=== PATIENT | female | born 1950 | race Caucasian/White ===

== ENCOUNTER → 2020-04-05 | Outpatient (CLI) | payer MEDICARE, OTHER, SELFPAY ==
[2020-03-31 13:27] VITALS: BMI 36.8
--- NOTE | 2020-04-05 11:34 | STRESSREP ---
Stress Test Report Exercise myocardial perfusion stress test. 69-year-old lady with a history of hypertension, hyperlipidemia, diabetes mellitus. Stress protocol: Resting EKG demonstrates sinus bradycardia with a rate of 54 bpm. The resting blood pressure is 134/80 mmHg. The patient exercised according to regular [place] protocol for a total duration of 5 minutes and 35 seconds. The maximum heart rate attained was 113 bpm which was 73% of maximum predicted heart rate the maximum workload was 7 metabolic equivalents. At rest there were no ST or T wave changes noted to suggest ischemia at peak exercise upsloping ST changes were noted with no meet the criteria for ischemia. Patient complained of some dizziness and lightheadedness. No chest pain however was noted. The target heart rate was not achieved. The maximum blood pressure was 162/74 mmHg. Myocardial perfusion protocol. 13.9 mCi of technetium 99m sestamibi was injected at rest. The patient exercised according to regular [place] protocol for 5-1/2 minutes. At peak exercise 44.3 mCi of technetium 99m sestamibi was injected stress images were obtained stress and rest images were reconstructed and compared in the short axis vertical long horizontal long axis. Gated images were also obtained per Perfusion SPECT analysis: Review of the stress images demonstrate normal uptake of tracer noted in all areas of the myocardium the resting images similar demonstrate normal uptake of tracer noted in all areas of the myocardium. No areas of reversibility are noted to suggest ischemia no previous infarct is noted. Gated SPECT analysis: The gated ejection fraction is 80%. Conclusion: Normal exercise myocardial perfusion stress test at a moderate workload. Target heart rate not attained. No clinical angina noted.
== END | disposition home or self-care (01) ==
LOC: CVS 06:13
PROVIDERS: Referring Provider Internal Medicine Cardiovascular Disease; Visit Provider Internal Medicine Cardiovascular Disease
DX: R06.00 Dyspnea, unspecified (principal); R06.02 Shortness of breath
CPT/HCPCS: 78452; 93017; A9500; A4216

== ENCOUNTER 2020-04-20 13:26 | Inpatient (IN) | payer MEDICARE, OTHER, SELFPAY ==
[2020-03-31 13:27] VITALS: BMI 36.8
[2020-04-16 10:30] VITALS: BMI 36.8
[2020-04-19] VITALS (18 sets, daily range): BP systolic 119–153; BP diastolic 58–100; PULSE 51–68; RESP 12–19; TEMP 36.7–36.8; O2SAT 95–99; BMI 37.3
[2020-04-19 07:37] LABS: Absolute Lymphocyte Count 2.11 X10^3/uL (0.83-4.51); Absolute Neutrophil Count 3.3 X10^3/uL (2.0-7.7); Basophil# 0.05 X10^3/uL; Basophil% 0.8 % (0-1); Eosinophil# 0.15 X10^3/uL; Eosinophils% 2.4 % (0-5); Hematocrit 42.7 % (37-47); Hemoglobin 13.6 g/dL (12.0-15.0); Lymphocyte # 2.11 X10^3/ul (4.0); Lymphocyte % 34.4 % (19-41); Mean Corp Hgb Conc 31.9 g/dL (32-36); Mean Corpuscular Hgb 26.9 pg (27.0-32.0); Mean Corpuscular Volume 84.4 fL (81-99); Mean Platelet Vol. 9.9 fl (6.2-12.0); Monocyte# 0.55 X10^3/uL; NRBC Flagged by Analyzer 0 % (0-5); Neutrophil # 3.26 X10^3/uL (2.7-7.7); Neutrophil % 53.1 % (47-70); Platelet Count 224 K/mm3 (150-450); RBC Distribution Width CV 13.5 % (11.6-14.6); RBC Distribution Width SD 41.2 fl (35.1-43.9); Red Blood Count 5.06 M/mm3 (4.2-5.4); White Blood Count 6.1 K/mm3 (4.4-11.0)
[2020-04-19 08:00] LABS: Anion Gap 6 (5-15); BUN 15 mg/dL (7-18); BUN/Creat Ratio 17.4 RATIO (10-20); Calcium,Total 8.9 mg/dL (8.5-10.1); Chloride 105 mmol/L (98-107); Creatinine, Serum 0.86 mg/dL (0.55-1.02); EST Glomerular Filtration Rate 70 mL/min (>60); Est Glom Filt Rate - Afr Amer 84 mL/min (>60); Estimated Creatinine Clearance 50.21 ml/min; Glucose 137 mg/dL (74-106); Sodium Level 138 mmol/L (136-145)
--- NOTE | 2020-04-19 10:25 | CL.D_ITS ---
Patient Name: NEDA BROOKS Study Date: 04/19/2020 Performing: Jose Luis Landa MD Ht: 62.59 inches 159 cm : 1950 Wt: 205.03 lbs 93 kg Age: 69 Gender: female BSA: 1.95 PROCEDURE(S) PERFORMED [id number]/COR/LV [id number] W OR WO PTCA, SINGLE CORONARY ARTERY CLINICAL PROFILE AND INDICATIONS Indications: Suspected CAD Heart Failure: None Stress/Imaging Date: 04/05/2020Stress Test with SPECT MPI: Positive Low Risk CAD Presentations: Stable angina. CONCLUSIONS Significant disease involving the mid left anterior descending artery with small vessel tapering off and moderate disease noted in the right coronary artery. Mild disease noted in the circumflex artery . RECOMMENDATIONS Referred for immediate PCI DESCRIPTION OF PROCEDURE The patient arrived to the procedure lab. The risks and benefits of the procedure as well as a full d escription of our services here and current unavailability of surgical backup were fully explained to the patient and/or their significant other prior to the catheterization. The Timeout was completed, verifying the correct patient and procedure. The patient's procedural site was prepped and draped in the usual fashion. Local anesthetic was given subcutaneously to right radial region with Lidocaine 2% . Using a modified Seldinger technique, arterial access was obtained via the right radial artery, a 6 Fr sheath was inserted. Right Coronary Artery selective angiography was then performed in multiple v iews using a 5 Fr. 4.0 [place] catheter. Left Coronary Artery selective angiography was performed in mu ltiple views using a 5 Fr. JL3.5 catheter. Left Ventriculography was performed in BANDA projection usin g a 5 Fr. Pigtail catheter. LV to AO pullback pressures were then recorded.The arterial sheath was pulled and a TR Band was applied for hemostasis w/ 11ml air CORONARY ANGIOGRAPHY DOMINANCE: Right Dominant LEFT HEART ASSESSMENT Left Ventricular Ejection Fraction: by LV Gram 60 % Normal LV wall motion Normal Left Ventricular systolic function LEFT MAIN: Mild calcification, Non-obstructive LEFT ANTERIOR DESCENDING ARTERY: MID LAD: 85 % Stenosis CIRCUMFLEX ARTERY: Mild luminal irregularities RIGHT CORONARY ARTERY: Mild luminal irregularities less than 30% RT PDA: Proximal - 60 % Stenosis COMPLICATIONS No Complications PROCEDURE MEDICATIONS Versed 1 mg IV Fentanyl 50 mcg IV Versed 1 mg IV Oxygen: 2 L/min via nasal cannula Brilinta 180 mg PO @ 04/19/2020 10:23:37 Heparin diluted in 23cc Heparinized saline. Patient given 10cc IA of this solution. 04/19/2020 09:19: 54 Heparin 6000 unit(s) IV 04/19/2020 09:58:39 Nitro 150 mcg IC 04/19/2020 10:12:11 Verapamil 2.5mg, Ntg 100mcgs, 2000 units of Heparin diluted in 23cc Heparinized saline. Patient give n 10cc IA of this solution. 04/19/2020 09:19:54 SUMMARY OF HEMODYNAMIC DATA Time AIR REST ECG 07:51:34 AO 124/70 (91) SA 09:22:27 LV 115/6, 9 09:36:34 LV 137/3, 11 09:36:41 LV 129/5, 11 09:37:38 LVp 129/8, 20 09:37:47 AOp 135/59 (92) 09:37:52 Signed By Jose Luis Landa MD On 04/19/2020 10:24:20 Jose Luis Landa MD
--- NOTE | 2020-04-19 11:13 | EKG12_ITS ---
Test Reason : PRE CPI Blood Pressure : / mmHG Vent. Rate : 059 BPM Atrial Rate : 059 BPM P-R Int : 182 ms QRS Dur : 078 ms QT Int : 464 ms P-R-T Axes : 042 -14 037 degrees QTc Int : 459 ms Sinus bradycardia Otherwise normal ECG No previous ECGs available Confirmed by SEVERO SOTO, JOSE LUIS ([id number]), slot editor JUSTYN PHILLIPS ([id number]) on 04/20/2020 10:15:05 AM Referred By: Jose Luis Landa Confirmed By:JOSE LUIS LANDA MD
--- NOTE | 2020-04-19 12:15 | EKG12_ITS ---
Test Reason : AM EKG Blood Pressure : / mmHG Vent. Rate : 050 BPM Atrial Rate : 050 BPM P-R Int : 174 ms QRS Dur : 082 ms QT Int : 506 ms P-R-T Axes : 047 -25 050 degrees QTc Int : 461 ms Sinus bradycardia Nonspecific T wave abnormality Abnormal ECG When compared with ECG of 19-APR-2020 11:02, MANUAL COMPARISON REQUIRED, DATA IS UNCONFIRMED Confirmed by JENS SOTO, SONYA ([id number]), restaurant expeditor JUSTYN PHILLIPS ([id number]) on 04/23/2020 9:11:29 AM Referred By: Jose Luis Landa Confirmed By:RICK COLINDRES MD
[2020-04-19] MEDS: 0.9% Normal Saline 1,000 ML 100 ML IV (13:40)
--- NOTE | 2020-04-19 14:00 | NURSING ---
Patient admitted to ICU with Integrilin infusing. Per orders, Integrilin was turned off at 1400.
[2020-04-19 15:35] LABS: Hematocrit 42.9 % (37-47); Hemoglobin 13.3 g/dL (12.0-15.0)
[2020-04-19 16:06] LABS: ACT Activated Clotting Time 202 sec (74-137)
--- NOTE | 2020-04-19 16:14 | CL.I_ITS ---
Patient Name: NEDA BROOKS Study Date: 04/19/2020 Performing: Joycelyn Weston MD Ht: 63 inches 159 cm : 1950 Wt: 205.3 lbs 93 kg Age: 69 Gender: female BSA: 1.95 PROCEDURE(S) PERFORMED [id number] W OR WO PTCA, SINGLE CORONARY ARTERY CLINICAL PROFILE AND CO-MORBIDITIES Indications: Suspected CAD Heart Failure: None Stress/Imaging Date: 04/05/2020 Stress Test with SPECT MPI: Positive Low Risk CAD Presentations: Stable angina. CONCLUSIONS Successful PTCA/SHANI to mLAD RECOMMENDATIONS ASA Indefinitley Brilinta for at least 12 months DESCRIPTION OF PROCEDURE The patient arrived to the procedure lab. The risks and benefits of the procedure as well as a full d escription of our services here and current unavailability of surgical backup were fully explained to the patient and/or their significant other prior to the catheterization. The Timeout was completed, verifying the correct patient and procedure. The patient's procedural site was prepped and draped in the usual fashion. Local anesthetic was given subcutaneously to right radial region with Lidocaine 2% Using a modified Seldinger technique,arterial access was obtained via the right radial artery, a 6Fr sheath was inserted. Right Coronary Artery selective angiography was then performed in multiple view s using a 5 Fr. 4.0 [place] catheter. Left Coronary Artery selective angiography was performed in multi ple views using a 5 Fr. JL3.5 catheter. Left Ventriculography was performed in BANDA projection using a 5 Fr. Pigtail catheter. LV to AO pullback pressures were then recorded.The images were reviewed and options discussed. A decision was then made to proceed with an Intervention, IVUS or oth er adjunct procedure. XB 3.0 Guide catheter was inserted and engaged into the LCA. BMW Guide wire was advanced to the L AD. Emerge 2.00x8 Balloon catheter was inserted. PTCA balloon inflated at 6 atms for 12 secs. Angiogr am performed post balloon dilatation. Synergy 2.25x16 Drug Eluting stent was inserted. Angiogram perf ormed post stent deployment. The arterial sheath was pulled and a TR Band was applied for hemostasi s w/ 11ml air INTERVENTION INFORMATION LESION SITE: LAD (Mid) Lesion Complexity: High/C, chronic total occlusion: No, lesion at bifurcation: Yes, thrombus present: No, lesion length: 14 mm, culprit lesion: Yes, Previously treated lesion: No Pre Stenosis: 80 % Pre intervention DUY flow: 3 PROCEDURE: Drug Eluting Stent with pre dilatation. The vessel was small in diameter at the site of the lesion and distal to it. There was a step down im mediately after the stent. We looked at this in multiple views and decided not to deploy an additiona l stent as there was a risk of perforation or dissection with that approach. Post Stenosis: 0 % Post intervention DUY flow: 3 Lesion Devices: Rico .014 BMW [employer] Straight 190cm Sage Sci EMERGE MR 2.00x08 BALLOON Cardinal 6 Fr XB3.0 100cm Guide Catheter Sage Sci Synergy MR SHANI 2.25x16 COMPLICATIONS No Complications PROCEDURE MEDICATIONS Versed 1 mg IV Fentanyl 50 mcg IV Versed 1 mg IV Oxygen: 2 L/min via nasal cannula Brilinta 180 mg PO @ 04/19/2020 10:23:37 Heparin diluted in 23cc Heparinized saline. Patient given 10cc IA of this solution. 04/19/2020 09:19: 54 Heparin 6000 unit(s) IV 04/19/2020 09:58:39 Nitro 150 mcg IC 04/19/2020 10:12:11 Verapamil 2.5mg, Ntg 100mcgs, 2000 units of Heparin diluted in 23cc Heparinized saline. Patient give n 10cc IA of this solution. 04/19/2020 09:19:54 SUMMARY OF HEMODYNAMIC DATA Time AIR REST ECG 07:51:34 AO 124/70 (91) SA 09:22:27 LV 115/6, 9 09:36:34 LV 137/3, 11 09:36:41 LV 129/5, 11 09:37:38 LVp 129/8, 20 09:37:47 AOp 135/59 (92) 09:37:52 Signed By Joycelyn Weston MD On 04/19/2020 16:13:36 Joycelyn Weston MD
--- NOTE | 2020-04-19 16:34 | CL.I_ITS ---
Patient Name: NEDA BROOKS Study Date: 04/19/2020 Performing: Joycelyn Weston MD Ht: 63 inches 159 cm : 1950 Wt: 205.3 lbs 93 kg Age: 69 Gender: female BSA: 1.95 PROCEDURE(S) PERFORMED [id number] W OR WO PTCA, SINGLE CORONARY ARTERY CLINICAL PROFILE AND CO-MORBIDITIES Indications: Worsening Angina shortly after PCI this am Heart Failure: None Stress/Imaging Stress/Image Study Performed: No CAD Presentations: Unstable angina. CONCLUSIONS Successful PCI with Drug eluting stent and PTCA to the LAD RECOMMENDATIONS Dual antiplatelet therapy for 12 mths DESCRIPTION OF PROCEDURE The patient arrived to the procedure lab. The risks and benefits of the procedure as well as a full d escription of our services here and lack of surgical backup were fully explained to the patient and/o r their significant other prior to the catheterization. The Timeout was completed, verifying the stephanie ect patient and procedure. The patient's procedural site was prepped and draped in the usual fashion. Local anesthetic was given subcutaneously to right groin region with Lidocaine 2%. Using a modified Seldinger technique, arterial access was obtained via the right femoral artery, a 6Fr sheath was inse rted.. Left Coronary Artery selective angiography was performed in multiple views using a 5 Fr. JL4 catheter XB 3.0 Guide catheter was inserted and engaged into the LCA. Whisper Guide wire was advanced to t he LAD. Emerge 1.50x15 Balloon catheter was inserted. PTCA balloon inflated at 6 atms for 11 secs. PT CA balloon inflated at 8 atms for 21 secs. PTCA balloon inflated at 10 atms for 13 secs. Angiogram pe rformed post balloon dilatation. Synergy2.25x8 Drug Eluting stent was inserted. Angiogram performed p ost stent deployment. Synergy 2.25x12 Drug Eluting stent was inserted. Angiogram performed post stent deployment. [place] Emerge 2.25x12 Balloon catheter was inserted. Angiogram performed post balloon dilata tion. Contrast was injected through the sheath and the Right Iliac and Femoral artery were assessed f or possible closure device. The arterial sheath was pulled and a Perclose closure device was deploye d for hemostasis CORONARY ANGIOGRAPHY DOMINANCE: Right Dominant LEFT MAIN: Mild luminal irregularities LEFT ANTERIOR DESCENDING ARTERY: MID LAD: 99 % Stenosis. The stent is patent but there is 99% stenosis immediately distal to it. CIRCUMFLEX ARTERY: Mild luminal irregularities RIGHT CORONARY ARTERY: Mild luminal irregularities RT PDA: Proximal - 60 % Stenosis INTERVENTION INFORMATION LESION SITE: LAD (Mid) Lesion Complexity: High/C, chronic total occlusion: No, lesion at bifurcation: Yes, thrombus present: No, lesion length: 6 mm, culprit lesion: Yes, Previously treated lesion: Yes. The lesion is at the e dge of the SHANI deployed earlier today., In-stent restenosis: No Pre Stenosis: 99 % Pre intervention DUY flow: 2 PROCEDURE: Drug Eluting Stent with pre and post dilatation Post Stenosis: 0 % Post intervention DUY flow: 3 Lesion Devices: Cardinal 6 Fr XB3.0 100cm Guide Catheter Rico .014 HT [place] Straight 190cm Sage Sci EMERGE MR 1.50x15 BALLOON Sage Sci Synergy MR SHANI 2.25x08 Sage Sci Synergy MR SHANI 2.25x12 Sage Sci [place] EMERGE MR 2.25x12 BALLOON COMPLICATIONS No Complications PROCEDURE MEDICATIONS Oxygen: 2 L/min via nasal cannula Nitro 100 mcg IC 04/19/2020 11:23:47 SUMMARY OF HEMODYNAMIC DATA Time AIR REST ECG 11:11:06 AO 162/79 (109) SA 11:23:03 Signed By Joycelyn Weston MD On 04/19/2020 16:33:13 Joycelyn Weston MD
[2020-04-19] MEDS: LORazepam 0.5 MG Tablet PO (21:28)
[2020-04-19] MEDS: TICAGRELOR 90 MG TABLET PO (21:28)
[2020-04-19] MEDS: 0.9% Saline Lock 10 ML Syringe IV (21:36)
[2020-04-19 21:49] LABS: Hemoglobin 12.9 g/dL (12.0-15.0)
[2020-04-20] VITALS (25 sets, daily range): BP systolic 102–136; BP diastolic 50–79; PULSE 48–77; RESP 10–19; TEMP 36.1–36.8; O2SAT 94–100
[2020-04-20 04:06] LABS: Hematocrit 36.2 % (37-47); Hemoglobin 11.4 g/dL (12.0-15.0); Mean Corp Hgb Conc 31.5 g/dL (32-36); Mean Corpuscular Volume 85.6 fL (81-99); Mean Platelet Vol. 10.1 fl (6.2-12.0); Platelet Count 217 K/mm3 (150-450); RBC Distribution Width CV 13.6 % (11.6-14.6); RBC Distribution Width SD 42.2 fl (35.1-43.9); Red Blood Count 4.23 M/mm3 (4.2-5.4); White Blood Count 9.7 K/mm3 (4.4-11.0)
[2020-04-20 04:22] LABS: ALB/GLOB Ratio 0.9 RATIO (0.9-2.4); AST(SGOT) 71 U/L (15-37); Alanine Aminotransfer ALT/SGPT 27 U/L (13-56); Albumin, Serum 2.8 g/dL (3.2-5.0); Alkaline Phosphatase 49 U/L (45-117); Anion Gap 8 (5-15); BUN 15 mg/dL (7-18); BUN/Creat Ratio 20.9 RATIO (10-20); Calcium,Total 7.8 mg/dL (8.5-10.1); Chloride 109 mmol/L (98-107); Creatinine, Serum 0.72 mg/dL (0.55-1.02); EST Glomerular Filtration Rate 86 mL/min (>60); Est Glom Filt Rate - Afr Amer 104 mL/min (>60); Estimated Creatinine Clearance 43.18 ml/min; Glucose 110 mg/dL (74-106); Potassium 3.4 mmol/L (3.5-5.1); Protein, Total 5.8 g/dL (6.4-8.2); Sodium Level 141 mmol/L (136-145)
--- NOTE | 2020-04-20 08:12 | HP_ITS ---
HPI HPI History of Present Illness Details: 69-year-old lady with a history of hypertension, hyperlipidemia, borderline diabetes mellitus who presented to [facility] with chest discomfort which she described as an ache rated at 5 out of 10 nonradiating without diaphoresis and associated lightheadedness on standing. She was not engaged in any particular activity when this was occurring. She denied any shortness of breath when lying flat. She was evaluated in the emergency room her EKG was noted to be normal her troponin was normal. An echocardiogram demonstrated preserved left ventricular systolic function and she had a minimally elevated natruretic peptide of 139. The EF was 60% with no wall motion abnormalities present. She was told after she was discharged that she probably needed to have a cardiac catheterization. Her lipids during that stay demonstrated total cholesterol 107, HDL 46 and LDL 102. She has had no dizziness or diaphoresis no near syncope or syncope. Her blood work as well as her electrocardiogram were reviewed. It demonstrated sinus rhythm with rate of 59 bpm and no changes. Intake Vital Signs 03/31/20 Height 5 ft 2.5 in 03/31/20 Weight: 205 lb 03/31/20 BMI 36.8 03/31/20 BP 138/76 H 03/31/20 Pulse 48 L 03/31/20 Pulse Oximetry (%) 98 Intake Visit Reasons: [place] ER 5-, possible RHC Allergies codeine Adverse Reaction (Verified 03/31/20 13:06) Diarrhea metformin Adverse Reaction (Verified 03/31/20 13:06) gi upset naproxen Adverse Reaction (Verified 03/31/20 13:06) Diarrhea Medications aspirin 81 mg tablet,delayed release 81 mg PO DAILY 03/30/20 [History Confirmed 03/31/20] atenolol 100 mg tablet 100 mg PO DAILY 03/30/20 [History Confirmed 03/31/20] hydrochlorothiazide 12.5 mg tablet 12.5 mg PO DAILY 03/30/20 [History Confirmed 03/31/20] lorazepam 0.5 mg tablet 0.5 mg PO BID PRN 03/30/20 [History Confirmed 03/31/20] pantoprazole 20 mg tablet,delayed release 20 mg PO DAILY 03/30/20 [History Confirmed 03/31/20] potassium gluconate 550 mg (90 mg) tablet 550 mg PO DAILY 03/30/20 [History Confirmed 03/31/20] quinapril 20 mg tablet 20 mg PO DAILY 03/30/20 [History Confirmed 03/31/20] Ejection fraction %: 60 to 64 [facility] Medical History Hyperlipidemia (Chronic) Essential (primary) hypertension (Chronic) Anxiety (Chronic) Obesity (Chronic) Osteoarthritis (Chronic) Type 2 diabetes mellitus (Chronic) Surgical History History of open reduction and internal fixation (ORIF) procedure (Resolved) History of tubal ligation (Resolved) Family History Sister Myocardial infarction age 53 Cancer Sister Heart disease Myocardial infarction, Onset Age: 69 Mother Myocardial infarction, Onset Age: 63 Brother Cancer Other CAD (coronary artery disease) ROS Const Const: Negative for fatigue, weakness, headache(s), frequent falls, difficulty sleeping or excessive sweating Eyes Eyes: Negative for loss of peripheral vision, transient loss of vision, blurry vision, double vision or tunnel vision ENT ENT: Negative for headache(s), dizziness, Nosebleed/epistaxis or balance problems Cardio Chest Pain: Yes (Chest discomfort at rest for several years) Character: tightness Onset: at rest Location: mid sternal, left chest Duration: minutes Exacerbation: activity, rest Palpitations: No Edema: None Muscle aches with walking: None Resp Respiratory: Positive for SOB with activity; negative for SOB at rest, SOB orthopnea\SOB lying down, Cough or paroxysmal nocturnal dyspnea GI GI: Negative nausea, vomiting, heartburn or black,tarry stools : Negative for hematuria Musc Musc: Negative for muscle aches/ myalgia, muscle weakness, joint pain or balance problems Skin Skin: Negative non-healing lesions, rash or unusual bruising Neuro Neuro: Negative for dizziness, lightheadedness, near syncope, syncope, orthostatic symptoms, frequent falls, headache(s), weakness, blurry vision, double vision or lack of coordination Alek Hematologic/Lymphatic: Negative for easy bleeding or easy bruising Endo Endo: Negative for fatigue, excessive sweating or increased thirst/drinking Psych Psych: Negative for anxiety or depression Allergy Allergy/Immunology: Negative for hives, Negative for rash Cardiology Exam Const Appearance: cooperative, healthy appearing, no acute distress, well developed and well groomed Nutritional Appearance: average body habitus and well nourished Orientation: alert, awake and oriented x3 Head Head: normal to inspection, normocephalic and atraumatic Ears: hearing grossly normal bilaterally and external ears normal Nose: external nose normal, nares normal, nasal mucous membranes and turbinates normal, septum normal, no nasal discharge Face and Sinus: face symmetric Mouth: oral mucosae normal, tongue normal, oropharynx normal and moist mucous membranes Teeth and gingiva: dentition normal Throat: posterior oropharynx normal, tonsils normal and uvula midline Eyes General: appearance normal, both eyes and all related structures Eyelids: eyelids normal Conjunctivae: conjunctivae normal Pupils: PERRL, normal by confrontation and accommodation normal EOM: EOM intact bilaterally Neck Neck: normal visual inspection, trachea midline and no JVD JVD: +5 Carotids: normal carotid upstroke and bounding pulses Chest Chest inspection: normal inspection of the chest, symmetric chest movement and normal respiratory effort Auscultation: Bilateral: Clear to Auscultation Cardio Palpation: normal PMI Rate: regular rate Rhythm: regular rhythm Heart sounds: S1 normal, S2 normal and normal, physiologic split S2; negative rub, gallop or murmur GI GI: normal to inspection, soft, no hepatosplenomegaly and bowel sounds present Neuro General: alert, awake, oriented x3, gait normal, moves all extremities and no focal sensory deficit Skin Skin: no rashes or lesions noted Extremities Pulses: Normal: Right Femoral Pulse, Left Femoral Pulse, Right Dorsalis Pedis Pulse, Left Dorsalis Pedis Pulse, Right Posterior Tibial Pulse, Left Posterior Tibial Pulse, Right Radial Pulse, Left Radial Pulse Lower Extremity Edema: None: Bilateral Musculoskel Musculoskeletal: No joint tenderness Psych Psychological: normal affect Assessment & Plan 1. Chest pain R07.9 Plan She does have some shortness of breath etiology of which is not entirely clear at this particular time. It could be an anginal equivalent. Her natruretic peptide level was just mildly elevated. I would like us to proceed with a stress test prior to performing any left heart catheterization. I discussed the above with her she understands and agrees to proceed. Depending on the findings of the above further recommendations will then be made. 2. Dyspnea on exertion R06.00 Plan She does have some dyspnea on exertion. Her ejection fraction was noted to be preserved estimated at 60% with no wall motion abnormalities present. I would not recommend we make any other changes. I do not think that she necessarily needs a diuretic. Orders Orders: Nuclear Stress Test - Treadmil Today 3. Essential (primary) hypertension I10 Plan She will remain on the beta-carlos manuel as well as the INA inhibitor at this particular time together with her hydrochlorothiazide. Her blood pressure today appears to be under good control. Plan Detail Follow Up 1 Month (mmm) Coding Level of Care Code Off vis,new,level 4 Diagnoses Chest pain R07.9 Dyspnea on exertion R06.00 Essential (primary) hypertension I10 Coding Level of Care Code Off vis,new,level 4 Diagnoses Chest pain R07.9 Dyspnea on exertion R06.00 Essential (primary) hypertension I10
--- NOTE | 2020-04-20 08:25 | PN.CARD_ITS ---
Subjectve: Patient seen and evaluated. Appears to be doing better. No further GI bleeding. Objective: Vital Signs Temp Pulse Resp BP Pulse Ox 97 F L 52 L 12 128/51 H 97 04/20/20 04:00 04/20/20 07:37 04/20/20 06:00 04/20/20 06:00 04/20/20 06:00 Oxygen Delivery Method Room Air Weight: 204 lb 2.369 oz Body Mass Index (BMI) 37.3 Intake and Output for Last 24 Hours 04/18/20 04/19/20 04/20/20 23:59 23:59 23:59 Intake Total 813.33 / 1063.33 550 / 550 Output Total 1025 / 1025 0 / 0 Balance -211.67 / 38.33 550 / 550 General: Awake, Alert, Oriented x 3 HEENT: PERRL, EOMI, Sclera Non Icteric Neck: Supple, Good ROM, No Lymph Node Enlargement Lungs: Clear to auscultation Cardiovascular: Regular Rhythm, Normal S1, Normal S2, No Murmurs, No Rubs, No Gallops Vascular: No Carotid Bruits, Normal Femoral Pulses, Normal Radial Pulses, Normal Dorsalis Pedal Pulse, Normal Posterior Tibial Pulses Abdomen: Bowel Sounds Present, Soft, Non Tender, No HSM, No Organomegaly Extremities: No Cyanosis, No Clubbing, No edema Musculoskeletal: No Erythema Skin: No Rashes Lymphatic: No Lymph Node Enlargement Neurological: No Focal Motor or Sensory Deficit Psych/Mental Status: Appropriate 04/19/20 15:20: Hgb 13.3, Hct 42.9 04/19/20 21:35: Hgb 12.9, Hct 41.0 04/20/20 03:35: WBC 9.7, RBC 4.23, Hgb 11.4 L, Hct 36.2 L, MCV 85.6, MCH 27.0, MCHC 31.5 L, Plt Count 217, MPV 10.1 04/20/20 03:35: Sodium 141, Potassium 3.4 L, Chloride 109 H, Carbon Dioxide 24.0, Anion Gap 8, BUN 15, Creatinine 0.72, Est GFR (MDRD) Af Amer 104, Est GFR (MDRD) Non-Af 86, BUN/Creatinine Ratio 20.9 H, Glucose 110 H, Calcium 7.8 L, Total Bilirubin 0.90 Rhythm: EKG: ECHO: Stress Test: Cardiac Cath: PCI: CT Surgery: Holter monitor: EPS: PPM: CXR: Chest CT Scan: Medical Necessity - Tobacco Use Smoking Status: Former smoker Assessment/Plan 1. Status post angioplasty and stenting of the mid left anterior descending artery * The patient underwent angioplasty and stenting of the mid left anterior descending artery. She had to be taken back to the lab yesterday following acute thrombosis of the post stent area. She appears to have done well. EKG this morning does not demonstrate any significant abnormality. Denies any chest pain. Groin and radial site appears to be stable. * Will continue to follow on aspirin and ticagrelor. * Recommend obtain one troponin level. 2. Status post acute GI bleed following coronary intervention * The nature of the bleed appears to be lower GI. Would recommend a GI evaluation eventually. I have consulted the surgeon, Dr. Myrick and have spoken to him. The timing of the lower GI scope will be left up to him. * * Will repeat CBC later today
--- NOTE | 2020-04-20 08:52 | CRPHASE1 ---
Patient Communication PHII Cardiac Rehab Discussed with Patient:: Yes Guide to Cardiac Rehab Given to Patient:: Yes Cardiac Rehab Facility Choice List Given to Patient:: Yes Choice Program [facility] CR PHII:: Communication Given to CR Choice Program Other:: Communication Given to CR Air Sampler:: [facility] Phase II Cardiac Rehab:: Yes Sessions:: 36 sessions - 3 days/wk, 12 weeks Risk Factors/Lifestyle Smoking Status: Former smoker Second-Hand Smoke:: No Hx Hypertension: Yes Hx Metabolic Disorders: Yes Hx Dyslipidemia: Yes Hx Obesity: Yes Post-Menopausal: Yes ETOH: No Caffeine: No Substance Abuse: No Risk Factor for Sedentary Lifestyle: Moderate Risk Family History: Family History (Last Reviewed 03/31/20 @ 14:[address] Jose Luis Landa MD) Sister Myocardial infarction Cancer Sister Heart disease Myocardial infarction, Onset Age: 69 Mother Myocardial infarction, Onset Age: 63 Brother Cancer Other CAD (coronary artery disease) Family History: Cancer, Heart Disease Cardiac Rehabilitation Info Cardiac Rehabilitation Program Information: Cardiac Rehabilitation is important for patients like you who are recovering from a heart problem. Cardiac rehabilitation programs are recognized as integral to the continued care of the patient with coronary heart disease. The cardiac rehabilitation program is designed to optimize a patient's physical, psychological, and social functioning. Health toddler caregiver work in cardiac rehabilitation programs and assist you with getting the treatments you need to get stronger and healthier - like exercise, healthy eating habits, and medications. Cardiac rehabilitation has been show to help people with heart problems live longer and have better life enjoyment than people who do not go to cardiac rehabilitation. Please contact the Cardiac Rehabilitation Program at [facility] at in two weeks if you have not heard from them.
--- NOTE | 2020-04-20 08:54 | CRPH1.INSTRU ---
General Education CAD and cardiac anatomy and function:: Patient communicates acknowledgment Explanation of diagnoses and procedures:: Patient communicates acknowledgment Sign/Symptoms of OK:: Patient communicates acknowledgment Antiplatelet therapy: Patient communicates acknowledgment Proper use of NTG-SL: Patient communicates acknowledgment Emergency procedures and activation of EMS: Patient communicates acknowledgment Compliance of all prescribed medications: Patient communicates acknowledgment Smoking Patient Nicotine/Smoking Risk Factors Are:: Non-smoker Dyslipidemia Recommendations Include:: Lipid profile not available Dyslipidemia Response Code:: Patient communicates acknowledgment Overweight/Obesity Patient Overweight/Obesity Risk Factors Are:: BMI Normal [24-29 & > 65 years old], Overweight = 26-29, Obesity - > or = 30 Recommendations Include:: Weight loss of 5-10%, Reduced calorie diet, Exercise 5-7 times/week Overweight/Obesity:: Patient communicates acknowledgment Hypertension Recommendations Include:: BP <130/80 if diabetic, DASH dietary guidelines, Decrease/maintain normal body weight Hypertension:: Patient communicates acknowledgment Heart Disease Patient Heart Disease Risk Factors Are:: Family history of heart disease < 65 years old Heart Disease Response Code:: Patient communicates acknowledgment Diabetes Patient Diabetes Risk Factors Are:: Elevated blood sugars Recommendations Include:: Maintain fasting blood sugars 70-110 md/dL, Maintain HgbA1c of 6% or less, Monitor blood sugar as prescribed, Diabetic dietary guidelines, Decrease/maintain body weight Diabetes:: Patient communicates acknowledgment Sedentary Patient Sedentary Risk Factors Are:: Lack of regular exercise Recommendations Include:: Aerobic exercise 5-7 times/week for 20-30 minutes continuously, Benefits of regular exercise, Discussed home walking program, Monitored Outpatient Cardiac Rehab Sedentary Response Code:: Patient communicates acknowledgment Stress Patient Stress Risk Factors Are:: Patient denies stress as a risk factor
[2020-04-20] MEDS: TICAGRELOR 90 MG TABLET PO ×2 (08:58→21:18)
[2020-04-20] MEDS: Aspirin E.C. 81 MG Tablet PO (08:59)
[2020-04-20] MEDS: Lisinopril 20 MG Tablet PO (08:59)
[2020-04-20] MEDS: hydroCHLOROthiazide 12.5mg 12.5 MG PO (08:59)
[2020-04-20] MEDS: 0.9% Saline Lock 10 ML Syringe IV ×2 (09:01→22:27)
[2020-04-20] MEDS: Atenolol 50 MG Tablet PO (09:01)
--- NOTE | 2020-04-20 09:30 | PCM.CONS.GEN ---
Problem List (1) GI bleed Status: Acute Qualifiers: GI bleed type/associated pathology: anorectal hemorrhage Qualified Code(s): K62.5 - Hemorrhage of anus and rectum Reason for Consult Date of Consultation: 04/20/20 Reason for Consultation: Anorectal hemorrhage History of Present Illness: The patient is a 69 year old F who had 2 separate heart catheterizations performed yesterday. Patient was heparinized during these procedures. Yesterday after the procedure the patient had bright red blood per stool. She reports overnight this decreased severely and this morning early she did pass a small blood clot but she is not passing blood like she was yesterday. She had some abdominal cramping yesterday but that has resolved. No nausea or vomiting. She does report that she has had intermittent bright red bleeding with constipation episodes in the past. She likely has hemorrhoids. The patient reports that she had a colonoscopy 4 to 5 years ago which was normal. She has no family history of colon cancer. Past Medical History Past Medical History (Chronic Problems): Chronic Problems (Last Updated 04/19/20 @ 20:31 by Antoinette Winchester) Atherosclerosis of coronary artery without angina pectoris (Chronic) Essential (primary) hypertension (Chronic) Hyperlipidemia (Chronic) Medical History: Medical History (Last Updated 04/19/20 @ 20:31 by Antoinette Winchester) Atherosclerosis of coronary artery without angina pectoris (Chronic) I25.10 Essential (primary) hypertension (Chronic) I10 Hyperlipidemia (Chronic) E78.5 Anxiety F41.9 Obesity E66.9 Osteoarthritis M19.90 Type 2 diabetes mellitus E11.9 Allergies codeine Adverse Reaction (Verified 03/31/20 13:06) Diarrhea metformin Adverse Reaction (Verified 03/31/20 13:06) gi upset naproxen Adverse Reaction (Verified 03/31/20 13:06) Diarrhea Home Medications: Ambulatory Orders Medication Instructions Recorded aspirin 81 mg tablet,delayed 81 mg PO DAILY 03/30/20 release atenolol 100 mg tablet 100 mg PO DAILY 03/30/20 hydrochlorothiazide 12.5 mg tablet 12.5 mg PO DAILY 03/30/20 lorazepam 0.5 mg tablet 0.5 mg PO BID PRN 03/30/20 pantoprazole 20 mg tablet,delayed 20 mg PO DAILY 03/30/20 release potassium gluconate 550 mg (90 mg) 550 mg PO DAILY 03/30/20 tablet quinapril 20 mg tablet 20 mg PO DAILY 03/30/20 Surgical History: Surgical History (Last Updated 04/19/20 @ 20:31 by Antoinette Winchester) History of coronary artery stent placement (Resolved) Onset Date: 04/19/20 Z95.5 Pci-SHANI-Mid LAD w/ Synergy 2.25 x 12 mm and a 2.25 x 8 mm Synergy 04/19/2020 History of open reduction and internal fixation (ORIF) procedure Z98.890 left ankle History of tubal ligation Z98.51 Smoking Status: Former smoker Review of Systems Constitutional: Denies: Anorexia, Fever HEENT: Denies: Difficulty Swallowing Respiratory: Denies: Cough, Shortness of Breath Gastrointestinal: Reports: Hematochezia, - - Cramping Genitourinary: Denies: Dysuria Musculoskeletal: Denies: Joint Tenderness Skin: Denies: Jaundice Neurological: Denies: Balance problems Patient Problems: Active and Suspected Problems (Last Updated 04/19/20 @ 20:31 by Antoinette Winchester) GI bleed (Acute) - Physical Exam Vitals/I&O's: Vital Signs Temp Pulse Resp BP Pulse Ox 97.8 F 56 L 13 119/62 97 04/20/20 08:00 04/20/20 08:00 04/20/20 08:00 04/20/20 08:00 04/20/20 09:00 Oxygen Delivery Method Room Air Weight: 204 lb 2.369 oz Body Mass Index (BMI) 37.3 Intake and Output for Last 24 Hours 04/18/20 04/19/20 04/20/20 23:59 23:59 23:59 Intake Total 813.33 / 1063.33 660 / 660 Output Total 1025 / 1025 0 / 0 Balance -211.67 / 38.33 660 / 660 General: Alert, Oriented x3 Neck: No JVD Lungs: Normal air movement Cardiovascular: Regular rate, Regular Rhythm Abdomen: Soft, Non Tender, Non-Distended Musculoskeletal: No Muscle Wasting Neurological: Cranial nerves II-XII grossly intact Psych/Mental Status: Normal Affect Microbiology Past 72 Hours 04/19/20 15:15 Stool Stool Occult Blood (BENI) - Final Laboratory Results 04/19/20 11:25: Activated Clotting Time 202 H 07/13/20 15:20: Hgb 13.3, Hct 42.9 04/19/20 21:35: Hgb 12.9, Hct 41.0 04/20/20 03:35: WBC 9.7, RBC 4.23, Hgb 11.4 L, Hct 36.2 L, MCV 85.6, MCH 27.0, MCHC 31.5 L, RDW Std Deviation 42.2, RDW Coeff of Ibrahima 13.6, Plt Count 217, MPV 10.1 04/20/20 03:35: Sodium 141, Potassium 3.4 L, Chloride 109 H, Carbon Dioxide 24.0, Anion Gap 8, BUN 15, Creatinine 0.72, Estim Creat Clear Calc 43.18, Est GFR (MDRD) Af Amer 104, Est GFR (MDRD) Non-Af 86, BUN/Creatinine Ratio 20.9 H, Glucose 110 H, Calcium 7.8 L, Total Bilirubin 0.90, AST 71 H, ALT 27, Alkaline Phosphatase 49, Total Protein 5.8 L, Albumin 2.8 L, Globulin 3.0, Albumin/Globulin Ratio 0.9 Current Medications Aspirin (Ecotrin) 81 mg PO DAILY [facility] Last Admin: 04/20/20 08:59 Dose: 81 mg Documented by: Atenolol (Tenormin (Beta Christine)) 50 mg PO X1 ONE Stop: 04/20/20 10:01 Last Admin: 04/20/20 09:01 Dose: 50 mg Documented by: Atenolol (Tenormin (Beta Christine)) 100 mg PO DAILY [facility] Atropine Sulfate () 0.5 mg IV UD PRN PRN Reason: HR <50 bpm Heparin Sodium (Beef Lung) (Heparin 500 Unit/5 Ml (100/Ml)) 500 unit IV UD PRN PRN Reason: HEPARIN FLUSH Hydrochlorothiazide () 12.5 mg PO DAILY [facility] Last Admin: 04/20/20 08:59 Dose: 12.5 mg Documented by: Pantoprazole Sodium 40 mg/ (Sodium Chloride) 110 mls @ 330 mls/hr IV Q12 [facility] Last Infusion: 04/20/20 09:22 Dose: Infused Documented by: Labetalol HCl (Trandate) 5 mg IV X1 PRN PRN Reason: SBP > 160 when pulling sheath Stop: 04/21/20 12:05 Lisinopril (Zestril) 20 mg PO DAILY [facility] Last Admin: 04/20/20 08:59 Dose: 20 mg Documented by: Lorazepam (Ativan) 0.5 mg PO BID PRN PRN PRN Reason: ANXIETY Last Admin: 04/19/20 21:28 Dose: 0.5 mg Documented by: Potassium Chloride (K-Dur) 20 meq PO BIDCM [facility] Last Admin: 04/20/20 08:58 Dose: 20 meq Documented by: Sodium Chloride () 500 ml IV BOLUS PRN PRN Reason: VASO-VAGAL PROTOCOL Sodium Chloride () 10 - 40 ml IV UD PRN PRN Reason: SALINE FLUSH Last Admin: 04/20/20 09:01 Dose: 20 ml Documented by: Ticagrelor (Brilinta) 90 mg PO BID [facility] Last Admin: 04/20/20 08:58 Dose: 90 mg Documented by: Assessment/Plan All Active Problems (Last Updated 04/19/20 @ 20:31 by Antoinette Winchester) GI bleed (Acute) Dyspnea on exertion (Acute) Chest pain (Acute) History of coronary artery stent placement (Resolved 04/19/20) 69-year-old female with GI bleed 1. The patient had bright red bleeding per rectum yesterday. She does have a history of hemorrhoids with intermittent bleeding when she does have constipation. She had a colonoscopy 4 to 5 years ago which was normal. The bleeding has decreased and she only passed a small blood clot this morning with no further cramping. Her hemoglobin did drop by 2 g. I recommend continuing clear liquids today and observing her hemoglobin and seeing if she continues to bleed. If she does continue to bleed and her hemoglobin trends downward I would recommend bowel prep tomorrow and colonoscopy . If the bleeding ceases, I would recommend following up as an outpatient I will perform an outpatient colonoscopy on her Brilinta. Adonay Fofana MD Pager: [facility] [address] [place] [address], [address] [place] [address] Office:
--- NOTE | 2020-04-20 10:00 | EKG12_ITS ---
Test Reason : PCI Blood Pressure : / mmHG Vent. Rate : 063 BPM Atrial Rate : 063 BPM P-R Int : 178 ms QRS Dur : 080 ms QT Int : 466 ms P-R-T Axes : 064 -21 029 degrees QTc Int : 476 ms Sinus rhythm with occasional Premature ventricular complexes Otherwise normal ECG No previous ECGs available Confirmed by JENS SOTO, SONYA ([id number]), movie editor JUSTYN PHILLIPS ([id number]) on 04/23/2020 9:11:52 AM Referred By: Jose Luis Landa Confirmed By:RICK COLINDRES MD
[2020-04-20] MEDS: LORazepam 0.5 MG Tablet PO (14:59)
[2020-04-20 15:17] LABS: Hematocrit 40.7 % (37-47); Hemoglobin 12.7 g/dL (12.0-15.0)
[2020-04-21] VITALS (7 sets, daily range): BP systolic 110–138; BP diastolic 58–68; PULSE 52–61; RESP 16–17; TEMP 36.4–36.8; O2SAT 96–100
[2020-04-21] MEDS: LORazepam 0.5 MG Tablet PO (00:45)
[2020-04-21] MEDS: 0.9% Saline Lock 10 ML Syringe IV ×2 (04:57→11:05)
--- NOTE | 2020-04-21 08:01 | ECHOCS_ITS ---
Reason For Study: CAD/ASHD Procedure This was a 2D Doppler, Color Flow transthoracic echocardiogram. The study was technically difficult. Contrast injection was performed. Exam performed portable in patient room. Left Ventricle Normal LV size. The estimated ejection fraction is 45 %. Mild segmental systolic dysfunction (see wall motion). Stage 1 diastolic dysfunction. [place] : Hypokinetic. Mid-anteroseptal : Hypokinetic. Mid-Anterior : Hypokinetic. Inferior [place] : Hypokinetic. The rest of the wall segments are normal. Right Ventricle Normal RV size. Normal systolic function. Atria Normal left atrium. Normal right atrium. Mitral Valve Normal mitral valve. Mild (1+) eccentric mitral valve insufficiency. Tricuspid Valve Normal tricuspid valve. Mild (1+) tricuspid valve insufficiency. Pulmonary artery systolic pressure is 34 mmHg. Aortic Valve The aortic valve is not well visualized. Pulmonic Valve Normal pulmonic valve. Great Vessels Normal aortic root. The pulmonary artery is normal size. Normal inferior vena cava. Pericardium/Pleural No pericardial effusion. Medication Diluted definity 2ml given slow IV push to enhance endocardial definition. MMode/2D Measurements & Calculations LVIDd: 5.1 cm IVSd: 1.1 cm Ao root diam: 3.2 cm LVIDs: 3.0 cm LVPWd: 1.1 cm FS: 40.9 % LAV(MOD-bp): 51.6 ml LA A4 area: 18.4 cm2 RA A4 area: 15.6 cm2 LAV(MOD-bp) Indexed: 27.0 ml/m2 LAV(MOD-sp2): 53.6 ml LAV(MOD-sp4): 46.3 ml Time Measurements MV dec time: 0.31 sec Doppler Measurements & Calculations MV E max brandon: 64.7 cm/sec Lat Peak E' Brandon: 6.5 cm/sec Med Peak E' Brandon: 7.2 cm/sec MV A max brandon: 90.1 cm/sec E/E' lat: 10.0 E/E' med: 9.0 MV E/A: 0.72 MV V2 max: 105.9 cm/sec MV P1/2t max brandon: 69.3 cm/sec Ao V2 max: 104.0 cm/sec MV max P.5 mmHg MV P1/2t: 121.7 msec Ao max P.3 mmHg MV V2 mean: 52.3 cm/sec MV dec slope: 166.9 cm/sec2 MV mean P.3 mmHg MV V2 VTI: 31.8 cm MVA(P1/2t): 1.8 cm2 LV V1 max: 95.6 cm/sec PA V2 max: 110.7 cm/sec TR max brandon: 270.1 cm/sec LV V1 max P.7 mmHg TR max P.2 mmHg Interpretation Summary Normal LV size. The estimated ejection fraction is 45 %. Mild segmental systolic dysfunction (see wall motion). Stage 1 diastolic dysfunction. Contrast injection was performed. Ordering Physician: Jose Luis Landa Referring Physician: Jose Luis Landa Performed By: Zeke Perry RCS
[2020-04-21 08:17] LABS: Hematocrit 36.5 % (37-47); Hemoglobin 11.5 g/dL (12.0-15.0); Mean Corp Hgb Conc 31.5 g/dL (32-36); Mean Corpuscular Hgb 26.7 pg (27.0-32.0); Mean Corpuscular Volume 84.7 fL (81-99); Mean Platelet Vol. 10.6 fl (6.2-12.0); Platelet Count 204 K/mm3 (150-450); RBC Distribution Width CV 13.4 % (11.6-14.6); Red Blood Count 4.31 M/mm3 (4.2-5.4)
[2020-04-21 08:39] LABS: Anion Gap 7 (5-15); BUN 10 mg/dL (7-18); BUN/Creat Ratio 13.1 RATIO (10-20); Calcium,Total 8.4 mg/dL (8.5-10.1); Chloride 105 mmol/L (98-107); Creatinine, Serum 0.76 mg/dL (0.55-1.02); EST Glomerular Filtration Rate 80 mL/min (>60); Est Glom Filt Rate - Afr Amer 97 mL/min (>60); Estimated Creatinine Clearance 43.18 ml/min; Glucose 119 mg/dL (74-106); Potassium 3.8 mmol/L (3.5-5.1); Sodium Level 134 mmol/L (136-145)
[2020-04-21] MEDS: Lisinopril 20 MG Tablet PO (09:20)
[2020-04-21] MEDS: Atenolol 100 MG Tablet PO (09:20)
[2020-04-21] MEDS: TICAGRELOR 90 MG TABLET PO (09:20)
[2020-04-21] MEDS: Aspirin E.C. 81 MG Tablet PO (09:20)
--- NOTE | 2020-04-21 10:00 | EKG12_ITS ---
Test Reason : AM EKG Blood Pressure : / mmHG Vent. Rate : 059 BPM Atrial Rate : 059 BPM P-R Int : 174 ms QRS Dur : 080 ms QT Int : 550 ms P-R-T Axes : 004 -21 198 degrees QTc Int : 544 ms Sinus bradycardia Marked T wave abnormality, consider anterolateral ischemia Prolonged QT Abnormal ECG When compared with ECG of 20-APR-2020 03:32, MANUAL COMPARISON REQUIRED, DATA IS UNCONFIRMED Confirmed by JENS SOTO, SONYA ([id number]), clinical editor JUSTYN PHILLIPS ([id number]) on 04/23/2020 9:14:07 AM Referred By: Jose Luis Landa Confirmed By:RICK COLINDRES MD
--- NOTE | 2020-04-21 10:01 | PN.SURG_ITS ---
Patient Problems: Active and Suspected Problems (Last Updated 04/19/20 @ 20:31 by Antoinette Winchester) History of non-ST elevation myocardial infarction (NSTEMI) (Acute 04/20/20) GI bleed (Acute) Subjective: Patient reports she had a small spot of blood during her last bowel movement but otherwise she had no bloody bowel movements overnight. She is not having any nausea or vomiting. - Physical Exam Vitals/I&O's: Vital Signs Temp Pulse Resp BP Pulse Ox 97.5 F L 61 17 110/68 97 04/21/20 08:58 04/21/20 08:58 04/21/20 08:58 04/21/20 08:58 04/21/20 08:58 Oxygen Delivery Method Room Air Weight: 199 lb 1.239 oz Body Mass Index (BMI) 37.3 Intake and Output for Last 24 Hours 04/19/20 04/20/20 04/21/20 23:59 23:59 23:59 Intake Total 813.33 / 1063.33 1880 / 1880 100 / 100 Output Total 1025 / 1025 525 / 525 300 / 300 Balance -211.67 / 38.33 1355 / 1355 -200 / -200 General: Alert, Oriented x3 Lungs: Normal air movement Abdomen: Soft, Non Tender, Non-Distended Microbiology Past 72 Hours 04/19/20 15:15 Stool Stool Occult Blood (BENI) - Final Laboratory Results 04/20/20 15:00: Hgb 12.7, Hct 40.7 04/20/20 15:00: Troponin I 12.000 H* 04/21/20 08:04: WBC 8.0, RBC 4.31, Hgb 11.5 L, Hct 36.5 L, MCV 84.7, MCH 26.7 L, MCHC 31.5 L, RDW Std Deviation 42.0, RDW Coeff of Ibrahima 13.4, Plt Count 204, MPV 10.6 04/21/20 08:04: Sodium 134 L, Potassium 3.8, Chloride 105, Carbon Dioxide 22.0, Anion Gap 7, BUN 10, Creatinine 0.76, Estim Creat Clear Calc 43.18, Est GFR (MDRD) Af Amer 97, Est GFR (MDRD) Non-Af 80, BUN/Creatinine Ratio 13.1, Glucose 119 H, Calcium 8.4 L Current Medications Aspirin (Ecotrin) 81 mg PO DAILY [facility] Last Admin: 04/21/20 09:20 Dose: 81 mg Documented by: Atenolol (Tenormin (Beta Christine)) 100 mg PO DAILY [facility] Last Admin: 04/21/20 09:20 Dose: 100 mg Documented by: Atropine Sulfate () 0.5 mg IV UD PRN PRN Reason: HR <50 bpm Heparin Sodium (Beef Lung) (Heparin 500 Unit/5 Ml (100/Ml)) 500 unit IV UD PRN PRN Reason: HEPARIN FLUSH Hydrochlorothiazide () 12.5 mg PO DAILY [facility] Last Admin: 04/20/20 08:59 Dose: 12.5 mg Documented by: Pantoprazole Sodium 40 mg/ (Sodium Chloride) 110 mls @ 330 mls/hr IV Q12 [facility] Last Infusion: 04/20/20 22:30 Dose: Infused Documented by: Labetalol HCl (Trandate) 5 mg IV X1 PRN PRN Reason: SBP > 160 when pulling sheath Stop: 04/21/20 12:05 Lisinopril (Zestril) 20 mg PO DAILY [facility] Last Admin: 04/21/20 09:20 Dose: 20 mg Documented by: Lorazepam (Ativan) 0.5 mg PO BID PRN PRN PRN Reason: ANXIETY Last Admin: 04/21/20 00:45 Dose: 0.5 mg Documented by: Potassium Chloride (K-Dur) 20 meq PO BIDCM [facility] Last Admin: 04/21/20 09:20 Dose: 20 meq Documented by: Sodium Chloride () 500 ml IV BOLUS PRN PRN Reason: VASO-VAGAL PROTOCOL Sodium Chloride () 10 - 40 ml IV UD PRN PRN Reason: SALINE FLUSH Last Admin: 04/21/20 04:57 Dose: 10 ml Documented by: Ticagrelor (Brilinta) 90 mg PO BID [facility] Last Admin: 04/21/20 09:20 Dose: 90 mg Documented by: Medical Necessity - Tobacco Use Smoking Status: Former smoker Assessment/Plan All Active Problems (Last Updated 04/19/20 @ 20:31 by Antoinette Winchester) History of non-ST elevation myocardial infarction (NSTEMI) (Acute 04/20/20) GI bleed (Acute) Dyspnea on exertion (Acute) Chest pain (Acute) History of coronary artery stent placement (Resolved 04/19/20) 69-year-old female with GI bleed status post heart catheterization 1. Patient reports that her bleeding has decreased significantly and her hemoglobin is stable. I am okay with regular diet if it is okay with Dr. Landa. I will plan on an outpatient endoscopy on her Brilinta. She is to follow-up with me to get this scheduled and see me in the office. Adonay Fofana MD Pager: [facility] [address] [place] [address], [address] [place] [address] Office:
[2020-04-21] MEDS: hydroCHLOROthiazide 12.5mg 12.5 MG PO (11:05)
--- NOTE | 2020-04-21 11:57 | CASEMGMT ---
MATTHEW GRIFFITH assessment: Face to Face with patient for initial transition planning/care coordination assessment. MATTHEW GRIFFITH introduced self and role at [facility], pt voices understanding and consents to assessment at this time. Pt is sitting up in chair in no distress at this time. Pt is A/Ox4 at this time and answers all questions appropriately at this time. Care providers, pharmacy, and demographics verified/updated at this time. Presentation: Pt presented for OP cath Admitting dx: CP, HTN, FORTE, Abn stress PCP: Paige Specialists: Cordell, cardio; Caustic Operator(cannot remember name) Preferred Pharmacy: [facility] Insurance: MCR A/B, Prescription Benefit: Living Will/HPOA: Pt states has LW/HPOA and is aware that they are not on file at [facility] at this time. Pt states that her , Terell Deng, is HPOA. LNOK: Terell Deng, Living Arrangements: Pt states lives with on main level of 1.5 story home and states no concerns at home at this time. Pt states is independent with ADL's. Transportation: Pt states drives self and states no transportation concerns at this time. DME/HHC: Pt states has no current DME or need for any at this time. Pt states no hx of HHC or SNF in the past. Pt states no concerns with going home at time of discharge. Pt is retired. Pt states does not smoke or drink ETOH. Pt states no further concerns/needs at this time. CM to follow for any further discharge planning/needs. Advised pt to ask for CM if any further questions/concerns/needs arise, voices understanding. Pt Goal: Home Plan[place] MATTHEW GRIFFITH
--- NOTE | 2020-04-21 13:50 | PN.CARD_ITS ---
Subjectve: patient seen and evaluated Objective: Vital Signs Temp Pulse Resp BP Pulse Ox 97.5 F L 52 L 17 110/68 97 04/21/20 08:58 04/21/20 11:35 04/21/20 08:58 04/21/20 08:58 04/21/20 08:58 Oxygen Delivery Method Room Air Weight: 199 lb 1.239 oz Body Mass Index (BMI) 37.3 Intake and Output for Last 24 Hours 04/19/20 04/20/20 04/21/20 23:59 23:59 23:59 Intake Total 813.33 / 1063.33 1880 / 1880 700 / 700 Output Total 1025 / 1025 525 / 525 300 / 300 Balance -211.67 / 38.33 1355 / 1355 400 / 400 General: Awake, Alert, Oriented x 3 HEENT: PERRL, EOMI, Sclera Non Icteric Neck: Supple, Good ROM, No Lymph Node Enlargement Lungs: Clear to auscultation Cardiovascular: Regular Rhythm, Normal S1, Normal S2, No Murmurs, No Rubs, No Gallops 04/20/20 15:00: Hgb 12.7, Hct 40.7 04/20/20 15:00: Troponin I 12.000 H* 04/21/20 08:04: WBC 8.0, RBC 4.31, Hgb 11.5 L, Hct 36.5 L, MCV 84.7, MCH 26.7 L, MCHC 31.5 L, Plt Count 204, MPV 10.6 04/21/20 08:04: Sodium 134 L, Potassium 3.8, Chloride 105, Carbon Dioxide 22.0, Anion Gap 7, BUN 10, Creatinine 0.76, Est GFR (MDRD) Af Amer 97, Est GFR (MDRD) Non-Af 80, BUN/Creatinine Ratio 13.1, Glucose 119 H, Calcium 8.4 L Rhythm: EKG: ECHO: Stress Test: Cardiac Cath: PCI: CT Surgery: Holter monitor: EPS: PPM: CXR: Chest CT Scan: Medical Necessity - Tobacco Use Smoking Status: Former smoker Assessment/Plan 1. Status post angioplasty and stenting of the mid left anterior descending artery with post procedure NSTEMI * The patient underwent angioplasty and stenting of the mid left anterior descending artery. She had to be taken back to the lab following acute thrombosis of the post stent area. She appears to have done well. EKG this morning does demonstrate any significant abnormality. Denies any chest pain. Groin and radial site appears to be stable. * Will continue to follow on aspirin and ticagrelor. * Recommend obtain one troponin level which is elevated. * Echo demonstrates wall motion abnormality consistent with post procedure SC * Will continue beta carlos manuel, statin and aspirin 2. Status post acute GI bleed following coronary intervention * The nature of the bleed appears to be lower GI. Would recommend a GI evaluation eventually. I have consulted the surgeon, Dr. Myrick and have spoken to him. The timing of the lower GI scope will be left up to him. * * Will DC home today
--- NOTE | 2020-04-21 14:11 | CASEMGMT ---
This RN CM to room to provide Brilinta savings card to pt at this time and pt states that she already received one while in the ICU. Pt states no further questions/concerns/needs at this time. Pt states did have another episode of rectal bleeding and Layla CASTRO updated at this time, voices understanding. SStfausto CASTRO CM
--- NOTE | 2020-04-21 15:22 | PCM.DC ---
- Discharge Diagnoses Current Active Problems: Current Active and Chronic Problems (Last Updated 04/19/20 @ 20:31 by Antoinette Winchester) History of non-ST elevation myocardial infarction (NSTEMI) (Acute 04/20/20) GI bleed (Acute) Atherosclerosis of coronary artery without angina pectoris (Chronic) You will use the following diet at home:: Cardiac Your food should be the consistency of: Regular Your liquids should be the consistency of: Regular/Thin Discharge Activity: Return to Normal Activity Call your doctor if you observe: Dizziness, Chest pain Instructions: ED Heart Disease Risk Factors Allergies/Adverse Reactions: Allergies codeine Adverse Reaction (Verified 03/31/20 13:06) Diarrhea metformin Adverse Reaction (Verified 03/31/20 13:06) gi upset naproxen Adverse Reaction (Verified 03/31/20 13:06) Diarrhea Medications to take at Discharge aspirin 81 mg tablet,delayed release 81 mg PO DAILY 03/30/20 atenolol 100 mg tablet 100 mg PO DAILY 03/30/20 hydrochlorothiazide 12.5 mg tablet 12.5 mg PO DAILY 03/30/20 lorazepam 0.5 mg tablet 0.5 mg PO BID PRN 03/30/20 pantoprazole 20 mg tablet,delayed release 20 mg PO DAILY 03/30/20 potassium gluconate 550 mg (90 mg) tablet 550 mg PO DAILY 03/30/20 quinapril 20 mg tablet 20 mg PO DAILY 03/30/20 Ticagrelor [Brilinta] 90 mg PO BID #60 tab 04/21/20 atorvastatin 40 mg tablet 40 mg PO QHS #90 tab 04/21/20 The following prescriptions were given: Ticagrelor [Brilinta] 90 mg PO BID #60 tab Transmission Status: Received by [id number] Orders to be completed after discharge: Phase II, Outpatient Cardiac Rehab Location: None Selected Primary Care Physician: Efrain Gibson DO [Primary Care Provider] - Please follow up with your Primary Care Physician in: 1-2 weeks Test Results: Test results from this visit will be discussed in further detail at your follow-up appointment, if applicable. Please Follow Up With: Jose Luis Landa MD When: 2-4 weeks Proposed Discharge Date: 04/21/20
--- NOTE | 2020-04-21 18:26 | NURSING ---
Patient phones with concern of sharp pain on her inner right leg to her knee that started after she was walking around [place]. Reports that she has never had pain like this before. Denies bleeding from cath site. RN instructed patient to go to ED for evaluation.
== END 2020-04-21 16:00 | disposition home or self-care (01) | DRG 247 ==
LOC: CLSP 13:57 → ICU 13:57 → PCU 17:14
PROVIDERS: Specialist; Admitting Provider Internal Medicine Cardiovascular Disease; Referring Provider Internal Medicine Cardiovascular Disease; Visit Provider Internal Medicine Cardiovascular Disease
DX: I25.119 Atherosclerotic heart disease of native coronary artery with unspecified angina pectoris (principal); I24.0 Acute coronary thrombosis not resulting in myocardial infarction; K62.5 Hemorrhage of anus and rectum; I10 Essential (primary) hypertension; E78.5 Hyperlipidemia, unspecified; E11.9 Type 2 diabetes mellitus without complications; E66.9 Obesity, unspecified; M19.90 Unspecified osteoarthritis, unspecified site; Z87.891 Personal history of nicotine dependence; Z68.36 Body mass index [BMI] 36.0-36.9, adult
CPT/HCPCS: 36415; 80048; 80053; 82274; 84484; 85014; 85018; 85025; 85027; 85347; 92920; 93005; 93306; 93454; 93458; 99152; 99153; J7030; J7040; Q9957; Q9967; A4216; C1725; C1760; C1769; C1874; C1887; C1894; C8929; J1327

== ENCOUNTER 2020-04-23 06:42 | Observation (INO) | payer MEDICARE, OTHER, SELFPAY ==
[2020-04-19 12:53] VITALS: BMI 37.3
[2020-04-23] VITALS (15 sets, daily range): BP systolic 96–177; BP diastolic 45–85; PULSE 52–80; RESP 15–18; TEMP 36.1–37.1; O2SAT 94–100; BMI 36.5; BMI 35.9
[2020-04-23 06:56] LABS: Absolute Lymphocyte Count 1.83 X10^3/uL (0.83-4.51); Absolute Neutrophil Count 5.5 X10^3/uL (2.0-7.7); Basophil# 0.06 X10^3/uL; Basophil% 0.7 % (0-1); Eosinophil# 0.17 X10^3/uL; Eosinophils% 2.1 % (0-5); Hematocrit 40.1 % (37-47); Hemoglobin 12.7 g/dL (12.0-15.0); Lymphocyte # 1.83 X10^3/ul (4.0); Lymphocyte % 22.3 % (19-41); Mean Corp Hgb Conc 31.7 g/dL (32-36); Mean Corpuscular Hgb 26.5 pg (27.0-32.0); Mean Corpuscular Volume 83.7 fL (81-99); Mean Platelet Vol. 10.3 fl (6.2-12.0); Monocyte# 0.62 X10^3/uL; Monocyte% 7.6 % (0-10); NRBC Flagged by Analyzer 0 % (0-5); Neutrophil # 5.46 X10^3/uL (2.7-7.7); Neutrophil % 66.6 % (47-70); Platelet Count 259 K/mm3 (150-450); RBC Distribution Width CV 13.2 % (11.6-14.6); RBC Distribution Width SD 40.3 fl (35.1-43.9); Red Blood Count 4.79 M/mm3 (4.2-5.4); White Blood Count 8.2 K/mm3 (4.4-11.0)
--- NOTE | 2020-04-23 06:59 | EKG12_ITS ---
Test Reason : GI BLEED Blood Pressure : / mmHG Vent. Rate : 054 BPM Atrial Rate : 054 BPM P-R Int : 170 ms QRS Dur : 088 ms QT Int : 540 ms P-R-T Axes : 013 -27 040 degrees QTc Int : 512 ms Sinus bradycardia T wave abnormality, consider anterolateral ischemia Prolonged QT Abnormal ECG Confirmed by SEVERO SOTO, JOCELYN ([id number]), field map editor JUSTYN PHILLIPS ([id number]) on 04/27/2020 9:19:12 AM Referred By: JUAN CARLOS Confirmed By:JOCELYN ELKINS MD
[2020-04-23 07:09] LABS: Anion Gap 9 (5-15); BUN 15 mg/dL (7-18); BUN/Creat Ratio 17.3 RATIO (10-20); Calcium,Total 9.4 mg/dL (8.5-10.1); Chloride 102 mmol/L (98-107); Creatinine, Serum 0.87 mg/dL (0.55-1.02); EST Glomerular Filtration Rate 69 mL/min (>60); Est Glom Filt Rate - Afr Amer 84 mL/min (>60); Estimated Creatinine Clearance 49.63 ml/min; Glucose 117 mg/dL (74-106); Potassium 3.8 mmol/L (3.5-5.1); Sodium Level 136 mmol/L (136-145)
[2020-04-23 07:10] LABS: International Normalized Ratio 1.1; Partial Thromboplast Time 25.1 Seconds (24.1-36.2); Prothrombin Time (Protime)PT. 13.3 SECONDS (11.7-14.9)
--- NOTE | 2020-04-23 08:19 | ED.DCSUM_ITS ---
- ER Visit Summary Date of Service: 04/23/20 Chief Complaint: GI bleed History of Present Illness: The patient is a [address] Landa, Dr. Fofana, and Dr. Gibson. She reports the 4 days ago she had a heart catheterization and 3 stents were placed. This was followed by a small amount of GI bleeding. She states that this seemed to improve and she was discharged 2 days ago. She denies any bleeding yesterday. Reports that since 1 AM she has had 3 episodes of diarrhea with maroon-colored and bright red blood. She also reports there is been some clot. She reports that she has an aching, dull diffuse abdominal pain is 9-10 at worst and 6 out of 10 currently. Is worsened by food and relieved by an acids. She denies any nausea or vomiting. Patient reports that she has mild chest pain ever since the heart catheterization. It has been constant. She also complains of generalized weak ness. She reports her last colonoscopy was several years ago. Physical Examination: Vitals: Stable. Afebrile. General: Well-nourished and well-developed. Head: Normocephalic atraumatic. Neck: Supple, no lymphadenopathy. No JVD. Nontender. Cardiovascular: Regular rate and rhythm. No murmurs. Respiratory: No respiratory distress. Clear to auscultation bilaterally. Abdominal: Soft, nontender, nondistended, normal bowel sounds. No guarding, rebound, or peritoneal signs. Back: Nontender. Extremities: Nontender, no edema. Skin: Normal color, no rash. Neurologic: Alert and oriented ?3. Cranial nerves II through XII are intact. Normal strength and sensation. Psych: Normal affect. Test Results: EKG is sinus bradycardia at 54 with precordial T wave inversions. Her QTC is 512. On her last EKG it was 459. The precordial T wave inversions are new as well. Her troponin is 2.37. However, her troponin was 12 on April 20. Coags are normal. Chem-7 shows a glucose of 117. CBC is remarkable for a hemoglobin of 12.7. Of note her hemoglobin was 11.4?13.6 previously this month. Emergency Department Course and Treatment: Patient had negative orthostatic vital signs while here. She has not had any bowel movements while here. Treatment Plan: Patient was discussed with Dr. Landa. She needs to continue the Brilinta unless her GI bleeding is life-threatening. She was also discussed with Dr. Robbins. She will be discussed with the hospitalist and admitted for observation and repeat hemoglobins. Disposition: Admitted in stable condition. Impression: 1. Stable lower GI bleed. 2. 4-day status post cardiac catheterization with stent placement. 3. Coagulopathy on Brilinta. This note was generated with [employer] dictation software. It may contain incorrect words, spelling, and punctuation that were not noted in review of the chart prior to signing ED Disposition - Plan for ED Patient: Referrals: Efrain Gibson DO [Primary Care Provider] -
--- NOTE | 2020-04-23 08:27 | NURSING ---
PCU KITTOE GI BLEED, CP, SOB OBS
--- NOTE | 2020-04-23 09:04 | HP.PCM_ITS ---
Problem List (1) History of non-ST elevation myocardial infarction (NSTEMI) Status: Chronic (2) GI bleed Status: Acute Qualifiers: GI bleed type/associated pathology: anorectal hemorrhage Qualified Code(s): K62.5 - Hemorrhage of anus and rectum (3) Dyspnea on exertion Status: Chronic (4) Chest pain Status: Chronic (5) Atherosclerosis of coronary artery without angina pectoris Status: Chronic (6) Essential (primary) hypertension Status: Chronic (7) Hyperlipidemia Status: Chronic History of Present Illness Date of Admission: 04/23/20 Chief Complaint: Bleeding per rectum The patient is a 69 year old F with recent admission for acute non-STEMI for which he underwent underwent angioplasty and stenting of the mid left anterior d escending artery.. Patient had apparently developed some bleeding per rectum during her hospital stay. Was discharged home on 04/21/2020 presented 2 days following her discharge with diarrhea with some blood in her stool. Patient presented to the emergency department as a result. Hemoglobin at the time of admission was stable. Consult was placed to general surgery decision was made for patient to undergo emergency upper EGD. Past Medical History Past Medical History (Chronic Problems): Chronic Problems (Last Reviewed 04/23/20 @ 10:[address] Efrain Calhoun MD) History of non-ST elevation myocardial infarction (NSTEMI) (Chronic 04/20/20) Dyspnea on exertion (Chronic) Chest pain (Chronic) Atherosclerosis of coronary artery without angina pectoris (Chronic) Essential (primary) hypertension (Chronic) Hyperlipidemia (Chronic) Medical History: Medical History (Last Reviewed 04/23/20 @ 11:[address] Efrain Calhoun MD) Atherosclerosis of coronary artery without angina pectoris (Chronic) I25.10 Essential (primary) hypertension (Chronic) I10 Hyperlipidemia (Chronic) E78.5 Anxiety F41.9 Obesity E66.9 Osteoarthritis M19.90 Type 2 diabetes mellitus E11.9 Allergies codeine Adverse Reaction (Verified 04/23/20 06:48) Diarrhea metformin Adverse Reaction (Verified 04/23/20 06:48) gi upset naproxen Adverse Reaction (Verified 04/23/20 06:48) Diarrhea Home Medications: Ambulatory Orders Medication Instructions Recorded aspirin 81 mg tablet,delayed 81 mg PO DAILY 03/30/20 release atenolol 100 mg tablet 100 mg PO DAILY 03/30/20 hydrochlorothiazide 12.5 mg tablet 12.5 mg PO DAILY 03/30/20 potassium gluconate 550 mg (90 mg) 550 mg PO DAILY 03/30/20 tablet quinapril 20 mg tablet 20 mg PO DAILY 03/30/20 Ticagrelor [Brilinta] 90 mg PO BID #60 tab 04/21/20 atorvastatin 40 mg tablet 40 mg PO QHS #90 tab 04/21/20 Surgical History: Surgical History (Last Reviewed 04/23/20 @ 10:[address] Efrain Calhoun MD) History of coronary artery stent placement (Resolved) Onset Date: 04/19/20 Z95.5 Pci-SHANI-Mid LAD w/ Synergy 2.25 x 12 mm and a 2.25 x 8 mm Synergy 04/19/2020 History of open reduction and internal fixation (ORIF) procedure Z98.890 left ankle History of tubal ligation Z98.51 Smoking Status: Former smoker - *Family History Maternal Family History: Family History (Last Reviewed 04/23/20 @ 11:[address] Efrain Calhoun MD) Sister Myocardial infarction Cancer Sister Heart disease Myocardial infarction, Onset Age: 69 Mother Myocardial infarction, Onset Age: 63 Brother Cancer Other CAD (coronary artery disease) Review of Systems Constitutional: Denies: Anorexia, Chills, Fever, Night Sweats, Weight Change HEENT: Denies: Head Aches, Sinus Congestion, Sinus Drainage Cardiovascular: Denies: Chest Pain, Orthopnea, Palpitations, Paroxysmal Noc. Dyspnea Respiratory: Denies: Cough, Shortness of breath at rest, Shortness of breath upon exertion, Sputum production Gastrointestinal: Reports: Diarrhea, Hematochezia. Denies: Abdominal Pain, Hematemesis, Nausea, Melena, Vomiting Genitourinary: Denies: Dysuria, Frequency, Hematuria, Urgency Musculoskeletal: Denies: Joint Pain, Joint Tenderness Skin: Denies: Rash Neurological: Denies: Focal weakness, Numbness, Tingling Psychiatric: Denies: Homicidal Ideations, Suicidal Ideations Hematologic/ Lymphatic: Denies: Easy Bruising, Easy Bleeding VTE Information - Inpt Only VTE Present on Admission: No VTE Mechan Device Prophylaxis: None VTE Pharm Prophylaxis ordered?: Yes Reason prophylaxis not ordered:: Medical Contraindication Objective: GENERAL: cooperative HEENT: Atraumatic; EYES; Anicteric, Normal Conjunctiva NECK; supple, normal thyroid, RESPIRATORY: Diminished to auscultation CARDIOVASCULAR: Regular S1 S2, GI: soft, normoactive bowel sounds, : No Renal angle tenderness; EXTREMITIES: No edema, no clubbing, MUSCULOSKELETAL: no muscle waisting NEURO: Awake; no lateralizing signs. SKIN: No Rash PSYCH; Flat affect - Physical Exam Vitals/I&O's: Vital Signs Temp Pulse Resp BP Pulse Ox 98.1 F 57 L 15 142/68 H 96 04/23/20 08:37 04/23/20 08:37 04/23/20 08:37 04/23/20 08:37 04/23/20 08:37 Oxygen Delivery Method Room Air Weight: 90.6 kg Body Mass Index (BMI) 36.5 Laboratory Results 04/23/20 06:46: WBC 8.2, RBC 4.79, Hgb 12.7, Hct 40.1, MCV 83.7, MCH 26.5 L, MCHC 31.7 L, RDW Std Deviation 40.3, RDW Coeff of Ibrahima 13.2, Plt Count 259, MPV 10.3, Immature Gran % (Auto) 0.700, Neut % (Auto) 66.6, Lymph % (Auto) 22.3, [place] % (Auto) 7.6, Eos % (Auto) 2.1, Baso % (Auto) 0.7, Absolute Neuts (auto) 5.5, Absolute Lymphs (auto) 1.83, Nucleated RBC % 0 04/23/20 06:46: PT 13.3, INR 1.1, APTT 25.1 04/23/20 06:46: Sodium 136, Potassium 3.8, Chloride 102, Carbon Dioxide 25.0, Anion Gap 9, BUN 15, Creatinine 0.87, Estim Creat Clear Calc 49.63, Est GFR (MDRD) Af Amer 84, Est GFR (MDRD) Non-Af 69, BUN/Creatinine Ratio 17.3, Glucose 117 H, Calcium 9.4 04/23/20 06:46: Troponin I 2.370 H* Assessment/Plan All Active Problems (Last Reviewed 04/23/20 @ 10:[address] Efrain Calhoun MD) GI bleed (Acute) History of coronary artery stent placement (Resolved 04/19/20) Patient is a 69-year-old lady presenting with bleeding per rectum 1. Acute GI bleed ?Patient admitted to monitored bed. Patient was started on Protonix drip, H&H ordered every 4 consultation placed to general surgery Case discussed with Dr. Fofana. Plans for patient to undergo emergency EGD and if negative patient will undergo subsequent evaluation with colonoscopy possibly prior to her discharge 2. Coronary artery disease with recent PCI ?Patient underwent angioplasty and stenting of the mid left anterior descending artery. 3. Hypertension - Blood pressure controlled, home medications continued with dose adjustment as needed 4. Obesity with BMI of 36.5 ?Weight loss advised 5. DVT prophylaxis ?Systemic chemoprophylaxis contraindicated in view of patient active GI bleed OBSV E&M: [id number] Initial observation care L3
--- NOTE | 2020-04-23 09:06 | ED.RN ---
DR TREVIÑO CAME IN TO SEE THE PT AND ASKED SHE BE TAKEN TO AC TO BE SET UP FOR HER EGD TODAY. PCU NOTIFIED OF CHANGE
--- NOTE | 2020-04-23 09:44 | PCM.CONS.GEN ---
Problem List (1) GI bleed Status: Acute Qualifiers: GI bleed type/associated pathology: anorectal hemorrhage Qualified Code(s): K62.5 - Hemorrhage of anus and rectum Reason for Consult Date of Consultation: 04/23/20 History of Present Illness: The patient is a 69 year old F was recently seen in the hospital earlier this week after heart cath when she developed a GI bleed. She reports that she has been doing well since discharge until 1 AM this morning when she started having blood per rectum again. She reports that it was dark and she was having clots. She is also having abdominal pain that comes and goes. Past Medical History Past Medical History (Chronic Problems): Chronic Problems (Last Updated 04/19/20 @ 20:31 by Antoinette Winchester) Atherosclerosis of coronary artery without angina pectoris (Chronic) Essential (primary) hypertension (Chronic) Hyperlipidemia (Chronic) Medical History: Medical History (Last Updated 04/19/20 @ 20:31 by Antoinette Winchester) Atherosclerosis of coronary artery without angina pectoris (Chronic) I25.10 Essential (primary) hypertension (Chronic) I10 Hyperlipidemia (Chronic) E78.5 Anxiety F41.9 Obesity E66.9 Osteoarthritis M19.90 Type 2 diabetes mellitus E11.9 Allergies codeine Adverse Reaction (Verified 04/23/20 06:48) Diarrhea metformin Adverse Reaction (Verified 04/23/20 06:48) gi upset naproxen Adverse Reaction (Verified 04/23/20 06:48) Diarrhea Home Medications: Ambulatory Orders Medication Instructions Recorded aspirin 81 mg tablet,delayed 81 mg PO DAILY 03/30/20 release atenolol 100 mg tablet 100 mg PO DAILY 03/30/20 hydrochlorothiazide 12.5 mg tablet 12.5 mg PO DAILY 03/30/20 potassium gluconate 550 mg (90 mg) 550 mg PO DAILY 03/30/20 tablet quinapril 20 mg tablet 20 mg PO DAILY 03/30/20 Ticagrelor [Brilinta] 90 mg PO BID #60 tab 04/21/20 atorvastatin 40 mg tablet 40 mg PO QHS #90 tab 04/21/20 Surgical History: Surgical History (Last Updated 04/19/20 @ 20:31 by Antoinette Winchester) History of coronary artery stent placement (Resolved) Onset Date: 04/19/20 Z95.5 Pci-SHANI-Mid LAD w/ Synergy 2.25 x 12 mm and a 2.25 x 8 mm Synergy 04/19/2020 History of open reduction and internal fixation (ORIF) procedure Z98.890 left ankle History of tubal ligation Z98.51 Smoking Status: Former smoker Review of Systems Constitutional: Denies: Anorexia, Fever Cardiovascular: Denies: Chest Pain Respiratory: Denies: Cough Gastrointestinal: Reports: Abdominal Pain, Hematochezia. Denies: Nausea, Vomiting - Physical Exam Vitals/I&O's: Vital Signs Temp Pulse Resp BP Pulse Ox 98.1 F 62 16 142/68 H 97 04/23/20 09:26 04/23/20 09:26 04/23/20 09:26 04/23/20 09:26 04/23/20 09:26 Oxygen Delivery Method Room Air Weight: 199 lb 11.821 oz Body Mass Index (BMI) 36.5 General: Alert, Oriented x3 Neck: No JVD Lungs: Normal air movement Cardiovascular: Regular rate, Regular Rhythm Abdomen: Soft, Non Tender, Non-Distended Laboratory Results 04/23/20 06:46: WBC 8.2, RBC 4.79, Hgb 12.7, Hct 40.1, MCV 83.7, MCH 26.5 L, MCHC 31.7 L, RDW Std Deviation 40.3, RDW Coeff of Ibrahima 13.2, Plt Count 259, MPV 10.3, Immature Gran % (Auto) 0.700, Neut % (Auto) 66.6, Lymph % (Auto) 22.3, [place] % (Auto) 7.6, Eos % (Auto) 2.1, Baso % (Auto) 0.7, Absolute Neuts (auto) 5.5, Absolute Lymphs (auto) 1.83, Nucleated RBC % 0 04/23/20 06:46: PT 13.3, INR 1.1, APTT 25.1 04/23/20 06:46: Sodium 136, Potassium 3.8, Chloride 102, Carbon Dioxide 25.0, Anion Gap 9, BUN 15, Creatinine 0.87, Estim Creat Clear Calc 49.63, Est GFR (MDRD) Af Amer 84, Est GFR (MDRD) Non-Af 69, BUN/Creatinine Ratio 17.3, Glucose 117 H, Calcium 9.4 04/23/20 06:46: Troponin I 2.370 H* Assessment/Plan All Active Problems (Last Updated 04/19/20 @ 20:31 by Antoinette Winchester) History of non-ST elevation myocardial infarction (NSTEMI) (Acute 04/20/20) GI bleed (Acute) Dyspnea on exertion (Acute) Chest pain (Acute) History of coronary artery stent placement (Resolved 04/19/20) 69-year-old female with GI bleed 1. The patient is having GI bleeds following heart catheterization. She is on Brilinta which needs to be continued. She had several stents placed earlier this week. I discussed EGD with her today. I will plan for a light sedation and EGD to ensure that there is not an upper GI bleed before proceeding with bowel prep and colonoscopy. She is not having any chest pain at this time. We will obtain a 12-lead EKG before surgery. Adonay Fofana MD Pager: [facility] [address] [place] [address], [address] [place] [address] Office:
--- NOTE | 2020-04-23 11:11 | OP.EGD_ITS ---
Patient Name: Courtney Deng Procedure Date: 04/23/2020 10:46 AM Date of : 1950 Age: 69 Procedure: Upper GI endoscopy Indications: Hematochezia Providers: Adonay Fofana MD Medicines: Monitored Anesthesia Care Patient Profile: This is a 69 year old female. Refer to note in patient chart for documentation of history and physical. Complications: No immediate complications. Procedure: Pre-Anesthesia Assessment: - Prior to the procedure, a History and Physical was performed, and patient medications and allergies were reviewed. The patient's tolerance of previous anesthesia was also reviewed. The risks and benefits of the procedure and the sedation options and risks were discussed with the patient. All questions were answered, and informed consent was obtained. Anticoagulants: The patient has taken anticoagulant medication. It was decided not to withhold this medication prior to the procedure. After reviewing the risks and benefits, the patient was deemed in satisfactory condition to undergo the procedure. After obtaining informed consent, the endoscope was passed under direct vision. Throughout the procedure, the patient's blood pressure, pulse, and oxygen saturations were monitored continuously. The gastroscope was introduced through the mouth, and advanced to the fourth part of duodenum. The upper GI endoscopy was accomplished without difficulty. The patient tolerated the procedure well. Scope In: 10:58:57 AM Scope Out: 11:01:10 AM Total Procedure Duration Time 0 hours 2 minutes 13 seconds Findings: The esophagus was normal. The stomach was normal. The examined duodenum was normal. Impression: - Normal esophagus. - Normal stomach. - Normal examined duodenum. - No specimens collected. Recommendation: - Return patient to [facility] care. - Clear liquid diet. - Continue present medications. - Perform a colonoscopy tomorrow. Procedure Code(s): --- Professional --- 88314, Esophagogastroduodenoscopy, flexible, transoral; diagnostic, including collection of specimen(s) by brushing or washing, when performed (separate procedure) Diagnosis Code(s): --- Professional --- K92.1, Melena (includes Hematochezia) CPT copyright 2017 [employer]. All rights reserved. The codes documented in this report are preliminary and upon stock plan administrator review may be revised to meet current compliance requirements. Adonay Fofana MD 04/23/2020 11:10:50 AM This report has been signed electronically. Number of Addenda: 0 Note Initiated On: 04/23/2020 10:46 AM
--- NOTE | 2020-04-23 11:11 | OP.CCLET_ITS ---
04/23/2020 Efrain Gibson Do Re : Upper GI endoscopy procedure for Courtney Glass Dear Dr. Gibson This procedure was performed on Thursday, April 23, 2020. My impressions and recommendations are as follows: Impressions : - Normal esophagus. - Normal stomach. - Normal examined duodenum. - No specimens collected. Recommendations : - [facility] patient to [facility] care. - Clear liquid diet. - Continue present medications. - Perform a colonoscopy tomorrow. My findings are described in the full procedure note, which is enclosed. If I can be of further assistance, please feel free to contact me at Doctor phone number(s): , Work: . Sincerely, Adonay Fofana MD 04/23/2020 11:10:50 AM This report has been signed electronically.
[2020-04-23] MEDS: TICAGRELOR 90 MG TABLET PO ×2 (12:49→21:15)
[2020-04-23] MEDS: Atenolol 50 MG Tablet 100 MG PO (12:49)
[2020-04-23] MEDS: Aspirin E.C. 81 MG Tablet PO (12:49)
[2020-04-23] MEDS: hydroCHLOROthiazide 25 MG Tablet 12.5 MG PO (12:49)
[2020-04-23] MEDS: Lactated Ringers 1,000 ML 75 ML IV (12:54)
[2020-04-23 13:11] LABS: Hemoglobin 11.8 g/dL (12.0-15.0)
[2020-04-23] MEDS: Bisacodyl 5 MG Tablet 20 MG PO (14:14)
[2020-04-23 16:53] LABS: Hemoglobin 12.1 g/dL (12.0-15.0)
[2020-04-23] MEDS: Acetaminophen 325 MG Tablet 650 MG PO (17:04)
[2020-04-23] MEDS: Polyethylene Glycol 3350 BOWEL PREP PO (17:06)
[2020-04-23 17:31] LABS: Bedside Glucose 101 mg/dL (70-110)
[2020-04-23] MEDS: Atorvastatin Calcium 40 MG Tablet PO (21:14)
[2020-04-23 21:46] LABS: Bedside Glucose 143 mg/dL (70-110)
[2020-04-23 22:07] LABS: Hemoglobin 13.1 g/dL (12.0-15.0)
[2020-04-23] MEDS: Ondansetron 4 MG/2 ML Vial IV (23:13)
[2020-04-23] MEDS: LORazepam 0.5 MG Tablet PO (23:28)
[2020-04-23] MEDS: Morphine 2 MG/ML Syringe IV (23:30)
[2020-04-23] MEDS: 0.9% Saline Lock 10 ML Syringe IV (23:32)
[2020-04-24] VITALS (8 sets, daily range): BP systolic 98–142; BP diastolic 60–68; PULSE 49–68; RESP 12–16; TEMP 36.3–36.8; O2SAT 94–99; BMI 35.9
[2020-04-24 00:12] LABS: Hematocrit 39.4 % (37-47); Hemoglobin 12.7 g/dL (12.0-15.0)
[2020-04-24] MEDS: cycloBENZAPRine HCl 10 MG Tablet PO (00:26)
[2020-04-24] MEDS: Lactated Ringers 1,000 ML 75 ML IV (02:51)
[2020-04-24] MEDS: Acetaminophen 325 MG Tablet 650 MG PO ×2 (02:57→11:54)
--- NOTE | 2020-04-24 03:10 | NURSING ---
Handoff report given to You Omalley RN who will be taking over care of pt. at this time.
[2020-04-24 06:37] LABS: Absolute Lymphocyte Count 1.73 X10^3/uL (0.83-4.51); Absolute Neutrophil Count 6.2 X10^3/uL (2.0-7.7); Basophil# 0.03 X10^3/uL; Basophil% 0.3 % (0-1); Eosinophil# 0.09 X10^3/uL; Hematocrit 35.1 % (37-47); Hemoglobin 11.2 g/dL (12.0-15.0); Lymphocyte # 1.73 X10^3/ul (4.0); Lymphocyte % 19.4 % (19-41); Mean Corp Hgb Conc 31.9 g/dL (32-36); Mean Corpuscular Hgb 26.5 pg (27.0-32.0); Mean Corpuscular Volume 83.2 fL (81-99); Mean Platelet Vol. 10.6 fl (6.2-12.0); Monocyte# 0.78 X10^3/uL; Monocyte% 8.8 % (0-10); NRBC Flagged by Analyzer 0 % (0-5); Neutrophil # 6.23 X10^3/uL (2.7-7.7); Neutrophil % 70.1 % (47-70); Platelet Count 254 K/mm3 (150-450); RBC Distribution Width CV 13.3 % (11.6-14.6); RBC Distribution Width SD 39.6 fl (35.1-43.9); Red Blood Count 4.22 M/mm3 (4.2-5.4); White Blood Count 8.9 K/mm3 (4.4-11.0)
[2020-04-24 07:02] LABS: Anion Gap 8 (5-15); BUN 10 mg/dL (7-18); BUN/Creat Ratio 12.9 RATIO (10-20); Calcium,Total 8.5 mg/dL (8.5-10.1); Chloride 101 mmol/L (98-107); Creatinine, Serum 0.77 mg/dL (0.55-1.02); EST Glomerular Filtration Rate 79 mL/min (>60); Est Glom Filt Rate - Afr Amer 96 mL/min (>60); Estimated Creatinine Clearance 41.19 ml/min; Glucose 110 mg/dL (74-106); Magnesium 1.6 mg/dL (1.6-2.6); Phosphorus 4.3 mg/dL (2.5-4.9); Potassium 3.7 mmol/L (3.5-5.1); Sodium Level 135 mmol/L (136-145)
--- NOTE | 2020-04-24 07:21 | PCM.PN.SRG ---
Subjective: Patient did have some bleeding with her prep. Bright red, hemoglobin stable - Physical Exam Vitals/I&O's: Vital Signs Temp Pulse Resp BP Pulse Ox 97.9 F 54 L 12 120/66 96 04/24/20 03:17 04/24/20 03:17 04/24/20 03:04/24/20 03:04/24/20 03:17 Oxygen Flow Rate (L/min) 2 Oxygen Delivery Method Room Air Weight: 194 lb 14.218 oz Body Mass Index (BMI) 35.9 Intake and Output for Last 24 Hours 04/22/20 04/23/20 04/24/20 23:59 23:59 23:59 Intake Total 360 / 360 1000 / 1000 Balance 360 / 360 1000 / 1000 General: Alert, Oriented x3, Cooperative, No apparent distress HEENT: Atraumatic Lungs: Normal air movement Cardiovascular: Regular rate Abdomen: Soft, Non Tender, Non-Distended Laboratory Results 04/23/20 06:46: Troponin I 2.370 H* 04/23/20 13:02: Hgb 11.8 L, Hct 37.0 04/23/20 16:20: Hgb 12.1, Hct 38.0 04/23/20 17:19: POC Glucose 101 04/23/20 21:37: POC Glucose 143 H 04/23/20 22:00: Hgb 13.1, Hct 40.0 04/23/20 : COVID-19 ([facility]) Not Detected 04/24/20 00:05: Hgb 12.7, Hct 39.4 04/24/20 06:02: WBC 8.9, RBC 4.22, Hgb 11.2 L, Hct 35.1 L, MCV 83.2, MCH 26.5 L, MCHC 31.9 L, RDW Std Deviation 39.6, RDW Coeff of Ibrahima 13.3, Plt Count 254, MPV 10.6, Immature Gran % (Auto) 0.400, Neut % (Auto) 70.1 H, Lymph % (Auto) 19.4, Love % (Auto) 8.8, Eos % (Auto) 1.0, Baso % (Auto) 0.3, Absolute Neuts (auto) 6.2, Absolute Lymphs (auto) 1.73, Nucleated RBC % 0 04/24/20 06:02: Sodium 135 L, Potassium 3.7, Chloride 101, Carbon Dioxide 26.0, Anion Gap 8, BUN 10, Creatinine 0.77, Estim Creat Clear Calc 41.19, Est GFR (MDRD) Af Amer 96, Est GFR (MDRD) Non-Af 79, BUN/Creatinine Ratio 12.9, Glucose 110 H, Calcium 8.5, Phosphorus 4.3, Magnesium 1.6 Current Medications Acetaminophen (Tylenol) 650 mg PO Q6H PRN PRN PRN Reason: Pain Score 1-10/Temp > 100.7 F Last Admin: 04/24/20 02:57 Dose: 650 mg Documented by: Al Hydroxide/Mg Hydroxide (Mylanta Ii) 30 ml PO Q6H PRN PRN PRN Reason: Gastric Burning Albuterol Sulfate (Ventolin Aerosols) 2.5 mg INHALATION Q2H PRN PRN PRN Reason: SOB/Wheezing Aspirin (Ecotrin) 81 mg PO DAILY [facility] Atenolol (Tenormin (Beta Christine)) 100 mg PO DAILY [facility] Atorvastatin Calcium (Lipitor) 40 mg PO QHS [facility] Last Admin: 04/23/20 21:14 Dose: 40 mg Documented by: Dextrose (D50w Syringe) 0 gm IV X1 PRN; Protocol PRN Reason: Hypoglycemia Glucagon () 1 mg IM .X1 PRN PRN Reason: Hypoglycemia Hydrochlorothiazide () 12.5 mg PO DAILY [facility] Pantoprazole Sodium 40 mg/ (Sodium Chloride) 110 mls @ 330 mls/hr IV Q24 [facility] Lactated Ringer's () 1,000 mls @ 75 mls/hr IV .[id number] [facility] Last Admin: 04/24/20 02:51 Dose: 75 mls/hr Documented by: Lisinopril (Zestril) 20 mg PO DAILY [facility] Lorazepam (Ativan) 0.5 mg PO BID PRN PRN PRN Reason: ANXIETY Last Admin: 04/23/20 23:28 Dose: 0.5 mg Documented by: Melatonin (Melatonin) 3 mg PO QHS PRN PRN PRN Reason: INSOMNIA Morphine Sulfate () 2 mg IV Q3H PRN PRN PRN Reason: Pain Score 6-10/10 Last Admin: 04/23/20 23:30 Dose: 2 mg Documented by: Nitroglycerin (Nitrostat) 0.4 mg SUBLINGUAL Q5M PRN PRN Reason: CARDIAC/CHEST PAIN Nutritional Formula (Lactose Free) (Ensure Enlive) 120 ml PO 4X/DAY [facility] Last Admin: 04/23/20 21:10 Dose: Not Given Documented by: Ondansetron HCl (Zofran) 4 mg IV Q8H PRN PRN PRN Reason: NAUSEA/VOMITING Last Admin: 04/23/20 23:13 Dose: 4 mg Documented by: Oxycodone HCl (Oxyir) 5 mg PO Q4H PRN PRN PRN Reason: Pain Score 4-5/10 Promethazine HCl (Phenergan) 25 mg IM Q6H PRN PRN PRN Reason: Breakthrough Nausea/Vomiting Senna/Docusate Sodium (Senokot-S, Maira-Colace) 2 tablet PO BID PRN PRN PRN Reason: Constipation Sodium Chloride () 10 - 40 ml IV UD PRN PRN Reason: SALINE FLUSH Last Admin: 04/23/20 23:32 Dose: 10 ml Documented by: Ticagrelor (Brilinta) 90 mg PO BID [facility] Last Admin: 04/23/20 21:15 Dose: 90 mg Documented by: Medical Necessity - Tobacco Use Smoking Status: Former smoker Assessment/Plan All Active Problems (Last Reviewed 04/23/20 @ 10:[address] Efrain Calhoun MD) GI bleed (Acute) History of coronary artery stent placement (Resolved 04/19/20) 69-year-old female with GI bleed, EGD normal yesterday on Brilinta due to recent stent Patient is having some bright red blood per rectum does not seem like a lot, likely could be hemorrhoids as hemoglobin stable. I have discussed the above with the patient. I have offered the patient colonoscopy for evaluation this AM, did discuss with patient that if there is a larger polyp would not plan to remove at this time as she does need to stay on the Brilinta will try to move anything smaller with the snare. I have explained the risks/benefits of the procedure and described the procedure. I have discussed the risks with the patient, including but not limited to: infection, bleeding, perforation of the GI tract requiring emergency surgery, inability to complete the procedure, injury to any internal organs, complications of anesthesia, etc. - the patient understands and agrees to proceed. I have answered all the patient's questions to the patient's satisfaction and the patient has no further questions. Lily Robbins M.D. Pager: [phone] [facility] [address] [place] [address], [address] [place] [address] Office: [phone] Procedure Criteria COVID Risk Discussion: Procedure essential: Yes On 12/23/2019 the [facility] of Health ([facility]) Public Order signed by [facility] Director Carina Ohara M.D., regarding the Management of Non-Essential Surgeries and Procedures for the purpose of preserving Personal Protective Equipment (PPE) and critical hospital capacity and resources within [place] went into effect as of 12/24/2019 at 5:00PM. According to the [facility] Public Order: This action will remain in full force and effect until the State of Emergency declared by the Governor no longer exists or the Director of the [facility] rescinds or modifies this Order. This [facility] order stated all non-essential or elective surgeries and procedures that utilize PPE should be delayed unless there is undue risk to the current or future health of a patient. After reviewing the aforementioned [facility] Public Order and the patients clinical case, I have determined that the scheduled procedure meets the criteria to go forward. Reason for performing procedure: There is a risk of rapidly worsening to severe symptoms (time sensitive).
[2020-04-24 07:51] LABS: Bedside Glucose 98 mg/dL (70-110)
--- NOTE | 2020-04-24 07:54 | PCM.PN.HOSP ---
Reason for Visit: Acute lower GI bleed Subjective: Patient seen and scheduled to undergo colonoscopy Objective: GENERAL: cooperative HEENT: Atraumatic; EYES; Anicteric, Normal Conjunctiva NECK; supple, normal thyroid, RESPIRATORY: Diminished to auscultation CARDIOVASCULAR: Regular S1 S2, GI: soft, normoactive bowel sounds, : No Renal angle tenderness; EXTREMITIES: No edema, no clubbing, MUSCULOSKELETAL: no muscle waisting NEURO: Awake; no lateralizing signs. SKIN: No Rash PSYCH; Flat affect Vitals/I&O's: Vital Signs Temp Pulse Resp BP Pulse Ox 97.9 F 54 L 12 120/66 96 04/24/20 03:17 04/24/20 03:17 04/24/20 03:17 04/24/20 03:04/24/20 03:17 Oxygen Flow Rate (L/min) 2 Oxygen Delivery Method Room Air Weight: 88.4 kg Body Mass Index (BMI) 35.9 Intake and Output for Last 24 Hours 04/22/20 04/23/20 04/24/20 23:59 23:59 23:59 Intake Total 360 / 360 1000 / 1000 Balance 360 / 360 1000 / 1000 Laboratory Results 04/23/20 13:02: Hgb 11.8 L, Hct 37.0 04/23/20 16:20: Hgb 12.1, Hct 38.0 04/23/20 17:19: POC Glucose 101 04/23/20 21:37: POC Glucose 143 H 04/23/20 22:00: Hgb 13.1, Hct 40.0 04/23/20 : COVID-19 ([facility]) Not Detected 04/24/20 00:05: Hgb 12.7, Hct 39.4 04/24/20 06:02: WBC 8.9, RBC 4.22, Hgb 11.2 L, Hct 35.1 L, MCV 83.2, MCH 26.5 L, MCHC 31.9 L, RDW Std Deviation 39.6, RDW Coeff of Ibrahima 13.3, Plt Count 254, MPV 10.6, Immature Gran % (Auto) 0.400, Neut % (Auto) 70.1 H, Lymph % (Auto) 19.4, [place] % (Auto) 8.8, Eos % (Auto) 1.0, Baso % (Auto) 0.3, Absolute Neuts (auto) 6.2, Absolute Lymphs (auto) 1.73, Nucleated RBC % 0 04/24/20 06:02: Sodium 135 L, Potassium 3.7, Chloride 101, Carbon Dioxide 26.0, Anion Gap 8, BUN 10, Creatinine 0.77, Estim Creat Clear Calc 41.19, Est GFR (MDRD) Af Amer 96, Est GFR (MDRD) Non-Af 79, BUN/Creatinine Ratio 12.9, Glucose 110 H, Calcium 8.5, Phosphorus 4.3, Magnesium 1.6 04/24/20 07:48: POC Glucose 98 Current Medications Acetaminophen (Tylenol) 650 mg PO Q6H PRN PRN PRN Reason: Pain Score 1-10/Temp > 100.7 F Last Admin: 04/24/20 02:57 Dose: 650 mg Documented by: Al Hydroxide/Mg Hydroxide (Mylanta Ii) 30 ml PO Q6H PRN PRN PRN Reason: Gastric Burning Albuterol Sulfate (Ventolin Aerosols) 2.5 mg INHALATION Q2H PRN PRN PRN Reason: SOB/Wheezing Aspirin (Ecotrin) 81 mg PO DAILY [facility] Atenolol (Tenormin (Beta Christine)) 100 mg PO DAILY [facility] Atorvastatin Calcium (Lipitor) 40 mg PO QHS [facility] Last Admin: 04/23/20 21:14 Dose: 40 mg Documented by: Dextrose (D50w Syringe) 0 gm IV X1 PRN; Protocol PRN Reason: Hypoglycemia Glucagon () 1 mg IM .X1 PRN PRN Reason: Hypoglycemia Hydrochlorothiazide () 12.5 mg PO DAILY [facility] Pantoprazole Sodium 40 mg/ (Sodium Chloride) 110 mls @ 330 mls/hr IV Q24 [facility] Lactated Ringer's () 1,000 mls @ 75 mls/hr IV .[id number] [facility] Last Admin: 04/24/20 02:51 Dose: 75 mls/hr Documented by: Lisinopril (Zestril) 20 mg PO DAILY [facility] Lorazepam (Ativan) 0.5 mg PO BID PRN PRN PRN Reason: ANXIETY Last Admin: 04/23/20 23:28 Dose: 0.5 mg Documented by: Melatonin (Melatonin) 3 mg PO QHS PRN PRN PRN Reason: INSOMNIA Morphine Sulfate () 2 mg IV Q3H PRN PRN PRN Reason: Pain Score 6-10/10 Last Admin: 04/23/20 23:30 Dose: 2 mg Documented by: Nitroglycerin (Nitrostat) 0.4 mg SUBLINGUAL Q5M PRN PRN Reason: CARDIAC/CHEST PAIN Nutritional Formula (Lactose Free) (Ensure Enlive) 120 ml PO 4X/DAY [facility] Last Admin: 04/23/20 21:10 Dose: Not Given Documented by: Ondansetron HCl (Zofran) 4 mg IV Q8H PRN PRN PRN Reason: NAUSEA/VOMITING Last Admin: 04/23/20 23:13 Dose: 4 mg Documented by: Oxycodone HCl (Oxyir) 5 mg PO Q4H PRN PRN PRN Reason: Pain Score 4-5/10 Promethazine HCl (Phenergan) 25 mg IM Q6H PRN PRN PRN Reason: Breakthrough Nausea/Vomiting Senna/Docusate Sodium (Senokot-S, Maira-Colace) 2 tablet PO BID PRN PRN PRN Reason: Constipation Sodium Chloride () 10 - 40 ml IV UD PRN PRN Reason: SALINE FLUSH Last Admin: 04/23/20 23:32 Dose: 10 ml Documented by: Ticagrelor (Brilinta) 90 mg PO BID [facility] Last Admin: 04/23/20 21:15 Dose: 90 mg Documented by: Medical Necessity - Tobacco Use Smoking Status: Former smoker Assessment/Plan All Active Problems (Last Reviewed 04/23/20 @ 10:[address] Efrain Calhoun MD) GI bleed (Acute) History of coronary artery stent placement (Resolved 04/19/20) Patient is a 69-year-old lady presenting with bleeding per rectum 1. Acute GI bleed ?Patient admitted to monitored bed. Patient was started on Protonix drip, H&H ordered every 4 consultation placed to general surgery Case discussed with Dr. Fofana. Plans for patient to undergo emergency EGD and if negative patient will undergo subsequent evaluation with colonoscopy possibly prior to her discharge ?04/24/2020: Patient EGD performed the day prior did not demonstrate any evidence of bleeding patient scheduled to undergo colonoscopy. 2. Coronary artery disease with recent PCI ?Patient underwent angioplasty and stenting of the mid left anterior descending artery. 3. Hypertension - Blood pressure controlled, home medications continued with dose adjustment as needed 4. Obesity with BMI of 36.5 ?Weight loss advised 5. DVT prophylaxis ?Systemic chemoprophylaxis contraindicated in view of patient active GI bleed OBSV E&M: 57862 Subsequent observation care L3
--- NOTE | 2020-04-24 09:29 | OP.CCLET_ITS ---
04/24/2020 Efrain Gibson Do Re : Colonoscopy procedure for Courtney Deng Dear Dr. Gibson This procedure was performed on Friday, April 24, 2020. My impressions and recommendations are as follows: Impressions : - Hemorrhoids found on perianal exam--likely source of bleeding--avoid diarrhea/constipation- take stool softener if needed. - Non-bleeding internal hemorrhoids. - The entire examined colon is normal. - No specimens collected. Recommendations : - [facility] same day. - Cardiac diet. - Continue present medications. - Repeat colonoscopy in 10 years for screening purposes. My findings are described in the full procedure note, which is enclosed. If I can be of further assistance, please feel free to contact me at Doctor phone number(s): , Work: . Sincerely, MD Lily Dimas MD 04/24/2020 9:28:59 AM This report has been signed electronically.
--- NOTE | 2020-04-24 09:29 | OP.COLON_ITS ---
Patient Name: Courtney Deng Procedure Date: 04/24/2020 8:38 AM Date of : 1950 Age: 69 Procedure: Colonoscopy Indications: Hematochezia Providers: Lily Robbins MD Medicines: Monitored Anesthesia Care Patient Profile: This is a 69 year old female. Last Colonoscopy: 7 years ago. Complications: No immediate complications. Procedure: Pre-Anesthesia Assessment: - Prior to the procedure, a History and Physical was performed, and patient medications and allergies were reviewed. The patient's tolerance of previous anesthesia was also reviewed. The risks and benefits of the procedure and the sedation options and risks were discussed with the patient. All questions were answered, and informed consent was obtained. Prior Anticoagulants: The patient has taken brilinta- not stopped, last dose was 1 day prior to procedure. ASA Grade Assessment: Per anesthesia. After reviewing the risks and benefits, the patient was deemed in satisfactory condition to undergo the procedure. After I obtained informed consent, the scope was passed under direct vision. Throughout the procedure, the patient's blood pressure, pulse, and oxygen saturations were monitored continuously. The Colonoscope was introduced through the anus and advanced to the cecum, identified by the appendiceal orifice, ileocecal valve and palpation. The colonoscopy was performed without difficulty. The patient tolerated the procedure well. The quality of the bowel preparation was good. Scope In: 8:51:14 AM Scope Withdrawal Time 0 hours 7 minutes 39 seconds Scope Out: 9:06:00 AM Total Procedure Duration Time 0 hours 14 minutes 46 seconds Findings: Hemorrhoids were found on perianal exam. Non-bleeding internal hemorrhoids were found. The hemorrhoids were Grade I (internal hemorrhoids that do not prolapse). The entire examined colon appeared normal. A few small-mouthed diverticula were found in the sigmoid colon. Impression: - Hemorrhoids found on perianal exam--likely source of bleeding--avoid diarrhea/constipation- take stool softener if needed. - Non-bleeding internal hemorrhoids. - The entire examined colon is normal. - No specimens collected. Recommendation: - [facility] same day. - Cardiac diet. - Continue present medications. - Repeat colonoscopy in 10 years for screening purposes. Procedure Code(s): --- Professional --- 25716, Colonoscopy, flexible; diagnostic, including collection of specimen(s) by brushing or washing, when performed (separate procedure) Diagnosis Code(s): --- Professional --- K64.0, First degree hemorrhoids K92.1, Melena (includes Hematochezia) CPT copyright 2017 [employer]. All rights reserved. The codes documented in this report are preliminary and upon territory sales consultant review may be revised to meet current compliance requirements. MD Lily Dimas MD 04/24/2020 9:28:59 AM This report has been signed electronically. Number of Addenda: 0 Note Initiated On: 04/24/2020 8:38 AM
[2020-04-24] MEDS: Aspirin E.C. 81 MG Tablet PO (09:59)
[2020-04-24] MEDS: Lisinopril 20 MG Tablet PO (09:59)
[2020-04-24] MEDS: Atenolol 100 MG Tablet PO (10:00)
[2020-04-24] MEDS: hydroCHLOROthiazide 12.5mg 12.5 MG PO (10:00)
[2020-04-24] MEDS: TICAGRELOR 90 MG TABLET PO (10:00)
--- NOTE | 2020-04-24 10:14 | DCINST_ITS ---
You will use the following diet at home:: Cardiac Discharge Activity: Return to Normal Activity Allergies/Adverse Reactions: Allergies codeine Adverse Reaction (Verified 04/23/20 06:48) Diarrhea metformin Adverse Reaction (Verified 04/23/20 06:48) gi upset naproxen Adverse Reaction (Verified 04/23/20 06:48) Diarrhea Medications to take at Discharge aspirin 81 mg tablet,delayed release 81 mg PO DAILY 03/30/20 atenolol 100 mg tablet 100 mg PO DAILY 03/30/20 hydrochlorothiazide 12.5 mg tablet 12.5 mg PO DAILY 03/30/20 potassium gluconate 550 mg (90 mg) tablet 550 mg PO DAILY 03/30/20 quinapril 20 mg tablet 20 mg PO DAILY 03/30/20 Ticagrelor [Brilinta] 90 mg PO BID #60 tab 04/21/20 atorvastatin 40 mg tablet 40 mg PO QHS #90 tab 04/21/20 Lorazepam [Ativan] 0.5 mg PO BID PRN PRN 04/23/20 Pantoprazole Sodium 20 mg PO DAILY 04/23/20 Primary Care Physician: Efrain Gibson DO [Primary Care Provider] - Please follow up with your Primary Care Physician in: in 1-2 weeks Test Results: Test results from this visit will be discussed in further detail at your follow- up appointment, if applicable. Proposed Discharge Date: 04/24/20
--- NOTE | 2020-04-24 10:17 | DS.PCM_ITS ---
Discharge Date and Diagnosis Date of Admission: 04/23/20 Date of Discharge: 04/24/20 - Primary Discharge Diagnosis Acute Problems: Acute GI bleed secondary to hemorrhoidal bleed - Secondary Discharge Diagnosis Chronic Problems: Chronic Problems (Last Reviewed 04/23/20 @ 11:[address] Efrain Calhoun MD) History of non-ST elevation myocardial infarction (NSTEMI) (Chronic 04/20/20) Dyspnea on exertion (Chronic) Chest pain (Chronic) Atherosclerosis of coronary artery without angina pectoris (Chronic) Essential (primary) hypertension (Chronic) Hyperlipidemia (Chronic) Hospital Course and Treatment Summary of Care Provided: Patient is a 69-year-old lady presenting with bleeding per rectum 1. Acute GI bleed due to hemorrhoidal bleeding ?Patient admitted to monitored bed. Patient was started on Protonix drip, H&H ordered every 4 consultation placed to general surgery Case discussed with Dr. Fofana. Plans for patient to undergo emergency EGD and if negative patient will undergo subsequent evaluation with colonoscopy possibly prior to her discharge ?04/24/2020: Patient EGD performed on 04/23/2020 did not demonstrate any evidence of bleeding ; colonoscopy on 04/24/2020 did not demonstrate any pathology in the colon patient was found to have hemorrhoids thought to be the source of her bleeding. Patient was discharged home in stable condition. 2. Coronary artery disease with recent PCI ?Patient underwent angioplasty and stenting of the mid left anterior descending artery. -04/24/2020: Patient on recommended medications no changes were made to her home medications on discharge 3. Hypertension - Blood pressure controlled, home medications continued with dose adjustment as needed 4. Obesity with BMI of 36.5 ?Weight loss advised 5. DVT prophylaxis ?Systemic chemoprophylaxis contraindicated in view of patient active GI bleed - Physical Exam Vitals/I&O's: Vital Signs Temp Pulse Resp BP Pulse Ox 98.3 F 52 L 16 133/63 H 97 04/24/20 09:56 04/24/20 09:56 04/24/20 09:56 04/24/20 09:56 04/24/20 09:56 Oxygen Flow Rate (L/min) 2 Oxygen Delivery Method Room Air Weight: 88.4 kg Body Mass Index (BMI) 35.9 Intake and Output for Last 24 Hours 07/16/20 07/17/20 07/18/20 23:59 23:59 23:59 Intake Total 360 / 360 1000 / 1000 Balance 360 / 360 1000 / 1000 General: Alert HEENT: Atraumatic Neck: Supple Lungs: Diminished Abdomen: Non Tender Neurological: Neuro grossly intact Psych/Mental Status: Normal Affect Laboratory Results 04/23/20 13:02: Hgb 11.8 L, Hct 37.0 04/23/20 16:20: Hgb 12.1, Hct 38.0 04/23/20 17:19: POC Glucose 101 04/23/20 21:37: POC Glucose 143 H 04/23/20 22:00: Hgb 13.1, Hct 40.0 04/23/20 : COVID-19 ([facility]) Not Detected 04/24/20 00:05: Hgb 12.7, Hct 39.4 04/24/20 06:02: WBC 8.9, RBC 4.22, Hgb 11.2 L, Hct 35.1 L, MCV 83.2, MCH 26.5 L, MCHC 31.9 L, RDW Std Deviation 39.6, RDW Coeff of Ibrahima 13.3, Plt Count 254, MPV 10.6, Immature Gran % (Auto) 0.400, Neut % (Auto) 70.1 H, Lymph % (Auto) 19.4, Bennett % (Auto) 8.8, Eos % (Auto) 1.0, Baso % (Auto) 0.3, Absolute Neuts (auto) 6.2, Absolute Lymphs (auto) 1.73, Nucleated RBC % 0 04/24/20 06:02: Sodium 135 L, Potassium 3.7, Chloride 101, Carbon Dioxide 26.0, Anion Gap 8, BUN 10, Creatinine 0.77, Estim Creat Clear Calc 41.19, Est GFR (MDRD) Af Amer 96, Est GFR (MDRD) Non-Af 79, BUN/Creatinine Ratio 12.9, Glucose 110 H, Calcium 8.5, Phosphorus 4.3, Magnesium 1.6 04/24/20 07:48: POC Glucose 98 Current Medications Acetaminophen (Tylenol) 650 mg PO Q6H PRN PRN PRN Reason: Pain Score 1-10/Temp > 100.7 F Last Admin: 04/24/20 02:57 Dose: 650 mg Documented by: Al Hydroxide/Mg Hydroxide (Mylanta Ii) 30 ml PO Q6H PRN PRN PRN Reason: Gastric Burning Albuterol Sulfate (Ventolin Aerosols) 2.5 mg INHALATION Q2H PRN PRN PRN Reason: SOB/Wheezing Aspirin (Ecotrin) 81 mg PO DAILY [facility] Last Admin: 04/24/20 09:59 Dose: 81 mg Documented by: Atenolol (Tenormin (Beta Christine)) 100 mg PO DAILY [facility] Last Admin: 04/24/20 10:00 Dose: 100 mg Documented by: Atorvastatin Calcium (Lipitor) 40 mg PO QHS [facility] Last Admin: 04/23/20 21:14 Dose: 40 mg Documented by: Dextrose (D50w Syringe) 0 gm IV X1 PRN; Protocol PRN Reason: Hypoglycemia Glucagon () 1 mg IM .X1 PRN PRN Reason: Hypoglycemia Hydrochlorothiazide () 12.5 mg PO DAILY [facility] Last Admin: 04/24/20 10:00 Dose: 12.5 mg Documented by: Pantoprazole Sodium 40 mg/ (Sodium Chloride) 110 mls @ 330 mls/hr IV Q24 [facility] Lactated Ringer's () 1,000 mls @ 75 mls/hr IV .[id number] [facility] Last Admin: 04/24/20 02:51 Dose: 75 mls/hr Documented by: Lisinopril (Zestril) 20 mg PO DAILY [facility] Last Admin: 04/24/20 09:59 Dose: 20 mg Documented by: Lorazepam (Ativan) 0.5 mg PO BID PRN PRN PRN Reason: ANXIETY Last Admin: 04/23/20 23:28 Dose: 0.5 mg Documented by: Melatonin (Melatonin) 3 mg PO QHS PRN PRN PRN Reason: INSOMNIA Morphine Sulfate () 2 mg IV Q3H PRN PRN PRN Reason: Pain Score 6-10/10 Last Admin: 04/23/20 23:30 Dose: 2 mg Documented by: Nitroglycerin (Nitrostat) 0.4 mg SUBLINGUAL Q5M PRN PRN Reason: CARDIAC/CHEST PAIN Nutritional Formula (Lactose Free) (Ensure Enlive) 120 ml PO 4X/DAY [facility] Last Admin: 04/24/20 10:00 Dose: Not Given Documented by: Ondansetron HCl (Zofran) 4 mg IV Q8H PRN PRN PRN Reason: NAUSEA/VOMITING Last Admin: 04/23/20 23:13 Dose: 4 mg Documented by: Oxycodone HCl (Oxyir) 5 mg PO Q4H PRN PRN PRN Reason: Pain Score 4-5/10 Promethazine HCl (Phenergan) 25 mg IM Q6H PRN PRN PRN Reason: Breakthrough Nausea/Vomiting Senna/Docusate Sodium (Senokot-S, Maira-Colace) 2 tablet PO BID PRN PRN PRN Reason: Constipation Sodium Chloride () 10 - 40 ml IV UD PRN PRN Reason: SALINE FLUSH Last Admin: 04/23/20 23:32 Dose: 10 ml Documented by: Ticagrelor (Brilinta) 90 mg PO BID [facility] Last Admin: 04/24/20 10:00 Dose: 90 mg Documented by: Discharge Activity: Return to Normal Activity Home Medications: Medications to take at Discharge aspirin 81 mg tablet,delayed release 81 mg PO DAILY 03/30/20 atenolol 100 mg tablet 100 mg PO DAILY 03/30/20 hydrochlorothiazide 12.5 mg tablet 12.5 mg PO DAILY 03/30/20 potassium gluconate 550 mg (90 mg) tablet 550 mg PO DAILY 03/30/20 quinapril 20 mg tablet 20 mg PO DAILY 03/30/20 Ticagrelor [Brilinta] 90 mg PO BID #60 tab 04/21/20 atorvastatin 40 mg tablet 40 mg PO QHS #90 tab 04/21/20 Lorazepam [Ativan] 0.5 mg PO BID PRN PRN 04/23/20 Pantoprazole Sodium 20 mg PO DAILY 04/23/20 Primary Care Physician: Efrain Gibson DO [Primary Care Provider] - Please follow up with your Primary Care Physician in: in 1-2 weeks Disposition: Home Minutes spent on discharge:: 35 Patient Condition:: Stable Medical Necessity - Tobacco Use Smoking Status: Former smoker Meaningful Use Info Meaningful Use Diagnoses (Choose all that apply): None applicable OBSV E&M: 01729 Observation care discharge
--- NOTE | 2020-04-24 10:50 | CASEMGMT ---
MATTHEW GRIFFITH NOTE: RN CM to room to talk w/pt and review SHIELDS form. Pt sitting up in bed, eating breakfast, A/O. SHIELDS form reviewed w/pt and she denies having any questions. Form signed by pt, copy made and placed on chart, and original returned to pt. She was instructed to ask for CM if she does have any questions. Pt denies having any concerns with going home @ discharge. Danielle MARCELO RN CM
== END 2020-04-24 10:15 | disposition home or self-care (01) ==
LOC: ED 07:00 → PCU 08:41
PROVIDERS: Surgery; Admitting Provider Internal Medicine; Emergency Provider Emergency Medicine; Visit Provider Internal Medicine
PROC: 0DJ08ZZ Inspection of Upper Intestinal Tract, Via Natural or Artificial Opening Endoscopic (ICD-10-PCS; CPT 43235; principal; 2020-04-23 10:10)
PROC: 0DJD8ZZ Inspection of Lower Intestinal Tract, Via Natural or Artificial Opening Endoscopic (ICD-10-PCS; CPT 45378; principal; 2020-04-24 08:25)
DX: K64.0 First degree hemorrhoids (principal); I21.4 Non-ST elevation (NSTEMI) myocardial infarction; I25.10 Atherosclerotic heart disease of native coronary artery without angina pectoris; K92.1 Melena; I10 Essential (primary) hypertension; E78.5 Hyperlipidemia, unspecified; D68.9 Coagulation defect, unspecified; Z79.899 Other long term (current) drug therapy; Z79.82 Long term (current) use of aspirin; E66.9 Obesity, unspecified; F41.9 Anxiety disorder, unspecified; M19.90 Unspecified osteoarthritis, unspecified site; E11.9 Type 2 diabetes mellitus without complications; Z87.891 Personal history of nicotine dependence; Z68.36 Body mass index [BMI] 36.0-36.9, adult
CPT/HCPCS: 43235; 45378; 36415; 80048; 82962; 83735; 84100; 84484; 85014; 85018; 85025; 85610; 85730; 87635; 93005; 96361; 96374; 96375; 97802; 99218; 99285; G2023; J7120; A4216; G0378; J2405; U0003

== ENCOUNTER 2020-04-26 01:13 | Observation (INO) | payer MEDICARE, OTHER, SELFPAY ==
[2020-04-24 01:49] VITALS: BMI 35.9
[2020-04-26] VITALS (17 sets, daily range): BP systolic 86–129; BP diastolic 48–72; PULSE 48–73; RESP 16–20; TEMP 36.4–36.9; O2SAT 94–99; BMI 35.5; BMI 35.6
--- NOTE | 2020-04-26 01:13 | EKG12_ITS ---
Test Reason : CP Blood Pressure : / mmHG Vent. Rate : 052 BPM Atrial Rate : 052 BPM P-R Int : 166 ms QRS Dur : 080 ms QT Int : 540 ms P-R-T Axes : 006 -18 033 degrees QTc Int : 502 ms Sinus bradycardia T wave abnormality, consider anterolateral ischemia Prolonged QT Abnormal ECG Confirmed by BRENNEN SOTO, JOSE ([id number]), business editor JUSTYN PHILLIPS ([id number]) on 04/28/2020 8:52:55 AM Referred By: Andie Trejo Confirmed By:JOSE HUTTON MD
--- NOTE | 2020-04-26 01:48 | HP.PCM_ITS ---
Problem List (1) Chest pain Status: Acute Qualifiers: Ischemic chest pain type: unspecified angina pectoris type (2) Anxiety Status: Chronic (3) Diabetes mellitus, type II Status: Chronic Qualifiers: Diabetes mellitus termite control representative insulin use: without termite control representative use Diabetes mellitus complication status: with other specified complication Qualified Code(s): E11.69 - Type 2 diabetes mellitus with other specified complication (4) Obesity Status: Chronic Qualifiers: Obesity type: unspecified obesity type Obesity classification: unspecified obesity classification Serious obesity comorbidity presence: unspecified whether serious comorbidity present Qualified Code(s): E66.9 - Obesity, unspecified (5) History of coronary artery stent placement Status: Resolved Comment: Pci-SHANI-Mid LAD w/ Synergy 2.25 x 12 mm and a 2.25 x 8 mm Synergy 04/19/2020 (6) Essential (primary) hypertension Status: Chronic (7) Hyperlipidemia Status: Chronic Qualifiers: Hyperlipidemia type: unspecified Qualified Code(s): E78.5 - Hyperlipidemia, unspecified History of Present Illness Date of Admission: 04/26/20 Chief Complaint: Chest pain/burning The patient is a 69 y/o F w/ PMHx: HTN, HLD, Obesity, Diabetes mellitus type II, Former tobacco use, GERD with Hx GI bleed, Anxiety and Depression, recent 04/19/20 admission with NSTEMI with cardiac catheterization with successful PCI with SHANI of the PTCA to the LAD with GI bleed following coronary intervention suspected secondary to lower GI bleed with consultation with general surgery with both upper and lower scopes performed, discharged on 04/24/2020 with source of bleeding thought secondary to hemorrhoids with unremarkable EGD and colonoscopy otherwise with continued recommended ongoing intake of dual antiplatelet therapy who now re-presents as a direct transfer from [facility] ED on 04/26/20 with history of burning sensation from her upper chest midline also stretching across her chest bilaterally and into her epigastric region as well as into her abdomen occasionally, ongoing since a.m. day prior to ED presentation with self administration pepcid and tylenol but no improvement, worsening with nausea without emesis with no associated dyspnea or diaphoresis, rating her discomfort 4-5/10-->decreased following NG administration but she also notes that it is waxing and waning. She notes it started following her AM breakfast. Patient compares her abnormal burning sensation to the sensation you get after contrast injection. Patient last trop prior to recent [facility] discharge 2.370. Work-up at the outside ED included: VS: BP 129/59, HR 54, RR 18, T 98.6, 99% on RA CBC: WBC 8.1, Hgb 12.1, Plts 266 without shift BMP: Na 133, K 3.1, BUN/Cr 10/0.8, glucose 102 Trop: 0.43 Medications given: ASA 324 mg po x 1, NG paste 1 in placed, potassium 20 mEq given. CXR: No acute cardiopulmonary findings per report but no report in with transfer papers, disc sent to have read. EKG: SR with V1-V3 T wave abnormalities, unclear if chronic per ED given no comparison. Past Medical History Past Medical History (Chronic Problems): Chronic Problems (Last Reviewed 04/23/20 @ 11:[address] Efrain Calhoun MD) Anxiety (Chronic) Diabetes mellitus, type II (Chronic) Obesity (Chronic) History of non-ST elevation myocardial infarction (NSTEMI) (Chronic 04/20/20) Dyspnea on exertion (Chronic) Atherosclerosis of coronary artery without angina pectoris (Chronic) Essential (primary) hypertension (Chronic) Hyperlipidemia (Chronic) Medical History: Medical History (Last Reviewed 04/23/20 @ 11:[address] Efrain Calhoun MD) Atherosclerosis of coronary artery without angina pectoris (Chronic) I25.10 Essential (primary) hypertension (Chronic) I10 Hyperlipidemia (Chronic) E78.5 Anxiety F41.9 Obesity E66.9 Osteoarthritis M19.90 Type 2 diabetes mellitus E11.9 Allergies codeine Adverse Reaction (Verified 04/23/20 06:48) Diarrhea metformin Adverse Reaction (Verified 04/23/20 06:48) gi upset naproxen Adverse Reaction (Verified 04/23/20 06:48) Diarrhea Home Medications: Ambulatory Orders Medication Instructions Recorded aspirin 81 mg tablet,delayed 81 mg PO DAILY 03/30/20 release atenolol 100 mg tablet 100 mg PO DAILY 03/30/20 hydrochlorothiazide 12.5 mg tablet 12.5 mg PO DAILY 03/30/20 potassium gluconate 550 mg (90 mg) 550 mg PO DAILY 03/30/20 tablet quinapril 20 mg tablet 20 mg PO DAILY 03/30/20 Ticagrelor [Brilinta] 90 mg PO BID #60 tab 04/21/20 atorvastatin 40 mg tablet 40 mg PO QHS #90 tab 04/21/20 Pantoprazole Sodium 20 mg PO DAILY 04/23/20 Escitalopram Oxalate [Lexapro] 10 mg PO DAILY #30 tab 04/24/20 Surgical History: Surgical History (Last Reviewed 04/23/20 @ 10:[address] Efrain Calhoun MD) History of coronary artery stent placement (Resolved) Onset Date: 04/19/20 Z95.5 Pci-SHANI-Mid LAD w/ Synergy 2.25 x 12 mm and a 2.25 x 8 mm Synergy 04/19/2020 History of open reduction and internal fixation (ORIF) procedure Z98.890 left ankle History of tubal ligation Z98.51 Surgical History: - - BLTL, L ankle ORIF, PCI SHANI mid LAD. 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 Efrain Calhoun MD) Sister Myocardial infarction Cancer Sister Heart disease Myocardial infarction, Onset Age: 69 Mother Myocardial infarction, Onset Age: 63 Brother Cancer Other CAD (coronary artery disease) History Items: Heart Disease Paternal Family History: Family History (Last Reviewed 04/23/20 @ 11:[address] Efrain Calhoun MD) Sister Myocardial infarction Cancer Sister Heart disease Myocardial infarction, Onset Age: 69 Mother Myocardial infarction, Onset Age: 63 Brother Cancer Other CAD (coronary artery disease) History Items: Cancer Sibling Family History: Family History (Last Reviewed 04/23/20 @ 11:[address] Efrain Calhoun MD) Sister Myocardial infarction Cancer Sister Heart disease Myocardial infarction, Onset Age: 69 Mother Myocardial infarction, Onset Age: 63 Brother Cancer Other CAD (coronary artery disease) History Items: Cancer, Heart Disease Review of Systems Constitutional: Reports: Malaise, Weakness, Fatigue. Denies: Anorexia, Chills, Fever, Weight Change HEENT: Denies: Head Aches, Sinus Congestion, Sinus Drainage Cardiovascular: Reports: - - Chest burning sensation.. Denies: Chest Pain, Chest Pressure, Chest Tightness, Light Headedness, Orthopnea, Palpitations, Syncope Respiratory: Denies: Cough, Shortness of breath at rest, Sputum production Gastrointestinal: Reports: Abdominal Pain, Dyspepsia, Nausea. Denies: Vomiting Genitourinary: Denies: Dysuria Musculoskeletal: Reports: Joint Pain. Denies: Joint Tenderness Skin: Denies: Rash, Wounds Neurological: Denies: Numbness, Tingling, Focal weakness Psychiatric: Reports: Anxiety. Denies: Depression, Homicidal Ideations, Suicidal Ideations Hematologic/ Lymphatic: Reports: Easy Bruising, Easy Bleeding VTE Information - Inpt Only VTE Present on Admission: No VTE Mechan Device Prophylaxis: SCD's VTE Pharm Prophylaxis ordered?: No Reason prophylaxis not ordered:: Medical Contraindication Subjective: Patient seated upright in the PCU bed, no acute distress, no current chest burning sensation but she notes that is been waxing waning/intermittent. Objective: Physical Examination: General: awake, alert, oriented x 3 and cooperative, seated upright in the PCU bed, no current chest burning. Skin: normal color, turgor, no icterus, cyanosis. HEENT: AT/NC, EOMI, PERRLA, MMM, no carotid bruits or JVD noted. Lungs: CTA bilaterally, moderate effort, mild decrease BL bases, no rales, ronchi or wheezing. Heart: Regular rate and rhythm; no gallop, rub audible. Abdomen: soft, obese, mild discomfort with epigastric palpation otherwise nontender to palpation, ND, normal BS, no HSM. Extremities: no cyanosis, clubbing, or edema. Neurological: patient awake, alert, oriented x 3; cognitive function intact; pupils equally reactive to light and accomodation; cranial nerves II-XII grossly normal, moving all 4 extremities, no focal deficits, strength mildly global decrease secondary to acute complaints. Psychiatric: affect appears mildly fatigued otherwise normal, no acute evidence of depressive or anxiety feelings. - Physical Exam Vitals/I&O's: Body Mass Index (BMI) 35.9 Current Medications Acetaminophen (Tylenol) 650 mg PO Q6H PRN PRN PRN Reason: Pain Score 1-10/Temp > 100.7 F Al Hydroxide/Mg Hydroxide (Mylanta Ii) 30 ml PO Q6H PRN PRN PRN Reason: Gastric Burning Albuterol Sulfate (Ventolin Aerosols) 2.5 mg INHALATION Q2H PRN PRN PRN Reason: SOB/Wheezing Dextrose (D50w Syringe) 0 gm IV X1 PRN; Protocol PRN Reason: Hypoglycemia Glucagon () 1 mg IM .X1 PRN PRN Reason: Hypoglycemia Guaifenesin (Robitussin) 20 ml PO Q4H PRN PRN PRN Reason: COUGH Hydralazine HCl (Apresoline Iv) 10 mg IV Q4H PRN PRN PRN Reason: SBP > 160 Sodium Chloride () 1,000 mls @ 100 mls/hr IV .Q10H [facility] Insulin Human Lispro (Humalog Kwikpen (Bkc)) 0 unit SC ACHS [facility]; Protocol Magnesium Hydroxide (Milk Of Magnesia) 30 ml PO DAILY PRN PRN PRN Reason: Constipation Melatonin (Melatonin) 3 mg PO QHS PRN PRN PRN Reason: INSOMNIA Morphine Sulfate () 2 mg IV Q3H PRN PRN PRN Reason: Pain Score 6-10/10 Nitroglycerin (Nitrobid) 0.5 inch TRANSDERM. Q6 [facility] Ondansetron HCl (Zofran) 4 mg IV Q8H PRN PRN PRN Reason: NAUSEA/VOMITING Oxycodone HCl (Oxyir) 5 mg PO Q4H PRN PRN PRN Reason: Pain Score 4-5/10 Prochlorperazine Edisylate (Compazine Iv) 5 mg IV Q4H PRN PRN PRN Reason: Breakthrough Nausea/Vomiting Psyllium Hydrophilic Mucilloid (Metamucil) 1 packet PO DAILY PRN PRN PRN Reason: Constipation Senna/Docusate Sodium (Senokot-S, Maira-Colace) 2 tablet PO BID PRN PRN PRN Reason: Constipation Throat Lozenges (Cepacol Sore Throat Lozenge) 1 lozenge MUCOUS MEM Q2H PRN PRN PRN Reason: SORE THROAT Assessment/Plan All Active Problems (Last Reviewed 04/23/20 @ 10:[address] Efrain Calhoun MD) GI bleed (Acute) Chest pain (Acute) History of coronary artery stent placement (Resolved 04/19/20) The patient is a 69 y/o F w/ PMHx: HTN, HLD, Obesity, Diabetes mellitus type II, Former tobacco use, GERD with Hx GI bleed, Anxiety and Depression, recent 04/19/20 admission with NSTEMI w/ PCI and GI bleed noted to be hemorrhoidal who now re-presents as a direct transfer from [facility] ED on 04/26/20 with history of burning sensation from epigastric region downward into her chest, ongoing since 04/24/20 with self administration pepcid and tylenol but no improvement, worsening with nausea without emesis. 1. Atypical chest pain, burning: Outside ED with EKG with sinus rhythm in V1-V3 T wave abnormality, troponin improved from most recent to 0.43 from 2.370 with recent NSTEMI, will obtain hepatic profile as well as lipase as may be alternate etiology but given recent stenting although lower suspicion and atypical will maintain on PCU with continued cardiac monitoring, trend cardiac enzymes, repeat EKGs, continue nitroglycerin paste given symptomatic improvement at outside facility, request repeat cardiology involvement. If lipase elevated or abnormal LFTs would consider GB/Liver US, increased hydration with bowel regimen. OSH CXR disc being sent to radiology as no read sent from OSH ED. 2. CAD with Recent NSTEMI: Cardiac catheterization 04/19/2020 with significant disease involving the mid left anterior descending artery with small vessel tapering off a moderate disease noted in the right coronary artery with mild disease in the circumflex artery with referral for PCI following with successful PCI with SHANI of the PTCA to the LAD. We will continue aspirin, Brilinta, atorvastatin, atenolol, quinapril regimen. 3. Recent GI bleed, suspected hemorrhoidal: Recent GI bleed following PCI with dual antiplatelet therapy, upper and lower scope only remarkable for hemorrhoids with resumption of dual antiplatelet therapy following. 4. Diabetes mellitus type II: Added in history, no recent hemoglobin A1c, will obtain, in interim maintain on clear liquids given vague chest burning complaints, possibly reflux related, advance to ADA diet if appropriate, accu checks w/ ISS. 5. Hypertension: Continue home regimen including atenolol, quinapril, hydrochlorothiazide with hold parameters, PRN hydralazine. 6. Hyperlipidemia: Continue home statin regimen. 7. Obesity: Weight loss and lifestyle changes encouraged. 8. Anxiety and depression: We will continue patient home escitalopram regimen. 9. Former tobacco use: Encourage continued tobacco cessation. 10. DVT prophylaxis: SCDs, defer chemoprophylaxis given recent GI bleed history. OBSV E&M: 54701 Initial observation care L3
[2020-04-26] MEDS: 0.9% Normal Saline 1,000 ML 100 ML IV (02:31)
[2020-04-26 02:37] LABS: Absolute Lymphocyte Count 1.41 X10^3/uL (0.83-4.51); Absolute Neutrophil Count 6.2 X10^3/uL (2.0-7.7); Basophil# 0.05 X10^3/uL; Basophil% 0.6 % (0-1); Eosinophil# 0.08 X10^3/uL; Hematocrit 36.2 % (37-47); Hemoglobin 11.7 g/dL (12.0-15.0); Lymphocyte # 1.41 X10^3/ul (4.0); Lymphocyte % 16.8 % (19-41); Mean Corp Hgb Conc 32.3 g/dL (32-36); Mean Corpuscular Volume 83.4 fL (81-99); Mean Platelet Vol. 10.4 fl (6.2-12.0); Monocyte# 0.64 X10^3/uL; Monocyte% 7.6 % (0-10); NRBC Flagged by Analyzer 0 % (0-5); Neutrophil # 6.16 X10^3/uL (2.7-7.7); Neutrophil % 73.5 % (47-70); Platelet Count 264 K/mm3 (150-450); RBC Distribution Width CV 13.6 % (11.6-14.6); RBC Distribution Width SD 39.9 fl (35.1-43.9); Red Blood Count 4.34 M/mm3 (4.2-5.4); White Blood Count 8.4 K/mm3 (4.4-11.0)
[2020-04-26] MEDS: Pantoprazole Sodium 40 MG Tablet PO ×3 (02:37→21:59)
[2020-04-26 03:02] LABS: AST(SGOT) 20 U/L (15-37); Alanine Aminotransfer ALT/SGPT 26 U/L (13-56); Albumin, Serum 3.5 g/dL (3.2-5.0); Alkaline Phosphatase 60 U/L (45-117); Bilirubin, Direct 0.33 mg/dL (0.00-0.30); Globulin 3.5 g/dL (2.2-4.2); Hemoglobin A1c 6.3 % (3.8-5.6); Lipase 117 U/L (73-393); Magnesium 1.6 mg/dL (1.6-2.6)
[2020-04-26 03:30] LABS: ALB/GLOB Ratio 0.9 RATIO (0.9-2.4); AST(SGOT) 21 U/L (15-37); Alanine Aminotransfer ALT/SGPT 28 U/L (13-56); Albumin, Serum 3.4 g/dL (3.2-5.0); Alkaline Phosphatase 64 U/L (45-117); Anion Gap 10 (5-15); BUN 10 mg/dL (7-18); BUN/Creat Ratio 12.5 RATIO (10-20); Calcium,Total 8.7 mg/dL (8.5-10.1); Chloride 101 mmol/L (98-107); EST Glomerular Filtration Rate 76 mL/min (>60); Est Glom Filt Rate - Afr Amer 92 mL/min (>60); Estimated Creatinine Clearance 53.97 ml/min; Globulin 3.6 g/dL (2.2-4.2); Glucose 121 mg/dL (74-106); Potassium 3.3 mmol/L (3.5-5.1); Sodium Level 134 mmol/L (136-145)
[2020-04-26] MEDS: Nitroglycerin Oint 1 INCH PACKET 0.5 INCH TRANSDERM. (06:59)
[2020-04-26 07:20] LABS: Bedside Glucose 99 mg/dL (70-110)
--- NOTE | 2020-04-26 08:23 | CON.PCM_ITS ---
Reason for Consult Date of Consultation: 04/26/20 Reason for Consultation: Chest discomfort History of Present Illness: The patient is a 69 year old F with a history of hypertension, hyperlipidemia, borderline diabetes mellitus who had presented to [facility] with chest discomfort which she described as an ache rated at 5 out of 10 nonradiating without diaphoresis and associated lightheadedness on standing. She was not engaged in any particular activity when this was occurring. She denied any shortness of breath when lying flat. She was evaluated in the emergency room her EKG was noted to be normal her troponin was normal. An echocardiogram demonstrated preserved left ventricular systolic function and she had a minimally elevated natruretic peptide of 139. The EF was 60% with no wall motion abnormalities present. She was told after she was discharged that she probably needed to have a cardiac catheterization. She presented to see us in the office and was evaluated with a stress test which was suggestive of ischemia. She therefore underwent a cardiac catheterization on 04/19/2020 which demonstrated evidence of a small near subtotally occluded left anterior descending artery lesion in the midsegment. She underwent angioplasty and stenting of this vessel however later on during the day she developed further chest discomfort and was brought back to the lab and it was noted that the segment immediately after the stent had occluded and she had this reevaluated and restented. She had been started on Integrilin, ticagrelor, aspirin. Subsequently during the hospitalization she did develop a GI bleed with an insignificant drop in her hemoglobin. She did not require any transfusion. She however was seen by the surgeons who deferred her further work-up as it appeared that she had had an acute coronary event. She was therefore discharged and she presented back to the emergency room 2 days later with GI bleeding and needed to be admitted. She underwent an endoscopy which did not demonstrate any significant abnormalities as well as a colonoscopy which only demonstrated hemorrhoids. She was therefore discharged for outpatient follow-up still on her antiplatelet agents. She did present to an outside hospital over the weekend with epigastric burning which she says has right now settled in her left chest. It appears to be constant. There is no radiation to her arm. Her troponin after the initial catheterization and event on the was 12 and has subsequently come down to less than 0.5. She does have T wave inversions noted anteriorly and her echocardiogram post discharge initially had demonstrated evidence of an anterior apical hypokinetic zone suggestive of a non-ST elevation myocardial infarct. She has been compliant with her other medications. She has had no dizziness or diaphoresis no near syncope or syncope and has not had any arrhythmias. Due to her repeat hospitalization cardiology was reconsulted for further evaluation and management. Past Medical History Allergies/Adverse Reactions: Allergies codeine Adverse Reaction (Verified 04/23/20 06:48) Diarrhea metformin Adverse Reaction (Verified 04/23/20 06:48) gi upset naproxen Adverse Reaction (Verified 04/23/20 06:48) Diarrhea Home Medications: Ambulatory Orders Medication Instructions Recorded aspirin 81 mg tablet,delayed 81 mg PO DAILY 03/30/20 release atenolol 100 mg tablet 100 mg PO DAILY 03/30/20 hydrochlorothiazide 12.5 mg tablet 12.5 mg PO DAILY 03/30/20 potassium gluconate 550 mg (90 mg) 550 mg PO DAILY 03/30/20 tablet quinapril 20 mg tablet 20 mg PO DAILY 03/30/20 Ticagrelor [Brilinta] 90 mg PO BID #60 tab 04/21/20 atorvastatin 40 mg tablet 40 mg PO QHS #90 tab 04/21/20 Escitalopram Oxalate [Lexapro] 10 mg PO DAILY #30 tab 04/24/20 Omeprazole 20 mg PO DAILY 04/26/20 Past Medical History (Chronic Problems): Chronic Problems (Last Reviewed 04/23/20 @ 11:[address] Efrain Calhoun MD) Anxiety (Chronic) Diabetes mellitus, type II (Chronic) Obesity (Chronic) History of non-ST elevation myocardial infarction (NSTEMI) (Chronic 04/20/20) Dyspnea on exertion (Chronic) Atherosclerosis of coronary artery without angina pectoris (Chronic) Essential (primary) hypertension (Chronic) Hyperlipidemia (Chronic) Surgical History: - - BLTL, L ankle ORIF, PCI SHANI mid LAD. 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 Efrain Calhoun MD) Sister Myocardial infarction Cancer Sister Heart disease Myocardial infarction, Onset Age: 69 Mother Myocardial infarction, Onset Age: 63 Brother Cancer Other CAD (coronary artery disease) History Items: Heart Disease Paternal Family History: Family History (Last Reviewed 04/23/20 @ 11:[address] Efrain Calhoun MD) Sister Myocardial infarction Cancer Sister Heart disease Myocardial infarction, Onset Age: 69 Mother Myocardial infarction, Onset Age: 63 Brother Cancer Other CAD (coronary artery disease) History Items: Cancer Sibling Family History: Family History (Last Reviewed 04/23/20 @ 11:[address] Efrain Calhonu MD) Sister Myocardial infarction Cancer Sister Heart disease Myocardial infarction, Onset Age: 69 Mother Myocardial infarction, Onset Age: 63 Brother Cancer Other CAD (coronary artery disease) History Items: Cancer, Heart Disease Lives: Spouse/ Significant Other Smoking Status: Former smoker Tobacco Use: Non-smoker Alcohol: None Drugs: None Review of Systems - Review of Systems General: Denies: Fever, Night Sweats, Fatigue HEENT: Denies: Vision Change Cardiovascular: Reports: Chest Discomfort, Chest Discomfort with Exertion. Denies: Shortness of Breath, Orthopnea, PND, Peripheral Edema, Palpitations, Lightheadedness, Dizziness, Near Syncope, Syncope Respiratory: Denies: Cough, Sputum Production, Hemoptysis Gastrointestinal: Reports: Epigastric Discomfort, Hematochezia, Melena. Denies: Hematemesis Genitourinary: Denies: Dysuria, Hematuria Skin: Denies: Rash Psychiatric: Reports: Anxiety Endocrine: Denies: Unexplained Weight Loss Hematologic/ Lymphatic: Reports: Anemia Subjectve: Pleasant lady in no distress Objective: Vital Signs Temp Pulse Resp BP Pulse Ox 98.0 F 59 L 16 129/61 H 98 04/26/20 07:10 04/26/20 07:23 04/26/20 07:10 04/26/20 07:10 04/26/20 07:40 Oxygen Delivery Method Room Air Weight: 194 lb 7.163 oz Body Mass Index (BMI) 35.5 Intake and Output for Last 24 Hours 04/24/20 04/25/20 04/26/20 23:59 23:59 23:59 Intake Total 50 / 50 Output Total 0 / 0 Balance 50 / 50 General: Awake, Alert, Oriented x 3 HEENT: PERRL, EOMI, Sclera Non Icteric Neck: Supple, Good ROM, No Lymph Node Enlargement Lungs: Clear to auscultation Cardiovascular: Regular Rhythm, Normal S1, Normal S2, No Murmurs, No Rubs, No Gallops Vascular: No Carotid Bruits, Normal Femoral Pulses, Normal Radial Pulses, Normal Dorsalis Pedal Pulse, Normal Posterior Tibial Pulses Abdomen: Bowel Sounds Present, Soft, Non Tender, No HSM, No Organomegaly Extremities: No Cyanosis, No Clubbing, No edema Musculoskeletal: No Erythema Skin: No Rashes Lymphatic: No Lymph Node Enlargement Neurological: No Focal Motor or Sensory Deficit Psych/Mental Status: Appropriate 04/26/20 02:13: Magnesium 1.6, Total Bilirubin 1.20 H, Direct Bilirubin 0.33 H, Troponin I 0.367 H 04/26/20 02:13: WBC 8.4, RBC 4.34, Hgb 11.7 L, Hct 36.2 L, MCV 83.4, MCH 27.0, MCHC 32.3, Plt Count 264, MPV 10.4, Immature Gran % (Auto) 0.500, Neut % (Auto) 73.5 H, Lymph % (Auto) 16.8 L, Bath % (Auto) 7.6, Eos % (Auto) 1.0, Baso % (Auto) 0.6, Absolute Neuts (auto) 6.2, Nucleated RBC % 0 04/26/20 02:13: Sodium 134 L, Potassium 3.3 L, Chloride 101, Carbon Dioxide 23.0, Anion Gap 10, BUN 10, Creatinine 0.80, Est GFR (MDRD) Af Amer 92, Est GFR (MDRD) Non-Af 76, BUN/Creatinine Ratio 12.5, Glucose 121 H, Calcium 8.7, Total Bilirubin 1.20 H 04/26/20 02:13: Hemoglobin A1c 6.3 H 04/26/20 05:18: Troponin I 0.280 H Rhythm: EKG: Normal sinus rhythm with T wave inversions noted anteriorly ECHO: Low normal ejection fraction with anterior apical hypokinesis, estimated EF 45% Stress Test: Cardiac Cath: PCI: CT Surgery: Holter monitor: EPS: PPM: CXR: Chest CT Scan: Assessment/Plan 1. Chest discomfort-the above is suggestive of post infarct angina She has known coronary artery disease as evidenced above previously with recent angioplasty and stenting of the mid left anterior descending artery. * The above discomfort could be secondary to a subtotal reocclusion of the mid left anterior descending artery. At this time I will recommend that we continue to manage her with aggressive medical therapy. She is not particularly keen on going back to the [employer]. * I will discuss further with interventional cardiology as to the best approach at this time. * In the meantime we will continue the beta-carlos manuel, high intensity statin, ticagrelor, aspirin, and the addition of nitrates. * 2. Epigastric discomfort * I do not think that this is secondary to any significant GI pathology at this time as she has recently undergone an endoscopy. * Will however continue with double strength proton pump inhibitor * * 3. Hypertension * Blood pressure appears to be under good control at this particular time will continue current medical therapy. * * Thank you for allowing me to participate in the care of your patient. Please don't hesitate to call if any issues arise.
[2020-04-26] MEDS: oxyCODONE 5 MG Tablet PO (08:55)
[2020-04-26] MEDS: Escitalopram Oxalate 10 MG Tablet PO (10:20)
[2020-04-26] MEDS: Atenolol 100 MG Tablet PO (10:20)
[2020-04-26] MEDS: hydroCHLOROthiazide 12.5mg 12.5 MG PO (10:21)
[2020-04-26] MEDS: Isosorbide DN 20 MG Tablet PO ×2 (10:21→21:59)
[2020-04-26] MEDS: TICAGRELOR 90 MG TABLET PO ×2 (10:21→21:59)
[2020-04-26] MEDS: Lisinopril 20 MG Tablet PO (10:21)
[2020-04-26] MEDS: Aspirin E.C. 81 MG Tablet PO (10:21)
[2020-04-26 11:56] LABS: Bedside Glucose 114 mg/dL (70-110)
--- NOTE | 2020-04-26 13:13 | EKG12_ITS ---
Test Reason : ADMIT EKG Blood Pressure : / mmHG Vent. Rate : 055 BPM Atrial Rate : 055 BPM P-R Int : 176 ms QRS Dur : 090 ms QT Int : 534 ms P-R-T Axes : 023 -26 012 degrees QTc Int : 510 ms Sinus bradycardia T wave abnormality, consider anterior ischemia Prolonged QT Abnormal ECG Confirmed by BRENNEN SOTO, JOSE ([id number]), manuscript editor JUSTYN PHILLIPS ([id number]) on 04/28/2020 8:54:09 AM Referred By: Andie Trejo Confirmed By:JOSE HUTTON MD
--- NOTE | 2020-04-26 13:25 | PN_ITS ---
Reason for Visit: chest pain Subjective: Patient had epigastric burning and then developed chest pain thereafter. Chest pain is similar to when she has had myocardial infarction's but the epigastric burning is not. Overall better at this time. Vitals/I&O's: Vital Signs Temp Pulse Resp BP Pulse Ox 36.9 C 58 L 16 125/65 H 98 04/26/20 08:45 04/26/20 11:55 04/26/20 08:45 04/26/20 08:45 04/26/20 08:45 Oxygen Delivery Method Room Air Weight: 88.2 kg Body Mass Index (BMI) 35.5 Intake and Output for Last 24 Hours 04/24/20 04/25/20 04/26/20 23:59 23:59 23:59 Intake Total 750 / 750 Output Total 300 / 300 Balance 450 / 450 General: Alert, No apparent distress HEENT: Atraumatic, Normocephalic Oral: Moist Mucosa, No Gingival or Mucosal Lesions/ Ulcerations Neck: No Nodes, Thyroid Normal Size and Texture Lungs: Clear to auscultation, Normal air movement, No rhonchi, No wheeze Cardiovascular: Regular rate, Regular Rhythm, Normal S1, Normal S2 Abdomen: Bowel Sounds Present, Soft, Non Tender, Non-Distended, No Hepato- splenomegaly Extremities: No edema, No Calf Tenderness Skin: No rashes, No breakdown Psych/Mental Status: Normal Affect, Appropriate Laboratory Results 04/26/20 02:13: Magnesium 1.6, Total Bilirubin 1.20 H, Direct Bilirubin 0.33 H, AST 20, ALT 26, Alkaline Phosphatase 60, Troponin I 0.367 H, Total Protein 7.0, Albumin 3.5, Globulin 3.5, Lipase 117 04/26/20 02:13: WBC 8.4, RBC 4.34, Hgb 11.7 L, Hct 36.2 L, MCV 83.4, MCH 27.0, MCHC 32.3, RDW Std Deviation 39.9, RDW Coeff of Ibrahima 13.6, Plt Count 264, MPV 10.4, Immature Gran % (Auto) 0.500, Neut % (Auto) 73.5 H, Lymph % (Auto) 16.8 L, [place] % (Auto) 7.6, Eos % (Auto) 1.0, Baso % (Auto) 0.6, Absolute Neuts (auto) 6.2, Absolute Lymphs (auto) 1.41, Nucleated RBC % 0 04/26/20 02:13: Sodium 134 L, Potassium 3.3 L, Chloride 101, Carbon Dioxide 23.0, Anion Gap 10, BUN 10, Creatinine 0.80, Estim Creat Clear Calc 53.97, Est GFR (MDRD) Af Amer 92, Est GFR (MDRD) Non-Af 76, BUN/Creatinine Ratio 12.5, Glucose 121 H, Calcium 8.7, Total Bilirubin 1.20 H, AST 21, ALT 28, Alkaline Phosphatase 64, Total Protein 7.0, Albumin 3.4, Globulin 3.6, Albumin/Globulin Ratio 0.9 04/26/20 02:13: Hemoglobin A1c 6.3 H 04/26/20 05:18: Troponin I 0.280 H 04/26/20 07:08: POC Glucose 99 04/26/20 08:10: Troponin I 0.260 H 04/26/20 11:47: POC Glucose 114 H Current Medications Acetaminophen (Tylenol) 650 mg PO Q6H PRN PRN PRN Reason: Pain Score 1-10/Temp > 100.7 F Al Hydroxide/Mg Hydroxide (Mylanta Ii) 30 ml PO Q6H PRN PRN PRN Reason: Gastric Burning Albuterol Sulfate (Ventolin Aerosols) 2.5 mg INHALATION Q2H PRN PRN PRN Reason: SOB/Wheezing Aspirin (Ecotrin) 81 mg PO DAILY [facility] Last Admin: 04/26/20 10:21 Dose: 81 mg Documented by: Atenolol (Tenormin (Beta Christine)) 100 mg PO DAILY [facility] Last Admin: 04/26/20 10:20 Dose: 100 mg Documented by: Atorvastatin Calcium (Lipitor) 40 mg PO QHS [facility] Dextrose (D50w Syringe) 0 gm IV X1 PRN; Protocol PRN Reason: Hypoglycemia Escitalopram Oxalate (Lexapro) 10 mg PO DAILY [facility] Last Admin: 04/26/20 10:20 Dose: 10 mg Documented by: Glucagon () 1 mg IM .X1 PRN PRN Reason: Hypoglycemia Guaifenesin (Robitussin) 20 ml PO Q4H PRN PRN PRN Reason: COUGH Hydralazine HCl (Apresoline Iv) 10 mg IV Q4H PRN PRN PRN Reason: SBP > 160 Hydrochlorothiazide () 12.5 mg PO DAILY [facility] Last Admin: 04/26/20 10:21 Dose: 12.5 mg Documented by: Sodium Chloride () 250 mls @ 15 mls/hr IV .[id number] PRN PRN Reason: Saline Flush Sodium Chloride () 250 mls @ 15 mls/hr IV .[id number] PRN PRN Reason: Additional IVPB Infusion Sodium Chloride () 1,000 mls @ 60 mls/hr IV .[id number] [facility] Last Admin: 04/26/20 09:31 Dose: Not Given Documented by: Insulin Human Lispro (Humalog Kwikpen (Bkc)) 0 unit SC [facility]; Protocol Last Admin: 04/26/20 11:48 Dose: Not Given Documented by: Isosorbide Dinitrate (Isordil) 20 mg PO BID [facility] Last Admin: 04/26/20 10:21 Dose: 20 mg Documented by: Lisinopril (Zestril) 20 mg PO DAILY [facility] Last Admin: 04/26/20 10:21 Dose: 20 mg Documented by: Magnesium Hydroxide (Milk Of Magnesia) 30 ml PO DAILY PRN PRN PRN Reason: Constipation Melatonin (Melatonin) 3 mg PO QHS PRN PRN PRN Reason: INSOMNIA Morphine Sulfate () 2 mg IV Q3H PRN PRN PRN Reason: Pain Score 6-10/10 Ondansetron HCl (Zofran) 4 mg IV Q8H PRN PRN PRN Reason: NAUSEA/VOMITING Oxycodone HCl (Oxyir) 5 mg PO Q4H PRN PRN PRN Reason: Pain Score 4-5/10 Last Admin: 04/26/20 08:55 Dose: 5 mg Documented by: Pantoprazole Sodium (Protonix) 40 mg PO BID [facility] Last Admin: 04/26/20 10:21 Dose: 40 mg Documented by: Prochlorperazine Edisylate (Compazine Iv) 5 mg IV Q4H PRN PRN PRN Reason: Breakthrough Nausea/Vomiting Psyllium Hydrophilic Mucilloid (Metamucil) 1 packet PO DAILY PRN PRN PRN Reason: Constipation Senna/Docusate Sodium (Senokot-S, Maira-Colace) 2 tablet PO BID PRN PRN PRN Reason: Constipation Sodium Chloride () 10 - 40 ml IV UD PRN PRN Reason: SALINE FLUSH Throat Lozenges (Cepacol Sore Throat Lozenge) 1 lozenge MUCOUS MEM Q2H PRN PRN PRN Reason: SORE THROAT Ticagrelor (Brilinta) 90 mg PO BID [facility] Last Admin: 04/26/20 10:21 Dose: 90 mg Documented by: STROKE Vital Signs/Narrative: Vital Signs Pulse 04/26/20 11:55 58 L Medical Necessity - Tobacco Use Smoking Status: Former smoker Tobacco Use: Non-smoker Assessment/Plan All Active Problems (Last Reviewed 04/23/20 @ 10:[address] Efrain Calhoun MD) GI bleed (Acute) Chest pain (Acute) History of coronary artery stent placement (Resolved 04/19/20) 1. Chest pain: Seen by cardiology. Continue with medical management at this time. No imminent plans for any repeat coronary intervention at this time. Continue with ticagrelor, aspirin, high intensity statin beta-christine and nitrates. Troponins have been elevated but are trending down from the th was 2.3 at that time. 2. Epigastric burning. May be reflux. Already on PPI twice daily. Had an EGD performed on the that was normal. 3. VTE prophylaxis with SCDs. OBSV E&M: [id number] Subsequent observation care L2
[2020-04-26] MEDS: Morphine 2 MG/ML Syringe IV (13:28)
[2020-04-26] MEDS: 0.9% Saline Lock 10 ML Syringe IV (13:28)
[2020-04-26] MEDS: 0.9% Normal Saline 1,000 ML 60 ML IV (13:28)
[2020-04-26] MEDS: Ondansetron 4 MG/2 ML Vial IV (13:58)
--- NOTE | 2020-04-26 15:09 | NURSING ---
Report given to Viktoria in rd lab technician
--- NOTE | 2020-04-26 16:31 | CL.D_ITS ---
Patient Name: NEDA BROOKS Study Date: 04/26/2020 Performing: Joycelyn Weston MD Ht: 62 inches 157 cm : 1950 Wt: 198.7 lbs 90 kg Age: 69 Gender: female BSA: 1.9 PROCEDURE(S) PERFORMED FF24-[facility] CLINICAL PROFILE AND INDICATIONS Indications: Suspected CAD. CP in a patient with recent stents Heart Failure: None CONCLUSIONS CAD as described that is practically unchanged from final post PCI images on 04/19/20. Patent LAD sten ts RECOMMENDATIONS DESCRIPTION OF PROCEDURE The patient arrived to the procedure lab. The risks and benefits of the procedure as well as a full d escription of our services here and current unavailability of surgical backup were fully explained to the patient and/or their significant other prior to the catheterization. The Timeout was completed, verifying the correct patient and procedure. The patient's procedural site was prepped and draped in the usual fashion. Local anesthetic was given subcutaneously to right radial region with Lidocaine 2% . Using a modified Seldinger technique, arterial access was obtained via the right radial artery, a 6 Fr sheath was inserted. Left Coronary Artery selective angiography was performed in multiple views u sing a 5 Fr. JL3.5 catheter. Right Coronary Artery selective angiography was then performed in multip le views using a 4 Fr. JR4 catheter.The arterial sheath was pulled and a TR Band was applied for hemo stasis with 9cc of air placed in the band. CORONARY ANGIOGRAPHY DOMINANCE: Right Dominant LEFT MAIN: Mild luminal irregularities LEFT ANTERIOR DESCENDING ARTERY: Previously placed stents are patent, Mild luminal irregularities COMPLICATIONS No Complications PROCEDURE MEDICATIONS Versed 1 mg IV Oxygen: 2 L/min via nasal cannula Heparin given IA 04/26/2020 15:50:37 Potassium Chloride 40 mEq PO 04/26/2020 15:35:33 Verapamil 2.5mg, Ntg 100mcgs, 3000 units of Heparin given IA 04/26/2020 15:50:37 SUMMARY OF HEMODYNAMIC DATA Time AIR REST ECG 15:32:09 AO 81/51 (65) SA 15:53:47 Signed By Joycelyn Weston MD On 04/26/2020 16:30:27 Joycelyn Weston MD
[2020-04-26 16:41] LABS: Bedside Glucose 103 mg/dL (70-110)
[2020-04-26] MEDS: Atorvastatin Calcium 40 MG Tablet PO (21:59)
[2020-04-26 22:46] LABS: Bedside Glucose 84 mg/dL (70-110)
[2020-04-26] MEDS: Mag Hydrox/Al Hydrox/Simeth 30 ML UDC PO (23:58)
[2020-04-27] VITALS (7 sets, daily range): BP systolic 101–121; BP diastolic 55–59; PULSE 48–53; RESP 15–18; TEMP 36.5–36.7; O2SAT 95–97
[2020-04-27 06:35] LABS: Bedside Glucose 92 mg/dL (70-110)
[2020-04-27 06:46] LABS: Anion Gap 8 (5-15); BUN 9 mg/dL (7-18); BUN/Creat Ratio 11.3 RATIO (10-20); Calcium,Total 8.2 mg/dL (8.5-10.1); Chloride 103 mmol/L (98-107); EST Glomerular Filtration Rate 76 mL/min (>60); Est Glom Filt Rate - Afr Amer 92 mL/min (>60); Estimated Creatinine Clearance 53.97 ml/min; Glucose 89 mg/dL (74-106); Magnesium 1.9 mg/dL (1.6-2.6); Potassium 3.5 mmol/L (3.5-5.1); Sodium Level 135 mmol/L (136-145)
[2020-04-27] MEDS: TICAGRELOR 90 MG TABLET PO (09:47)
[2020-04-27] MEDS: Aspirin E.C. 81 MG Tablet PO (09:47)
[2020-04-27] MEDS: Isosorbide DN 20 MG Tablet PO (09:47)
[2020-04-27] MEDS: hydroCHLOROthiazide 12.5mg 12.5 MG PO (09:47)
[2020-04-27] MEDS: Escitalopram Oxalate 10 MG Tablet PO (09:48)
[2020-04-27] MEDS: Lisinopril 20 MG Tablet PO (09:48)
[2020-04-27] MEDS: Pantoprazole Sodium 40 MG Tablet PO (09:48)
[2020-04-27] MEDS: Atenolol 100 MG Tablet PO (09:48)
--- NOTE | 2020-04-27 11:09 | DCINST_ITS ---
You will use the following diet at home:: Cardiac - avoid spicy foods, caffeine, alcohol. Allergies/Adverse Reactions: Allergies codeine Adverse Reaction (Verified 04/23/20 06:48) Diarrhea metformin Adverse Reaction (Verified 04/23/20 06:48) gi upset naproxen Adverse Reaction (Verified 04/23/20 06:48) Diarrhea Medications to take at Discharge aspirin 81 mg tablet,delayed release 81 mg PO DAILY 03/30/20 atenolol 100 mg tablet 100 mg PO DAILY 03/30/20 hydrochlorothiazide 12.5 mg tablet 12.5 mg PO DAILY 03/30/20 potassium gluconate 550 mg (90 mg) tablet 550 mg PO DAILY 03/30/20 quinapril 20 mg tablet 20 mg PO DAILY 03/30/20 Ticagrelor [Brilinta] 90 mg PO BID #60 tab 04/21/20 atorvastatin 40 mg tablet 40 mg PO QHS #90 tab 04/21/20 Escitalopram Oxalate [Lexapro] 10 mg PO DAILY #30 tab 04/24/20 Omeprazole 20 mg PO DAILY 04/26/20 Magnesium Hydroxide [Milk Of Magnesia] 30 ml PO DAILY PRN PRN udc 04/27/20 Primary Care Physician: Efrain Gibson DO [Primary Care Provider] - Within 2 Weeks Test Results: Test results from this visit will be discussed in further detail at your follow- up appointment, if applicable. Please Follow Up With: Layla Thomas PA When: 04/30/2020, already scheduled. Proposed Discharge Date: 04/27/20
--- NOTE | 2020-04-27 11:12 | DS.PCM_ITS ---
Discharge Date and Diagnosis Date of Admission: 04/26/20 Date of Discharge: 04/27/20 - Primary Discharge Diagnosis Acute Problems: 1. Chest pain: * LHC showed patent stents and no new lesions. * Continue with ticagrelor, aspirin, high intensity statin beta-christine and nitrates. * Troponins have been elevated but are trending down from the 17th was 2.3 at that time. 2. Epigastric burning. May be reflux. Already on PPI twice daily. Had an EGD performed on the that was normal. - Secondary Discharge Diagnosis Chronic Problems: Chronic Problems (Last Updated 04/26/20 @ 18:09 by Antoinette Winchester) Anxiety (Chronic) Diabetes mellitus, type II (Chronic) Obesity (Chronic) History of non-ST elevation myocardial infarction (NSTEMI) (Chronic 04/20/20) Dyspnea on exertion (Chronic) Atherosclerosis of coronary artery without angina pectoris (Chronic) Essential (primary) hypertension (Chronic) Hyperlipidemia (Chronic) Hospital Course and Treatment Cordell: cardiology Operations: None Procedures: Cardiac catheterization Summary of Care Provided: The patient is a 69 year old F presents with epigastric burning as well as chest pain. Patient's not had epigastric burning associated with her cardiac symptoms but chest pain was similar. Patient's troponins were trending down overall from the 17. Patient underwent a left heart catheterization that showed patent stents and no acute lesions. Isosorbide was added to her regimen. Patient is feeling better. Epigastric burning is overall improved. Patient stated that was assisted with Mylanta. Patient will continue with PPI therapy. Patient previously did have an EGD and colonoscopy that were unremarkable. Patient be discharged home in stable condition. Patient was ambulated today and had no hypoxia nor chest pain. [] - Physical Exam Vitals/I&O's: Vital Signs Temp Pulse Resp BP Pulse Ox 36.5 C L 48 L 16 109/55 L 95 04/27/20 09:30 04/27/20 09:30 04/27/20 09:30 04/27/20 09:30 04/27/20 09:30 Oxygen Flow Rate (L/min) 2 Oxygen Delivery Method Room Air Weight: 88.2 kg Body Mass Index (BMI) 35.5 Intake and Output for Last 24 Hours 04/25/20 04/26/20 04/27/20 23:59 23:59 23:59 Intake Total 1757 / 1757 120 / 120 Output Total 300 / 300 Balance 1457 / 1457 120 / 120 General: Alert, No apparent distress HEENT: Atraumatic, Normocephalic Oral: Moist Mucosa, No Gingival or Mucosal Lesions/ Ulcerations Neck: No Nodes, Thyroid Normal Size and Texture Lungs: Clear to auscultation, Normal air movement, No rhonchi, No wheeze Cardiovascular: Regular rate, Regular Rhythm, Normal S1, Normal S2, No murmurs Abdomen: Bowel Sounds Present, Soft, Non Tender, Non-Distended Extremities: No edema, No Calf Tenderness Laboratory Results 04/26/20 11:47: POC Glucose 114 H 04/26/20 14:58: Troponin I 0.177 H 04/26/20 16:32: POC Glucose 103 04/26/20 21:57: POC Glucose 84 04/27/20 06:03: Sodium 135 L, Potassium 3.5, Chloride 103, Carbon Dioxide 24.0, Anion Gap 8, BUN 9, Creatinine 0.80, Estim Creat Clear Calc 53.97, Est GFR (MDRD) Af Amer 92, Est GFR (MDRD) Non-Af 76, BUN/Creatinine Ratio 11.3, Glucose 89, Calcium 8.2 L, Magnesium 1.9 04/27/20 06:29: POC Glucose 92 Current Medications Acetaminophen (Tylenol) 650 mg PO Q6H PRN PRN PRN Reason: Pain Score 1-10/Temp > 100.7 F Al Hydroxide/Mg Hydroxide (Mylanta Ii) 30 ml PO Q6H PRN PRN PRN Reason: Gastric Burning Last Admin: 04/26/20 23:58 Dose: 30 ml Documented by: Albuterol Sulfate (Ventolin Aerosols) 2.5 mg INHALATION Q2H PRN PRN PRN Reason: SOB/Wheezing Aspirin (Ecotrin) 81 mg PO DAILY [facility] Last Admin: 04/27/20 09:47 Dose: 81 mg Documented by: Atenolol (Tenormin (Beta Christine)) 100 mg PO DAILY [facility] Last Admin: 04/27/20 09:48 Dose: 100 mg Documented by: Atorvastatin Calcium (Lipitor) 40 mg PO QHS [facility] Last Admin: 04/26/20 21:59 Dose: 40 mg Documented by: Dextrose (D50w Syringe) 0 gm IV X1 PRN; Protocol PRN Reason: Hypoglycemia Escitalopram Oxalate (Lexapro) 10 mg PO DAILY [facility] Last Admin: 04/27/20 09:48 Dose: 10 mg Documented by: Glucagon () 1 mg IM .X1 PRN PRN Reason: Hypoglycemia Guaifenesin (Robitussin) 20 ml PO Q4H PRN PRN PRN Reason: COUGH Hydralazine HCl (Apresoline Iv) 10 mg IV Q4H PRN PRN PRN Reason: SBP > 160 Hydrochlorothiazide () 12.5 mg PO DAILY [facility] Last Admin: 04/27/20 09:47 Dose: 12.5 mg Documented by: Sodium Chloride () 250 mls @ 15 mls/hr IV .[id number] PRN PRN Reason: Saline Flush Sodium Chloride () 250 mls @ 15 mls/hr IV .[id number] PRN PRN Reason: Additional IVPB Infusion Sodium Chloride () 1,000 mls @ 15 mls/hr IV .Q48H [facility] Last Admin: 04/26/20 16:13 Dose: Not Given Documented by: Insulin Human Lispro (Humalog Kwikpen (Bkc)) 0 unit SC ACHS [facility]; Protocol Last Admin: 04/27/20 06:36 Dose: Not Given Documented by: Isosorbide Dinitrate (Isordil) 20 mg PO BID [facility] Last Admin: 04/27/20 09:47 Dose: 20 mg Documented by: Lisinopril (Zestril) 20 mg PO DAILY [facility] Last Admin: 04/27/20 09:48 Dose: 20 mg Documented by: Magnesium Hydroxide (Milk Of Magnesia) 30 ml PO DAILY PRN PRN PRN Reason: Constipation Melatonin (Melatonin) 3 mg PO QHS PRN PRN PRN Reason: INSOMNIA Morphine Sulfate () 2 mg IV Q3H PRN PRN PRN Reason: Pain Score 6-10/10 Last Admin: 04/26/20 13:28 Dose: 2 mg Documented by: Ondansetron HCl (Zofran) 4 mg IV Q8H PRN PRN PRN Reason: NAUSEA/VOMITING Last Admin: 04/26/20 13:58 Dose: 4 mg Documented by: Oxycodone HCl (Oxyir) 5 mg PO Q4H PRN PRN PRN Reason: Pain Score 4-5/10 Last Admin: 04/26/20 08:55 Dose: 5 mg Documented by: Pantoprazole Sodium (Protonix) 40 mg PO BID [facility] Last Admin: 04/27/20 09:48 Dose: 40 mg Documented by: [facility] Last Admin: 04/27/20 09:47 Dose: 20 meq Documented by: Prochlorperazine Edisylate (Compazine Iv) 5 mg IV Q4H PRN PRN PRN Reason: Breakthrough Nausea/Vomiting Psyllium Hydrophilic Mucilloid (Metamucil) 1 packet PO DAILY PRN PRN PRN Reason: Constipation Senna/Docusate Sodium (Senokot-S, Maira-Colace) 2 tablet PO BID PRN PRN PRN Reason: Constipation Sodium Chloride () 10 - 40 ml IV UD PRN PRN Reason: SALINE FLUSH Last Admin: 04/26/20 13:28 Dose: 10 ml Documented by: Throat Lozenges (Cepacol Sore Throat Lozenge) 1 lozenge MUCOUS MEM Q2H PRN PRN PRN Reason: SORE THROAT Ticagrelor (Brilinta) 90 mg PO BID [facility] Last Admin: 04/27/20 09:47 Dose: 90 mg Documented by: Discharge Diet: Low fat/ Low Cholesterol Home Medications: Medications to take at Discharge aspirin 81 mg tablet,delayed release 81 mg PO DAILY 03/30/20 atenolol 100 mg tablet 100 mg PO DAILY 03/30/20 hydrochlorothiazide 12.5 mg tablet 12.5 mg PO DAILY 03/30/20 potassium gluconate 550 mg (90 mg) tablet 550 mg PO DAILY 03/30/20 quinapril 20 mg tablet 20 mg PO DAILY 03/30/20 Ticagrelor [Brilinta] 90 mg PO BID #60 tab 04/21/20 atorvastatin 40 mg tablet 40 mg PO QHS #90 tab 04/21/20 Escitalopram Oxalate [Lexapro] 10 mg PO DAILY #30 tab 04/24/20 Omeprazole 20 mg PO DAILY 04/26/20 Isosorbide DN [Isordil] 20 mg PO BID #60 tab 04/27/20 Magnesium Hydroxide [Milk Of Magnesia] 30 ml PO DAILY PRN PRN udc 04/27/20 Following Prescrptions Were Given to Patient: Isosorbide DN [Isordil] 20 mg PO BID #60 tab Transmission Status: Pending to [id number] Primary Care Physician: Efrain Gibson DO [Primary Care Provider] - Within 2 Weeks Please Follow Up With: Layla Thomas PA When: 04/30/2020, already scheduled. Disposition: Home Minutes spent on discharge:: 25 Patient Condition:: Fair Medical Necessity - Tobacco Use Smoking Status: Former smoker Tobacco Use: Non-smoker Meaningful Use Info Meaningful Use Diagnoses (Choose all that apply): None applicable OBSV E&M: 82245 Observation care discharge
--- NOTE | 2020-04-27 11:12 | PHA.DC.MR ---
Addendum entered and electronically signed by Joanna Ford 04/27/20 11:24: PT WAS COUNSELED ON ISOSORBIDE DN 20MG PO BID. PATIENT VERBALIZED UNDERSTANDING. Original Note: Pharmacy Service has performed discharge medication reconciliation for this patient. The patient's discharge medication list was reviewed for discrepancies and discrepancies were resolved. Home Medications aspirin 81 mg tablet,delayed release 81 mg PO DAILY 03/30/20 atenolol 100 mg tablet 100 mg PO DAILY 03/30/20 hydrochlorothiazide 12.5 mg tablet 12.5 mg PO DAILY 03/30/20 potassium gluconate 550 mg (90 mg) tablet 550 mg PO DAILY 03/30/20 quinapril 20 mg tablet 20 mg PO DAILY 03/30/20 Ticagrelor [Brilinta] 90 mg PO BID #60 tab 04/21/20 atorvastatin 40 mg tablet 40 mg PO QHS #90 tab 04/21/20 Escitalopram Oxalate [Lexapro] 10 mg PO DAILY #30 tab 04/24/20 Omeprazole 20 mg PO DAILY 04/26/20 Isosorbide DN [Isordil] 20 mg PO BID #60 tab 04/27/20 Magnesium Hydroxide [Milk Of Magnesia] 30 ml PO DAILY PRN PRN udc 04/27/20
--- NOTE | 2020-04-27 12:02 | CASEMGMT ---
Intro role of CM to patient and [employer] form explained re: Observation status for treatment of chest pain. Pt states she has signed form during past admissions and understands. Explained hospitalization will be paid per? insurance policy for Outpatient billing?and condition will continue to be evaluated for Inpt necessity. Also let pt know that [facility] sends paper in the billing packet with their phone number if questions arise. Discussed Pharmacy section of [employer] form and self administered medication guideline.? Pt verbalizes understanding and does not have further questions. Form signed and placed in chart, copy to pt. LARRY RETAIL SHIFT MANAGER CM
[2020-04-27 12:10] LABS: Bedside Glucose 99 mg/dL (70-110)
== END 2020-04-27 11:09 | disposition home or self-care (01) ==
PROVIDERS: Internal Medicine Cardiovascular Disease; Admitting Provider Family Medicine; Referring Provider Family Medicine
DX: R07.89 Other chest pain (principal); F41.9 Anxiety disorder, unspecified; E11.9 Type 2 diabetes mellitus without complications; E66.9 Obesity, unspecified; Z68.35 Body mass index [BMI] 35.0-35.9, adult; E78.5 Hyperlipidemia, unspecified; I10 Essential (primary) hypertension; I25.2 Old myocardial infarction; K21.9 Gastro-esophageal reflux disease without esophagitis; F32.9 Major depressive disorder, single episode, unspecified; Z87.891 Personal history of nicotine dependence; Z79.899 Other long term (current) drug therapy; Z79.82 Long term (current) use of aspirin; I25.10 Atherosclerotic heart disease of native coronary artery without angina pectoris; M19.90 Unspecified osteoarthritis, unspecified site; Z79.02 Long term (current) use of antithrombotics/antiplatelets
CPT/HCPCS: 36415; 80048; 80053; 80076; 82962; 83036; 83690; 83735; 84484; 85025; 93005; 93454; 96361; 96374; 96375; 99152; 99153; 99218; 99251; J7030; Q9967; A4216; C1769; C1894; G0378; G0463; J2405

== ENCOUNTER → 2020-06-08 | Outpatient (CLI) | payer MEDICARE, OTHER, SELFPAY ==
[2020-05-14 08:43] VITALS: BMI 34.7
[2020-06-08 13:41] LABS: Anion Gap 6 (5-15); BUN 22 mg/dL (7-18); BUN/Creat Ratio 16.8 RATIO (10-20); Calcium,Total 8.9 mg/dL (8.5-10.1); Chloride 95 mmol/L (98-107); Creatinine, Serum 1.31 mg/dL (0.55-1.02); EST Glomerular Filtration Rate 43 mL/min (>60); Est Glom Filt Rate - Afr Amer 52 mL/min (>60); Glucose 107 mg/dL (74-106); Potassium 3.1 mmol/L (3.5-5.1); Sodium Level 131 mmol/L (136-145)
== END | disposition home or self-care (01) ==
LOC: LAB 12:58
PROVIDERS: Referring Provider Physician Assistant Medical; Visit Provider Physician Assistant Medical
DX: I25.10 Atherosclerotic heart disease of native coronary artery without angina pectoris (principal)
CPT/HCPCS: 36415; 80048

== ENCOUNTER → 2020-07-13 | Outpatient (CLI) | payer MEDICARE, OTHER, SELFPAY ==
[2020-05-14 08:43] VITALS: BMI 34.7
[2020-07-13 11:39] LABS: Anion Gap 4 (5-15); BUN 19 mg/dL (7-18); BUN/Creat Ratio 18.3 RATIO (10-20); Chloride 104 mmol/L (98-107); Creatinine, Serum 1.04 mg/dL (0.55-1.02); EST Glomerular Filtration Rate 56 mL/min (>60); Est Glom Filt Rate - Afr Amer 68 mL/min (>60); Glucose 114 mg/dL (74-106); Potassium 3.9 mmol/L (3.5-5.1); Sodium Level 136 mmol/L (136-145)
== END | disposition home or self-care (01) ==
LOC: LAB 10:54
PROVIDERS: Referring Provider Physician Assistant Medical; Visit Provider Physician Assistant Medical
DX: I10 Essential (primary) hypertension (principal); I25.10 Atherosclerotic heart disease of native coronary artery without angina pectoris; Z95.5 Presence of coronary angioplasty implant and graft
CPT/HCPCS: 36415; 80048

== ENCOUNTER 2020-09-06 11:48 | Emergency (ER) | payer MEDICARE, OTHER, SELFPAY ==
[2020-09-01 07:28] VITALS: BMI 33.6
[2020-09-06 11:51] VITALS: BP 153/81; PULSE 50; RESP 16; TEMP 36.3; O2SAT 98; BMI 32.8
[2020-09-06 11:56] VITALS: PULSE 58; RESP 19; O2SAT 988
--- NOTE | 2020-09-06 12:00 | EKG12_ITS ---
Test Reason : CP Blood Pressure : / mmHG Vent. Rate : 053 BPM Atrial Rate : 053 BPM P-R Int : 162 ms QRS Dur : 082 ms QT Int : 480 ms P-R-T Axes : 022 -17 047 degrees QTc Int : 450 ms Sinus bradycardia Otherwise normal ECG Confirmed by SEVERO SOTO, JOSE LUIS ([id number]), sound editor JUSTYN PHILLIPS ([id number]) on 09/08/2020 9:35:30 AM Referred By: Jose Luis Landa Confirmed By:JOSE LUIS LANDA MD
[2020-09-06 12:03] VITALS: O2SAT 99
--- NOTE | 2020-09-06 12:05 | RAD_ITS ---
STUDY: X-RAY CHEST REASON FOR EXAM: Female, 69 years old. CHEST PAIN TECHNIQUE: Single AP portable view of the chest. COMPARISON: None. FINDINGS: EKG electrodes are seen. The lungs are clear and expanded. There is no demonstrated pleural abnormality. Normal size heart. Normal mediastinum and edison. Normal visualized pulmonary arteries. Normal visualized aortic arch and descending thoracic aorta. There are diffuse degenerative changes of the visualized thoracic spine. There is degenerative osteoarthritis of the bilateral shoulders. There is no demonstrated abnormality of the visualized soft tissue structures of the upper abdomen. RAD/Chest 1 View (Portable) IMPRESSION: No acute abnormalities. Electronically Signed: Kevin Abraham, at 14:09 EST , Service support ,
--- NOTE | 2020-09-06 12:08 | ED.VIS.GEN ---
History of Present Illness Chief Complaint: Chest Pain Informant: Patient Narrative: 69-year-old female with history of CAD, KS, CHF, hypertension, hyperlipidemia presenting with chest pain which she states is intermittent and feels like aching. This has been ongoing for a couple of weeks although she does state she has some mild pain here and there prior to these episodes. She stated on Thanksgiving she had chest pain for about 3 hours and finally took some nitroglycerin which did help her pain. She is not had a fever, cough, shortness of breath. She states she has no history of DVT/PE. - Past Medical History (1) GI bleed Status: Chronic (2) Anxiety Status: Chronic (3) Diabetes mellitus, type II Status: Chronic (4) Essential (primary) hypertension Status: Chronic (5) History of non-ST elevation myocardial infarction (NSTEMI) Status: Chronic Past Medical History - Allergies and Home Meds Allergies/Adverse Reactions: Allergies atorvastatin Allergy (Severe, Verified 09/06/20 11:50) Other severe mylagia codeine Adverse Reaction (Verified 09/06/20 11:50) Diarrhea metformin Adverse Reaction (Verified 09/06/20 11:50) gi upset naproxen Adverse Reaction (Verified 09/06/20 11:50) Diarrhea Primary Care Physician: Efrain Gibson DO [Primary Care Provider] - Prior records reviewed: Yes Past Medical History: - - Reviewed in problem list Surgical History: - - BLTL, L ankle ORIF, PCI SHANI mid LAD. Lives: Spouse/ Significant Other Smoking Status: Former smoker Alcohol: None Drugs: None - Family History Maternal Family History: Family History (Last Reviewed 09/01/20 @ 07:32 by Fadumo Lizama) Sister Myocardial infarction Cancer Sister Heart disease Myocardial infarction, Onset Age: 69 Mother Myocardial infarction, Onset Age: 63 Brother Cancer Other CAD (coronary artery disease) Family History: Reports: Heart Disease Paternal Family History: Family History (Last Reviewed 09/01/20 @ 07:32 by Fadumo Lizama) Sister Myocardial infarction Cancer Sister Heart disease Myocardial infarction, Onset Age: 69 Mother Myocardial infarction, Onset Age: 63 Brother Cancer Other CAD (coronary artery disease) Family History: Reports: Cancer Sibling Family History: Family History (Last Reviewed 09/01/20 @ 07:32 by Fadumo Lizama) Sister Myocardial infarction Cancer Sister Heart disease Myocardial infarction, Onset Age: 69 Mother Myocardial infarction, Onset Age: 63 Brother Cancer Other CAD (coronary artery disease) Family History: Reports: Cancer, Heart Disease Review of Systems General: Denies: Chills, Fever, Sweats Eyes: Denies: Visual changes - bilaterally, Diplopia ENT: Denies: Rhinorrhea, Sore throat Cardiovascular: Reports: Chest pain. Denies: Heart racing Respiratory: Reports: Dyspnea on exertion. Denies: Cough, Sputum Gastrointestinal: Denies: Abdominal pain, Nausea, Vomiting Musculoskeletal: Denies: Myalgias, Arthralgias Skin: Denies: Rash, Abscess Neurological: Denies: Headache, Weakness, Parasthesia Physical Exam Vital Signs/Narrative: Vital Signs Temp Pulse Resp BP Pulse Ox 09/06/20 12:03 99 09/06/20 11:56 58 L 19 H 988 09/06/20 11:51 97.3 F L 50 L 16 153/81 H 98 Inital Vital Signs reviewed: Yes General: Well nourished, No Acute Distress Head: Normocephalic, Atraumatic Eyes: Perrl, EOMI. Negative for: Pale conjunctiva ENT: Moist mucous membranes, No rhinorrhea Cardiovascular: Regular rhythm, Bradycardia Respiratory: No distress, CTA bilaterally Extremities: Negative for: Tenderness Skin: Normal color, No rash. Negative for: Cyanosis Neurological: Alert, Oriented x3 Psychological: Normal affect, Normal Mood Diagnostic/Tx/Re-eval Clinical Impression(s) from Imaging Studies Chest X-Ray 09/06/20 12:05 IMPRESSION: No acute abnormalities. Electronically Signed: Kevin Abraham, at 14:09 EST , Service support , Laboratory Data 09/06/20 09/06/20 09/06/20 12:02 12:02 12:02 WBC 7.0 RBC 4.88 Hgb 13.0 Hct 42.4 MCV 86.9 MCH 26.6 L MCHC 30.7 L RDW Std Deviation 50.2 H RDW Coeff of Ibrahima 15.6 H Plt Count 331 MPV 9.8 Immature Gran % (Auto) 0.300 Neut % (Auto) 68.4 Lymph % (Auto) 21.1 Dickinson % (Auto) 7.7 Eos % (Auto) 1.6 Baso % (Auto) 0.9 Absolute Neuts (auto) 4.8 Absolute Lymphs (auto) 1.48 Nucleated RBC % 0 D-Dimer Quant (PE/DVT) 0.62 H* Sodium 138 Potassium 3.9 Chloride 105 Carbon Dioxide 28.0 Anion Gap 5 BUN 12 Creatinine 1.07 H Estim Creat Clear Calc 40.35 Est GFR (MDRD) Af Amer 66 Est GFR (MDRD) Non-Af 54 L BUN/Creatinine Ratio 11.2 Glucose 105 Calcium 9.9 Magnesium 2.2 Troponin I < 0.015 - Rhythm Strip Rhythm Strip: Sinus Rhythm Rate: 53 - EKG Initial EKG Interpretation: No Acute Injury Pattern, Sinus Bradycardia - Medical Decision Making 9-year-old female seen on arrival for chest pain which is ongoing since last Sunday. She was concerned about the duration of the pain on . She states that she has no other associated symptoms. On arrival she has sinus bradycardia. She states her heart rate is always this low. Her chest pain resolved without any treatment. Chest x-ray shows no acute process. Lab work thus far is fairly unremarkable. Troponin was negative. Age-adjusted D-dimer is negative. I attempted to obtain a 3-hour troponin and EKG and speak to her audio visual collections coordinator however she states that she cannot stay anymore because her is in the car waiting. I did skilled nursing facility counselor her on the risks of signing out AMA given her chest pain and recent NSTEMI she still is adamant about leaving. Patient is counseled she may return at any time for reevaluation. Impression: 1. Chest pain ED Disposition - Plan for ED Patient: Referrals: Efrain Gibson DO [Primary Care Provider] -
[2020-09-06 12:12] LABS: Absolute Lymphocyte Count 1.48 X10^3/uL (0.83-4.51); Absolute Neutrophil Count 4.8 X10^3/uL (2.0-7.7); Basophil# 0.06 X10^3/uL; Basophil% 0.9 % (0-1); Eosinophil# 0.11 X10^3/uL; Eosinophils% 1.6 % (0-5); Hematocrit 42.4 % (37-47); Lymphocyte # 1.48 X10^3/ul (4.0); Lymphocyte % 21.1 % (19-41); Mean Corp Hgb Conc 30.7 g/dL (32-36); Mean Corpuscular Hgb 26.6 pg (27.0-32.0); Mean Corpuscular Volume 86.9 fL (81-99); Mean Platelet Vol. 9.8 fl (6.2-12.0); Monocyte# 0.54 X10^3/uL; Monocyte% 7.7 % (0-10); NRBC Flagged by Analyzer 0 % (0-5); Neutrophil # 4.79 X10^3/uL (2.7-7.7); Neutrophil % 68.4 % (47-70); Platelet Count 331 K/mm3 (150-450); RBC Distribution Width CV 15.6 % (11.6-14.6); RBC Distribution Width SD 50.2 fl (35.1-43.9); Red Blood Count 4.88 M/mm3 (4.2-5.4)
[2020-09-06 12:33] LABS: Anion Gap 5 (5-15); BUN 12 mg/dL (7-18); BUN/Creat Ratio 11.2 RATIO (10-20); Calcium,Total 9.9 mg/dL (8.5-10.1); Chloride 105 mmol/L (98-107); Creatinine, Serum 1.07 mg/dL (0.55-1.02); EST Glomerular Filtration Rate 54 mL/min (>60); Est Glom Filt Rate - Afr Amer 66 mL/min (>60); Estimated Creatinine Clearance 40.35 ml/min; Glucose 105 mg/dL (74-106); Magnesium 2.2 mg/dL (1.6-2.6); Potassium 3.9 mmol/L (3.5-5.1); Sodium Level 138 mmol/L (136-145)
[2020-09-06 12:45] LABS: D-Dimer Quantitative (DVT/PE) 0.62 FEU/ug/m (0.27-0.49)
--- NOTE | 2020-09-06 15:05 | EKG12_ITS ---
Test Reason : REPEAT CP Blood Pressure : / mmHG Vent. Rate : 049 BPM Atrial Rate : 049 BPM P-R Int : 162 ms QRS Dur : 082 ms QT Int : 508 ms P-R-T Axes : 015 -17 037 degrees QTc Int : 458 ms Sinus bradycardia Otherwise normal ECG Confirmed by SEVERO SOTO, JOCELYN ([id number]), commercial production editor JUSTYN PHILLIPS ([id number]) on 09/08/2020 9:35:47 AM Referred By: ARELIS Confirmed By:JOCELYN ELKINS MD
--- NOTE | 2020-09-06 15:11 | ED.VISSUMM ---
- ER Visit Summary Date of Service: 09/06/20 Chief Complaint: [] History of Present Illness: The patient is a 69 F [] Physical Examination: [] Test Results: [] Emergency Department Course and Treatment: [] Treatment Plan: [] Disposition: [] Impression: [] This note was generated with [employer] dictation software. It may contain incorrect words, spelling, and punctuation that were not noted in review of the chart prior to signing ED Disposition - Plan for ED Patient: Disposition: Against Medical Advice Referrals: Efrain Gibson DO [Primary Care Provider] -
[2020-09-06 15:43] VITALS: BP 146/66; PULSE 50; RESP 18; O2SAT 99
== END 2020-09-06 15:47 | disposition left against medical advice (07) ==
PROVIDERS: Emergency Provider Student in an Organized Health Care Education/Training Program
DX: R07.9 Chest pain, unspecified (principal); I11.0 Hypertensive heart disease with heart failure; I50.9 Heart failure, unspecified; E11.9 Type 2 diabetes mellitus without complications; E78.5 Hyperlipidemia, unspecified; I25.10 Atherosclerotic heart disease of native coronary artery without angina pectoris; F41.9 Anxiety disorder, unspecified; Z79.899 Other long term (current) drug therapy; Z87.891 Personal history of nicotine dependence
CPT/HCPCS: 71045; 80048; 83735; 84484; 85025; 85379; 93005; 99284; A4216

== ENCOUNTER → 2020-09-07 14:52 | Outpatient (CLI) | payer MEDICARE, OTHER, SELFPAY ==
[2020-09-06 11:51] VITALS: BMI 32.8
--- NOTE | 2020-09-07 14:54 | CT_ITS ---
STUDY: CTA CHEST REASON FOR EXAM: Female, 69 years old. R/O PE, ELEV D-DIMER RADIATION DOSAGE (If Supplied By Facility): CTDIvol = ( 9.47 ) mGy, DLP = ( 452.96 ) mGycm TECHNIQUE: The examination was performed with the intravenous administration of IV 100mL Isovue-370. Post-processing of the angiographic images was performed, with multiplanar reformation and 3D reconstruction. Individualized dose optimization techniques were used for this CT. COMPARISON: Comparison is made with prior chest radiograph dated 09/06/2020. FINDINGS: Normal enhancement of the main pulmonary artery and right and left pulmonary arteries. Normal enhancement of the bilateral peripheral pulmonary arteries. There is no demonstrated pulmonary embolism. There is atherosclerotic calcification of the aortic arch with tortuosity. There is no demonstrated aortic dissection. There are calcifications of the coronary arteries. Normal mediastinum. Normal hilar regions. Normal visualized trachea and bronchi. The lungs are well expanded. Normal pulmonary parenchyma. Normal pleura. Normal chest wall structures. There are degenerative changes of thoracic spine. Increased kyphosis. Small sliding hernia. CT/CTA Chest W/WO Contrast IMPRESSION: Normal CTA chest examination, without a demonstrated pulmonary embolism or arterial dissection. Coronary artery calcification. Electronically Signed: Kevin Abraham, at 15:33 EST , Service support ,
== END ==
PROVIDERS: Referring Provider Internal Medicine Cardiovascular Disease; Visit Provider Internal Medicine Cardiovascular Disease
DX: R07.9 Chest pain, unspecified (principal)
CPT/HCPCS: 71275; Q9967; A4216

== ENCOUNTER → 2020-09-21 10:36 | Outpatient (CLI) | payer MEDICARE, OTHER, SELFPAY ==
[2020-09-01 07:28] VITALS: BMI 33.6
[2020-09-06 11:51] VITALS: BMI 32.8
--- NOTE | 2020-09-22 10:30 | PFT ---
INTRODUCTION: The patient is a 69-year-old female that presents for pulmonary function studies secondary to a diagnosis of dyspnea. Respiratory therapy reports good patient effort. Bronchodilators were used during testing. INTERPRETATION: Forced expiration spirometry demonstrates no evidence of a large airways obstructive ventilatory defect. There was no significant response to aerosolized bronchodilators. Spirograms are of good quality and plateau normally. The respiratory flow volume loop appears normal. Body plethysmography was performed and reveals lung volumes to be within normal limits. Diffusing capacity by single breath CO is also within normal limits. IMPRESSION: Grossly normal pulmonary function studies.
== END ==
PROVIDERS: Visit Provider Internal Medicine Critical Care Medicine
DX: R06.00 Dyspnea, unspecified (principal)
CPT/HCPCS: 94060; 94726; 94729

== ENCOUNTER → 2020-09-23 12:09 | Outpatient (CLI) | payer MEDICARE, OTHER, SELFPAY ==
[2020-09-01 07:28] VITALS: BMI 33.6
[2020-09-06 11:51] VITALS: BMI 32.8
[2020-09-23 12:55] VITALS: PULSE 53; PULSE 69; PULSE 72; PULSE 74; PULSE 75; PULSE 77; O2SAT 96; O2SAT 97; O2SAT 98
--- NOTE | 2020-09-24 14:34 | PCM.PSN.6M ---
PSN 6 Minute Walk Test - 6 Minute Walk Test 6 Minute Walk Test: 6 Minute Walk Test PSN:6-Minute Walk Test Start: 09/23/20 12:54 Freq: Status: Active Protocol: RESP.6MINW Document 09/23/20 12:55 ROBERTO (Rec: 09/23/20 12:59 MATILDEON [id number]) 6 Minute Walk Test Date Performed 09/23/20 Time Performed 12:30 Height 5 ft 2.5 in Weight: 184 lb Weight in Pounds 184.[address]: Merlin Aguilar Assistive device used: None Pre-test Oxygen Delivery Method Room Air Pulse Ox (%) 96 Pulse Rate (60-100 beats/min) 53 L Dyspnea Sobia Scale (0-10) 0 Exertion Sobia Scale (6-20) 6 1st minute Oxygen Delivery Method Room Air Pulse Ox (%) 98 Pulse Rate (60-100 beats/min) 69 2nd minute Oxygen Delivery Method Room Air Pulse Ox (%) 96 Pulse Rate (60-100 beats/min) 72 3rd minute Oxygen Delivery Method Room Air Pulse Ox (%) 98 Pulse Rate (60-100 beats/min) 74 4th minute Oxygen Delivery Method Room Air Pulse Ox (%) 97 Pulse Rate (60-100 beats/min) 74 5th minute Oxygen Delivery Method Room Air Pulse Ox (%) 97 Pulse Rate (60-100 beats/min) 75 6th minute Oxygen Delivery Method Room Air Pulse Ox (%) 97 Pulse Rate (60-100 beats/min) 77 Dyspnea Sobia Scale (0-10) 2 Exertion Sobia Scale (6-20) 11 Post-test Oxygen Delivery Method Room Air Pulse Ox (%) 97 Pulse Rate (60-100 beats/min) 53 L Full Laps Walked 20 Partial Lap, Number of Tiles Walked 55 Total Distance Walked (ft) 1235 - Interpretation Interpretation: The patient ambulated 1235 feet over the course of 6 minutes beginning on room air without assistive devices or breaks. Pretesting oxygen saturation was noted to be 96% on room air. With ambulation, the rik oxygen saturation was 97%. There was no significant exertional oxygen desaturation. - Recommendations Recommendations: There is no indication for the use of supplemental oxygen at this time.
== END ==
PROVIDERS: Referring Provider Internal Medicine Critical Care Medicine; Visit Provider Internal Medicine Critical Care Medicine
DX: R06.00 Dyspnea, unspecified (principal)
CPT/HCPCS: 94618

== ENCOUNTER 2021-03-13 08:54 | Observation (INO) | payer MEDICARE, OTHER, SELFPAY ==
[2021-03-13] VITALS (14 sets, daily range): BP systolic 137–190; BP diastolic 54–126; PULSE 56–67; RESP 12–18; TEMP 36.6; O2SAT 94–98; BMI 33.6; BMI 30.7; BMI 35.3
--- NOTE | 2021-03-13 09:03 | EKG12_ITS ---
Test Reason : CP Blood Pressure : / mmHG Vent. Rate : 064 BPM Atrial Rate : 064 BPM P-R Int : 158 ms QRS Dur : 082 ms QT Int : 460 ms P-R-T Axes : -24 -14 041 degrees QTc Int : 474 ms Normal sinus rhythm Normal ECG Confirmed by BRENNEN SOTO, JOSE ([id number]), market editor JUSTYN PHILLIPS ([id number]) on 03/15/2021 10:13:20 AM Referred By: KELLY Confirmed By:JOSE HUTTON MD
--- NOTE | 2021-03-13 09:03 | RAD_ITS ---
STUDY: X-RAY CHEST REASON FOR EXAM: Female, 70 years old. chest pain TECHNIQUE: Single AP portable view of the chest. COMPARISON: 09/06/2020 FINDINGS: The lungs are clear and expanded. There is no demonstrated pleural abnormality. Normal size heart. Normal mediastinum and edison. Normal visualized pulmonary arteries. Normal visualized aortic arch and descending thoracic aorta. Normal visualized thoracic spine. Normal visualized ribs, clavicles, and shoulders. There is no demonstrated abnormality of the visualized soft tissue structures of the upper abdomen. RAD/Chest 1 View (Portable) IMPRESSION: Normal x-ray examination of the chest. Electronically Signed: Juan M Hancock MD at 9:29 EDT Tel , Service support ,
[2021-03-13 09:16] LABS: Absolute Lymphocyte Count 1.16 X10^3/uL (0.83-4.51); Absolute Neutrophil Count 3.4 X10^3/uL (2.0-7.7); Basophil# 0.05 X10^3/uL; Basophil% 0.9 % (0-1); Eosinophil# 0.15 X10^3/uL; Eosinophils% 2.8 % (0-5); Hematocrit 45.2 % (37-47); Hemoglobin 14.4 g/dL (12.0-15.0); Lymphocyte # 1.16 X10^3/ul (0.83-4.51); Mean Corp Hgb Conc 31.9 g/dL (32-36); Mean Corpuscular Hgb 26.3 pg (27.0-32.0); Mean Corpuscular Volume 82.6 fL (81-99); Mean Platelet Vol. 9.6 fl (6.2-12.0); Monocyte# 0.54 X10^3/uL; Monocyte% 10.2 % (0-10); NRBC Flagged by Analyzer 0 % (0-5); Neutrophil # 3.36 X10^3/uL (2.7-7.7); Neutrophil % 63.7 % (47-70); Platelet Count 257 K/mm3 (150-450); RBC Distribution Width CV 13.7 % (11.6-14.6); Red Blood Count 5.47 M/mm3 (4.2-5.4); White Blood Count 5.3 K/mm3 (4.4-11.0)
[2021-03-13] MEDS: Nitroglycerin Oint 1 INCH PACKET 0.5 INCH TD ×3 (09:16→16:58)
[2021-03-13 09:21] LABS: Prothrombin Time (Protime)PT. 12.5 SECONDS (11.7-14.9)
[2021-03-13 09:27] LABS: Anion Gap 7 (5-15); BUN 17 mg/dL (7-18); BUN/Creat Ratio 16.8 RATIO (10-20); Calcium,Total 9.3 mg/dL (8.5-10.1); Chloride 101 mmol/L (98-107); Creatinine, Serum 1.01 mg/dL (0.55-1.02); EST Glomerular Filtration Rate 58 mL/min (>60); Est Glom Filt Rate - Afr Amer 70 mL/min (>60); Estimated Creatinine Clearance 49.91 ml/min; Glucose 134 mg/dL (74-106); Sodium Level 136 mmol/L (136-145)
--- NOTE | 2021-03-13 09:32 | EDS_ITS ---
HPI History of Present Illness Chief Complaint: Chest Pain Informant: patient Onset/Context/Timing Onset: Days (4) Activity at onset: gradual Timing: Intermittent Quality: Positive for Aching Location: Left Chest (Occasionally with some mild numbness in her left upper extremity) Current Severity: Gone Maximum Severity: Moderate Worsened By: Nothing; Not Worsened By Breathing Relieved By: NTG (x1 this a.m.) Associated Symptoms: Positive for Dyspnea; Negative for Nausea, Vomiting, Diaphoresis, Cough, Fever, Lightheadedness and Palpitations Narrative Narrative: Patient has a history of an MO, she had 3 stents placed last year and had similar discomfort that she is having now. This morning it returned and was persistent for 2 or 3 hours, which is longer than the episodes over the past 3 or 4 days. She took a nitroglycerin for this morning, and upon arrival to the ED, her discomfort is resolved and she feels malaised but otherwise okay. She has had some orthopnea in the last several days and that is new. She states she has a history of congestive heart failure with an ejection fraction of 45%. She has been compliant with her Brilinta and aspirin, takes no other anticoagulant medications. Her stents were about 11 months ago. No recent illness. Prior Similar Symptoms: Yes and With Prior [facility] Medical History (Updated 03/13/21 @ 09:[address] Scott Razo MD) Anxiety Atherosclerosis of coronary artery without angina pectoris Essential (primary) hypertension Hyperlipidemia Obesity Osteoarthritis Type 2 diabetes mellitus Home Medications aspirin 81 mg tablet,delayed release 81 mg PO DAILY 03/30/20 [History Last Taken 04/19/20] nitroglycerin 0.4 mg sublingual tablet 0.4 mg SUBLINGUAL Q5-15M PRN #25 tab 04/29/20 [Rx Last Taken Unknown] quinapril 5 mg tablet 5 mg PO DAILY #90 tab 08/23/20 [Rx Last Taken Unknown] atenolol 50 mg tablet 50 mg PO DAILY #90 tab 08/25/20 [Rx Last Taken Unknown] ranolazine 500 mg tablet,extended release,12 hr 500 mg PO BID #60 tab 08/30/20 [Rx Last Taken Unknown] escitalopram oxalate 10 mg PO PRN PRN 09/06/20 [History Last Taken Unknown] famotidine 10 mg PO DAILY 09/06/20 [History Last Taken Unknown] ferrous sulfate 325 mg PO TIDCM 09/06/20 [History Last Taken Unknown] potassium 99 mg PO DAILY 09/06/20 [History Last Taken Unknown] isosorbide mononitrate 60 mg tablet,extended release 24 hr 60 mg PO BID #60 tab 09/08/20 [Rx Last Taken Unknown] clopidogrel 75 mg tablet 75 mg PO DAILY #90 tab 11/25/20 [Rx Last Taken Unknown] ezetimibe 10 mg tablet 10 mg PO DAILY #30 tab 11/26/20 [Rx Last Taken Unknown] furosemide 20 mg tablet 20 mg PO DAILY #90 tab 02/01/21 [Rx Last Taken Unknown] Allergy/AdvReac Type Severity Reaction Status Date / Time atorvastatin Allergy Severe Other Verified 03/13/21 09:01 codeine AdvReac Diarrhea Verified 03/13/21 09:01 metformin AdvReac gi upset Verified 03/13/21 09:01 naproxen AdvReac Diarrhea Verified 03/13/21 09:01 Family History Sister Myocardial infarction age 53 Cancer Sister Heart disease Myocardial infarction, Onset Age: 69 Mother Myocardial infarction, Onset Age: 63 Brother Cancer Other CAD (coronary artery disease) Surgical History History of coronary artery stent placement (04/19/20) History of left heart catheterization (04/26/20) History of open reduction and internal fixation (ORIF) procedure History of tubal ligation Social History Smoking Status: Former smoker quit date: 10/08/77 pack-years: 6 Electronic Cigarette Use: not used ROS ROS ED Constitutional Constitutional ED: Denies chills or fever(s) Eyes Eyes: Denies change in vision or diplopia ENT ENT ED: Denies rhinorrhea or sore throat Cardiovascular Cardiovascular: Reports as per HPI and chest pain; Denies palpitations Respiratory/Chest Respiratory/Chest: Denies cough or dyspnea Gastrointestinal Gastrointestinal: Denies abdominal pain, diarrhea, nausea or vomiting Genitourinary Genitourinary ED: Denies dysuria or hematuria Musculoskeletal Musculoskeletal: Denies back pain or neck pain Integumentary Denies abscess or rash Neurologic Neurologic: Reports as per HPI and paresthesias LUE (Currently resolved); Denies headache(s) or weakness Psychiatric Psychiatric: Denies anxiety or suicidal thoughts EXAM Physical Exam Const Vital Signs: 03/13/21 08:58 03/13/21 09:01 03/13/21 09:04 Temperature 97.9 F Temperature Source Temporal Pulse Rate 67 Respiratory Rate 18 Respiratory Effort Normal Non-Labored Blood Pressure 190/126 H Blood Pressure Mean 147 Pulse Ox 96 Oxygen Delivery Method Room Air Room Air 03/13/21 09:16 Temperature Temperature Source Pulse Rate 64 Respiratory Rate Respiratory Effort Blood Pressure 175/54 H Blood Pressure Mean Pulse Ox Oxygen Delivery Method Positive well nourished and well developed General Appearance ED: well developed and NAD HEENT Reports moist mucous membranes normocephalic and atraumatic Eyes PERRL and EOMs intact bilaterally Neck full ROM and supple Resp normal respiratory effort and clear to auscultation bilaterally Cardio regular rate, regular rhythm and no murmurs Cardio Narrative: Equal bilateral 2+/4 radial pulses GI non-tender and non-distended Auscultation: normoactive bowel sounds Palpation: soft Back/Spine no CVA tenderness General Back: other FROM Extremity normal to inspection General Extremety ED: Negative for edema, pulses abnormal or tenderness General Extremity: Negative for edema or pulses abnormal Neuro oriented x3, CN's II-XII intact bilaterally and no sensory deficits noted Sensorium / Orientation: awake and alert Motor Exam: strength 5/5 throughout Skin no rashes or lesions noted and no wounds Heart Score History: Moderately Suspicious ECG: Normal Age: >/= 65 years Risk Factors: >/= 3 Risk Factors or History of CAD Troponin: </= Normal Limit Score: 5 MDM MDM MDM Narrative Medical decision making narrative: Patient's blood pressure was elevated at home this morning, continues to be high 190/126 even after the patient took nitroglycerin. Here nitroglycerin was placed on her chest remained pain-free, blood pressure has come down to the 170s. Given her risk and heart score, plan is for admission and further evaluation and treatment. Lab Data Attestation: I reviewed the patient's lab results. Labs: Laboratory Results - last 24 hr 03/13/21 03/13/21 03/13/21 09:00 09:00 09:00 WBC 5.3 RBC 5.47 H Hgb 14.4 Hct 45.2 MCV 82.6 MCH 26.3 L MCHC 31.9 L RDW Std Deviation 41.0 RDW Coeff of Ibrahima 13.7 Plt Count 257 MPV 9.6 Immature Gran % (Auto) 0.400 Neut % (Auto) 63.7 Lymph % (Auto) 22.0 [place] % (Auto) 10.2 H Eos % (Auto) 2.8 Baso % (Auto) 0.9 Absolute Neuts (auto) 3.4 Absolute Lymphs (auto) 1.16 Nucleated RBC % 0 PT 12.5 INR 1.0 Sodium 136 Potassium 4.0 Chloride 101 Carbon Dioxide 28.0 Anion Gap 7 BUN 17 Creatinine 1.01 Estim Creat Clear Calc 49.91 Est GFR (MDRD) Af Amer 70 Est GFR (MDRD) Non-Af 58 L BUN/Creatinine Ratio 16.8 Glucose 134 H Calcium 9.3 Troponin I < 0.015 Radiography Chest X-Ray - ED: 1 View, Read by ED Physician and No Acute Disease Diagnostic Testing: Radiology Impression Chest X-Ray 03/13/21 09:03 IMPRESSION: Normal x-ray examination of the chest. Electronically Signed: Juan M Hancock MD at 9:29 EDT Tel , Service support , EKG Initial EKG: Attestation: I personally reviewed and interpreted this EKG as follows: Interpretation: Sinus Rhythm and No Acute Injury Pattern Prior EKG tracings: available for review Prior: Unchanged Discharge Plan Dx/Rx/DC Orders Clinical Impression: Chest pain, CAD (coronary artery disease) Disposition Disposition: Acute Care Hospital [facility]
--- NOTE | 2021-03-13 09:55 | NURSING ---
DR BLACKWELL FOR DR YOU
--- NOTE | 2021-03-13 10:03 | HP.PCM.HOS_ITS ---
Documented by User: Fadumo Brown NP, CASE FINISHER-C 03/13/21 10:15 HPI - General General Date of Admission: 03/13/21 Chief Complaint: Chest pain. HPI Narrative NEDA BROOKS, is a 70 F who presents who presents to the emergency room due to chest pain. Patient states her symptoms began about 4 days ago and have been intermittent since that time. Over the past 4 days she has had brief episodes of left-sided chest discomfort which have self resolved. She denies worsening chest pain with exertion. States she mowed her yard yesterday without any chest discomfort. However, this morning upon awakening she had persistent chest discomfort which lasted longer than prior episodes. She took a nitro which improved her symptoms. She states her left-sided chest pain does feel similar to prior stents she had in April 2020. She denies shortness of breath, nausea, diaphoresis or other associated symptoms. She has a past medical history of CAD, type 2 diabetes mellitus, hypertension, hyperlipidemia, obesity, anxiety, depression. [facility] Medical History (Updated 03/13/21 @ 09:[address] Scott Razo MD) Anxiety Atherosclerosis of coronary artery without angina pectoris Essential (primary) hypertension Hyperlipidemia Obesity Osteoarthritis Type 2 diabetes mellitus Home Medications aspirin 81 mg tablet,delayed release 81 mg PO DAILY 03/30/20 [History Last Taken 04/19/20] nitroglycerin 0.4 mg sublingual tablet 0.4 mg SUBLINGUAL Q5-15M PRN #25 tab 04/29/20 [Rx Last Taken Unknown] quinapril 5 mg tablet 5 mg PO DAILY #90 tab 08/23/20 [Rx Last Taken Unknown] atenolol 50 mg tablet 50 mg PO DAILY #90 tab 08/25/20 [Rx Last Taken Unknown] ranolazine 500 mg tablet,extended release,12 hr 500 mg PO BID #60 tab 08/30/20 [Rx Last Taken Unknown] escitalopram oxalate 10 mg PO PRN PRN 09/06/20 [History Last Taken Unknown] famotidine 10 mg PO DAILY 09/06/20 [History Last Taken Unknown] ferrous sulfate 325 mg PO TIDCM 09/06/20 [History Last Taken Unknown] potassium 99 mg PO DAILY 09/06/20 [History Last Taken Unknown] isosorbide mononitrate 60 mg tablet,extended release 24 hr 60 mg PO BID #60 tab 09/08/20 [Rx Last Taken Unknown] clopidogrel 75 mg tablet 75 mg PO DAILY #90 tab 11/25/20 [Rx Last Taken Unknown] ezetimibe 10 mg tablet 10 mg PO DAILY #30 tab 11/26/20 [Rx Last Taken Unknown] furosemide 20 mg tablet 20 mg PO DAILY #90 tab 02/01/21 [Rx Last Taken Unknown] Allergy/AdvReac Type Severity Reaction Status Date / Time atorvastatin Allergy Severe Other Verified 03/13/21 09:01 codeine AdvReac Diarrhea Verified 03/13/21 09:01 metformin AdvReac gi upset Verified 03/13/21 09:01 naproxen AdvReac Diarrhea Verified 03/13/21 09:01 Family History Sister Myocardial infarction age 53 Cancer Sister Heart disease Myocardial infarction, Onset Age: 69 Mother Myocardial infarction, Onset Age: 63 Brother Cancer Other CAD (coronary artery disease) Surgical History History of coronary artery stent placement (04/19/20) History of left heart catheterization (04/26/20) History of open reduction and internal fixation (ORIF) procedure History of tubal ligation Social History Smoking Status: Former smoker quit date: 10/08/77 pack-years: 6 Electronic Cigarette Use: not used ROS Constitutional Constitutional: Denies change in weight, chills, fatigue, fever(s) or weakness Cardiovascular Cardiovascular: Reports chest pain; Denies edema, lightheadedness, palpitations or syncope Respiratory/Chest Respiratory/Chest: Denies cough, dyspnea, productive cough, shortness of breath at rest, shortness of breath with exertion or wheezing Gastrointestinal Gastrointestinal: Denies abdominal pain, constipation, diarrhea, nausea or vomiting Genitourinary Genitourinary: Denies burning urination, difficulty urinating, dysuria, hematuria, urinary frequency, urinary incontinence or urinary urgency Musculoskeletal Musculoskeletal: Denies back pain, joint pain or muscle weakness Integumentary Integumentary: Reports systems reviewed and no addt'l complaints, except as documented Neurologic Neurologic: Denies abnormal speech, confusion, dizziness, focal weakness, numbness, paresthesias, seizure-like activity or syncope Psychiatric Psychiatric: Denies anxiety or depression Hematologic/Lymphatic Hematologic/Lymphatic: Denies anemia, easy bleeding or easy bruising Allergic/Immunologic Allergic/Immunologic: Denies hives or asthma Vital Signs Vital Signs Vital Signs: 03/13/21 08:58 03/13/21 09:01 03/13/21 09:04 Temperature 97.9 F Temperature Source Temporal Pulse Rate 67 Respiratory Rate 18 Respiratory Effort Normal Non-Labored Blood Pressure 190/126 H Blood Pressure Mean 147 Pulse Ox 96 Oxygen Delivery Method Room Air Room Air 03/13/21 09:16 Temperature Temperature Source Pulse Rate 64 Respiratory Rate Respiratory Effort Blood Pressure 175/54 H Blood Pressure Mean Pulse Ox Oxygen Delivery Method Weight Weight: 190 lb Body Mass Index (BMI) 30.7 Physical Exam Const alert, oriented x3 and no apparent distress Orientation / Consciousness: awake, oriented to person, oriented to place and oriented to time HEENT normocephalic and moist oral mucous membranes Eyes PERRL, EOMs intact bilaterally and conjunctivae normal Neck no lymphadenopathy Resp normal respiratory effort and clear to auscultation bilaterally Cardio regular rate, regular rhythm and no murmurs Peripheral Pulses: pulses 2+ throughout GI normal to inspection, nondistended, normoactive bowel sounds, non-tender and non-distended Extremity normal to inspection Skin no rashes or lesions noted Lesions: no lesions Rashes: no rashes Trauma: no lacerations or abrasions Neuro CN's II-XII intact bilaterally, no focal motor deficits, no sensory deficits noted and deep tendon reflexes 2+ bilaterally Psych mental status grossly normal and affect normal Results Lab / Micro Data Result Diagrams: 03/13/21 09:00 03/13/21 09:00 Labs: Laboratory Results - last 24 hr 03/13/21 03/13/21 03/13/21 09:00 09:00 09:00 WBC 5.3 RBC 5.47 H Hgb 14.4 Hct 45.2 MCV 82.6 MCH 26.3 L MCHC 31.9 L RDW Std Deviation 41.0 RDW Coeff of Ibrahima 13.7 Plt Count 257 MPV 9.6 Immature Gran % (Auto) 0.400 Neut % (Auto) 63.7 Lymph % (Auto) 22.0 [place] % (Auto) 10.2 H Eos % (Auto) 2.8 Baso % (Auto) 0.9 Absolute Neuts (auto) 3.4 Absolute Lymphs (auto) 1.16 Nucleated RBC % 0 PT 12.5 INR 1.0 Sodium 136 Potassium 4.0 Chloride 101 Carbon Dioxide 28.0 Anion Gap 7 BUN 17 Creatinine 1.01 Estim Creat Clear Calc 49.91 Est GFR (MDRD) Af Amer 70 Est GFR (MDRD) Non-Af 58 L BUN/Creatinine Ratio 16.8 Glucose 134 H Calcium 9.3 Troponin I < 0.015 Radiology Impression Chest X-Ray 03/13/21 09:03 IMPRESSION: Normal x-ray examination of the chest. Electronically Signed: Juan M Hancock MD at 9:29 EDT Tel , Service support , Assessment & Plan Assessment/Plan (1) Chest pain: PLAN: 1. CAD with history of stents- follows with Dr. Landa. Previous stents times 09 April 2020. Initial troponin negative. EKG without ST-T changes. Trend enzymes. Repeat EKG in a.m. Plan for stress test in a.m. If stress test returns abnormal, plan for cardiology consultation. Continue aspirin, statin, isosorbide, atenolol, Ranexa. 2. Type 2 diabetes rashlzel-[id number] with sliding scale insulin. Repeat hemoglobin A1c pending. 3. Hypertension-stable, continue atenolol, Lasix, isosorbide, quinapril, Ranexa. 4. Hyperlipidemia-continue statin. 5. Obesity-encouraged diet and lifestyle modifications. 6. Anxiety/depression-on escitalopram. DVT prophylaxis- Lovenox sc This patient was seen by MARTINA Mcelroy under the supervision of Dr. Trejo. Documented by User: Dr. Andie Trejo MD 03/13/21 10:19 HPI - General General Date of Admission: 03/13/21 [facility] Medical History (Updated 03/13/21 @ 09:[address] Scott Razo MD) Anxiety Atherosclerosis of coronary artery without angina pectoris Essential (primary) hypertension Hyperlipidemia Obesity Osteoarthritis Type 2 diabetes mellitus Home Medications aspirin 81 mg tablet,delayed release 81 mg PO DAILY 03/30/20 [History Last Taken 04/19/20] nitroglycerin 0.4 mg sublingual tablet 0.4 mg SUBLINGUAL Q5-15M PRN #25 tab 04/29/20 [Rx Last Taken Unknown] quinapril 5 mg tablet 5 mg PO DAILY #90 tab 08/23/20 [Rx Last Taken Unknown] atenolol 50 mg tablet 50 mg PO DAILY #90 tab 08/25/20 [Rx Last Taken Unknown] ranolazine 500 mg tablet,extended release,12 hr 500 mg PO BID #60 tab 08/30/20 [Rx Last Taken Unknown] escitalopram oxalate 10 mg PO PRN PRN 09/06/20 [History Last Taken Unknown] famotidine 10 mg PO DAILY 09/06/20 [History Last Taken Unknown] ferrous sulfate 325 mg PO TIDCM 09/06/20 [History Last Taken Unknown] potassium 99 mg PO DAILY 09/06/20 [History Last Taken Unknown] isosorbide mononitrate 60 mg tablet,extended release 24 hr 60 mg PO BID #60 tab 09/08/20 [Rx Last Taken Unknown] clopidogrel 75 mg tablet 75 mg PO DAILY #90 tab 11/25/20 [Rx Last Taken Unknown] ezetimibe 10 mg tablet 10 mg PO DAILY #30 tab 11/26/20 [Rx Last Taken Unknown] furosemide 20 mg tablet 20 mg PO DAILY #90 tab 02/01/21 [Rx Last Taken Unknown] Allergy/AdvReac Type Severity Reaction Status Date / Time atorvastatin Allergy Severe Other Verified 03/13/21 09:01 codeine AdvReac Diarrhea Verified 03/13/21 09:01 metformin AdvReac gi upset Verified 03/13/21 09:01 naproxen AdvReac Diarrhea Verified 03/13/21 09:01 Family History Sister Myocardial infarction age 53 Cancer Sister Heart disease Myocardial infarction, Onset Age: 69 Mother Myocardial infarction, Onset Age: 63 Brother Cancer Other CAD (coronary artery disease) Surgical History History of coronary artery stent placement (04/19/20) History of left heart catheterization (04/26/20) History of open reduction and internal fixation (ORIF) procedure History of tubal ligation Social History Smoking Status: Former smoker quit date: 10/08/77 pack-years: 6 Electronic Cigarette Use: not used Results Lab / Micro Data Result Diagrams: 03/13/21 09:00 03/13/21 09:00
[2021-03-13 10:14] LABS: Magnesium 1.9 mg/dL (1.6-2.6)
--- NOTE | 2021-03-13 10:24 | EKG12_ITS ---
Test Reason : CP Blood Pressure : / mmHG Vent. Rate : 059 BPM Atrial Rate : 059 BPM P-R Int : 164 ms QRS Dur : 082 ms QT Int : 484 ms P-R-T Axes : 028 -19 044 degrees QTc Int : 479 ms Sinus bradycardia Otherwise normal ECG Confirmed by BRENNEN SOTO, JOSE ([id number]), editor managing newspaper JUSTYN PHILLIPS ([id number]) on 03/15/2021 10:44:01 AM Referred By: DR BLACKWELL Confirmed By:JOSE HUTTON MD
[2021-03-13 10:53] LABS: Hemoglobin A1c 6.2 % (3.8-5.6)
[2021-03-13] MEDS: Ferrous Sulfate 325 MG Tablet PO ×2 (11:58→16:58)
[2021-03-13] MEDS: Furosemide 20 MG Tablet PO (11:58)
[2021-03-13] MEDS: Enoxaparin 40 MG/0.4 ML Syringe SC (11:58)
[2021-03-13 12:30] LABS: Bedside Glucose 119 mg/dL (70-110)
[2021-03-13 17:25] LABS: Bedside Glucose 104 mg/dL (70-110)
[2021-03-13] MEDS: MELATONIN 10 MG TABLET PO (21:43)
[2021-03-13] MEDS: Ranolazine 500 MG Tablet PO (21:43)
[2021-03-13 21:55] LABS: Bedside Glucose 130 mg/dL (70-110)
[2021-03-14] VITALS (7 sets, daily range): BP systolic 141–161; BP diastolic 61–82; PULSE 58–66; RESP 15–16; TEMP 36.2–36.5; O2SAT 94–98
[2021-03-14] MEDS: Mag Hydrox/Al Hydrox/Simeth 30 ML UDC PO (03:06)
--- NOTE | 2021-03-14 05:55 | EKG12_ITS ---
Test Reason : CHEST PAIN Blood Pressure : / mmHG Vent. Rate : 058 BPM Atrial Rate : 058 BPM P-R Int : 168 ms QRS Dur : 082 ms QT Int : 484 ms P-R-T Axes : 010 -16 043 degrees QTc Int : 475 ms Sinus bradycardia Otherwise normal ECG Confirmed by BRENNEN SOTO, JOSE ([id number]), offline editor JUSTYN PHILLIPS ([id number]) on 03/16/2021 9:12:57 AM Referred By: RISHI Confirmed By:JOSE HUTTON MD
[2021-03-14] MEDS: Famotidine 20 MG Tablet 10 MG PO (05:59)
[2021-03-14] MEDS: Aspirin E.C. 81 MG Tablet PO (06:00)
[2021-03-14] MEDS: Ranolazine 500 MG Tablet PO (06:00)
[2021-03-14] MEDS: Lisinopril 5 MG Tablet PO (06:00)
[2021-03-14] MEDS: Clopidogrel Bisulfate 75 MG Tablet PO (06:00)
[2021-03-14 06:30] LABS: Absolute Lymphocyte Count 1.49 X10^3/uL (0.83-4.51); Absolute Neutrophil Count 3.5 X10^3/uL (2.0-7.7); Basophil# 0.05 X10^3/uL; Basophil% 0.9 % (0-1); Eosinophil# 0.11 X10^3/uL; Hematocrit 45.2 % (37-47); Hemoglobin 14.1 g/dL (12.0-15.0); Lymphocyte # 1.49 X10^3/ul (0.83-4.51); Lymphocyte % 26.4 % (19-41); Mean Corp Hgb Conc 31.2 g/dL (32-36); Mean Corpuscular Hgb 25.9 pg (27.0-32.0); Mean Corpuscular Volume 83.1 fL (81-99); Mean Platelet Vol. 9.6 fl (6.2-12.0); Monocyte# 0.51 X10^3/uL; NRBC Flagged by Analyzer 0 % (0-5); Neutrophil # 3.47 X10^3/uL (2.7-7.7); Neutrophil % 61.5 % (47-70); Platelet Count 247 K/mm3 (150-450); RBC Distribution Width CV 13.8 % (11.6-14.6); RBC Distribution Width SD 41.7 fl (35.1-43.9); Red Blood Count 5.44 M/mm3 (4.2-5.4); White Blood Count 5.6 K/mm3 (4.4-11.0)
[2021-03-14 06:46] LABS: Bedside Glucose 138 mg/dL (70-110)
[2021-03-14 06:56] LABS: ALB/GLOB Ratio 0.9 RATIO (0.9-2.4); AST(SGOT) 14 U/L (15-37); Alanine Aminotransfer ALT/SGPT 18 U/L (13-56); Albumin, Serum 3.3 g/dL (3.2-5.0); Alkaline Phosphatase 78 U/L (45-117); Anion Gap 6 (5-15); BUN 14 mg/dL (7-18); BUN/Creat Ratio 13.9 RATIO (10-20); Calcium,Total 9.3 mg/dL (8.5-10.1); Chloride 100 mmol/L (98-107); Cholesterol 187 mg/dL (200); Creatinine, Serum 1.01 mg/dL (0.55-1.02); EST Glomerular Filtration Rate 58 mL/min (>60); Est Glom Filt Rate - Afr Amer 70 mL/min (>60); Estimated Creatinine Clearance 42.16 ml/min; Globulin 3.7 g/dL (2.2-4.2); Glucose 143 mg/dL (74-106); High Density Lipoprotein 58 mg/dL; Potassium 3.9 mmol/L (3.5-5.1); Sodium Level 135 mmol/L (136-145); Triglycerides 179 mg/dL; Very Low Density Lipoprotein 36 mg/dL (5-40)
[2021-03-14] MEDS: Furosemide 20 MG Tablet PO (10:28)
[2021-03-14] MEDS: Atenolol 50 MG Tablet PO (10:28)
[2021-03-14] MEDS: Ferrous Sulfate 325 MG Tablet PO (10:28)
[2021-03-14] MEDS: Ezetimibe 10 MG Tablet PO (10:28)
--- NOTE | 2021-03-14 10:42 | NURSING ---
RNCM SHIELDS Note: Went to patient bedside, introduced self and role. Explained and reviewed SHIELDS form with patient in regards to current treatment this hospitalization. Informed outpatient billing is determined by her insurance policy and continual review is conducted to determine any changes in condition that may warrant inpatient stay. Denies any questions with SHIELDS form and patient signed SHIELDS form. Original placed in patient hard chart and patient provided a copy. EVELYN Moody
--- NOTE | 2021-03-14 10:44 | NURSING ---
RN CM Assessment Introduced role of RN CM to patient. Patient is alert, oriented and able to participate in RN CM Assessment. Care providers, pharmacy, and demographics verified. Admit Dx: Chest Pain Barriers/Issues: None PCP: Efrain Gibson Specialists: Cardio- Dr Landa, [facility] or [place] Preferred Pharmacy: [facility] Insurance: [facility] A/B, [facility] Rx Benefit: HAs discount with [facility] LNOK: Terell Deng LW/HPOA: None, thinks might have a LW completed but has to look. AD info provided and informed can return as an outpatient to complete with dept at a later time. Living Arrangements: Lives with in a 2SH, bedroom on ground level. ADL?s: Independent with ambulation and ADLs Transportation: Both patient and her drive. will transport upon DC. DME: None HHC: None SNF: None. Has been to in [place] in past after cardiac surgery. Goal: Home and does not think will have any needs. Denies any issues, questions, concerns or needs with going home and DC planning at this time. Aware RNCM remains available should any emerging needs arise. DC PLAN: Home and no anticipated needs identified. EVELYN Moody
[2021-03-14 12:26] LABS: Bedside Glucose 131 mg/dL (70-110)
--- NOTE | 2021-03-14 12:40 | STRESSREP ---
Stress Test Report Date: 03-14-2021 Procedure: Pharmacologic stress nuclear imaging study Indications: Chest pain Consent: Per the patient Procedure: The patient underwent pharmacologic (Regadenoson 0.4mg ) evaluation with a peak heart rate of 114 beats per minute (75%predicted maximal heart rate) and a peak blood pressure of 162/94 mmHg. The baseline ECG demonstrated sinus rhythm. The peak pharmacologic ECG demonstrated no obvious ECG changes. There were no cardiac dysrhythmias pretest, during pharmacologic infusion, or recovery. There was no complaint of chest discomfort during pharmacologic infusion or recovery. The examination was discontinued secondary to completion of protocol. Impression: 1. Pharmacologic (Regadenoson) evaluation 2. Peak pharmacologic ECG with no obvious ECG changes. 3. There were no cardiac dysrhythmias pretest, during pharmacologic infusion, or recovery. 4. Nuclear images pending Myocardial perfusion imaging study: Technique: The patient was injected with 12.0 millicuries of technetium 99m Cardiolite and subsequently rest SPECT Cardiolite nuclear imaging was obtained in the horizontal long, vertical long, and short axis views. The patient underwent pharmacologic (Regadenoson) evaluation with a peak heart rate of 114 beats per minute (75% percent predicted maximal heart rate) and a peak blood pressure of 162/94 mmHg. The patient was injected with 33.6 millicuries of technetium 99m Cardiolite and subsequently stress SPECT Cardiolite nuclear imaging was obtained in the horizontal long, vertical long, and short axis views. A gated Cardiolite study at peak stress was obtained. Interpretation: Rest and stress SPECT Cardiolite nuclear imaging status post realignment, normalization, and attenuation correction demonstrate at rest the appearance of subtle diminished tracer uptake in the distal anterior segments which does post-rest appears to improve/normalize. The gated Cardiolite study demonstrates myocardial thickening and inward wall motion. There is end systolic thickening and brightening. The reported LVEF is 61%. Impression: 1. Rest and stress myocardial nuclear imaging demonstrate myocardial perfusion changes at rest which appear to improve/normalize following stress appearing compatible with shifting soft tissue attenuation/artifact with no myocardial perfusion changes considered diagnostic for associated stress-induced myocardial ischemia. 2. The gated Cardiolite study reports an LVEF of 61%. This note was generated with [employer] software. It may contain incorrect words, spelling, and punctuation that were not noted in checking the note before signing.
--- NOTE | 2021-03-14 13:09 | PCM.DC ---
Discharge Instructions Diet Discharge Diet: Low fat / Low cholesterol Activity Discharge Activity: Return to Normal Activity Dressing / Incision Call your doctor if you observe: Shortness of breath, Dizziness and Chest pain Follow Up Care Test Results: Test results from this visit will be discussed in further detail at your follow-up appointment, if applicable. Discharge Plan Admission Admit Date/Time: 03/13/21 09:58 Primary Reason for Your Visit: Chest pain Attending Provider: Britt Vasquez Primary Care Provider: Efrain Gibson Discharge Orders/Prescriptions Prescriptions: New pantoprazole [Protonix] 40 mg tablet,delayed release (DR/EC) 40 mg PO DAILY Qty: 30 RF: 0 Continued aspirin [Adult Aspirin Regimen] 81 mg tablet,delayed release (DR/EC) 81 mg PO DAILY RF: 0 nitroglycerin 0.4 mg tablet, sublingual 0.4 mg SUBLINGUAL Q5-15M PRN (Reason: chest pain) Qty: 25 RF: 3 atenolol 50 mg tablet 50 mg PO DAILY Qty: 90 RF: 3 potassium 99 MG tablet 99 mg PO DAILY RF: 0 ferrous sulfate 325 MG tablet 325 mg PO TIDCM RF: 0 escitalopram oxalate 10 MG tablet 10 mg PO PRN PRN (Reason: Anxiety) RF: 0 quinapril 5 mg tablet 5 mg PO DAILY Qty: 90 RF: 3 ranolazine [Ranexa] 500 mg tablet extended release 12 hr 500 mg PO BID Qty: 60 RF: 11 isosorbide mononitrate 60 mg tablet extended release 24 hr 60 mg PO BID Qty: 60 RF: 11 clopidogrel [Plavix] 75 mg tablet 75 mg PO DAILY Qty: 90 RF: 3 ezetimibe [Zetia] 10 mg tablet 10 mg PO DAILY Qty: 30 RF: 3 furosemide 20 mg tablet 20 mg PO DAILY Qty: 90 RF: 3 Discontinued omeprazole magnesium [Prilosec OTC] 20 mg Tablet,Delayed Release (Dr/Ec) 20 mg PO DAILY RF: 0 Referrals / Follow Up: Jose Luis Landa MD [STAFF PHYSICIAN] - See Referral Note (As scheduled, 03/22/21) Efrain Gibson DO [Primary Care Provider] - In 1 Week Disposition Disposition (needs filled in before D/C Order can be placed): Home, self care
--- NOTE | 2021-03-14 13:15 | PCM.DC.SUM ---
Documented by User: Fadumo Brown NP, SURGICAL PROCESSOR-C 03/14/21 13:21 Providers Date of Admission: 03/13/21 Date of Discharge: 03/14/21 Primary Care Physician: Dr. Efrain Gibson DO Reason For Visit: CHEST PAIN Diagnosis Discharge Diagnosis (1) Chest pain: Status: Acute Code(s): R07.9 - Chest pain, unspecified Medications at Discharge Home Medications aspirin 81 mg tablet,delayed release 81 mg PO DAILY 03/30/20 nitroglycerin 0.4 mg sublingual tablet 0.4 mg SUBLINGUAL Q5-15M PRN #25 tab 04/29/20 quinapril 5 mg tablet 5 mg PO DAILY #90 tab 08/23/20 atenolol 50 mg tablet 50 mg PO DAILY #90 tab 08/25/20 ranolazine 500 mg tablet,extended release,12 hr 500 mg PO BID #60 tab 08/30/20 escitalopram oxalate 10 mg PO PRN PRN 09/06/20 ferrous sulfate 325 mg PO TIDCM 09/06/20 potassium 99 mg PO DAILY 09/06/20 isosorbide mononitrate 60 mg tablet,extended release 24 hr 60 mg PO BID #60 tab 09/08/20 clopidogrel 75 mg tablet 75 mg PO DAILY #90 tab 11/25/20 ezetimibe 10 mg tablet 10 mg PO DAILY #30 tab 11/26/20 furosemide 20 mg tablet 20 mg PO DAILY #90 tab 02/01/21 pantoprazole [Protonix] 40 mg PO DAILY #30 tab 03/14/21 Hospital Course Operations None Procedures Stress test Summary of Care Provided Minutes Spent on Discharge: 35 Hospital Course: Patient is a 70-year-old female admitted 03/13/2021 due to chest pain. 1. Chest pain, CAD with history of stents- ACS ruled out. Follows with Dr. Landa. Previous stent April 2020. Troponin negative. EKG without ST-T changes. Patient underwent stress test which showed no evidence of stress-induced ischemia, LVEF 61%. Continue aspirin, statin, isosorbide, atenolol, Ranexa. Follow-up with cardiology as scheduled. Increased home PPI as symptoms may be related to GERD. Patient reports significant anxiety as well, recommend outpatient follow-up with PCP. 2. Type 2 diabetes mellitus-Hemoglobin A1c 6.2%. Not on regimen 3. Hypertension-stable, continue atenolol, Lasix, isosorbide, quinapril, Ranexa. 4. Hyperlipidemia-continue statin. 5. Obesity-encouraged diet and lifestyle modifications. 6. Anxiety/depression-on escitalopram. Physical Exam Const alert, oriented x3 and no apparent distress Orientation / Consciousness: awake, oriented to person, oriented to place and oriented to time HEENT normocephalic and moist oral mucous membranes Eyes PERRL, EOMs intact bilaterally and conjunctivae normal Neck no lymphadenopathy Resp normal respiratory effort and clear to auscultation bilaterally Cardio regular rate, regular rhythm and no murmurs Peripheral Pulses: pulses 2+ throughout GI normal to inspection, nondistended, normoactive bowel sounds, non-tender and non-distended Extremity normal to inspection Skin no rashes or lesions noted Lesions: no lesions Rashes: no rashes Trauma: no lacerations or abrasions Neuro CN's II-XII intact bilaterally, no focal motor deficits, no sensory deficits noted and deep tendon reflexes 2+ bilaterally Psych mental status grossly normal and affect normal Patient seen and examined prior to discharge. Physical assessment as noted above. Patient is stable for discharge with follow up recommendations as noted above. This patient was seen by MARTINA Mcelroy under the supervision of Dr. Vasquez. ABG / Lab / Microbiology Data Result Diagrams: 03/14/21 06:05 03/14/21 06:05 Laboratory: Laboratory Results - last 24 hr 03/13/21 03/13/21 03/13/21 11:46 16:53 21:48 WBC RBC Hgb Hct MCV MCH MCHC RDW Std Deviation RDW Coeff of [place] Plt Count MPV Immature Gran % (Auto) Neut % (Auto) Lymph % (Auto) [place] % (Auto) Eos % (Auto) Baso % (Auto) Absolute Neuts (auto) Absolute Lymphs (auto) Nucleated RBC % Sodium Potassium Chloride Carbon Dioxide Anion Gap BUN Creatinine Estim Creat Clear Calc Est GFR (MDRD) Af Amer Est GFR (MDRD) Non-Af BUN/Creatinine Ratio Glucose Calcium Total Bilirubin AST ALT Alkaline Phosphatase Troponin I < 0.015 Total Protein Albumin Globulin Albumin/Globulin Ratio Triglycerides Cholesterol LDL Cholesterol VLDL Cholesterol HDL Cholesterol POC Glucose 104 130 H 03/14/21 03/14/21 03/14/21 06:05 06:05 06:05 WBC 5.6 RBC 5.44 H Hgb 14.1 Hct 45.2 MCV 83.1 MCH 25.9 L MCHC 31.2 L RDW Std Deviation 41.7 RDW Coeff of [place] 13.8 Plt Count 247 MPV 9.6 Immature Gran % (Auto) 0.200 Neut % (Auto) 61.5 Lymph % (Auto) 26.4 [place] % (Auto) 9.0 Eos % (Auto) 2.0 Baso % (Auto) 0.9 Absolute Neuts (auto) 3.5 Absolute Lymphs (auto) 1.49 Nucleated RBC % 0 Sodium 135 L Potassium 3.9 Chloride 100 Carbon Dioxide 29.0 Anion Gap 6 BUN 14 Creatinine 1.01 Estim Creat Clear Calc 42.16 Est GFR (MDRD) Af Amer 70 Est GFR (MDRD) Non-Af 58 L BUN/Creatinine Ratio 13.9 Glucose 143 H Calcium 9.3 Total Bilirubin 0.90 AST 14 L ALT 18 Alkaline Phosphatase 78 Troponin I Total Protein 7.0 Albumin 3.3 Globulin 3.7 Albumin/Globulin Ratio 0.9 Triglycerides 179 Cholesterol 187 LDL Cholesterol 93 VLDL Cholesterol 36 HDL Cholesterol 58 POC Glucose 138 H 03/14/21 12:08 WBC RBC Hgb Hct MCV MCH MCHC RDW Std Deviation RDW Coeff of [place] Plt Count MPV Immature Gran % (Auto) Neut % (Auto) Lymph % (Auto) [place] % (Auto) Eos % (Auto) Baso % (Auto) Absolute Neuts (auto) Absolute Lymphs (auto) Nucleated RBC % Sodium Potassium Chloride Carbon Dioxide Anion Gap BUN Creatinine Estim Creat Clear Calc Est GFR (MDRD) Af Amer Est GFR (MDRD) Non-Af BUN/Creatinine Ratio Glucose Calcium Total Bilirubin AST ALT Alkaline Phosphatase Troponin I Total Protein Albumin Globulin Albumin/Globulin Ratio Triglycerides Cholesterol LDL Cholesterol VLDL Cholesterol HDL Cholesterol POC Glucose 131 H D/C Instructions Discharge Diet: Low fat / Low cholesterol Call your doctor if you observe: Shortness of breath, Dizziness and Chest pain Meaningful Use Info Meaningful Use Diagnoses (Choose all that apply): None applicable Discharge Plan Admission Admit Date/Time: 03/13/21 09:58 Primary Reason for Your Visit: Chest pain Attending Provider: Britt Vasquez Primary Care Provider: Efrain Gibson Discharge Orders/Prescriptions Prescriptions: New pantoprazole [Protonix] 40 mg tablet,delayed release (DR/EC) 40 mg PO DAILY Qty: 30 RF: 0 Continued aspirin [Adult Aspirin Regimen] 81 mg tablet,delayed release (DR/EC) 81 mg PO DAILY RF: 0 nitroglycerin 0.4 mg tablet, sublingual 0.4 mg SUBLINGUAL Q5-15M PRN (Reason: chest pain) Qty: 25 RF: 3 atenolol 50 mg tablet 50 mg PO DAILY Qty: 90 RF: 3 potassium 99 MG tablet 99 mg PO DAILY RF: 0 ferrous sulfate 325 MG tablet 325 mg PO TIDCM RF: 0 escitalopram oxalate 10 MG tablet 10 mg PO PRN PRN (Reason: Anxiety) RF: 0 quinapril 5 mg tablet 5 mg PO DAILY Qty: 90 RF: 3 ranolazine [Ranexa] 500 mg tablet extended release 12 hr 500 mg PO BID Qty: 60 RF: 11 isosorbide mononitrate 60 mg tablet extended release 24 hr 60 mg PO BID Qty: 60 RF: 11 clopidogrel [Plavix] 75 mg tablet 75 mg PO DAILY Qty: 90 RF: 3 ezetimibe [Zetia] 10 mg tablet 10 mg PO DAILY Qty: 30 RF: 3 furosemide 20 mg tablet 20 mg PO DAILY Qty: 90 RF: 3 Discontinued omeprazole magnesium [Prilosec OTC] 20 mg Tablet,Delayed Release (Dr/Ec) 20 mg PO DAILY RF: 0 Referrals / Follow Up: Jose Luis Landa MD [STAFF PHYSICIAN] - See Referral Note (As scheduled, 03/22/21) Efrain Gibson DO [Primary Care Provider] - In 1 Week Disposition Disposition (needs filled in before D/C Order can be placed): Home, self care Documented by User: Dr. Britt Vasquez MD 03/14/21 14:11 Providers Date of Admission: 03/13/21 Reason For Visit: CHEST PAIN Medications at Discharge Home Medications aspirin 81 mg tablet,delayed release 81 mg PO DAILY 03/30/20 nitroglycerin 0.4 mg sublingual tablet 0.4 mg SUBLINGUAL Q5-15M PRN #25 tab 04/29/20 quinapril 5 mg tablet 5 mg PO DAILY #90 tab 08/23/20 atenolol 50 mg tablet 50 mg PO DAILY #90 tab 08/25/20 ranolazine 500 mg tablet,extended release,12 hr 500 mg PO BID #60 tab 08/30/20 escitalopram oxalate 10 mg PO PRN PRN 09/06/20 ferrous sulfate 325 mg PO TIDCM 09/06/20 potassium 99 mg PO DAILY 09/06/20 isosorbide mononitrate 60 mg tablet,extended release 24 hr 60 mg PO BID #60 tab 09/08/20 clopidogrel 75 mg tablet 75 mg PO DAILY #90 tab 11/25/20 ezetimibe 10 mg tablet 10 mg PO DAILY #30 tab 11/26/20 furosemide 20 mg tablet 20 mg PO DAILY #90 tab 02/01/21 pantoprazole [Protonix] 40 mg PO DAILY #30 tab 03/14/21 Hospital Course Operations None Procedures EKG and Nuclear stress test Summary of Care Provided Minutes Spent on Discharge: 25 Hospital Course: This is a 70 years old female patient presented to the emergency room because of chest pain. She had history of CAD status post stents. Her EKG revealed no acute ischemic changes. Troponin was negative x3. Her chest x-ray showed no acute findings. She underwent nuclear stress test that showed no evidence of stress-induced myocardial ischemia with ejection fraction of 61%. Patient continued to have mild chest discomfort. She does have a history of GERD which could be causing her symptoms. Patient has been using omeprazole [id number]. She was started on Protonix. ACS ruled out. Patient discharged home in a stable medical condition, continue with her previous medications without any changes, started on Protonix 40 mg p.o. daily, recommended follow-up with PCP in 1 week. Physical Exam Const alert, oriented x3, no apparent distress and no limitations General Appearance: cooperative, comfortable and well kempt HEENT normocephalic, head/scalp atraumatic and moist oral mucous membranes Head and Scalp: normocephalic and atraumatic Eyes PERRL, EOMs intact bilaterally, conjunctivae normal and no scleral icterus General Eye: normal appearance of both eyes Periorbital: periorbital findings normal Neck no lymphadenopathy, supple, no meningeal signs, no JVD and no carotid bruits General: trachea midline Thyroid: thyroid normal Resp normal respiratory effort, normal air movement and clear to auscultation bilaterally Auscultation: Negative for crackles, rales, rhonchi or wheezes Cardio regular rate, regular rhythm, S1 normal heart sound, S2 normal heart sound, no murmurs and no JVD Peripheral Pulses: pulses 2+ throughout GI normal to inspection, nondistended, normoactive bowel sounds, soft to palpation, non-tender and non-distended; Negative for hepatosplenomegaly Auscultation: normoactive bowel sounds Extremity normal to inspection, full ROM and no clubbing, cyanosis or edema Skin no rashes or lesions noted, no wounds and no petechiae Neuro oriented x3, CN's II-XII intact bilaterally and moves all extremities Sensorium / Orientation: alert Speech: speech normal Motor Exam: strength 5/5 throughout Psych mental status grossly normal, affect normal and denies hallucinations ABG / Lab / Microbiology Data Result Diagrams: 03/14/21 06:05 03/14/21 06:05 Discharge Plan Admission Admit Date/Time: 03/13/21 09:58 Primary Reason for Your Visit: Chest pain Attending Provider: Britt Vasquez Primary Care Provider: Efrain Gibson Discharge Orders/Prescriptions Prescriptions: New pantoprazole [Protonix] 40 mg tablet,delayed release (DR/EC) 40 mg PO DAILY Qty: 30 RF: 0 Continued aspirin [Adult Aspirin Regimen] 81 mg tablet,delayed release (DR/EC) 81 mg PO DAILY RF: 0 nitroglycerin 0.4 mg tablet, sublingual 0.4 mg SUBLINGUAL Q5-15M PRN (Reason: chest pain) Qty: 25 RF: 3 atenolol 50 mg tablet 50 mg PO DAILY Qty: 90 RF: 3 potassium 99 MG tablet 99 mg PO DAILY RF: 0 ferrous sulfate 325 MG tablet 325 mg PO TIDCM RF: 0 escitalopram oxalate 10 MG tablet 10 mg PO PRN PRN (Reason: Anxiety) RF: 0 quinapril 5 mg tablet 5 mg PO DAILY Qty: 90 RF: 3 ranolazine [Ranexa] 500 mg tablet extended release 12 hr 500 mg PO BID Qty: 60 RF: 11 isosorbide mononitrate 60 mg tablet extended release 24 hr 60 mg PO BID Qty: 60 RF: 11 clopidogrel [Plavix] 75 mg tablet 75 mg PO DAILY Qty: 90 RF: 3 ezetimibe [Zetia] 10 mg tablet 10 mg PO DAILY Qty: 30 RF: 3 furosemide 20 mg tablet 20 mg PO DAILY Qty: 90 RF: 3 Discontinued omeprazole magnesium [Prilosec OTC] 20 mg Tablet,Delayed Release (Dr/Ec) 20 mg PO DAILY RF: 0 Referrals / Follow Up: Jose Luis Landa MD [STAFF PHYSICIAN] - See Referral Note (As scheduled, 03/22/21) Efrain Gibson DO [Primary Care Provider] - In 1 Week Disposition Disposition (needs filled in before D/C Order can be placed): Home, self care Charges/Coding Visit Charges OBSV E&M: 35611 Observation care discharge
--- NOTE | 2021-03-14 14:17 | PHA.DC.MC ---
Pharmacy Service has performed discharge medication reconciliation and counseling for this patient. 1. PANTOPRAZOLE 40MG PO DAILY The patient's discharge medication list was reviewed for discrepancies and discrepancies were resolved. Home Medications aspirin 81 mg tablet,delayed release 81 mg PO DAILY 03/30/20 nitroglycerin 0.4 mg sublingual tablet 0.4 mg SUBLINGUAL Q5-15M PRN #25 tab 04/29/20 quinapril 5 mg tablet 5 mg PO DAILY #90 tab 08/23/20 atenolol 50 mg tablet 50 mg PO DAILY #90 tab 08/25/20 ranolazine 500 mg tablet,extended release,12 hr 500 mg PO BID #60 tab 08/30/20 escitalopram oxalate 10 mg PO PRN PRN 09/06/20 ferrous sulfate 325 mg PO TIDCM 09/06/20 potassium 99 mg PO DAILY 09/06/20 isosorbide mononitrate 60 mg tablet,extended release 24 hr 60 mg PO BID #60 tab 09/08/20 clopidogrel 75 mg tablet 75 mg PO DAILY #90 tab 11/25/20 ezetimibe 10 mg tablet 10 mg PO DAILY #30 tab 11/26/20 furosemide 20 mg tablet 20 mg PO DAILY #90 tab 02/01/21 pantoprazole [Protonix] 40 mg PO DAILY #30 tab 03/14/21 The patient was counseled on the following discharge medications and changes in medications for homegoing were reviewed. The Reason for Use, instructions for use, and potential side effects were reviewed for all new medications. The patient's questions regarding all of their medications were answered. The patient was able to verbally demonstrate an understanding of their discharge medications.
== END 2021-03-14 13:11 | disposition home or self-care (01) ==
LOC: ED 10:01 → PCU 10:05
PROVIDERS: Admitting Provider Family Medicine; Emergency Provider Emergency Medicine; Visit Provider Hospitalist
DX: R07.89 Other chest pain (principal); R20.0 Anesthesia of skin; I25.2 Old myocardial infarction; I50.9 Heart failure, unspecified; I11.0 Hypertensive heart disease with heart failure; F41.9 Anxiety disorder, unspecified; E78.5 Hyperlipidemia, unspecified; M19.90 Unspecified osteoarthritis, unspecified site; E66.9 Obesity, unspecified; I25.10 Atherosclerotic heart disease of native coronary artery without angina pectoris; F32.9 Major depressive disorder, single episode, unspecified; E11.9 Type 2 diabetes mellitus without complications; Z79.899 Other long term (current) drug therapy; Z79.82 Long term (current) use of aspirin; Z87.891 Personal history of nicotine dependence; Z79.02 Long term (current) use of antithrombotics/antiplatelets; K21.9 Gastro-esophageal reflux disease without esophagitis
CPT/HCPCS: 36415; 71045; 78452; 80048; 80053; 80061; 82962; 83036; 83735; 84484; 85025; 85610; 93005; 93017; 96372; 99218; 99251; 99285; A9500; A4216; G0378; G0463; J2785

== ENCOUNTER 2021-03-28 08:33 | Day surgery (SDC) | payer MEDICARE, OTHER, SELFPAY ==
[2021-03-22 08:03] VITALS: BMI 36.3
[2021-03-25 07:42] VITALS: BMI 36.3
--- NOTE | 2021-03-31 12:31 | CL.D_ITS ---
Patient Name: NEDA BROOKS Study Date: 03/28/2021 Performing: Jose Luis Landa MD Ht: 61.81 inches 157 cm : 1950 Wt: 198.42 lbs 90 kg Age: 70 Gender: female BSA: 1.9 PROCEDURE(S) PERFORMED [id number]/LV CLINICAL PROFILE AND INDICATIONS Indications: Suspected CAD Heart Failure: None Stress/Imaging Date: 03/18/21ress Test with SPECT MPI: Positive Low Risk CAD Presentations: Stable angina. CONCLUSIONS Patient has previously placed stents in the proximal and mid LAD which are patent and moderate diseas e noted in the right coronary artery which do not appear to be changed compared to the previous antony terization. RECOMMENDATIONS Medical therapy DESCRIPTION OF PROCEDURE The patient arrived to the procedure lab. The risks and benefits of the procedure as well as a full d escription of our services here and current unavailability of surgical backup were fully explained to the patient and/or their significant other prior to the catheterization. The Timeout was completed, verifying the correct patient and procedure. The patient's procedural site was prepped and draped in the usual fashion. Local anesthetic was given subcutaneously to right radial region with Lidocaine 2% . Using a modified Seldinger technique, arterial access was obtained via the right radial artery, a 6 Fr sheath was inserted. Right Coronary Artery selective angiography was then performed in multiple v iews using a 5 Fr. 4.0 [place] catheter. Left Coronary Artery selective angiography was performed in mu ltiple views using a 5 Fr. 4.0 [place] catheter. Left Ventriculography was performed in BANDA projection using a 5 Fr. [place] catheter. LV to AO pullback pressures were then recorded.The arterial sheath was pulled and a TR Band was applied for hemostasis CORONARY ANGIOGRAPHY DOMINANCE: Right Dominant LEFT HEART ASSESSMENT Left Ventricular Ejection Fraction: by LV Gram 70 % Normal LV wall motion Normal Left Ventricular systolic function LEFT MAIN: Angiographically normal LEFT ANTERIOR DESCENDING ARTERY: PROX LAD: Previously placed stent is patent MID LAD: Previously placed stent is patent CIRCUMFLEX ARTERY: No significant disease noted RIGHT CORONARY ARTERY: PROX RCA: Mild luminal irregularities less than 30% MID RCA: Moderate luminal irregularities up to 50% RT PDA: Proximal - 65 % Stenosis COMPLICATIONS No Complications PROCEDURE MEDICATIONS Versed 1 mg IV Fentanyl 50 mcg IV Versed 1 mg IV Oxygen: 2 L/min via nasal cannula Heparin given IA 03/28/2021 11:42:34 Verapamil 2.5mg, Ntg 100mcgs, 3000 units of Heparin given IA 03/28/2021 11:42:34 SUMMARY OF HEMODYNAMIC DATA Time AIR REST ECG 08:52:12 AO 129/66 (90) SA 11:45:34 LV 143/9, 15 11:53:29 LV 135/8, 11 11:53:35 LV 136/12, 19 11:54:22 LVp 135/10, 19 11:54:26 AOp 134/62 (88) 11:54:31 Signed By Jose Luis Landa MD On 03/28/2021 11:59:31 AM Jose Luis Landa MD
== END 2021-03-28 14:10 | disposition home or self-care (01) ==
LOC: CLSP 08:34
PROVIDERS: Referring Provider Internal Medicine Cardiovascular Disease; Visit Provider Internal Medicine Cardiovascular Disease
DX: I25.10 Atherosclerotic heart disease of native coronary artery without angina pectoris (principal); I10 Essential (primary) hypertension; E11.9 Type 2 diabetes mellitus without complications; E78.5 Hyperlipidemia, unspecified; F41.9 Anxiety disorder, unspecified; E66.9 Obesity, unspecified; M19.90 Unspecified osteoarthritis, unspecified site; I25.2 Old myocardial infarction; Z79.82 Long term (current) use of aspirin; Z79.899 Other long term (current) drug therapy; Z87.891 Personal history of nicotine dependence; Z68.36 Body mass index [BMI] 36.0-36.9, adult; Z95.5 Presence of coronary angioplasty implant and graft
CPT/HCPCS: 93458; 99152; 99153; J7040; Q9967; C1769; C1894

== ENCOUNTER → 2021-09-21 10:19 | Outpatient (CLI) | payer MEDICARE, OTHER, SELFPAY ==
[2021-09-21 11:03] LABS: Absolute Lymphocyte Count 1.77 X10^3/uL (0.83-4.51); Absolute Neutrophil Count 3.4 X10^3/uL (2.0-7.7); Basophil# 0.04 X10^3/uL; Basophil% 0.7 % (0-1); Eosinophil# 0.17 X10^3/uL; Eosinophils% 2.8 % (0-5); Hematocrit 42.4 % (37-47); Hemoglobin 12.9 g/dL (12.0-15.0); Lymphocyte # 1.77 X10^3/ul (0.83-4.51); Lymphocyte % 29.4 % (19-41); Mean Corp Hgb Conc 30.4 g/dL (32-36); Mean Corpuscular Hgb 25.7 pg (27.0-32.0); Mean Corpuscular Volume 84.5 fL (81-99); Mean Platelet Vol. 10.1 fl (6.2-12.0); Monocyte# 0.59 X10^3/uL; Monocyte% 9.8 % (0-10); NRBC Flagged by Analyzer 0 % (0-5); Neutrophil # 3.44 X10^3/uL (2.7-7.7); Platelet Count 272 K/mm3 (150-450); RBC Distribution Width CV 13.4 % (11.6-14.6); RBC Distribution Width SD 41.6 fl (35.1-43.9); Red Blood Count 5.02 M/mm3 (4.2-5.4)
[2021-09-21 11:39] LABS: Anion Gap 2 (5-15); BUN 20 mg/dL (7-18); BUN/Creat Ratio 21.2 RATIO (10-20); Calcium,Total 8.9 mg/dL (8.5-10.1); Chloride 106 mmol/L (98-107); Creatinine, Serum 0.94 mg/dL (0.55-1.02); EST Glomerular Filtration Rate 63 mL/min (>60); Est Glom Filt Rate - Afr Amer 76 mL/min (>60); Glucose 131 mg/dL (74-106); Iron 40 ug/dL (50-170); Iron Binding Capacity,Total 383 ug/dL (250-450); PERCENT IRON SATURATION 10.4 % (15.0-55.0); Potassium 4.1 mmol/L (3.5-5.1); Sodium Level 139 mmol/L (136-145); Thyroid Stim Hormone (TSH) 2.12 uIU/mL (0.358-3.74)
== END ==
PROVIDERS: Visit Provider Physician Assistant Medical
DX: E78.5 Hyperlipidemia, unspecified (principal); R53.83 Other fatigue; I25.10 Atherosclerotic heart disease of native coronary artery without angina pectoris; I10 Essential (primary) hypertension
CPT/HCPCS: 36415; 80048; 83540; 83550; 84443; 85025

== ENCOUNTER 2022-03-13 11:20 | Emergency (ER) | payer MEDICARE, OTHER, SELFPAY ==
[2022-03-13] VITALS (7 sets, daily range): BP systolic 134–171; BP diastolic 70–77; PULSE 62–66; RESP 16–29; TEMP 36.9–37.3; O2SAT 94–97; BMI 40.6
--- NOTE | 2022-03-13 12:12 | EKG12_ITS ---
Test Reason : CP Blood Pressure : / mmHG Vent. Rate : 071 BPM Atrial Rate : 071 BPM P-R Int : 178 ms QRS Dur : 078 ms QT Int : 400 ms P-R-T Axes : -05 -08 033 degrees QTc Int : 434 ms Normal sinus rhythm Normal ECG Confirmed by BRENNEN SOTO, JOSE ([id number]), marketing editor JUSTYN PHILLIPS ([id number]) on 03/14/2022 1:36:55 PM Referred By: KELLY Confirmed By:JOSE HUTTON MD
--- NOTE | 2022-03-13 12:14 | ED.VIS.DYS ---
HPI History of Present Illness Chief Complaint: Shortness of Breath Informant: patient Onset/Context/Timing Onset: Today (early this AM) Context: - (noticed as she was walking to toilet to urinate in middle of the night) Timing: Continuous Quality: Positive for Dyspnea on exertion Current Severity: Moderate Maximum Severity: Moderate Worsened by: Exertion and Coughing Relieved by: Rest Associated Symptoms cough Chest Pain: Positive for Intermittent (chronic, unchanged; not present at this time) and Aching (left chest when occurs) Narrative Narrative: Patient woke up this morning with a new nonproductive cough and dyspnea with exertion. She never lies down because of stomach issues and reflux. She has edema in her legs it is no worse than usual. She has been compliant with her medications and has had no changes recently. No contact with anyone with COVID that she knows of. She has been vaccinated against COVID prior. She denies any fevers or chills this morning. She has not coughed up anything. States she has chronic left-sided intermittent chest aching without radiation. It is no different than usual, she does not have it at this time. She states she has congestive heart failure, her EF was told to her 40%, and that she wants to make sure she is not in acute congestive heart failure and states well what could be causing my cough? [facility] Medical History (Updated 03/13/22 @ 15:[address] Scott Razo MD) Anxiety Atherosclerosis of coronary artery without angina pectoris CHF (congestive heart failure) Essential (primary) hypertension Former smoker GI bleed History of non-ST elevation myocardial infarction (NSTEMI) (04/20/20) Hyperlipidemia Obesity Osteoarthritis Type 2 diabetes mellitus Home Medications aspirin 81 mg tablet,delayed release 81 mg PO DAILY 03/30/20 [History Last Taken 03/28/21] nitroglycerin 0.4 mg sublingual tablet 0.4 mg SUBLINGUAL Q5-15M PRN #25 tab 04/29/20 [Rx Last Taken 03/13/21 07:30] atenolol 50 mg tablet 50 mg PO DAILY #90 tab 08/25/20 [Rx Last Taken 03/28/21] ranolazine 500 mg tablet,extended release,12 hr 500 mg PO BID #60 tab 08/30/20 [Rx Last Taken 03/28/21] escitalopram oxalate 10 mg PO PRN PRN 09/06/20 [History Last Taken Unknown] potassium 99 mg PO DAILY 09/06/20 [History Last Taken 03/13/21 07:00] ezetimibe 10 mg tablet 10 mg PO DAILY #30 tab 11/26/20 [Rx Last Taken 03/13/21 07:00] furosemide 20 mg tablet 20 mg PO DAILY #90 tab 02/01/21 [Rx Last Taken 03/12/21 10:00] isosorbide mononitrate 60 mg tablet,extended release 24 hr 60 mg PO BID #60 tab 08/08/21 [Rx Last Taken Unknown] quinapril 5 mg tablet See Rx Instructions .ROUTE .COMPLEX #90 tab 08/22/21 [Rx Last Taken Unknown] cholecalciferol (vitamin D3) 50 mcg (2,000 unit) capsule 50 mcg PO DAILY 09/21/21 [History Last Taken Unknown] omeprazole 20 mg capsule,delayed release 20 mg PO DAILY 09/21/21 [History Last Taken Unknown] clopidogrel 75 mg tablet 75 mg PO DAILY #90 tab 10/24/21 [Rx Last Taken Unknown] levofloxacin 750 mg PO DAILY #6 tab 03/13/22 [Rx Last Taken Unknown] Allergy/AdvReac Type Severity Reaction Status Date / Time atorvastatin Allergy Severe Other Verified 03/13/22 11:22 codeine AdvReac Diarrhea Verified 03/13/22 11:22 metformin AdvReac gi upset Verified 03/13/22 11:22 naproxen AdvReac Diarrhea Verified 03/13/22 11:22 nitrofurantoin AdvReac Nausea Verified 03/13/22 11:22 [From Macrobid] Family History Sister Myocardial infarction age 53 Cancer Sister Heart disease Myocardial infarction, Onset Age: 69 Mother Myocardial infarction, Onset Age: 63 Brother Cancer Other CAD (coronary artery disease) Surgical History History of coronary artery stent placement (04/19/20) History of left heart catheterization (03/31/21) History of open reduction and internal fixation (ORIF) procedure History of tubal ligation Social History adopted: No household members: spouse housing: house number of children: 3 current occupational status: retired current occupational exposures/hazards: No pets and animals: No leisure activities: fishing history of recent travel: No sexually active: No Smoking Status: Former smoker quit date: 10/08/77 pack-years: 6 Electronic Cigarette Use: not used alcohol intake: never seatbelt use: always do you feel safe at home: Yes ROS ROS ED Constitutional Constitutional ED: Denies chills or fever(s) Eyes Eyes: Denies change in vision or diplopia ENT ENT ED: Denies rhinorrhea or sore throat Cardiovascular Cardiovascular: Reports as per HPI and chest pain; Denies palpitations Respiratory/Chest Respiratory/Chest: Reports cough, dyspnea on exertion and other Details: doesn't lie down so unk if orthopneic Gastrointestinal Gastrointestinal: Denies abdominal pain, diarrhea, nausea or vomiting Genitourinary Genitourinary ED: Reports dysuria; Denies hematuria Musculoskeletal Musculoskeletal: Denies back pain or neck pain Integumentary Denies abscess or rash Neurologic Neurologic: Denies headache(s), paresthesias or weakness Psychiatric Psychiatric: Denies anxiety or suicidal thoughts EXAM Physical Exam Const Vital Signs: 03/13/22 11:22 03/13/22 11:39 03/13/22 12:23 Temperature 98.6 F 98.5 F Temperature Source Temporal Temporal Pulse Rate 66 63 65 Respiratory Rate 22 H 17 23 H Respiratory Effort Short of Breath Respiratory Depth Shallow Respiratory Pattern Normal Tachypnea Blood Pressure 171/75 H 162/70 H Blood Pressure Mean 107 100 Pulse Ox 94 96 Oxygen Delivery Method Room Air Room Air 03/13/22 12:34 03/13/22 13:47 Temperature 98.4 F 99.2 F H Temperature Source Temporal Temporal Pulse Rate 66 65 Respiratory Rate 20 H 29 H Respiratory Effort Respiratory Depth Respiratory Pattern Blood Pressure 160/73 H 148/77 H Blood Pressure Mean 102 100 Pulse Ox 95 95 Oxygen Delivery Method Room Air Room Air Positive well nourished, well developed and obese General Appearance ED: well developed and NAD Nutritional Appearance: obese HEENT Reports moist mucous membranes normocephalic and atraumatic Eyes PERRL and EOMs intact bilaterally Neck full ROM, no lymphadenopathy, supple and no JVD Resp normal respiratory effort and clear to auscultation bilaterally Resp Narrative: occ dry cough Effort and Inspection: able to speak in complete sentences Cardio regular rate, regular rhythm, no murmurs and peripheral pulses 2+ throughout GI non-tender and non-distended Auscultation: normoactive bowel sounds Palpation: soft Back/Spine no CVA tenderness General Back: other FROM Extremity normal to inspection General Extremety ED: Yes edema; Negative for pulses abnormal or tenderness General Extremity: edema bilateral lower extremity Details: mild (Symmetric); Negative for pulses abnormal Neuro oriented x3, CN's II-XII intact bilaterally and no sensory deficits noted Sensorium / Orientation: awake and alert Motor Exam: strength 5/5 throughout Skin no rashes or lesions noted and no wounds MDM MDM MDM Narrative Medical decision making narrative: Patient's work-up is consistent with pneumonia with negative COVID and influenza swabs, right middle lobe infiltrate mild and early on my interpretation of the 1 view chest x-ray, radiology in agreement. Her BNP is only 102, she does not have bibasilar rhonchi, nor other clinical findings of CHF arguing against this as a cause for her cough. I think treating her with antibiotics and having her follow-up closely as an outpatient is reasonable since she is breathing well and not hypoxemic. We ambulated her here and she did not drop her oxygen saturations. She does feel little better after breathing treatment. She is comfortable with that plan. Additionally, the patient asked if we would run a urinalysis because she had some dysuria. It does appear to be infected. The Levaquin I suspect will cover that as well, I did send a culture in case it does not, and let her know that. Lab Data Attestation: I reviewed the patient's lab results. Labs: Laboratory Results - last 24 hr 03/13/22 03/13/22 03/13/22 12:30 12:30 12:30 WBC 15.8 H RBC 4.96 Hgb 13.5 Hct 42.3 MCV 85.3 MCH 27.2 MCHC 31.9 L RDW Std Deviation 44.8 H RDW Coeff of Ibrahima 14.5 Plt Count 245 MPV 10.2 Immature Gran % (Auto) 0.400 Neut % (Auto) 88.9 H Lymph % (Auto) 5.4 L Caroline % (Auto) 4.6 Eos % (Auto) 0.4 Baso % (Auto) 0.3 Absolute Neuts (auto) 14.1 H Absolute Lymphs (auto) 0.85 Nucleated RBC % 0 Sodium 137 Potassium 4.0 Chloride 106 Carbon Dioxide 27.0 Anion Gap 4 L BUN 10 Creatinine 1.00 Estim Creat Clear Calc 40.07 Est GFR (MDRD) Af Amer 71 Est GFR (MDRD) Non-Af 58 L BUN/Creatinine Ratio 10.0 Glucose 175 H Calcium 9.3 Troponin I High Sens 6 B-Natriuretic Peptide 102.6 H Urine Color Urine Clarity Urine pH Ur Specific Spelter Urine Protein Urine Glucose (UA) Urine Ketones Urine Occult Blood Urine Nitrite Urine Bilirubin Urine Urobilinogen Ur Leukocyte Esterase Urine RBC Urine WBC Ur Squamous Epith Cells Urine Bacteria Urine Mucus 03/13/22 14:20 WBC RBC Hgb Hct MCV MCH MCHC RDW Std Deviation RDW Coeff of Ibrahima Plt Count MPV Immature Gran % (Auto) Neut % (Auto) Lymph % (Auto) Caroline % (Auto) Eos % (Auto) Baso % (Auto) Absolute Neuts (auto) Absolute Lymphs (auto) Nucleated RBC % Sodium Potassium Chloride Carbon Dioxide Anion Gap BUN Creatinine Estim Creat Clear Calc Est GFR (MDRD) Af Amer Est GFR (MDRD) Non-Af BUN/Creatinine Ratio Glucose Calcium Troponin I High Sens B-Natriuretic Peptide Urine Color Yellow Urine Clarity Cloudy Urine pH 7.0 Ur Specific Spelter 1.010 Urine Protein 15 H Urine Glucose (UA) Normal Urine Ketones Negative Urine Occult Blood 150 H Urine Nitrite Negative Urine Bilirubin Negative Urine Urobilinogen Normal Ur Leukocyte Esterase 500 H Urine RBC 0 SEEN Urine WBC >100 SEEN Ur Squamous Epith Cells 0 SEEN Urine Bacteria 1+ Urine Mucus 0 SEEN Radiography Diagnostic Testing: Clinical Impression(s) from Imaging Studies Chest X-Ray 03/13/22 12:25 IMPRESSION: Findings in keeping with right middle lobe infiltrate with increased markings at the left lung base. Electronically Signed: Kevin Abraham MD at 12:55 EDT , Discharge Plan Triage Chief Complaint: Shortness of Breath Other Complaint: Cough Numb/Ting Upper Extremity Injury ED Provider: Scott Razo Dx/Rx/DC Orders Clinical Impression: Pneumonia, Acute cystitis without hematuria Instructions: ED Pneumonia (Adult) Prescriptions: New levofloxacin 750 mg tablet 750 mg PO DAILY Qty: 6 RF: 0 No Action aspirin [Adult Aspirin Regimen] 81 mg tablet,delayed release (DR/EC) 81 mg PO DAILY RF: 0 nitroglycerin 0.4 mg tablet, sublingual 0.4 mg SUBLINGUAL Q5-15M PRN (Reason: chest pain) Qty: 25 RF: 3 atenolol 50 mg tablet 50 mg PO DAILY Qty: 90 RF: 3 omeprazole 20 mg capsule,delayed release(DR/EC) 20 mg PO DAILY RF: 0 cholecalciferol (vitamin D3) 50 mcg (2,000 unit) capsule 50 mcg PO DAILY RF: 0 potassium 99 MG tablet 99 mg PO DAILY RF: 0 escitalopram oxalate 10 MG tablet 10 mg PO PRN PRN (Reason: Anxiety) RF: 0 ranolazine [Ranexa] 500 mg tablet extended release 12 hr 500 mg PO BID Qty: 60 RF: 11 ezetimibe [Zetia] 10 mg tablet 10 mg PO DAILY Qty: 30 RF: 3 furosemide 20 mg tablet 20 mg PO DAILY Qty: 90 RF: 3 isosorbide mononitrate 60 mg tablet extended release 24 hr 60 mg PO BID Qty: 60 RF: 11 quinapril 5 mg tablet See Rx Instructions .ROUTE .COMPLEX Qty: 90 RF: 3 clopidogrel [Plavix] 75 mg tablet 75 mg PO DAILY Qty: 90 RF: 3 Primary Care Provider: Efrain Gibson Referrals: Efrain Gibson DO [Primary Care Provider] - 3-5 Days Activity Restrictions/Additional Instructions: Closely watch your oxygen levels periodically. If you stay below 90% for more than a minute or so, and/or you are feeling like your breathing is getting worse, return to the emergency department for further evaluation. Disposition Disposition: Home, Self Care
[2022-03-13] MEDS: Albuterol 2.5 MG/3 ML VIAL.NEB. INHALATION (12:22)
--- NOTE | 2022-03-13 12:25 | RAD_ITS ---
STUDY: X-RAY CHEST REASON FOR EXAM: Female, 71 years old. Cough sob TECHNIQUE: Single AP portable view of the chest. COMPARISON: Comparison is made with prior study 03/13/2021. FINDINGS: EKG electrodes are seen. Infiltrate in the right pericardiac region suggestive of right middle lobe infiltrate. Increased markings at the left lung base. There is no demonstrated pleural abnormality. Normal size heart. Normal mediastinum and edison. Normal visualized pulmonary arteries. Normal visualized aortic arch and descending thoracic aorta. There are diffuse degenerative changes of the visualized thoracic spine. Normal visualized ribs, clavicles, and shoulders. There is no demonstrated abnormality of the visualized soft tissue structures of the upper abdomen. RAD/Chest 1 View (Portable) IMPRESSION: Findings in keeping with right middle lobe infiltrate with increased markings at the left lung base. Electronically Signed: Kevin Abraham MD at 12:55 EDT ,
[2022-03-13 12:48] LABS: Absolute Lymphocyte Count 0.85 X10^3/uL (0.83-4.51); Absolute Neutrophil Count 14.1 X10^3/uL (2.0-7.7); Basophil# 0.04 X10^3/uL; Basophil% 0.3 % (0-1); Eosinophil# 0.07 X10^3/uL; Eosinophils% 0.4 % (0-5); Hematocrit 42.3 % (37-47); Hemoglobin 13.5 g/dL (12.0-15.0); Lymphocyte # 0.85 X10^3/ul (0.83-4.51); Lymphocyte % 5.4 % (19-41); Mean Corp Hgb Conc 31.9 g/dL (32-36); Mean Corpuscular Hgb 27.2 pg (27.0-32.0); Mean Corpuscular Volume 85.3 fL (81-99); Mean Platelet Vol. 10.2 fl (6.2-12.0); Monocyte# 0.73 X10^3/uL; Monocyte% 4.6 % (0-10); NRBC Flagged by Analyzer 0 % (0-5); Neutrophil # 14.06 X10^3/uL (2.7-7.7); Neutrophil % 88.9 % (47-70); Platelet Count 245 K/mm3 (150-450); RBC Distribution Width CV 14.5 % (11.6-14.6); RBC Distribution Width SD 44.8 fl (35.1-43.9); Red Blood Count 4.96 M/mm3 (4.2-5.4); White Blood Count 15.8 K/mm3 (4.4-11.0)
[2022-03-13 13:05] LABS: Anion Gap 4 (5-15); BUN 10 mg/dL (7-18); Calcium,Total 9.3 mg/dL (8.5-10.1); Chloride 106 mmol/L (98-107); EST Glomerular Filtration Rate 58 mL/min (>60); Est Glom Filt Rate - Afr Amer 71 mL/min (>60); Estimated Creatinine Clearance 40.07 ml/min; Glucose 175 mg/dL (74-106); Sodium Level 137 mmol/L (136-145); Troponin-I HS 6 pg/mL (3.0-54.0)
[2022-03-13 13:19] LABS: BNP,B-Type NATRIURETIC PEPTIDE 102.6 pg/mL (0-100)
[2022-03-13 14:27] LABS: Mucous, Urine 0 SEEN /hpf (<or=2+); Red Blood Cells-Urine 0 SEEN /hpf (0-5); Squamous Epithelial Cells - UA 0 SEEN /hpf (5-10)
[2022-03-13 14:35] LABS: Color, Urine Yellow (Yellow); Glucose, Dipstick Normal (Normal); Ketone-Dipstick Negative (Negative); Leukocyte Esterase-Dipstick 500 /ul (Negative); Nitrite-Dipstick Negative (Negative); Occult Blood-Urine 150 /ul (Negative); Protein-Dipstick 15 mg/dl (Negative); Urine Bilirubin Dipstick Negative (Negative); Urine Clarity Cloudy (Clear); Urine Urobilinogen Normal (Normal)
[2022-03-13 14:44] LABS: White Blood Cells >100 SEEN /hpf (0-5)
[2022-03-13 14:45] LABS: Bacteria 1+ /hpf (None Seen)
[2022-03-13] MEDS: levoFLOXacin 750 MG Tablet PO (15:10)
== END 2022-03-13 15:16 | disposition home or self-care (01) ==
PROVIDERS: Emergency Provider Emergency Medicine; Visit Provider Emergency Medicine
DX: J18.9 Pneumonia, unspecified organism (principal); I11.0 Hypertensive heart disease with heart failure; I50.9 Heart failure, unspecified; Z68.41 Body mass index [BMI] 40.0-44.9, adult; E11.9 Type 2 diabetes mellitus without complications; N30.00 Acute cystitis without hematuria; F41.9 Anxiety disorder, unspecified; I25.10 Atherosclerotic heart disease of native coronary artery without angina pectoris; Z87.19 Personal history of other diseases of the digestive system; I25.2 Old myocardial infarction; E78.5 Hyperlipidemia, unspecified; E66.9 Obesity, unspecified; M19.90 Unspecified osteoarthritis, unspecified site; Z87.891 Personal history of nicotine dependence; Z79.82 Long term (current) use of aspirin; Z79.899 Other long term (current) drug therapy; Z79.02 Long term (current) use of antithrombotics/antiplatelets; Z95.5 Presence of coronary angioplasty implant and graft
CPT/HCPCS: 71045; 80048; 81001; 83880; 84484; 85025; 87086; 87088; 87428; 93005; 94640; 99285; A4216

== ENCOUNTER 2022-12-09 15:33 | Emergency (ER) | payer MEDICARE, OTHER, SELFPAY ==
[2022-12-09 15:35] VITALS: BP 165/84; PULSE 65; RESP 18; TEMP 36.2; O2SAT 97; BMI 36.9
--- NOTE | 2022-12-09 15:48 | EKG12_ITS ---
Test Reason : SOB Blood Pressure : / mmHG Vent. Rate : 056 BPM Atrial Rate : 056 BPM P-R Int : 174 ms QRS Dur : 076 ms QT Int : 474 ms P-R-T Axes : 034 -09 057 degrees QTc Int : 457 ms Sinus bradycardia Otherwise normal ECG Confirmed by BRENNEN SOTO, JOSE ([id number]), acquisition editor JUSTYN PHILLIPS ([id number]) on 12/11/2022 2:33:47 PM Referred By: Confirmed By:JOSE HUTTON MD
--- NOTE | 2022-12-09 15:49 | EDS_ITS ---
HPI HPI - URI History of Present Illness Chief Complaint: Shortness of Breath Detail of Chief Complaint: Cough of white phlegm. Informant: patient Onset/Context/Timing Onset: Weeks Context: Gradual Onset Timing: Continuous Current Severity: Mild Maximum Severity: Mild Associated Symptoms Associated Symptoms: Positive for Productive Cough Narrative Narrative: 72-year-old female history of CAD, MT, CHF, coronary stents and diabetes. States she got URI symptoms since November 27 was treated with Tussin DM without any significant relief. Her primary care physician 1 to put her on antibiotic which she sent with her reflux she could not take it so never started the antibiotic. She says she she has not had any fever or chills. She at times has white productive phlegm. She had a home COVID test that was negative. She states she does get short of breath primarily supine. She denies any hemoptysis. No chest pain except with coughing. No leg swelling. Prior similar symptoms: Yes Recent Illness/Hospitalization: No ROS ROS ED ROS Narrative Cough. Shortness of breath. Review of Systems ROS Unobtainable: Denies due to encephalopathy Constitutional Constitutional ED: Denies chills or fever(s) Eyes Eyes: Denies blurry vision ENT ENT ED: Denies ear pain Cardiovascular Cardiovascular: Denies chest pain or palpitations Respiratory/Chest Respiratory/Chest: Reports cough and dyspnea Gastrointestinal Gastrointestinal: Reports diarrhea; Denies abdominal pain, constipation, melena, nausea or vomiting Musculoskeletal Musculoskeletal: Denies arthralgias Integumentary Denies abscess Neurologic Neurologic: Denies headache(s) Psychiatric Psychiatric: Denies anxiety or depression Endocrine Endocrinology: Denies cold intolerance Hematologic/Lymphatic Hematologic/Lymphatic: Denies easy bleeding or easy bruising Allergic/Immunologic Allergic/Immunologic ED: Denies mouth swelling or tongue swelling [facility] Medical History (Updated 12/09/22 @ 17:[address] Jacques Morales MD) Anxiety Atherosclerosis of coronary artery without angina pectoris Hernandez's esophagus CHF (congestive heart failure) Essential (primary) hypertension Former smoker GERD (gastroesophageal reflux disease) GI bleed History of non-ST elevation myocardial infarction (NSTEMI) (04/20/20) Hyperlipidemia Obesity Osteoarthritis Type 2 diabetes mellitus Home Medications aspirin 81 mg tablet,delayed release (Adult Aspirin Regimen) 81 mg PO DAILY [facility] 03/30/20 [History Last Taken 03/28/21] atenolol 50 mg tablet 50 mg PO DAILY blood pressure #90 tabs 08/25/20 [Rx Last Taken 03/28/21] ranolazine 500 mg tablet,extended release,12 hr (Ranexa) 500 mg PO BID #60 tabs 08/30/20 [Rx Last Taken 03/28/21] potassium 99 mg tablet 99 mg PO DAILY 09/06/20 [History Last Taken 03/13/21 07:00] ezetimibe 10 mg tablet (Zetia) 10 mg PO DAILY #30 tabs 11/26/20 [Rx Last Taken 03/13/21 07:00] furosemide 20 mg tablet 20 mg PO DAILY #90 tabs 02/01/21 [Rx Last Taken 03/12/21 10:00] isosorbide mononitrate 60 mg tablet,extended release 24 hr 60 mg PO BID #60 tabs 08/08/21 [Rx Last Taken Unknown] cholecalciferol (vitamin D3) 50 mcg (2,000 unit) capsule 50 mcg PO DAILY 09/21/21 [History Last Taken Unknown] clopidogrel 75 mg tablet (Plavix) 75 mg PO DAILY #90 tabs 10/24/21 [Rx Last Taken Unknown] pantoprazole 40 mg tablet,delayed release 40 mg PO DAILY 06/29/22 [History Last Taken Unknown] azithromycin 250 mg tablet (Zithromax Z-Glenn) 250 mg PO DAILY 4 days #4 tabs 12/09/22 [Rx Last Taken Unknown] calcium carbonate 600 mg calcium (1,500 mg) tablet (Calcium) 600 mg PO DAILY 12/09/22 [History Last Taken Unknown] dapagliflozin 10 mg tablet (Farxiga) 10 mg PO DAILY 12/09/22 [History Last Taken Unknown] enalapril maleate 10 mg tablet 10 mg PO DAILY 12/09/22 [History Last Taken Unknown] magnesium 250 mg tablet 250 mg PO DAILY 12/09/22 [History Last Taken Unknown] melatonin 5 mg tablet 5 mg PO QHS 12/09/22 [History Last Taken Unknown] Allergy/AdvReac Type Severity Reaction Status Date / Time atorvastatin Allergy Severe Other Verified 12/09/22 15:36 codeine AdvReac Diarrhea Verified 12/09/22 15:36 metformin AdvReac gi upset Verified 12/09/22 15:36 naproxen AdvReac Diarrhea Verified 12/09/22 15:36 nitrofurantoin AdvReac Nausea Verified 12/09/22 15:36 [From Macrobid] Family History Sister Myocardial infarction age 53 Cancer Sister Heart disease Myocardial infarction, Onset Age: 69 Mother Myocardial infarction, Onset Age: 63 Brother Cancer Other CAD (coronary artery disease) Surgical History History of coronary artery stent placement (04/19/20) History of left heart catheterization (03/31/21) History of open reduction and internal fixation (ORIF) procedure History of tubal ligation Social History adopted: No household members: spouse housing: house number of children: 3 current occupational status: retired current occupational exposures/hazards: No pets and animals: No leisure activities: fishing history of recent travel: No sexually active: No Smoking Status: Former smoker quit date: 10/08/77 pack-years: 6 Electronic Cigarette Use: not used alcohol intake: never seatbelt use: always do you feel safe at home: Yes EXAM Physical Exam Narrative Exam Narrative: 72-year-old female no acute distress. Vital signs stable afebrile. Pulse ox 97% on room air no signs hypoxia. H EENT exam unremarkable. Moist with membranes. Neck nontender no JVD. Lungs clear to auscultation bilaterally. Heart regular rate and rhythm rate about 65 no murmur. Abdomen soft nontender. Moving all 4 extremities. Calves are nontender without edema or cords. Neurologically she is awake and alert with no focal motor deficits. Very benign exam. Const Vital Signs: 12/09/22 15:35 12/09/22 16:01 12/09/22 16:29 Temperature 97.2 F L Temperature Source Temporal Pulse Rate 65 Respiratory Rate 18 Respiratory Effort Normal Non-Labored Short of Breath Respiratory Depth Normal Respiratory Pattern Normal Blood Pressure 165/84 H Blood Pressure Mean 111 Pulse Ox 97 97 Oxygen Delivery Method Room Air Room Air Room Air 12/09/22 16:13 12/09/22 16:31 Temperature 97.2 F L 97.2 F L Temperature Source Temporal Temporal Pulse Rate 63 55 L Respiratory Rate 17 16 Respiratory Effort Respiratory Depth Respiratory Pattern Blood Pressure 145/67 H 136/62 H Blood Pressure Mean 89 85 Pulse Ox 95 94 Oxygen Delivery Method Room Air Room Air Positive well nourished, well developed and obese; Negative for cachectic or contractures General Appearance ED: well developed and NAD; Negative for cachectic, contractures, cyanotic, diaphoretic or pallor Nutritional Appearance: obese; Negative for cachectic HEENT Reports moist mucous membranes; Denies dry mucous membranes normocephalic; Negative for atraumatic Mouth ED: No dry mucous membranes Mouth: No dry mucous membranes Teeth and Gingiva: Negative for caries Throat: posterior oropharynx normal Eyes PERRL and EOMs intact bilaterally General Eye ED: Negative for pale conjunctiva or scleral icterus Neck no lymphadenopathy, supple, no meningeal signs and no JVD General: Negative for anterior neck swelling or lymphadenopathy Resp normal respiratory effort and clear to auscultation bilaterally Effort and Inspection: Negative for retractions Auscultation: Negative for rales, rhonchi or wheezes Cardio S1 normal heart sound, S2 normal heart sound and no murmurs Rate: regular rate Rhythm: regular rhythm GI non-tender, non-distended and no masses Inspection: Negative for abdominal distention Auscultation: normoactive bowel sounds Palpation: soft; Negative for tender or guarding Back/Spine no CVA tenderness and normal ROM General Back: Negative for CVA tenderness Cervical Spine: Negative for cervical spine tenderness Thoracic Spine / Upper Back: Negative for thoracic spinal tenderness Lumbar Spine / Lower Back: Negative for lumbar spinal tenderness Sacrum: Negative for tenderness Extremity normal to inspection and full ROM General Extremety ED: Negative for cyanosis or tenderness General Extremity: Negative for cyanosis Neuro oriented x3 and CN's II-XII intact bilaterally Sensorium / Orientation: alert, oriented to person, oriented to place and oriented to time; Negative for orientation impaired, lethargic or stuporous Motor Exam: strength 5/5 throughout Psych mental status grossly normal Appearance: Negative for other Attitude: No agitated Mood & Affect: Negative for depressed Skin General Skin Exam: Negative for jaundice or pallor Lesions: no lesions Rashes: no rashes Trauma: Negative for abrasion MDM MDM MDM Narrative Medical decision making narrative: 72-year-old with shortness of breath and a cough. Benign exam. Differential includes URI, pneumonia, pleural effusion, CHF or dysrhythmia. On exam there is no obvious dysrhythmia. I do not hear pneumonia. She has equal symmetrical lung sounds. I think this is more of a URI etiology. Chest x-ray is consistent with a right lower lobe pneumonia. Patient be started on Zithromax. First dose given in ER 5 mg p.o. and 250/day for the next 4 days. I did go over the chest x-ray results with the patient. I will check her COVID PCR but that will take several hours to come back. Lab Data Attestation: I reviewed the patient's lab results. Lab results narrative: CBC shows normal white count 7.8. H&H 12.9 and 42. Platelets 269. Chemistries unremarkable. Gap at 9. Normal BUN and creatinine. Glucose 155. Chest x-ray looks like a right lower lobe pneumonia that both the radiologist and I agree with. Labs: Laboratory Results - last 24 hr 12/09/22 12/09/22 16:01 16:01 WBC 7.8 RBC 5.23 Hgb 12.9 Hct 42.1 MCV 80.5 L MCH 24.7 L MCHC 30.6 L RDW Std Deviation 42.3 RDW Coeff of Ibrahima 14.6 Plt Count 269 MPV 10.0 Immature Gran % (Auto) 0.400 Neut % (Auto) 71.9 H Lymph % (Auto) 17.3 L [place] % (Auto) 8.6 Eos % (Auto) 1.4 Baso % (Auto) 0.4 Absolute Neuts (auto) 5.6 Absolute Lymphs (auto) 1.35 Nucleated RBC % 0 Sodium 140 Potassium 3.6 Chloride 107 Carbon Dioxide 24.0 Anion Gap 9 BUN 11 Creatinine 0.97 Estim Creat Clear Calc 42.68 Est GFR (MDRD) Af Amer 73 Est GFR (MDRD) Non-Af 60 BUN/Creatinine Ratio 11.3 Glucose 155 H Calcium 8.6 Radiography Chest X-Ray - ED: 1 View, Read by ED Physician, Heart, Mediastinum, Bony Structures, Chronic Changes and Right Infiltrate Diagnostic Testing: Clinical Impression(s) from Imaging Studies Chest X-Ray 12/09/22 16:10 IMPRESSION: Mild right lower lobe airspace disease which may represent developing pneumonia. Electronically Signed: Ramon Mora MD at 16:31 EST , Chest x-ray, 2 views, AP and lateral on the AP view there is some opacity in the right lower lung which could be consistent with an infiltrate. Differential Diagnosis Differential Diagnosis: Pneumonia versus URI versus virus versus cardiac event or pulmonary edema or pleural effusion. Why less likely: Clinically sounds like bacterial respiratory infection versus a viral URI. Discharge Plan Triage Chief Complaint: Shortness of Breath ED Provider: Jacques Morales Dx/Rx/DC Orders Clinical Impression: Pneumonia, History of CAD (coronary artery disease), History of diabetes mellitus Instructions: ED Pneumonia (Adult) Prescriptions: New azithromycin [Zithromax Z-Glenn] 250 mg tablet 250 mg PO DAILY 4 Days Qty: 4 0RF Rx Instructions: start on day 2 of therapy No Action aspirin [Adult Aspirin Regimen] 81 mg tablet,delayed release (DR/EC) 81 mg PO DAILY atenolol 50 mg tablet 50 mg PO DAILY Qty: 90 3RF cholecalciferol (vitamin D3) 50 mcg (2,000 unit) capsule 50 mcg PO DAILY pantoprazole 40 mg tablet,delayed release (DR/EC) 40 mg PO DAILY Label Comments: TAKE 1 TABLET BY MOUTH TWICE DAILY potassium 99 MG tablet 99 mg PO DAILY enalapril maleate 10 mg tablet 10 mg PO DAILY Label Comments: TAKE 1 TABLET BY MOUTH ONCE DAILY calcium carbonate [Calcium 600] 600 mg calcium (1,500 mg) Tablet 600 mg PO DAILY magnesium 250 mg Tablet 250 mg PO DAILY melatonin 5 mg Tablet 5 mg PO QHS Farxiga 10 mg Tablet 10 mg PO DAILY ranolazine [Ranexa] 500 mg tablet extended release 12 hr 500 mg PO BID Qty: 60 11RF ezetimibe [Zetia] 10 mg tablet 10 mg PO DAILY Qty: 30 3RF furosemide 20 mg tablet 20 mg PO DAILY Qty: 90 3RF isosorbide mononitrate 60 mg tablet extended release 24 hr 60 mg PO BID Qty: 60 11RF clopidogrel [Plavix] 75 mg tablet 75 mg PO DAILY Qty: 90 3RF Primary Care Provider: Efrain Gibson Referrals: Efrain Gibson DO [Primary Care Provider] - 3-5 Days if not improving Activity Restrictions/Additional Instructions: Zithromax which is the antibiotic 1 pill once a day after lunch for the next 4 days starting on Sunday. Plenty of fluids and rest. Tylenol for any fever. Follow-up with your doctor if not improving. Return if worse. Disposition Disposition: Home, Self Care
[2022-12-09 16:01] VITALS: O2SAT 97
[2022-12-09 16:10] LABS: Absolute Lymphocyte Count 1.35 X10^3/uL (0.83-4.51); Absolute Neutrophil Count 5.6 X10^3/uL (2.0-7.7); Basophil# 0.03 X10^3/uL; Basophil% 0.4 % (0-1); Eosinophil# 0.11 X10^3/uL; Eosinophils% 1.4 % (0-5); Hematocrit 42.1 % (37-47); Hemoglobin 12.9 g/dL (12.0-15.0); Lymphocyte # 1.35 X10^3/ul (0.83-4.51); Lymphocyte % 17.3 % (19-41); Mean Corp Hgb Conc 30.6 g/dL (32-36); Mean Corpuscular Hgb 24.7 pg (27.0-32.0); Mean Corpuscular Volume 80.5 fL (81-99); Monocyte# 0.67 X10^3/uL; Monocyte% 8.6 % (0-10); NRBC Flagged by Analyzer 0 % (0-5); Neutrophil # 5.63 X10^3/uL (2.7-7.7); Neutrophil % 71.9 % (47-70); Platelet Count 269 K/mm3 (150-450); RBC Distribution Width CV 14.6 % (11.6-14.6); RBC Distribution Width SD 42.3 fl (35.1-43.9); Red Blood Count 5.23 M/mm3 (4.2-5.4); White Blood Count 7.8 K/mm3 (4.4-11.0)
--- NOTE | 2022-12-09 16:10 | RAD_ITS ---
EXAM: XR CHEST, 2 VIEWS CLINICAL INDICATION: cough TECHNIQUE: Frontal and lateral views of the chest. This report was created using [employer] report generation technology. COMPARISON: 03/13/2022 FINDINGS: LUNGS AND PLEURAL SPACES: There is mild right lower lobe airspace disease. No pneumothorax. No effusion. HEART: Unremarkable. Cardiac silhouette not enlarged. MEDIASTINUM: Central airways and mediastinal contour are unremarkable. BONES/JOINTS: Unremarkable. SOFT TISSUES: Unremarkable. RAD/Chest PA and Lateral IMPRESSION: Mild right lower lobe airspace disease which may represent developing pneumonia. Electronically Signed: Ramon Mora MD at 16:31 EST ,
[2022-12-09 16:13] VITALS: BP 145/67; PULSE 63; RESP 17; TEMP 36.2; O2SAT 95
[2022-12-09 16:25] LABS: Anion Gap 9 (5-15); BUN 11 mg/dL (7-18); BUN/Creat Ratio 11.3 RATIO (10-20); Calcium,Total 8.6 mg/dL (8.5-10.1); Chloride 107 mmol/L (98-107); Creatinine, Serum 0.97 mg/dL (0.55-1.02); EST Glomerular Filtration Rate 60 mL/min (>60); Est Glom Filt Rate - Afr Amer 73 mL/min (>60); Estimated Creatinine Clearance 42.68 ml/min; Glucose 155 mg/dL (74-106); Potassium 3.6 mmol/L (3.5-5.1); Sodium Level 140 mmol/L (136-145)
[2022-12-09 16:31] VITALS: BP 136/62; PULSE 55; RESP 16; TEMP 36.2; O2SAT 94
[2022-12-09 17:01] VITALS: BP 140/44; PULSE 55; RESP 20; O2SAT 94
[2022-12-09] MEDS: Azithromycin 250 MG Tablet 500 MG PO (17:12)
== END 2022-12-09 17:16 | disposition home or self-care (01) ==
PROVIDERS: Emergency Provider Emergency Medicine; Visit Provider Emergency Medicine
DX: J18.9 Pneumonia, unspecified organism (principal); I50.9 Heart failure, unspecified; E11.9 Type 2 diabetes mellitus without complications; Z95.5 Presence of coronary angioplasty implant and graft; Z87.891 Personal history of nicotine dependence; E78.5 Hyperlipidemia, unspecified; I25.10 Atherosclerotic heart disease of native coronary artery without angina pectoris; E66.9 Obesity, unspecified; R19.7 Diarrhea, unspecified; Z20.822 Contact with and (suspected) exposure to COVID-19
CPT/HCPCS: 71046; 80048; 85025; 87635; 93005; 99284; A4216; U0003; U0005

== ENCOUNTER 2022-12-23 19:48 | Emergency (ER) | payer MEDICARE, OTHER, SELFPAY ==
[2022-12-23 19:50] VITALS: BP 169/78; PULSE 62; RESP 18; TEMP 36.6; O2SAT 97; BMI 39.3
--- NOTE | 2022-12-23 20:02 | EKG12_ITS ---
Test Reason : Blood Pressure : / mmHG Vent. Rate : 059 BPM Atrial Rate : 000 BPM P-R Int : 000 ms QRS Dur : 072 ms QT Int : 448 ms P-R-T Axes : 000 004 067 degrees QTc Int : 443 ms Sinus rhythm Nonspecific ST abnormality Abnormal ECG Confirmed by JENS SOTO, SONYA ([id number]), supervising film or videotape editor JUSTYN PHILLIPS ([id number]) on 12/25/2022 9:48:37 AM Referred By: Confirmed By:RICK COLINDRES MD
--- NOTE | 2022-12-23 20:05 | EX.ED.DYSGE1 ---
HPI <AYE Myrick - Last Filed: 12/23/22 20:43> History of Present Illness Chief Complaint: Shortness of Breath Narrative Narrative: 72-year-old female with PMH of HTN, CAD with 3 stents, CHF, DM2 presents with chest pressure and cough. She states she had COVID on November 28, 2022 and her dry cough never resolved and she has exertional dyspnea. She was seen here on 12/09 and had pneumonia and was treated with a Z-Glenn. Her dry cough is never improved. Today around 11 AM she was touring a new medical facility and it was a lot of walking and she felt very short of breath with chest pressure. The pressure has improved since she has been resting but has not completely gone away. No radiation to her jaw or arms. No pain in her back or abdomen. No nausea vomiting or diaphoresis. She was a former smoker but quit decades ago. She takes aspirin and Plavix. PFS <AYE Myrick - Last Filed: 12/23/22 20:43> [facility] Medical History (Updated 12/23/22 @ 20:38 by AYE Myrick) Anxiety Atherosclerosis of coronary artery without angina pectoris Hernandez's esophagus CHF (congestive heart failure) Essential (primary) hypertension Former smoker GERD (gastroesophageal reflux disease) GI bleed History of non-ST elevation myocardial infarction (NSTEMI) (04/20/20) Hyperlipidemia Obesity Osteoarthritis Type 2 diabetes mellitus Home Medications aspirin 81 mg tablet,delayed release (Adult Aspirin Regimen) 81 mg PO DAILY heart health 03/30/20 [History Last Taken 03/28/21] atenolol 50 mg tablet 50 mg PO DAILY blood pressure #90 tabs 08/25/20 [Rx Last Taken 03/28/21] ranolazine 500 mg tablet,extended release,12 hr (Ranexa) 500 mg PO BID #60 tabs 08/30/20 [Rx Last Taken 03/28/21] potassium 99 mg tablet 99 mg PO DAILY 09/06/20 [History Last Taken 03/13/21 07:00] ezetimibe 10 mg tablet (Zetia) 10 mg PO DAILY #30 tabs 11/26/20 [Rx Last Taken 03/13/21 07:00] furosemide 20 mg tablet 20 mg PO DAILY #90 tabs 04/27/21 [Rx Last Taken 03/12/21 10:00] isosorbide mononitrate 60 mg tablet,extended release 24 hr 60 mg PO BID #60 tabs 08/08/21 [Rx Last Taken Unknown] cholecalciferol (vitamin D3) 50 mcg (2,000 unit) capsule 50 mcg PO DAILY 09/21/21 [History Last Taken Unknown] pantoprazole 40 mg tablet,delayed release 40 mg PO DAILY 06/29/22 [History Last Taken Unknown] azithromycin 250 mg tablet (Zithromax Z-Glenn) 250 mg PO DAILY 4 days #4 tabs 12/09/22 [Rx Last Taken Unknown] calcium carbonate 600 mg calcium (1,500 mg) tablet (Calcium) 600 mg PO DAILY 12/09/22 [History Last Taken Unknown] dapagliflozin 10 mg tablet (Farxiga) 10 mg PO DAILY 12/09/22 [History Last Taken Unknown] enalapril maleate 10 mg tablet 10 mg PO DAILY 12/09/22 [History Last Taken Unknown] magnesium 250 mg tablet 250 mg PO DAILY 12/09/22 [History Last Taken Unknown] melatonin 5 mg tablet 5 mg PO QHS 12/09/22 [History Last Taken Unknown] clopidogrel 75 mg tablet (Plavix) 75 mg PO DAILY #90 tabs 12/21/22 [Rx Last Taken Unknown] Allergy/AdvReac Type Severity Reaction Status Date / Time atorvastatin Allergy Severe Other Verified 12/23/22 19:50 codeine AdvReac Diarrhea Verified 12/23/22 19:50 metformin AdvReac gi upset Verified 12/23/22 19:50 naproxen AdvReac Diarrhea Verified 12/23/22 19:50 nitrofurantoin AdvReac Nausea Verified 12/23/22 19:50 [From Macrobid] Family History Sister Myocardial infarction age 53 Cancer Sister Heart disease Myocardial infarction, Onset Age: 69 Mother Myocardial infarction, Onset Age: 63 Brother Cancer Other CAD (coronary artery disease) Surgical History History of coronary artery stent placement (04/19/20) History of left heart catheterization (03/31/21) History of open reduction and internal fixation (ORIF) procedure History of tubal ligation Social History adopted: No household members: spouse housing: house number of children: 3 current occupational status: retired current occupational exposures/hazards: No pets and animals: No leisure activities: fishing history of recent travel: No sexually active: No Smoking Status: Former smoker quit date: 10/08/77 pack-years: 6 Electronic Cigarette Use: not used alcohol intake: never seatbelt use: always do you feel safe at home: Yes ROS <AYE Myrick - Last Filed: 12/23/22 20:43> ROS ED ROS Narrative Constitutional: Negative for fever, chills, malaise. CVS: Positive for chest pain. Negative for palpitations, syncope. Respiratory: Positive for shortness of breath, cough. Negative for orthopnea. GI: Negative for abdominal pain, nausea, vomiting. EXAM <AYE Myrick - Last Filed: 12/23/22 20:43> Physical Exam Narrative Exam Narrative: CONST: Patient sitting in no acute distress. EYES: Normal inspection. NECK: Normal inspection. RESP: No respiratory distress, CTAB. CVS: Regular rate and rhythm, no murmur, no gallop. ABD: Soft and nontender, no guarding or rebound, nondistended. SKIN: Color normal, no rash, warm, dry, intact. EXTREMITIES: Normal appearance, 1+ pitting edema both ankles (chronic). NEURO: Oriented x4. PSYCH: Normal affect. Const Vital Signs: 12/23/22 19:50 12/23/22 20:09 12/23/22 20:20 Temperature 98 F Temperature Source Temporal Pulse Rate 62 Respiratory Rate 18 Respiratory Effort Short of Breath Respiratory Depth Normal Respiratory Pattern Normal Blood Pressure 169/78 H Blood Pressure Mean 108 Pulse Ox 97 Oxygen Delivery Method Room Air Room Air Room Air 12/23/22 20:43 Temperature Temperature Source Pulse Rate 63 Respiratory Rate 19 H Respiratory Effort Respiratory Depth Respiratory Pattern Blood Pressure 149/63 H Blood Pressure Mean Pulse Ox 97 Oxygen Delivery Method <Moshe Jackson MD - Last Filed: 12/23/22 20:54> Physical Exam Const Vital Signs: 12/23/22 19:50 12/23/22 20:09 12/23/22 20:20 Temperature 98 F Temperature Source Temporal Pulse Rate 62 Respiratory Rate 18 Respiratory Effort Short of Breath Respiratory Depth Normal Respiratory Pattern Normal Blood Pressure 169/78 H Blood Pressure Mean 108 Pulse Ox 97 Oxygen Delivery Method Room Air Room Air Room Air 12/23/22 20:43 Temperature Temperature Source Pulse Rate 63 Respiratory Rate 19 H Respiratory Effort Respiratory Depth Respiratory Pattern Blood Pressure 149/63 H Blood Pressure Mean Pulse Ox 97 Oxygen Delivery Method MDM <AYE Myrick - Last Filed: 12/23/22 20:43> [facility] Narrative Medical decision making narrative: History gathered from: Patient and Patient has had a residual dry cough and exertional dyspnea since having COVID in November 2022. She was also treated with a Z-Glenn for pneumonia in early December. Today after extended walking she had chest pressure and dyspnea that is resolving with rest but not completely gone. She appears well and nontoxic. BP 169/78 with otherwise normal vital signs. Her exam is unremarkable. With her cardiac history labs and enzymes will be obtained to rule out ACS. EKG appears to be sinus rhythm at 59 bpm with no acute ST changes. CBC and BMP are unremarkable. High-sensitivity troponin is 10. With her pain starting about 9 hours ago 1 troponin rules out ACS. Radiologist read her CXR as bibasilar infiltrates however on ED attending interpretation review the right basilar infiltrate actually looks improved. I think her symptoms are lingering from COVID/pneumonia and we discussed her cough can last for over a month. She has Tussin DM she will start using again at home and will follow-up with her primary care doctor. If symptoms worsen return to the ER. Differential: Pneumonia, post pneumonia cough, ACS History & Record Review Discussion w/independent historian: Patient and Family Lab Data Attestation: I reviewed the patient's lab results. Labs: Laboratory Results - last 24 hr 12/23/22 12/23/22 20:06 20:06 WBC 6.2 RBC 4.76 Hgb 12.0 Hct 38.8 MCV 81.5 MCH 25.2 L MCHC 30.9 L RDW Std Deviation 43.3 RDW Coeff of Ibrahima 14.6 Plt Count 307 MPV 9.5 Immature Gran % (Auto) 0.200 Neut % (Auto) 62.4 Lymph % (Auto) 23.0 [place] % (Auto) 10.1 H Eos % (Auto) 3.7 Baso % (Auto) 0.6 Absolute Neuts (auto) 3.9 Absolute Lymphs (auto) 1.43 Nucleated RBC % 0 Sodium 143 Potassium 3.5 Chloride 109 H Carbon Dioxide 25.0 Anion Gap 9 BUN 17 Creatinine 1.07 H Estim Creat Clear Calc 36.92 Est GFR (MDRD) Af Amer 65 Est GFR (MDRD) Non-Af 54 L BUN/Creatinine Ratio 15.9 Glucose 171 H Calcium 8.6 Troponin I High Sens 10 Radiography Diagnostic Testing: Clinical Impression(s) from Imaging Studies Chest X-Ray 12/23/22 20:11 IMPRESSION: There is bilateral basilar infiltrate / atelectasis. This is unchanged. Electronically Signed: Hiram Garrido MD at 20:22 EDT , ED attending interpretation of chest x-ray shows normal heart size, improvement/resolution of the right basilar infiltrate from previous. EKG Initial EKG: Attestation: I personally reviewed and interpreted this EKG as follows: Interpretation: Sinus Rhythm Comments: Sinus rhythm at 59 bpm, no ectopy or acute ischemic changes Machine read as junctional rhythm but there are P waves noted <Moshe Jackson MD - Last Filed: 12/23/22 20:54> [facility] MDM Narrative Medical decision making narrative: History gathered from: Patient and Patient has had a residual dry cough and exertional dyspnea since having COVID in November 2022. She was also treated with a Z-Glenn for pneumonia in early December. Today after extended walking she had chest pressure and dyspnea that is resolving with rest but not completely gone. She appears well and nontoxic. BP 169/78 with otherwise normal vital signs. Her exam is unremarkable. With her cardiac history labs and enzymes will be obtained to rule out ACS. EKG appears to be sinus rhythm at 59 bpm with no acute ST changes. This was interpreted by ED physician. CBC and BMP are unremarkable. High-sensitivity troponin is 10. With her pain starting about 9 hours ago 1 troponin rules out ACS. Radiologist read her CXR as bibasilar infiltrates however on ED attending interpretation review the right basilar infiltrate actually looks improved. I think her symptoms are lingering from COVID/pneumonia and we discussed her cough can last for over a month. She has Tussin DM she will start using again at home and will follow-up with her primary care doctor. If symptoms worsen return to the ER. Differential: Pneumonia, post pneumonia cough, ACS I have personally performed a face to face assessment of the patient and have reviewed the REYNA Note. I performed a substantive portion of the visit including all aspects of the following. My peguero findings include: History is continued cough, shortness of breath, with history of pneumonia diagnosed on 12/09/2022, approximately 2 weeks ago. Exam is afebrile. Vital signs noted. Regular rate and rhythm. Lungs clear to auscultation bilaterally. Abdomen soft and nontender. Medical Decision Making I reviewed the patient's were prior ED visit. She had a right lower lobe pneumonia which was treated with azithromycin. Comprehensive work-up was pursued today. EKG interpreted by myself shows normal sinus rhythm at 59 bpm without ectopy or acute ST changes, no STEMI. I interpreted her chest x-ray as improvement of her right lower lobe pneumonia. Radiologist read it as bibasilar atelectasis versus infiltrate. I do not feel further antibiotics are indicated. She has a negative troponin which is greater than 6 hours. Her EKG does not show ischemic changes. She will continue her [id number] medications for her cough and follow-up with her primary care provider. Pulse ox normal on room air. Disposition is discharged home in stable condition. Other additions or changes: [None] History & Record Review Additional record(s) reviewed:: Prior ED visit Lab Data Labs: Laboratory Results - last 24 hr 12/23/22 12/23/22 20:06 20:06 WBC 6.2 RBC 4.76 Hgb 12.0 Hct 38.8 MCV 81.5 MCH 25.2 L MCHC 30.9 L RDW Std Deviation 43.3 RDW Coeff of Ibrahima 14.6 Plt Count 307 MPV 9.5 Immature Gran % (Auto) 0.200 Neut % (Auto) 62.4 Lymph % (Auto) 23.0 [place] % (Auto) 10.1 H Eos % (Auto) 3.7 Baso % (Auto) 0.6 Absolute Neuts (auto) 3.9 Absolute Lymphs (auto) 1.43 Nucleated RBC % 0 Sodium 143 Potassium 3.5 Chloride 109 H Carbon Dioxide 25.0 Anion Gap 9 BUN 17 Creatinine 1.07 H Estim Creat Clear Calc 36.92 Est GFR (MDRD) Af Amer 65 Est GFR (MDRD) Non-Af 54 L BUN/Creatinine Ratio 15.9 Glucose 171 H Calcium 8.6 Troponin I High Sens 10 Radiography Diagnostic Testing: Clinical Impression(s) from Imaging Studies Chest X-Ray 12/23/22 20:11 IMPRESSION: There is bilateral basilar infiltrate / atelectasis. This is unchanged. Electronically Signed: Hiram Garrido MD at 20:22 EDT , Discharge Plan Triage Chief Complaint: Shortness of Breath Other Complaint: Cough ED Midlevel Provider: Paulette Fontana ED Provider: Moshe Jackson Dx/Rx/DC Orders Clinical Impression: Cough, persistent, Chest pain Instructions: ED Chest Pain, Noncardiac, ED Cough Chronic Uncertain Cause Adult Prescriptions: No Action aspirin [Adult Aspirin Regimen] 81 mg tablet,delayed release (DR/EC) 81 mg PO DAILY atenolol 50 mg tablet 50 mg PO DAILY Qty: 90 3RF cholecalciferol (vitamin D3) 50 mcg (2,000 unit) capsule 50 mcg PO DAILY pantoprazole 40 mg tablet,delayed release (DR/EC) 40 mg PO DAILY Label Comments: TAKE 1 TABLET BY MOUTH TWICE DAILY potassium 99 MG tablet 99 mg PO DAILY enalapril maleate 10 mg tablet 10 mg PO DAILY Label Comments: TAKE 1 TABLET BY MOUTH ONCE DAILY calcium carbonate [Calcium 600] 600 mg calcium (1,500 mg) Tablet 600 mg PO DAILY magnesium 250 mg Tablet 250 mg PO DAILY melatonin 5 mg Tablet 5 mg PO QHS Farxiga 10 mg Tablet 10 mg PO DAILY azithromycin [Zithromax Z-Glenn] 250 mg tablet 250 mg PO DAILY 4 Days Qty: 4 0RF Rx Instructions: start on day 2 of therapy ranolazine [Ranexa] 500 mg tablet extended release 12 hr 500 mg PO BID Qty: 60 11RF ezetimibe [Zetia] 10 mg tablet 10 mg PO DAILY Qty: 30 3RF furosemide 20 mg tablet 20 mg PO DAILY Qty: 90 3RF isosorbide mononitrate 60 mg tablet extended release 24 hr 60 mg PO BID Qty: 60 11RF clopidogrel [Plavix] 75 mg tablet 75 mg PO DAILY Qty: 90 3RF Primary Care Provider: Efrain Gibson Referrals: Efrain Gibson, [Primary Care Provider] - Activity Restrictions/Additional Instructions: The cough from pneumonia can last over a month. Your chest x-ray looks improved from previous. I would take the Tussin cough medication you have at home and follow-up with your primary care doctor. If symptoms worsen come back to the emergency room. Disposition Disposition: Home, Self Care Discharge Date/Time: 12/23/22 20:48
--- NOTE | 2022-12-23 20:11 | RAD_ITS ---
EXAM: XR CHEST, 1 VIEW CLINICAL INDICATION: chest pain TECHNIQUE: Frontal view of the chest. This report was created using [employer] report generation technology. COMPARISON: 12.09.22 FINDINGS: LUNGS AND PLEURAL SPACES: There is bilateral basilar infiltrate / atelectasis. This is unchanged. No pneumothorax. No effusion. HEART: Unremarkable. Cardiac silhouette not enlarged. MEDIASTINUM: Central airways and mediastinal contour are unremarkable. BONES/JOINTS: Healed right rib fractures. SOFT TISSUES: Unremarkable. RAD/Chest 1 View (Portable) IMPRESSION: There is bilateral basilar infiltrate / atelectasis. This is unchanged. Electronically Signed: Hiram Garrido MD at 20:22 EDT ,
[2022-12-23] MEDS: Aspirin 81 MG TAB.CHEW 324 MG PO (20:16)
[2022-12-23 20:20] VITALS: O2SAT 98
[2022-12-23 20:28] LABS: Absolute Lymphocyte Count 1.43 X10^3/uL (0.83-4.51); Absolute Neutrophil Count 3.9 X10^3/uL (2.0-7.7); Basophil# 0.04 X10^3/uL; Basophil% 0.6 % (0-1); Eosinophil# 0.23 X10^3/uL; Eosinophils% 3.7 % (0-5); Hematocrit 38.8 % (37-47); Lymphocyte # 1.43 X10^3/ul (0.83-4.51); Mean Corp Hgb Conc 30.9 g/dL (32-36); Mean Corpuscular Hgb 25.2 pg (27.0-32.0); Mean Corpuscular Volume 81.5 fL (81-99); Mean Platelet Vol. 9.5 fl (6.2-12.0); Monocyte# 0.63 X10^3/uL; Monocyte% 10.1 % (0-10); NRBC Flagged by Analyzer 0 % (0-5); Neutrophil # 3.87 X10^3/uL (2.7-7.7); Neutrophil % 62.4 % (47-70); Platelet Count 307 K/mm3 (150-450); RBC Distribution Width CV 14.6 % (11.6-14.6); RBC Distribution Width SD 43.3 fl (35.1-43.9); Red Blood Count 4.76 M/mm3 (4.2-5.4); White Blood Count 6.2 K/mm3 (4.4-11.0)
[2022-12-23 20:31] LABS: Anion Gap 9 (5-15); BUN 17 mg/dL (7-18); BUN/Creat Ratio 15.9 RATIO (10-20); Calcium,Total 8.6 mg/dL (8.5-10.1); Chloride 109 mmol/L (98-107); Creatinine, Serum 1.07 mg/dL (0.55-1.02); EST Glomerular Filtration Rate 54 mL/min (>60); Est Glom Filt Rate - Afr Amer 65 mL/min (>60); Estimated Creatinine Clearance 36.92 ml/min; Glucose 171 mg/dL (74-106); Potassium 3.5 mmol/L (3.5-5.1); Sodium Level 143 mmol/L (136-145); Troponin-I HS (w/2H Reflex) 10 pg/mL (3.0-54.0)
[2022-12-23 20:43] VITALS: BP 149/63; PULSE 63; RESP 19; O2SAT 97
[2022-12-23 22:10] LABS: Reflex Troponin-HS? (from REC) Y
== END 2022-12-23 20:48 | disposition home or self-care (01) ==
PROVIDERS: Physician Assistant; Emergency Provider Emergency Medicine; Visit Provider Emergency Medicine
DX: R05.3 Chronic cough (principal); I11.0 Hypertensive heart disease with heart failure; I50.9 Heart failure, unspecified; E11.9 Type 2 diabetes mellitus without complications; E78.5 Hyperlipidemia, unspecified; Z87.891 Personal history of nicotine dependence; I25.10 Atherosclerotic heart disease of native coronary artery without angina pectoris; R07.9 Chest pain, unspecified
CPT/HCPCS: 71045; 80048; 84484; 85025; 93005; 99285; A4216

== ENCOUNTER 2023-08-13 12:33 | Emergency (ER) | payer MEDICARE, OTHER, SELFPAY ==
[2023-08-13 12:33] VITALS: BP 162/85
[2023-08-13 12:34] VITALS: PULSE 60; RESP 14; TEMP 36.4; O2SAT 97; BMI 39.2
--- NOTE | 2023-08-13 13:27 | EKG12_ITS ---
Test Reason : CP Blood Pressure : / mmHG Vent. Rate : 053 BPM Atrial Rate : 053 BPM P-R Int : 174 ms QRS Dur : 078 ms QT Int : 456 ms P-R-T Axes : 022 -13 046 degrees QTc Int : 427 ms Sinus bradycardia Minimal voltage criteria for LVH, may be normal variant ( R in aVL ) Borderline ECG Confirmed by JENS SOTO, SONYA ([id number]), development editor JUSTYN PHILLIPS ([id number]) on 08/20/2023 10:09:11 AM Referred By: ARELIS/SHAVON Confirmed By:RICK COILNDRES MD
[2023-08-13 13:37] VITALS: BP 149/68; PULSE 54; RESP 16; O2SAT 95
[2023-08-13 13:38] LABS: Absolute Lymphocyte Count 2.08 X10^3/uL (0.83-4.51); Absolute Neutrophil Count 5.1 X10^3/uL (2.0-7.7); Basophil# 0.05 X10^3/uL; Basophil% 0.6 % (0-1); Eosinophil# 0.15 X10^3/uL; Eosinophils% 1.8 % (0-5); Hematocrit 43.1 % (37-47); Hemoglobin 12.5 g/dL (12.0-15.0); Lymphocyte # 2.08 X10^3/ul (0.83-4.51); Lymphocyte % 25.3 % (19-41); Mean Corpuscular Hgb 22.9 pg (27.0-32.0); Mean Corpuscular Volume 78.9 fL (81-99); Mean Platelet Vol. 9.7 fl (6.2-12.0); Monocyte# 0.77 X10^3/uL; Monocyte% 9.4 % (0-10); NRBC Flagged by Analyzer 0 % (0-5); Neutrophil # 5.13 X10^3/uL (2.7-7.7); Neutrophil % 62.5 % (47-70); POSITIVE MORPHOLOGY YES; Platelet Count 317 K/mm3 (150-450); RBC Distribution Width SD 61.1 fl (35.1-43.9); Red Blood Count 5.46 M/mm3 (4.2-5.4); White Blood Count 8.2 K/mm3 (4.4-11.0)
[2023-08-13 13:41] LABS: Differential Indicated SCAN CRITERIA MET
--- NOTE | 2023-08-13 13:43 | RAD_ITS ---
STUDY: X-RAY CHEST REASON FOR EXAM: Female, 72 years old. Chest pain TECHNIQUE: Single AP portable view of the chest. COMPARISON: None. FINDINGS: EKG electrodes are seen. The lungs are clear and expanded. There is no demonstrated pleural abnormality. Normal size heart. Normal mediastinum and edison. Normal visualized pulmonary arteries. There is atherosclerotic calcification of the aortic arch with tortuosity. There are diffuse degenerative changes of the visualized thoracic spine. Normal visualized ribs, clavicles, and shoulders. There is no demonstrated abnormality of the visualized soft tissue structures of the upper abdomen. RAD/Chest 1 View (Portable) IMPRESSION: No acute abnormality is seen. Electronically Signed: Kevin Abraham MD at 13:59 EST ,
[2023-08-13 13:56] LABS: Anion Gap 5 (5-15); BUN 17 mg/dL (7-18); BUN/Creat Ratio 15.9 RATIO (10-20); Calcium,Total 9.4 mg/dL (8.5-10.1); Chloride 105 mmol/L (98-107); Creatinine, Serum 1.07 mg/dL (0.55-1.02); EST Glomerular Filtration Rate 54 mL/min (>60); Est Glom Filt Rate - Afr Amer 65 mL/min (>60); Estimated Creatinine Clearance 36.92 ml/min; Glucose 83 mg/dL (74-106); Sodium Level 139 mmol/L (136-145); Troponin-I HS (w/2H Reflex) 10 pg/mL (3.0-54.0)
[2023-08-13 14:17] LABS: Anisocytosis 1+
--- NOTE | 2023-08-13 14:18 | ED.VIS.CHEST ---
HPI <AYE Huerta - Last Filed: 08/13/23 16:03> History of Present Illness Chief Complaint: Chest Pain Narrative Narrative: Patient presenting today with aching and intermittent left-sided chest pain that she has had since about 1 AM this morning. She reports that it woke her up in her sleep, she reports that her pain has now resolved. She reports that she has been getting intermittent chest pain on and off over the past few days, nothing seems to make her symptoms better or worse, they are not worsened with exertion. She reports that given the duration of her symptoms today, she wanted to be evaluated. She is a past medical history of hypertension, CAD with stent placement, diabetes mellitus, CHF, Hernandez's esophagus, and hyperlipidemia. She reports chronic shortness of breath on exertion that has not been worse. She denies any history of blood clots, recent surgery/procedure/travel/immobilization. [facility] <AYE Huerta - Last Filed: 08/13/23 16:03> [facility] Medical History Anxiety Atherosclerosis of coronary artery without angina pectoris Hernandez's esophagus CHF (congestive heart failure) Essential (primary) hypertension Former smoker GERD (gastroesophageal reflux disease) GI bleed History of non-ST elevation myocardial infarction (NSTEMI) (04/20/20) Hyperlipidemia Obesity Osteoarthritis Type 2 diabetes mellitus Home Medications aspirin 81 mg tablet,delayed release (Adult Aspirin Regimen) 81 mg PO DAILY heart health 03/30/20 [History Last Taken 03/28/21] atenolol 50 mg tablet 50 mg PO DAILY blood pressure #90 tabs 08/25/20 [Rx Last Taken 03/28/21] ranolazine 500 mg tablet,extended release,12 hr (Ranexa) 500 mg PO BID #60 tabs 08/30/20 [Rx Last Taken 03/28/21] potassium 99 mg tablet 99 mg PO DAILY 09/06/20 [History Last Taken 03/13/21 07:00] ezetimibe 10 mg tablet (Zetia) 10 mg PO DAILY #30 tabs 11/26/20 [Rx Last Taken 03/13/21 07:00] furosemide 20 mg tablet 20 mg PO DAILY #90 tabs 02/01/21 [Rx Last Taken 06/05/21 10:00] isosorbide mononitrate 60 mg tablet,extended release 24 hr 60 mg PO BID #60 tabs 08/08/21 [Rx Last Taken Unknown] cholecalciferol (vitamin D3) 50 mcg (2,000 unit) capsule 50 mcg PO DAILY 09/21/21 [History Last Taken Unknown] pantoprazole 40 mg tablet,delayed release 40 mg PO DAILY 06/29/22 [History Last Taken Unknown] azithromycin 250 mg tablet (Zithromax Z-Glenn) 250 mg PO DAILY 4 days #4 tabs 12/09/22 [Rx Last Taken Unknown] calcium carbonate 600 mg calcium (1,500 mg) tablet (Calcium) 600 mg PO DAILY 12/09/22 [History Last Taken Unknown] dapagliflozin propanediol 10 mg tablet (Farxiga) 10 mg PO DAILY 12/09/22 [History Last Taken Unknown] enalapril maleate 10 mg tablet 10 mg PO DAILY 12/09/22 [History Last Taken Unknown] magnesium 250 mg tablet 250 mg PO DAILY 12/09/22 [History Last Taken Unknown] melatonin 5 mg tablet 5 mg PO QHS 12/09/22 [History Last Taken Unknown] clopidogrel 75 mg tablet (Plavix) 75 mg PO DAILY #90 tabs 12/21/22 [Rx Last Taken Unknown] Allergy/AdvReac Type Severity Reaction Status Date / Time atorvastatin Allergy Severe Other Verified 08/13/23 12:35 codeine AdvReac Diarrhea Verified 08/13/23 12:35 metformin AdvReac gi upset Verified 08/13/23 12:35 naproxen AdvReac Diarrhea Verified 08/13/23 12:35 nitrofurantoin AdvReac Nausea Verified 08/13/23 12:35 [From Macrobid] Family History Sister Myocardial infarction age 53 Cancer Sister Heart disease Myocardial infarction, Onset Age: 69 Mother Myocardial infarction, Onset Age: 63 Brother Cancer Other CAD (coronary artery disease) Surgical History History of coronary artery stent placement (04/19/20) History of left heart catheterization (03/31/21) History of open reduction and internal fixation (ORIF) procedure History of tubal ligation Social History adopted: No household members: spouse housing: house number of children: 3 current occupational status: retired current occupational exposures/hazards: No pets and animals: No leisure activities: fishing history of recent travel: No sexually active: No Smoking Status: Former smoker quit date: 10/08/77 pack-years: 6 Electronic Cigarette Use: not used alcohol intake: never seatbelt use: always do you feel safe at home: Yes ROS <AYE Huerta - Last Filed: 08/13/23 16:03> ROS ED Constitutional Constitutional ED: Denies chills or fever(s) Cardiovascular Cardiovascular: Reports chest pain; Denies palpitations or racing heartbeat Respiratory/Chest Respiratory/Chest: Reports dyspnea on exertion; Denies cough or dyspnea Gastrointestinal Gastrointestinal: Denies abdominal pain, nausea or vomiting Genitourinary Genitourinary ED: Denies dysuria, hematuria or urinary urgency Musculoskeletal Musculoskeletal: Denies arthralgias or myalgias Integumentary Denies rash Neurologic Neurologic: Denies weakness EXAM <AYE Huerta - Last Filed: 08/13/23 16:03> Physical Exam Const Vital Signs: 08/13/23 12:34 08/13/23 12:33 08/13/23 13:37 Temperature 97.6 F L Temperature Source Temporal Pulse Rate 60 Respiratory Rate 14 Respiratory Pattern Blood Pressure 162/85 H Blood Pressure Mean 110 Pulse Ox 97 Oxygen Delivery Method Room Air Room Air 08/13/23 13:37 08/13/23 13:37 08/13/23 14:40 Temperature Temperature Source Pulse Rate 54 L 68 Respiratory Rate 16 16 Respiratory Pattern Normal Blood Pressure 149/68 H 149/72 H Blood Pressure Mean 95 97 Pulse Ox 95 98 Oxygen Delivery Method Room Air Positive well nourished, well developed and no apparent distress General Appearance ED: well developed HEENT Reports normocephalic and head/scalp atraumatic Mouth ED: Yes moist mucous membranes normal Eyes PERRL and EOMs intact bilaterally Neck full ROM and supple Chest Wall inspection of chest normal Resp normal respiratory effort and clear to auscultation bilaterally Cardio regular rate and regular rhythm GI soft to palpation, non-tender, non-distended and no masses Back/Spine normal ROM and normal to inspection Extremity normal to inspection and full ROM Neuro oriented x3, CN's II-XII intact bilaterally, moves all extremities, no focal motor deficits and no sensory deficits noted Sensorium / Orientation: awake and alert Psych mental status grossly normal and thought process normal Skin no rashes or lesions noted and no wounds <Dr. Richard Lara, DO - Last Filed: 08/13/23 14:54> Physical Exam Const Vital Signs: 08/13/23 12:34 08/13/23 12:33 08/13/23 13:37 Temperature 97.6 F L Temperature Source Temporal Pulse Rate 60 Respiratory Rate 14 Respiratory Pattern Blood Pressure 162/85 H Blood Pressure Mean 110 Pulse Ox 97 Oxygen Delivery Method Room Air Room Air 08/13/23 13:37 08/13/23 13:37 08/13/23 14:40 Temperature Temperature Source Pulse Rate 54 L 68 Respiratory Rate 16 16 Respiratory Pattern Normal Blood Pressure 149/68 H 149/72 H Blood Pressure Mean 95 97 Pulse Ox 95 98 Oxygen Delivery Method Room Air <AYE Huerta - Last Filed: 08/13/23 16:03> Heart Score Score: 4 <Dr. Richard Lara, DO - Last Filed: 08/13/23 14:54> Heart Score History: Slightly/Non-Suspicious ECG: Normal Age: >/= 65 years Risk Factors: >/= 3 Risk Factors or History of CAD Troponin: </= Normal Limit Score: 4 MDM <AYE Huerta - Last Filed: 08/13/23 16:03> [facility] Narrative Medical decision making narrative: Patient presenting due to left-sided intermittent aching chest pain that she has had since 1 AM. She has had intermittent symptoms over the past week. She reports that her symptoms have resolved since being here in the ED. Given her cardiac history, labs will be obtained to rule out ACS, leukocytosis, anemia, electrolyte abnormality, and BERNADINE. Troponin is WNL, labs overall are unremarkable. She is not feeling short of breath, she has a Wells score of 0. Chest x-ray negative for any acute cardiopulmonary abnormality. She last had a cardiac stress test in March 2021, I do recommend that she has this obtained as an outpatient. 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 She will be discharged home in stable condition and is comfortable with plan. She has been given strict return instructions. Lab Data Attestation: I reviewed the patient's lab results. Lab results narrative: Creatinine 1.07, GFR 54 Labs: Laboratory Results - last 24 hr 08/13/23 13:30 WBC 8.2 RBC 5.46 H Hgb 12.5 Hct 43.1 MCV 78.9 L MCH 22.9 L MCHC 29.0 L RDW Std Deviation 61.1 H RDW Coeff of Ibrahima 22.0 H Plt Count 317 MPV 9.7 Immature Gran % (Auto) 0.400 Neut % (Auto) 62.5 Lymph % (Auto) 25.3 [place] % (Auto) 9.4 Eos % (Auto) 1.8 Baso % (Auto) 0.6 Absolute Neuts (auto) 5.1 Absolute Lymphs (auto) 2.08 Nucleated RBC % 0 Anisocytosis 1+ Sodium 139 Potassium 4.0 Chloride 105 Carbon Dioxide 29.0 Anion Gap 5 BUN 17 Creatinine 1.07 H Estim Creat Clear Calc 36.92 Est GFR (MDRD) Af Amer 65 Est GFR (MDRD) Non-Af 54 L BUN/Creatinine Ratio 15.9 Glucose 83 Calcium 9.4 Troponin I High Sens 10 Radiography X-Ray: Read by ED Physician and Read by Radiologist Diagnostic Testing: Clinical Impression(s) from Imaging Studies Chest X-Ray 08/13/23 13:43 IMPRESSION: No acute abnormality is seen. Electronically Signed: Kevin Abraham MD at 13:59 EST Reading Location ID and State: [address] [place] [address] , Service support , EKG Initial EKG: Comments: Sinus bradycardia cardia, 53 bpm, no ST elevation, reviewed and interpreted by attending ED physician. <Dr. Richard Lara, DO - Last Filed: 08/13/23 14:54> [facility] Lab Data Labs: Laboratory Results - last 24 hr 08/13/23 13:30 WBC 8.2 RBC 5.46 H Hgb 12.5 Hct 43.1 MCV 78.9 L MCH 22.9 L MCHC 29.0 L RDW Std Deviation 61.1 H RDW Coeff of [place]brah[place] 22.0 H Plt Count 317 MPV 9.7 Immature Gran % (Auto) 0.400 Neut % (Auto) 62.5 Lymph % (Auto) 25.3 [place] % (Auto) 9.4 Eos % (Auto) 1.8 Baso % (Auto) 0.6 Absolute Neuts (auto) 5.1 Absolute Lymphs (auto) 2.08 Nucleated RBC % 0 Anisocytosis 1+ Sodium 139 Potassium 4.0 Chloride 105 Carbon Dioxide 29.0 Anion Gap 5 BUN 17 Creatinine 1.07 H Estim Creat Clear Calc 36.92 Est GFR (MDRD) Af Amer 65 Est GFR (MDRD) Non-Af 54 L BUN/Creatinine Ratio 15.9 Glucose 83 Calcium 9.4 Troponin I High Sens 10 Radiography Chest X-Ray - ED: 1 View, Read by ED Physician, Read by Radiologist and No Acute Disease Diagnostic Testing: Clinical Impression(s) from Imaging Studies Chest X-Ray 08/13/23 13:43 IMPRESSION: No acute abnormality is seen. Electronically Signed: Kevin Abraham MD at 13:59 EST , Treatment and Re-Evaluation :: I have personally performed a face to face assessment of the patient and have reviewed the REYNA Note. I performed a substantive portion of the visit including all aspects of the following. My peguero findings include: History: Patient presents with chest pain that has been constant since 1 AM today (approximately 13 hours prior to arrival). Patient states her pain is over the left upper chest. Patient states it has been constant but waxing and waning throughout the day today. Patient describes it as aching. Patient states nothing makes it better nothing makes it worse. Patient admits to some shortness of breath with it. Patient also has a history of Hernandez's esophagus and has had acid reflux with it. Patient denies any nausea or vomiting. Patient denies any diaphoresis. Exam: Vital signs are stable. Patient is afebrile. Patient is in no acute distress. Oral mucosa is pink and moist. Neck is supple. Trachea is midline. There is no JVD. Heart was regular rate and rhythm. Lungs are clear and equal bilaterally. There is no tenderness over the anterior chest wall. There is no edema or ecchymosis noted. Abdomen is soft. Bowel sounds are normal. There is no tenderness. Cranial nerves II through XII are intact. There are no focal motor or sensory deficits noted. Medical Decision Making: Differential diagnosis includes coronary artery disease, cardiac ischemia, cardiac dysrhythmia, pneumonia, pneumothorax, gastroesophageal reflux disease, and anxiety. Patient has a Wells score of 0. I do not think this is from a pulmonary embolism. EKG will be obtained to assess for cardiac dysrhythmia and cardiac ischemia. Chest x-ray will be obtained to assess for pneumonia and pneumothorax. CBC will be obtained to assess for leukocytosis and anemia. Basic metabolic profile will be obtained to assess for electrolyte abnormality and renal function. High-sensitivity troponin will be obtained to assess for cardiac ischemia. Portable 1 view chest x-ray was obtained. On my independent interpretation, lung posey are clear. There is normal cardiac silhouette. Bony thorax is normal. There is no acute process noted. Radiologist also interpreted the x-ray and agrees. EKG was obtained. On my independent interpretation, shows sinus bradycardia with a rate of 53. [place] interval was normal at 174 ms. QRS interval was normal at 78 ms. QTc interval was normal at 427 ms. [place] was borderline at -13. There are no acute ST or T wave changes noted. CBC was reviewed and was essentially within normal limits. Basic metabolic profile was reviewed. Creatinine was slightly elevated at 1.07. The remainder is within normal limits. High-sensitivity troponin was reviewed and was normal at 10. Patient was advised of her findings. Patient is feeling better. Patient was instructed to follow-up with her primary care physician in 5 to 7 days for further evaluation. Patient understands and is agreeable to this plan. All questions were answered. Discharge Plan Triage Chief Complaint: Chest Pain ED Midlevel Provider: Jessica Dowling ED Provider: Richard Lara Dx/Rx/DC Orders Clinical Impression: Chest pain Instructions: ED Chest Pain, Uncertain Cause Prescriptions: No Action aspirin [Adult Aspirin Regimen] 81 mg tablet,delayed release (DR/EC) 81 mg PO DAILY atenolol 50 mg tablet 50 mg PO DAILY Qty: 90 3RF cholecalciferol (vitamin D3) 50 mcg (2,000 unit) capsule 50 mcg PO DAILY pantoprazole 40 mg tablet,delayed release (DR/EC) 40 mg PO DAILY Patient Comments: TAKE 1 TABLET BY MOUTH TWICE DAILY potassium 99 MG tablet 99 mg PO DAILY enalapril maleate 10 mg tablet 10 mg PO DAILY Patient Comments: TAKE 1 TABLET BY MOUTH ONCE DAILY calcium carbonate [Calcium 600] 600 mg calcium (1,500 mg) Tablet 600 mg PO DAILY magnesium 250 mg Tablet 250 mg PO DAILY melatonin 5 mg Tablet 5 mg PO QHS Farxiga 10 mg Tablet 10 mg PO DAILY azithromycin [Zithromax Z-Glenn] 250 mg tablet 250 mg PO DAILY 4 Days Qty: 4 0RF Rx Instructions: start on day 2 of therapy ranolazine [Ranexa] 500 mg tablet extended release 12 hr 500 mg PO BID Qty: 60 11RF ezetimibe [Zetia] 10 mg tablet 10 mg PO DAILY Qty: 30 3RF furosemide 20 mg tablet 20 mg PO DAILY Qty: 90 3RF isosorbide mononitrate 60 mg tablet extended release 24 hr 60 mg PO BID Qty: 60 11RF clopidogrel [Plavix] 75 mg tablet 75 mg PO DAILY Qty: 90 3RF Primary Care Provider: Efrain Gibson Referrals: Efrain Gibson DO [Primary Care Provider] - 3-5 Days Activity Restrictions/Additional Instructions: Follow-up with your PCP and return for any worsening of your symptoms. Disposition Disposition: Home, Self Care Discharge Date/Time: 08/13/23 14:42
[2023-08-13 14:40] VITALS: BP 149/72; PULSE 68; RESP 16; O2SAT 98
[2023-08-13 15:32] LABS: Reflex Troponin-HS? (from REC) Y
== END 2023-08-13 14:42 | disposition home or self-care (01) ==
PROVIDERS: Emergency Provider Emergency Medicine; Visit Provider Emergency Medicine
DX: R07.9 Chest pain, unspecified (principal); I11.0 Hypertensive heart disease with heart failure; I50.9 Heart failure, unspecified; E11.9 Type 2 diabetes mellitus without complications; Z95.5 Presence of coronary angioplasty implant and graft; Z87.891 Personal history of nicotine dependence; E78.5 Hyperlipidemia, unspecified; I25.10 Atherosclerotic heart disease of native coronary artery without angina pectoris; K22.70 Barrett's esophagus without dysplasia
CPT/HCPCS: 71045; 80048; 84484; 85025; 93005; 99284; A4216

== ENCOUNTER → 2023-09-11 | Outpatient (CLI) | payer MEDICARE, OTHER, SELFPAY ==
--- NOTE | 2023-09-11 11:43 | STRESSREP ---
Stress Test Report Pharmacologic myocardial perfusion stress test. 72-year-old lady with a history of chest pain Resting EKG demonstrates sinus bradycardia with a rate of 57 bpm. Resting blood pressure is 142/80 mmHg. 0.4 mg of regadenoson was infused per usual protocol followed by rapid intravenous saline flush injection. Continuous EKG monitoring was performed. The maximum heart rate was 83 bpm which was 55% of max impacted heart rate the maximum workload was 1 metabolic equivalent. At rest there were no ST or T wave changes noted to suggest ischemia and at peak infusion nonspecific ST changes were noted which did not meet the criteria for ischemia. No clinical angina is noted. The final blood pressure was 144/72 mmHg. Myocardial perfusion protocol. 11.9 mCi of technetium 99m sestamibi was injected at rest. 0.4 mg of regadenoson was infused per usual protocol. At peak infusion 34.2 mCi of technetium 99m sestamibi was injected stress images were obtained stress and rest images were reconstructed and compared in the short axis vertical long and horizontal long axis. Gated images were also obtained. Perfusion SPECT analysis: Review of the stress images demonstrate normal uptake of tracer noted in all areas of the myocardium. The resting images similar demonstrated normal uptake of tracer noted in all areas of the myocardium. No areas of reversibility are noted to suggest ischemia and no previous infarct is noted. Gated SPECT analysis: The gated ejection fraction is 75%. Conclusion: Normal pharmacologic myocardial perfusion stress test. Preserved ejection fraction.
== END | disposition home or self-care (01) ==
LOC: CVS 06:32
PROVIDERS: Referring Provider Physician Assistant Medical; Visit Provider Physician Assistant Medical
DX: R07.9 Chest pain, unspecified (principal); I25.10 Atherosclerotic heart disease of native coronary artery without angina pectoris; I10 Essential (primary) hypertension; Z95.5 Presence of coronary angioplasty implant and graft; E78.5 Hyperlipidemia, unspecified
CPT/HCPCS: 78452; 93017; A9500; A4216; J2785

== ENCOUNTER → 2024-09-24 | Outpatient (CLI) | payer MEDICARE, OTHER, SELFPAY ==
[2024-09-24 16:39] LABS: Absolute Lymphocyte Count 2.54 X10^3/uL (0.83-4.51); Absolute Neutrophil Count 4.9 X10^3/uL (2.0-7.7); Basophil# 0.05 X10^3/uL; Basophil% 0.6 % (0-1); Eosinophil# 0.65 X10^3/uL; Eosinophils% 7.3 % (0-5); Hematocrit 43.7 % (37-47); Hemoglobin 13.3 g/dL (12.0-15.0); Lymphocyte # 2.54 X10^3/ul (0.83-4.51); Lymphocyte % 28.3 % (19-41); Mean Corp Hgb Conc 30.4 g/dL (32-36); Mean Corpuscular Hgb 24.5 pg (27.0-32.0); Mean Corpuscular Volume 80.5 fL (81-99); Mean Platelet Vol. 9.8 fl (6.2-12.0); Monocyte# 0.81 X10^3/uL; NRBC Flagged by Analyzer 0 % (0-5); Neutrophil # 4.87 X10^3/uL (2.7-7.7); Neutrophil % 54.4 % (47-70); Platelet Count 351 K/mm3 (150-450); RBC Distribution Width CV 14.8 % (11.6-14.6); RBC Distribution Width SD 42.7 fl (35.1-43.9); Red Blood Count 5.43 M/mm3 (4.2-5.4)
[2024-09-24 17:05] LABS: Anion Gap 4 (5-15); BUN 16 mg/dL (7-18); Calcium,Total 9.3 mg/dL (8.5-10.1); Chloride 105 mmol/L (98-107); Creatinine, Serum 1.23 mg/dL (0.55-1.02); EST Glomerular Filtration Rate 46 mL/min (>60); Est Glom Filt Rate - Afr Amer 55 mL/min (>60); Glucose 115 mg/dL (74-106); Potassium 3.9 mmol/L (3.5-5.1); Sodium Level 138 mmol/L (136-145)
== END | disposition home or self-care (01) ==
LOC: LAB 16:11
PROVIDERS: Referring Provider Physician Assistant Medical; Visit Provider Physician Assistant Medical
DX: R06.09 Other forms of dyspnea (principal); R53.83 Other fatigue; Z95.5 Presence of coronary angioplasty implant and graft
CPT/HCPCS: 36415; 80048; 83880; 85025

== ENCOUNTER → 2025-03-24 | Outpatient (CLI) | payer MEDICARE, OTHER, SELFPAY ==
--- OUTSIDE RECORDS SUMMARY | 2025-03-24 06:11 | XMS RPT_ITS | CCD ---
Author Organization [facility] Care Team Providers Care [place] Commissioner Name Role Phone CALLI ROSA~ Unavailable Unavailable RALPH GIBSON Unavailable Unavailable RALPH GIBSON Unavailable Unavailable VAISHALI LAU MD Admitting Unavailable VAISHALI LAU MD Attending Unavailable VAISHALI LAU MD Primary Care Unavailable RALPH GIBSON Consulting Unavailable RALPH GIBSON Referring Unavailable PROVIDER, UNKNOWN Consulting Unavailable Ralph Gibson DO Primary Care Provider Ralph Gibson DO Primary Care Provider [phone] Ralph Gibson DO Primary Care Provider [phone] Chalo HAYES Jacque Unavailable Ralph Gibson DO Primary Care Provider Chalo HAYES Cindy Jacque Unavailable Chalo HAYES Cindy Jacque Unavailable [phone] Ralph Gibson DO Primary Care Provider Ralph Gibson DO Primary Care Provider RALPH GIBSON Primary Care Unavailable RODRIGUEZ WEST Attending Unavailable RODRIGUEZ WEST Referring Unavailable Ralph Gibson DO Primary Care Provider RALPH GIBSON Primary Care Unavailable RALPH GIBSON Primary Care Unavailable Derrick Manriquez Attending Unavailable Ralph Gibson DO Primary Care Provider Gurpreet SHEPARD, Esteban Ng Primary Care Provide r VÁZQUEZESTEBAN Attending Unavailab sha VÁZQUEZ, ESTEBAN NG Primary Care Unavailab sha VÁZQUEZ, ESTEBAN NG Referring Unavailab sha VÁZQUEZ, ESTEBAN NG Primary Care Unavailab BIB Winston Attending Unavailable GURPREETESTEBAN Referring Unavailab sha VÁZQUEZ, ESTEBAN NG Primary Care UnavailMALINDA Cohen Attending Unavailable BIB RESTREPO Referring Unavailable VÁZQUEZ ESTEBANNELSON NG Primary Care Unavailab sah Gibson DO, Dr. Zuniga Primary Care Provider Paige CLARK, Dr. Zuniga Referring Provider Layla Headley Attending Provider Layla Headley Referring Unavail able Layla Headley Attending Unavail able Ralph Gibson Primary Care Unavailable Layla Headley Referring Unavail able Ralph Gibson Primary Care Unavailable Layla Headley Attending Unavail able Layla Headley Attending Unavail able Ralph Gibson Primary Care Unavailable Ralph Gibson Referring Unavailable Layla Headley Attending Unavail able Ralph Gibson Primary Care Unavailable Ralph Gibson Referring Unavailable Layla Headley Attending Unavail able Ralph Gibson Referring Unavailable Ralph Gibson Primary Care Unavailable Layla Headley Attending Unavail able Layla Headley Referring Unavail able Ralph Gibson Primary Care Unavailable Ralph Gibson DO Primary Care Provider RALPH GIBSON Primary Care Unavailable ANTONIO VILLALBA Attending Unavailable ANTONIO VILLALBA Referring Unavailable RALPH GIBSON Primary Care Unavailable ESTEBAN VÁZQUEZ Attending Unavailable ESTEBAN VÁZQUEZ Referring Unavailable ALBA MARCANO Attending Unavailable RALPH GIBSON Primary Care Unavailable RALPH GIBSON Primary Care Unavailable STEPHEN KILLIAN Admitting Unavailable STEPHEN KILLIAN Attending Unavailable RUPERTO ALVARADO Consulting Unavailable RALPH GIBSON Primary Care Unavailable RALPH GIBSON Primary Care Unavailable TOYA SHARIF Attending Unavailable RALPH GIBSON Referring Unavailable RALPH GIBSON Primary Care Unavailable RALPH GIBSON Attending Unavailable RALPH GIBSON Referring Unavailable ANTONIO VILLALBA Attending Unavailable ANTONIO VILLALBA Referring Unavailable RALPH GIBSON Primary Care Unavailable Allergies Allergy Classification Reported Allergen(s) Allergy Type Date of Onset Reaction(s) Facility HMG-CoA Reductase Inhibitors (statins) (1 source) atorvastatin Drug Allergy 05-27-20 Nausea Only [facility] metFORMIN (1 source) metFORMIN Drug Allergy 05-27-20 Nausea Only [facility] NSAIDs (1 source) Naproxen Drug Allergy 08-13-20 15 Nausea And Vomiting [facility] Opioid Agonists (1 source) Codeine Drug Allergy 04-01-20 15 Nausea And Vomiting [facility] (3 sources) Codeine; Translations: [CODEINE] Drug Allergy 04-01-20 [facility] Repository (3 sources) Naproxen; Translations: [NAPROXEN] Drug Allergy 08-13-20 [facility] Repository (18 sources) atorvastatin; Translations: [ATORVASTATIN] Drug Allergy 05-27-20 Nausea Only [facility] (20 sources) Codeine Drug Allergy 04-01-20 15 Nausea And Vomiting, Unknown, GI Upset [facility] (20 sources) metFORMIN; Translations: [METFORMIN] Drug Allergy 05-27-20 Nausea Only, Unknown [facility] (20 sources) Naproxen Drug Allergy 08-13-20 15 Nausea And Vomiting, GI Upset, Vomiting [facility] (20 sources) atorvastatin Drug Allergy 05-27-20 Unknown [facility] Comment on above: severe mylagia (20 sources) Nitrofurantoin; Translations: [NITROFURANTOIN] Drug Allergy 01-11-20 Unknown, Nausea Only [facility] (20 sources) Benadryl Allergy Decongestant; Translations: [BENADRYL ALLERGY DECONGESTANT] Drug Allergy 06-19-20 GI Upset [facility] (20 sources) Doxycycline; Translations: [DOXYCYCLINE] Drug Allergy 12-30-19 23 Other (See Comments), GI Upset [facility] (11 sources) Benadryl Allergy Propensity to adverse reactions to drug 06-19-20 Nausea Only [facility] (2 sources) Codeine Drug Allergy 02-27-20 [facility] Repository (2 sources) Naproxen Drug Allergy 02-27-20 [facility] Repository (11 sources) Blackberry; Translations: [BLACKBERRY] Drug Allergy 01-12-20 22 Hives [facility] Work Phone: (11 sources) Cephalexin; Translations: [CEPHALEXIN HCL] Drug Allergy 06-18-20 24 Intolerance [facility] (1 source) atorvastatin Drug Allergy 02-24-20 [facility] Repository (1 source) metFORMIN Drug Allergy 02-24-20 [facility] (1 source) Nitrofurantoin Drug Allergy 02-24-20 [facility] Repository Medications Current Medications Medication Drug Class(es) Dates Sig (Normalized) Sig (Original) acetaminophen 500 mg oral tablet (17 sources) take 500 mg by mouth once daily Acetaminophen (TYLENOL 8 HOUR PO) Take 500 mg by mouth daily. Active acetaminophen 325 mg / HYDROcodone bitartrate 5 mg oral tablet (3 sources) Opioid Agonist Start: 08-14-2024 End: 08-14-2024 take 1 tablet by mouth every twenty-four hours 1 tablet, Oral, NOW, 1 dose, On [place] 08/14/24 at 2000, Maximum dose of acetaminophen is 4000 mg from all sources in 24 hours. Start: 08-14-2024 End: 08-17-2024 take 1 tablet by mouth every six hours as needed hydrocodone-acetaminophen (NORCO) 5-325 MG Indications: Degeneration, intervertebral disc, cervical , Strain of neck muscle, initial encounter , Acute pain of left shoulder Take 1 tablet by mouth every 6 hours as needed for up to 3 days. 12 tablet 08/14/2024 08/17/2024 Active Start: 04-16-2022 End: 04-16-2022 hydrocodone-acetaminophen (N ORCO) 5-325 MG 1 tablet acetaminophen 325 mg / oxyCODONE hydrochloride 5 mg oral tablet (4 sources) Opioid Agonist Start: 09-23-2023 take 1 tablet by mouth every six hours as needed for pain oxycodone-acetaminophen (PERCOCET) 5-325 MG per tablet Indications: RUQ pain Take 1 tablet by mouth every 6 hours as needed for Pain. 12 tablet 0 09/23/2023 Active [id number] actuat albuterol 0.09 mg/actuat metered dose inhaler (2 sources) beta2-Adrene rgic Agonist Start: 09-30-2023 End: 09-30-2023 Albuterol Inhaler (PROVENTIL) 1 home pack 1 packet Start: 09-29-2023 End: 09-29-2023 Albuterol nebulizer soln 2.5 mg aspirin 81 mg delayed release oral tablet (20 sources) Platelet Aggregation Inhibitor, Nonsteroidal Anti-inflammatory Drug Start: 08-02-2023 End: 08-02-2023 Aspirin 325 MG tablet 325 mg Start: 03-30-2020 take 1 tablet by mau th once daily Aspirin (Adult Aspirin Regimen) 81 mg tablet,delayed release (DR/EC) Active 81 mg PO DAILY March 30, 2020 12:00am atenolol 100 mg oral tablet (20 sources) beta-Adrenergic Carlos Manuel Start: 08-04-2024 take 1 tablet by mouth once daily atenolol (TENORMIN) 100 MG tablet Indications: Primary hypertension Take 1 tablet by mouth daily. 14 tablet 08/04/2024 Active Start: 08-22-2021 take 0.5 tablet by m outh once daily atenolol (TENORMIN) 100 MG tablet Indications: Primary hypertension Take 1/2 (one-half) tablet by mouth once daily 90 tablet 1 08/29/2024 Active Start: 08-25-2020 End: 02-23-2025 take 1 tablet by mouth once daily as needed Atenolol 50 mg tablet Discontinued 50 mg PO DAILY as needed for blood pressure February 23, 2025 1:12pm February 23, 2025 1:35pm Start: 08-25-2020 End: 08-25-2020 Atenolol 100 mg tablet Disco ntinued 50 mg PO DAILY August 25, 2020 10:54am August 25, 2020 10:55am Start: 08-25-2020 End: 08-25-2020 take 50 mg by mouth once daily Atenolol Discontinued 5 0 MG PO DAILY August 25, 2020 9:54am August 25, 2020 9:55am Start: 03-30-2020 End: 08-25-2020 take 1 tablet by mouth once daily Atenolol 100 mg tablet Discontinued 100 mg PO DAILY March 30, 2020 12:00am August 25, 2020 10:54am Start: 04-23-2017 take 0.5 tablet by m outh once daily atenolol (TENORMIN) 100 MG tablet Take 0.5 tablets by mouth daily. 30 tablet 11 04/23/2017 Active Comment on above: TAKE 1/2 (ONE-HALF) TABLET BY MOUTH ONCE DAILY benzonatate 100 mg oral capsule (3 sources) Non-narcotic Antitussive Start: take 1 capsule by mouth three times daily benzonatate (TESSALON) 100 MG capsule Take 1 capsule by mouth 3 times daily. 30 capsule 1 09/30/2023 Active Start: 09-30-2023 take 1 capsule by mo ut three times daily benzonatate (TESSALON) 100 MG capsule Take 1 capsule by mouth 3 times daily. 30 capsule 1 09/30/2023 Active Start: 09-30-2023 End: 09-30-2023 benzonatate (TESSALON) capsu le 100 mg biotin 10 mg oral tablet (4 sources) Biotin 09635 MCG TABS Take by mouth. Active Calcium Carb-Cholecalciferol (CALCIUM 500 + D PO) (12 sources) Calcium Carb-Cho lecalciferol (CALCIUM 500 + D PO) Take by mouth daily. Active Calcium Carb-Cho lecalciferol (CALCIUM 500 + D PO) Take by mouth daily. 0 Active [id number] ORAL (13 sources) CALCIUM-MAGNESIU M-ZINC ORAL Take by mouth. Active clopidogrel 75 mg oral tablet (20 sources) P2Y12 Platelet Inhibitor Start : 11-17 take 1 tablet by mouth once daily clopidogrel (PLAVIX) 75 MG tablet Take 1 tablet by mouth daily. 90 tablet 3 11/17/2024 Active Start: 11-25-2020 End: 12-21-2022 take 1 tablet by mouth once daily Clopidogrel (Plavix) 75 mg tablet Discontinued 75 mg PO DAILY 90 October 24, 2021 11:38am December 21, 2022 4:10pm Continuous Glucose Language Asst (DEXCOM G7 [employer]) GRANT (3 sources) Start: 07-11-2024 Continuous Glucose Language Asst (DEXCOM G7 [employer]END[employer]) GRANT 1 Application by Does not apply route 3 times daily. 1 each 07/11/2024 Active Continuous Glucose Sensor (DEXCOM G7 SENSOR) MISC (3 sources) Start: 07-11-2024 Continuous Glucose Sensor (DEXCOM G7 SENSOR) MISC 1 Application by Does not apply route 3 times daily as needed. 4 each 3 07/11/2024 Active Continuous Glucose Sensor MISC (3 sources) Start: 07-14-2024 Continuous Glucose Sensor MISC Indications: New onset type 2 diabetes mellitus (HCC) 1 Application by Does not apply route every 10 days. 9 applicator 3 07/14/2024 Active cyclobenzaprine hydrochloride 10 mg oral tablet (15 sources) Muscle Relaxant Start: 04-16-2022 End: 08-14-2024 take 1 tablet by mouth three times daily as needed for muscle spasms cyclobenzaprine (FLEXERIL) 10 MG tablet Take 1 tablet by mouth 3 times daily as needed for Muscle spasms. 15 tablet 08/14/2024 Active DEXCOM G7 SENSOR grant (10 sources) Start: 08-30-2024 DEXCOM G7 SENSOR grant APPLY 1 SENSOR AND CHANGE EVERY 10 DAYS 08/30/2024 Active diazePAM 5 mg oral tablet (2 sources) Benzodiazepine Start: 01-27-2022 diazePAM (VALIUM) 5 MG tablet Indications: Claustrophobia 1 tab 1 hour before procedure. May repeat in 30 minutes if needed 2 tablet 0 01/27/2022 Active DIPHENHYDRAMINE-ACET AMINOPHEN PO (3 sources) DIPHENHYDRAMINE- INA TAMINOPHEN PO Take by mouth. Active doxycycline hyclate 100 mg oral capsule (1 source) Tetracycline-class Drug Start: 12-06-2022 take 1 capsule by mouth twice daily doxycycline (VIBRAMYCIN) 100 MG capsule Take 1 capsule by mouth two times a day. 14 capsule 0 12/06/2022 Active 0.5 ml dulaglutide 1.5 mg/ml auto-injector (20 sources) GLP-1 Receptor Agonist Start: 03-16-2025 Dulaglutide (TRULICITY) 0.75 MG/0.5ML SC Pen Indications: New onset type 2 diabetes mellitus (HCC) Inject 0.75 mg into the skin every 7 days. 6 mL 1 03/16/2025 Active Start: 09-29-2024 Dulaglutide (T RULICITY) 0.75 MG/0.5ML SC Pen Indications: New onset type 2 diabetes mellitus (HCC) Inject 0.75 mg into the skin every 7 days. 6 mL 1 12/09/2024 Active Start: 09-24-2024 Dulaglutide (T rulicity) 0.75 mg/0.5 mL pen injector Active 0.75 mg SC EVERY WEEK September 24, 2024 1:00am Start: 07-17-2024 Dulaglutide (T RULICITY) 0.75 MG/0.5ML SC Pen Indications: New onset type 2 diabetes mellitus (HCC) Inject 0.75 mg into the skin every 7 days. 6 mL 3 07/17/2024 Active Start: 07-11-2024 End: 10-22-2024 inject 0.75 mg by subcutaneous injection every week DULAGLUTIDE SUBCUTANEOUS Inject 0.75 mg subcutaneously one time a week. 07/11/2024 10/22/2024 Discontinued Start: 07-11-2024 Dulaglutide (T RULICITY) 0.75 MG/0.5ML SC Pen Inject 0.75 mg into the skin every 7 days. 2 mL 3 07/11/2024 Active Start: 07-11-2024 inject 0.75 mg by cade bcutaneous injection every week DULAGLUTIDE SUBCUTANEOUS Inject 0.75 mg subcutaneously one time a week. 07/11/2024 Active enalapril maleate 10 mg oral tablet (20 sources) Angiotensin Converting Enzyme Inhibitor Start: 09-01-2022 take 1 tablet by mouth once daily enalapril (VASOTEC) 10 MG tablet Take 1 tablet by mouth daily. 90 tablet 02/18/2025 Active ezetimibe 10 mg oral tablet (20 sources) Dietary Cholesterol Absorption Inhibitor Start: 03-16-2025 take 1 tablet by mouth once daily ezetimibe (ZETIA) 10 MG tablet Indications: GERD (gastroesophageal reflux disease) Take 1 tablet by mouth daily. 90 tablet 2 03/16/2025 Active Start: 06-02-2024 take 1 tablet by mau th once daily ezetimibe (ZETIA) 10 MG tablet Indications: GERD (gastroesophageal reflux disease) Take 1 tablet by mouth daily. 90 tablet 2 06/02/2024 Active Start: 07-30-2023 End: 08-29-2023 take 1 tablet by mouth once daily ezetimibe (ZETIA) 10 MG tablet Indications: GERD (gastroesophageal reflux disease) Take 1 tablet by mouth daily. 90 tablet 2 08/29/2023 Active Start: 06-08-2020 End: 11-26-2020 take 1 tablet by mouth once daily ezetimibe (ZETIA) 10 MG tablet Indications: GERD (gastroesophageal reflux disease) Take 1 tablet by mouth once daily 90 tablet 0 04/24/2023 Active furosemide 20 mg oral tablet (20 sources) Loop Diuretic Start: 12-09-2024 take 1 tablet by mouth once daily furosemide (LASIX) 20 MG tablet Indications: Essential hypertension Take 1 tablet by mouth once daily 90 tablet 3 12/09/2024 Active Start: 08-23-2020 End: 02-01-2021 take 1 tablet by mouth once daily furosemide (LASIX) 20 MG tablet Indications: Essential hypertension Take 1 tablet by mouth once daily 90 tablet 3 12/09/2024 Active Start: 07-05-2020 End: 08-23-2020 Furosemide 40 mg tablet Disc ontinued 20 mg PO DAILY July 05, 2020 12:00am August 23, 2020 10:06am On Hold: low BP Start: 07-05-2020 End: 08-23-2020 take 20 mg by mouth once daily Furosemide Discontinued 20 MG PO DAILY July 04, 2020 11:00pm August 23, 2020 9:06am On Hold: low BP Start: 06-04-2020 End: 06-08-2020 take 1 tablet by mouth once daily Furosemide (Lasix) 40 mg tablet Discontinued 40 mg PO DAILY June 04, 2020 12:00am June 08, 2020 5:31pm Comment on above: Take 1 tablet by mau th once daily. gabapentin 300 mg oral capsule (6 sources) Anti-epileptic Agent Start: 07-02-20 gabapentin (NEURONTIN) 300 MG capsule Indications: Lumbar degenerative disc disease 1 qhs for 1 week then may increase to bid in neeed 90 capsule 1 07/02/2023 Active glipiZIDE 5 mg oral tablet (20 sources) Sulfonylurea Start: 08-14-20 take 1 tablet by mouth once daily before breakfast glipiZIDE (GLUCOTROL) 5 MG tablet Indications: New onset type 2 diabetes mellitus (HCC) Take 1 tablet by mouth every morning (before breakfast). 90 tablet 3 08/26/2024 Active Start: 02-21-2023 take 1 tablet by mau th once daily before breakfast glipiZIDE (GLUCOTROL) 5 MG tablet Take 1 tablet by mouth every morning (before breakfast). 60 tablet 2 02/21/2023 Active 0.5 ml HYDROmorphone hydrochloride 1 mg/ml prefilled syringe (1 source) Opioid Agonist Start: 09-23-2023 take 0.5 mg intravenously every two hours as needed HYDROmorphone (DILAUDID) injection 0.5 mg ibuprofen 400 mg oral tablet (6 sources) Nonsteroidal Anti-inflammatory Drug take 1 tablet by mouth once daily as needed for pain ibuprofen (ADVIL,MOTRIN) 400 MG tablet Take 400 mg by mouth daily as needed for Pain. 0 Active 24 hr isosorbide mononitrate 60 mg extended release oral tablet (20 sources) Nitrate Vasodilator Start: 11-06-2024 take 2 tablets by mouth once daily in the morning isosorbide mononitrate (IMDUR) 60 MG 24 hr tablet Indications: Primary hypertension Take 2 tablets by mouth every morning. 180 tablet 3 11/06/2024 Active Start: 03-05-2024 take 2 tablets by mo uth once daily in the morning isosorbide mononitrate (IMDUR) 60 MG 24 hr tablet Indications: Primary hypertension Take 2 tablets by mouth every morning. 90 tablet 3 03/05/2024 Active Start: 11-01-2023 take 1 tablet by mau once daily in the morning isosorbide mononitrate (IMDUR) 60 MG 24 hr tablet Indications: Hypertension Take 1 tablet by mouth every morning. 90 tablet 3 11/01/2023 Active Start: 09-08-2020 End: 08-08-2021 take 1 tablet by mouth twice daily, then take 1 tablet by mouth every twenty-four hours Isosorbide Mononitrate 60 mg tablet extended release 24 hr Discontinued 60 mg PO TWICE A DAY 60 August 08, 2021 11:41am August 08, 2021 3:46pm Comment on above: Take 60 mg by mouth twice daily. Lacto No.60-Yzivae-Vog-Larc h 25B cell-25B cell-50 mg capsule (1 source) Start: 02-24-20 Lacto No.97-Hnricx-Cnz-Lar ch 25B cell-25B cell-50 mg capsule Active NMA PO February 23, 2025 12:00am nitrofurantoin, macrocrystals 25 mg / nitrofurantoin, monohydrate 75 mg oral capsule (1 source) Nitrofuran Antibacterial Start: 01-04-20 take 1 capsule by mouth twice daily Nitrofurantoin, macrocrystal-monohyd rate, (MACROBID) 100 MG capsule Indications: Acute UTI Take 1 capsule by mouth two times a day. 14 capsule 0 01/03/2022 Active nitroglycerin 0.4 mg sublingual tablet (19 sources) Nitrate Vasodilator Start: 09-07-20 nitroGLYCERIN (NITROSTAT) 0.4 MG SL tablet DISSOLVE 1 TABLET EVERY 5-15 MINUTES NEEDED FOR CHEST PAIN; DO NOT EXCEED 3 DOSES PER EPISODE 09/07/2023 Active Start: 09-07-2023 Nitroglycerin (Nitrostat) 0.4 mg tablet, sublingual Active 0.4 mg SL every 5 to 15 minutes as needed for chest pain September 07, 2023 1:00am do not exceed 3 doses per episode Start: 04-29-2020 Nitroglycerin Active 0.4 MG SL every 5 to 15 minutes April 29, 2020 3:47pm do not exceed 3 doses per episode ondansetron 4 mg disintegrating oral tablet (6 sources) Serotonin-3 Receptor Antagonist Start: 01-21-2025 End: 01-21-2025 4 mg, IV Push, NOW, 1 dose, On Sun01/21/25 at 1730, Caution: This medication looks and/or sounds like another medication. Start: 09-23-2023 take 1 tablet by mau th every eight hours as needed Ondansetron (ZOFRAN-ODT) 4 MG disintegrating tablet Take 1 tablet by mouth every 8 hours as needed for Nausea and/or Vomiting. Dissolve on tongue then swallow. 20 tablet 0 09/23/2023 Active Start: 09-23-2023 take 4 mg intravenou sly every six hours as needed ondansetron hcl (ZOFRAN) injection 4 mg pantoprazole 40 mg delayed release oral tablet (20 sources) Proton Pump Inhibitor Start: 12-01-2024 take 1 tablet by mouth twice daily Pantoprazole 40 mg tablet,delayed release (DR/EC) Active 40 mg PO TWICE A DAY February 23, 2025 1:12pm Start: 08-12-2024 take 1 tablet by mau th twice daily pantoprazole (PROTONIX) 40 MG tablet Indications: GERD (gastroesophageal reflux disease) Take 1 tablet by mouth two times per day. 90 tablet 2 08/12/2024 Active Start: 09-13-2023 take 1 tablet by mau th twice daily pantoprazole (PROTONIX) 40 MG tablet Indications: GERD (gastroesophageal reflux disease) Take 1 tablet by mouth two times per day. 90 tablet 2 09/13/2023 Active Start: 05-14-2023 take 1 tablet by mau th twice daily pantoprazole (PROTONIX) 40 MG tablet Take 1 tablet by mouth two times per day. 90 tablet 2 05/14/2023 Active Start: 12-21-2022 take 1 tablet by mau th twice daily pantoprazole (PROTONIX) 40 MG tablet Take 1 tablet by mouth twice daily 90 tablet 0 12/21/2022 Active Start: 06-29-2022 End: 02-23-2025 take 1 tablet by mouth once daily Pantoprazole 40 mg tablet,delayed release (DR/EC) Discontinued 40 mg PO DAILY June 29, 2022 12:00am February 23, 2025 1:13pm Start: 05-23-2022 take 1 tablet by mau th twice daily pantoprazole (PROTONIX) 40 MG tablet Take 1 tablet by mouth two times a day. 90 tablet 3 05/23/2022 Active Start: 03-14-2021 End: 05-23-2022 take 1 tablet by mouth once daily Pantoprazole (Protonix) 40 mg tablet,delayed release (DR/EC) Discontinued 40 mg PO DAILY March 14, 2021 12:00am September 21, 2021 10:39am Comment on above: Take 40 mg by mouth once daily. potassium,chelated 95 mg oral tablet (17 sources) Potassium 95 MG TABS Take 99 mLs by mouth Daily. Active POTASSIUM-99 ORAL (13 sources) POTASSIUM-99 ORA L Take by mouth. Active predniSONE 20 mg oral tablet (1 source) Start: 01-11-2022 take 1 tablet by mouth once daily predniSONE (DELTASONE) 20 MG tablet Take 20 mg by mouth daily. 0 01/11/2022 Active quinapril 20 mg oral tablet (20 sources) Angiotensin Converting Enzyme Inhibitor Start: 05-10-2022 take 1 tablet by mouth once daily quinapril (ACCUPRIL) 20 MG tablet Take 1 tablet by mouth daily. 90 tablet 3 05/10/2022 Active Start: 08-22-2021 take 1 tablet by mau th once daily quinapril (ACCUPRIL) 20 MG tablet Take 1 tablet by mouth daily. 90 tablet 3 08/22/2021 Active Start: 08-23-2020 End: 06-29-2022 take 1 tablet by mouth once daily Quinapril 5 mg tablet Discontinued 0 .ROUTE .COMPLEX 90 August 22, 2021 12:42pm June 29, 2022 1:50pm Take 1 tablet by mouth once daily Start: 04-30-2020 End: 08-23-2020 take 10 mg by mouth once daily Quinapril 20 mg tablet Discontinued 10 mg PO DAILY April 30, 2020 1:54pm August 23, 2020 10:05am Start: 04-30-2020 End: 08-23-2020 take 10 mg by mouth once daily Quinapril Discontinued 10 MG PO DAILY April 30, 2020 12:54pm August 23, 2020 9:05am Start: 05-23-2016 End: 04-30-2020 take 1 tablet by mouth once daily Quinapril 20 mg tablet Discontinued 20 mg PO DAILY March 30, 2020 12:00am April 30, 2020 1:56pm 12 hr ranolazine 500 mg extended release oral tablet (20 sources) Anti-anginal Start: 12-09-2024 take 1 tablet by mouth twice daily ranolazine (RANEXA) 500 MG 12 hr tablet Take 1 tablet by mouth two times a day. 180 tablet 3 12/09/2024 Active Start: 04-29-2020 End: 09-07-2023 take 1 tablet by mouth twice daily Ranolazine (Ranexa) 500 mg tablet extended release 12 hr Active 500 mg PO TWICE A DAY 60 September 07, 2023 12:54pm Comment on above: Take 1 tablet by mau th twice daily. sucralfate 1000 mg oral tablet (2 sources) Aluminum Complex Start: 05-23-2022 take 1 tablet by mouth four times daily before mealtime sucralfate (CARAFATE) 1 g tablet Take 1 tablet by mouth 4 times daily (before meals and nightly). 120 tablet 0 05/23/2022 Active Start: 01-11-2022 take 1 tablet by mau th four times daily as needed for gastroesophageal reflux disease sucralfate (CARAFATE) 1 g tablet TAKE 1 TABLET BY MOUTH 4 TIMES DAILY NEEDED FOR HEARTBURN/REFLUX 0 01/11/2022 Active ubidecarenone 200 mg oral ca psule (3 sources) Coenzyme Q10 (CO Q10) 200 MG CAPS Take 200 mg by mouth twice daily [id number]. 0 Active Completed/Discontinued Medications Medication Drug Class(es) Dates Sig (Normalized) Sig (Original) atorvastatin 40 mg oral tablet (13 sources) HMG-CoA Reductase Inhibitor Start: 04-21-2020 End: 05-14-2020 take 1 tablet by mouth at bedtime Atorvastatin 40 mg tablet Discontinued 40 mg PO AT BEDTIME April 21, 2020 2:38pm May 14, 2020 8:47am Start: 06-26-2016 take 1 tablet by mau th once daily atorvastatin (LIPITOR) 20 MG tablet Take 1 tablet by mouth daily. 30 tablet 11 06/26/2016 Active azithromycin 250 mg oral tablet (4 sources) Macrolide Antimicrobial Start: 12-09-2022 End: 09-07-2023 take 2 tablets by mouth once daily Azithromycin (Zithromax Z-Glenn) 250 mg tablet Discontinued 250 mg PO DAILY 4 December 09, 2022 1:00am September 07, 2023 12:32pm start on day 2 of therapy calcium carbonate 1500 mg oral tablet (4 sources) Start: 12-09-2022 End: 06-24-2024 take 1 tablet by mouth once daily Calcium Carbonate (Calcium 600) 600 mg calcium (1,500 mg) Tablet Discontinued 600 mg PO DAILY December 09, 2022 1:00am June 24, 2024 2:48pm Calcium Carbonate / vitamin D3 (7 sources) End: 07-22-2024 take 1 tablet by mouth once daily calcium carbonate/vitamin D3 (CALCIUM 600 + D ORAL) Take 1 tablet by mouth once daily. 07/22/2024 Discontinued take 1 tablet by mouth once ezio y calcium carbonate/vitamin D3 (CALCIUM 600 + D ORAL) Take 1 tablet by mouth once daily. Active take 1 tablet by mouth once ezio y calcium carbonate/vitamin D3 (CALCIUM 600 + D ORAL) Take 1 tablet by mouth once daily. 0 Active Comment on above: Take 1 tablet by mau th once daily. calcium chloride 0.0014 meq/ml / potassium chloride 0.004 meq/ml / sodium chloride 0.103 meq/ml / sodium lactate 0.028 meq/ml injectable solution (1 source) Start: 5 End: 5 Intravenous, at 50 mL/hr, ONCE, 1 dose, On Sun01/21/25 at 2015, Pre-op (OPS) cefdinir 300 mg oral capsule (3 sources) Cephalosporin Antibacterial Start: 4 End: take 1 capsule by mouth twice daily Cefdinir 300 mg capsule Discontinued 300 mg PO TWICE A DAY June 24, 2024 12:00am September 24, 2024 4:28pm Start: 12-29-2022 take 1 capsule by mo uth twice daily cefdinir (OMNICEF) 300 MG capsule Take 1 capsule by mouth two times a day. 14 capsule 0 12/29/2022 Active Start: 01-06-2022 take 1 capsule by mo uth twice daily cefdinir (OMNICEF) 300 MG capsule Take 1 capsule by mouth two times a day. 14 capsule 0 01/06/2022 Active cholecalciferol 0.05 mg oral capsule (20 sources) Vitamin D Start: 09-21-2021 End: 10-22-2024 take 1 capsule by mouth once daily Cholecalciferol, Vitamin D3, 50 mcg (2,000 unit) cap Take 1 capsule by mouth once daily. 09/21/2021 10/22/2024 Discontinued Start: 09-21-2021 End: 06-24-2024 take 1 capsule by mouth once daily Cholecalciferol (Vitamin D3) 50 mcg (2,000 unit) capsule Discontinued 50 ug PO DAILY September 21, 2021 1:00am June 24, 2024 2:49pm Comment on above: Take 1 capsule by mo uth once daily. dapagliflozin 10 mg oral tablet (15 sources) Sodium-Glucose Cotransporter 2 Inhibitor Start: End: take 1 tablet by mouth once daily Dapagliflozin Propanediol (Farxiga) 10 mg Tablet Discontinued 10 mg PO DAILY December 09, 2022 1:00am September 24, 2024 4:28pm dexamethasone phosphate 10 mg/ml injectable solution (1 source) Corticosteroid Start: End: Dexamethasone (DECADRON) injection 5 mg escitalopram 10 mg oral tablet (10 sources) Serotonin Reuptake Inhibitor Start: End: take 1 tablet by mouth once as needed for anxiety Escitalopram Oxalate 10 MG tablet Discontinued 10 mg PO NEEDED as needed for Anxiety September 06, 2020 1:02pm June 29, 2022 1:53pm PRN- PER PT 2 ml famotidine 10 mg/ml injection (1 source) Histamine-2 Receptor Antagonist Start: End: Famotidine (PF) (PEPCID) injection 20 mg ferrous gluconate 324 mg oral tablet (20 sources) Start: 022 End: take 1 tablet by mouth three times daily at mealtime ferrous gluconate (FERGON) 324 (38 Fe) MG tablet Indications: GERD (gastroesophageal reflux disease) Take 1 tablet by mouth 3 times daily (with meals). 90 tablet 5 06/19/2022 01/21/2025 Discontinued Start: 09-26-2021 take 1 tablet by mau th three times daily at mealtime ferrous gluconate (FERGON) 324 (38 Fe) MG tablet Take 1 tablet by mouth 3 times daily (with meals). 90 tablet 5 09/26/2021 Active Start: 02-07-2021 take 1 tablet by mau th three times daily at mealtime ferrous gluconate (FERGON) 324 (38 Fe) MG tablet Take 1 tablet by mouth 3 times daily (with meals). 0 02/07/2021 Active Comment on above: Take 324 mg by mouth three times daily. ferrous sulfate 324 mg delayed release oral tablet (6 sources) Start: 09-07-2023 End: 06-24-2024 take 1 tablet by mouth twice daily Ferrous Sulfate 324 mg (65 mg iron) tablet,delayed release (DR/EC) Discontinued 324 mg PO TWICE A DAY September 07, 2023 1:00am June 24, 2024 2:48pm Start: 09-06-2020 End: 09-21-2021 take 1 tablet by mouth three times daily at mealtime Ferrous Sulfate 325 MG tablet Discontinued 325 mg PO 3 TIMES DAILY WITH MEALS September 06, 2020 1:00am September 21, 2021 10:39am fluconazole 150 mg oral tablet (2 sources) Azole Antifungal Start: 07-11-2024 End: 01-21-2025 fluconazole (DIFLUCAN) 150 MG tablet Take 1 tablet by mouth every 72 hours. 2 tablet 07/11/2024 01/21/2025 Discontinued glucagon (rdna) 1 mg injection (1 source) Antihypoglycemic Agent Start: 01-21-2025 End: 01-21-2025 1 mg, IV Push, NOW, 1 dose, On Sun01/21/25 at 1730 hydroCHLOROthiazide 12.5 mg oral tablet (10 sources) Thiazide Diuretic Start: 03-30-2020 End: 07-05-2020 take 1 tablet by mouth once daily Hydrochlorothiazide 12.5 mg tablet Discontinued 12.5 mg PO DAILY March 30, 2020 12:00am July 05, 2020 4:04pm Start: 04-02-2017 take 1 capsule by mo [facility] once daily hydrochlorothiazide (MICROZIDE) 12.5 MG capsule TAKE ONE CAPSULE BY MOUTH ONCE DAILY 30 capsule 04/02/2017 Active isosorbide dinitrate 40 mg oral tablet (20 sources) Nitrate Vasodilator Start: 09-07-2020 End: 09-08-2020 take 1 tablet by mouth three times daily Isosorbide Dinitrate 40 mg tablet Discontinued 40 mg PO THREE TIMES A DAY 270 September 07, 2020 1:00am September 08, 2020 5:24pm allow nitrate-free interval of 12-14 hrs per 24-hr period Start: 04-30-2020 End: 09-07-2020 Isosorbide Dinitrate 20 mg t ablet Discontinued 40 mg PO THREE TIMES A DAY 180 April 30, 2020 1:55pm September 07, 2020 2:43pm Start: 04-30-2020 End: 09-07-2020 take 40 mg by mouth three times daily Isosorbide Dinitrate Discontinued 40 MG PO THREE TIMES A DAY 180 April 30, 2020 12:55pm September 07, 2020 1:43pm Start: 04-29-2020 End: 04-30-2020 Isosorbide Dinitrate 20 mg t ablet Discontinued 40 mg PO TWICE A DAY 120 April 29, 2020 3:45pm April 30, 2020 1:56pm Start: 04-29-2020 End: 04-30-2020 take 40 mg by mouth twice daily Isosorbide Dinitrate Discontinued 40 MG PO TWICE A DAY 120 April 29, 2020 2:45pm April 30, 2020 12:56pm Start: 04-27-2020 End: 04-29-2020 take 1 tablet by mouth twice daily Isosorbide Dinitrate 20 MG tablet Discontinued 20 mg PO TWICE A DAY 60 April 27, 2020 12:00am April 29, 2020 3:47pm 1 ml ketorolac tromethamine 30 mg/ml cartridge (1 source) Nonsteroidal Anti-inflammatory Drug, Cyclooxygenase Inhibitor Start: 08-14-2024 End: 08-14-2024 15 mg, Intramuscular, NOW, 1 dose, On [place] 08/14/24 at 1845 levoFLOXacin 750 mg oral tablet (5 sources) Quinolone Antimicrobial Start: 03-13-2022 End: 06-29-2022 take 1 tablet by mouth once daily Levofloxacin 750 mg tablet Discontinued 750 mg PO DAILY 4 March 13, 2022 12:00am June 29, 2022 1:51pm start 03/14 LOCM iodixanol (VISIPAQUE 320 MG/ML) 320 MG/ML injection 75 mL (1 source) Start: 09-23-2023 End: 09-23-2023 LOCM iodixanol (VISIPAQUE 320 MG/ML) 320 MG/ML injection 75 mL LORazepam 0.5 mg oral tablet (8 sources) Benzodiazepine Start: 04-23-2020 End: 04-24-2020 take 1 tablet by mouth twice daily as needed for anxiety Lorazepam 0.5 MG tablet Discontinued 0.5 mg PO TWICE DAILY NEEDED as needed for Anxiety April 23, 2020 12:00am April 24, 2020 12:27pm take 1 tablet by mau th every eight hours as needed for anxiety LORazepam (ATIVAN) 0.5 MG tablet Take 0. 5 mg by mouth every 8 hours as needed for Anxiety. 0 Active Magnesium (20 sources) Start: 12-09-2022 End: 09-07-2023 take 1 tablet by mouth once daily Magnesium 250 mg Tablet Discontinued 250 mg PO DAILY December 09, 2022 1:00am September 07, 2023 12:33pm Start: 12-09-2022 take 250 mg by mouth once ezio y Magnesium Active 250 MG PO DAILY December 09, 2022 1:00am Start: 12-09-2022 take 250 mg by mouth once ezio y Magnesium Active 250 MG PO DAILY December 09, 2022 12:00am Magnesium 500 MG TABS Take by mouth daily. Active take 1 tablet by mau th once daily Magnesium 250 mg tab Take 250 mg by mouth once daily. Active take 1 tablet by mau th once daily Magnesium 250 mg tab Take 250 mg by mouth once daily. 0 Active Magnesium 500 MG TABS Take by mouth daily. 0 Active Comment on above: Take 250 mg by mouth once daily. magnesium hydroxide 80 mg/ml oral suspension (5 sources) Start: 0 End: 0 take 1 mL by mouth once daily as needed for constipation Magnesium Hydroxide 30 ML suspension Discontinued 30 mL PO DAILY NEEDED as needed for Constipation April 27, 2020 12:00am May 14, 2020 8:48am Start: 04-27-2020 End: 05-14-2020 take 1 mL by mouth once daily as needed Magnesium Hydroxide Discontinued 30 ML PO DAILY NEEDED April 26, 2020 11:00pm May 14, 2020 7:48am melatonin 5 mg oral tablet (20 sources) Start: 12-09-2022 End: 06-24-2024 take 1 tablet by mouth at bedtime Melatonin 5 mg Tablet Discontinued 5 mg PO AT BEDTIME December 09, 2022 1:00am June 24, 2024 2:48pm [facility] as needed Melatonin 10 MG TABS Take 10 mg by mouth nightly as needed. Active melatonin 10 mg cap Take 10 mg by mouth. Active methylPREDNISolone 4 mg oral tablet (3 sources) Corticosteroid Start: 08-14-2024 End: 01-21-2025 methylPREDNISolone (MEDROL DOSEPAK) 4 MG tablet follow package directions 21 tablet 08/14/2024 01/21/2025 Discontinued Start: 04-16-2022 methylPREDNISo lone (MEDROL DOSEPAK) 4 MG tablet follow package directions 21 tablet 0 04/16/2022 Active omeprazole 20 mg delayed release oral tablet (16 sources) Proton Pump Inhibitor Start: 03-13-2021 End: 03-14-2021 take 1 tablet by mouth once daily Omeprazole Magnesium (Prilosec Otc) 20 mg Tablet,Delayed Release (Dr/Ec) Discontinued 20 mg PO DAILY March 13, 2021 12:00am March 14, 2021 1:14pm Start: 04-26-2020 End: 07-22-2024 take 1 capsule by mouth once daily Omeprazole 20 mg capsule,delayed release(DR/EC) Discontinued 20 mg PO DAILY September 21, 2021 1:00am June 29, 2022 1:51pm potassium gluconate 2.5 meq oral tablet (10 sources) Start: 09-06-2020 End: 02-23-2025 take 1 tablet by mouth once daily Potassium 99 MG tablet Discontinued 99 mg PO DAILY September 06, 2020 1:00am February 23, 2025 1:13pm Start: 03-30-2020 End: 09-01-2020 Potassium Gluconate 550 mg ( 90 mg) tablet Discontinued 550 mg PO DAILY March 30, 2020 12:00am September 01, 2020 8:30am 99 mg daily rosuvastatin calcium 5 mg oral tablet (5 sources) HMG-CoA Reductase Inhibitor Start: 05-14-2020 End: 06-08-2020 take 1 tablet by mouth every other day Rosuvastatin (Crestor) 5 mg tablet Discontinued 5 mg PO .every other day May 14, 2020 12:00am June 08, 2020 5:31pm sertraline 100 mg oral tablet (5 sources) Serotonin Reuptake Inhibitor Start: 03-30-2020 End: 03-31-2020 take 1 tablet by mouth once daily Sertraline (Zoloft) 100 mg tablet Discontinued 100 mg PO DAILY March 30, 2020 12:00am March 31, 2020 1:20pm 1000 ml sodium chloride 9 mg/ml injection (3 sources) Start: 03-17-2025 End: 03-17-2025 1,000 mL, Intravenous, Administer over 31 Minutes, On Sun03/17/25 at 2345, ONCE, 1 dose Start: 12-16-2024 End: 12-16-2024 take 30 mL intravenously every hour 30 mL/hr, INTRAVENOUS, CONTINUOUS, Starting on Sun12/16/24 at 0730, Until Sun12/16/24 at 0842, Preprocedure Start: 05-23-2022 0.9% NaCl infu jael ticagrelor 90 mg oral tablet (10 sources) Start: 04-21-2020 End: 11-25-2020 take 1 tablet by mouth twice daily Ticagrelor 90 mg tablet Discontinued 90 mg PO TWICE A DAY 60 August 20, 2020 3:43pm November 25, 2020 5:34pm Problems Active Problems Problem Classification Problem Date Documented Da te Episodic/Chronic Abdominal hernia (18 sources) Hiatal hernia; Translations: [Diaphragmatic hernia without obstruction or gangrene] Onset: 2 06-29-2022 Episodic Abdominal pain (5 sources) Epigastric pain; Translations: [Epigastric pain] Episodic Anxiety disorders (5 sources) Anxiety; Translations: [Anxiety disorder, unspecified] 03-21-2021 Chronic Cardiac dysrhythmias (2 sources) Palpitations; Translations: [Palpitations] Onset: 5 03-17-2025 Episodic Congestive heart failure; nonhypertensive (17 sources) Congestive heart failure; Translations: [Heart failure, unspecified] Onset: 4 07-23-2024 Chronic Coronary atherosclerosis and other heart disease (20 sources) Coronary atherosclerosis; Translations: [Atherosclerotic heart disease of 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 angina pectoris] Onset: 0 Chronic Coronary atherosclerosis and other heart disease (2 sources) Presence of coronary angioplasty implant and graft; Translations: [Presence of coronary angioplasty implant and graft] Onset: 5 Episodic Diabetes mellitus without complication (20 sources) Type 2 diabetes mellitus; Translations: [Type 2 diabetes mellitus without complications] Onset: 0 03-21-2021 Chronic Diabetes mellitus without complication (3 sources) Impaired glucose tolerance; Translations: [Impaired glucose tolerance (oral)] Episodic Disorders of lipid metabolism (20 sources) Hyperlipidemia; Translations: [Hyperlipidemia, unspecified] Onset: 7 04-26-2020 Chronic Diverticulosis and diverticulitis (10 sources) Diverticulitis; Translations: [Diverticulitis of intestine, part unspecified, without perforation or abscess without bleeding] Onset: 5 10-22-2024 Chronic Esophageal disorders (20 sources) Gastroesophageal reflux disease; Translations: [Gastro-esophageal reflux disease without esophagitis] Onset: 2 04-11-2022 Chronic Essential hypertension (20 sources) Hypertensive disorder; Translations: [Essential (primary) hypertension] Onset: 7 03-23-2021 Chronic Gastrointestinal hemorrhage (5 sources) Gastrointestinal hemorrhage; Translations: [Gastrointestinal hemorrhage, unspecified] 03-21-2021 Episodic Nausea and vomiting (1 source) Nausea; Translations: [Nausea] 09-23-2023 Episodic Nonspecific chest pain (16 sources) Chest pain; Translations: [Chest pain, unspecified] 03-21-2021 Episodic Nutritional deficiencies (1 source) Vitamin D deficiency; Translations: [Vitamin D deficiency, unspecified] Chronic Osteoarthritis (1 source) Degenerative joint disease involving multiple joints; Translations: [Polyosteoarthritis, unspecified] 07-02-2023 Chronic Other circulatory disease (4 sources) H/O: heart disorder; Translations: [Personal history of other diseases of the circulatory system] 12-09-2022 Episodic Other gastrointestinal disorders (4 sources) Gastrointestinal tract problem; Translations: [Other specified symptoms and signs involving the digestive system and abdomen] 06-29-2022 Episodic Other gastrointestinal disorders (2 sources) Esophageal dysphagia; Translations: [Other dysphagia] 06-18-2024 Episodic Other gastrointestinal disorders (8 sources) Dysphagia; Translations: [Dysphagia, unspecified] Onset: 5 10-22-2024 Episodic Other gastrointestinal disorders (1 source) Dysphagia, unspecified; Translations: [Dysphagia, unspecified type] Onset: 5 Episodic Other gastrointestinal disorders (1 source) Other dysphagia; Translations: [Esophageal dysphagia] Onset: 5 Episodic Other injuries and conditions due to external causes (1 source) Food lodged in esophagus; Translations: [Food in esophagus causing other injury, initial encounter] 01-21-2025 Episodic Other injuries and conditions due to external causes (1 source) Food in esophagus causing other injury, initial encounter; Translations: [Food in esophagus causing other injury, initial encounter] Onset: 5 Episodic Other lower respiratory disease (6 sources) Dyspnea on exertion; Translations: [Dyspnea, unspecified] 03-21-2021 Episodic Other lower respiratory disease (3 sources) Persistent cough; Translations: [Persistent cough] 12-23-2022 Episodic Other lower respiratory disease (2 sources) Dyspnea, unspecified; Translations: [Dyspnea, unspecified] Onset: 5 Episodic Other nutritional; endocrine; and metabolic disorders (18 sources) Obesity; Translations: [Obesity, unspecified] Onset: 2 06-29-2022 Chronic Other nutritional; endocrine; and metabolic disorders (2 sources) Severe obesity; Translations: [Class 2 severe obesity due to excess calories with serious comorbidity and body mass index (BMI) of 37.0 to 37.9 in adult (HCC)] 07-23-2024 Chronic Other nutritional; endocrine; and metabolic disorders (2 sources) Morbid (severe) obesity due to excess calories; Translations: [Class 2 severe obesity due to excess calories with serious comorbidity and body mass index (BMI) of 37.0 to 37.9 in adult ([facility])] Onset: 4 Chronic Other nutritional; endocrine; and metabolic disorders (2 sources) Body mass index (BMI) 37.0-37.9, adult; Translations: [Class 2 severe obesity due to excess calories with serious comorbidity and body mass index (BMI) of 37.0 to 37.9 in adult ([facility])] Onset: 4 Chronic Other nutritional; endocrine; and metabolic disorders (4 sources) H/O: diabetes mellitus; Translations: [Personal history of other endocrine, nutritional and metabolic disease] 12-09-2022 Episodic Other screening for suspected conditions (not mental disorders or infectious disease) (7 sources) Patient encounter status; Translations: [Encounter for screening mammogram for malignant neoplasm of breast] Onset: 5 Episodic Other upper respiratory infections (1 source) Viral upper respiratory tract infection; Translations: [Acute upper respiratory infection, unspecified] 09-30-2023 Episodic Pneumonia (except that caused by tuberculosis or sexually transmitted disease) (9 sources) Pneumonia; Translations: [Pneumonia, unspecified organism] 12-09-2022 Episodic Screening and history of mental health and substance abuse codes (1 source) Encounter for screening examination for other mental health and behavioral disorders; Translations: [Encounter for screening examination for other mental health and behavioral disorders] Onset: 5 Episodic Spondylosis; intervertebral disc disorders; other back problems (2 sources) Degeneration of cervical intervertebral disc; Translations: [Other cervical disc degeneration, unspecified cervical region] Onset: 4 08-14-2024 Chronic Spondylosis; intervertebral disc disorders; other back problems (11 sources) Cervical radiculopathy; Translations: [Radiculopathy, cervical region] Onset: 5 Episodic Unclassified (1 source) Follow-up / [id number]() Onset: 7 Unclassified (1 source) Class 2 severe obesity due to excess calories with serious comorbidity and body mass index (BMI) of 37.0 to 37.9 in adult ([facility]); Translations: [Class 2 severe obesity due to excess calories with serious comorbidity and body mass index (BMI) of 37.0 to 37.9 in adult (HCC)] Onset: 4 Unclassified (1 source) Food entering into or through a natural orifice, initial encounter; Translations: [Food entering into or through a natural orifice, initial encounter] Onset: 5 Unclassified (1 source) Obesity, class 2; Translations: [Obesity, class 2] Onset: 5 Viral infection (1 source) COVID-19; Translations: [Pneumonia due to other virus not elsewhere classified] Episodic Past or Other Problems Problem Classification Problem Date Documented Da te Episodic/Chronic Genitourinary symptoms and ill-defined conditions (3 sources) Abnormal urine odor; Translations: [Unspecified abnormal findings in urine] Onset: 06-16-2024 10-22-2024 Episodic Malaise and fatigue (6 sources) Fatigue; Translations: [Other fatigue] Onset: 09-24-2024 09-21-2021 Episodic Other lower respiratory disease (1 source) Other forms of dyspnea; Translations: [Other forms of dyspnea] Onset: 10-30-2024 Episodic Other non-epithelial cancer of skin (17 sources) Basal cell carcinoma of skin; Translations: [Basal cell carcinoma of skin, unspecified] Onset: 07-23-2024 07-23-2024 Episodic Other non-traumatic joint disorders (2 sources) Pain in left shoulder; Translations: [Pain in joint, shoulder region] Onset: 08-14-2024 08-14-2024 Episodic Other nutritional; endocrine; and metabolic disorders (1 source) Personal history of other endocrine, nutritional and metabolic disease; Translations: [Personal history of other endocrine, nutritional and metabolic disease] Onset: 06-16-2024 Episodic Sprains and strains (2 sources) Strain of neck muscle; Translations: [Strain of muscle, fascia and tendon at neck level, initial encounter] Onset: 08-14-2024 08-14-2024 Episodic Unclassified (1 source) Onset: 05-23-2022 05-23-2022 Urinary tract infections (6 sources) Acute cystitis; Translations: [Acute cystitis without hematuria] Onset: 06-16-2024 03-21-2022 Episodic Results Test Name Value Interpretation Reference Range Facility BASIC METABOLIC PANELon 03-08 Anion gap [Moles/Vol] 12 mmol/L Normal 8-12 [facility] [employer] Comment on above: Performed By: #### L [id number], [id number] #### [facility] [id number] [place] [address] Calcium [Mass/Vol] 9.1 mg/dL Normal 8.4-10.4 [facility] Comment on above: Performed By: #### L [id number], [id number] #### [facility] [id number] [place] [address] Chloride [Moles/Vol] 101 mmol/L Normal 96-109 [facility] Comment on above: Performed By: #### L [id number], [id number] #### [facility] [id number] [place] [address] CO2 [Moles/Vol] 26 mmol/L Normal 22-30 [facility] [employer] Comment on above: Performed By: #### L [id number], [id number], [id number] #### [facility] [id number] [place] [address] Creatinine [Mass/Vol] 1.21 mg/dL High 0.52-1.04 [facility] Comment on above: Performed By: #### L [id number], [id number], [id number] #### [facility] [id number] [place] [address] GLOMERULAR FILTRATION RATE ML/MIN/1.73 SQ M.PREDICTED 47.7 mL/min/1.73m*2 Low >=60.0 [facility] [employer] Comment on above: Result Comment: eGFR calculation based on the Chronic Kidney Disease Epidemiology Collaboration (CKD-EPI) equation refit without adjustment for race. Categories in Chronic Kidney Disease (CKD) Category: GFR(mL/min/1.73m^2) Interpretation: G1* 90 or greater Normal or high G2* 60-89 Mild decrease G3a 45-59 Mild to moderate decrease G3b 30-44 Moderate to severe decrease G4 15-29 Severe decrease G5 14 or less Kidney failure *G1&G2: In the absence of evidence of kidney damage, neither GFR category G1 nor G2 fulfill the criteria for CKD Kidney Int Suppl.2013;3:1-150 Performed By: #### L [id number], [id number], [id number] #### [facility] [id number] [place] [address] Glucose [Mass/Vol] 178 mg/dL High 65-100 [facility] Comment on above: Performed By: #### L [id number], [id number] #### [facility] [id number] [place] [address] Potassium [Moles/Vol] 3.5 mmol/L Low 3.6-5.1 [facility] Comment on above: Performed By: #### L [id number], [id number] #### [facility] [id number] [place] [address] Sodium [Moles/Vol] 139 mmol/L Normal 135-147 [facility] Comment on above: Performed By: #### L [id number], [id number] #### [facility] [id number] [place] [address] Urea nitrogen [Mass/Vol] 18 mg/dL Normal 8-26 [facility] Comment on above: Performed By: #### L [id number], [id number] #### [facility] [address] [place] [address] Basic metabolic panel aka em 803-17-2025 Anion gap [Moles/Vol] 12 mmol/L 8 - 12 mmol/L [facility] Calcium [Mass/Vol] 9.1 mg/dL 8.4 - 10. 4 mg/dL [facility] Calcium hydrogen phosphate dihydrate crystals LM Ql (Urine sed) 18 mg/dL 8 - 26 mg/dL [facility] Chloride [Moles/Vol] 101 mmol/L 96 - 10 9 mmol/L [facility] CO2 (BldMV) [Moles/Vol] 26 mmol/L 22 - 30 mmol/L [facility] Creatinine [Mass/Vol] 1.21 mg/dL High 0.52 - 1.04 mg/dL [facility] GFR/1.73 sq M.predicted among non-blacks MDRD (S/P/Bld) [Vol rate/Area] 47.7 mL/min/{1.73_m2} Low - [facility] Comment on above: eGFR calculation bas ed on the Chronic Kidney Disease Epidemiology Collaboration (CKD-EPI) equation refit without adjustment for race. Categories in Chronic Kidney Disease (CKD) Category: GFR(mL/min/1.73m^2) Interpretation: G1* 90 or greater Normal or high G2* 60-89 Mild decrease G3a 45-59 Mild to moderate decrease G3b 30-44 Moderate to severe decrease G4 15-29 Severe decrease G5 14 or less Kidney failure *G1&G2: In the absence of evidence of kidney damage, neither GFR category G1 nor G2 fulfill the criteria for CKD Kidney Int Suppl.2013;3:1-150 Glucose [Mass/Vol] 178 mg/dL High 65 - 100 mg/dL [facility] Interpretation and review of laboratory results Abnormal [facility] Potassium [Moles/Vol] 3.5 mmol/L Low 3.6 - 5.1 mmol/L [facility] Sodium [Moles/Vol] 139 mmol/L 135 - 147 mmol/L [facility] CBC AND DIFFERENTIALon 03-17 ABSOLUTE BASOPHIL 0.1 x10*3/uL Normal 0.0-0.1 [facility] Comment on above: Performed By: #### 4 [id number] ####[facility] [id number] [facility] [place] [address] ABSOLUTE EOSINOPHIL 0.2 x10*3/uL Normal 0.1-0.3 [facility] Comment on above: Performed By: #### 4 [id number] ####[facility] [id number] [place] [address] ABSOLUTE IMMATURE GRANULOCYTES 0.0 x10*3/uL Normal 0.0-0.1 [facility] Comment on above: Performed By: #### 4 [id number] ####[facility] [id number] [facility] [place] [address] ABSOLUTE LYMPH 2.0 x10*3/uL Normal 1.2-3.3 [facility] Comment on above: Performed By: #### 4 [id number] ####[facility] [id number] [facility] [place] [address] ABSOLUTE MONO 0.8 x10*3/uL High 0.2-0.6 [facility] Comment on above: Performed By: #### 4 [id number] ####[facility] [id number] [place] [address] ABSOLUTE NEUTROPHIL 4.6 x10*3/uL Normal 2.4-6.6 [facility] Comment on above: Performed By: #### 4 [id number] ####[facility] [id number] [place] [address] Basophils/100 WBC (Bld) 0.9 % Normal [facility] Comment on above: Performed By: #### 4 [id number] ####[facility] [id number] [place] [address] Eosinophils/100 WBC (Bld) 2.0 % Normal [facility] Comment on above: Performed By: #### 4 [id number] ####[facility] [id number] [place] [address] Erythrocyte distribution width (RBC) [Ratio] 17.2 % High 11.5-14.5 [facility] Comment on above: Performed By: #### 4 [id number] ####[facility] [id number] [place] [address] Hematocrit (Bld) [Volume fraction] 37.9 % Normal 33.6-46.8 [facility] Comment on above: Performed By: #### 4 [id number] ####[facility] [id number] [place] [address] Hemoglobin (Bld) [Mass/Vol] 11.3 g/dL Low 11.7-15.8 [facility] Comment on above: Performed By: #### 4 [id number] ####[facility] [id number] [place] [address] Immature granulocytes/100 WBC (Bld) 0.1 % Normal [facility] Comment on above: Performed By: #### 4 [id number] ####[facility] [id number] [place] [address] Lymphocytes/100 WBC (Bld) 25.6 % Normal [facility] Comment on above: Performed By: #### 4 [id number] ####[facility] [id number] [place] [address] MCH (RBC) [Entitic mass] 22.6 pg Low 27.5-32.3 [facility] Comment on above: Performed By: #### 4 [id number] ####[facility] [id number] [place] [address] MCHC (RBC) [Mass/Vol] 29.8 g/dL Low 30.7-35.5 [facility] Comment on above: Performed By: #### 4 [id number] ####[facility] [id number] [place] [address] MCV (RBC) [Entitic vol] 75.8 fL Low 80.2-99 [facility] Comment on above: Performed By: #### 4 [id number] ####[facility] [id number] [place] [address] Monocytes/100 WBC (Bld) 10.5 % Normal [facility] Comment on above: Performed By: #### 4 [id number] ####[facility] [id number] [place] [address] Neutrophils/100 WBC (Bld) 60.9 % Normal [facility] Comment on above: Performed By: #### 4 [id number] ####[facility] [id number] [place] [address] PLATELET COUNT 325 x10*3/uL Normal 150-400 [facility] Comment on above: Performed By: #### 4 [id number] ####[facility] [id number] [place] [address] RED BLOOD CELL COUNT 5.00 x10*6/uL Normal 3.60-5.20 [facility] Comment on above: Performed By: #### 4 [id number] ####[facility] [id number] [place] [address] WHITE BLOOD CELLS 7.6 x10*3/uL Normal 4.3-10.3 [facility] Comment on above: Performed By: #### 4 [id number] ####[facility] [id number] [place] [address] CBC with DifferentialOrdered By: Background Lab on 03-17-2025 Absolute Immature Granulocytes 0 [facility] Age [Time] 75.8 fL Low 80.2 - 99 fL [facility] Age [Time] 22.6 pg Low 27.5 - 32.3 pg [facility] Age [Time] 29.8 g/dL Low 30.7 - 35.5 g/dL [facility] B. burgdorferi IgM IB Ql (CSF) 25.6 % [facility] Basophils (Bld) [#/Vol] 0.1 10*3/uL [facility] Basophils/100 WBC (Body fld) 0.9 % [facility] Eosinophils (Bld) [#/Vol] 2 10*3/uL [facility] Eosinophils (Bld) [#/Vol] 0.8 10*3/uL High [facility] Eosinophils (Bld) [#/Vol] 0.2 10*3/uL [facility] Eosinophils/100 WBC (Bld) 2 % [facility] Erythrocyte distribution width (RBC) [Ratio] 17.2 % High 11.5 - 14.5 % [facility] Hematocrit (Bld) [Volume fraction] 37.9 % 33.6 - 46.8 % [facility] Hexanoylglycine (U) [Moles/Vol] 11.3 g/dL Low 11.7 - 15.8 g/dL [facility] Immature granulocytes/100 WBC (Bld) 0.1 % [facility] Interpretation and review of laboratory results Abnormal [facility] Monocytes/100 WBC (Bld) 10.5 % [facility] Neurotensin (P) [Mass/Vol] 60.9 % [facility] Neutrophils (Bld) [#/Vol] 4.6 10*3/uL [facility] Platelets (Bld) [#/Vol] 325 10*3/uL [facility] RBC (Bld) [#/Vol] 5 10*6/uL [facility] WBC (Bld) [#/Vol] 7.6 10*3/uL [facility] MAGNESIUMon 03-17-2025 Magnesium [Mass/Vol] 1.7 mg/dL Normal 1.6-2.3 [facility] Comment on above: Performed By: #### L [id number], [id number], [id number] #### [facility] LAB [id number] [place] [address] Magnesiumon 03-17-2025 Magnesium [Mass/Vol] 1.7 mg/dL 1.6 - 2 .3 mg/dL [facility] Magnesium [Mass/Vol]on 03-17 Interpretation and review of laboratory results Normal [facility] No Panel Informationon 03-17 [facility] TROPONIN I SERIESon 03-17-20 Troponin I.cardiac [Mass/Vol] ng/mL Normal <=0.033 [facility] Comment on above: Result Comment: Nega tive: No detectable troponin-I. Performed By: #### L [id number], [id number], [id number] #### [facility] LAB [id number] [place] [address] Troponin I - Series (X 3)on 03-17-2025 Interpretation and review of laboratory results Normal [facility] Troponin I.cardiac [Mass/Vol] ng/mL NINF - 0.033 ng/mL [facility] Comment on above: Negative: No detectable troponin-I. [facility] Cardiology Visit Reporton Cardiology Visit Report [facility] [address] [place] [address] OFFICE VISIT Date of Service: 02/23/25 MR#: [id number] Acct: [id number] Name: COURTNEY DENG Rep #: [id number] : 1950 Provider: AYE Hansen Age/Sex: 74/F Location: [facility] Status: Signed HPI HPI History of Present Illness Details: Courtney Deng is a 74-year-old female who presents here today for a cardiovascular follow up. She has a history of coronary artery disease with stenting to her LAD in April 2020. She also has a history of hypertension and hyperlipidemia and diabetes. A few days following her stenting she was admitted to the hospital for acute GI bleed. Upper EGD was normal. She then presented back to the hospital a few days later with chest discomfort, heart catheterization did not demonstrate any new lesions and she was started on reflux. She also says that she has a history of Fatima's esophagitis and needs to have an ablation and we will refer her to the GI specialist. She did continue to have chest discomfort following this and she was started on Ranexa and increased her isosorbide. Pt did undergo a heart cath in March of 2021 for continued chest pain. Medical management was recommended. Pt notes that over that last week she has been having increased SOB with exertion. It does go way when she rests. She has not needed to use any NTG. She does have chest achiness, she would not describe it as pain. She is not sure if she is having any palpitations. She thinks she feels them but her Spo2 monitor does not indicate this. She did have an EGD done, this was okay. 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 Required: No Is patient in pain?: No Allergies atorvastatin Allergy (Severe, Verified 02/23/25 13:11) Other codeine Adverse Reaction (Verified 02/23/25 13:11) Diarrhea metformin Adverse Reaction (Verified 02/23/25 13:11) gi upset naproxen Adverse Reaction (Verified 02/23/25 13:11) Diarrhea nitrofurantoin (From Macrobid) Adverse Reaction (Verified 02/23/25 13:11) Nausea Medications ???Medication ???Instructions ???Recorded ???Confirmed ???Type aspirin 81 mg tablet,delayed 81 mg PO DAILY heart health 02/23/25 History release (Adult Aspirin Regimen) ezetimibe 10 mg tablet (Zetia) 10 mg PO DAILY #30 tabs 11/26/20 0 02/23/25 Rx furosemide 20 mg tablet 20 mg PO DAILY #90 tabs 02/01/21 0 02/23/25 Rx isosorbide mononitrate 60 mg 60 mg PO BID #60 tabs 08/08/21 Rx tablet,extended release 24 hr enalapril maleate 10 mg tablet 10 mg PO DAILY 12/09/22 02/23/25 H istory clopidogrel 75 mg tablet (Plavix) 75 mg PO DAILY #90 tabs 12/21/22 02/23/25 Rx glipizide 5 mg tablet 5 mg PO DAILY 09/07/23 02/23/25 Hi story nitroglycerin 0.4 mg sublingual 0.4 mg sublingual Q5-15M PRN chest 09/07/23 02/23/25 Rx tablet (Nitrostat) pain #25 tabs ranolazine 500 mg tablet,extended 500 mg PO BID #60 tabs 09/07/23 0 02/23/25 Rx release,12 hr (Ranexa) dulaglutide 0.75 mg/0.5 mL 0.75 mg subcut QWEEK 09/24/2402/05 History subcutaneous pen injector (Trulicity) Lactobacillus 25 billion cap PO 02/23/25 02/23/25 History cell-Bifido 25 billion vuob-KSS-nompy capsule atenolol 50 mg tablet 50 mg PO DAILY blood pressure 02/0502/23/25 History pantoprazole 40 mg tablet,delayed 40 mg PO BID 02/23/25 02/23/25 Hi story release Ejection fraction %: 45 Have you fallen in the past year?: No PFSH Medical History GERD (gastroesophageal reflux disease) Fatima's esophagus CHF (congestive heart failure) Former smoker Obesity History of non-ST elevation myocardial infarction (NSTEMI) (04/20/20) GI bleed Atherosclerosis of coronary artery without angina pectoris Osteoarthritis Anxiety Type 2 diabetes mellitus Hyperlipidemia Essential (primary) hypertension Surgical History History of esophageal dilatation History of left heart catheterization (03/31/21) History of coronary artery stent placement (04/19/20) History of open reduction and internal fixation (ORIF) procedure History of tubal ligation Family History Sister Myocardial infarction age 53 Cancer Sister Heart disease Myocardial infarction, Onset Age: 69 Mother Myocardial infarction, Onset Age: 63 Brother Ca (more content not included)... Normal [facility] ANES POSTPROC EVALon 025 ANES POSTPROC EVAL HNO ID: [id number] Author: SHELIA ORTIZ DO Service: ? Author Type: Anesthesiologist Type: Anesthesia Postprocedure Evaluation Filed: 12/16/2024 09:06 Note Text: POST ANESTHESIA EVALUATION NOTE : 1950 Procedure Summary Date: 12/16/24 [place] [facility] [place] Start: 824 Anesthesia Stop: 837 Procedure: EGD - THERAPEUTIC, EUS, OR TUBE INTERVENTIONS Diagnosis: Fatima's esophagus without dysplasia Dysphagia, unspecified type (Established Fatima's esophagus) Scheduled Providers: Alexis Draper MD; Shelia Ortiz DO; Malinda Nicholas APRN.ADDICTION NURSE Responsible Provider: Shelia Ortiz DO Anesthesia Type: MAC ASA Status: 3 Anesthesia Type: MAC Last Vitals Vitals Value Taken Time BP 131/64 12/16/24 0900 Temp 36.7 ?C (98 ?F) 12/16/24 0840 Pulse 74 12/16/24 0840 Resp 18 12/16/24 0840 SpO2 98 % 12/16/24 0906 Vitals shown include unfiled device data. Post Anesthesia Patient Status Patient Evaluation: PACU. PACU/ICU Patient Condition: stable. Anticipated Disposition: phase 2 then home. Neurological Status: aware and responsive. Pulmonary Status: breathing comfortably on room air Airway Control: returned to baseline unsupported. Cardiovascular Status: stable. Pain Management: clinically adequate Postoperative Hydration: acceptable. Intraoperative Events: no significant anesthesia events Post Operative Nausea/Vomiting Status: no significant post operative nausea or vomiting Recommendation: continue current plan of care. Anesthesia Observations No Documentation SIGNATURE: Shelia Ortiz DO PATIENT NAME: Courtney Deng DATE: December 16, 2024 TIME: 9:06 AM CSN: [id number] Normal [facility] ANES PRE-OPon 12-16-2024 ANES PRE-OP HNO ID: [id number] Author: SHELIA ORTIZ DO Service: ? Author Type: Anesthesiologist Type: Anesthesia Preprocedure Evaluation Filed: 12/16/2024 07:59 Note Text: ANESTHESIOLOGY DAY OF SURGERY NOTE : 1950 Procedure Information Date/Time: 12/16/24 0815 Scheduled providers: Alexis Draper MD; Shelia Ortiz DO; Malinda Nicholas APRN.ADDICTION NURSE Procedure: EGD - THERAPEUTIC, EUS, OR TUBE INTERVENTIONS [place] [facility] [place] body mass index is 36.87 kg/m? as calculated from the following: Height as of this encounter: 154.9 cm (5' 1). Weight as of this encounter: 88.5 kg (195 lb 1.7 oz). Most recent hematocrit and potassium results: No results found for this basename: HCT,HEMATOCRIT,K,POTAS SIUM Relevant Problems CARDIO (+) Angina pectoris, unspecified (HCC) (+) Atherosclerotic heart disease of 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 angina pectoris (+) CHF (congestive heart failure) ([facility]) (+) Essential (primary) hypertension ENDO (+) Type 2 diabetes mellitus without complication ([facility]) GI (+) GERD (gastroesophageal reflux disease) (+) Hiatal hernia NEURO-PSYCH (+) History of [place] (myocardial infarction) I - PHYSICAL EVALUATION AIRWAY Patient intubated: No. Tracheostomy tube not present Mallampati: III. TM distance: >3 FB. Neck ROM: full ROM without neurological symptoms. Mouth opening: adequate. Short neck: no. Thick neck: no Ernst present: no II - ANESTHESIA PLAN ASA Score: 3 Anesthetic Plan: MAC The patient is not a current smoker. NPO Status: adequate Beta Carlos Manuel Monitoring Plan Monitoring plan: standard ASA. Post Procedure Analgesic Plan Informed Consent Anesthetic risks, benefits, alternatives, personnel and consent discussed: yes. Patient / Responsible Green Party agrees to proceed: yes Patient / Surrogate agrees to blood products: blood products not planned Significant changes in the patient condition since the History and Physical, not otherwise documented in primary service progress note: no. Potential Anesthesia issues that may suggest increased risk of complications or contraindication to planned procedure: none. Vitals Value Taken Time BP 174/81 12/16/24 0728 Pulse 61 12/16/24 0728 Resp 16 12/16/24 0728 Temp 36.5 ?C (97.7 ?F) 12/16/24 0728 SpO2 97 % 12/16/24 0728 Outpatient Medications as of 12/16/2024 Medication Sig aspirin, enteric coated (ASPIRIN, ENTERIC COATED) 81 mg EC tablet Take 1 tablet by mouth once daily. enalapril (VASOTEC) 10 mg tablet Take 1 tablet by mouth once daily. ezetimibe (ZETIA) 10 mg tablet Take 1 tablet by mouth once daily. glipiZIDE (GLUCOTROL) 5 mg tablet Take 5 mg by mouth. POTASSIUM-99 ORAL Take by mouth. PKSBHGW-LDUHGGSWM-XGMH ORAL Take by mouth. atenolol (TENORMIN) 100 mg tablet TAKE 1/2 (ONE-HALF) TABLET BY MOUTH ONCE DAILY pantoprazole DR (PROTONIX) 40 mg tablet Take 40 mg by mouth once daily. ranolazine ER (RANEXA) 500 mg 12 hr tablet Take 1 tablet by mouth twice daily. isosorbide mononitrate ER (IMDUR) 60 mg 24 hr tablet Take 60 mg by mouth twice daily. Magnesium 250 mg tab Take 250 mg by mouth once daily. cyclobenzaprine (FLEXERIL) 10 mg tablet Take 10 mg by mouth three times a day as needed. TRULICITY 0.75 mg/0.5 mL pen injector INJECT 0.75 MG INTO THE SKIN EVERY 7 DAYS DEXCOM G7 SENSOR grant APPLY 1 SENSOR AND CHANGE EVERY 10 DAYS melatonin 10 mg cap Take 10 mg by mouth. clopidogrel (PLAVIX) 75 mg tablet Take 1 tablet by mouth once daily. nitroglycerin sublingual (NITROQUICK) 0.4 mg SL tablet DISSOLVE 1 TABLET EVERY 5-15 MINUTES NEEDED FOR CHEST PAIN; DO NOT EXCEED 3 DOSES PER EPISODE Ferrous Gluconate (FERGON) 324 mg (38 mg iron) tablet Take 324 mg by mouth three times daily. (Patient not taking: Reported on 11/18/2024) furosemide (LASIX) 20 mg tablet Take 1 tablet by mouth once daily. Facility-Administered Medications as of 12/16/2024 Medication Dose Route Frequency NaCl 0.9% iv infusion 30 mL/hr INTRAVENOUS CONTINUOUS I have interviewed and examined the patient. I have reviewed the medical record and/or the pre-anesthesia evaluation, pertinent labs, and test results. This contains updated information obtained within 48 hours of Surgery/Procedure. SIGNATURE: Shelia Ortiz DO PATIENT NAME: Courtney Deng DATE: December 16, 2024 TIME: 7:58 AM CSN: [id number] Normal [facility] EGD Study observation Cecille roper 12-16-2024 [facility] Gastrointestinal Endoscopy Patient Name: Courtney Deng Procedure Date: 12/16/2024 8:21 AM Date of : 1950 Admit Type: Outpatient Age: 74 Room: [place] [address] Gender: Female Note Status: Finalized Attending MD: Alexis Draper MD, [id number] Procedure: Upper GI endoscopy Indications: Fatima's esophagus Providers: Alexis Draper MD Referring Physician: Bib (pac) Martin (Referring MD) Medicines: See the Anesthesia note for documentation of the administered medications Complications: No immediate complications. Requesting Provider: Procedure: Pre-Anesthesia Assessment: - Prior to the procedure, a History and Physical was performed, and patient medications and allergies were reviewed. The patient's tolerance of previous anesthesia was also reviewed. The risks and benefits of the procedure and the sedation options and risks were discussed with the patient. All questions were answered, and informed consent was obtained. Prior Anticoagulants: The patient has taken no anticoagulant or antiplatelet agents. ASA Grade Assessment: II - A patient with mild systemic disease. After reviewing the risks and benefits, the patient was deemed in satisfactory condition to undergo the procedure. After obtaining informed consent, the endoscope was passed under direct vision. Throughout the procedure, the patient's blood pressure, pulse, and oxygen saturations were monitored continuously. The Endoscope was introduced through the mouth, and advanced to the fourth part of duodenum. I was present and participated during the entire procedure, including non-peguero portions, and during the administration and monitoring of Moderate Sedation. The upper GI endoscopy was accomplished with ease. The patient tolerated the procedure well. Moderate Sedation: Exam was performed under monitored anesthesia care (MAC) Findings: There were esophageal mucosal changes classified as Fatima's stage C1-M2 per [place] criteria, classified as Fatima's stage C2-M2 per [place] criteria present in the distal esophagus. The maximum longitudinal extent of these mucosal changes was 2 cm in length. Mucosa was biopsied with a cold forceps for histology in a targeted manner at intervals of 2 cm in the lower third of the esophagus. A total of 2 specimen bottles were sent to pathology. Impression: - Esophageal mucosal changes classified as Fatima's stage C1-M2 per [place] criteria, classified as Fatima's stage C2-M2 per [place] criteria. Biopsied. Recommendation: - Advance diet as tolerated today. - Continue present medications. - Patient has a contact number available for emergencies. The signs and symptoms of potential delayed complications were discussed with the patient. Return to normal activities tomorrow. Written discharge instructions were provided to the patient. Procedure Code(s): --- Professional --- 03235, Esophagogastroduodenos copy, flexible, transoral; with biopsy, single or multiple --- Technical --- 96312, Esophagogastroduodenos copy, flexible, transoral; with biopsy, single or multiple Diagnosis Code(s): --- Professional --- K22.70, Fatima's esophagus without dysplasia --- Technical --- K22.70, Fatima's esophagus without dysplasia CPT copyright 2020 [employer]. All rights reserved. The codes documented in this report are preliminary and upon civil cadd technician review may be revised to meet current compliance requirements. Attending Participation: I personally performed the entire procedure. Scope In: Scope Out: 8:34:44 AM MD Alexis Mehta MD 12/16/2024 8:42:16 AM This report has been signed electronically by Alexis Draper MD Number (more content not included)... PROVATION [facility] Radiology Study observation (narrative) [facility] GLUCOSE, BLOOD (POC)on 12-16 Glucose [Mass/Vol] 123 mg/dL Abnormal 74 - 99 mg/dL [facility] Comment on above: The Accu-Chek Inform II glucose meter has not been approved for testing on patients receiving intensive medical intervention or therapy and results from this point of care glucose test should not be used for patient management decisions in these cases. Inaccurate results may also occur from other interfering factors, such as N-acetylcysteine (blood concentrations of greater than 5mg/dL), galactose, extremes of hematocrit (<10 or >65), or high doses of ascorbic acid (vitamin C) greater than 3mg/dL. Consider alternate testing mechanisms (e.g. core lab, blood gas instrument) in the above situations. Interpretation and review of laboratory results Abnormal [facility] Pathology biopsy report Kenneth (Tiss)on 12-16-2024 AP DISCLAIMER Normal [facility] Comment on above: Order Comment: Speci men Type: TISSUE SPECIMEN Ordering Facility: [facility] Address: [address] [place] [address] Result Comment: [facility] [place] Test (LDT) Disclaimer: Performance characteristics of immunohistochemical, immunofluorescent, and chromogenic in-situ hybridization tests have been determined by the performing laboratory within [facility]'s [place] Pathology and Laboratory Medicine Department ([facility], [facility], [facility], [facility], [facility], [facility], or [facility]) in a manner consistent with CLIA requirements. One or more of these tests may not have been cleared or approved by the FDA. [facility] is regulated under CLIA as qualified to perform high-complexity testing. These tests are used for clinical purposes. These should not be regarded as investigational or for research. Positive and negative controls stain appropriately. Performed By: #### 6 6121-5 #### [facility] CLIA [id number] [address] [place] [address] LABORATORY CLIA [id number] [address] [place] [address] STATES [facility] CASE REPORT Normal [facility] Comment on above: Order Comment: Speci men Type: TISSUE SPECIMEN Ordering Facility: [facility] Address: [address] [place] [address] Result Comment: Surg [facility] Pathology Report Case: [id number] Authorizing Provider: Alexis Draper MD Collected: 12/16/2024 08:31 AM Ordering Location: [facility] Digestive Received: 12/16/2024 09:11 AM [facility] Pathologist: Ralph Aguilar DO Specimens: A) - Esophagus, Biopsy, @36cm B) - Esophagus, Biopsy, @34cm Performed By: #### 6 6121-5 #### [facility] CLIA [id number] [address] [place] [address] LABORATORY CLIA [id number] [address] [place] [address] [facility] spital Comment on above: Order Comment: Speci men Type: TISSUE SPECIMEN Ordering Facility: [facility] Address: [address] [place] [address] Result Comment: Proc edure: EGD - THERAPEUTIC, EUS, OR TUBE INTERVENTIONS Diagnosis: K22.70 - Fatima's esophagus without dysplasia [ICD-10-CM] R13.10 - Dysphagia, unspecified type [ICD-10-CM] Performed By: #### 6 6121-5 #### [facility] CLIA [id number] [address] [place] [address] [facility] CLIA [id number] [address] [place] [address] FINAL DIAGNOSIS Normal [facility] Comment on above: Order Comment: Speci men Type: TISSUE SPECIMEN Ordering Facility: [facility] Address: [address] [place] [address] Result Comment: A. E neerajagus, at 36 cm, biopsy: Benign esophageal squamous mucosa and benign gastric mucosa with mild chronic gastritis. 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 No dysplasia identified. B. Esophagus, at 34 cm, biopsy: Benign esophageal squamous mucosa with reflux esophagitis like change and benign gastric mucosa with mild chronic gastritis . 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 No dysplasia identified. at 1219 EDT Performed By: #### 6 6121-5 #### [facility] CLIA [id number] [address] [place] [address] LABORATORY CLIA [id number] [address] [place] [address] OF [facility] FINAL PERFORMING LAB Normal [facility] Comment on above: Order Comment: Speci men Type: TISSUE SPECIMEN Ordering Facility: [facility] Address: [address] [place] [address] Result Comment: Diag nostic interpretation performed at: [facility], [address] [place] [address] CLIA# [id number] Skate Maker: Ralph Aguilar DO Performed By: #### 6 6121-5 #### [facility] CLIA [id number] [address] [place] [address] LABORATORY CLIA [id number] [address] [place] [address] GROSS DESCRIPTION [facility] Comment on above: Order Comment: Speci men Type: TISSUE SPECIMEN Ordering Facility: [facility] Address: [address] [place], [place] [address] Result Comment: Jeevan. Justen vences, Biopsy Received in formalin, labeled as esophagus biopsy at 36 cm are 3 pieces of macias, soft tissue aggregating to 1.5 x 0.2 x 0.2 cm. Totally submitted in one cassette. B. Esophagus, Biopsy Received in formalin, labeled as esophagus biopsy at 34 cm are two pieces of macias, soft tissue aggregating to 0.8 x 0.2 x 0.2 cm. Totally submitted in one cassette. CG December 16, 2024 12:32 PM [place] [address] Performed By: #### 6 6121-5 #### [facility] CLIA [id number] [address] [place], [place] [address] [facility] CLIA [id number] [address] [place] [address] MICROSCOPIC DESCRIPTION Normal [facility] Comment on above: Order Comment: Speci men Type: TISSUE SPECIMEN Ordering Facility: [facility] Address: [address] [place] [address] Result Comment: A-B Slide(s) reviewed. Performed By: #### 6 6121-5 #### [facility] CLIA [id number] [address] [place] [address] LABORATORY CLIA [id number] [address] [place] [address] OF [facility] Upper GI endoscopyon 03-11-2 025 Upper GI endoscopy [facility] Gastrointestinal Endoscopy Patient Name: Courtney Deng Procedure Date: 12/16/2024 8:21 AM Date of : 1950 Admit Type: Outpatient Age: 74 Room: [place] [address] Gender: Female Note Status: Finalized Attending MD: Alexis Draper MD, [id number] Procedure: Upper GI endoscopy Indications: Fatima's esophagus Providers: Alexis Draper MD Referring Physician: Bib Restrepo (pac) (Referring ) Medicines: See the Anesthesia note for documentation of the administered medications Complications: No immediate complications. Requesting Provider: Procedure: Pre-Anesthesia Assessment: - Prior to the procedure, a History and Physical was performed, and patient medications and allergies were reviewed. The patient's tolerance of previous anesthesia was also reviewed. The risks and benefits of the procedure and the sedation options and risks were discussed with the patient. All questions were answered, and informed consent was obtained. Prior Anticoagulants: The patient has taken no anticoagulant or antiplatelet agents. ASA Grade Assessment: II - A patient with mild systemic disease. After reviewing the risks and benefits, the patient was deemed in satisfactory condition to undergo the procedure. After obtaining informed consent, the endoscope was passed under direct vision. Throughout the procedure, the patient's blood pressure, pulse, and oxygen saturations were monitored continuously. The Endoscope was introduced through the mouth, and advanced to the fourth part of duodenum. I was present and participated during the entire procedure, including non-peguero portions, and during the administration and monitoring of Moderate Sedation. The upper GI endoscopy was accomplished with ease. The patient tolerated the procedure well. Moderate Sedation: Exam was performed under monitored anesthesia care (MAC) Findings: There were esophageal mucosal changes classified as Fatima's stage C1-M2 per [place] criteria, classified as Fatima's stage C2-M2 per [place] criteria present in the distal esophagus. The maximum longitudinal extent of these mucosal changes was 2 cm in length. Mucosa was biopsied with a cold forceps for histology in a targeted manner at intervals of 2 cm in the lower third of the esophagus. A total of 2 specimen bottles were sent to pathology. Impression: - Esophageal mucosal changes classified as Fatima's stage C1-M2 per [place] criteria, classified as Fatima's stage C2-M2 per [place] criteria. Biopsied. Recommendation: - Advance diet as tolerated today. - Continue present medications. - Patient has a contact number available for emergencies. The signs and symptoms of potential delayed complications were discussed with the patient. Return to normal activities tomorrow. Written discharge instructions were provided to the patient. 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 All rights reserved. The codes documented in this report are preliminary and upon civil cadd technician review may be revised to meet current compliance requirements. Attending Participation: I personally performed the entire procedure. Scope In: Scope Out: 8:34:44 AM MD Alexis Mehta MD 12/16/2024 8:42:16 AM This report has been signed electronically by Alexis Draper MD Number of Addenda: 0 Note Initiated On: 12/16/2024 8:21 AM Estimated Blood Loss: Estimated blood loss: none. [facility] CNOVon 11-18-2024 CN Office Visit (GENUPD ) COURTNEY DENG ([id number]) 1950 F Date Time Provider Department 11/18/24 11:00 AM BIB RESTREPO During your visit today, we recorded the following information about you: Weight Height 88.9 kg 1.549 m Bib Restrepo PA-C 11/18/2024 11:53 AM Signed New Patient Consult REASON FOR VISIT Courtneyjeevan Deng is a 73 year old female who is scheduled for a consult for New Patient (Discuss EGD - states it has been over two years since her last upper scope. History of barretts esophagus ) History of Present Illness: 73-year-old patient ambulatory to clinic today to discuss an EGD also dysphagia. 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 Congestive heart failure (HCC) Hypertension Type 2 diabetes mellitus without complication (HCC) 02/12/2020 PAST SURGICAL HISTORY Procedure Laterality Date EGD W/O BRSH SPEC VARICIES INJ PRQ CARDIAC STENT W/ANGIO 1 VSL FAMILY HISTORY Problem Relation Age of Onset Malig Hyperthermia No Family History Social History Tobacco Use Smoking status: Former Types: Cigarettes Smokeless tobacco: Never Substance Use Topics Alcohol use: Never Drug use: Never MEDICATIONS Current Outpatient Medications Medication Sig Dispense Refill cyclobenzaprine (FLEXERIL) 10 mg tablet Take 10 mg by mouth three times a day as needed. TRULICITY 0.75 mg/0.5 mL pen injector INJECT 0.75 MG INTO THE SKIN EVERY 7 DAYS DEXCOM G7 SENSOR grant APPLY 1 SENSOR AND CHANGE EVERY 10 DAYS melatonin 10 mg cap Take 10 mg by mouth. aspirin, enteric coated (ASPIRIN, ENTERIC COATED) 81 mg EC tablet Take 1 tablet by mouth once daily. clopidogrel (PLAVIX) 75 mg tablet Take 1 tablet by mouth once daily. enalapril (VASOTEC) 10 mg tablet Take 1 tablet by mouth once daily. ezetimibe (ZETIA) 10 mg tablet Take 1 tablet by mouth once daily. glipiZIDE (GLUCOTROL) 5 mg tablet Take 5 mg by mouth. nitroglycerin sublingual (NITROQUICK) 0.4 mg SL tablet DISSOLVE 1 TABLET EVERY 5-15 MINUTES NEEDED FOR CHEST PAIN; DO NOT EXCEED 3 DOSES PER EPISODE POTASSIUM-99 ORAL Take by mouth. [id number] ORAL Take by mouth. atenolol (TENORMIN) 100 mg tablet TAKE 1/2 (ONE-HALF) TABLET BY MOUTH ONCE DAILY pantoprazole DR (PROTONIX) 40 mg tablet Take 40 mg by mouth once daily. ranolazine ER (RANEXA) 500 mg 12 hr tablet Take 1 tablet by mouth twice daily. furosemide (LASIX) 20 mg tablet Take 1 tablet by mouth once daily. isosorbide mononitrate ER (IMDUR) 60 mg 24 hr tablet Take 60 mg by mouth twice daily. Magnesium 250 mg tab Take 250 mg by mouth once daily. Ferrous Gluconate (FERGON) 324 mg (38 mg iron) tablet Take 324 mg by mouth three times daily. (Patient not taking: Reported on 11/18/2024) No current facility-administered medications for this visit. CURRENT ALLERGIES ALLERGIES Allergen Reactions Atorvastatin Unknown Blackberry Hives Cephalexin Hcl Intolerance Codeine Unknown, GI Upset Doxycycline GI Upset Stomach felt like it was on fire Metformin Unknown Naproxen GI Upset, Vomiting Nitrofurantoin Unknown Increased BP Benadryl Allergy De* GI Upset High does made her sick to her stomach Review of Systems Constitutional: Negative for chills, fever and weight loss. HENT: Negative for sore throat and tinnitus. Respiratory: Negative for cough, shortness of breath and wheezing. Cardiovascular: Positive for chest pain. Negative for palpitations and leg swelling. Gastrointestinal: Positive for diarrhea. Negative for blood in stool, constipation, nausea and vomiting. Genitourinary: Negative for flank pain, frequency and urgency. Musculoskeletal: Negative for falls and joint pain. Skin: Negative for itching and rash. Neurological: Negative for dizziness, seizures and headaches. Endo/Heme/Allergies: Bruises/bleeds easily. Psychiatric/Behavioral : Positive for depression. The patient is not nervous/anxious. PHYSICAL EXAMINATION Ht 5' 1 (1.55m) Wt 196 lb (88.9kg) BMI 37.05 kg/(m2). General Appearance: Well appearing, alert, in no acute distress, well-hydrated, well nourished. Skin: Skin color, texture, turgor normal, Head: Normocephalic, Oropharynx: Lips, mucosa, and tongue normal, Neck: Supple, Lungs: Unlabored on room air Heart: RR Extremities: No deformities, edema, Neuro: Gait normal. Abdomen: Abdomen soft, non-tender. Bowel sounds normal. No masses, (more content not included)... Normal [facility] HISTORY PHYSICALon HISTORY PHYSICAL HNO ID: [id number] Author: BIB RESTREPO PA-C Service: ? Author Type: Physician Nursing Scheduler Type: H&P Filed: 11/18/2024 11:53 Note Text: New Patient Consult REASON FOR VISIT Courtney Deng is a 73 year old female who is scheduled for a consult for New Patient (Discuss EGD - states it has been over two years since her last upper scope. History of barretts esophagus ) History of Present Illness: 73-year-old patient ambulatory to clinic today to discuss an EGD also dysphagia. 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 Congestive heart failure (HCC) Hypertension Type 2 diabetes mellitus without complication (HCC) 02/12/2020 PAST SURGICAL HISTORY Procedure Laterality Date EGD W/O BRSH SPEC VARICIES INJ PRQ CARDIAC STENT W/ANGIO 1 VSL FAMILY HISTORY Problem Relation Age of Onset Malig Hyperthermia No Family History Social History Tobacco Use Smoking status: Former Types: Cigarettes Smokeless tobacco: Never Substance Use Topics Alcohol use: Never Drug use: Never MEDICATIONS Current Outpatient Medications Medication Sig Dispense Refill cyclobenzaprine (FLEXERIL) 10 mg tablet Take 10 mg by mouth three times a day as needed. TRULICITY 0.75 mg/0.5 mL pen injector INJECT 0.75 MG INTO THE SKIN EVERY 7 DAYS DEXCOM G7 SENSOR grant APPLY 1 SENSOR AND CHANGE EVERY 10 DAYS melatonin 10 mg cap Take 10 mg by mouth. aspirin, enteric coated (ASPIRIN, ENTERIC COATED) 81 mg EC tablet Take 1 tablet by mouth once daily. clopidogrel (PLAVIX) 75 mg tablet Take 1 tablet by mouth once daily. enalapril (VASOTEC) 10 mg tablet Take 1 tablet by mouth once daily. ezetimibe (ZETIA) 10 mg tablet Take 1 tablet by mouth once daily. glipiZIDE (GLUCOTROL) 5 mg tablet Take 5 mg by mouth. nitroglycerin sublingual (NITROQUICK) 0.4 mg SL tablet DISSOLVE 1 TABLET EVERY 5-15 MINUTES NEEDED FOR CHEST PAIN; DO NOT EXCEED 3 DOSES PER EPISODE POTASSIUM-99 ORAL Take by mouth. [id number]-[id number] ORAL Take by mouth. atenolol (TENORMIN) 100 mg tablet TAKE 1/2 (ONE-HALF) TABLET BY MOUTH ONCE DAILY pantoprazole DR (PROTONIX) 40 mg tablet Take 40 mg by mouth once daily. ranolazine ER (RANEXA) 500 mg 12 hr tablet Take 1 tablet by mouth twice daily. furosemide (LASIX) 20 mg tablet Take 1 tablet by mouth once daily. isosorbide mononitrate ER (IMDUR) 60 mg 24 hr tablet Take 60 mg by mouth twice daily. Magnesium 250 mg tab Take 250 mg by mouth once daily. Ferrous Gluconate (FERGON) 324 mg (38 mg iron) tablet Take 324 mg by mouth three times daily. (Patient not taking: Reported on 11/18/2024) No current facility-administered medications for this visit. CURRENT ALLERGIES ALLERGIES Allergen Reactions Atorvastatin Unknown Blackberry Hives Cephalexin Hcl Intolerance Codeine Unknown, GI Upset Doxycycline GI Upset Stomach felt like it was on fire Metformin Unknown Naproxen GI Upset, Vomiting Nitrofurantoin Unknown Increased BP Benadryl Allergy De* GI Upset High does made her sick to her stomach Review of Systems Constitutional: Negative for chills, fever and weight loss. HENT: Negative for sore throat and tinnitus. Respiratory: Negative for cough, shortness of breath and wheezing. Cardiovascular: Positive for chest pain. Negative for palpitations and leg swelling. Gastrointestinal: Positive for diarrhea. Negative for blood in stool, constipation, nausea and vomiting. Genitourinary: Negative for flank pain, frequency and urgency. Musculoskeletal: Negative for falls and joint pain. Skin: Negative for itching and rash. Neurological: Negative for dizziness, seizures and headaches. Endo/Heme/Allergies: Bruises/bleeds easily. Psychiatric/Behavioral : Positive for depression. The patient is not nervous/anxious. PHYSICAL EXAMINATION Ht 5' 1 (1.55m) Wt 196 lb (88.9kg) BMI 37.05 kg/(m2). General Appearance: Well appearing, alert, in no acute distress, well-hydrated, well nourished. Skin: Skin color, texture, turgor normal, Head: Normocephalic, Oropharynx: Lips, mucosa, and tongue normal, Neck: Supple, Lungs: Unlabored on room air Heart: RR Extremities: No deformities, edema, Neuro: Gait normal. Abdomen: Abdomen soft, non-tender. Bowel sounds normal. 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 Normal [facility] SCREENING W TOMOon 11-10 [facility] SCREENING W PADMINI * * *Final Report* * * DATE OF EXAM: Nov 10 2024 11:52AM UDW 0582 - MARY SCREENING W PADMINI / PROCEDURE REASON: Encounter for screening mammogram for breast cancer * * * * Physician Interpretation * * * * [facility] [address] [place] [address] #[id number] - [facility] SCREENING W PADMINI HISTORY: 73 year-old patient seen for screening. No current complaints. Patient states no personal history of breast cancer. Patient states no personal history of ovarian cancer. COMPARISON STUDIES: The present examination has been compared to prior imaging studies dated 08/06/2018 and 09/18/2019. MAMMOGRAM TECHNIQUE: The study was acquired using full field digital technology and interpreted from soft copy. Digital Breast Tomosynthesis (DBT) images were obtained and used to assist in the interpretation of this examination. MAMMOGRAM FINDINGS: There are scattered areas of fibroglandular density. There are calcifications in both breasts. No suspicious masses, calcifications or other abnormalities are seen in either breast. IMPRESSION: There is no mammographic evidence of malignancy. Routine screening mammogram is recommended. Annual mammogram will be due in 1 year. BI-RADS Category 2: Benign RISK: Based on the Tyrer-Cuzick (TC) risk assessment model, this patient has a 2.4% lifetime risk of developing breast cancer, meaning they are at average risk for developing breast cancer. However, this is only an estimate based on available history provided on the patient's questionnaire. We encourage all patients to talk with their providers about these results, further recommendations for managing breast health, and appropriate supplemental screening options if the patient has dense breast tissue. Interpreting Radiologist: Laz Allen M.D. Electronically signed on: 11/18/2024 Reverse Engineer: EMILIA Transcribe Date/Time: Nov 10 2024 11:29A Dictated by : LAZ ALLEN MD This examination was interpreted and the report reviewed and electronically signed by: LAZ ALLEN MD on Nov 18 2024 6:35PM EST [id number] [facility] Yelitza 10-24-2024 K[facility]ALA Telephone ([facility] COURTNEY DENG ([id number]) 1950 F Date Time Provider Department 10/24/24 ESTEBAN VÁZQUEZ During your visit today, we recorded the following information about you: Aranza Bustillo 10/24/2024 10:58 AM Signed Courtney Deng has been referred to .[facility] in [place] for Nutrition therapy. P [phone] F [phone] The referral has been faxed and there office will call the patient to schedule. The patient was informed. Allergies As of Date: 10/24/2024 Noted Allergy Reaction ATORVASTATIN 05/27/2020 16 - Unknown BLACKBERRY 01/11/2022 4 - Hives CEPHALEXIN HCL 06/18/2024 5 - Intolerance CODEINE 04/01/2015 16 - Unknown 8 - GI Upset DOXYCYCLINE 12/29/2022 8 - GI Upset Comments: Stomach felt like it was on fire METFORMIN 05/27/2020 16 - Unknown NAPROXEN 08/13/2015 8 - GI Upset 11 - Vomiting NITROFURANTOIN 01/10/2022 16 - Unknown Comments: Increased BP BENADRYL ALLERGY DECONGESTANT 06/19/2022 8 - GI Upset Comments: High does made her sick to her stomach Date Reviewed: 10/22/2024 Reviewed by: Esteban Vázquez PA-C - Fully Assessed Prescriptions as of 10/24/2024 - cyclobenzaprine (FLEXERIL) 10 mg tablet Take 10 mg by mouth three times a day as needed. - TRULICITY 0.75 mg/0.5 mL pen injector INJECT 0.75 MG INTO THE SKIN EVERY 7 DAYS - DEXCOM G7 SENSOR grant APPLY 1 SENSOR AND CHANGE EVERY 10 DAYS - melatonin 10 mg cap Take 10 mg by mouth. - aspirin, enteric coated (ASPIRIN, ENTERIC COATED) 81 mg EC tablet Take 1 tablet by mouth once daily. - clopidogrel (PLAVIX) 75 mg tablet Take 1 tablet by mouth once daily. - enalapril (VASOTEC) 10 mg tablet Take 1 tablet by mouth once daily. - ezetimibe (ZETIA) 10 mg tablet Take 1 tablet by mouth once daily. - glipiZIDE (GLUCOTROL) 5 mg tablet Take 5 mg by mouth. - nitroglycerin sublingual (NITROQUICK) 0.4 mg SL tablet DISSOLVE 1 TABLET EVERY 5-15 MINUTES NEEDED FOR CHEST PAIN; DO NOT EXCEED 3 DOSES PER EPISODE - POTASSIUM-99 ORAL Take by mouth. - [id number] ORAL Take by mouth. - atenolol (TENORMIN) 100 mg tablet TAKE 1/2 (ONE-HALF) TABLET BY MOUTH ONCE DAILY - Ferrous Gluconate (FERGON) 324 mg (38 mg iron) tablet Take 324 mg by mouth three times daily. - pantoprazole DR (PROTONIX) 40 mg tablet Take 40 mg by mouth once daily. - ranolazine ER (RANEXA) 500 mg 12 hr tablet Take 1 tablet by mouth twice daily. - furosemide (LASIX) 20 mg tablet Take 1 tablet by mouth once daily. - isosorbide mononitrate ER (IMDUR) 60 mg 24 hr tablet Take 60 mg by mouth twice daily. - Magnesium 250 mg tab Take 250 mg by mouth once daily. 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 [K22.70] 06/29/2022 Hiatal hernia [K44.9] 06/29/2022 Essential (primary) hypertension [I10] 05/11/2017 GERD (gastroesophageal reflux disease) [K21.9] 01/11/2022 Hyperlipemia, mixed [E78.2] 05/11/2017 Obesity, unspecified [E66.9] 06/29/2022 Type 2 diabetes mellitus without complication (*02/12/2020 Angina pectoris, unspecified (HCC) [I20.9] 07/23/2024 BCC (basal cell carcinoma of skin) [C44.91] 07/23/2024 CHF (congestive heart failure) (HCC) [I50.9] 07/23/2024 History of WI (myocardial infarction) [I25.2] 03/18/2020 Diverticulitis [K57.92] 10/22/2024 History of heart artery stent [Z95.5] 10/22/2024 Upper back pain [M54.9] 10/22/2024 Encounter Status:Closed by ARANZA BUSTILLO on 10/24/24 [facility] ALBUMIN/CREATININE RATIO, UR INEon 10-22-2024 Albumin DL <= 20 mg/L (U) [Mass/Vol] 13.0 mg/L [facility] Albumin/Creatinine (U) [Mass ratio] 52 mg/g High NINF - 30 mg/g [facility] Comment on above: Adult Male and Femal e Nephrotic Criteria: <30 mg/g is considered normal to mildly increased 30-300 mg/g is considered moderately increased >300 mg/g is considered severely increased KDIGO. (2013). KDIGO 2012 Clinical Practice Guideline for the Evaluation and Management of Chronic Kidney Disease. Official Journal of the International Society of Nephrology, 3(1), 1-150. Creatinine (U) [Mass/Vol] 24.9 mg/dL 20.0 - 300.0 mg/dL [facility] Interpretation and review of laboratory results Abnormal [facility] Albumin DL <= 20 mg/L (U) [Mass/Vol] 13.0 mg/L Normal [facility] Comment on above: Order Comment: Speci men Type: URINE SPECIMEN Ordering Facility: [facility] Address: [address] [place] [address] Performed By: #### U ACR #### [facility] CLIA [id number] [address] [place] [address] [place] [facility] Albumin/Creatinine (U) [Mass ratio] 52 mg/g High <30 [facility] Comment on above: Order Comment: Speci men Type: URINE SPECIMEN Ordering Facility: [facility] Address: [address] [place] [address] Result Comment: Adul t Male and Female Nephrotic Criteria: <30 mg/g is considered normal to mildly increased 30-300 mg/g is considered moderately increased >300 mg/g is considered severely increased KDIGO. (2013). KDIGO 2012 Clinical Practice Guideline for the Evaluation and Management of Chronic Kidney Disease. Official Journal of the International Society of Nephrology, 3(1), 1-150. Performed By: #### U ACR #### [facility] CLIA [id number] [address] [place], [place] [address] [place] Creatinine (U) [Mass/Vol] 24.9 mg/dL Normal 20.0-300.0 [facility] Comment on above: Order Comment: Speci men Type: URINE SPECIMEN Ordering Facility: [facility] Address: [address], [place] [address] Performed By: #### U ACR #### [facility] CLIA [id number] [address] [place] [address] [place] [facility] CNOVon 10-22-2024 CNOV Office Visit ([facility] ) SOWMYACOURTNEY Mckeon ([id number]) 1950 F Date Time Provider Department 10/22/24 1:00 PM ESTEBAN VÁZQUEZ [facility] During your visit today, we recorded the following information about you: Temperature Pulse Respiration Blood pressure 98 degrees 63/minute 18/minute 126/70 Weight Height 89.4 kg 1.549 m Esteban Vázquez PA-C 10/22/2024 3:49 PM Signed Subjective Courtney Mckeon Sowmya is a 73 year old female here today for a new patient exam. Concern(s) today include: Lost her in February, this has been a hard transition. Does have a great support network with her sister in law, children, and neighbors. Notes intermittent episodes of foul odor to urine. Last occurred a few days ago. Would like urine checked today. Type 2 DM: Managed by previous PCP. Last A1c 6.7% on 07/11/24. Trulicity was added to her regimen ~05/2024. Also on Glipizide daily. Could not tolerate Metformin. Uses Dexcom. Reports readings fluctuate from the 200s to the 50s. Hyperglycemia symptoms include sweating, hypoglycemia symptoms include shakiness. Up to date on eye exam. No neuropathy. HTN: Well controlled and stable on atenolol and enalapril. HLD: Due for labs. On Zetia. Listed intolerance to atorvastatin. CHF/Hx WI and stents: Follows with cardiology. They manage her medications such as Ranexa, nitroglycerin, Imdur, and lasix. Barrettrolf: Was getting annual scopes, has been about 2 years since last EGD. Diagnosed 3-4 years ago. Over last 3-4 weeks patient has noted intermittent dysphagia when eating bread or meat. Other specialists: - Cardiology, Layla Thomas and Dr. Jose Luis Landa, annually. Currently seeing them for recently developed chest pain, has a stress test scheduled for tomorrow. Next appt is Oct 30, 2024. - Dermatology in [place] as needed due to patient's history of basal cell (nose) - Dr. Velasquez is her eye doctor. Up to date on eye exam. Her medications were reviewed today and her list is now up to date. She is compliant on taking her medications: Yes She is tolerating her medication(s) without side effects: Yes She is following an appropriate diet for her medical problems: No, its hard being alone. States it is difficult finding foods that she can eat that don't bother her stomach or affect her sugars. She is getting some exercise in? Yes, cleaning her house, shovel driveway. Social History Tobacco Use Smoking status: Former Types: Cigarettes Smokeless tobacco: Never Substance Use Topics Alcohol use: Never Drug use: Never REVIEW OF SYSTEMS: Review of Systems Constitutional: Negative for chills, diaphoresis, fatigue and fever. HENT: Positive for trouble swallowing. Negative for congestion, ear pain, rhinorrhea, sore throat and voice change. Eyes: Negative. Respiratory: Negative for cough, chest tightness, shortness of breath and wheezing. Cardiovascular: Positive for chest pain. Negative for palpitations and leg swelling. Gastrointestinal: Negative for abdominal pain, blood in stool, constipation, diarrhea, nausea and vomiting. Genitourinary: Negative. Positive for urine odor Musculoskeletal: Negative for arthralgias, back pain, myalgias and neck pain. Skin: Negative for rash. Neurological: Negative for dizziness, seizures, syncope, weakness, light-headedness, numbness and headaches. Psychiatric/Behavioral : Negative for behavioral problems, hallucinations, self-injury, sleep disturbance and suicidal ideas. The patient is not hyperactive. Grief Objective PHYSICAL EXAMINATION: BP 126/70 (BP Site: Right Arm, BP Position: Sitting, BP Cuff Size: Regular Adult) Pulse 63 Temp 36.7 ?C (98 ?F) (Temporal) Resp 18 Ht 154.9 cm (5' 1) Wt 89.4 kg (197 lb) SpO2 98% BMI 37.22 kg/m? BMI 37.22 kg/(m2) Physical Exam Vitals reviewed. Constitutional: General: She is not in acute distress. Appearance: Normal appearance. She is obese. She is not ill-appearing or diaphoretic. HENT: Head: Normocephalic and atraumatic. Nose: Nose normal. Mouth/Throat: Mouth: Mucous membranes are moist. Eyes: Extraocular Movements: Extraocular movements intact. Conjunctiva/sclera: Conjunctivae normal. Cardiovascular: Rate and Rhythm: Normal rate. Pulmonary: Effort: Pulmonary effort is normal. Abdominal: General: Abdomen is flat. Musculoskeletal: General: Normal range of motion. Cervical back: Normal range of motion. Skin: General: Skin is warm and dry. Findings: No rash. Neurological: General: No focal deficit present. Mental Status: She is alert and oriented to person, place, and time. Gait: Gait normal. Psychiatric: Mood and Affect: Mood normal. Behavior: Behavior normal. UA results: GLUCOSE UA (POCT) Negative mg/dL Negative BILIRUBIN UA (POCT) Negative Negative KETONE UA (POCT) Negative mg/dL Negative SPECIFIC GRAVITY (more content not included)... Normal [facility] 10-22-2024 [facility] COURTNEY DENG ([id number]) 1950 F Date Time Provider Department 10/22/24 ESTEBAN VÁZQUEZ [facility] During your visit today, we recorded the following information about you: Jailene Leigh 10/22/2024 2:34 PM Signed Courtney Deng [id number] Courtney Deng has been referred to [facility] for a mammogram. Pre [place] [phone] I set this up for November 10 at 9:15 am. This patient has been informed via patient was at the office while the appointment was made. Allergies As of Date: 10/22/2024 Noted Allergy Reaction ATORVASTATIN 05/27/2020 16 - Unknown BLACKBERRY 01/11/2022 4 - Hives CEPHALEXIN HCL 06/18/2024 5 - Intolerance CODEINE 04/01/2015 16 - Unknown 8 - GI Upset DOXYCYCLINE 12/29/2022 8 - GI Upset Comments: Stomach felt like it was on fire METFORMIN 05/27/2020 16 - Unknown NAPROXEN 08/13/2015 8 - GI Upset 11 - Vomiting NITROFURANTOIN 01/10/2022 16 - Unknown Comments: Increased BP BENADRYL ALLERGY DECONGESTANT 06/19/2022 8 - GI Upset Comments: High does made her sick to her stomach Date Reviewed: 10/22/2024 Reviewed by: Esteban Vázquez PA-C - Fully Assessed Reason for Visit: mammogram [Other] Prescriptions as of 10/22/2024 - cyclobenzaprine (FLEXERIL) 10 mg tablet Take 10 mg by mouth three times a day as needed. - TRULICITY 0.75 mg/0.5 mL pen injector INJECT 0.75 MG INTO THE SKIN EVERY 7 DAYS - DEXCOM G7 SENSOR grant APPLY 1 SENSOR AND CHANGE EVERY 10 DAYS - melatonin 10 mg cap Take 10 mg by mouth. - aspirin, enteric coated (ASPIRIN, ENTERIC COATED) 81 mg EC tablet Take 1 tablet by mouth once daily. - clopidogrel (PLAVIX) 75 mg tablet Take 1 tablet by mouth once daily. - enalapril (VASOTEC) 10 mg tablet Take 1 tablet by mouth once daily. - ezetimibe (ZETIA) 10 mg tablet Take 1 tablet by mouth once daily. - glipiZIDE (GLUCOTROL) 5 mg tablet Take 5 mg by mouth. - nitroglycerin sublingual (NITROQUICK) 0.4 mg SL tablet DISSOLVE 1 TABLET EVERY 5-15 MINUTES NEEDED FOR CHEST PAIN; DO NOT EXCEED 3 DOSES PER EPISODE - POTASSIUM-99 ORAL Take by mouth. - [id number] ORAL Take by mouth. - atenolol (TENORMIN) 100 mg tablet TAKE 1/2 (ONE-HALF) TABLET BY MOUTH ONCE DAILY - Ferrous Gluconate (FERGON) 324 mg (38 mg iron) tablet Take 324 mg by mouth three times daily. - pantoprazole (PROTONIX) 40 mg tablet Take 40 mg by mouth once daily. - ranolazine ER (RANEXA) 500 mg 12 hr tablet Take 1 tablet by mouth twice daily. - furosemide (LASIX) 20 mg tablet Take 1 tablet by mouth once daily. - isosorbide mononitrate ER (IMDUR) 60 mg 24 hr tablet Take 60 mg by mouth twice daily. - Magnesium 250 mg tab Take 250 mg by mouth once daily. 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] 06/29/2022 Hiatal hernia [K44.9] 06/29/2022 Essential (primary) hypertension [I10] 05/11/2017 GERD (gastroesophageal reflux disease) [K21.9] 01/11/2022 Hyperlipemia, mixed [E78.2] 05/11/2017 Obesity, unspecified [E66.9] 06/29/2022 Type 2 diabetes mellitus without complication (*02/12/2020 Angina pectoris, unspecified (HCC) [I20.9] 07/23/2024 BCC (basal cell carcinoma of skin) [C44.91] 07/23/2024 CHF (congestive heart failure) (HCC) [I50.9] 07/23/2024 History of WI (myocardial infarction) [I25.2] 03/18/2020 Diverticulitis [K57.92] 10/22/2024 Encounter Status:Closed by J[facility]ENE LEIGH [facility] COURTNEY DEN[facility] ([id number]) 1950 F Date Time Provider Department 10/22/24 ESTEBAN VÁZQUEZ ALL[facility] During your visit today, we recorded the following information about you: Esteban Vázquez PA-C 10/22/2024 3:53 PM Signed Please let the patient know her urine looked OK! No evidence of infection. No glucose. Her A1c was 6.2! This is great. With this result, let's think about increasing the Trulicity dose and decreasing the Glipizide. Glipizide is likely contributing to her episodes of low blood sugar. Something to think about before her next appointment with me! Let me know if she has any questions. Esteban Merritt) DREA Vázquez Tonya, MA 10/22/2024 3:56 PM Signed Patient advised Jewell Joel MA Allergies As of Date: 10/22/2024 Noted Allergy Reaction ATORVASTATIN 05/27/2020 16 - Unknown BLACKBERRY 01/11/2022 4 - Hives CEPHALEXIN HCL 06/18/2024 5 - Intolerance CODEINE 04/01/2015 16 - Unknown 8 - GI Upset DOXYCYCLINE 12/29/2022 8 - GI Upset Comments: Stomach felt like it was on fire METFORMIN 05/27/2020 16 - Unknown NAPROXEN 08/13/2015 8 - GI Upset 11 - Vomiting NITROFURANTOIN 01/10/2022 16 - Unknown Comments: Increased BP BENADRYL ALLERGY DECONGESTANT 06/19/2022 8 - GI Upset Comments: High does made her sick to her stomach Date Reviewed: 10/22/2024 Reviewed by: Esteban Vázquez PA-C - Fully Assessed Reason for Visit: Results [95] Prescriptions as of 10/22/2024 - cyclobenzaprine (FLEXERIL) 10 mg tablet Take 10 mg by mouth three times a day as needed. - TRULICITY 0.75 mg/0.5 mL pen injector INJECT 0.75 MG INTO THE SKIN EVERY 7 DAYS - DEXCOM G7 SENSOR grant APPLY 1 SENSOR AND CHANGE EVERY 10 DAYS - melatonin 10 mg cap Take 10 mg by mouth. - aspirin, enteric coated (ASPIRIN, ENTERIC COATED) 81 mg EC tablet Take 1 tablet by mouth once daily. - clopidogrel (PLAVIX) 75 mg tablet Take 1 tablet by mouth once daily. - enalapril (VASOTEC) 10 mg tablet Take 1 tablet by mouth once daily. - ezetimibe (ZETIA) 10 mg tablet Take 1 tablet by mouth once daily. - glipiZIDE (GLUCOTROL) 5 mg tablet Take 5 mg by mouth. - nitroglycerin sublingual (NITROQUICK) 0.4 mg SL tablet DISSOLVE 1 TABLET EVERY 5-15 MINUTES NEEDED FOR CHEST PAIN; DO NOT EXCEED 3 DOSES PER EPISODE - POTASSIUM-99 ORAL Take by mouth. - [id number] ORAL Take by mouth. - atenolol (TENORMIN) 100 mg tablet TAKE 1/2 (ONE-HALF) TABLET BY MOUTH ONCE DAILY - Ferrous Gluconate (FERGON) 324 mg (38 mg iron) tablet Take 324 mg by mouth three times daily. - pantoprazole DR (PROTONIX) 40 mg tablet Take 40 mg by mouth once daily. - ranolazine ER (RANEXA) 500 mg 12 hr tablet Take 1 tablet by mouth twice daily. - furosemide (LASIX) 20 mg tablet Take 1 tablet by mouth once daily. - isosorbide mononitrate ER (IMDUR) 60 mg 24 hr tablet Take 60 mg by mouth twice daily. - Magnesium 250 mg tab Take 250 mg by mouth once daily. 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] 06/29/2022 Hiatal hernia [K44.9] 06/29/2022 Essential (primary) hypertension [I10] 05/11/2017 GERD (gastroesophageal reflux disease) [K21.9] 01/11/2022 Hyperlipemia, mixed [E78.2] 05/11/2017 Obesity, unspecified [E66.9] 06/29/2022 Type 2 diabetes mellitus without complication (*02/12/2020 Angina pectoris, unspecified (HCC) [I20.9] 07/23/2024 BCC (basal cell carcinoma of skin) [C44.91] 07/23/2024 CHF (congestive heart failure) (HCC) [I50.9] 07/23/2024 History of WI (myocardial infarction) [I25.2] 03/18/2020 Diverticulitis [K57.92] 10/22/2024 History of heart artery stent [Z95.5] 10/22/2024 Upper back pain [M54.9] 10/22/2024 Encounter Status:Closed by JEWELL JOEL on 10/22/24 [facility] Telephone ([facility]) COURTNEY DENG ([id number]) 1950 F Date Time Provider Department 10/22/24 ESTEBAN VÁZQUEZ [facility] During your visit today, we recorded the following information about you: Jailene Leigh 10/22/2024 2:37 PM Signed Courtney Deng [id number] Courtney Deng has been referred to General Surgery Dr Parker. 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 They were in the office while scheduling Allergies As of Date: 10/22/2024 Noted Allergy Reaction ATORVASTATIN 05/27/2020 16 - Unknown BLACKBERRY 01/11/2022 4 - Hives CEPHALEXIN HCL 06/18/2024 5 - Intolerance CODEINE 04/01/2015 16 - Unknown 8 - GI Upset DOXYCYCLINE 12/29/2022 8 - GI Upset Comments: Stomach felt like it was on fire METFORMIN 05/27/2020 16 - Unknown NAPROXEN 08/13/2015 8 - GI Upset 11 - Vomiting NITROFURANTOIN 01/10/2022 16 - Unknown Comments: Increased BP BENADRYL ALLERGY DECONGESTANT 06/19/2022 8 - GI Upset Comments: High does made her sick to her stomach Date Reviewed: 10/22/2024 Reviewed by: Esteban Vázquez PA-C - Fully Assessed Reason for Visit: general surgery [Other] Prescriptions as of 10/22/2024 - cyclobenzaprine (FLEXERIL) 10 mg tablet Take 10 mg by mouth three times a day as needed. - TRULICITY 0.75 mg/0.5 mL pen injector INJECT 0.75 MG INTO THE SKIN EVERY 7 DAYS - DEXCOM G7 SENSOR grant APPLY 1 SENSOR AND CHANGE EVERY 10 DAYS - melatonin 10 mg cap Take 10 mg by mouth. - aspirin, enteric coated (ASPIRIN, ENTERIC COATED) 81 mg EC tablet Take 1 tablet by mouth once daily. - clopidogrel (PLAVIX) 75 mg tablet Take 1 tablet by mouth once daily. - enalapril (VASOTEC) 10 mg tablet Take 1 tablet by mouth once daily. - ezetimibe (ZETIA) 10 mg tablet Take 1 tablet by mouth once daily. - glipiZIDE (GLUCOTROL) 5 mg tablet Take 5 mg by mouth. - nitroglycerin sublingual (NITROQUICK) 0.4 mg SL tablet DISSOLVE 1 TABLET EVERY 5-15 MINUTES NEEDED FOR CHEST PAIN; DO NOT EXCEED 3 DOSES PER EPISODE - POTASSIUM-99 ORAL Take by mouth. - [id number]-[id number]-RERE ORAL Take by mouth. - atenolol (TENORMIN) 100 mg tablet TAKE 1/2 (ONE-HALF) TABLET BY MOUTH ONCE DAILY - Ferrous Gluconate (FERGON) 324 mg (38 mg iron) tablet Take 324 mg by mouth three times daily. - pantoprazole DR (PROTONIX) 40 mg tablet Take 40 mg by mouth once daily. - ranolazine ER (RANEXA) 500 mg 12 hr tablet Take 1 tablet by mouth twice daily. - furosemide (LASIX) 20 mg tablet Take 1 tablet by mouth once daily. - isosorbide mononitrate ER (IMDUR) 60 mg 24 hr tablet Take 60 mg by mouth twice daily. - Magnesium 250 mg tab Take 250 mg by mouth once daily. 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] 06/29/2022 Hiatal hernia [K44.9] 06/29/2022 Essential (primary) hypertension [I10] 05/11/2017 GERD (gastroesophageal reflux disease) [K21.9] 01/11/2022 Hyperlipemia, mixed [E78.2] 05/11/2017 Obesity, unspecified [E66.9] 06/29/2022 Type 2 diabetes mellitus without complication (*02/12/2020 Angina pectoris, unspecified (HCC) [I20.9] 07/23/2024 BCC (basal cell carcinoma of skin) [C44.91] 07/23/2024 CHF (congestive heart failure) (HCC) [I50.9] 07/23/2024 History of WI (myocardial infarction) [I25.2] 03/18/2020 Diverticulitis [K57.92] 10/22/2024 Encounter Status:Closed by JAILENE LEIGH on 10/22/24 [facility] HEMOGLOBIN A1C (POC)on 10-22 HbA1c (Bld) [Mass fraction] 6.2 % Abnormal 4.3 - 5.6 % [facility] Comment on above: Location:[place] [address], [place], [place], [facility] Point of care (POC) Hemoglobin A1c (HGBA1C) testing is intended to assess glucose control and provide a management tool for patients known to have diabetes and their healthcare providers. Target HGBA1C levels may depend on specific clinical circumstances. POC HGBA1C is not intended for use as a diagnostic or screening test; laboratory-based testing should be used for diagnostic purposes. The following information is supplemental and may not be applicable to specific diabetes management situations: The POC device senior industrial engineer provides a normal range of 4.2% to 6.5% for the HGBA1C POC test. However, the [place] [employer] guidelines indicate that patients with HGBA1C in the range of 5.7% to 6.4% are at increased risk for development of diabetes and that intervention by lifestyle modification may be beneficial. A HGBA1C level greater than or equal to 6.5% is considered diagnostic of diabetes, pending confirmatory testing. Use of HGBA1C testing to evaluate glucose control may not be appropriate for patients with hemoglobin variants or other conditions (e.g. anemia) that alter red blood cell lifespan. Interpretation and review of laboratory results Abnormal [facility] UA DIP, URINE (POC)on 2024 BILIRUBIN UA (POCT) Negative Negative [facility] CLARITY UA (POCT) Slightly Cloudy Cl [facility] COLOR UA (POCT) Light yellow [facility] GLUCOSE UA (POCT) Negative Negative mg/dL [facility] Hemoglobin Ql (U) Trace-lysed Abnormal Negative [facility] Interpretation and review of laboratory results Abnormal [facility] KETONE UA (POCT) Negative Negative mg/dL [facility] LEUKOCYTES UA (POCT) Small Abnormal Negative [facility] NITRITE UA (POCT) Negative Negative [facility] PH UA (POCT) 5.5 4.5 - 8.0 [facility] Protein Ql (U) Negative Negative mg/dL [facility] SPECIFIC GRAVITY UA (POCT) 1.010 1.005 - 1.030 [facility] UROBILINOGEN UA (POCT) 0.2 Lacie l E.U./dL [facility] Location:[facility], [address], [place], [place], [address] [place] [address] POINT OF CARE [facility] BNP,B-Type NATRIURETIC PEPTI Deandra 09-24-2024 Natriuretic peptide B (Bld) [Mass/Vol] 21.0 pg/mL Normal 0-100 [facility] Comment on above: Performed By: #### L [id number], L500.2500, L100.0100 #### [facility] [address] [place], [address] Basic Metabolic Profile (BMP )on 09-24-2024 BUN/CRE 13.0 RATIO Normal 10-20 [facility] Comment on above: Performed By: #### L 503.6620, L500.2500, L100.0100 #### [facility] [address] [place], [address] CA,Total 9.3 mg/dL Normal 8.5-10.1 [facility] Comment on above: Performed By: #### L 503.6620, L500.2500, L100.0100 #### [facility] [address] [place], [address] Chloride [Moles/Vol] 105 mmol/L Normal 98-107 [facility] Comment on above: Performed By: #### L 503.6620, L500.2500, L100.0100 #### [facility] [address] [place], [address] CO2 [Moles/Vol] 29.0 mmol/L Normal 21.0-32.0 [facility] Comment on above: Performed By: #### L 503.6620, L500.2500, L100.0100 #### [facility] [address] [place], [address] Creatinine [Mass/Vol] 1.23 mg/dL High 0.55-1.02 [facility] Comment on above: Result Comment: The validity of the calculated GFR GFRAA in patients over 70 years has not been determined. Clinical correlation is essential. Performed By: #### L 503.6620, L500.2500, L100.0100 #### [facility] [address] [place], [address] EST GFR - AA 55 mL/min Low >60 [facility] Comment on above: Result Comment: Afri can Armenian GFR Calc Performed By: #### L [id number], L500.2500, L100.0100 #### [facility] [address] [place], [address] GAP 4 Low 5-15 [facility] Comment on above: Performed By: #### L 503.6620, L500.2500, L100.0100 #### [facility] [facility] [address] [place], [address] GFR/1.73 sq M.predicted among non-blacks MDRD (S/P/Bld) [Vol rate/Area] 46 mL/min/{1.73_m2} Low >60 [facility] Comment on above: Result Comment: Non- GFR Calc Performed By: #### L 503.6620, L500.2500, L100.0100 #### [facility] [address] [place], [address] Glucose [Mass/Vol] 115 mg/dL High 74-106 [facility] Comment on above: Result Comment: Fast ing Glucose result from 100 to 125 mg/dL suggests IMPAIRED HOMEOSTASIS per A.D.A. criteria. Performed By: #### L 503.6620, L500.2500, L100.0100 #### [facility] [address] [place], [address] Potassium [Moles/Vol] 3.9 mmol/L Normal 3.5-5.1 [facility] Comment on above: Performed By: #### L 503.6620, L500.2500, L100.0100 #### [facility] [address] [place], [address] Sodium [Moles/Vol] 138 mmol/L Normal 136-145 [facility] Comment on above: Performed By: #### L 503.6620, L500.2500, L100.0100 #### [facility] [address] [place], [address] Urea nitrogen [Mass/Vol] 16 mg/dL Normal 7-18 [facility] Comment on above: Performed By: #### L 503.6620, L500.2500, L100.0100 #### [facility] [address] [place], [address] CBC W/Diff, Automatedon 12- Absolute Lymph 2.54 X10 3/uL Normal 0.83-4.51 [facility] Comment on above: Performed By: #### L 503.6620, L500.2500, L100.0100 #### [facility] [address] [place], [address] Absolute Neut 4.9 X10 3/uL Normal 2.0-7.7 [facility] Comment on above: Performed By: #### L 503.6620, L500.2500, L100.0100 #### [facility] [address] [place], [address] Basophils/100 WBC (Bld) 0.6 % Normal 0-1 [facility] Comment on above: Performed By: #### L 503.6620, L500.2500, L100.0100 #### [facility] [address] [place], [address] Eosinophils/100 WBC (Bld) 7.3 % High 0-5 [facility] Comment on above: Performed By: #### L 503.6620, L500.2500, L100.0100 #### [facility] [address] [place], [address] Erythrocyte distribution width (RBC) [Ratio] 14.8 % High 11.6-14.6 [facility] Comment on above: Performed By: #### L 503.6620, L500.2500, L100.0100 #### [facility] [address] [place] [place], [address] Hematocrit (Bld) [Volume fraction] 43.7 % Normal 37-47 [facility] Comment on above: Performed By: #### L 503.6620, L500.2500, L100.0100 #### [facility] [address] [place], [address] Hemoglobin (Bld) [Mass/Vol] 13.3 g/dL Normal 12.0-15.0 [facility] Comment on above: Performed By: #### L 503.6620, L500.2500, L100.0100 #### [facility] [address] [place], [address] IG% 0.400 Normal 0.0-0.9 [facility] Comment on above: Result Comment: IG% - Immature Granulocytes (promyelocytes, myelocytes and metamyelocytes) > 1% indicates that a LEFT SHIFT is Present. Performed By: #### L 503.6620, L500.2500, L100.0100 #### [facility] [address] [place], [address] Lymphocytes/100 WBC (Bld) 28.3 % Normal 19-41 [facility] Comment on above: Performed By: #### L 503.6620, L500.2500, L100.0100 #### [facility] [address] [place], [address] MCH (RBC) [Entitic mass] 24.5 pg Low 27.0-32.0 [facility] Comment on above: Performed By: #### L 503.6620, L500.2500, L100.0100 #### [facility] [address] [place], [address] MCHC (RBC) [Mass/Vol] 30.4 g/dL Low 32-36 [facility] Comment on above: Performed By: #### L 503.6620, L500.2500, L100.0100 #### [facility] [address] [place], [address] MCV (RBC) [Entitic vol] 80.5 fL Low 81-99 [facility] Comment on above: Performed By: #### L 503.6620, L500.2500, L100.0100 #### [facility] [address] [place], [address] Monocytes/100 WBC (Bld) 9.0 % Normal 0-10 [facility] Comment on above: Performed By: #### L 503.6620, L500.2500, L100.0100 #### [facility] [address] [place], [address] Neutrophils/100 WBC (Bld) 54.4 % Normal 47-70 [facility] Comment on above: Performed By: #### L 503.6620, L500.2500, L100.0100 #### [facility] [address] [place], [address] Nucleated RBC (Bld) [#/Vol] 0 10*3/uL Normal 0-5 [facility] Comment on above: Performed By: #### L 503.6620, L500.2500, L100.0100 #### [facility] [address] [place], [address] Platelet mean volume (Bld) [Entitic vol] 9.8 fL Normal 6.2-12.0 [facility] Comment on above: Performed By: #### L 503.6620, L500.2500, L100.0100 #### [facility] [address] [place], [address] Platelets (Bld) [#/Vol] 351 10*3/uL Normal 150-450 [facility] Comment on above: Performed By: #### L 503.6620, L500.2500, L100.0100 #### [facility] [address] [place], [address] RBC (Bld) [#/Vol] 5.43 10*6/uL High 4.2-5.4 [facility] Comment on above: Performed By: #### L 503.6620, L500.2500, L100.0100 #### [facility] [address] [place], [address] RDW SD 42.7 fl Normal 35.1-43.9 [facility] Comment on above: Performed By: #### L 503.6620, L500.2500, L100.0100 #### [facility] [address] [place], [address] WBC (Bld) [#/Vol] 9.0 10*3/uL Normal 4.4-11.0 [facility] Comment on above: Performed By: #### L 503.6620, L500.2500, L100.0100 #### [facility] [address] [place], [address] Cardiology Visit Reporton Cardiology Visit Report [facility] [address] [place] [address] OFFICE VISIT Date of Service: 09/24/24 MR#: [id number] Acct: [id number] Name: COURTNEY DENG Rep #: [id number] : 1950 Provider: AYE Hansen Age/Sex: 73/F Location: [facility] [place] Status: Signed HPI HPI History of Present Illness Details: Courtney Deng is a 73-year-old female who presents here today for a cardiovascular follow up. She has a history of coronary artery disease with stenting to her LAD in April 2020. She also has a history of hypertension and hyperlipidemia and diabetes. A few days following her stenting she was admitted to the hospital for acute GI bleed. Upper EGD was normal. She then presented back to the hospital a few days later with chest discomfort, heart catheterization did not demonstrate any new lesions and she was started on reflux. She also says that she has a history of Fatima's esophagitis and needs to have an ablation and we will refer her to the GI specialist. She did continue to have chest discomfort following this and she was started on Ranexa and increased her isosorbide. Pt did undergo a heart cath in March of 2021 for continued chest pain. Medical management was recommended. She does sometimes have CP. It is on/off. She notes that it is mainly with activity. It will last under 5 minutes. She then notes at times she feels her heart fluttering. She also notes that she is more SOB with exertion. This is newer. She is still having GI issues and has not been able to see her GI specialist. She has not needed to use any NTG. 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: No Accompanied by: Self Is patient in pain?: Yes (left upper back) Pain scale (1-10): 6 Allergies atorvastatin Allergy (Severe, Verified 09/24/24 15:27) Other codeine Adverse Reaction (Verified 09/24/24 15:27) Diarrhea metformin Adverse Reaction (Verified 09/24/24 15:27) gi upset naproxen Adverse Reaction (Verified 09/24/24 15:27) Diarrhea nitrofurantoin (From Macrobid) Adverse Reaction (Verified 09/24/24 15:27) Nausea Medications ???Medication ???Instructions ???Recorded ???Confirmed ???Type aspirin 81 mg tablet,delayed 81 mg PO DAILY heart health 03/30/20 09/24/24 History release (Adult Aspirin Regimen) atenolol 50 mg tablet 50 mg PO DAILY blood pressure #90 08/25/20 09/24/24 Rx tabs potassium 99 mg tablet 99 mg PO DAILY 09/06/20 09/24/24 History ezetimibe 10 mg tablet (Zetia) 10 mg PO DAILY #30 tabs 11/26/20 09/24/24 Rx furosemide 20 mg tablet 20 mg PO DAILY #90 tabs 02/01/21 09/24/24 Rx isosorbide mononitrate 60 mg 60 mg PO BID #60 tabs 08/08/21 09/24/24 Rx tablet,extended release 24 hr pantoprazole 40 mg tablet,delayed 40 mg PO DAILY 06/29/22 09/24/24 History release enalapril maleate 10 mg tablet 10 mg PO DAILY 12/09/22 09/24/24 History clopidogrel 75 mg tablet (Plavix) 75 mg PO DAILY #90 tabs 12/21/22 09/24/24 Rx glipizide 5 mg tablet 5 mg PO DAILY 09/07/23 09/24/24 History nitroglycerin 0.4 mg sublingual 0.4 mg sublingual Q5-15M PRN chest 09/07/23 09/24/24 Rx tablet (Nitrostat) pain #25 tabs ranolazine 500 mg tablet,extended 500 mg PO BID #60 tabs 09/07/23 09/24/24 Rx release,12 hr (Ranexa) dulaglutide 0.75 mg/0.5 mL 0.75 mg subcut QWEEK 09/24/24 09/24/24 History subcutaneous pen injector (Trulicity) Ejection fraction %: 45 Have you fallen in the past year?: No Nurse's Note: New SOB with walking long distances. Has not been exercising per norm d/t cold weather and joint pain. Discuss handicap placard order. [facility] Medical History GERD (gastroesophageal reflux disease) Fatima's esophagus CHF (congestive heart failure) Former smoker Obesity History of non-ST elevation myocardial infarction (NSTEMI) (04/20/20) GI bleed Atherosclerosis of coronary artery without angina pectoris Osteoarthritis Anxiety Type 2 diabetes mellitus Hyperlipidemia Essential (primary) hypertension Surgical History History of left heart catheterization (03/31/21) History of coronary artery stent placement (04/19/20) History of open reduction and internal fixation (ORIF) procedure History of tubal ligation Family History Sister Myocardial infarction age 53 Cancer Sister Dece (more content not included)... Normal [facility] CT CERVICAL SPINE WITHOUT IV CONTRASTon 08-14-2024 CT CERVICAL SPINE WITHOUT IV CONTRAST EXAM: CT CERVICAL SPINE WITHOUT IV CONTRAST HISTORY: Cervical radiculopathy, no red flags COMPARISON: None. TECHNIQUE: Multi-detector CT imaging of the cervical spine is performed. Coronal and sagittal reconstructions were obtained. Dose reduction techniques were achieved by using automated exposure control and/or adjustment of mA and/or kV according to patient size and/or use of iterative reconstruction technique. FINDINGS: There is normal alignment of the cervical spine. The prevertebral soft tissues, atlanto-dental interspace and craniocervical junction are normal. Degenerative changes with mildly reduced intervertebral disc height, endplate osteophytes and facet arthropathy. There are no acute fractures or subluxations of the cervical spine. Prevertebral soft tissues are within normal limits. C4-C5: Mild to moderate left and mild right facet arthropathy. Mild bilateral foraminal narrowing. No significant spinal canal stenosis. The visualized lung apices are unremarkable. CT myelogram or MRI of the cervical spine may be performed, if there is further concern. IMPRESSION: 1. No acute cervical fracture or malalignment. 2. Mild degenerative changes in the cervical spine. No critical spinal canal foraminal stenosis. Pt states pain has been going on for 3 weeks. PT feels like its pulling off her shoulder. Pt using icy hot, Voltaren jell, ice and heat rotation, and Biofreeze. Pt was out doing yard work 3 weeks ago. Normal [employer] [facility] CT Cervical spine WO contras ton 08-14-2024 1. No acute cervical fracture or malalignment. 2. Mild degenerative changes in the cervical spine. No critical spinal canal foraminal stenosis. [facility] EXAM: CT CERVICAL SPINE WITHOUT IV CONTRAST HISTORY: Cervical radiculopathy, no red flags COMPARISON: None. TECHNIQUE: Multi-detector CT imaging of the cervical spine is performed. Coronal and sagittal reconstructions were obtained. Dose reduction techniques were achieved by using automated exposure control and/or adjustment of mA and/or kV according to patient size and/or use of iterative reconstruction technique. FINDINGS: There is normal alignment of the cervical spine. The prevertebral soft tissues, atlanto-dental interspace and craniocervical junction are normal. Degenerative changes with mildly reduced intervertebral disc height, endplate osteophytes and facet arthropathy. There are no acute fractures or subluxations of the cervical spine. Prevertebral soft tissues are within normal limits. C4-C5: Mild to moderate left and mild right facet arthropathy. Mild bilateral foraminal narrowing. No significant spinal canal stenosis. The visualized lung apices are unremarkable. CT myelogram or MRI of the cervical spine may be performed, if there is further concern. [facility] Andreea Dawson M D - 08/14/2024 EXAM: CT CERVICAL SPINE WITHOUT IV CONTRAST HISTORY: Cervical radiculopathy, no red flags COMPARISON: None. TECHNIQUE: Multi-detector CT imaging of the cervical spine is performed. Coronal and sagittal reconstructions were obtained. Dose reduction techniques were achieved by using automated exposure control and/or adjustment of mA and/or kV according to patient size and/or use of iterative reconstruction technique. FINDINGS: There is normal alignment of the cervical spine. The prevertebral soft tissues, atlanto-dental interspace and craniocervical junction are normal. Degenerative changes with mildly reduced intervertebral disc height, endplate osteophytes and facet arthropathy. There are no acute fractures or subluxations of the cervical spine. Prevertebral soft tissues are within normal limits. C4-C5: Mild to moderate left and mild right facet arthropathy. Mild bilateral foraminal narrowing. No significant spinal canal stenosis. The visualized lung apices are unremarkable. CT myelogram or MRI of the cervical spine may be performed, if there is further concern. IMPRESSION: 1. No acute cervical fracture or malalignment. 2. Mild degenerative changes in the cervical spine. No critical spinal canal foraminal stenosis. [employer] [facility] Radiology Study observation (narrative) [facility] Cervical spine WO contras tOrdered By: Andreea Dawson on 08-14-2024 [facility] Work Phone: XR SHOULDER LEFT MIN 2 VIEWS (ROUTINE)on 08-14-2024 XR SHOULDER LEFT MIN 2 VIEWS (ROUTINE) EXAM: XR SHOULDER LEFT MIN 2 VIEWS (ROUTINE) HISTORY: pain COMPARISON: 04/16/2022 TECHNIQUE: 4 views. FINDINGS: There are osteophytic changes. There is no fracture or dislocation. There are no lytic or blastic bony lesions. There is osseous demineralization There is soft tissue calcification along the superolateral aspect of the humeral head consistent with calcific tendinitis of the rotator cuff. IMPRESSION: Degenerative joint disease with osseous demineralization and rotator cuff calcific tendinitis. No acute osseous injury. Pt states pain has been going on for 3 weeks. PT feels like its pulling off her shoulder. Pt using icy hot, Voltaren jell, ice and heat rotation, and Biofreeze. Pt was out doing yard work 3 weeks ago. Normal [facility] XR Shoulder - left Viewson 1 10-14-2023 Degenerative joint disease with osseous demineralization and rotator cuff calcific tendinitis. No acute osseous injury. [facility] EXAM: XR SHOULDER LE FT MIN 2 VIEWS (ROUTINE) HISTORY: pain COMPARISON: 04/16/2022 TECHNIQUE: 4 views. FINDINGS: There are osteophytic changes. There is no fracture or dislocation. There are no lytic or blastic bony lesions. There is osseous demineralization There is soft tissue calcification along the superolateral aspect of the humeral head consistent with calcific tendinitis of the rotator cuff. [facility] Santo Chopra M D - 08/14/2024 EXAM: XR SHOULDER LEFT MIN 2 VIEWS (ROUTINE) HISTORY: pain COMPARISON: 04/16/2022 TECHNIQUE: 4 views. FINDINGS: There are osteophytic changes. There is no fracture or dislocation. There are no lytic or blastic bony lesions. There is osseous demineralization There is soft tissue calcification along the superolateral aspect of the humeral head consistent with calcific tendinitis of the rotator cuff. IMPRESSION: Degenerative joint disease with osseous demineralization and rotator cuff calcific tendinitis. No acute osseous injury. [facility] Radiology Study observation (narrative) [facility] XR Shoulder - left ViewsOrde red By: Santo Chopra on 08-14-2024 [facility] Work Phone: Yelitza 07-25-2024 ABIGAILN Telephone (PANEWO) COURTNEY DENG ([id number]) 1950 F Date Time Provider Department 07/25/24 LATISHA CALABRESE During your visit today, we recorded the following information about you: Fadumo Avina LPN 07/25/2024 2:37 PM Signed Called and left message for patient to call back. Received letter back from Cardiology. Patient is to hold Plavix for 5 days prior to procedure, resume after and continue the Aspirin. Copy of letter sent to [email or web address] through Onbase scanning. Fadumo Avina LPN Allergies As of Date: 07/25/2024 Noted Allergy Reaction ATORVASTATIN 05/27/2020 16 - Unknown CODEINE 04/01/2015 16 - Unknown 8 - GI Upset METFORMIN 05/27/2020 16 - Unknown NAPROXEN 08/13/2015 8 - GI Upset 11 - Vomiting NITROFURANTOIN 01/10/2022 16 - Unknown Comments: Increased BP BENADRYL ALLERGY DECONGESTANT 06/19/2022 8 - GI Upset Comments: High does made her sick to her stomach Date Reviewed: 07/23/2024 Reviewed by: Latisha Calabrese, IN FLIGHT TECHNICIAN.BANK CREDIT CARD COLLECTION CLERK - Fully Assessed Prescriptions as of 07/30/2024 - aspirin, enteric coated (ASPIRIN, ENTERIC COATED) 81 mg EC tablet Take 1 tablet by mouth once daily. - clopidogrel (PLAVIX) 75 mg tablet Take 1 tablet by mouth once daily. - DULAGLUTIDE SUBCUTANEOUS Inject 0.75 mg subcutaneously one time a week. - enalapril (VASOTEC) 10 mg tablet Take 1 tablet by mouth once daily. - ezetimibe (ZETIA) 10 mg tablet Take 1 tablet by mouth once daily. - glipiZIDE (GLUCOTROL) 5 mg tablet Take 5 mg by mouth. - nitroglycerin sublingual (NITROQUICK) 0.4 mg SL tablet DISSOLVE 1 TABLET EVERY 5-15 MINUTES NEEDED FOR CHEST PAIN; DO NOT EXCEED 3 DOSES PER EPISODE - POTASSIUM-99 ORAL Take by mouth. - [id number] ORAL Take by mouth. - atenolol (TENORMIN) 100 mg tablet TAKE 1/2 (ONE-HALF) TABLET BY MOUTH ONCE DAILY - Cholecalciferol, Vitamin D3, 50 mcg (2,000 unit) cap Take 1 capsule by mouth once daily. - Ferrous Gluconate (FERGON) 324 mg (38 mg iron) tablet Take 324 mg by mouth three times daily. - pantoprazole DR (PROTONIX) 40 mg tablet Take 40 mg by mouth once daily. - ranolazine ER (RANEXA) 500 mg 12 hr tablet Take 1 tablet by mouth twice daily. - furosemide (LASIX) 20 mg tablet Take 1 tablet by mouth once daily. - isosorbide mononitrate ER (IMDUR) 60 mg 24 hr tablet Take 60 mg by mouth twice daily. - Magnesium 250 mg tab Take 250 mg by mouth once daily. Problem List As Of Date 07/25/2024 Noted Resolved Atherosclerotic heart disease of ewiiaapaayp coronar*09/21/2021 Fatima's esophagus without dysplasia [K22.70] 06/29/2022 Hiatal hernia [K44.9] 06/29/2022 Essential (primary) hypertension [I10] 05/11/2017 GERD (gastroesophageal reflux disease) [K21.9] 01/11/2022 Hyperlipemia, mixed [E78.2] 05/11/2017 Obesity, unspecified [E66.9] 06/29/2022 Type 2 diabetes mellitus without complication (*02/12/2020 Angina pectoris, unspecified (HCC) [I20.9] 07/23/2024 BCC (basal cell carcinoma of skin) [C44.91] 07/23/2024 CHF (congestive heart failure) (HCC) [I50.9] 07/23/2024 Encounter Status:Closed by FADUMO AVINA on 07/30/24 [facility] Yelitza 07-23-2024 KAMALA Telephone (PANEWO) SOWMYACOURTNEY Linda ([id number]) 1950 F Date Time Provider Department 07/23/24 LATISHA CALABRESE During your visit today, we recorded the following information about you: Latihsa Calabrese APRN.CNP 07/23/2024 10:00 AM Signed Please request last cardiac OV and testing from [facility] [place]. DOS 07/29/2024 Fadumo Avina LPN 07/23/2024 10:31 AM Signed Printed last office visit, echo and stress test from appening. Fax request sent to [facility] for the EKG rhythm strip. Fadumo Avina LPN Allergies As of Date: 07/23/2024 Noted Allergy Reaction ATORVASTATIN 05/27/2020 16 - Unknown CODEINE 04/01/2015 16 - Unknown 8 - GI Upset METFORMIN 05/27/2020 16 - Unknown NAPROXEN 08/13/2015 8 - GI Upset 11 - Vomiting NITROFURANTOIN 01/10/2022 16 - Unknown Comments: Increased BP BENADRYL ALLERGY DECONGESTANT 06/19/2022 8 - GI Upset Comments: High does made her sick to her stomach Date Reviewed: 07/23/2024 Reviewed by: Latisha Calabrese APRN.CNP - Fully Assessed Reason for Visit: Request Outside Medical Records [[id number]] Prescriptions as of 07/23/2024 - aspirin, enteric coated (ASPIRIN, ENTERIC COATED) 81 mg EC tablet Take 1 tablet by mouth once daily. - clopidogrel (PLAVIX) 75 mg tablet Take 1 tablet by mouth once daily. - DULAGLUTIDE SUBCUTANEOUS Inject 0.75 mg subcutaneously one time a week. - enalapril (VASOTEC) 10 mg tablet Take 1 tablet by mouth once daily. - ezetimibe (ZETIA) 10 mg tablet Take 1 tablet by mouth once daily. - glipiZIDE (GLUCOTROL) 5 mg tablet Take 5 mg by mouth. - nitroglycerin sublingual (NITROQUICK) 0.4 mg SL tablet DISSOLVE 1 TABLET EVERY 5-15 MINUTES NEEDED FOR CHEST PAIN; DO NOT EXCEED 3 DOSES PER EPISODE - POTASSIUM-99 ORAL Take by mouth. - [id number] ORAL Take by mouth. - atenolol (TENORMIN) 100 mg tablet TAKE 1/2 (ONE-HALF) TABLET BY MOUTH ONCE DAILY - Cholecalciferol, Vitamin D3, 50 mcg (2,000 unit) cap Take 1 capsule by mouth once daily. - Ferrous Gluconate (FERGON) 324 mg (38 mg iron) tablet Take 324 mg by mouth three times daily. - pantoprazole DR (PROTONIX) 40 mg tablet Take 40 mg by mouth once daily. - ranolazine ER (RANEXA) 500 mg 12 hr tablet Take 1 tablet by mouth twice daily. - furosemide (LASIX) 20 mg tablet Take 1 tablet by mouth once daily. - isosorbide mononitrate ER (IMDUR) 60 mg 24 hr tablet Take 60 mg by mouth twice daily. - Magnesium 250 mg tab Take 250 mg by mouth once daily. Problem List As Of Date 07/23/2024 Noted Resolved Atherosclerotic heart disease of ewiiaapaayp coronar*09/21/2021 Fatima's esophagus without dysplasia [K22.70] 06/29/2022 Hiatal hernia [K44.9] 06/29/2022 Essential (primary) hypertension [I10] 05/11/2017 GERD (gastroesophageal reflux disease) [K21.9] 01/11/2022 Hyperlipemia, mixed [E78.2] 05/11/2017 Obesity, unspecified [E66.9] 06/29/2022 Type 2 diabetes mellitus without complication (*02/12/2020 Angina pectoris, unspecified (HCC) [I20.9] 07/23/2024 BCC (basal cell carcinoma of skin) [C44.91] 07/23/2024 CHF (congestive heart failure) (HCC) [I50.9] 07/23/2024 Encounter Status:Closed by REMSENBEEFADUMO on 07/23/24 Normal [facility] HISTORY PHYSICALon HISTORY PHYSICAL HNO ID: [id number] Author: LATISHA CALABRESE APRN.ABIGAIL Service: ? Author Type: Nurse Practitioner Type: H&P Filed: 07/23/2024 10:13 Note Text: [facility] HISTORY AND PHYSICAL EXAMINATION SERVICE DATE: 07/22/2024 SERVICE TIME: 10:11 AM PRIMARY CARE PHYSICIAN: Ralph Gibson DO Assessment Patient has the following medical conditions which may affect demario-operative course: Essential (primary) hypertension Assessment: controlled on rx Last 14 BP Last 14 Encounter BP Readings: Date: BP: 07/21/2022 124/60 07/21/2022 147/65 07/04/2022 168/85 Hyperlipemia, mixed Assessment: c/w statin 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 Denies CP, palpitations, sob, new or worsening cardiac symptoms. 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 Reviewed to hold injectable 7 FULL days prior to upcoming procedure, pt verbalized understanding. Last A1c 6.7 07/11/2024 in C/E Obesity, unspecified Assessment: Body mass index is 37.79 kg/m?. Angina pectoris, unspecified (HCC) Assessment: following cardiology, controlled on rx, last OV requested BCC (basal cell carcinoma of skin) Assessment: s/p excision CHF (congestive heart failure) (HCC) Assessment: controlled on rx, following cardiology, last OV requested Aly Activity Status Index: METS: Climb a flight of stairs or walk up a hill (5.50 METs) DASI Score: 5.5 Patient denies any chest pain or undue shortness of breath with the above physical activity. Clinical Frailty Scale: 3. Well, with treated comorbid disease STOP-Bang Score: Snores loudly Has or is being treated for high blood pressure BMI greater than 35 kg/m2 Patient over 50 years old Has a large neck Denies feeling tired, fatigued, or sleepy during the daytime Has not been observed to stop breathing or choking/gasping during sleep Non-male patient STOP-Bang Score: 5 [id number] Score: Age: 65-74 Sex: female CHF history: Yes Hypertension history: Yes Stroke/TIA/thromboembo lism history: No Vascular disease history: Yes Diabetes history: Yes [id number] Score: 6 ANESTHESIA FINDINGS: Intubation History: No history of difficult intubation Significant Anesthesia Considerations: none Airway History: No history of difficult airway I - PHYSICAL EVALUATION AIRWAY Patient intubated: No. Tracheostomy tube not present Mallampati: I. TM distance: >3 FB. Neck ROM: full ROM without neurological symptoms. Mouth opening: adequate. Short neck: no. Thick neck: yes Ernst present: no Lip Bite Test: I Microretrognathia/Micr onagthia/Recessed Chin: No DENTAL Dental findings: teeth intact. II - ANESTHESIA PLAN Anesthetic Plan: other Beta Carlos Manuel Monitoring Plan Post Procedure Analgesic Plan Prepared for Surgery: optimally prepared for surgery, pending [see comment]. Records requested from [facility] [place] CONSULTS: Patient does not require consults for optimization at this time Planned Anesthetic: other anesthesia choice The Following Tests/Procedures Have Been Initiated: Orders Placed This Encounter aspirin, enteric coated (ASPIRIN, ENTERIC COATED) 81 mg EC tablet Sig: Take 1 tablet by mouth once daily. clopidogrel (PLAVIX) 75 mg tablet Sig: Take 1 tablet by mouth once daily. DULAGLUTIDE SUBCUTANEOUS Sig: Inject 0.75 mg subcutaneously one time a week. enalapril (VASOTEC) 10 mg tablet Sig: Take 1 tablet by mouth once daily. ezetimibe (ZETIA) 10 mg tablet Sig: Take 1 tablet by mouth once daily. glipiZIDE (GLUCOTROL) 5 mg tablet Sig: Take 5 mg by mouth. nitroglycerin sublingual (NITROQUICK) 0.4 mg SL tablet Sig: DISSOLVE 1 TABLET EVERY 5-15 MINUTES NEEDED FOR CHEST PAIN; DO NOT EXCEED 3 DOSES PER EPISODE DISCONTD: omeprazole (PRILOSEC) 20 mg capsule Sig: Take 20 mg by mouth. POTASSIUM-99 ORAL Sig: Take by mouth. [id number] ORAL Sig: Take by mouth. This is a virtual visit using MyChart video visit. It required patient-provider interaction for the medical decision making as documented below. REASON FOR VISIT: Courtney Deng is a 73 year old female who is scheduled for * No surgery found * at the request of @REFPROV2@ for consultation. My final recommendation will be communicated back to the requesting physician by way of shared medical record or letter. Subjective The patient has the following: COVID-19 Immunization Status Overdue - Covid-19 Vaccine () Overdue since 06/08/2024 12/30/2020 Imm Admin: COVID-19 origina (more content not included)... Normal [facility] NURSING PROGon 07-22-2024 NURSING PROG HNO ID: [id number] Author: KEVIN ALVA RN Service: ? Author Type: Registered Nurse Type: Nursing Progress Note Filed: 07/22/2024 15:45 Note Text: GI Pre-Procedure Spoke with patient: Yes Confirmed date scheduled and patient report time: Yes Procedure Planned:Esophagogastro duodenoscopy(EGD) with or without biopies based on clinical findings, removal of polyps or lesions Is the patient on blood thinners?no Procedure Instructions given to patient: Yes, and they verbalized their understanding of instructions given Patient instructed to take prescribed preparation prior to procedure:Yes, and they verbalized their understanding of instructions given Patient instructed to have family/friend present for procedure transport home:Patient/patient underwriting account representative was told that if they do not have a responsible adult accompany them to their procedure; and remain in the endoscopy area until they are discharged; that their procedure cannot be done with sedation or anesthesia and may be cancelled. and They verbalized their understanding and agree to have a responsible adult accompany the patient to their procedure and remain in the endoscopy area. Any barriers to Patient learning: Patient/Patient Copy Reader responded appropriately on phone. Type of instruction given: Verbal by telephone contact. Kevin Alva RN Normal [facility] CBC AND DIFFERENTIALon 07-11 ABSOLUTE BASOPHIL 0.1 x10*3/uL Normal 0.0-0.1 [facility] Comment on above: Performed By: #### 4 [id number] #### [facility] [address] ABSOLUTE EOSINOPHIL 0.2 x10*3/uL Normal 0.1-0.3 [facility] Comment on above: Performed By: #### 4 [id number] #### [address] ABSOLUTE IMMATURE GRANULOCYTES 0.0 x10*3/uL Normal 0.0-0.1 [facility] Comment on above: Performed By: #### 4 [id number] #### [address] ABSOLUTE LYMPH 1.8 x10*3/uL Normal 1.2-3.3 [facility] Comment on above: Performed By: #### 4 [id number] #### [address] ABSOLUTE MONO 0.8 x10*3/uL High 0.2-0.6 [facility] Comment on above: Performed By: #### 4 [id number] #### [address] ABSOLUTE NEUTROPHIL 4.1 x10*3/uL Normal 2.4-6.6 [facility] Comment on above: Performed By: #### 4 [id number] #### [address] Basophils/100 WBC (Bld) 1.4 % Normal [facility] Comment on above: Performed By: #### 4 [id number] #### [address] Eosinophils/100 WBC (Bld) 2.3 % Normal [facility] Comment on above: Performed By: #### 4 [id number] #### [address] Erythrocyte distribution width (RBC) [Ratio] 14.1 % Normal 11.5-14.5 [facility] Comment on above: Performed By: #### 4 [id number] #### [address] Hematocrit (Bld) [Volume fraction] 45.7 % Normal 33.6-46.8 [facility] Comment on above: Performed By: #### 4 [id number] #### [address] Hemoglobin (Bld) [Mass/Vol] 13.9 g/dL Normal 11.7-15.8 [facility] Comment on above: Performed By: #### 4 [id number] #### [address] Immature granulocytes/100 WBC (Bld) 0.3 % Normal [facility] Comment on above: Performed By: #### 4 [id number] #### [address] Lymphocytes/100 WBC (Bld) 26.1 % Normal [facility] Comment on above: Performed By: #### 4 [id number] #### [address] MCH (RBC) [Entitic mass] 25.0 pg Low 27.5-32.3 [facility] Comment on above: Performed By: #### 4 [id number] #### [address] MCHC (RBC) [Mass/Vol] 30.4 g/dL Low 30.7-35.5 [facility] Comment on above: Performed By: #### 4 [id number] #### [address] MCV (RBC) [Entitic vol] 82.0 fL Normal 80.2-99 [facility] Comment on above: Performed By: #### 4 [id number] #### [address] Monocytes/100 WBC (Bld) 10.8 % Normal [facility] Comment on above: Performed By: #### 4 [id number] #### [address] Neutrophils/100 WBC (Bld) 59.1 % Normal [facility] Comment on above: Performed By: #### 4 [id number] #### [address] NUCLEATED RED BLOOD CELLS AUTO 0.0 % Normal 0.0-1.0 [facility] Comment on above: Performed By: #### 4 [id number] #### [address] PLATELET COUNT 301 x10*3/uL Normal 150-400 [facility] Comment on above: Performed By: #### 4 [id number] #### [address] RED BLOOD CELL COUNT 5.57 x10*6/uL High 3.60-5.20 [facility] Comment on above: Performed By: #### 4 [id number] #### [address] WHITE BLOOD CELLS 7.0 x10*3/uL Normal 4.3-10.3 [facility] Comment on above: Performed By: #### 4 [id number] #### [address] COMPREHENSIVE METABOLIC PANE Florencio 07-11-2024 Albumin [Mass/Vol] 4.3 g/dL Normal 3.5-5.0 [facility] Comment on above: Performed By: #### 4 [id number], [id number] #### [address] ALK PHOS 65 U/L Normal 24-126 [facility] Comment on above: Performed By: #### 4 [id number], [id number] #### [address] ALT [Catalytic activity/Vol] 17 U/L Normal 4-35 [facility] Comment on above: Performed By: #### 4 [id number], [id number] #### [address] AST [Catalytic activity/Vol] 25 U/L Normal 3-47 [facility] Comment on above: Performed By: #### 4 [id number], [id number] #### [address] Bilirubin [Mass/Vol] 0.8 mg/dL Normal 0.2-1.6 [facility] Comment on above: Performed By: #### 4 [id number], [id number] #### [address] Calcium [Mass/Vol] 9.6 mg/dL Normal 8.4-10.4 [facility] Comment on above: Performed By: #### 4 [id number], [id number] #### [address] Chloride [Moles/Vol] 103 mmol/L Normal 96-109 [facility] Comment on above: Performed By: #### 4 [id number], [id number] #### [facility] [address] [place], [place] [address] CO2 [Moles/Vol] 29 mmol/L Normal 22-30 [facility] Comment on above: Performed By: #### 4 [id number], [id number] #### [place] [address] [place] [address] [facility] Creatinine [Mass/Vol] 1.02 mg/dL Normal 0.52-1.04 [facility] Comment on above: Performed By: #### 4 [id number], [id number] #### [place] [address] GLOMERULAR FILTRATION RATE ML/MIN/1.73 SQ M.PREDICTED 58.9 mL/min/1.73m*2 Low >=60.0 [facility] Comment on above: Result Comment: eGFR calculation based on the Chronic Kidney Disease Epidemiology Collaboration (CKD-EPI) equation refit without adjustment for race. Categories in Chronic Kidney Disease (CKD) Category: GFR(mL/min/1.73m^2) Interpretation: G1* 90 or greater Normal or high G2* 60-89 Mild decrease G3a 45-59 Mild to moderate decrease G3b 30-44 Moderate to severe decrease G4 15-29 Severe decrease G5 14 or less Kidney failure *G1&G2: In the absence of evidence of kidney damage, neither GFR category G1 nor G2 fulfill the criteria for CKD Kidney Int Suppl.2013;3:1-150 Performed By: #### 4 [id number], [id number] #### [place] [address] [place], [place] [address] Glucose [Mass/Vol] 89 mg/dL Normal 65-100 [facility] Comment on above: Performed By: #### Jacqueline [id number], [id number] #### [place] [address] [place] [address] [facility] Potassium [Moles/Vol] 4.3 mmol/L Normal 3.6-5.1 [facility] [employer] Comment on above: Performed By: #### Jacqueline [id number], [id number] #### [place] [address] [place] [address] [facility] Protein [Mass/Vol] 7.1 g/dL Normal 6.3-8.2 [facility] Comment on above: Performed By: #### 4 [id number], [id number] #### [address] Sodium [Moles/Vol] 136 mmol/L Normal 135-147 [facility] Comment on above: Performed By: #### 4 [id number], [id number] #### [address] Urea nitrogen [Mass/Vol] 14 mg/dL Normal 8-26 [facility] Comment on above: Performed By: #### 4 [id number], [id number] #### [address] HEMOGLOBIN A1Con 07-11-2024 HbA1c (Bld) [Mass fraction] 6.7 % High 4.8-5.6 [facility] Comment on above: Order Comment: Perfo rmed at: 01 - [facility] [place] [id number] [employer] Laborer: Jonathan Armendariz PhD, Phone: [phone] Result Comment: Pred iabetes: 5.7 - 6.4 Diabetes: >6.4 Glycemic control for adults with diabetes: <7.0 Performed By: #### 4 [id number] #### [facility] [address] [place] [address] TSHon 07-11-2024 TSH 1.400 uIU/mL Normal 0.465-4.680 [facility] Comment on above: Performed By: #### 4 [id number], [id number] #### [facility] [address] [place] [address] 12 Lead EKG performed by [facility] [place] on 06-24-2024 12 Lead EKG performed by [address] [id number] 12 Lead EKG performed by [facility] [place] 06/24/24 1419 MR#: [id number] Acct: [id number] Name: COURTNEY DENG Linda Rep #: [id number] : 1950 73 From: Layla Chew Attending Dr: AYE Tolentino Status: DEP AMB Ordering Dr: Layla Thomas Date: 06/08 04/30 Location: [facility] [place] [place] Sex: F C Admitted: BMS/12 Lead EKG performed by [facility] [place] ECG Report Interpretation ----Sinus Bradycardia WITHIN NORMAL LIMITSElectronically signed on 07/01/2024 at 14:36 by Jose Luis Landa Software Version [id number] 07/01/24 1441 Date Layla GRIFFITHS CC: Dr. Ralph Gibson, Date Dictated: 06/24/24 1419 Date Transcribed: 06/24/241418 Reverse Engineer: MARIZA Signed Normal [facility] Cardiology Visit Reporton Cardiology Visit Report [facility] [address] [place] [address] OFFICE VISIT Date of Service: 06/24/24 MR#: [id number] Acct: [id number] Name: COURTNEY DENG Rep #: [id number] : 1950 Provider: AYE Hansen Age/Sex: 73/F Location: [facility] [place] [place] Status: Signed [facility] History of Present Illness Details: Courtney Deng is a 73-year-old female who presents here today for a cardiovascular follow up. She has a history of coronary artery disease with stenting to her LAD in April 2020. She also has a history of hypertension and hyperlipidemia and diabetes. A few days following her stenting she was admitted to the hospital for acute GI bleed. Upper EGD was normal. She then presented back to the hospital a few days later with chest discomfort, heart catheterization did not demonstrate any new lesions and she was started on reflux. She also says that she has a history of Fatima's esophagitis and needs to have an ablation and we will refer her to the GI specialist. She did continue to have chest discomfort following this and she was started on Ranexa and increased her isosorbide. Pt did undergo a heart cath in March of 2021 for continued chest pain. Medical management was recommended. Pt has been having epigastric pain. She is wondering if this is related to her barett's. She does sometimes has pain in her left breast. This is quick. She does not have any worsening SOB. She does not have any palpitations. She has an EGD scheduled 07/29. She has not needed to use any NTG. 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 Required: No Accompanied by: Self Is patient in pain?: No Allergies atorvastatin Allergy (Severe, Verified 06/24/24 14:43) Other codeine Adverse Reaction (Verified 06/24/24 14:43) Diarrhea metformin Adverse Reaction (Verified 06/24/24 14:43) gi upset naproxen Adverse Reaction (Verified 06/24/24 14:43) Diarrhea nitrofurantoin (From Macrobid) Adverse Reaction (Verified 06/24/24 14:43) Nausea Medications ???Medication ???Instructions ???Recorded ???Confirmed ???Type aspirin 81 mg tablet,delayed 81 mg PO DAILY heart health 03/30/20 06/24/24 History release (Adult Aspirin Regimen) atenolol 50 mg tablet 50 mg PO DAILY blood pressure #90 08/25/20 06/24/24 Rx tabs potassium 99 mg tablet 99 mg PO DAILY 09/06/20 06/24/24 History ezetimibe 10 mg tablet (Zetia) 10 mg PO DAILY #30 tabs 11/26/20 06/24/24 Rx furosemide 20 mg tablet 20 mg PO DAILY #90 tabs 02/01/21 06/24/24 Rx isosorbide mononitrate 60 mg 60 mg PO BID #60 tabs 08/08/21 06/24/24 Rx tablet,extended release 24 hr pantoprazole 40 mg tablet,delayed 40 mg PO DAILY 06/29/22 06/24/24 History release dapagliflozin propanediol 10 mg 10 mg PO DAILY 12/09/22 06/24/24 History tablet (Farxiga) enalapril maleate 10 mg tablet 10 mg PO DAILY 12/09/22 06/24/24 History clopidogrel 75 mg tablet (Plavix) 75 mg PO DAILY #90 tabs 12/21/22 06/24/24 Rx glipizide 5 mg tablet 5 mg PO DAILY 09/07/23 06/24/24 History nitroglycerin 0.4 mg sublingual 0.4 mg sublingual Q5-15M PRN chest 09/07/23 06/24/24 Rx tablet (Nitrostat) pain #25 tabs ranolazine 500 mg tablet,extended 500 mg PO BID #60 tabs 09/07/23 06/24/24 Rx release,12 hr (Ranexa) cefdinir 300 mg capsule 300 mg PO BID 06/24/24 06/24/24 History Have you fallen in the past year?: No PFSH Medical History Anxiety Atherosclerosis of coronary artery without angina pectoris Fatima's esophagus CHF (congestive heart failure) Essential (primary) hypertension Former smoker GERD (gastroesophageal reflux disease) GI bleed History of non-ST elevation myocardial infarction (NSTEMI) (04/20/20) Hyperlipidemia Obesity Osteoarthritis Type 2 diabetes mellitus Surgical History History of coronary artery stent placement (04/19/20) History of left heart catheterization (03/31/21) History of open reduction and internal fixation (ORIF) procedure History of tubal ligation Family History Sister Myocardial infarction age 53 Cancer Sister Heart disease Myocardial infarction, Onset Age: 69 Mother Myocardial infarction, Onset Age: 63 Brother Cancer Other CAD (coronary artery disease) Social History ... Normal [facility] URINE CULTUREon 06-16-2024 Bacteria identified Cx Nom (U) URINE CULTURE, ROUTINE [id number] PNEUMONIAE PNEUMONIAE >100,000/mL Klebsiella pneumoniae pneumoniae Organism ID: 1 Antibiotic Interpretation BENI Status Ampicillin Susc Islt R 16 F Ampicillin+Sulbac Susc Islt S 4 F ceFAZolin Susc Islt S <=4 F Cefepime Susc Islt S <=1 F cefTRIAXone Susc Islt S <=1 F B-Lactamase Extended Susc Islt - Negative F Gentamicin Susc Islt S <=1 F levoFLOXacin Susc Islt S <=0.12 F Nitrofurantoin Susc Islt S <=16 F Pip+Tazo Susc Islt S <=4 F Tobramycin Susc Islt S <=1 F TMP SMX Susc Islt S <=20 F Susceptible [facility] Comment on above: Performed By: #### 4 [id number] #### [facility] [address] [place] [address] DBT Breast - bilateral scree valerie 11-07-2023 Benign bilateral mammogram. BIRADS: 2 - Benign, no evidence of malignancy. Normal interval followup is recommended in 12 months. OVERALL ASSESSMENT- BENIGN A letter of notification will be sent to the patient regarding the results. Category B: The breasts have scattered areas of fibroglandular density. ACR BI-RADS 2: Benign Routine Screening in 1 Year [facility] MAMMO BILAT SCREENIN G DIGITAL W/PADMINI CLINICAL HISTORY: Encounter for screening mammogram for malignant neoplasm of breast. COMPARISON: 04/04/2022. TECHNIQUE: 2-D and 3-D views. FINDINGS: Breasts are of scattered fibroglandular composition. There are secretory calcifications bilaterally. No suspicious masses, microcalcifications or enlarged lymph nodes. Well-circumscribed nodule in the upper outer left breast is entirely stable and may be an intramammary lymph node. No enlarged lymph nodes in the axillary regions. Central retraction of the right nipple is unchanged. Chang Coles MD - 11/07/2023 MAMMO BILAT SCREENING DIGITAL W/PADMINI CLINICAL HISTORY: Encounter for screening mammogram for malignant neoplasm of breast. COMPARISON: 04/04/2022. TECHNIQUE: 2-D and 3-D views. FINDINGS: Breasts are of scattered fibroglandular composition. There are secretory calcifications bilaterally. No suspicious masses, microcalcifications or enlarged lymph nodes. Well-circumscribed nodule in the upper outer left breast is entirely stable and may be an intramammary lymph node. No enlarged lymph nodes in the axillary regions. Central retraction of the right nipple is unchanged. IMPRESSION: Benign bilateral mammogram. BIRADS: 2 - Benign, no evidence of malignancy. Normal interval followup is recommended in 12 months. OVERALL ASSESSMENT- BENIGN A letter of notification will be sent to the patient regarding the results. Category B: The breasts have scattered areas of fibroglandular density. ACR BI-RADS 2: Benign Routine Screening in 1 Year [facility] Radiology Study observation (narrative) [facility] DBT Breast - bilateral scree ningOrdered By: Chang Gale on 11-07-2023 [facility] Work Phone: POCT glucoseOrdered By: Back ground Lab on 09-30-2023 Yeast Wet prep Ql (Vag fld) [facility] SARS-COV-2, Flu A, FLU B, RS V (PCR) PanelOrdered By: Background Lab on 09-29-2023 FLUAV RNA MAGGIE+probe Ql (Nph) Negative Negative [facility] FLUBV RNA MAGGIE+probe Ql (Nph) Negative Negative [facility] Interpretation and review of laboratory results Normal [facility] RSV Ag Ql (Unsp spec) Negative Negative [facility] SARS-CoV-2 (COVID-19) RNA MAGGIE+probe Ql (Resp) Negative Negative [facility] Comment on above: Negative results do not preclude SARS-CoV-2 infection and should not be used as the sole basis for treatment or other patient management decisions. Negative results must be combined with clinical observations, patient history, and epidemiological information. The Xpert Xpress CoV-2/Flu/RSV plus test is only for use under the Food and Drug Administration's Emergency Use Authorization. Results are for the simultaneous detection and differentiation of SARS-CoV-2, influenza A virus, influenza B virus and RSV RNA which are generally detectable in upper respiratory specimens during the acute phase of infection. [facility] XR Chest PA and Lateralon No acute findings. [facility] EXAM: XR CHEST PA AN D LATERAL HISTORY: Cough x 10 days COMPARISON: 08/02/2023 TECHNIQUE: 2 views of the chest FINDINGS: Heart size normal. No focal consolidation, pleural effusion, pulmonary congestion or pneumothorax. Horacio Cullen MD - 09/29/2023 EXAM: XR CHEST PA AND LATERAL HISTORY: Cough x 10 days COMPARISON: 08/02/2023 TECHNIQUE: 2 views of the chest FINDINGS: Heart size normal. No focal consolidation, pleural effusion, pulmonary congestion or pneumothorax. IMPRESSION: No acute findings. [facility] Radiology Study observation (narrative) [facility] XR Chest PA and LateralOrder ed By: Horacio Fernandez on 09-29-2023 [facility] [facility] Work Phone: US Gallbladderon 09-27-2023 1. Small septated complex cyst right lobe of liver. 2. Simple cyst in the right kidney. [facility] GALLBLADDER, 09/27/2023 11:06 AM EST INDICATION: Epigastric pain: Right upper quadrant pain: Other chronic pain: COMPARISON: CT abdomen and pelvis 09/23/2023. PROCEDURE: Ultrasound of the right upper quadrant of the abdomen was performed. FINDINGS: Gallbladder: No stones, sludge or wall thickening. There is no pericholecystic fluid. Sonographic Marin Sign: Negative Common Bile Duct: Normal caliber. Intrahepatic Bile Ducts: No dilatation. Liver: Normal echotexture. In the right lobe there is a septated cystic structure measuring 1.4 x 2.3 x 1.6 cm. Pancreas: Tail is obscured. Otherwise unremarkable. Right Kidney: 10.9 cm. 7 mm cortex. 1.7 x 1.7 x 1.2 cm cyst in the upper pole. This is simple. Additional Findings: None Terence Choi MD - 09/27/2023 US GALLBLADDER, 09/27/2023 11:06 AM EST INDICATION: Epigastric pain: Right upper quadrant pain: Other chronic pain: COMPARISON: CT abdomen and pelvis 09/23/2023. PROCEDURE: Ultrasound of the right upper quadrant of the abdomen was performed. FINDINGS: Gallbladder: No stones, sludge or wall thickening. There is no pericholecystic fluid. Sonographic Marin Sign: Negative Common Bile Duct: Normal caliber. Intrahepatic Bile Ducts: No dilatation. Liver: Normal echotexture. In the right lobe there is a septated cystic structure measuring 1.4 x 2.3 x 1.6 cm. Pancreas: Tail is obscured. Otherwise unremarkable. Right Kidney: 10.9 cm. 7 mm cortex. 1.7 x 1.7 x 1.2 cm cyst in the upper pole. This is simple. Additional Findings: None IMPRESSION: 1. Small septated complex cyst right lobe of liver. 2. Simple cyst in the right kidney. [facility] Radiology Study observation (narrative) [facility] US GallbladderOrdered By: Armida Orellana on 09-27-2023 [employer] Work Phone: CBC with DifferentialOrdered By: Background Lab on 09-23-2023 Absolute Immature Granulocytes 0.0 [facility] Age [Time] 80.5 fL 80.2 - 99 fL [facility] Age [Time] 24.4 pg Low 27.5 - 32.3 pg [facility] Age [Time] 30.3 g/dL Low 30.7 - 35.5 g/dL [facility] B. burgdorferi IgM IB Ql (CSF) 26.3 % [facility] Basophils (Bld) [#/Vol] 0.0 10*3/uL [facility] Basophils/100 WBC (Body fld) 0.6 % [facility] Eosinophils (Bld) [#/Vol] 1.8 10*3/uL [facility] Eosinophils (Bld) [#/Vol] 0.6 10*3/uL [facility] Eosinophils (Bld) [#/Vol] 0.2 10*3/uL [facility] Eosinophils/100 WBC (Bld) 3.0 % [facility] Erythrocyte distribution width (RBC) [Ratio] 18.3 % High 11.5 - 14.5 % [facility] Hematocrit (Bld) [Volume fraction] 42.2 % 33.6 - 46.8 % [facility] Hexanoylglycine (U) [Moles/Vol] 12.8 g/dL 11.7 - 15.8 g/dL [facility] Immature granulocytes/100 WBC (Bld) 0.3 % [facility] Interpretation and review of laboratory results Abnormal [facility] Monocytes/100 WBC (Bld) 8.3 % [facility] Neurotensin (P) [Mass/Vol] 61.5 % [facility] Neutrophils (Bld) [#/Vol] 4.3 10*3/uL [facility] Platelets (Bld) [#/Vol] 263 10*3/uL [facility] RBC (Bld) [#/Vol] 5.24 10*6/uL [facility] Attachments.me [facility] WBC (Bld) [#/Vol] 7.0 10*3/uL [facility] CT Abdomen and Pelvis W cont rasmaria Salma 09-23-2023 1. Minimal hazy fat stranding within the mid abdominal mesentery may be seen with acute or chronic panniculitis most commonly. This is not identified on 02/13/2022. 2. Otherwise, no other evidence of acute abdominal or pelvic process. 3. Normal appendix. NOTE: Other chronic/incidental findings are discussed above. [facility] EXAM: CT ABDOMEN PELVIS WITH IV CONTRAST, 09/23/2023 8:04 AM EST INDICATION: Abdominal pain, acute, nonlocalized COMPARISON: 02/13/2022 CT TECHNIQUE: Dose reduction techniques were achieved by using automated exposure control and/or adjustment of mA and/or kV according to patient size and/or use of iterative reconstruction technique. Multiple contiguous enhanced CT images of the abdomen and pelvis were obtained after intravenous contrast administration. Coronal and sagittal reformats were also reviewed. FINDINGS: Clear lung bases. Small cyst within the liver is unchanged. Spleen, adrenals, and pancreas are normal. Gallbladder unremarkable. Small cortical cyst right kidney noted, otherwise kidneys and ureters are normal. Urinary bladder normal. Moderate to severe atherosclerotic calcification abdominal aorta. Moderate left colonic diverticulosis. No acute diverticulitis. Average stool burden. Normal appendix. Very small sliding-type hiatal hernia is unchanged. Minimal hazy fat stranding within the mid abdominal mesentery is noted with a few adjacent tiny/nonenlarged mesenteric lymph nodes. The fat stranding is new. There are no enlarged lymph nodes. No free fluid or free air. Abdominal wall intact. No biliary dilation. No other significant finding. No acute or concerning bony abnormality. [facility] Chacorta Ji MD - 09/23/2023 EXAM: CT ABDOMEN PELVIS WITH IV CONTRAST, 09/23/2023 8:04 AM EST INDICATION: Abdominal pain, acute, nonlocalized COMPARISON: 02/13/2022 CT TECHNIQUE: Dose reduction techniques were achieved by using automated exposure control and/or adjustment of mA and/or kV according to patient size and/or use of iterative reconstruction technique. Multiple contiguous enhanced CT images of the abdomen and pelvis were obtained after intravenous contrast administration. Coronal and sagittal reformats were also reviewed. FINDINGS: Clear lung bases. Small cyst within the liver is unchanged. Spleen, adrenals, and pancreas are normal. Gallbladder unremarkable. Small cortical cyst right kidney noted, otherwise kidneys and ureters are normal. Urinary bladder normal. Moderate to severe atherosclerotic calcification abdominal aorta. Moderate left colonic diverticulosis. No acute diverticulitis. Average stool burden. Normal appendix. Very small sliding-type hiatal hernia is unchanged. Minimal hazy fat stranding within the mid abdominal mesentery is noted with a few adjacent tiny/nonenlarged mesenteric lymph nodes. The fat stranding is new. There are no enlarged lymph nodes. No free fluid or free air. Abdominal wall intact. No biliary dilation. No other significant finding. No acute or concerning bony abnormality. IMPRESSION: 1. Minimal hazy fat stranding within the mid abdominal mesentery may be seen with acute or chronic panniculitis most commonly. This is not identified on 02/13/2022. 2. Otherwise, no other evidence of acute abdominal or pelvic process. 3. Normal appendix. NOTE: Other chronic/incidental findings are discussed above. [facility] Radiology Study observation (narrative) [facility] CT Abdomen and Pelvis W cont rast IVOrdered By: Chacorta Ji on 09-23-2023 [facility] Work Phone: Comprehensive metabolic 2000 panelon 09-23-2023 Albumin (Syn fld) [Mass/Vol] 3.8 g/dL 3.5 - 5.0 g/dL [facility] Aldosterone (U) [Mass/Vol] 67 U/L 24 - 126 U/L [facility] ALT [Catalytic activity/Vol] 17 U/L 4 - 35 U/L [facility] Anion gap [Moles/Vol] 8 mmol/L 8 - 12 mmol/L [facility] AST [Catalytic activity/Vol] 20 U/L 3 - 47 U/L [facility] Bilirubin [Mass/Vol] 0.8 mg/dL 0.2 - 1 .6 mg/dL [facility] Calcium [Mass/Vol] 9.1 mg/dL 8.4 - 10. 4 mg/dL [facility] Calcium hydrogen phosphate dihydrate crystals LM Ql (Urine sed) 14 mg/dL 8 - 26 mg/dL [facility] Chloride [Moles/Vol] 107 mmol/L 96 - 10 9 mmol/L [facility] CO2 (BldMV) [Moles/Vol] 22 mmol/L 22 - 30 mmol/L [facility] Creatinine [Mass/Vol] 1.10 mg/dL High 0.52 - 1.04 mg/dL [facility] GFR/1.73 sq M.predicted among non-blacks MDRD (S/P/Bld) [Vol rate/Area] 54.2 mL/min/{1.73_m2} Low - PINF [facility] Comment on above: eGFR calculation bas ed on the Chronic Kidney Disease Epidemiology Collaboration (CKD-EPI) equation refit without adjustment for race. Categories in Chronic Kidney Disease (CKD) Category: GFR(mL/min/1.73m^2) Interpretation: G1* 90 or greater Normal or high G2* 60-89 Mild decrease G3a 45-59 Mild to moderate decrease G3b 30-44 Moderate to severe decrease G4 15-29 Severe decrease G5 14 or less Kidney failure *G1&G2: In the absence of evidence of kidney damage, neither GFR category G1 nor G2 fulfill the criteria for CKD Kidney Int Suppl.2013;3:1-150 Glucose [Mass/Vol] 137 mg/dL High 65 - 100 mg/dL [facility] Interpretation and review of laboratory results Abnormal [facility] Potassium [Moles/Vol] 3.8 mmol/L 3.6 - 5.1 mmol/L [facility] Protein [Mass/Vol] 6.7 g/dL 6.3 - 8.2 g/dL [facility] Sodium [Moles/Vol] 137 mmol/L 135 - 147 mmol/L [facility] Lactate - ED and Inpatient: A result >2 mmol/L will create an auto-follow up lactate order to be drawn in 2 hours.on 09-23-2023 Interpretation and review of laboratory results Normal [facility] Lactate [Moles/Vol] 1.3 mmol/L 0.7 - 2. 0 mmol/L [facility] Lipaseon 09-23-2023 Interpretation and review of laboratory results Normal [facility] Lipase [Catalytic activity/Vol] 73 U/L 23 - 300 U/L [facility] No Panel Informationon 09-23 [facility] CURINon 09-21-2023 CURIN Patient: WYATT DENG [id number] Location: [facility] Aount: [id number] : 1950 Age: 72 Sex F Lab NumbEr [id number] Requested by: RODRIGUEZ WEST Admitdate: 09/21/23 Source: UR Collected: 09/21/23 16:15 Site: Received : 09/21/23 18:52 Culture, Urine FINAL 09/23/23 11:47 09/22/23 AEROBIC CULTURE RESULTS: #1: HEAVY GNB COLONY COUNT: >100,000 CFU/ml Organism 01 Escherichia coli _ Organism E. coli ANTIBIOTICS BENI Interp _ Amikacin <16 S Amoxicillin/K Clavulanate <8/4 S Amp/Sulbactam <8/4 S Ampicillin <8 S Cefazolin <2 S Cefepime <2 S Cefotaxime <2 S Cefotetan <16 S Ceftazidime <1 S Ceftriaxone <1 S Ciprofloxacin <1 S Ertapenem <0.5 S Gentamicin <4 S Levofloxacin <2 S Nitrofurantoin <32 S Piperacillin/Alex <16 S Tetracycline <4 S Tobramycin <4 S Trimeth/Sulfa <2/38 S _ S=Sensitive I=Intermediate R=Resistant _ Normal [facility] Comment on above: Performed By: #### M IC2 #### [facility] [address] [place] [address] Absolute lymphocyte countOrd ered By: ED PROVIDER on 08-13-2023 Lymphocytes Auto (Unsp spec) [#/Vol] 2.08 10*3/uL 0.83-4.51 [facility] Basophil percentageOrdered B y: ED PROVIDER on 08-13-2023 Basophils/100 WBC (Bld) 0.6 % 0-1 [facility] Chloride [Moles/Vol] 105 mmol/L 98-107 [facility] Eosinophils/100 WBC (Bld) 1.8 % 0-5 [facility] Glucose [Mass/Vol] 83 mg/dL 74-106 [facility] Neutrophils (Bld) [#/Vol] 5.1 10*3/uL 2.0-7.7 [facility] Neutrophils/100 WBC (Bld) 62.5 % 47-70 [facility] Potassium [Moles/Vol] 4.0 mmol/L 3.5-5.1 [facility] Sodium [Moles/Vol] 139 mmol/L 136-145 [facility] WBC (Bld) [#/Vol] 8.2 10*3/uL 4.4-11.0 [facility] Blood erythrocytes count (nu mber/volume)Ordered By: ED PROVIDER on 08-13-2023 RBC (Bld) [#/Vol] 5.46 10*6/uL 4.2-5.4 [facility] Blood hemoglobin measurement (mass/volume)Ordered By: ED PROVIDER on 08-13-2023 Hemoglobin (Bld) [Mass/Vol] 12.5 g/dL 12.0-15.0 [facility] Blood lymphocytes/100 leukoc ytesOrdered By: ED PROVIDER on 08-13-2023 Lymphocytes/100 WBC (Bld) 25.3 % 19-41 [facility] Blood monocytes/100 leukocyt esOrdered By: ED PROVIDER on 08-13-2023 Monocytes/100 WBC (Bld) 9.4 % 0-10 [facility] Blood platelet mean volumeOr dered By: ED PROVIDER on 08-13-2023 Platelet mean volume (Bld) [Entitic vol] 9.7 fL 6.2-12.0 [facility] Determination of erythrocyte mean corpuscular volume (MCV)Ordered By: ED PROVIDER on 08-13-2023 MCV (RBC) [Entitic vol] 78.9 fL 81-99 [facility] Hematocrit Auto (Bld) [Volum e fraction]Ordered By: ED PROVIDER on 08-13-2023 Hematocrit (Bld) [Volume fraction] 43.1 % 37-47 [facility] Laboratory - Chemistry and C hemistry - challengeOrdered By: ED PROVIDER on 08-13-2023 CO2 [Moles/Vol] 29.0 mmol/L 21.0-32.0 [facility] Urea nitrogen/Creatinine [Mass ratio] 15.9 mg/mg 10-20 [facility] Laboratory - Hematology and Cell countsOrdered By: Richard Lara on 08-13-2023 Anisocytosis Ql (Bld) 1+ [facility] Laboratory - Hematology and Cell countsOrdered By: ED PROVIDER on 08-13-2023 Erythrocyte distribution width (RBC) [Entitic vol] 61.1 fL 35.1-43.9 [facility] Erythrocyte distribution width (RBC) [Ratio] 22.0 % 11.6-14.6 [facility] Immature granulocytes/100 WBC (Bld) 0.400 % 0.0-0.9 [facility] Comment on above: IG% - Immature Granu locytes (promyelocytes, myelocytes and metamyelocytes) > 1% indicates that a LEFT SHIFT is Present. MCH (RBC) [Entitic mass] 22.9 pg 27.0-32.0 [facility] Nucleated RBC/100 WBC (Bld) [Ratio] 0 % 0-5 [facility] MCHC Auto (RBC) [Mass/Vol]Or dered By: ED PROVIDER on 08-13-2023 MCHC (RBC) [Mass/Vol] 29.0 g/dL 32-36 [facility] No Panel InformationOrdered By: ED PROVIDER on 08-13-2023 Estimated Creatinine Clearance Calc 36.92 ml/min [facility] Estimated GFR (MDRD) Amer 65 mL/min >60 [facility] Comment on above: GFR Calc Estimated GFR (MDRD) Non-Af Amer 54 mL/min >60 [facility] Comment on above: Non- GFR Calc Troponin I High Sensitivity 10 pg/mL 3.0-54.0 [facility] Comment on above: Please Note: New Lazara t Units and Gender Specific Reference Ranges. For more information see Policy Stat Procedure [place] High Sensitivity Troponin (TNIH) and attachments. Platelets bldOrdered By: ED PROVIDER on 08-13-2023 Platelets (Bld) [#/Vol] 317 10*3/uL 150-450 [facility] Serum or plasma calcium rudolph urement (mass/volume)Ordered By: ED PROVIDER on 08-13-2023 Calcium [Mass/Vol] 9.4 mg/dL 8.5-10.1 [facility] Serum or plasma creatinine m easurement (mass/volume)Ordered By: ED PROVIDER on 08-13-2023 Creatinine [Mass/Vol] 1.07 mg/dL 0.55-1.02 [facility] Comment on above: The validity of the calculated GFR & GFRAA in patients over 70 years has not been determined. Clinical correlation is essential. Serum or plasma urea nitroge n measurement (mass/volume)Ordered By: ED PROVIDER on 08-13-2023 Urea nitrogen [Mass/Vol] 17 mg/dL 7-18 [facility] Thin prep Papanicolaou smear with manual screeningOrdered By: ED PROVIDER on 08-13-2023 Thin prep Papanicolaou smear with manual screening 5 5-15 [facility] BNPon 08-02-2023 Interpretation and review of laboratory results Normal [facility] Nucleated RBC/100 WBC (Bld) [Ratio] 145 pg/mL NINF - 299 pg/mL [facility] Comment on above: Negative: Heart Fail ure Unlikely [facility] CBC with DifferentialOrdered By: Anamika Van on 08-02-2023 Absolute Immature Granulocytes 0.0 [facility] Age [Time] 77.1 fL Low 80.2 - 99 fL [facility] Age [Time] 23.1 pg Low 27.5 - 32.3 pg [facility] Age [Time] 30.0 g/dL Low 30.7 - 35.5 g/dL [facility] B. burgdorferi IgM IB Ql (CSF) 31.6 % [facility] Basophils (Bld) [#/Vol] 0.1 10*3/uL [facility] Basophils/100 WBC (Body fld) 0.8 % [facility] Eosinophils (Bld) [#/Vol] 2.6 10*3/uL [facility] Eosinophils (Bld) [#/Vol] 0.7 10*3/uL High [facility] Eosinophils (Bld) [#/Vol] 0.3 10*3/uL [facility] Eosinophils/100 WBC (Bld) 3.0 % [facility] Erythrocyte distribution width (RBC) [Ratio] 21.8 % High 11.5 - 14.5 % [facility] Hematocrit (Bld) [Volume fraction] 41.7 % 33.6 - 46.8 % [facility] Hexanoylglycine (U) [Moles/Vol] 12.5 g/dL 11.7 - 15.8 g/dL [facility] Immature granulocytes/100 WBC (Bld) 0.2 % [facility] Interpretation and review of laboratory results Abnormal [facility] Monocytes/100 WBC (Bld) 8.4 % [facility] Neurotensin (P) [Mass/Vol] 56.0 % [facility] Neutrophils (Bld) [#/Vol] 4.7 10*3/uL [facility] Platelets (Bld) [#/Vol] 316 10*3/uL [facility] RBC (Bld) [#/Vol] 5.41 10*6/uL [facility] WBC (Bld) [#/Vol] 8.4 10*3/uL [facility] Comprehensive metabolic 2000 panelOrdered By: Background Lab on 08-02-2023 Albumin (Syn fld) [Mass/Vol] 4.1 g/dL 3.5 - 5.0 g/dL [facility] Aldosterone (U) [Mass/Vol] 73 U/L 24 - 126 U/L [facility] ALT [Catalytic activity/Vol] 18 U/L 4 - 35 U/L [facility] Anion gap [Moles/Vol] 9 mmol/L 8 - 12 mmol/L [facility] AST [Catalytic activity/Vol] 23 U/L 3 - 47 U/L [facility] Bilirubin [Mass/Vol] 0.6 mg/dL 0.2 - 1 .6 mg/dL [facility] Calcium [Mass/Vol] 9.4 mg/dL 8.4 - 10. 4 mg/dL [facility] Calcium hydrogen phosphate dihydrate crystals LM Ql (Urine sed) 14 mg/dL 8 - 26 mg/dL [facility] Chloride [Moles/Vol] 101 mmol/L 96 - 10 9 mmol/L [facility] CO2 (BldMV) [Moles/Vol] 26 mmol/L 22 - 30 mmol/L [facility] Creatinine [Mass/Vol] 0.99 mg/dL 0.52 - 1.04 mg/dL [facility] GFR/1.73 sq M.predicted among non-blacks MDRD (S/P/Bld) [Vol rate/Area] 61.5 mL/min/{1.73_m2} - PINF [facility] Comment on above: eGFR calculation bas ed on the Chronic Kidney Disease Epidemiology Collaboration (CKD-EPI) equation refit without adjustment for race. Categories in Chronic Kidney Disease (CKD) Category: GFR(mL/min/1.73m^2) Interpretation: G1* 90 or greater Normal or high G2* 60-89 Mild decrease G3a 45-59 Mild to moderate decrease G3b 30-44 Moderate to severe decrease G4 15-29 Severe decrease G5 14 or less Kidney failure *G1&G2: In the absence of evidence of kidney damage, neither GFR category G1 nor G2 fulfill the criteria for CKD Kidney Int Suppl.2013;3:1-150 Glucose [Mass/Vol] 131 mg/dL High 65 - 100 mg/dL [facility] Interpretation and review of laboratory results Abnormal [facility] Potassium [Moles/Vol] 3.8 mmol/L 3.6 - 5.1 mmol/L [facility] Protein [Mass/Vol] 7.1 g/dL 6.3 - 8.2 g/dL [facility] Sodium [Moles/Vol] 136 mmol/L 135 - 147 mmol/L [facility] EKG (ED/FC)on 08-02-2023 [facility] Test Date: 2023-08-02 Pat Name: COURTNEY SOWMYA Department: Room: Gender: Female [employer]: Tank : 1950 Requested By: DERRICK ESQUIVEL Order Number: [id number] Reading MD: Derrick Esquivel Measurements Intervals [place] Rate: 60 P: 41 IN: 190 QRS: -4 QRSD: 85 T: 66 QT: 429 QTc: 430 Interpretive Statements SINUS RHYTHM No acute ischemic changes when comnpared to her 06/06/2016 EKG Electronically Signed On 08-02-2023 2:34:38 EDT by Derrick KENNY [facility] Lipaseon 08-02-2023 Interpretation and review of laboratory results Normal [facility] Lipase [Catalytic activity/Vol] 131 U/L 23 - 300 U/L [facility] No Panel InformationOrdered By: Anamika Van on 08-02-2023 [employer] [facility] No Panel InformationOrdered By: Background Lab on 08-02-2023 [facility] Peripheral Smear Reviewon Anisocytosis Ql (Bld) 1+ Gen [facility] Troponin I (One time)on 07-09 Interpretation and review of laboratory results Normal [facility] Troponin I.cardiac [Mass/Vol] ng/mL [facility] Comment on above: Negative: No detectable troponin-I. [facility] Troponin I - Series (X 3)on 08-02-2023 Interpretation and review of laboratory results Normal [facility] Troponin I.cardiac [Mass/Vol] ng/mL [facility] ng/mL [facility] Comment on above: Negative: No detectable troponin-I. [facility] XR Chest Single viewon 08-02 1. No acute cardiopulmonary abnormality. [facility] EXAM: XR CHEST 1 VIE W HISTORY: chest pain COMPARISON: Chest radiographs dated 01/12/2023. TECHNIQUE: One view of the chest was obtained. FINDINGS: The cardiac silhouette is stable in size. Aortic atherosclerotic disease is seen. The lungs are clear. There is no significant pneumothorax or pleural effusion. No acute osseous abnormality is seen. Collins Grimes MD - 08/02/2023 EXAM: XR CHEST 1 VIEW HISTORY: chest pain COMPARISON: Chest radiographs dated 01/12/2023. TECHNIQUE: One view of the chest was obtained. FINDINGS: The cardiac silhouette is stable in size. Aortic atherosclerotic disease is seen. The lungs are clear. There is no significant pneumothorax or pleural effusion. No acute osseous abnormality is seen. IMPRESSION: 1. No acute cardiopulmonary abnormality. [facility] Radiology Study observation (narrative) [facility] XR Chest Single viewOrdered By: Collins Quiñones on 08-02-2023 [facility] Work Phone: XR Hand - right 3 Viewson Degenerative changes without acute abnormality in the right hand. [facility] EXAM: XR HAND RIGHT MIN 3 VIEW (ROUTINE) HISTORY: Polyosteoarthritis, unspecified: COMPARISON: None. FINDINGS: 3 views right hand were obtained. There is background demineralization. No acute fracture or dislocation. Degenerative change noted primarily at the first IP joint, PIP joint of the long finger, and DIP joints of the index and long fingers. No bony erosion. Soft tissue unremarkable. [facility] Johnnie Duarte MD - 07/02/2023 EXAM: XR HAND RIGHT MIN 3 VIEW (ROUTINE) HISTORY: Polyosteoarthritis, unspecified: COMPARISON: None. FINDINGS: 3 views right hand were obtained. There is background demineralization. No acute fracture or dislocation. Degenerative change noted primarily at the first IP joint, PIP joint of the long finger, and DIP joints of the index and long fingers. No bony erosion. Soft tissue unremarkable. IMPRESSION: Degenerative changes without acute abnormality in the right hand. [facility] Radiology Study observation (narrative) [facility] XR Hand - right 3 ViewsOrder ed By: Johnnie Duarte on 07-02-2023 [facility] Work Phone: Absolute lymphocyte countOrd ered By: Paulette Fontana on 12-23-2022 Lymphocytes Auto (Unsp spec) [#/Vol] 1.43 10*3/uL 0.83-4.51 [facility] Basophil percentageOrdered B y: Paulette Fontana on 12-23-2022 Basophils/100 WBC (Bld) 0.6 % 0-1 [facility] Chloride [Moles/Vol] 109 mmol/L 98-107 [facility] Eosinophils/100 WBC (Bld) 3.7 % 0-5 [facility] Glucose [Mass/Vol] 171 mg/dL 74-106 [facility] Comment on above: Fasting Glucose resu lt greater than or equal to 126 mg/dL suggests DIABETES MELLITUS per A.D.A. criteria. Neutrophils (Bld) [#/Vol] 3.9 10*3/uL 2.0-7.7 [facility] Neutrophils/100 WBC (Bld) 62.4 % 47-70 [facility] Potassium [Moles/Vol] 3.5 mmol/L 3.5-5.1 [facility] Sodium [Moles/Vol] 143 mmol/L 136-145 [facility] WBC (Bld) [#/Vol] 6.2 10*3/uL 4.4-11.0 [facility] Blood erythrocytes count (nu mber/volume)Ordered By: Paulette Fontana on 12-23-2022 RBC (Bld) [#/Vol] 4.76 10*6/uL 4.2-5.4 [facility] Blood hemoglobin measurement (mass/volume)Ordered By: Paulette Fontana on 12-23-2022 Hemoglobin (Bld) [Mass/Vol] 12.0 g/dL 12.0-15.0 [facility] Blood lymphocytes/100 leukoc ytesOrdered By: Paulette Fontana on 12-23-2022 Lymphocytes/100 WBC (Bld) 23.0 % 19-41 [facility] Blood monocytes/100 leukocyt esOrdered By: Paulette Fontana on 12-23-2022 Monocytes/100 WBC (Bld) 10.1 % 0-10 [facility] Blood platelet mean volumeOr dered By: Paulette Fontana on 12-23-2022 Platelet mean volume (Bld) [Entitic vol] 9.5 fL 6.2-12.0 [facility] Determination of erythrocyte mean corpuscular volume (MCV)Ordered By: Paulette Fontana on 12-23-2022 MCV (RBC) [Entitic vol] 81.5 fL 81-99 [facility] Hematocrit Auto (Bld) [Volum e fraction]Ordered By: Paulette Fontana on 12-23-2022 Hematocrit (Bld) [Volume fraction] 38.8 % 37-47 [facility] Laboratory - Chemistry and C hemistry - challengeOrdered By: Paulette Fontana on 12-23-2022 CO2 [Moles/Vol] 25.0 mmol/L 21.0-32.0 [facility] Urea nitrogen/Creatinine [Mass ratio] 15.9 mg/mg 10-20 [facility] Laboratory - Hematology and Cell countsOrdered By: Paulette Fontana on 12-23-2022 Erythrocyte distribution width (RBC) [Entitic vol] 43.3 fL 35.1-43.9 [facility] Erythrocyte distribution width (RBC) [Ratio] 14.6 % 11.6-14.6 [facility] Immature granulocytes/100 WBC (Bld) 0.200 % 0.0-0.9 [facility] Comment on above: IG% - Immature Granu locytes (promyelocytes, myelocytes and metamyelocytes) > 1% indicates that a LEFT SHIFT is Present. MCH (RBC) [Entitic mass] 25.2 pg 27.0-32.0 [facility] Nucleated RBC/100 WBC (Bld) [Ratio] 0 % 0-5 [facility] MCHC Auto (RBC) [Mass/Vol]Or dered By: Paulette Fontana on 12-23-2022 MCHC (RBC) [Mass/Vol] 30.9 g/dL 32-36 [facility] No Panel InformationOrdered By: Paulette Fontana on 12-23-2022 Estimated Creatinine Clearance Calc 36.92 ml/min [facility] Estimated GFR (MDRD) Amer 65 mL/min >60 [facility] Comment on above: GFR Calc Estimated GFR (MDRD) Non-Af Amer 54 mL/min >60 [facility] Comment on above: Non- GFR Calc Troponin I High Sensitivity 10 pg/mL 3.0-54.0 [facility] Comment on above: Please Note: New [place] t Units and Gender Specific Reference Ranges. For more information see Policy Stat Procedure [place] High Sensitivity Troponin (TNIH) and attachments. Platelets bldOrdered By: Jocelyne Fontana on 12-23-2022 Platelets (Bld) [#/Vol] 307 10*3/uL 150-450 [facility] Serum or plasma calcium rudolph urement (mass/volume)Ordered By: Paulette Fontana on 12-23-2022 Calcium [Mass/Vol] 8.6 mg/dL 8.5-10.1 [facility] Serum or plasma creatinine m easurement (mass/volume)Ordered By: Paulette Fontana on 12-23-2022 Creatinine [Mass/Vol] 1.07 mg/dL 0.55-1.02 [facility] Comment on above: The validity of the calculated GFR & GFRAA in patients over 70 years has not been determined. Clinical correlation is essential. Serum or plasma urea nitroge n measurement (mass/volume)Ordered By: Paulette Fontana on 12-23-2022 Urea nitrogen [Mass/Vol] 17 mg/dL 7-18 [facility] Thin prep Papanicolaou smear with manual screeningOrdered By: Paulette Fontana on 12-23-2022 Thin prep Papanicolaou smear with manual screening 9 5-15 [facility] Absolute lymphocyte countOrd ered By: Dr. Morales on 12-09-2022 Lymphocytes Auto (Unsp spec) [#/Vol] 1.35 10*3/uL 0.83-4.51 [facility] Basophil percentageOrdered B y: Dr. Morales on 12-09-2022 Basophils/100 WBC (Bld) 0.4 % 0-1 [facility] Chloride [Moles/Vol] 107 mmol/L 98-107 [facility] Eosinophils/100 WBC (Bld) 1.4 % 0-5 [facility] Glucose [Mass/Vol] 155 mg/dL 74-106 [facility] Comment on above: Fasting Glucose resu lt greater than or equal to 126 mg/dL suggests DIABETES MELLITUS per A.D.A. criteria. Neutrophils (Bld) [#/Vol] 5.6 10*3/uL 2.0-7.7 [facility] Neutrophils/100 WBC (Bld) 71.9 % 47-70 [facility] Potassium [Moles/Vol] 3.6 mmol/L 3.5-5.1 [facility] Sodium [Moles/Vol] 140 mmol/L 136-145 [facility] WBC (Bld) [#/Vol] 7.8 10*3/uL 4.4-11.0 [facility] Blood erythrocytes count (nu mber/volume)Ordered By: Dr. Morales on 12-09-2022 RBC (Bld) [#/Vol] 5.23 10*6/uL 4.2-5.4 [facility] Blood hemoglobin measurement (mass/volume)Ordered By: Dr. Morales on 12-09-2022 Hemoglobin (Bld) [Mass/Vol] 12.9 g/dL 12.0-15.0 [facility] Blood lymphocytes/100 leukoc ytesOrdered By: Dr. Morales on 12-09-2022 Lymphocytes/100 WBC (Bld) 17.3 % 19-41 [facility] Blood monocytes/100 leukocyt esOrdered By: Dr. Morales on 12-09-2022 Monocytes/100 WBC (Bld) 8.6 % 0-10 [facility] Blood platelet mean volumeOr dered By: Dr. Morales on 12-09-2022 Platelet mean volume (Bld) [Entitic vol] 10.0 fL 6.2-12.0 [facility] COVID-19 virus antigen assay Ordered By: Dr. Morales on 12-09-2022 SARS-CoV-2 (COVID-19) Ag IA.rapid Ql (Resp) Detected Not Detect [facility] Comment on above: Normal Reference Ran ge: Not DetectedMethod:(RT-PCR) real-time reverse transcriptase PCRLuminex TOM Instrument*The Food and Drug Administration (FDA) has issued an Emergency Use Authorization (EAU) for the TOM SARS-CoV-2 Assay for the rapid detection of the virus that causes COVID-19. This test has been validated, but the FDAs independent review of this validation is pending.*Negative results do not preclude infection and should not be used as the sole basis for treatment or patient management. Optimum specimen types and timing for peak viral levels during infections caused by SARS-CoV-2 have not been determined. Collection of multiple specimens from the same patient may be necessary to detect the virus. The possibility of a false negative result should be considered if the patient has clinical presentation or has had recent exposure. Determination of erythrocyte mean corpuscular volume (MCV)Ordered By: Dr. Morales on 12-09-2022 MCV (RBC) [Entitic vol] 80.5 fL 81-99 [facility] Hematocrit Auto (Bld) [Volum e fraction]Ordered By: Dr. Morales on 12-09-2022 Hematocrit (Bld) [Volume fraction] 42.1 % 37-47 [facility] Laboratory - Chemistry and C hemistry - challengeOrdered By: Dr. Morales on 12-09-2022 CO2 [Moles/Vol] 24.0 mmol/L 21.0-32.0 [facility] Urea nitrogen/Creatinine [Mass ratio] 11.3 mg/mg 10-20 [facility] Laboratory - Hematology and Cell countsOrdered By: Dr. Morales on 12-09-2022 Erythrocyte distribution width (RBC) [Entitic vol] 42.3 fL 35.1-43.9 [facility] Erythrocyte distribution width (RBC) [Ratio] 14.6 % 11.6-14.6 [facility] Immature granulocytes/100 WBC (Bld) 0.400 % 0.0-0.9 [facility] Comment on above: IG% - Immature Granu locytes (promyelocytes, myelocytes and metamyelocytes) > 1% indicates that a LEFT SHIFT is Present. MCH (RBC) [Entitic mass] 24.7 pg 27.0-32.0 [facility] Nucleated RBC/100 WBC (Bld) [Ratio] 0 % 0-5 [facility] MCHC Auto (RBC) [Mass/Vol]Or dered By: Dr. Morales on 12-09-2022 MCHC (RBC) [Mass/Vol] 30.6 g/dL 32-36 [facility] No Panel InformationOrdered By: Dr. Morales on 12-09-2022 Estimated Creatinine Clearance Calc 42.68 ml/min [facility] Estimated GFR (MDRD) Amer 73 mL/min >60 [facility] Comment on above: GFR Calc Estimated GFR (MDRD) Non-Af Amer 60 mL/min >60 [facility] Comment on above: Non- GFR Calc Platelets bldOrdered By: Dr. Morales on 12-09-2022 Platelets (Bld) [#/Vol] 269 10*3/uL 150-450 [facility] Serum or plasma calcium rudolph urement (mass/volume)Ordered By: Dr. Morales on 12-09-2022 Calcium [Mass/Vol] 8.6 mg/dL 8.5-10.1 [facility] Serum or plasma creatinine m easurement (mass/volume)Ordered By: Dr. Morales on 12-09-2022 Creatinine [Mass/Vol] 0.97 mg/dL 0.55-1.02 [facility] Comment on above: The validity of the calculated GFR & GFRAA in patients over 70 years has not been determined. Clinical correlation is essential. Serum or plasma urea nitroge n measurement (mass/volume)Ordered By: Dr. Morales on 12-09-2022 Urea nitrogen [Mass/Vol] 11 mg/dL 7-18 [facility] Thin prep Papanicolaou smear with manual screeningOrdered By: Dr. Morales on 12-09-2022 Thin prep Papanicolaou smear with manual screening 9 5-15 [facility] EGD - THERAPEUTIC, EUS, OR T UBE INTERVENTIONSon 07-21-2022 [facility] Cervical spine WO contras ton 04-16-2022 1. No fracture or acute malalignment. 2. Mild degenerative changes of the cervical spine greatest involving the facet joints with asymmetric left facet arthropathy without substantial canal or foraminal stenosis. [facility] EXAMINATION: CT CERVICAL SPINE WITHOUT IV CONTRAST HISTORY: Neck pain, acute, no red flags COMPARISON: None. TECHNIQUE: CT Cervical spine without IV contrast. Coronal and sagittal reformations were performed. Dose reduction techniques were achieved by using automated exposure control and/or adjustment of mA and/or kV according to patient size and/or use of iterative reconstruction technique. FINDINGS: Alignment: No substantial subluxation. Vertebrae: Vertebral body heights are maintained. No fracture. Craniocervical junction: No focal abnormality. Degenerative changes: Multilevel mild degenerative changes of cervical spine are present with minimal anterior osteophytic spurring, multilevel mild to moderate facet arthropathy asymmetrically greater on the left, moderate to advanced at multiple levels. There is no substantial canal or foraminal stenosis. Additional Comments: Visualized portion of lung apices are clear. Atherosclerotic calcification of the left greater than right carotid bulb. [facility] Mabel Penny MD - 04/16/2022 EXAMINATION: CT CERVICAL SPINE WITHOUT IV CONTRAST HISTORY: Neck pain, acute, no red flags COMPARISON: None. TECHNIQUE: CT Cervical spine without IV contrast. Coronal and sagittal reformations were performed. Dose reduction techniques were achieved by using automated exposure control and/or adjustment of mA and/or kV according to patient size and/or use of iterative reconstruction technique. FINDINGS: Alignment: No substantial subluxation. Vertebrae: Vertebral body heights are maintained. No fracture. Craniocervical junction: No focal abnormality. Degenerative changes: Multilevel mild degenerative changes of cervical spine are present with minimal anterior osteophytic spurring, multilevel mild to moderate facet arthropathy asymmetrically greater on the left, moderate to advanced at multiple levels. There is no substantial canal or foraminal stenosis. Additional Comments: Visualized portion of lung apices are clear. Atherosclerotic calcification of the left greater than right carotid bulb. IMPRESSION: 1. No fracture or acute malalignment. 2. Mild degenerative changes of the cervical spine greatest involving the facet joints with asymmetric left facet arthropathy without substantial canal or foraminal stenosis. [facility] Rad[facility] Study observation (narrative) [facility] Cervical spine WO contras tOrdered By: Mabel Penny on 04-16-2022 [facility] Work Phone: XR Shoulder - left Viewson 0 04-16-2022 1. No acute osseous abnormality. 2. Mild glenohumeral and acromioclavicular osteoarthrosis. [facility] EXAM: XR SHOULDER LE FT MIN 2 VIEWS (ROUTINE) DATE: 04/16/2022 3:18 PM EDT INDICATION: pain COMPARISON: Chest radiographs 04/04/2022 TECHNIQUE: 4 views left shoulder FINDINGS: Osteopenia. No acute fracture. Normal osseous alignment. Osteophyte formation at the acromioclavicular and glenohumeral joints. Unchanged old left posterior lateral seventh rib fracture. Soft tissues are unremarkable. [facility] Fadumo Francisco MD - 04/16/2022 EXAM: XR SHOULDER LEFT MIN 2 VIEWS (ROUTINE) DATE: 04/16/2022 3:18 PM EDT INDICATION: pain COMPARISON: Chest radiographs 04/04/2022 TECHNIQUE: 4 views left shoulder FINDINGS: Osteopenia. No acute fracture. Normal osseous alignment. Osteophyte formation at the acromioclavicular and glenohumeral joints. Unchanged old left posterior lateral seventh rib fracture. Soft tissues are unremarkable. IMPRESSION: 1. No acute osseous abnormality. 2. Mild glenohumeral and acromioclavicular osteoarthrosis. [facility] Rad[facility] Study observation (narrative) [facility] XR Shoulder - left ViewsOrde red By: Fadumo Francisco on 04-16-2022 [facility] Work Phone: DBT Breast - bilateral scree brandogon 04-04-2022 Stable exam. No mammographic evidence of malignancy. BI-RADS 2 - Benign, no evidence of malignancy. Normal interval followup is recommended in 12 months. OVERALL ASSESSMENT- BENIGN A letter of notification will be sent to the patient regarding the results. [employer] and [employer] recommend annual mammograms for women 40 years and older. Category B: The breasts have scattered areas of fibroglandular density. ACR BI-RADS 2: Benign Routine Screening in 1 Year [facility] EXAM: MAMMO BILAT SCREENING DIGITAL W/PADMINI HISTORY: Encounter for screening mammogram for malignant neoplasm of breast: Asymptomatic screening. No family history of breast cancer. No prior breast surgeries. TECHNIQUE: Digital 2-D and 3-D craniocaudal and mediolateral oblique views of the right and left breast were obtained. CAD was reviewed. COMPARISON: Mammograms dating back to 08/06/2018. BREAST TISSUE: There are scattered areas of fibroglandular density. FINDINGS: There are benign secretory-type calcifications noted bilaterally. Bilateral skin lesion markers are seen. Stable nodular density in the lateral left breast suggesting an intramammary lymph node or fibrocystic change. Neither breast demonstrates suspicious grouped calcifications, developing mass, or architectural distortion. Fernando Peralta MD - 04/04/2022 EXAM: MAMMO BILAT SCREENING DIGITAL W/PADMINI HISTORY: Encounter for screening mammogram for malignant neoplasm of breast: Asymptomatic screening. No family history of breast cancer. No prior breast surgeries. TECHNIQUE: Digital 2-D and 3-D craniocaudal and mediolateral oblique views of the right and left breast were obtained. CAD was reviewed. COMPARISON: Mammograms dating back to 08/06/2018. BREAST TISSUE: There are scattered areas of fibroglandular density. FINDINGS: There are benign secretory-type calcifications noted bilaterally. Bilateral skin lesion markers are seen. Stable nodular density in the lateral left breast suggesting an intramammary lymph node or fibrocystic change. Neither breast demonstrates suspicious grouped calcifications, developing mass, or architectural distortion. IMPRESSION: Stable exam. No mammographic evidence of malignancy. BI-RADS 2 - Benign, no evidence of malignancy. Normal interval followup is recommended in 12 months. OVERALL ASSESSMENT- BENIGN A letter of notification will be sent to the patient regarding the results. [employer] and [employer] recommend annual mammograms for women 40 years and older. Category B: The breasts have scattered areas of fibroglandular density. ACR BI-RADS 2: Benign Routine Screening in 1 Year [facility] Radiology Study observation (narrative) [facility] DBT Breast - bilateral scree ningOrdered By: Fernando Nelson on 04-04-2022 [facility] Work Phone: Absolute lymphocyte counton 03-13-2022 Lymphocytes Auto (Unsp spec) [#/Vol] 0.85 10*3/uL 0.83-4.51 [facility] Work Phone: Basophil percentageon 2021 Basophil percentage >100 SEEN /hpf W [facility] Work Phone: Basophils/100 WBC (Bld) 0.3 % 0-1 [facility] Work Phone: Chloride [Moles/Vol] 106 mmol/L 98-107 [facility] Work Phone: Eosinophils/100 WBC (Bld) 0.4 % 0-5 [facility] Work Phone: Glucose [Mass/Vol] 175 mg/dL 74-106 [facility] Work Phone: Comment on above: Fasting Glucose resu lt greater than or equal to 126 mg/dL suggests DIABETES MELLITUS per A.D.A. criteria. Neutrophils (Bld) [#/Vol] 14.1 10*3/uL 2.0-7.7 [facility] Work Phone: Neutrophils/100 WBC (Bld) 88.9 % 47-70 [facility] Work Phone: Potassium [Moles/Vol] 4.0 mmol/L 3.5-5.1 [facility] Work Phone: Sodium [Moles/Vol] 137 mmol/L 136-145 [facility]: WBC (Bld) [#/Vol] 15.8 10*3/uL 4.4-11.0 [facility] Work Phone: Bilirubin Test strip Ql (U)o n 03-13-2022 Bilirubin Ql (U) Negative Negative [facility] Work Phone: Blood erythrocytes count (nu mber/volume)on 03-13-2022 RBC (Bld) [#/Vol] 4.96 10*6/uL 4.2-5.4 [facility] Work Phone: Blood hemoglobin measurement (mass/volume)on 03-13-2022 Hemoglobin (Bld) [Mass/Vol] 13.5 g/dL 12.0-15.0 [facility] Work Phone: Blood lymphocytes/100 leukoc yteson 03-13-2022 Lymphocytes/100 WBC (Bld) 5.4 % 19-41 [facility] Work Phone: Blood monocytes/100 leukocyt eson 03-13-2022 Monocytes/100 WBC (Bld) 4.6 % 0-10 [facility] Work Phone: Blood platelet mean volumeon 03-13-2022 Platelet mean volume (Bld) [Entitic vol] 10.2 fL 6.2-12.0 [facility] Work Phone: Determination of erythrocyte mean corpuscular volume (MCV)on 03-13-2022 MCV (RBC) [Entitic vol] 85.3 fL 81-99 [facility] Work Phone: Hematocrit Auto (Bld) [Volum e fraction]on 03-13-2022 Hematocrit (Bld) [Volume fraction] 42.3 % 37-47 [facility] Work Phone: Ketones Test strip Ql (U)on 03-13-2022 Ketones Ql (U) Negative Negative [facility] Work Phone: Laboratory - Chemistry and C hemistry - challengeon 03-13-2022 CO2 [Moles/Vol] 27.0 mmol/L 21.0-32.0 [facility] Work Phone: Natriuretic peptide B (Bld) [Mass/Vol] 102.6 pg/mL 0-100 [facility] Work Phone: Urea nitrogen/Creatinine [Mass ratio] 10.0 mg/mg 10-20 [facility] Work Phone: Laboratory - Hematology and Cell countson 03-13-2022 Erythrocyte distribution width (RBC) [Entitic vol] 44.8 fL 35.1-43.9 [facility] Work Phone: Erythrocyte distribution width (RBC) [Ratio] 14.5 % 11.6-14.6 [facility] Work Phone: Immature granulocytes/100 WBC (Bld) 0.400 % 0.0-0.9 [facility] Work Phone: Comment on above: IG% - Immature Granu locytes (promyelocytes, myelocytes and metamyelocytes) > 1% indicates that a LEFT SHIFT is Present. MCH (RBC) [Entitic mass] 27.2 pg 27.0-32.0 [facility] Work Phone: Nucleated RBC/100 WBC (Bld) [Ratio] 0 % 0-5 [facility] Work Phone: MCHC Auto (RBC) [Mass/Vol]on 03-13-2022 MCHC (RBC) [Mass/Vol] 31.9 g/dL 32-36 [facility] Work Phone: Mucus LM Ql (Urine sed)on Mucus Ql (Urine sed) 0 SEEN /hpf [facility] Work Phone: Nitrite Test strip Ql (U)on 03-13-2022 Nitrite Ql (U) Negative Negative [facility] Work Phone: No Panel Informationon 03-13 Estimated Creatinine Clearance Calc 40.07 ml/min [facility] Work Phone: Estimated GFR (MDRD) Amer 71 mL/min >60 [facility] Work Phone: Comment on above: GFR Calc Estimated GFR (MDRD) Non-Af Amer 58 mL/min >60 [facility] Work Phone: Comment on above: Non- GFR Calc SARS-CoV-2 & FLU Antigen (Rapid) [facility] Work Phone: Troponin I High Sensitivity 6 pg/mL 3.0-54.0 [facility] Work Phone: Comment on above: Please Note: New [place] t Units and Gender Specific Reference Ranges. For more information see Policy Stat Procedure [place] High Sensitivity Troponin (TNIH) and attachments. Platelets bldon 03-13-2022 Platelets (Bld) [#/Vol] 245 10*3/uL 150-450 [facility] Work Phone: Protein Test strip Ql (U)on 03-13-2022 Protein Ql (U) 15 mg/dl Negative [facility] Work Phone: Serum or plasma calcium rudolph urement (mass/volume)on 03-13-2022 Calcium [Mass/Vol] 9.3 mg/dL 8.5-10.1 [facility] Work Phone: Serum or plasma creatinine m easurement (mass/volume)on 03-13-2022 Creatinine [Mass/Vol] 1.00 mg/dL 0.55-1.02 [facility] Work Phone: Comment on above: The validity of the calculated GFR & GFRAA in patients over 70 years has not been determined. Clinical correlation is essential. Serum or plasma urea nitroge n measurement (mass/volume)on 03-13-2022 Urea nitrogen [Mass/Vol] 10 mg/dL 7-18 [facility] Work Phone: Squamous epithelial cells de tection in urine sediment by light microscopyon 03-13-2022 Epithelial cells.squamous LM Ql (Urine sed) 0 SEEN /hpf [facility] Work Phone: Thin prep Papanicolaou smear with manual screeningon 03-13-2022 Thin prep Papanicolaou smear with manual screening 4 5-15 [facility] Work Phone: Urine blood detectionon 06-0 RBC Ql (U) 150 /ul Negative [facility] Work Phone: RBC Ql (U) 0 SEEN /hpf [facility] Work Phone: Urine clarityon 03-13-2022 Clarity (U) Cloudy Clear [facility] Work Phone: Urine color determinationon 03-13-2022 Color (U) Yellow Yellow [facility] Work Phone: Urine glucose detectionon Glucose Ql (U) Normal mg/dl Normal [facility] Work Phone: Urine leukocyte esterase det ection by dipstickon 03-13-2022 Leukocyte esterase Test strip Ql (U) 500 /ul Negative [facility] Work Phone: Urine pHon 03-13-2022 pH (U) 7.0 [pH] [facility] Work Phone: Urine sediment bacteria coun t by microscopy (number/high power field)on 03-13-2022 Bacteria LM.HPF (Urine sed) [#/Area] 1 /[HPF] None Seen [facility] Work Phone: Urine specific gravity measu rementon 03-13-2022 Specific gravity (U) [Rel density] 1.010 [facility] Work Phone: Urobilinogen Auto test strip Ql (U)on 03-13-2022 Urobilinogen Ql (U) Normal mg/dl Normal [facility] Work Phone: CBC with Differentialon 04-0 Absolute Immature Granulocytes 0.0 0 10 3/uL [facility] Absolute Lymph 1.3 [facility] Absolute [place] 0.4 [facility] Basophils (Bld) [#/Vol] 0.1 10*3/uL [facility] Basophils/100 WBC (Bld) 0.6 % [facility] Eosinophils (Bld) [#/Vol] 0.1 10*3/uL [facility] Eosinophils/100 WBC (Bld) 0.9 % [facility] Erythrocyte distribution width (RBC) [Ratio] 14.6 % High 11.5 - 14.5 % [facility] Hematocrit (Bld) [Volume fraction] 44.3 % 33.6 - 46.8 % [facility] Hemoglobin (Bld) [Mass/Vol] 13.4 g/dL 11.7 - 15.8 g/dL [facility] Immature granulocytes/100 WBC (Bld) 0.3 % [facility] Interpretation and review of laboratory results Abnormal [facility] Lymphocytes/100 WBC (Bld) 14.0 % [facility] MCH (RBC) [Entitic mass] 26.0 pg Low 27.5 - 32.3 pg [facility] MCHC (RBC) [Mass/Vol] 30.2 g/dL Low 30.7 - 35.5 g/dl [facility] MCV (RBC) [Entitic vol] 85.9 fL 80.2 - 99.0 fL [facility] Monocytes/100 WBC (Bld) 4.4 % [facility] Neutrophils (Bld) [#/Vol] 7.4 10*3/uL High [facility] Neutrophils/100 WBC (Bld) 79.8 % [facility] Platelets (Bld) [#/Vol] 309.0 10*3/uL [facility] RBC (Bld) [#/Vol] 5.16 10*6/uL [facility] WBC LM Ql (Sput) 9.3 [facility] Comprehensive metabolic pane l aka Metaboon 01-13-2022 Albumin [Mass/Vol] 4.0 g/dL 3.5 - 5.0 g/dL [facility] Alk Phos 71 U/L 24 - 126 U/L [facility] ALT [Catalytic activity/Vol] 17 U/L 4 - 35 U/L [facility] AST [Catalytic activity/Vol] 23 U/L 3 - 47 U/L [facility] Bilirubin [Mass/Vol] 0.9 mg/dL 0.2 - 1 .6 mg/dL [facility] Calcium [Mass/Vol] 9.0 mg/dL 8.4 - 10. 4 mg/dL [facility] Chloride [Moles/Vol] 100 mmol/L 96 - 10 9 mmol/L [facility] CO2 [Moles/Vol] 26 mmol/L 22 - 30 mmol/L [facility] Creatinine [Mass/Vol] 0.90 mg/dL 0.52 - 1.04 mg/dL [facility] Glucose [Mass/Vol] 162 mg/dL High 65 - 100 mg/dL [facility] Interpretation and review of laboratory results Abnormal [facility] Potassium [Moles/Vol] 4.3 mmol/L 3.6 - 5.1 mmol/L [facility] Protein [Mass/Vol] 6.5 g/dL 6.3 - 8.2 g/dL [facility] Sodium [Moles/Vol] 134 mmol/L Low 135 - 147 mmol/L [facility] Urea nitrogen [Mass/Vol] 14 mg/dL 8 - 20 mg/dL [facility] GLOMERULAR FILTRATION RATEon 01-13-2022 GFR >60 [facility] Comment on above: To estimate the GFR for Americans, multiply the result provided by 1.21. Population mean GFR = 116 ml/min/1.73 sq.m. for ages 18-29 yrs. The MDRD is validated in individuals 18-70 years of age. It is less accurate in patients with extremes of muscle mass, restriction of dietary protein, ingestion of creatine, extra-renal metabolism of creatinine, or treatment with medications that affect renal tubular creatinine secretion. GFR Categories in Chronic Kidney Disease (CKD) Category: GFR(mL/min/1.73m^2) Interpretation: G1* 90 or greater Normal or high G2* 60-89 Mild decrease G3a 45-59 Mild to moderate decrease G3b 30-44 Moderate to severe decrease G4 15-29 Severe decrease G5 14 or less Kidney failure *G1&G2: In the absence of evidence of kidney damage, neither GFR category G1 nor G2 fulfill the criteria for CKD Kidney Int Suppl.2013;3:1-150 HbA1c (Bld) [Mass fraction]o n 01-13-2022 Interpretation and review of laboratory results Abnormal [facility] Hemoglobin A1con 01-13-2022 HbA1c (Bld) [Mass fraction] 6.5 % High 0.0 - 6.0 % [facility] Comment on above: Reference Interval f or %A1c %A1c (NGSP) Interpretation <6.0% Non-Diabetic Range >6.5% Action Suggested . No Panel Informationon 01-13 [facility] nRBC 0 [facility] TSHon 01-13-2022 TSH Qn 1.100 m[IU]/L [facility] ED Physician Documentationon 01-11-2022 ED Physician Documentation [address] [place] [address] Physician Documentation Signed:[id number] Name: COURTNEY DENG MRUN: [id number] : 1950 Loc: ED Age / Sex: 71/ F Adm Status: DEP ER Adm Date:01/11/22 Room/Bed: Disposition Decision - General Final diagnosis: Allergic dermatitis, Abdominal pain Disposition: HOME, SELF-CARE Condition: Good Instructions: Abdominal Pain, ED Contact Dermatitis, Allergy Overview Additional Instructions: Please monitor your symptoms closely at home. Return to ER if symptoms worsens. You have refused the diagnostic workup during this visit. Based on your history, I believe your symptoms are possibly related to Peptic Ulcer Disease, and Irritable bowel syndrome. Please continue on your Omeprazole. Additionally, I am going to prescribe you Carafate, which you need to take 4 times a day for your stomach pains. You need to followup with Gasteroenterologist or Surgeon for Endoscopy- preferably upper and lower. I have refer you to on-call surgeon, Dr. Camilo, please call and schedule an appointment. Rash on legs: It appears as allergic / contact dermatitis. As discussed, you need to watch for possible allergens, and avoid them. Short course of prednisone is prescribed. Please monitor your blood sugars closely. Followup with primary care physician within 2-3 days of discharge. Return to the ER if symptoms worsens. Referrals: [facility] [Provider Group] - In 2-3 Days (OR followup with your primary care physician if you have one . ) Wilbert Camilo MD, MD [Staff Physician] - In 1 Week New prescriptions/home medications: New Sucralfate [Carafate] 1 gm PO QID PRN #40 tab PRN Reason: Heartburn/Reflux predniSONE [Prednisone] 20 mg PO DAILY #5 tab No Action Omeprazole 20 mg PO DAILY Melatonin 10 mg PO HS Furosemide 20 mg PO DAILY Ezetimibe 10 mg PO DAILY Isosorbide Mononitrate [Isosorbide Mononitrate ER] 60 mg PO BID Ferrous Gluconate [Fergon] 324 mg PO BID Ranolazine [Ranolazine ER] 500 mg PO BID Potassium Gluconate [Potassium] 1 tab PO DAILY Cholecalciferol (Vitamin D3) [Vitamin D3] 50 mcg PO DAILY Quinapril HCl 5 mg PO DAILY Clopidogrel Bisulfate [Clopidogrel] 75 mg PO DAILY Clotrimazole/Betametha sone Dip [Clotrimazole-Betameth asone Crm] 1 applic TOPICAL BID Aspirin [Low Dose Aspirin EC] 1 tab PO DAILY HPI: Abdominal Complaint-Adult - Time Seen by Provider Time Seen by Provider: 01/11/22 07:46 - General Information Information source:: Patient - History of Present Illness Chief complaint: Abdominal Complaint - Adult Initial narrative: Patient is a 71 year old female with a complex PMH- Coronary Artery Disease, Myocardial Infarction, Hypertension, High Cholesterol, coronary stents, GERD, Osteoarthritis, Diabetes, Anxiety- present to the ER with a concern about abdominal pain. Abdominal Pain- Abd Pain is chronic. Patient reports that pt worsens almost everytime she eats. She takes medication for heart burn. She reports history of Irritable Bowel Syndrome. She does not report endoscopies performed. Patient reports she has trouble for almost 2 years. Reports my is here in the hospital for PET scan. I wanted to stop in the ER to see if there is anything else can be done. Patient also reports she has rash on bilateral legs. She does not know if she applied anything on the legs that caused the rash. The rash sometimes itches, but does not really bother her. This has been there for past 5-6 days. Denies any fevers, chills. MD Complaint: Abdominal Pain - Allergies Allergies/Adverse reactions: Allergies Allergy/AdvReac Type Severity Reaction Status Date / Time blackberry Allergy Hives Verified 01/11/22 07:46 diphenhydramine Allergy Nausea/Vomi Verified 01/11/22 07:46 [From Benadryl] ting metoprolol Allergy Unknown Verified 01/11/22 07:46 nitrofurantoin Allergy Hypotension Verified 01/11/22 07:46 [From Macrobid] Past Medical History - Available ancillary/Nurse notes reviewed History reviewed and agreed with:: Yes Past EENT history: Cataracts Past EENT surgeries/treatments: Cataract Extraction, Other Additional surgical history details: Carcinoma removed from the nose. Cataracts removed bilateral eyes. Past neurological history: Negative Past neurological surgeries/treatments: Negative Past cardiovascular history: Coronary Artery Disease, Myocardial Infarction, Hypertension, High Cholesterol Past cardiovascular surgeries/treatments:: Stents, Cardiac Cath, Echocardiogram, Stress Test Past respiratory history: Negative Past respiratory surgeries/treatments:: Negative Past gastrointestinal history: GERD Past gastrointestinal surgeries/treatments: EGD, Colonoscopy Additional surgical history details: 2019 no acute findings. Past genitourinary history: Urinary Tr (more content not included)... Normal [facility] TSHon 07-01-2021 TSH Qn 2.120 m[IU]/L [facility] Vitamin D 25 hydroxyon 07-01 25-hydroxyvitamin D [Mass/Vol] 19.1 ng/mL [facility] Comment on above: Reference Range: Deficiency: <20 ng/mL Insufficiency: 21-29 ng/mL Optimal Level: >=30 ng/mL Possible Toxicity: >80 ng/mL - 80 ng/mL is the lowest reported level associated with toxicity in patients without primary hyperthyroidism who have normal renal function. [facility] CBC with Differentialon 06-09 Absolute Immature Granulocytes 0.0 0 10 3/uL [facility] Absolute Lymph 1.9 [facility] Absolute [place] 0.7 High [facility] Basophils (Bld) [#/Vol] 0.0 10*3/uL [facility] Basophils/100 WBC (Bld) 0.6 % [facility] Eosinophils (Bld) [#/Vol] 0.1 10*3/uL [facility] Eosinophils/100 WBC (Bld) 2.0 % [facility] Erythrocyte distribution width (RBC) [Ratio] 13.5 % 11.5 - 14.5 % [facility] Hematocrit (Bld) [Volume fraction] 44.0 % 33.6 - 46.8 % [facility] Hemoglobin (Bld) [Mass/Vol] 13.6 g/dL 11.7 - 15.8 g/dL [facility] Immature granulocytes/100 WBC (Bld) 0.3 % [facility] Interpretation and review of laboratory results Abnormal [facility] Lymphocytes/100 WBC (Bld) 28.6 % [facility] MCH (RBC) [Entitic mass] 26.8 pg Low 27.5 - 32.3 pg [facility] MCHC (RBC) [Mass/Vol] 30.9 g/dL 30.7 - 35.5 g/dl [facility] MCV (RBC) [Entitic vol] 86.6 fL 80.2 - 99.0 fL [facility] Monocytes/100 WBC (Bld) 10.3 % [facility] Neutrophils (Bld) [#/Vol] 3.8 10*3/uL [facility] Neutrophils/100 WBC (Bld) 58.2 % [facility] Platelets (Bld) [#/Vol] 289.0 10*3/uL [facility] RBC (Bld) [#/Vol] 5.08 10*6/uL [facility] WBC LM Ql (Sput) 6.5 [facility] Comprehensive metabolic pane l aka Metaboon 06-30-2021 Albumin [Mass/Vol] 4.1 g/dL 3.5 - 5.0 g/dL [facility] Alk Phos 78 U/L 24 - 126 U/L [facility] ALT [Catalytic activity/Vol] 13 U/L 4 - 35 U/L [facility] AST [Catalytic activity/Vol] 22 U/L 3 - 47 U/L [facility] Bilirubin [Mass/Vol] 0.8 mg/dL 0.2 - 1 .6 mg/dL [facility] Calcium [Mass/Vol] 9.2 mg/dL 8.4 - 10. 4 mg/dL [facility] Chloride [Moles/Vol] 104 mmol/L 96 - 10 9 mmol/L [facility] CO2 [Moles/Vol] 25 mmol/L 22 - 30 mmol/L [facility] Creatinine [Mass/Vol] 0.88 mg/dL 0.52 - 1.04 mg/dL [facility] Glucose [Mass/Vol] 100 mg/dL 65 - 100 mg/dL [facility] Potassium [Moles/Vol] 4.4 mmol/L 3.6 - 5.1 mmol/L [facility] Protein [Mass/Vol] 6.8 g/dL 6.3 - 8.2 g/dL [facility] Sodium [Moles/Vol] 136 mmol/L 135 - 147 mmol/L [facility] Urea nitrogen [Mass/Vol] 15 mg/dL 8 - 20 mg/dL [facility] GLOMERULAR FILTRATION RATEon 06-30-2021 GFR >60 [facility] Comment on above: To estimate the GFR for Americans, multiply the result provided by 1.21. Population mean GFR = 116 ml/min/1.73 sq.m. for ages 18-29 yrs. The MDRD is validated in individuals 18-70 years of age. It is less accurate in patients with extremes of muscle mass, restriction of dietary protein, ingestion of creatine, extra-renal metabolism of creatinine, or treatment with medications that affect renal tubular creatinine secretion. GFR Categories in Chronic Kidney Disease (CKD) Category: GFR(mL/min/1.73m^2) Interpretation: G1* 90 or greater Normal or high G2* 60-89 Mild decrease G3a 45-59 Mild to moderate decrease G3b 30-44 Moderate to severe decrease G4 15-29 Severe decrease G5 14 or less Kidney failure *G1&G2: In the absence of evidence of kidney damage, neither GFR category G1 nor G2 fulfill the criteria for CKD Kidney Int Suppl.2013;3:1-150 Lipid panelon 06-30-2021 Cholesterol [Mass/Vol] 182 mg/dL 0 - 2 00 mg/dL [facility] Comment on above: CHOLESTEROL REFERENC E RANGE Desirable <200 mg/dL Borderline 200-239 mg/dL High >240 mg/dL . Cholesterol in HDL [Mass/Vol] 56.5 mg/dL 40.0 - 59.9 mg/dL [facility] Comment on above: Interpretive data fo r HDL Cholesterol states: HDL <40 mg/dL is low and constitutes a coronary disease risk factor. HDL >60 mg/dL is a negative risk factor for coronary heart disease. . Cholesterol in LDL [Mass/Vol] 81 mg/dL 0 - 100 mg/dL [facility] Comment on above: LDL REFERENCE RANGE Optimal <100 mg/dl Near Optimal 100-129 mg/dL Borderline High 130-159 mg/dL High 160-189 mg/dL Very High >=190 mg/dL . Cholesterol in VLDL [Mass/Vol] 45 mg/dL High <42 [facility] Interpretation and review of laboratory results Abnormal [facility] Triglyceride [Mass/Vol] 223 mg/dL High 0 - 150 mg/dL [facility] Comment on above: TRIGLYCERIDE REFEREN CE RANGE Normal <150 mg/dL Borderline High 150-199 mg/dL High 200-499 mg/dL Very High >=500 mg/dL . No Panel Informationon 06-30 [facility] nRBC 0 [facility] US RT Upper QuadrantOrdered By: Ralph Gibson on 04-19-2021 Unremarkable right upper quadrant ultrasound. [facility] EXAMINATION: RIGHT UPPER QUADRANT ULTRASOUND 04/19/2021 9:04 am COMPARISON: None. HISTORY: Epigastric abdominal pain FINDINGS: LIVER: The liver demonstrates normal echogenicity without evidence of intrahepatic biliary ductal dilatation. BILIARY SYSTEM: Gallbladder is unremarkable without evidence of pericholecystic fluid, wall thickening or stones. Negative sonographic Marin's sign. Common bile duct is 7.4 mm. RIGHT KIDNEY: The right kidney is grossly unremarkable without evidence of hydronephrosis. PANCREAS: Visualized portions of the pancreas are unremarkable. OTHER: No evidence of right upper quadrant ascites. [facility] Ruben, Rad Results In - 04/19/2021 10:10 AM EDT EXAMINATION: RIGHT UPPER QUADRANT ULTRASOUND 04/19/2021 9:04 am COMPARISON: None. HISTORY: Epigastric abdominal pain FINDINGS: LIVER: The liver demonstrates normal echogenicity without evidence of intrahepatic biliary ductal dilatation. BILIARY SYSTEM: Gallbladder is unremarkable without evidence of pericholecystic fluid, wall thickening or stones. Negative sonographic Marin's sign. Common bile duct is 7.4 mm. RIGHT KIDNEY: The right kidney is grossly unremarkable without evidence of hydronephrosis. PANCREAS: Visualized portions of the pancreas are unremarkable. OTHER: No evidence of right upper quadrant ascites. IMPRESSION: Unremarkable right upper quadrant ultrasound. [facility] EMERGENCY REPORTon 0 EMERGENCY REPORT [facility] EMERGENCY ROOM REPORT NAME ACCOUNT SEX AGE ADMIT DISCHARGE PT MED. RECORD# NUMBER DATE DATE TYPE COURTNEY DENG [id number] F [id number] 04/25/20 04/26/20 3 [id number] ROOM: ER DATE OF : 1950 DICTATING PHYSICIAN: Vaishali Lau CHIEF COMPLAINT: Abdominal pain. HISTORY OF PRESENT ILLNESS: 69-year-old female presents to the ER with complaint of abdominal pain radiating to the chest. The patient reports that she was recently discharged from [facility] after stent placement as well as upper and lower scoping for rectal bleed while she was hospitalized and was found to have hemorrhoids.. She reports that the abdominal pain started yesterday, which she rated a 2/10. The patient tried taking Tylenol, but it did not relieve the pain. She reports the pain is intermittent and describes it as burning in her upper abdomen radiating into her chest. The patient notes nausea but denies any vomiting. She denies any radiating pain to the neck, jaw, back or down her left arm. The patient reports that she has been compliant taking her home medications of Brilinta, atenolol and atorvastatin as well as blood pressure medication. However, she has not taken her atorvastatin this evening. She denies any fevers and reports some lightheadedness. She denies dizziness, falls, palpitations or chest pain except for the burning sensation in her chest which is radiating from her upper abdomen. She denies any pain or burning with urination and denies any blood in the urine or stool. She denies sick contacts or recent travel. PAST MEDICAL HISTORY: Coronary artery disease status post stents x3, hypertension, hyperlipidemia, and hemorrhoids. PAST SURGICAL HISTORY: None noted. REVIEW OF SYSTEMS: All negative except for what was mentioned positive in the HPI. PHYSICAL EXAMINATION: Vitals: Blood pressure is 129/59, heart rate 54, respiratory rate 18, temperature 98.6, and oxygen saturation 99% on room air. General: The patient is sitting on the ER bed in no acute distress. Skin: Warm and dry. HEENT: Normocephalic, atraumatic. PERRLA. Cardiovascular: Normal S1 and S2. No appreciated murmurs, rubs or gallops. Pulmonary: Lungs are clear to auscultation bilaterally with no appreciated wheezes, rales or rhonchi. Abdomen: Soft, positive bowel sounds, nontender and nondistended. Page 1 of 2 COURTNEY DENG Emergency Room Report COURTNEY DENG : 1950 Lymphatic: No appreciated swelling in the upper or lower extremities bilaterally. Vascular: Palpable pulses in the upper and lower extremities bilaterally. Neurologic: Nonfocal neurologic examination. MEDICAL DECISION-MAKING/EMERGE NCY DEPARTMENT COURSE AND TREATMENT: 69-year-old female who presents to the ER with complaint of upper abdominal pain with burning sensation radiating into her chest. Given the patient's recent stenting, I am concerned that the patient is having an acute coronary attack, in light of stenting (#1) and NSTEMI while in recovery requiring second LHC resuting in a total of 3 stents. EKG shows ventricular rate 56; T-wave inversions in V1, V2 and V3 with a prolonged QT. QT is 552, and QTc is 532. Troponin 0.43 and a potassium of 3.1. Although patient had recent stenting and has been compliant with her medications, I would like to have the patient transferred to [place] where she had LHC performed, for further evaluation and monitoring. She was given KCl 20 mEq during her stay and was also given aspirin 324 mg to chew. Nitro paste one inch provided some noted improvement in burning in her chest. On presentation, she had noted 5/10 burning chest pain today compared to 2/10 yesterday. I discussed the history and findings with the transfer center, and they noted that the patient's troponin on discharge was 2.3 (04/23/2020), with NSTEMI. No old EKG for comparison available here. The patient was accepted to [facility] and accepting physician, Dr. Trejo. The patient will be transported to [facility] for further evaluation and monitoring as well as trending of troponins. The patient remained stable during her stay in the ED and was transported in stable condition. DIAGNOSES: 1. Elevated troponin. 2. Hypokalemia with potassium of 3.1. 3. Prolonged QT. 4. Epigastric pain in the setting of a clear EGD. Dictated By: Vaishali Lau MD 04/26/20 01:53 JOB #: [id number] Transcribed By: [email or web address] 04/26/20 07:02 Electronically signed by: E-sign: Vaishali Lau MD 04/27/20 01:55 Page 2 of 2 COURTNEY DENG Emergency Room Report Normal [facility] BMP with eGFRon 04-26-2020 Age - Reported 69 years Normal [facility] Comment on above: Performed By: #### 2 [id number] #### [facility],[address] [place] [id number] Anion gap [Moles/Vol] 16 mmol/L Normal 10 - 20 [facility] Comment on above: Performed By: #### 2 [id number] #### [facility],[address] [place] [id number] Calcium [Mass/Vol] 9.2 mg/dL Normal 8.6 - 10.2 [facility] Comment on above: Performed By: #### 2 [id number] #### [facility],[address] [place] [id number] Chloride [Moles/Vol] 98 mmol/L Normal 98 - 107 [facility] Comment on above: Performed By: #### 2 [id number] #### [facility],[address] [place] [address]244 CO2 [Moles/Vol] 22.3 mmol/L Normal 21.0 - 31.0 [facility] Comment on above: Performed By: #### 2 [id number] #### [facility],[address] [place] [address]302 Creatinine [Mass/Vol] 0.8 mg/dL Normal 0.6 - 1.2 [facility] Comment on above: Performed By: #### 2 [id number] #### [facility],[address] [place] [address]46 GFR/1.73 sq M predicted among non-blacks MDRD (S/P/Bld) [Vol rate/Area] Normal [facility] Comment on above: Result Comment: BASI C METABOLIC PANEL Performed By: #### 2 [id number] #### [facility],[address] [place] [address]10 GFR/1.73 sq M predicted among non-blacks MDRD (S/P/Bld) [Vol rate/Area] mL/min/{1.73_m2} Normal 60 - 999 [facility] Comment on above: Result Comment: ACCO RDING TO THE NATIONAL KIDNEY DISEASE EDUCATION PROGRAM(NKDE), A NORMAL eGFR IS A VALUE GREATER THAN OR EQUAL TO 60 ML/MIN/1.73 SQ METERS. CHRONIC KIDNEY DISEASE: <60mL/MIN/1.73 SQ METERS KIDNEY FAILURE: <15mL/MIN/1.73 SQ METERS THIS TEST SHOULD ONLY BE USED FOR PATIENTS 18 YEARS OF AGE AND OLDER. Performed By: #### 2 [id number] #### [facility],[address] [place] [address]38 Glucose [Mass/Vol] 102 mg/dL Normal 74 - 106 [facility] Comment on above: Performed By: #### 2 [id number] #### [facility],[address] [place] [id number] Potassium [Moles/Vol] 3.1 mmol/L Low 3.5 - 5.1 [facility] [facility] Comment on above: Performed By: #### 2 [id number] #### [facility],[address] [place] [address] 19911 Sodium [Moles/Vol] 133 mmol/L Low 136 - 145 [facility] Comment on above: Performed By: #### 2 [id number] #### [facility],[address] [place] [address] 57681 Urea nitrogen [Mass/Vol] 10 mg/dL Normal 6 - 20 [facility] Comment on above: Performed By: #### 2 [id number] #### [facility],[address] [place] [address] 26379 CHEST 1 VIEWon 04-26-2020 CHEST 1 VIEW [place] [address] Patient: COURTNEY DENG Phone#: : 1950 Age: 69 Gender: F Pt. Type: ER Account: [id number] Location: 2 Ordering: DR. VAISHALI LAU Exam Date: 04/25/2020/21:49 Family Phys: RALPH GIBSON Charge Code: 382246 Physician: RACHANA YANES [place] Order #: [id number] DLP Dose#: PROCEDURE: X-RAY CHEST 1 VIEW COMPARISON: None. INDICATIONS: Recent stent FINDINGS: LUNGS: Normal. No significant pulmonary parenchymal abnormalities. VASCULATURE: Normal. Unremarkable pulmonary vasculature. CARDIAC: There is a stent projecting at the cardiac silhouette. No cardiac silhouette abnormality or cardiomegaly. MEDIASTINUM: Normal. No visible mass or adenopathy. PLEURA: Normal. No effusion or pleural thickening. BONES: There are degenerative changes of the spine OTHER: Monitoring leads project across the thorax CONCLUSION: No acute disease. No significant change has occurred. Dictated by: Rachana Yanes MD on 04/26/2020 at 9:29 Approved by: Rachana Yanes MD on 04/26/2020 at 9:29 Normal [facility] TROPONINon 04-26-2020 Troponin I.cardiac [Mass/Vol] 0.43 ng/mL Critically high 0.00 - 0.05 [facility] Comment on above: Result Comment: { CA LLED TO KERON AT 2218/HM { READ BACK BY KERON, RA 2218 Elevated troponin (above the 99th percentile) usually indicates myocardial ischemia. Results must be interpreted within the clinical setting. 1.Non-ischemic pathology can also cause elevated troponin levels (e.g., acute pulmonary embolism, myocarditis, pericarditis, heart failure, intracranial injury, rhabdomyolisis, sepsis, shock and renal insufficiency). 2.Approximately 1% of healthy adults have elevated troponin levels. 3.Analytical false positive results rarely occur(due to multiple interferences such as heterophile antibodies). Performed By: #### 2 [id number] #### [facility],[address] [place] [address] 69330 CBC + DIFFon 04-25-2020 Basophils (Bld) [#/Vol] 0.10 x10EE3/UL Normal 0.00 - 0.10 [facility] Comment on above: Performed By: #### 2 71428 #### [facility],[address] [place] [address] 55093 Basophils/100 WBC (Bld) 1.0 % Normal 0.0 - 2.0 [facility] Comment on above: Performed By: #### 2 36578 #### [facility],[address] [place] [address] CBC + DIFF Normal [facility] Comment on above: Result Comment: CBC- COMPLETE BLOOD COUNT Performed By: #### 2 29710 #### [facility],[address] [place] [address] Eosinophils (Bld) [#/Vol] 0.10 x10EE3/UL Normal 0.00 - 0.50 [facility] Comment on above: Performed By: #### 2 68547 #### [facility],[address] [place] [address] Eosinophils/100 WBC (Bld) 1.4 % Normal 0.0 - 7.0 [facility] Comment on above: Performed By: #### 2 68783 #### [place] [address] Erythrocyte distribution width (RBC) [Ratio] 13.8 % Normal 12.0 - 15.6 [facility] Comment on above: Performed By: #### 2 21431 #### [facility],[address] [place] [address] Hematocrit (Bld) [Volume fraction] 35.6 % Normal 34.0 - 46.0 [facility] Comment on above: Performed By: #### 2 81031 #### [facility],[address] [place] [address] Hemoglobin (Bld) [Mass/Vol] 12.1 g/dL Normal 12.0 - 16.0 [facility] Comment on above: Performed By: #### 2 17385 #### [place] [address] Lymphocytes (Bld) [#/Vol] 1.40 x10EE3/UL Normal 0.80 - 2.80 [facility] Comment on above: Performed By: #### 2 41784 #### [facility],[address] [place] [address] 89437 Lymphocytes/100 WBC (Bld) 17.0 % Low 20.0 - 45.0 [facility] Comment on above: Performed By: #### 2 03108 #### [facility],[address] [place] [address] 70513 MANUAL DIFF N/A Normal [facility] Comment on above: Performed By: #### 2 11862 #### [facility],[address] [place] [address] 84707 MCH (RBC) [Entitic mass] 27 pg Normal 27 - 33 [facility] Comment on above: Performed By: #### 2 76707 #### [facility],[address] [place] [address] 86604 MCHC (RBC) [Mass/Vol] 34 X10 3 Normal 32 - 36 [facility] Comment on above: Performed By: #### 2 89160 #### [facility],[address] [place] [address] 93095 MCV (RBC) [Entitic vol] 79 fL Low 80 - 99 [facility] Comment on above: Performed By: #### 2 17624 #### [facility],[address] [place] [address] 53487 Monocytes (Bld) [#/Vol] 0.80 x10EE3/UL Normal 0.20 - 1.00 [facility] Comment on above: Performed By: #### 2 88579 #### [facility],[address] [place] [address] 96046 MONOS % 9.3 % Normal 0.0 - 10.0 [facility] Comment on above: Performed By: #### 2 88855 #### [facility],[address] [place] [address] 36494 Morphology Kenneth (Bld) [Interp] N/A Normal [facility] Comment on above: Performed By: #### 2 77230 #### [facility],[address] [place] [address] 55104 Neutrophils (Bld) [#/Vol] 5.80 x10EE3/UL Normal 1.50 - 7.10 [facility] Comment on above: Performed By: #### 2 23626 #### [facility],[address] [place] [address] 26862 Neutrophils/100 WBC (Bld) 71.3 % Normal 46.0 - 76.0 [facility] Comment on above: Performed By: #### 2 68085 #### [facility],[address] [place] [address] 16410 Platelet mean volume (Bld) [Entitic vol] 8.5 fL Normal 6.6 - 10.5 [facility] Comment on above: Result Comment: AUTO MATED DIFFERENTIAL Performed By: #### 2 [id number] #### [address] [address] Platelets (Bld) [#/Vol] 266 x10EE3/UL Normal 150 - 450 [facility] Comment on above: Performed By: #### 2 23630 #### [address] [address] RBC (Bld) [#/Vol] 4.50 x 10EE6/UL Normal 4.10 - 5.30 [facility] Comment on above: Performed By: #### 2 50228 #### [facility],[address] [place] [address] 42601 WBC (Bld) [#/Vol] 8.1 x 10EE3/UL Normal 4.5 - 10.8 [facility] Comment on above: Performed By: #### 2 64785 #### [address] [address] Vital Signs Date Time Vital Sign Value Performing Clinician Facility 03-18-2025 00:02-0400 Diastolic blood pressure 69 mm[Hg] Alba Marcano MD Work Phone: [facility] 03-18-2025 00:02-0400 Heart rate 58 /min Alba Marcano MD Work Phone: [facility] 03-18-2025 00:02-0400 Respiratory rate 19 /min Alba Marcano MD Work Phone: [facility] 03-18-2025 00:02-0400 SaO2% (BldA) [Mass fraction] 97 % Alba Marcano MD Work Phone: [facility] 03-18-2025 00:02-0400 Systolic blood pressure 165 mm[Hg] Alba Marcano MD Work Phone: [facility] 03-17-2025 22:42-0400 Body temperature 98.29 [degF] Alba Marcano MD Work Phone: [facility] 03-17-2025 22:38-0400 Body height 154.9 cm Alba Marcano MD Work Phone: [facility] 03-17-2025 22:38-0400 Body mass index (BMI) [Ratio] 36.09 kg/m2 Alba Marcano MD Work Phone: [facility] 03-17-2025 22:38-0400 Body weight 86.64 kg Alba Marcano MD Work Phone: [facility] 02-23-2025 13:07-0400 Body height 154.[address] Ralph Gibson DO Work Phone: [facility] 02-23-2025 13:07-0400 Body mass index (BMI) [Ratio] 35.5 kg/m2 Dr. Ralph Gibson DO Work Phone: [facility] 02-23-2025 13:07-0400 Body weight 85.[address] Ralph Gibson DO Work Phone: [facility] 02-23-2025 13:07-0400 Diastolic blood pressure 77 mm[Hg] Dr. Ralph Gibson DO Work Phone: [facility] 02-23-2025 13:07-0400 Heart rate 54 /min Dr. Ralph Gibson DO Work Phone: [facility] 02-23-2025 13:07-0400 Respiratory rate 16 /min Dr. Ralph Gibson DO Work Phone: [facility] 02-23-2025 13:07-0400 Systolic blood pressure 171 mm[Hg] Dr. Ralph Gibson DO Work Phone: [facility] 01-21-2025 20:24-0400 Heart rate 69 /min Stephen Killian MD Work Phone: [facility] 01-21-2025 20:24-0400 Respiratory rate 24 /min Stephen Killian MD Work Phone: [facility] 01-21-2025 20:24-0400 SaO2% (BldA) [Mass fraction] 99 % Stephen Killian MD Work Phone: [facility] 01-21-2025 20:23-0400 Diastolic blood pressure 74 mm[Hg] Stephen Killian MD Work Phone: [facility] 01-21-2025 20:23-0400 Systolic blood pressure 158 mm[Hg] Stephen Killian MD Work Phone: [facility] 01-21-2025 19:33-0400 Body temperature 98.01 [degF] Stephen Killian MD Work Phone: [facility] 01-21-2025 16:42-0400 Body height 154.9 cm Stephen Killian MD Work Phone: [facility] 01-21-2025 16:42-0400 Body mass index (BMI) [Ratio] 36.09 kg/m2 Stephen Killian MD Work Phone: [facility] 01-21-2025 16:42-0400 Body weight 86.64 kg Stephen Killian MD Work Phone: [facility] 12-16-2024 09:00-0400 Body temperature 97 [degF] Alexis Draper MD Work Phone: [facility] 12-16-2024 09:00-0400 Diastolic blood pressure 64 mm[Hg] Alexis Draper MD Work Phone: [facility] 12-16-2024 09:00-0400 Heart rate 63 /min Alexis Draper MD Work Phone: [facility] 12-16-2024 09:00-0400 Respiratory rate 20 /min Alexis Draper MD Work Phone: [facility] 12-16-2024 09:00-0400 SaO2% (BldA) [Mass fraction] 96 % Alexis Draper MD Work Phone: [facility] 12-16-2024 09:00-0400 Systolic blood pressure 131 mm[Hg] Alexis Draper MD Work Phone: [facility] 12-16-2024 07:49-0400 Body height 154.9 cm Alexis Draper MD Work Phone: [facility] 12-16-2024 07:49-0400 Body mass index (BMI) [Ratio] 36.87 kg/m2 Alexis Draper MD Work Phone: [facility] 12-16-2024 07:49-0400 Body weight 88.5 kg Alexis Draper MD Work Phone: [facility] 11-18-2024 10:44-0500 Body height 154.9 cm Bib Wolbach PA-C Work Phone: [facility] 11-18-2024 10:44-0500 Body mass index (BMI) [Ratio] 37.03 kg/m2 Bib Wolbach PA-C Work Phone: [facility] 11-18-2024 10:44-0500 Body weight 88.91 kg Bib Martin PA-C Work Phone: [facility] 10-31-2024 10:53-0500 Body height 154.[address] [facility] 10-31-2024 10:53-0500 Body mass index (BMI) [Ratio] 37.03 kg/m2 Daina Dewey RD [facility] 10-31-2024 10:53-0500 Body weight 88.[address] [facility] 10-22-2024 12:57-0500 Body height 154.9 cm Esteban Vázquez PA-C Work Phone: [facility] 10-22-2024 12:57-0500 Body mass index (BMI) [Ratio] 37.22 kg/m2 Esteban Vázquez PA-C Work Phone: [facility] 10-22-2024 12:57-0500 Body temperature 98.01 [degF] Esteban Vázquez PA-C Work Phone: [facility] 10-22-2024 12:57-0500 Body weight 89.36 kg Esteban Smith PA-C Work Phone: [facility] 10-22-2024 12:57-0500 Diastolic blood pressure 70 mm[Hg] Esteban Vázquez PA-C Work Phone: [facility] 10-22-2024 12:57-0500 Heart rate 63 /min Esteban Vázquez PA-C Work Phone: [facility] 10-22-2024 12:57-0500 Respiratory rate 18 /min Esteban Vázquez PA-C Work Phone: [facility] 10-22-2024 12:57-0500 SaO2% (BldA) [Mass fraction] 98 % Esteban Vázquez PA-C Work Phone: [facility] 10-22-2024 12:57-0500 Systolic blood pressure 126 mm[Hg] Esteban Vázquez PA-C Work Phone: [facility] 08-14-2024 18:01-0500 Body height 154.9 cm Ralph Gibson DO Work Phone: [facility] 08-14-2024 18:01-0500 Body mass index (BMI) [Ratio] 37.22 kg/m2 Ralph Gibson DO Work Phone: [facility] 08-14-2024 18:01-0500 Body temperature 97.7 [degF] Ralph Gibson DO Work Phone: [facility] 08-14-2024 18:01-0500 Body weight 89.36 kg Ralph Gibson DO Work Phone: [facility] 08-14-2024 18:01-0500 Diastolic blood pressure 68 mm[Hg] Ralph Gibson DO Work Phone: [facility] 08-14-2024 18:01-0500 Heart rate 67 /min Ralph Gibson DO Work Phone: [facility] 08-14-2024 18:01-0500 Respiratory rate 18 /min Ralph Gibson DO Work Phone: [facility] 08-14-2024 18:01-0500 SaO2% (BldA) [Mass fraction] 97 % Ralph Gibson DO Work Phone: [facility] 08-14-2024 18:01-0500 Systolic blood pressure 147 mm[Hg] Ralph Gibson DO Work Phone: [facility] 07-22-2024 11:27-0400 Body height 154.9 cm [facility] 07-22-2024 11:27-0400 Body mass index (BMI) [Ratio] 37.79 kg/m2 [facility] 07-22-2024 11:27-0400 Body weight 90.72 kg [facility] 09-30-2023 02:28-0500 Body height 154.9 cm Linden Marie MD Work Phone: [facility] 09-30-2023 02:28-0500 Body mass index (BMI) [Ratio] 38.73 kg/m2 Linden Marie MD Work Phone: [facility] 09-30-2023 02:28-0500 Body temperature 98.01 [degF] Linden Marie MD Work Phone: [facility] 09-30-2023 02:28-0500 Body weight 92.99 kg Linden Marie MD Work Phone: [facility] 09-30-2023 02:28-0500 Diastolic blood pressure 75 mm[Hg] Linden Marie MD Work Phone: [facility] 09-30-2023 02:28-0500 Heart rate 64 /min Linden Marie MD Work Phone: [facility] 09-30-2023 02:28-0500 Respiratory rate 16 /min Linden Marie MD Work Phone: [facility] 09-30-2023 02:28-0500 SaO2% (BldA) [Mass fraction] 96 % Linden Marie MD Work Phone: [facility] 09-30-2023 02:28-0500 Systolic blood pressure 173 mm[Hg] Linden Marie MD Work Phone: [facility] 09-30-2023 00:14-0500 Diastolic blood pressure 77 mm[Hg] Ralph Gibson DO Work Phone: [facility] 09-30-2023 00:14-0500 Heart rate 53 /min Ralph Gibson DO Work Phone: [facility] 09-30-2023 00:14-0500 Respiratory rate 20 /min Ralph Gibson DO Work Phone: [facility] 09-30-2023 00:14-0500 SaO2% (BldA) [Mass fraction] 96 % Ralph Gibson DO Work Phone: [facility] 09-30-2023 00:14-0500 Systolic blood pressure 162 mm[Hg] Ralph Gibson DO Work Phone: [facility] 09-29-2023 21:57-0500 Body height 154.9 cm Ralph Voradee DO Work Phone: [facility] 09-29-2023 21:57-0500 Body mass index (BMI) [Ratio] 38.73 kg/m2 Ralph Beccasarai DO Work Phone: [facility] 09-29-2023 21:57-0500 Body temperature 97.5 [degF] Ralph Beccasarai DO Work Phone: [facility] 09-29-2023 21:57-0500 Body weight 92.99 kg Ralph Beccasarai DO Work Phone: [facility] 09-23-2023 09:47-0500 Diastolic blood pressure 63 mm[Hg] Santo Elam MD Work Phone: [facility] 09-23-2023 09:47-0500 Heart rate 52 /min Santo Elam MD Work Phone: [facility] 09-23-2023 09:47-0500 SaO2% (BldA) [Mass fraction] 97 % Santo Elam MD Work Phone: [facility] 09-23-2023 09:47-0500 Systolic blood pressure 133 mm[Hg] Santo Elam MD Work Phone: [facility] 09-23-2023 06:33-0500 Body height 154.9 cm Santo Elam MD Work Phone: [facility] 09-23-2023 06:33-0500 Body mass index (BMI) [Ratio] 38.73 kg/m2 Santo Elam MD Work Phone: [facility] 09-23-2023 06:33-0500 Body temperature 98.01 [degF] Santo Elam MD Work Phone: [facility] 09-23-2023 06:33-0500 Body weight 92.99 kg Santo Elam MD Work Phone: [facility] 09-23-2023 06:33-0500 Respiratory rate 17 /min Santo Elam MD Work Phone: [facility] 08-13-2023 14:40-0500 Diastolic blood pressure 72 mm[Hg] [facility] 08-13-2023 14:40-0500 Heart rate 68 /min [facility] 08-13-2023 14:40-0500 Respiratory rate 16 /min [facility] 08-13-2023 14:40-0500 SaO2% (BldA) [Mass fraction] 98 % [facility] 08-13-2023 14:40-0500 Systolic blood pressure 149 mm[Hg] [facility] 08-13-2023 12:34-0500 Body height 154.94 cm [facility] 08-13-2023 12:34-0500 Body mass index (BMI) [Ratio] 39.2 kg/m2 [facility] 08-13-2023 12:34-0500 Body temperature 97.6 [degF] [facility] 08-13-2023 12:34-0500 Body weight 94.34 kg [facility] 08-02-2023 06:15-0400 Diastolic blood pressure 60 mm[Hg] Derrick Esquivel DO Work Phone: [facility] 08-02-2023 06:15-0400 Heart rate 51 /min Derrick Esquivel DO Work Phone: [facility] 08-02-2023 06:15-0400 Respiratory rate 16 /min Derrick Esquivel DO Work Phone: [facility] 08-02-2023 06:15-0400 SaO2% (BldA) [Mass fraction] 94 % Derrick Esquivel DO Work Phone: [facility] 08-02-2023 06:15-0400 Systolic blood pressure 120 mm[Hg] Derrick Esquivel DO Work Phone: [facility] 08-02-2023 02:26-0400 Body height 154.9 cm Derrick Esquivel DO Work Phone: [facility] 08-02-2023 02:26-0400 Body mass index (BMI) [Ratio] 38.73 kg/m2 Derrick Esquivel DO Work Phone: [facility] 08-02-2023 02:26-0400 Body temperature 97.59 [degF] Derrick Esquivel DO Work Phone: [facility] 08-02-2023 02:26-0400 Body weight 92.99 kg Derrick Esquivel DO Work Phone: [facility] 12-23-2022 20:43-0400 Diastolic blood pressure 63 mm[Hg] [facility] 12-23-2022 20:43-0400 Heart rate 63 /min [facility] 12-23-2022 20:43-0400 Respiratory rate 19 /min [facility] 12-23-2022 20:43-0400 SaO2% (BldA) [Mass fraction] 97 % [facility] 12-23-2022 20:43-0400 Systolic blood pressure 149 mm[Hg] [facility] 12-23-2022 19:50-0400 Body height 154.94 cm [facility] 12-23-2022 19:50-0400 Body mass index (BMI) [Ratio] 39.3 kg/m2 [facility] 12-23-2022 19:50-0400 Body temperature 98 [degF] [facility] 12-23-2022 19:50-0400 Body weight 94.4 kg [facility] 12-09-2022 17:01-0500 Diastolic blood pressure 44 mm[Hg] [facility] 12-09-2022 17:01-0500 Heart rate 55 /min [facility] 12-09-2022 17:01-0500 Respiratory rate 20 /min [facility] 12-09-2022 17:01-0500 SaO2% (BldA) [Mass fraction] 94 % [facility] 12-09-2022 17:01-0500 Systolic blood pressure 140 mm[Hg] [facility] 12-09-2022 16:31-0500 Body temperature 97.2 [degF] [facility] 03-04-2023 15:35-0500 Body height 157.48 cm [facility] 12-09-2022 15:35-0500 Body mass index (BMI) [Ratio] 36.9 kg/m2 [facility] 12-09-2022 15:35-0500 Body weight 91.62 kg [facility] 07-21-2022 16:45-0400 Heart rate 49 /min Dmitri Akins MD Work Phone: [facility] 07-21-2022 16:45-0400 SaO2% (BldA) [Mass fraction] 97 % Dmitri Akins MD Work Phone: [facility] 07-21-2022 16:40-0400 Diastolic blood pressure 65 mm[Hg] Dmitri Akins MD Work Phone: [facility] 07-21-2022 16:40-0400 Systolic blood pressure 147 mm[Hg] Dmitri Akins MD Work Phone: [facility] 07-21-2022 16:30-0400 Respiratory rate 16 /min Dmitri Akins MD Work Phone: [facility] 07-21-2022 16:19-0400 Body temperature 97.3 [degF] Dmitri Akins MD Work Phone: [facility] 07-04-2022 12:59-0400 Body height 154.9 cm Misti Palafox MD Work Phone: [facility] 07-04-2022 12:59-0400 Body temperature 96.49 [degF] Misti aPlafox MD Work Phone: [facility] 07-04-2022 12:59-0400 Body weight 95.25 kg Misti Palafox MD Work Phone: [facility] 07-04-2022 12:59-0400 Diastolic blood pressure 85 mm[Hg] Misti Palafox MD Work Phone: [facility] 07-04-2022 12:59-0400 Heart rate 55 /min Misti Palafox MD Work Phone: [facility] 07-04-2022 12:59-0400 SaO2% (BldA) [Mass fraction] 97 % Misti Palafox MD Work Phone: [facility] 07-04-2022 12:59-0400 Systolic blood pressure 168 mm[Hg] Misti Palafox MD Work Phone: [facility] 05-23-2022 11:26-0400 Diastolic blood pressure 63 mm[Hg] Suzy James MD Work Phone: [facility] 05-23-2022 11:26-0400 Respiratory rate 20 /min Suzy James MD Work Phone: [facility] 05-23-2022 11:26-0400 Systolic blood pressure 125 mm[Hg] Suzy James MD Work Phone: [facility] 05-23-2022 11:20-0400 Heart rate 49 /min Suzy James MD Work Phone: [facility] 05-23-2022 11:20-0400 SaO2% (BldA) [Mass fraction] 96 % Suzy James MD Work Phone: [facility] 05-23-2022 11:01-0400 Body temperature 96.8 [degF] Suzy James MD Work Phone: [facility] 05-23-2022 10:24-0400 Body mass index (BMI) [Ratio] 38.3 kg/m2 Suzy James MD Work Phone: [facility] 05-23-2022 10:24-0400 Body weight 96.53 kg Suzy James MD Work Phone: [facility] 04-16-2022 14:17-0400 Body height 154.9 cm Adonay Vázquez DO Work Phone: [facility] 04-16-2022 14:17-0400 Body mass index (BMI) [Ratio] 40.21 kg/m2 Adonay Vázquez DO Work Phone: [facility] [employer] 04-16-2022 14:17-0400 Body temperature 97.9 [degF] Adonay Vázquez DO Work Phone: [facility] [employer] 04-16-2022 14:17-0400 Body weight 96.53 kg Adonay Vázquez DO Work Phone: [facility] [employer] 04-16-2022 14:17-0400 Diastolic blood pressure 76 mm[Hg] Adonay Vázquez DO Work Phone: [facility] [employer] 04-16-2022 14:17-0400 Heart rate 60 /min Adonay Vázquez DO Work Phone: [facility] [employer] 04-16-2022 14:17-0400 Respiratory rate 18 /min Adonay Vázquez DO Work Phone: [facility] 04-16-2022 14:17-0400 SaO2% (BldA) [Mass fraction] 97 % Adonay Vázquez DO Work Phone: [facility] 04-16-2022 14:17-0400 Systolic blood pressure 174 mm[Hg] Adonay Vázquez DO Work Phone: [facility] 03-13-2022 15:07-0400 Diastolic blood pressure 71 mm[Hg] [facility] Work Phone: 03-13-2022 15:07-0400 Heart rate 62 /min [facility] Work Phone: 03-13-2022 15:07-0400 Respiratory rate 16 /min [facility] Work Phone: 03-13-2022 15:07-0400 SaO2% (BldA) [Mass fraction] 96 % [facility] Work Phone: 03-13-2022 15:07-0400 Systolic blood pressure 134 mm[Hg] [facility] Work Phone: 03-13-2022 13:47-0400 Body temperature 99.2 [degF] [facility] Work Phone: 03-13-2022 11:22-0400 Body height 154.94 cm [facility] Work Phone: 03-13-2022 11:22-0400 Body mass index (BMI) [Ratio] 40.6 kg/m2 [facility] Work Phone: 03-13-2022 11:22-0400 Body weight 97.52 kg [facility] Work Phone: Encounters Encounter Date Encounter Type Care Provider Facility Start: 03-24-2025 ambulatory Layla GRIFFITHS Facility:[facility] Start: 03-17-2025 End: 03-18-2025 Emergency department patient visit Alba Marcano MD Work Phone: [facility] Emergency Dept Comment on above: Palpitations (Primar y Dx) Start: 02-23-2025 End: 02-23-2025 Patient encounter procedure Layla GRIFFITHS -[facility] Work Phone: Start: 02-23-2025 End: 02-23-[address] Ralph Gibson DO Work Phone: [facility] Work Phone: Start: 01-21-2025 End: 01-21-2025 Emergency department patient visit Stephen Killian MD Work Phone: [facility] Comment on above: Food impaction of es ophagus, initial encounter (Primary Dx) Start: 12-16-2024 ambulatory MALINDA Mata lity:[id number] Start: 12-16-2024 End: 12-16-2024 Subsequent hospital visit by physician Alexis Draper MD Work Phone: [facility] Comment on above: Fatima's esophagus without dysplasia [K22.70] Start: 11-19-2024 End: 11-20-2024 Follow-up encounter Esteban Vázquez PA-C Work Phone: [facility] Start: 11-18-2024 End: 11-18-2024 Patient encounter procedure Bib Restrepo PA-C Work Phone: [facility] [[email or web address] Comment on above: Fatima's esophagus without dysplasia; Dysphagia, unspecified type Start: 11-18-2024 End: 11-18-2024 ambulatory BIB RESTREPO Facility:[id number] Start: 11-10-2024 ambulatory ESTEBAN JORDA Evelin VÁZQUEZ Facility:[id number] Start: 11-10-2024 End: 11-10-2024 Subsequent hospital visit by physician Screen Mammo [facility] MAMMOGRAPHY Comment on above: Encounter for screen ing mammogram for breast cancer [Z12.31] Start: 10-31-2024 End: 10-31-2024 Nutrition therapy Daina Dewey RD Nutrition Therapy Comment on above: Dietary counseling ( Primary Dx); Fatima's esophagus without dysplasia; Type 2 diabetes mellitus without complication, without long-term current use of insulin (HCC); Gastroesophageal reflux disease, unspecified whether esophagitis present Start: 10-31-2024 End: 10-31-2024 Telemedicine consultation with patient Daina Dewey RD Nutrition Therapy Start: 10-31-2024 ambulatory [facility] Start: 10-24-2024 End: 10-24-2024 Telephone encounter Esteban Vázquez PA-C Work Phone: [facility] Start: 10-23-2024 ambulatory Layla GRIFFITHS Facility:[facility] Start: 10-22-2024 End: 10-22-2024 Telephone encounter Esteban Vázquez PA-C Work Phone: [facility] Comment on above: general surgery mammogram Results Start: 10-22-2024 End: 10-22-2024 Patient encounter procedure Esteban Vázquez PA-C Work Phone: [facility] Comment on above: Type 2 diabetes jacek itus without complication, without long- term current use of insulin (HCC) (Primary Dx); Essential (primary) hypertension; Hyperlipemia, mixed; Congestive heart failure, unspecified HF chronicity, unspecified heart failure type (HCC); Atherosclerosis of ewiiaapaayp coronary artery of ewiiaapaayp heart without angina pectoris; Fatima's esophagus without dysplasia; Dysphagia, unspecified type; Gastroesophageal reflux disease, unspecified whether esophagitis present; Basal cell carcinoma (BCC), unspecified site; Encounter for screening mammogram for breast cancer; Abnormal urine odor; Class 2 severe obesity due to excess calories with serious comorbidity and body mass index (BMI) of 37.0 to 37.9 in adult ([facility]); Encounter for screening examination for other mental health and behavioral disorders Start: 10-22-2024 End: 10-22-2024 ambulatory ESTEBANNELSON VÁZQUEZ Facility:[id number] Start: 09-24-2024 End: 09-24-2024 ambulatory Layla GRIFFITHS Facility:[facility] [place] [place] Start: 09-24-2024 End: 09-24-2024 ambulatory Layla GRIFFITHS Facility:[facility] Start: 08-14-2024 End: 08-14-2024 Emergency department patient visit RALPH GIBSON [facility] Emergency Dept Comment on above: Degeneration, interv ertebral disc, cervical (Primary Dx); Strain of neck muscle, initial encounter; Acute pain of left shoulder Start: 07-25-2024 End: 07-30-2024 Telephone encounter Latisha Calabrese APRN.CNP Work Phone: Pre Anesthesia Start: 07-23-2024 End: 07-23-2024 Telephone encounter Latisha Calabrese APRN.CNP Work Phone: Pre Anesthesia Comment on above: Request Outside [facility] Start: 07-22-2024 End: 07-22-2024 Admission to establishment [facility] Pre Anesthesia Start: 07-22-2024 End: 07-22-2024 ambulatory RALPH GIBSON Facility:[facility] Start: 07-22-2024 End: 07-22-2024 Anesthesia consultation [facility] Pre Anesthesia Comment on above: Pre-operative examin ation (Primary Dx); Atherosclerosis of ewiiaapaayp coronary artery of ewiiaapaayp heart without angina pectoris; Fatima's esophagus without dysplasia; Hiatal hernia; Essential (primary) hypertension; Gastroesophageal reflux disease, unspecified whether esophagitis present; Hyperlipemia, mixed; Class 2 severe obesity due to excess calories with serious comorbidity and body mass index (BMI) of 37.0 to 37.9 in adult (HCC); Type 2 diabetes mellitus without complication, without long-term current use of insulin (HCC); Angina pectoris, unspecified (HCC); Basal cell carcinoma (BCC), unspecified site; Congestive heart failure, unspecified HF chronicity, unspecified heart failure type (HCC) Start: 07-22-2024 End: 07-22-2024 Preprocedural examination done [facility] Start: 07-11-2024 End: 07-11-2024 ambulatory RALPH GIBSON [employer] [facility] Start: 06-24-2024 End: 06-24-2024 ambulatory Layla GRIFFITHS Facility:[facility] [place] [place] Start: 06-18-2024 End: 06-18-2024 ambulatory Derrick Manriquez MD Work Phone: Gastroenterology Comment on above: 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); Gastroesophageal reflux disease without esophagitis; Fatima's esophagus without dysplasia; Esophageal dysphagia Start: 06-18-2024 End: 06-18-2024 Telemedicine consultation with patient Derrick Manriquez MD Work Phone: Gastroenterology Start: 06-16-2024 End: 06-16-2024 ambulatory RALPH GIBSON [employer] [facility] Start: 11-07-2023 End: 11-07-2023 Subsequent hospital visit by physician Ralph Gibson DO Work Phone: [facility] Comment on above: Screening mammogram, encounter for Start: 09-30-2023 End: 09-30-2023 Emergency department patient visit Linden Marie MD Work Phone: [facility] Emergency Dept Comment on above: Hyperglycemia (Prima ry Dx) Start: 09-29-2023 End: 09-30-2023 Emergency department patient visit Ralph Gibson DO Work Phone: [facility] Emergency Dept Comment on above: Viral URI with cough (Primary Dx) Start: 09-27-2023 End: 09-27-2023 Subsequent hospital visit by physician Fernando Diaz MD Work Phone: [facility] Comment on above: Epigastric pain; Chronic right upper quadrant pain Start: 09-23-2023 End: 09-23-2023 Emergency department patient visit Santo Elam MD Work Phone: [facility] Emergency Dept Comment on above: RUQ pain (Primary Dx ); Nausea Start: 09-21-2023 End: 09-21-2023 ambulatory RALPH GIBSON Facility: Start: 08-13-2023 End: 08-13-2023 Emergency department patient visit [facility] Work Phone: Start: 08-02-2023 End: 08-02-2023 Emergency department patient visit Derrick Esquivel DO Work Phone: [facility] Emergency Dept Comment on above: Chest pain, unspecif ied type (Primary Dx) Start: 07-02-2023 End: 07-02-2023 Subsequent hospital visit by physician Ralph Gibson DO Work Phone: [facility] Comment on above: 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 Start: 01-12-2023 End: 01-12-2023 Subsequent hospital visit by physician Ralph Gibson DO Work Phone: [facility] Comment on above: Pneumonia due to COV ID-19 virus Start: 12-23-2022 End: 12-23-2022 Emergency department patient visit [facility] Start: 12-09-2022 End: 12-09-2022 Emergency department patient visit [facility] Start: 08-02-2022 Telephone encounter Derrick Manriquez MD Work Phone: Gastroenterology Comment on above: Received Outside Med ical Records Start: 07-21-2022 End: 07-21-2022 Subsequent hospital visit by physician Dmitri Akins MD Work Phone: Gastroenterology Comment on above: Fatima's esophagus with low grade dysplasia [K22.710] Start: 07-14-2022 Telephone encounter Roxanne Edwards RNmachined parts quality inspector Comment on above: Appointment Confirma tion Start: 07-04-2022 End: 07-04-2022 Patient encounter procedure Misti Palafox MD Work Phone: Gastroenterology Comment on above: 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); Gastroesophageal reflux disease with esophagitis without hemorrhage Start: 06-29-2022 Patient encounter status [facility] Start: 06-29-[address] Ralph victoria DO Work Phone: [facility] Start: 05-23-2022 End: 05-23-2022 Subsequent hospital visit by physician Suzy James MD Work Phone: [facility] Comment on above: GERD (gastroesophage al reflux disease); GERD (gastroesophageal reflux disease) Start: 04-16-2022 End: 04-16-2022 Emergency department patient visit Adonay Vázquez DO Work Phone: [facility] Emergency Dept Comment on above: Cervical radiculopat hy (Primary Dx) Start: 04-04-2022 End: 04-04-2022 Subsequent hospital visit by physician Ralph Gibson DO Work Phone: [facility] Comment on above: Screening mammogram, encounter for Start: 03-13-2022 End: 03-13-2022 Emergency department patient visit [facility] Start: 01-13-2022 End: 01-13-2022 Subsequent hospital visit by physician Ralph Gibson DO Work Phone: [facility] Comment on above: Upper abdominal pain ; Essential hypertension; Impaired glucose tolerance Start: 06-30-2021 End: 06-30-2021 Subsequent hospital visit by physician Ralph Gibson DO Work Phone: [facility] Comment on above: Essential hypertensi on; Coronary artery disease involving ewiiaapaayp coronary artery of ewiiaapaayp heart without angina pectoris; Impaired glucose tolerance; Vitamin D deficiency Start: 04-19-2021 End: 04-19-2021 Subsequent hospital visit by physician Ralph Gibson DO Work Phone: [facility] Comment on above: Epigastric abdominal pain Start: 04-25-2020 End: 04-26-2020 Emergency department patient visit VAISHALI SOTO [facility] Start: 04-23-2017 Ambulatory CALLI ROSA [facility] Procedures Date Procedure Procedure Detail Performing Clinician Start: 03-17-2025 Ecg routine ecg w/le ast 12 lds trcg only w/o i&r Alba Marcano MD Work Phone: Start: 03-17-2025 Basic metabolic pane l calcium total Alba Marcano MD Work Phone: Start: 12-16-2024 Esophagoscp rig riley soral hypopharynx crv esoph Bib Restrepo PA-C Work Phone: Start: 12-16-2024 Gluc bld gluc mntr d ev cleared fda spec home use Malinda Nicholas APRN.ADDICTION NURSE Work Phone: Start: 11-10-2024 Mammography Stephen Killian MD Work Phone: Start: 10-22-2024 Creatinine other source Esteban GRIFFITHS-C Work Phone: Start: 10-22-2024 Hemoglobin A1c/Hemoglobin.total in Blood Esteban GRIFFITHS-C Work Phone: Start: 10-22-2024 Urnls dip stick/tabl et rgnt auto w/o microscopy Esteban GRIFFITHS-C Work Phone: Start: 10-22-2024 History of placement of stent for coronary artery disease History of heart artery stent Esteban GRIFFITHS-C Work Phone: Start: 10-22-2024 Adult depression screening assessment Daina Dewey RD Start: 08-14-2024 Radex shoulder compl ete minimum 2 views Antonio Villalba APRN BANK CREDIT CARD COLLECTION CLERK Work Phone: Start: 08-14-2024 Ct cervical spine w/ o contrast material Antonio Villalba APRN BANK CREDIT CARD COLLECTION CLERK Work Phone: Start: 03-05-2024 Adult depression screening assessment Ralph Gibson DO Work Phone: Start: 11-07-2023 End: 11-07-2023 Screening mammography bi 2-view breast inc cad Ralph Paige DO Work Phone: Start: 09-30-2023 Gluc bld gluc mntr d ev cleared fda spec home use Unlisted Provider Start: 09-29-2023 Radiologic exam ches t 2 views Cindy Barajas APRN BANK CREDIT CARD COLLECTION CLERK Work Phone: Start: 09-29-2023 SARS-COV-2, FLU A, F LEONA B, RSV (PCR) PANEL Linden Marie MD Work Phone: Start: 09-27-2023 Us abdominal real ti me w/image limited Fernando Diaz MD Work Phone: Start: 09-23-2023 Ct abdomen & pelvis w/contrast material Santo Elam MD Work Phone: Start: 09-23-2023 Comprehensive metabo lic panel Santo Elam MD Work Phone: Start: 08-13-2023 Plain chest X-ray Start: 08-02-2023 Assay of troponin quantitative Derrick Esquivel DO Work Phone: Start: 08-02-2023 Radiologic exam ches t single view Derrick Esquivel DO Work Phone: Start: 08-02-2023 Ecg routine ecg w/le ast 12 lds trcg only w/o i&r Derrick Esquivel DO Work Phone: Start: 08-02-2023 Comprehensive metabo lic panel Derrick Esquivel DO Work Phone: Start: 08-02-2023 PERIPHERAL SMEAR REVIEW Derrick Esquivel DO Work Phone: Start: 07-02-2023 Radex hand minimum 3 views Ralph Paige DO Work Phone: Start: 07-02-2023 Lipid 1996 panel - S clementine or Plasma Derrick Manriquez MD Work Phone: Start: 12-23-2022 Plain chest X-ray Start: 12-09-2022 Plain chest X-ray Start: 07-21-2022 Esophagoscp rig riley soral hypopharynx crv gianna Palafox MD Work Phone: Start: 04-16-2022 Radex shoulder compl ete minimum 2 views Mayra Jeevan Carlsontle IN FLIGHT TECHNICIAN BANK CREDIT CARD COLLECTION CLERK Work Phone: Start: 04-16-2022 Ct cervical spine w/ o contrast material Mayra Jeevan Carlsondeyanira IN FLIGHT TECHNICIAN BANK CREDIT CARD COLLECTION CLERK Work Phone: Start: 04-04-2022 End: 04-04-2022 Screening mammography bi 2-view breast inc cad Ralph Gibson DO Work Phone: Start: 03-13-2022 SARS-CoV-2 & FLU Ant igen (Rapid) Start: 03-13-2022 Plain chest X-ray Start: 01-13-2022 CBC W Auto Different ial panel - Blood Ralph Gibson DO Work Phone: Start: 01-13-2022 Comprehensive metabo lic panel Ralph Gibson DO Work Phone: Start: 01-13-2022 GLOMERULAR FILTRATIO N RATE Ralph Gibson DO Work Phone: Start: 06-30-2021 CBC W Auto Different ial panel - Blood Ralph Gibson DO Work Phone: Start: 06-30-2021 Comprehensive metabo lic panel Ralph Gibson DO Work Phone: Start: 06-30-2021 GLOMERULAR FILTRATIO N RATE Ralph Gibson DO Work Phone: Start: 06-30-2021 Lipid panel Ralph price DO Work Phone: Start: 04-19-2021 Us abdominal real ti me w/image limited Ralph Gibson DO Work Phone: Start: 04-19-2020 History of placement of stent for coronary artery disease History of coronary artery stent placement Layla GRIFFITHS Comment on above: PCI-SHANI-Mid LAD w/ 2 .25 x 16 mm Synergy Stent 04/19/2020; PCI-SHANI-Mid LAD distal from previous stent w/ 2.25 x 12 mm and a 2.25 x 8 mm Synergy 04/19/2020 Start: 06-03-2015 Mammography Ralph price DO Work Phone: Plan of Treatment Date Care Activity Detail Author Start: 04-24-2030 Screening for malignant neoplasm of colon [facility] Start: 04-23-2030 Screening for malignant neoplasm of colon [facility] Start: 03-06-2030 Screening for malignant neoplasm of colon [facility] Start: 07-02-2028 Lipid panel Lipid Screening [facility] Start: 12-17-2027 Esophagogastroduodenoscopy ESOPHAGOGASTRODUODENOSCOPY (EGD) [facility] Start: 11-02-2026 Diabetes Screening Diabetes Screening [facility] Start: 06-30-2026 LIPID SCREEN LIPID SCREEN [facility] Start: 11-10-2025 Screening for malignant neoplasm of breast [facility] Start: 10-22-2025 Annual PCP Team Chronic Disease Visit Annual PCP Team Chronic Disease Visit [facility] Start: 10-22-2025 Anxiety Screening Anxiety Screening [facility] Start: 10-22-2025 BP Controlled (<130/80) BP Controlled (<130/80) [facility] Start: 10-22-2025 Covid-19 Vaccine ( season) Covid-19 Vaccine () [facility] Comment on above: Postponed from 06/08/2024 (Declined at t his time) Start: 10-22-2025 Depression Screening Depression Screening [facility] Start: 10-22-2025 Hepatitis B screening Urine Albumin:Creatinine Ratio [facility] Start: 10-22-2025 Pneumococcal Vaccine: 50+ (1 of 2 - PCV) Pneumococcal Vaccine: 50+ (1 of 2 - PCV) [facility] Comment on above: Postponed from 1971 (Declined at t his time) Start: 10-22-2025 RSV Vaccine (1 - Risk 60-74 years 1-dose series) RSV Vaccine (1 - Risk 60-74 years 1-dose series) [facility] Comment on above: Postponed from 2012 (Declined at t his time) Start: 10-22-2025 Shingrix Vaccine (1 of 2) Shingrix Vaccine (1 of 2) [facility] Comment on above: Postponed from 2002 (Declined at t his time) Start: 08-13-2025 Administration of diphtheria + tetanus + acellular pertussis vaccine DTAP/TDAP/TD VACCINE (2 - Td or Tdap) [facility] Start: 08-13-2025 Diphtheria + pertussis + tetanus vaccine (product) DTAP/TDAP/TD VACCINE (2 - Td or Tdap) [facility] Start: 08-13-2025 Urine microalbumin profile DTaP,Tdap,Td Vaccine (2 - T d or Tdap) [facility] Start: 07-11-2025 Creatinine measurement CREATININE LEVEL (ANNUAL) [facility] Start: 07-11-2025 GFR (ANNUAL) GFR (ANNUAL) [facility] Start: 07-11-2025 Renal function test NOS RENAL PROFILE [facility] Start: 07-11-2025 Serum potassium measurement HYPERTENSION ANNUAL POTASSIUM [facility] Start: 07-11-2025 Sodium [Moles/volume] in Serum or Plasma SODIUM (ANNUAL) [facility] Start: 06-08-2025 Influenza vaccination given INFLUENZA VACCINE (Season Ended) [facility] Start: 04-21-2025 Hemoglobin A1c measurement HbA1C [facility] Start: 04-21-2025 End: 04-21-2025 Patient encounter procedure 04/21/2025 9:00 AM EDT Office Visit [facility] [address] [place] [address] [address] [place] [address] Esteban Vázquez PA-C [address] [address] [place] [address] 6 months wellness and labs [facility] Comment on above: 6 months wellness and labs Start: 04-07-2025 Hepatitis B surface antibody level LDL Cholesterol [facility] Comment on above: Postponed from 1970 (Declined at t his time) Start: 04-07-2025 Hepatitis C screening Hepatitis C Screening [facility] Comment on above: Postponed from 1970 (Declined at t his time) Start: 04-06-2025 Influenza vaccination Influenza Vaccine (#1) [facility] Comment on above: Postponed from 06/08/2024 (Declined at t his time) Start: 03-06-2025 ANNUAL WELLNESS VISIT ANNUAL WELLNESS VISIT [facility] Start: 03-05-2025 Depression screening using PHQ-9 (Patient Health Questionnaire 9) score DEPRESSION SCREENING [facility] Start: 03-05-2025 Fall risk assessment FALL RISK [facility] Start: 01-21-2025 End: 01-21-2025 Esophagogastroduodenoscopy transoral diagnostic ESOPHAGOGASTRODUODENOSCOPY hiatal hernia 36-39 cm, Barretts 34-36 cm, 30 cm 24 cm esophogeal strictures 01/21/2025 7:35 PM EDT [facility] Start: 01-09-2025 Hemoglobin A1c measurement HbA1C [facility] Start: 12-16-2024 End: 12-16-2024 Patient encounter procedure 12/16/2024 8:15 AM EDT Appointment [facility] [address] [place], [place] [id number] Alexis Draper MD [address] [place] [address] ARRIVAL TIME HAS BEEN GIVEN. [facility] Comment on above: ARRIVAL TIME HAS BEEN GIVEN. Start: 12-04-2024 End: 12-04-2024 Follow-up encounter 12/04/2024 11:00 AM EST Education Nutrition Therapy [address] [facility] [address] [place] [address] Daina Dewey, RD [address] [place] [address] follow up Nutrition Therapy Comment on above: follow up Start: 11-11-2024 End: 11-11-2024 Patient encounter procedure 11/11/2024 10:15 AM EST Office Visit [facility] [address] [place] [address] Bib Restrepo PA-C [address] [place] [address] [address] [place], [place] [id number] Fatima's esophagus without dysplasia [K22.70]; Dysphagia, unspecified type [R13.10] [facility] [[email or web address] Comment on above: Fatima's esophagus without dysplasia [K 22.70]; Dysphagia, unspecified type [R13.10] Start: 11-10-2024 End: 11-10-2024 Patient encounter procedure [facility] Comment on above: Fatima's esophagus without dysplasia [K 22.70]; Dysphagia, unspecified type [R13.10] Encounter for screen ing mammogram for breast cancer [Z12.31] Start: 11-07-2024 Screening for malignant neoplasm of breast [facility] Start: 10-31-2024 End: 10-31-2024 Nutrition therapy 10/31/2024 11:00 AM EST [facility] Nutrition Therapy [address] [address] Daina Dewey, RD [address] [place] [address] What foods to eat for diabetics and fatima's esop Nutrition Therapy Comment on above: What foods to eat for diabetics and fernandes ett's esop Start: 10-22-2024 Depression Screening Depression Screening [facility] Comment on above: Postponed from 1970 (Declined at t his time) Start: 10-13-2024 End: 10-13-2024 Patient encounter procedure 10/13/2024 2:00 PM EST Office Visit [address] [address] Ralph Gibson DO [address] [place] [address] [facility] Start: 10-11-2024 Hemoglobin A1c measurement DIABETES: HEMOGLOBIN A1C [facility] Start: 07-29-2024 End: 07-29-2024 Patient encounter procedure 07/29/2024 8:00 AM EDT Appointment Gastroenterology [address] [address] Derrick Manriquez MD [address] [address] EGD [facility] Comment on above: EGD [facility] Start: 07-17-2024 End: 07-17-2024 Patient encounter procedure 07/17/2024 2:00 PM EDT Appointment Gastroenterology [address] [address] Derrick Manriquez MD [address] [address] Fatima's esophagus with low grade dysplasia [K22.710]Gastroesophageal reflux disease without esophagitis [K21.9 Gastroenterology Comment on above: Fatima's esophagus with low grade dyspl caitlyn [K22.710]Gastroesophageal reflux disease without esophagitis [K21.9 Start: 07-11-2024 End: 07-11-2024 Anesthesia consultation 07/11/2024 11:20 AM EDT PAT Pre Anesthesia [address] [facility] [address] [place] [address] pre procedure Pre Anesthesia Comment on above: pre procedure Start: 07-02-2024 Lipid panel LIPID PANEL [facility] Start: 06-08-2024 Covid-19 Vaccine ( season) Covid-19 Vaccine ( season) [facility] Start: 06-08-2024 Covid-19 Vaccine ( season) Covid-19 Vaccine ( season) [facility] Start: 06-08-2024 Influenza vaccination Influ[facility] Start: 06-08-2024 Influenza vaccination given INFLUENZA VACCINE (#1) [facility] Start: 03-05-2024 End: 03-05-2024 Patient encounter procedure 03/05/2024 10:15 AM EDT Office Visit [facility] [address] [place] [address] Ralph Gibson DO [address] [place] [address] [facility] Start: 11-02-2023 End: 11-02-2023 Patient encounter procedure 11/02/2023 9:45 AM EST Office Visit [facility] [address] [place] [address] Ralph Gibson DO [address] [place] [address] [facility] Start: 10-17-2023 End: 10-17-2023 Patient encounter procedure 10/17/2023 10:00 AM EST Appointment [facility] [address] [place] [address] [place] [address] [place] [address] [place] [address] [facility] Start: 10-08-2023 Advance Directive Discussion Advance Directive Discussion [facility] Start: 09-28-2023 End: 09-28-2023 Patient encounter procedure 09/28/2023 10:45 AM EST Office Visit [facility] [address] [place] [address] Suzy James MD [address] [place] [address] [facility] Start: 08-13-2023 Blood chemistry [facility] Start: 08-13-2023 End: 08-13-2023 [facility] Start: 06-08-2023 COVID-19 VACCINE ( season) COVID-19 VACCINE ( season) [facility] Start: 06-08-2023 Influenza vaccination given INFLUENZA VACCINE (#1) [facility] Start: 04-04-2023 Mammography MAMMOGRAM [facility] Start: 04-04-2023 Screening for malignant neoplasm of breast MAMMOGRAM [facility] Start: 04-04-2023 Screening mammography MAMMOGRAM [facility] Start: 02-21-2023 End: 02-21-2023 Patient encounter procedure 02/21/2023 Office Visit Family Medicine Ralph Gibson DO [address] [place] [address] [facility] Start: 12-23-2022 Blood chemistry [facility] Start: 12-23-2022 End: 12-23-2022 [facility] Start: 12-23-2022 Electrocardiographic procedure [facility] Start: 12-09-2022 Viral nucleic acid assay [facility] Start: 12-09-2022 End: 12-09-2022 [facility] Start: 10-11-2022 Screening for malignant neoplasm of colon [facility] Start: 10-08-2022 ADVANCE DIRECTIVE DISCUSSION ADVANCE DIRECTIVE DISCUSSION [facility] Start: 10-08-2022 DEPRESSION ASSESSMENT DEPRESSION ASSESSMENT [facility] Start: 06-08-2022 Influenza vaccination INFLUENZA (#1) [facility] Start: 06-08-2022 Influenza vaccination given [facility] Start: 05-31-2022 End: 05-31-2022 Patient encounter procedure 05/31/2022 Office Visit Family Medicine Ralph Gibson DO [address] [place] [address] [facility] Start: 05-23-2022 End: 05-23-2022 Admission to same day surgery center 05/23/2022 Surgery Suzy James MD [address] [place] [address] ESOPHAGOGASTRODUODENOSCOPY [facility] Comment on above: ESOPHAGOGASTRODUODENOSCOPY Start: 05-23-2022 Subsequent hospital visit by physician 05/23/2022 Hospital Encounter Suzy James MD [address] [place] [address] GERD (gastroesophageal reflux disease) [facility] Comment on above: GERD (gastroesophageal reflux disease) Start: 05-23-2022 End: 05-23-2022 Esophagogastroduodenoscopy ENDOSCOPY Start: 04-19-2022 End: 04-19-2022 Patient encounter procedure 04/19/2022 Office Visit [facility] DionyRalph price, DO [address] [place] [address] [facility] Start: 04-14-2022 End: 04-14-2022 Patient encounter procedure 04/14/2022 Office Visit [facility] BeccaRalph moon, DO [address] [place] [address] [facility] Start: 03-13-2022 Bacteria identified in Urine by Culture Urine Culture [facility] Work Phone: Start: 10-08-2021 ADVANCE DIRECTIVE DISCUSSION ADVANCE DIRECTIVE DISCUSSION [facility] Start: 10-08-2021 DEPRESSION ASSESSMENT DEPRESSION ASSESSMENT [facility] Start: 06-08-2021 Influenza vaccination given INFLUENZA VACCINE (#1) [facility] Start: 06-01-2021 COVID-19 VACCINE (3 - Booster for Moderna series) COVID-19 VACCINE (3 - Booster for Moderna series) [facility] Start: 02-24-2021 COVID-19 VACCINE (3 - Booster for Moderna series) COVID-19 VACCINE (3 - Booster for Moderna series) [facility] Start: 02-24-2021 COVID-19 VACCINE (3 - Moderna series) COVID-19 VACCINE (3 - Moderna series) [facility] Start: 2017 BONE DENSITY BONE DENSITY [facility] Start: 2017 Fall risk assessment FALL RISK [facility] Start: 2017 Glaucoma screening GLAUCOMA/EYE EXAM AGE 65+ [facility] Start: 2017 Osteoporosis risk assessment done BONE DENSITY SCREENING [facility] Start: 2017 Pneumococcal 23-valent polysaccharide vaccination given (situation) [facility] Start: 2017 Pneumococcal polysaccharide vaccine (product) PNEUMONIA VACCINE (PCV13 PPSV23) (1 of 2 - PCV13) [facility] Start: 2017 Pneumococcal Vaccine: 65+ (1 of 1 - PCV) Pneumococcal Vaccine: 65+ (1 of 1 - PCV) [facility] Start: 2017 PNEUMOCOCCAL: 65+ (1 - PCV) PNEUMOCOCCAL: 65+ (1 - PCV) [facility] Start: 2017 Screening for osteoporosis BONE DENSITY SCREENING [facility] Start: 06-01-2017 ANNUAL WELLNESS VISIT ANNUAL WELLNESS VISIT [facility] Start: 06-03-2016 Screening mammography MAMMOGRAM [facility] Start: 2012 RSV Vaccine (1 - 1-dose 60+ series) RSV Vaccine (1 - 1-dose 60+ series) [facility] Start: 2012 RSV Vaccine (1 - Risk 60-74 years 1-dose series) RSV Vaccine (1 - Risk 60-74 years 1-dose series) [facility] Start: 2002 Screening for malignant neoplasm of colon [facility] Start: 2002 SHINGRIX VACCINE (1 of 2) SHINGRIX VACCINE (1 of 2) [facility] Start: 2002 Zoster vaccine hzv live for subcutaneous use ZOSTER (SHINGLES) VACCINE (1 of 2) [facility] Start: 1997 COLOGUARD (FIT-DNA) COLOGUARD (FIT-DNA) [facility] Start: 1997 Colonoscopy COLONOSCOPY [facility] Start: 1997 COLORECTAL CANCER SCREENING COLORECTAL CANCER SCREENING [facility] Start: [address] COLONOGRAPHY [facility] Start: 1997 DIABETES SCREEN DIABETES SCREEN [facility] Start: 1997 FECAL OCCULT BLOOD FECAL OCCULT BLOOD [facility] Start: 1997 Screening for malignant neoplasm of colon [facility] Start: 1997 SIGMOIDOSCOPY SIGMOIDOSCOPY [facility] Start: 1971 Pneumococcal 23-valent polysaccharide vaccination given (situation) PNEUMOCOCCAL VACCINE: 50+ YEARS (1 of 2 - PCV) [facility] Start: 1971 Urine microalbumin profile DTAP,TDAP,TD (1 - Tdap) [facility] Start: 1970 Annual PCP Team Chronic Disease Visit Annual PCP Team Chronic Disease Visit [facility] Start: 1970 Anxiety Screening Anxiety Screening [facility] Start: 1970 BP Controlled (<130/80) BP Controlled (<130/80) [facility] Start: 1970 Depression Screening Depression Screening [facility] Start: 1970 Hepatitis B surface antibody level LDL Cholesterol [facility] Start: 1970 HEPATITIS C SCREENING HEPATITIS C SCREENING [facility] Start: 1970 Hepatitis C screening Hepatitis C Screening [facility] Start: 1964 Depression screening using PHQ-9 (Patient Health Questionnaire 9) score DEPRESSION SCREENING [facility] Start: 1962 Diabetic foot examination Diabetic Foot Exam [facility] Start: 1962 Glaucoma screening [facility] Start: 1962 Hepatitis B screening Urine Albumin:Creatinine Ratio [facility] Start: 1958 Pneumococcal Vaccine: 65+ (1 of 2 - PCV) Pneumococcal Vaccine: 65+ (1 of 2 - PCV) [facility] Start: 1952 Diabetic foot examination DIABETES: FOOT EXAM [facility] Start: 1952 Hepatitis C screening HEPATITIS C SCREENING [facility] Start: 1952 STATIN THERAPY (ASCVD) STATIN THERAPY (ASCVD) [facility] Start: 1952 Urine screening for protein MICROALBUMINURIA [facility] 12 lead ECG EKG 12 lead ECG RUDY 03/17/2025 10:41 PM EDT [facility] End: 09-02-2024 Cardiac stress study Procedure Nuclear Stress Test - Pharmacological Cardiac Services RUDY Chest pain, unspecified type 1 Occurrences starting 08/02/2023 until 09/02/2024 [facility] Comment on above: 1 Occurrences starting 08/02/2023 until 09/02/2024 End: 08-02-2023 [facility] Comment on above: Once for 1 Occurrences starting 08/02/20 until 08/02/2023, 1 completed End: 09-23-2023 [facility] Comment on above: Once for 1 Occurrences starting 09/23/20 until 09/23/2023, 1 completed End: 03-17-2025 [facility] Comment on above: Once for 1 Occurrences starting 03/17/20 until 03/17/2025, 1 completed End: 11-21-2025 DBT Breast - bilateral screening MARY SCREENING W PADMINI Radiology Routine Encounter for screening mammogram for breast cancer 1 Occurrences starting 10/22/2024 until 11/21/2025 [facility] Work Phone: Comment on above: 1 Occurrences starting 10/22/2024 until 11/21/2025 DBT Breast - bilater al screening MARY SCREENING W APDMINI Radiology Routine Encounter for screening mammogram for breast cancer 11/10/2024 11:52 AM EST [facility] Work Phone: End: 06-18-2025 ECG COMPLETE ECG COMPLETE ECG Routine Fatima's esophagus with low grade dysplasia Gastroesophageal reflux disease without esophagitis 1 Occurrences starting 06/18/2024 until 06/18/2025 [facility] Work Phone: Comment on above: 1 Occurrences starting 06/18/2024 until 06/18/2025 End: 07-04-2023 EGD - THERAPEUTIC, EUS, OR TUBE INTERVENTIONS EGD - THERAPEUTIC, EUS, OR TUBE INTERVENTIONS Endoscopy Routine Fatima's esophagus with low grade dysplasia Gastroesophageal reflux disease with esophagitis without hemorrhage 1 Occurrences starting 07/04/2022 until 07/04/2023 [facility] Work Phone: Comment on above: 1 Occurrences starting 07/04/2022 until 07/04/2023 End: 11-18-2025 EGD - THERAPEUTIC, EUS, OR TUBE INTERVENTIONS EGD - THERAPEUTIC, EUS, OR TUBE INTERVENTIONS Endoscopy Routine Fatima's esophagus without dysplasia Dysphagia, unspecified type 1 Occurrences starting 11/18/2024 until 11/18/2025 [facility] Work Phone: Comment on above: 1 Occurrences starting 11/18/2024 until 11/18/2025 End: 06-18-2025 EGD DIAGNOSTIC EGD DIAGNOSTIC Endoscopy Routine Fatima's esophagus with low grade dysplasia Gastroesophageal reflux disease without esophagitis 1 Occurrences starting 06/18/2024 until 06/18/2025 [facility] Comment on above: 1 Occurrences starting 06/18/2024 until 06/18/2025 End: 08-02-2023 [facility] [employer] [facility] Comment on above: Once for 1 Occurrences starting 08/02/20 until 08/02/2023, 1 completed End: 09-23-2023 [facility] [employer] [facility] Comment on above: Once for 1 Occurrences starting 09/23/20 until 09/23/2023, 1 completed End: 03-17-2025 [facility] [employer] [facility] Comment on above: Once for 1 Occurrences starting 03/17/20 until 03/17/2025, 1 completed End: 06-30-2021 Hemoglobin A1c/Hemoglobin.total in Blood [employer] Work Phone: Comment on above: 1 Occurrences starting 06/30/2021 until 06/30/2021 End: 08-02-2023 [employer] Comment on above: Once for 1 Occurrences starting 08/02/20 until 08/02/2023, 1 completed End: 09-23-2023 [employer] Comment on above: Once for 1 Occurrences starting 09/23/20 until 09/23/2023, 1 completed End: 03-17-2025 [employer] Comment on above: Once for 1 Occurrences starting 03/17/20 until 03/17/2025, 1 completed End: 08-02-2023 [employer] Comment on above: Once for 1 Occurrences starting 08/02/20 until 08/02/2023, 1 completed End: 09-23-2023 [employer] Comment on above: Once for 1 Occurrences starting 09/23/20 until 09/23/2023, 1 completed End: 03-17-2025 [employer] Comment on above: Once for 1 Occurrences starting 03/17/20 until 03/17/2025, 1 completed End: 08-02-2023 [facility] Comment on above: Once for 1 Occurrences starting 08/02/20 until 08/02/2023, 1 completed End: 09-23-2023 [facility] Comment on above: Once for 1 Occurrences starting 09/23/20 until 09/23/2023, 1 completed End: 03-17-2025 [facility] Comment on above: Once for 1 Occurrences starting 03/17/20 until 03/17/2025, 1 completed NM Heart Views W str ess and W radionuclide IV [facility] Oxygen Therapy Nasal Cannula; Liters Per Minute: 2.0 LPM; RT may modify oxygen administration per policy: Yes During procedure Oxygen Therapy Nasal Cannula; Liters Per Minute: 2.0 LPM; RT may modify oxygen administration per policy: Yes During procedure Respiratory Care Routine GERD (gastroesophageal reflux disease) Continuous until discontinued starting 05/23/2022 [facility] Comment on above: Continuous until discontinued starting 0 05/23/2022 Patient Education [facility] Work Phone: Patient referral [facility] Work Phone: Peripheral Smear Review Peripher al Smear Review Lab Routine 08/02/2023 until discontinued, 1 completed [facility] Comment on above: 08/02/2023 until discontinued, 1 complet ed End: 05-23-2022 POCT Urine Preg POCT Urine Preg Point of Care Testing Routine GERD (gastroesophageal reflux disease) One Time for 1 Occurrences starting 05/23/2022 until 05/23/2022 [facility] Comment on above: One Time for 1 Occurrences starting 05/08 until 05/23/2022 Pulse oximetry, continuous Pulse oximetry, continuous Respiratory Care Routine GERD (gastroesophageal reflux disease) Continuous until discontinued starting 05/23/2022 [employer] Work Phone: Comment on above: Continuous until discontinued starting 0 05/23/2022 End: 08-02-2023 [employer] Work Phone: Comment on above: One Time for 1 Occurrences starting 07/09 until 08/02/2023 End: 09-23-2023 [employer] Work Phone: Comment on above: One Time for 1 Occurrences starting 09/07 until 09/23/2023 End: 03-17-2025 [employer] Work Phone: Comment on above: One Time for 1 Occurrences starting 03/08 until 03/17/2025 SARS-CoV-2 (COVID-19 ) Ag [Presence] in Respiratory specimen by Rapid immunoassay [facility] SURGICAL PATHOLOGY [facility] Work Phone: Comment on above: Release Upon Ordering for 1 Occurrences starting 07/21/2022, 1 completed End: 05-23-2022 Surgical Pathology Exam Surgical Pathology Exam Pathology and Cytology Routine One Time for 1 Occurrences starting 05/23/2022 until 05/23/2022 [facility] Comment on above: One Time for 1 Occurrences starting 05/08 until 05/23/2022 Tissue Pathology bio psy report [facility] Work Phone: Comment on above: Release Upon Ordering for 1 Occurrences starting 12/16/2024, 1 completed End: 03-18-2025 Troponin I.cardiac [Mass/volume] in Serum or Plasma Troponin I Lab Timed Once for 1 Occurrences starting 03/18/2025 until 03/18/2025 [facility] Comment on above: Once for 1 Occurrences starting 03/18/20 25 until 03/18/2025 End: 09-23-2023 Urinalysis macro (dipstick) panel - Urine Urine Dip Lab RUDY One Time for 1 Occurrences starting 09/23/2023 until 09/23/2023 [facility] Work Phone: Comment on above: One Time for 1 Occurrences starting 09/07 until 09/23/2023 End: 01-12-2023 XR Chest PA and Lateral [facility] Work Phone: Comment on above: 1 Occurrences starting 01/12/2023 until 01/12/2023 [facility] Immunizations Immunization Date Immunization Notes Care Provider [facility] 11-02-2023 influenza, injectabl e, quadrivalent, preservative free Ralph Gibson DO Work Phone: [facility] 11-02-2023 influenza virus vaccine, unspecified formulation Derrick Manriquez MD Work Phone: [facility] 08-11-2020 seasonal influenza, intradermal, preservative free Esteban Vázquez PA-C Work Phone: [facility] 08-13-2015 tetanus toxoid, redu ella diphtheria toxoid, and acellular pertussis vaccine, adsorbed Ralph Gibson DO Work Phone: [facility] Payers Date Payer Category Payer Self-pay [id number] 2017 Medicare [id number] 2017 Medicare [id number]. [id number] 2017 Medicare [id number] 2017 Medicare [id number] 2014 Government (not [employer] or Medicaid) [facility] [id number] 2014 Unknown [id number]. [id number] 2014 Unknown [id number] 1.13.248. [id number] 2014 [facility]--Care provided to Veterans [place] [address] [id number] [id number] 2014 Medicare [id number] 1950 Unknown [id number]. 2.651 1952 Unknown [id number] 2.16.840.1.462398.3.579. 2.297 1952 Unknown [id number] 2.16.840.1.977904.3.579. 2.297 1952 Unknown [id number] 2.16.840.1.975543.3.579. 2.297 1952 Unknown [id number] 2.16.840.1.648405.3.579. 2.297 1952 Unknown [id number] 2.16.840.1.878587.3.579. 2.297 1952 Unknown [id number] 2.16.840.1.998167.3.579. 2.297 1952 Unknown [id number] 2.16840.1.787182.3.579. 2.297 1952 Unknown [id number] 2.840.1.848893.3.579. 2.297 Unknown [id number] Unknown [id number] 2.16840.1.476822.3.579. 2.528 Unknown [id number] 2.16840.1.445071.3.579. 2.462 Unknown [id number] 2.840.1.168934.3.579. 2.462 Unknown [id number] 2.840.1.990636.3.579. 2.462 Unknown [id number] 2.840.1.436789.3.579. 2.462 Unknown [id number] 2.840.1.236026.3.579. 2.462 Unknown [id number] 2.840.1.870555.3.579. 2.462 Social History Date Type Detail Facility Start: 03-23-2021 End: 09-23-2023 Tobacco smoking status MTIS Former smoker [facility] End: 10-08-1977 History of tobacco use Current smoker [facility] Start: 03-23-2021 End: 09-23-2023 Tobacco use and exposure Never used [facility] Start: 03-23-2021 End: 01-22-2025 Alcohol intake Ex-drinker (finding) [facility] Start: 03-23-2020 Alcohol Comment rare [facility] Start: 1950 [facility] Start: 05-13-2022 End: 07-03-2022 Exposure to SARS-CoV-2 (event) Not sure [facility] Start: 03-13-2022 End: 08-13-2023 Tobacco smoking status NHIS Unknown if ever smoked [facility] Start: 09-06-2020 None [facility] Start: 09-06-2020 Spouse/ Signif icant Other [facility] Start: 04-26-2020 Non-smoker [facility] Start: 1950 Sex Assigned At Female W [facility] End: 10-08-1977 History of tobacco use Cigarette Smoker [facility] Start: 07-04-2022 Tobacco smoking status NHIS Never smoked tobacco [facility] Start: 07-04-2022 End: 12-16-2024 Alcohol intake Lifetime non-drinker (finding) [facility] Start: 06-19-2022 End: 01-21-2025 History of Social function [facility] Start: 06-19-2022 End: 01-21-2025 Tobacco use panel [facility] Brief social Pay for mortgage/rent Not on file [facility] Mental Status Date Assessment Result Facility 08-13-2023 Cognitive function Level Of Cons ciousness Awake;Alert;Appropriate [facility] Work Phone: Clinical Notes 04-16-2022 to 03-18-2025 Miranda Douglass, MATTHEW - 03/18/2025 12:33 AM Miranda Crabtree RN - 03/18/2025 12:33 AM Anjana Mckay RN - 03/17/2025 10:35 PM Alba Simpson MD - 03/17/2025 10:34 PM EDTAttachments Note Date & Type Note Facility 03-18-2025 Emergency department Note Pt given discharge paperwork, denies questions or concerns. Pt ambulates out of room 7 without difficulty. [facility] 03-18-2025 Emergency department Note Pt given discharge paperwork, denies questions or concerns. Pt ambulates out of room 7 without difficulty. Pt arrives to ED via private vehicle with c/o HR higher than her normal. Pt states she takes medications that keep her HR in the 50's but that it has been in the 70's today. Pt c/o heart palpitations. Pt denies any chest pain. Pt states intermittent SOB. Pt denies any N/V/D Pt A/Ox3 with PWD skin. Respirs easy, unlabored, in NAD. Images from the original note were not included. [facility] [place] ED Course/Medical Decision Making: Courtney Deng, date of 1950, is a 74 y.o. female with past medical history of HTN, CAD on plavix who presents to the Emergency Department with/for palpitations. Upon arrival patient in no acute distress breathing easily on room air ED Course as of 03/17/25 2331 SunMar 17, 20255 On arrival patient is alert and orient x 3 answering questions appropriately all EXTR spontaneously. Hemodynamically stable and afebrile. Patient notes with palpitations. States this started feeling earlier today. States her heart rate is normally in the 50s and 60s but today she could feel her heart beating with faster. Noticed it was in the 70s. States that is fast for her. Denies any chest pain. Denies recent fevers. States she has been feeling otherwise at her baseline. States she is on atenolol. On exam she is overall appearing. No acute distress. Plan for cardiac workup and reassessment 2245 EKG 12 lead Negative for acute signs of ischemia per my interpretation. Sinus rhythm with rate of 72 2248 White Blood Cells: 7.6 2248 Hgb(!): 11.3 2310 CREATININE(!): 1.21 Mildly increased from baseline of around 1.0. Given L of fluid 2310 MAGNESIUM: 1.7 2313 Troponin I: <0.012 2330 On reassessment patient continues to do well. Given close return precautions. Encouraged to follow up with their PCP and custodial supervisor (patient actually states she has a stress test scheduled next week). Discharged with instructions to return to the ED with any new or worsening symptoms. Patient amenable to plan Differential diagnosis (including but not limited to): ACS, dissection, PE, dysrhythmia, pneumothorax, pneumonia, GERD, pleurisy, viral illness, msk injury IV antibiotics considered but deemed not necessary at this time Medications Given: Medications sodium chloride 0.9% bolus 0.9 % solution 1,000 mL (1,000 mLs Intravenous New Bag 03/17/25 3351) Upon re-examination, the patient looked well and denied any new or worsening symptoms. Patient remained stable throughout the visit. Results were discussed with the patient and family . Patient and family given the opportunity to ask questions. Patient discharged with instructions to return to the emergency department with any new worsening symptoms Patient amenable to plan Admitted to [facility] (order placed in [facility]): No Disposition: DC Chief Complaint: Patient presents with Chief Complaint Patient presents with Palpitations Shortness of Breath SUJATHA Deng, date of 1950, is a 74 y.o. female with past medical history of HTN, CAD on plavix who presents to the Emergency Department with/for palpitations. States that she started feeling earlier today. States her heart rate is normally in the 50s but today she noticed it was in the 70s. States that also I can feel my heart beating faster. Denies any chest pain. Denies any recent fevers. States that she otherwise has felt that her baseline Review of Systems Constitutional: Negative for fever. Respiratory: Negative for shortness of breath. Cardiovascular: Positive for palpitations. Negative for chest pain. Gastrointestinal: Negative for abdominal pain. Genitourinary: Negative for dysuria. All other systems reviewed and are negative. Physical Exam Vitals and nursing note reviewed. Constitutional: General: She is not in acute distress. HENT: Head: Atraumatic. Eyes: Extraocular Movements: Extraocular movements intact. Pupils: Pupils are equal, round, and reactive to light. Cardiovascular: Rate and Rhythm: Normal rate and regular rhythm. Pulmonary: Effort: Pulmonary effort is normal. No respiratory distress. Abdominal: General: There is no distension. Palpations: Abdomen is soft. Tenderness: There is no abdominal tenderness. Musculoskeletal: General: No signs of injury. Neurological: General: No focal deficit present. Mental Status: She is alert and oriented to person, place, and time. Mental status is at baseline. Psychiatric: Mood and Affect: Mood normal. 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 Negative dysplasia 07/21/22, 12/16/24 Vitamin D deficiency 04/14/2016 Past Surgical History: Past Surgical History: Procedure Laterality Date ANKLE FRACTURE SURGERY Left 10/09/1999 CATARACT REMOVAL Bilateral 2015 COLONOSCOPY 2012 [facility] COLONOSCOPY 04/24/2020 [facility]-Lily Robbins MD ESOPHAGOGASTRODUODENOSCOPY WITH BIOPSY N/A 05/23/2022 Suzy James MD ESOPHAGOGASTRODUODENOSCOPY WITH FOREIGN BODY REMOVAL N/A 01/21/2025 ESOPHAGOGASTRODUODENOSCOPY WITH FOREIGN BODY REMOVAL performed by Ruperto Alvarado MD at ENDOSCOPY ESOPHAGOGASTRODUODENOSCOPY WITH SAVARY DILATATION N/A 01/21/2025 ESOPHAGOGASTRODUODENOSCOPY WITH SAVARY DILATATION performed by Ruperto Alvarado MD at ENDOSCOPY LIP BIOPSY TUBAL LIGATION 1985 UPPER GASTROINTESTINAL ENDOSCOPY 07/21/2022 [facility]-Dmitri Akins MD UPPER GASTROINTESTINAL ENDOSCOPY 12/16/2024 [facility]-Alexis Draper MD UPPER GASTROINTESTINAL ENDOSCOPY 04/23/2020 [facility]-Adonay Fofana MD Family History: Family History Problem Relation Age of Onset Heart disease Mother Diabetes Sister Cancer Sister 60 metastatic small cell Cancer Other Cancer Brother 57 metastatic small cell Social History: Social History Socioeconomic History Marital status: Spouse name: Not on file Number of children: Not on file Years of education: Not on file Highest education level: Not on file Occupational History Not on file Tobacco Use Smoking status: Former Current packs/day: 0.00 Types: Cigarettes Quit date: 10/08/1977 Years since quittin.4 Smokeless tobacco: Never Vaping Use Vaping status: Never Used Substance and Sexual Activity Alcohol use: Not Currently Comment: rare Drug use: No Sexual activity: Not on file Other Topics Concern Not on file Social History Narrative Not on file Social Drivers of Health Financial Resource Strain: Not on file Food Insecurity: Not on file Transportation Needs: Not on file Physical Activity: Not on file Stress: Not on file Social Connections: Not on file Intimate Partner Violence: Not on file Housing Stability: Not on file Allergies: Allergies Allergen Reactions Atorvastatin Nausea Only Codeine Nausea And Vomiting Doxycycline Other (See Comments) Stomach felt like it was on fire Metformin Nausea Only Naproxen Nausea And Vomiting Nitrofurantoin Nausea Only Benadryl Allergy Nausea Only High does made her sick to her stomach Review of patient's records reviewed by me during this visit Diagnostics: Labs: Labs Reviewed CBC AND DIFFERENTIAL - Abnormal; Notable for the following components: Result Value Hgb 11.3 (*) MCV 75.8 (*) MCH 22.6 (*) MCHC 29.8 (*) RDW-CV 17.2 (*) Absolute [place] 0.8 (*) All other components within normal limits BASIC METABOLIC PANEL - Abnormal; Notable for the following components: Potassium 3.5 (*) Glucose 178 (*) Creatinine 1.21 (*) EGFR 47.7 (*) All other components within normal limits TROPONIN I SERIES - Normal MAGNESIUM - Normal RAINBOW DRAW Narrative: The following orders were created for panel order and [facility] Draw. Procedure Abnormality Status --------- ------ Light Green Top[[id number]] In process Gold Top[[id number]] In process LIGHT BLUE TOP[[id number]] In process Lavender Top[[id number]] In process Dark Green Top[[id number]] In process Please view results for these tests on the individual orders. LIGHT GREEN TOP GOLD TOP LIGHT BLUE TOP LAVENDER TOP DARK GREEN TOP TROPONIN I Labs reviewed and interpreted by me. Radiology: No orders to display Alba Marcano MD 03/17/25, 11:31 PM [facility] This note was partially generated using [employer] Dictation system, and there may be some incorrect words, spellings, and punctuation that were not noted in checking the note before saving. Alba Marcano MD 03/17/25 2331 documented in this encounter [facility] 03-17-2025 Hospital Discharge instructions Alba Marcano MD - 03/17/2025 11:31 PM EDT Follow up with your primary care doctor. Please return to the Emergency Department for any new or worsening symptoms. documented in this encounter [facility] 03-17-2025 Emergency department Triage note Pt arrives to ED via private vehicle with c/o HR higher than her normal. Pt states she takes medications that keep her HR in the 50's but that it has been in the 70's today. Pt c/o heart palpitations. Pt denies any chest pain. Pt states intermittent SOB. Pt denies any N/V/D Pt A/Ox3 with PWD skin. Respirs easy, unlabored, in NAD. [facility] 03-17-2025 Physician Emergency department Note Images from the original note were not included. [facility] [place] ED Course/Medical Decision Making: Courtney Deng, date of 1950, is a 74 y.o. female with past medical history of HTN, CAD on plavix who presents to the Emergency Department with/for palpitations. Upon arrival patient in no acute distress breathing easily on room air ED Course as of 03/17/25 2331 [facility] Mar 17, 2025 2245 On arrival patient is alert and orient x 3 answering questions appropriately all EXTR spontaneously. Hemodynamically stable and afebrile. Patient notes with palpitations. States this started feeling earlier today. States her heart rate is normally in the 50s and 60s but today she could feel her heart beating with faster. Noticed it was in the 70s. States that is fast for her. Denies any chest pain. Denies recent fevers. States she has been feeling otherwise at her baseline. States she is on atenolol. On exam she is overall appearing. No acute distress. Plan for cardiac workup and reassessment 2245 EKG 12 lead Negative for acute signs of ischemia per my interpretation. Sinus rhythm with rate of 72 2248 White Blood Cells: 7.6 2248 Hgb(!): 11.3 2310 CREATININE(!): 1.21 Mildly increased from baseline of around 1.0. Given L of fluid 2309 MAGNESIUM: 1.7 2313 Troponin I: <0.012 2330 On reassessment patient continues to do well. Given close return precautions. Encouraged to follow up with their PCP and custodial supervisor (patient actually states she has a stress test scheduled next week). Discharged with instructions to return to the ED with any new or worsening symptoms. Patient amenable to plan Differential diagnosis (including but not limited to): ACS, dissection, PE, dysrhythmia, pneumothorax, pneumonia, GERD, pleurisy, viral illness, msk injury IV antibiotics considered but deemed not necessary at this time Medications Given: Medications sodium chloride 0.9% bolus 0.9 % solution 1,000 mL (1,000 mLs Intravenous New Bag 03/17/25 2324) Upon re-examination, the patient looked well and denied any new or worsening symptoms. Patient remained stable throughout the visit. Results were discussed with the patient and family . Patient and family given the opportunity to ask questions. Patient discharged with instructions to return to the emergency department with any new worsening symptoms Patient amenable to plan Admitted to [facility] (order placed in [facility]): No Disposition: DC Chief Complaint: Patient presents with Chief Complaint Patient presents with Palpitations Shortness of Breath SUJATHA Deng, date of 1950, is a 74 y.o. female with past medical history of HTN, CAD on plavix who presents to the Emergency Department with/for palpitations. States that she started feeling earlier today. States her heart rate is normally in the 50s but today she noticed it was in the 70s. States that also I can feel my heart beating faster. Denies any chest pain. Denies any recent fevers. States that she otherwise has felt that her baseline Review of Systems Constitutional: Negative for fever. Respiratory: Negative for shortness of breath. Cardiovascular: Positive for palpitations. Negative for chest pain. Gastrointestinal: Negative for abdominal pain. Genitourinary: Negative for dysuria. All other systems reviewed and are negative. Physical Exam Vitals and nursing note reviewed. Constitutional: General: She is not in acute distress. HENT: Head: Atraumatic. Eyes: Extraocular Movements: Extraocular movements intact. Pupils: Pupils are equal, round, and reactive to light. Cardiovascular: Rate and Rhythm: Normal rate and regular rhythm. Pulmonary: Effort: Pulmonary effort is normal. No respiratory distress. Abdominal: General: There is no distension. Palpations: Abdomen is soft. Tenderness: There is no abdominal tenderness. Musculoskeletal: General: No signs of injury. Neurological: General: No focal deficit present. Mental Status: She is alert and oriented to person, place, and time. Mental status is at baseline. Psychiatric: Mood and Affect: Mood normal. 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 Negative dysplasia 07/21/22, 12/16/24 Vitamin D deficiency 04/14/2016 Past Surgical History: Past Surgical History: Procedure Laterality Date ANKLE FRACTURE SURGERY Left 10/09/1999 CATARACT REMOVAL Bilateral 2015 COLONOSCOPY 2013 [facility] COLONOSCOPY 04/24/2020 [facility]-Lily Robbins MD ESOPHAGOGASTRODUODENOSCOPY WITH BIOPSY N/A 05/23/2022 Suzy James MD ESOPHAGOGASTRODUODENOSCOPY WITH FOREIGN BODY REMOVAL N/A 01/21/2025 ESOPHAGOGASTRODUODENOSCOPY WITH FOREIGN BODY REMOVAL performed by Ruperto Alvarado MD at ENDOSCOPY ESOPHAGOGASTRODUODENOSCOPY WITH SAVARY DILATATION N/A 01/21/2025 ESOPHAGOGASTRODUODENOSCOPY WITH SAVARY DILATATION performed by Ruperto Alvarado MD at ENDOSCOPY LIP BIOPSY TUBAL LIGATION 1985 UPPER GASTROINTESTINAL ENDOSCOPY 07/21/2022 [facility]Dmitri Akins MD UPPER GASTROINTESTINAL ENDOSCOPY 12/16/2024 [facility]-Alexis Draper MD UPPER GASTROINTESTINAL ENDOSCOPY 04/23/2020 [facility]-Adonay Fofana MD Family History: Family History Problem Relation Age of Onset Heart disease Mother Diabetes Sister Cancer Sister 60 metastatic small cell Cancer Other Cancer Brother 57 metastatic small cell Social History: Social History Socioeconomic History Marital status: Spouse name: Not on file Number of children: Not on file Years of education: Not on file Highest education level: Not on file Occupational History Not on file Tobacco Use Smoking status: Former Current packs/day: 0.00 Types: Cigarettes Quit date: 10/08/1977 Years since quittin.4 Smokeless tobacco: Never Vaping Use Vaping status: Never Used Substance and Sexual Activity Alcohol use: Not Currently Comment: rare Drug use: No Sexual activity: Not on file Other Topics Concern Not on file Social History Narrative Not on file Social Drivers of Health Financial Resource Strain: Not on file Food Insecurity: Not on file Transportation Needs: Not on file Physical Activity: Not on file Stress: Not on file Social Connections: Not on file Intimate Partner Violence: Not on file Housing Stability: Not on file Allergies: Allergies Allergen Reactions Atorvastatin Nausea Only Codeine Nausea And Vomiting Doxycycline Other (See Comments) Stomach felt like it was on fire Metformin Nausea Only Naproxen Nausea And Vomiting Nitrofurantoin Nausea Only Benadryl Allergy Nausea Only High does made her sick to her stomach Review of patient's records reviewed by me during this visit Diagnostics: Labs: Labs Reviewed CBC AND DIFFERENTIAL - Abnormal; Notable for the following components: Result Value Hgb 11.3 (*) MCV 75.8 (*) MCH 22.6 (*) MCHC 29.8 (*) RDW-CV 17.2 (*) Absolute [place] 0.8 (*) All other components within normal limits BASIC METABOLIC PANEL - Abnormal; Notable for the following components: Potassium 3.5 (*) Glucose 178 (*) Creatinine 1.21 (*) EGFR 47.7 (*) All other components within normal limits TROPONIN I SERIES - Normal MAGNESIUM - Normal RAINBOW DRAW Narrative: The following orders were created for panel order PC and [facility] Draw. Procedure Abnormality Status --------- ------ Light Green Top[[id number]] In process Gold Top[[id number]] In process LIGHT BLUE TOP[[id number]] In process Lavender Top[[id number]] In process Dark Green Top[[id number]] In process Please view results for these tests on the individual orders. LIGHT GREEN TOP GOLD TOP LIGHT BLUE TOP LAVENDER TOP DARK GREEN TOP TROPONIN I Labs reviewed and interpreted by me. Radiology: No orders to display Alba Marcnao MD 03/17/25, 11:31 PM [facility] This note was partially generated using [employer] system, and there may be some incorrect words, spellings, and punctuation that were not noted in checking the note before saving. Alba Marcano MD 03/17/25 2331 [facility] 01-21-2025 Hospital course Narrative Patient in endoscopy for procedure. Procedure performed without difficulty. See report for findings. Patient sent home after meeting discharge criteria and in good condition. Procedure: Esophagogastroduodenoscopy + Foreign Body Removal + Savary Dilation Complications: None Diagnosis: Meat bolus impaction at 20 cm status post removal. At 24 cm and 30 cm Esophageal Stricture dilated with 15 mm Savary passed over a guidewire with a nice mucosal dilation. Short segment Fatima's 34 cm to 36 cm. Hiatal hernia 36 cm to 39 cm. Follow Up: PRN Ruperto Alvarado MD 01/21/2025 8:14 PM documented in this encounter [facility] 01-21-2025 Hospital Discharge instructions Marisol Dye RN - 01/21/2025 8:13 PM EDT SCOPE DISCHARGE INSTRUCTIONS You have had a procedure called Esophagogastroduodenoscopy (EGD). Sedation: You were given medication for sedation. You may feel drowsy or tired for a few hours. We recommend you not be alone today. Please do not participate in activities that require good coordination or concentration such as driving a car or operating machinery for the next 24 hours. Protect yourself against falls, especially on the stairs or when walking long distances. Delay making business decisions that require the signing of legal documents for a minimum of 24 hours. No alcoholic beverages for 24 hours. Diet: Type of diet ordered Liquid only.. For 24 hours soft diet then a regular diet. You may eat and drink now IV: If the IV site swells or bleeds, please apply direct pressure for 5 minutes. If the site becomes red, you may apply warm, moist compresses to the site. Please see a healthcare professional if you have concerns about your IV site. Pain/Bleeding: You have had a dilatation performed during the procedure. You may expect a little bleeding from the site. Within the next 48 hours, if the bleeding becomes excessive or is accompanied by abdominal or chest pain, please call your physician immediately. If you are on aspirin or NSAIDS (non-steroidal anti-inflammatory drugs) then you can resume 7 days.Tylenol will be okay to take during this time if needed If no appointment is required, your physician will contact you with any test results within 2 weeks and will send a note to your referring physician. If you have any questions, call your physician's office. [phone] I have received and understand my discharge instructions. Date Telecommunications Project Manager documented in this encounter [facility] 01-21-2025 Surgery Surgical operation note ESOPHAGOGASTRODUODENOSCOPY WITH SAVARY DILATATION, ESOPHAGOGASTRODUODENOSCOPY WITH FOREIGN BODY REMOVAL Procedure Note Courtney Deng 01/21/2025 PRE-OP DIAGNOSIS: Acute Esophageal Obstruction POST-OP DIAGNOSIS: Meat bolus impaction at 20 cm status post removal. At 24 cm and 30 cm Esophageal Stricture dilated with 15 mm Savary passed over a guidewire with a nice mucosal dilation. Short segment Fatima's 34 cm to 36 cm. Hiatal hernia 36 cm to 39 cm. PROCEDURE(S): Esophagogastroduodenoscopy + Foreign Body Removal + Savary Dilation SURGEON(S): Ruperto Alvarado MD Sedation Start Time: Event Time Moderate Sedation Start 1944 Endoscope Insertion Time: Event Time Procedure/Incision Start 1950 Endoscope Removal Time: Event Time Procedure End 1999 Consent: Informed consent was obtained prior to the procedure after a thorough explanation of the risks and benefits. The risks include but are not limited to bleeding, infection, allergic reaction to the medication, perforation, risk of sedation, and the risk of missing a small lesion. The patient and family understand, agrees and the consent was signed. Sedation: Patient received conscious sedation medications Versed 4 mg and Fentanyl 100 mcg given intravenously by Ruperto Alvarado MD in incremental doses until sedation achieved. During the time of the procedure the patient was continuously monitored under my direct supervision for 15 minutes.(minutes calculated from Moderate Sedation Start to Out of Room) Vitals: Patient Vitals for the past 12 hrs (Last 1 readings): Temp Pulse Resp BP SpO2 O2 Device 01/21/252005 -- 67 18 136/64 -- -- 01/21/251954 -- 65 29 161/78 98 % Nasal cannula 01/21/25 1950 -- 70 10 180/82 98 % Nasal cannula 01/21/251945 -- 61 29 188/76 98 % Nasal cannula 01/21/251932 98 F (36.7 C) 65 16 185/79 99 % None (Room air) Staff: Game Author: Esteban Casiano MST; Yasemin Villagomez, MATTHEW Sedation Nurse: Marisol Dye RN Documenter: Delmy Rader RN Procedure: The patient was placed in the left lateral decubitus position and sedated in small increments until adequate sedation was achieved. The patient was continually monitored throughout the entire procedure. An Olympus Video gastroscope was inserted into the esophagus under direct vision and advanced to Third portion duodenum. Findings: Esophagus: At 20 cm meat bolus impaction status post removal. I dilated the esophagus. At 24 cm and 30 cm Esophageal Stricture dilated with 15 mm Savary passed over a guidewire with a nice mucosal dilation. Short segment Fatima's 34 cm to 36 cm observed only. Hiatal hernia 36 cm to 39 cm. Stomach: Normal Duodenum: Normal Condition: The patient tolerated the procedure well and was sent to the recovery room in stable condition. Impression: 1. Acute esophageal obstruction. This is secondary to a meat bolus impaction. This has been removed. 2. Esophageal stricture at 24 cm and 30 cm. Both of these have been nicely dilated with a 15 mm savary. No aspirin or nonsteroidals for 2 weeks. Full liquid diet for 24 hours then regular diet. Go to the emergency room if any atypical symptoms such as chest pain, shortness of breath, bleeding, facial swelling etc. 3. Short segment Fatima's 34 cm to 36 cm. Continue pantoprazole 40 mg twice per day. 4. Hiatal hernia 36 cm to 39 cm 5. GERD. Continue pantoprazole 40 mg twice per day. 6. Colon cancer screening. The patient will not require repeat colonoscopy until April 2030. Ruperto Alvarado MD 01/21/2025 8:07 PM [facility] 01-21-2025 Miscellaneous Notes ESOPHAGOGASTRODUODENOSCOPY WITH SAVARY DILATATION, ESOPHAGOGASTRODUODENOSCOPY WITH FOREIGN BODY REMOVAL Procedure Note Courtney Deng 01/21/2025 PRE-OP DIAGNOSIS: Acute Esophageal Obstruction POST-OP DIAGNOSIS: Meat bolus impaction at 20 cm status post removal. At 24 cm and 30 cm Esophageal Stricture dilated with 15 mm Savary passed over a guidewire with a nice mucosal dilation. Short segment Fatima's 34 cm to 36 cm. Hiatal hernia 36 cm to 39 cm. PROCEDURE(S): Esophagogastroduodenoscopy + Foreign Body Removal + Savary Dilation SURGEON(S): Ruperto Alvarado MD Sedation Start Time: Event Time Moderate Sedation Start 1944 Endoscope Insertion Time: Event Time Procedure/Incision Start 1950 Endoscope Removal Time: Event Time Procedure End 1999 Consent: Informed consent was obtained prior to the procedure after a thorough explanation of the risks and benefits. The risks include but are not limited to bleeding, infection, allergic reaction to the medication, perforation, risk of sedation, and the risk of missing a small lesion. The patient and family understand, agrees and the consent was signed. Sedation: Patient received conscious sedation medications Versed 4 mg and Fentanyl 100 mcg given intravenously by Ruperto Alvarado MD in incremental doses until sedation achieved. During the time of the procedure the patient was continuously monitored under my direct supervision for 15 minutes.(minutes calculated from Moderate Sedation Start to Out of Room) Vitals: Patient Vitals for the past 12 hrs (Last 1 readings): Temp Pulse Resp BP SpO2 O2 Device 01/21/252005 -- 18 136/64 -- -- 01/21/251954 -- 65 29 161/78 98 % Nasal cannula 01/21/251949 -- 70 10 180/82 98 % Nasal cannula 01/21/25 1946 -- 61 29 188/76 98 % Nasal cannula 01/21/25 1933 98 F (36.7 C) 65 16 185/79 99 % None (Room air) Staff: Game Author: Esteban Casiano, MST; Yasemin Villagomez, MATTHEW Sedation Nurse: Marisol Dye RN Documenter: Delmy Rader RN Procedure: The patient was placed in the left lateral decubitus position and sedated in small increments until adequate sedation was achieved. The patient was continually monitored throughout the entire procedure. An Olympus Video gastroscope was inserted into the esophagus under direct vision and advanced to Third portion duodenum. Findings: Esophagus: At 20 cm meat bolus impaction status post removal. I dilated the esophagus. At 24 cm and 30 cm Esophageal Stricture dilated with 15 mm Savary passed over a guidewire with a nice mucosal dilation. Short segment Fatima's 34 cm to 36 cm observed only. Hiatal hernia 36 cm to 39 cm. Stomach: Normal Duodenum: Normal Condition: The patient tolerated the procedure well and was sent to the recovery room in stable condition. Impression: 1. Acute esophageal obstruction. This is secondary to a meat bolus impaction. This has been removed. 2. Esophageal stricture at 24 cm and 30 cm. Both of these have been nicely dilated with a 15 mm savary. No aspirin or nonsteroidals for 2 weeks. Full liquid diet for 24 hours then regular diet. Go to the emergency room if any atypical symptoms such as chest pain, shortness of breath, bleeding, facial swelling etc. 3. Short segment Fatima's 34 cm to 36 cm. Continue pantoprazole 40 mg twice per day. 4. Hiatal hernia 36 cm to 39 cm 5. GERD. Continue pantoprazole 40 mg twice per day. 6. Colon cancer screening. The patient will not require repeat colonoscopy until April 2030. Ruperto Alvarado MD 01/21/2025 8:07 PM documented in this encounter [facility] 01-21-2025 History and physical note 01/21/2025 Courtney Deng DATE OF : 1950 PRIMARY CARE PHYSICIAN: Ralph Gibson DO HISTORY: Courtney Deng is a 74 y.o. presents with acute esophageal obstruction. 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 With LGD. Negative dysplasia 07/21/22, 12/16/24), and Vitamin D deficiency (04/14/2016). PAST SURGICAL HISTORY: has a past surgical history that includes TUBAL LIGATION (1985), ESOPHAGOGASTRODUODENOSCOPY WITH BIOPSY (N/A, 05/23/2022) (Suzy James MD), Cataract removal (Bilateral, 2014), Ankle fracture surgery (Left, 10/09/1999), LIP BIOPSY, Upper gastrointestinal endoscopy (07/21/2022) ([facility]Dmitri Akins MD), Upper gastrointestinal endoscopy (12/16/2024) ([facility]-Alexis Draper MD), COLONOSCOPY DIAGNOSTIC (2012) ([facility]), COLONOSCOPY DIAGNOSTIC (04/24/2020) ([facility]-Lily Robbins MD), and Upper gastrointestinal endoscopy (04/23/2020) ([facility]-Adonay Fofana MD). ALLERGY: Allergies Allergen Reactions Atorvastatin Nausea Only Codeine Nausea And Vomiting Doxycycline Other (See Comments) Stomach felt like it was on fire Metformin Nausea Only Naproxen Nausea And Vomiting Nitrofurantoin Nausea Only Benadryl Allergy Nausea Only High does made her sick to her stomach MEDICATION: No current facility-administered medications on file prior to encounter. Current Outpatient Medications on File Prior to Encounter Medication Sig Dispense Refill Acetaminophen (TYLENOL 8 HOUR PO) Take 500 mg by mouth daily. aspirin EC (ECOTRIN LOW STRENGTH) 81 MG EC tablet Take 1 tablet by mouth daily. atenolol (TENORMIN) 100 MG tablet Take 1/2 (one-half) tablet by mouth once daily 90 tablet 1 Biotin 55749 MCG TABS Take by mouth. Calcium Carb-Cholecalciferol (CALCIUM 500 + D PO) Take by mouth daily. clopidogrel (PLAVIX) 75 MG tablet Take 1 tablet by mouth daily. 90 tablet 3 Continuous Glucose Language Asst (DEXCOM G7 WASTEW[employer] ATTENDANT) GRANT 1 Application by Does not apply route 3 times daily. 1 each 0 Continuous Glucose Sensor (DEXCOM G7 SENSOR) MISC 1 Application by Does not apply route 3 times daily as needed. 4 each 3 Continuous Glucose Sensor MISC 1 Application by Does not apply route every 10 days. 9 applicator 3 cyclobenzaprine (FLEXERIL) 10 MG tablet Take 1 tablet by mouth 3 times daily as needed for Muscle spasms. 15 tablet 0 DIPHENHYDRAMINE-ACETAMINOPHEN PO Take by mouth. Dulaglutide (TRULICITY) 0.75 MG/0.5ML SC Pen Inject 0.75 mg into the skin every 7 days. 6 mL 1 Dulaglutide (TRULICITY) 0.75 MG/0.5ML SC Pen Inject 0.75 mg into the skin every 7 days. 6 mL 4 enalapril (VASOTEC) 10 MG tablet Take 1 tablet by mouth daily. 90 tablet 3 ezetimibe (ZETIA) 10 MG tablet Take 1 tablet by mouth daily. 90 tablet 2 [DISCONTINUED] ferrous gluconate (FERGON) 324 (38 Fe) MG tablet Take 1 tablet by mouth 3 times daily (with meals). 90 tablet 5 [DISCONTINUED] fluconazole (DIFLUCAN) 150 MG tablet Take 1 tablet by mouth every 72 hours. 2 tablet 0 furosemide (LASIX) 20 MG tablet Take 1 tablet by mouth once daily 90 tablet 3 glipiZIDE (GLUCOTROL) 5 MG tablet Take 1 tablet by mouth every morning (before breakfast). 90 tablet 3 isosorbide mononitrate (IMDUR) 60 MG 24 hr tablet Take 2 tablets by mouth every morning. 180 tablet 3 Magnesium 500 MG TABS Take by mouth daily. Melatonin 10 MG TABS Take 10 mg by mouth nightly as needed. [DISCONTINUED] methylPREDNISolone (MEDROL DOSEPAK) 4 MG tablet follow package directions 21 tablet 0 nitroGLYCERIN (NITROSTAT) 0.4 MG SL tablet DISSOLVE 1 TABLET EVERY 5-15 MINUTES NEEDED FOR CHEST PAIN; DO NOT EXCEED 3 DOSES PER EPISODE pantoprazole (PROTONIX) 40 MG tablet Take 1 tablet by mouth two times per day. 360 tablet 1 Potassium 95 MG TABS Take 99 mLs by mouth Daily. ranolazine (RANEXA) 500 MG 12 hr tablet Take 1 tablet by mouth two times a day. 180 tablet 3 PE: Visit Vitals BP 185/79 Pulse 65 Temp 98 F (36.7 C) (forehead) Resp 16 Ht 5' 1 (1.549 m) Wt 86.6 kg (191 lb) SpO2 99% BMI 36.09 kg/m GENERAL: Alert and oriented in no acute distress HEENT: Extraocular movements were intact. Pupils equal round reactive. LUNG: Clear to auscultation and percussion. CV: Regular rate and rhythm. ABDOMEN: Soft and nontender NEURO: Grossly intact IMPRESSION: 1. Acute esophageal obstruction PLAN: 1. EGD 2. The risk of the procedure include, but are not limited to bleeding, infection, allergic reaction to the medication, perforation, risk of sedation, and the risk of missing a small lesion. The alternatives were explained to the patient. The patient understands and wants to proceed. Ruperto Alvarado MD 01/21/2025 7:41 PM [facility] 01-21-2025 History and physical note 01/21/2025 Courtney Deng DATE OF : 1950 PRIMARY CARE PHYSICIAN: Ralph Gibson DO HISTORY: Courtney Deng is a 74 y.o. presents with acute esophageal obstruction. 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 With LGD. Negative dysplasia 07/21/22, 12/16/24), and Vitamin D deficiency (04/14/2016). PAST SURGICAL HISTORY: has a past surgical history that includes TUBAL LIGATION (1985), ESOPHAGOGASTRODUODENOSCOPY WITH BIOPSY (N/A, 05/23/2022) (Suzy James MD), Cataract removal (Bilateral, 2014), Ankle fracture surgery (Left, 10/09/1999), LIP BIOPSY, Upper gastrointestinal endoscopy (07/21/2022) ([facility]Dmitri Akins MD), Upper gastrointestinal endoscopy (12/16/2024) ([facility]-Alexis Draper MD), COLONOSCOPY DIAGNOSTIC (2012) ([facility]), COLONOSCOPY DIAGNOSTIC (04/24/2020) ([facility]-Lily Robbins MD), and Upper gastrointestinal endoscopy (04/23/2020) ([facility]-Adonay Fofana MD). ALLERGY: Allergies Allergen Reactions Atorvastatin Nausea Only Codeine Nausea And Vomiting Doxycycline Other (See Comments) Stomach felt like it was on fire Metformin Nausea Only Naproxen Nausea And Vomiting Nitrofurantoin Nausea Only Benadryl Allergy Nausea Only High does made her sick to her stomach MEDICATION: No current facility-administered medications on file prior to encounter. Current Outpatient Medications on File Prior to Encounter Medication Sig Dispense Refill Acetaminophen (TYLENOL 8 HOUR PO) Take 500 mg by mouth daily. aspirin EC (ECOTRIN LOW STRENGTH) 81 MG EC tablet Take 1 tablet by mouth daily. atenolol (TENORMIN) 100 MG tablet Take 1/2 (one-half) tablet by mouth once daily 90 tablet 1 Biotin 44656 MCG TABS Take by mouth. Calcium Carb-Cholecalciferol (CALCIUM 500 + D PO) Take by mouth daily. clopidogrel (PLAVIX) 75 MG tablet Take 1 tablet by mouth daily. 90 tablet 3 Continuous Glucose Language Asst (DEXCOM G7 WASTEW[employer] ATTENDANT) GRANT 1 Application by Does not apply route 3 times daily. 1 each 0 Continuous Glucose Sensor (DEXCOM G7 SENSOR) MISC 1 Application by Does not apply route 3 times daily as needed. 4 each 3 Continuous Glucose Sensor MISC 1 Application by Does not apply route every 10 days. 9 applicator 3 cyclobenzaprine (FLEXERIL) 10 MG tablet Take 1 tablet by mouth 3 times daily as needed for Muscle spasms. 15 tablet 0 DIPHENHYDRAMINE-ACETAMINOPHEN PO Take by mouth. Dulaglutide (TRULICITY) 0.75 MG/0.5ML SC Pen Inject 0.75 mg into the skin every 7 days. 6 mL 1 Dulaglutide (TRULICITY) 0.75 MG/0.5ML SC Pen Inject 0.75 mg into the skin every 7 days. 6 mL 4 enalapril (VASOTEC) 10 MG tablet Take 1 tablet by mouth daily. 90 tablet 3 ezetimibe (ZETIA) 10 MG tablet Take 1 tablet by mouth daily. 90 tablet 2 [DISCONTINUED] ferrous gluconate (FERGON) 324 (38 Fe) MG tablet Take 1 tablet by mouth 3 times daily (with meals). 90 tablet 5 [DISCONTINUED] fluconazole (DIFLUCAN) 150 MG tablet Take 1 tablet by mouth every 72 hours. 2 tablet 0 furosemide (LASIX) 20 MG tablet Take 1 tablet by mouth once daily 90 tablet 3 glipiZIDE (GLUCOTROL) 5 MG tablet Take 1 tablet by mouth every morning (before breakfast). 90 tablet 3 isosorbide mononitrate (IMDUR) 60 MG 24 hr tablet Take 2 tablets by mouth every morning. 180 tablet 3 Magnesium 500 MG TABS Take by mouth daily. Melatonin 10 MG TABS Take 10 mg by mouth nightly as needed. [DISCONTINUED] methylPREDNISolone (MEDROL DOSEPAK) 4 MG tablet follow package directions 21 tablet 0 nitroGLYCERIN (NITROSTAT) 0.4 MG SL tablet DISSOLVE 1 TABLET EVERY 5-15 MINUTES NEEDED FOR CHEST PAIN; DO NOT EXCEED 3 DOSES PER EPISODE pantoprazole (PROTONIX) 40 MG tablet Take 1 tablet by mouth two times per day. 360 tablet 1 Potassium 95 MG TABS Take 99 mLs by mouth Daily. ranolazine (RANEXA) 500 MG 12 hr tablet Take 1 tablet by mouth two times a day. 180 tablet 3 PE: Visit Vitals BP 185/79 Pulse 65 Temp 98 F (36.7 C) (forehead) Resp 16 Ht 5' 1 (1.549 m) Wt 86.6 kg (191 lb) SpO2 99% BMI 36.09 kg/m GENERAL: Alert and oriented in no acute distress HEENT: Extraocular movements were intact. Pupils equal round reactive. LUNG: Clear to auscultation and percussion. CV: Regular rate and rhythm. ABDOMEN: Soft and nontender NEURO: Grossly intact IMPRESSION: 1. Acute esophageal obstruction PLAN: 1. EGD 2. The risk of the procedure include, but are not limited to bleeding, infection, allergic reaction to the medication, perforation, risk of sedation, and the risk of missing a small lesion. The alternatives were explained to the patient. The patient understands and wants to proceed. Ruperto Alvarado MD 01/21/2025 7:41 PM documented in this encounter [facility] 01-21-2025 Emergency department Note Pt. To Endo at this time. Consents signed and sent with Pt. [facility] 01-21-2025 Emergency department Note Pt. To Endo at this time. Consents signed and sent with Pt. She was instructed to report to the ER arrival desk @ [facility]. She voiced understanding. Dr killian gave a verbal order to leave the IV inplace & she has a electric pile driver operator to take her to [facility] ED. Checked on Courtney and she is reporting no change. No improvement. ED Diagnosis and Summary 1. Food impaction of esophagus, initial encounter ED Summary Ms. Deng presented to the [facility] ED with food stuck in her esophagus. No relief with glucagon. Ms. Deng will be going to the [facility] ED for GI evaluation. She is going by personal auto. I spoke with the [facility] Negrita ARTHUR RN, and Dr. Regan. Case was discussed with Dr. Alvarado. History Chief Complaint Patient presents with Other Food stuck Patient's medications, allergies, past medical, surgical, social and family histories were reviewed and updated as appropriate. Past Medical History: Diagnosis Date Fatima's esophagus Cancer (HCC) Hypertension Myocardial infarction (HCC) 04/2020 Past Surgical History: Procedure Laterality Date ESOPHAGOGASTRODUODENOSCOPY WITH BIOPSY N/A 05/23/2022 ESOPHAGOGASTRODUODENOSCOPY WITH BIOPSY performed by Suzy James MD at ENDOSCOPY EYE SURGERY 2014 cataract on posterior of both eyes FRACTURE SURGERY Left 10/09/1999 Ankle fx lip biopsy TUBAL LIGATION 1986 Family History Problem Relation Name Age of Onset Heart disease Mother Diabetes Sister Cancer Sister 60 metastatic small cell Cancer Other Cancer Brother 57 metastatic small cell Social History Socioeconomic History Marital status: Tobacco Use Smoking status: Former Current packs/day: 0.00 Types: Cigarettes Quit date: 10/08/1977 Years since quittin.3 Smokeless tobacco: Never Vaping Use Vaping status: Never Used Substance and Sexual Activity Alcohol use: Not Currently Comment: rare Drug use: No No current facility-administered medications for this encounter. Current Outpatient Medications Medication Sig Dispense Refill Acetaminophen (TYLENOL 8 HOUR PO) Take 500 mg by mouth daily. aspirin EC (ECOTRIN LOW STRENGTH) 81 MG EC tablet Take 1 tablet by mouth daily. atenolol (TENORMIN) 100 MG tablet Take 1/2 (one-half) tablet by mouth once daily 90 tablet 1 Biotin 82816 MCG TABS Take by mouth. Calcium Carb-Cholecalciferol (CALCIUM 500 + D PO) Take by mouth daily. clopidogrel (PLAVIX) 75 MG tablet Take 1 tablet by mouth daily. 90 tablet 3 Continuous Glucose Language Asst (DEXCOM G7 WASTEW[employer] ATTENDANT) GRANT 1 Application by Does not apply route 3 times daily. 1 each 0 Continuous Glucose Sensor (DEXCOM G7 SENSOR) MISC 1 Application by Does not apply route 3 times daily as needed. 4 each 3 Continuous Glucose Sensor MISC 1 Application by Does not apply route every 10 days. 9 applicator 3 cyclobenzaprine (FLEXERIL) 10 MG tablet Take 1 tablet by mouth 3 times daily as needed for Muscle spasms. 15 tablet 0 DIPHENHYDRAMINE-ACETAMINOPHEN PO Take by mouth. Dulaglutide (TRULICITY) 0.75 MG/0.5ML SC Pen Inject 0.75 mg into the skin every 7 days. 6 mL 1 Dulaglutide (TRULICITY) 0.75 MG/0.5ML SC Pen Inject 0.75 mg into the skin every 7 days. 6 mL 4 enalapril (VASOTEC) 10 MG tablet Take 1 tablet by mouth daily. 90 tablet 3 ezetimibe (ZETIA) 10 MG tablet Take 1 tablet by mouth daily. 90 tablet 2 ferrous gluconate (FERGON) 324 (38 Fe) MG tablet Take 1 tablet by mouth 3 times daily (with meals). 90 tablet 5 fluconazole (DIFLUCAN) 150 MG tablet Take 1 tablet by mouth every 72 hours. 2 tablet 0 furosemide (LASIX) 20 MG tablet Take 1 tablet by mouth once daily 90 tablet 3 glipiZIDE (GLUCOTROL) 5 MG tablet Take 1 tablet by mouth every morning (before breakfast). 90 tablet 3 isosorbide mononitrate (IMDUR) 60 MG 24 hr tablet Take 2 tablets by mouth every morning. 180 tablet 3 Magnesium 500 MG TABS Take by mouth daily. Melatonin 10 MG TABS Take 10 mg by mouth nightly as needed. methylPREDNISolone (MEDROL DOSEPAK) 4 MG tablet follow package directions 21 tablet 0 nitroGLYCERIN (NITROSTAT) 0.4 MG SL tablet DISSOLVE 1 TABLET EVERY 5-15 MINUTES NEEDED FOR CHEST PAIN; DO NOT EXCEED 3 DOSES PER EPISODE pantoprazole (PROTONIX) 40 MG tablet Take 1 tablet by mouth two times per day. 360 tablet 1 Potassium 95 MG TABS Take 99 mLs by mouth Daily. ranolazine (RANEXA) 500 MG 12 hr tablet Take 1 tablet by mouth two times a day. 180 tablet 3 Allergies Allergen Reactions Atorvastatin Nausea Only Codeine Nausea And Vomiting Doxycycline Other (See Comments) Stomach felt like it was on fire Metformin Nausea Only Naproxen Nausea And Vomiting Nitrofurantoin Nausea Only Benadryl Allergy Nausea Only High does made her sick to her stomach Courtney Deng 74 y.o. female presents to the [facility] ED with food (potatoes and pork chop) stuck in her throat. Symptoms began shortly prior to ED arrival. She reports she has gotten food stuck before but it usually passes within a few minutes. Ms. Deng had an EGD with Dr. James in 2021 which showed reflux esophagitis, a small-moderate size type 3 paraesophageal hernia, gastric polyps, and mild duodenitis. The history is provided by the patient and medical records. Review of Systems HENT: Positive for trouble swallowing. Physical Exam ED Triage Vitals [01/21/25 1642] BP 177/76 Heart Rate 72 Resp 24 Temp 97.7 F (36.5 C) Temp src FOREHEAD SpO2 100 % Weight 191 lb (86.6 kg) Height 5' 1 (1.549 m) BMI (Calculated) 36.11 Physical Exam Vitals and nursing note reviewed. Constitutional: Comments: Patient gagging, retching, and spitting into an emesis bag HENT: Head: Normocephalic and atraumatic. Eyes: Extraocular Movements: Extraocular movements intact. Conjunctiva/sclera: Conjunctivae normal. Cardiovascular: Rate and Rhythm: Normal rate and regular rhythm. Pulmonary: Effort: Pulmonary effort is normal. Breath sounds: Normal breath sounds. Musculoskeletal: Cervical back: Normal range of motion and neck supple. Skin: General: Skin is warm and dry. Neurological: General: No focal deficit present. Mental Status: She is alert and oriented to person, place, and time. Psychiatric: Mood and Affect: Mood normal. Behavior: Behavior normal. ED Course Procedures Medical Decision Making Ms. Deng presented to the [facility] ED with food stuck in her esophagus. No relief with glucagon. Ms. Deng will be going to the [facility] ED for GI evaluation. She is going by personal auto. I spoke with the [facility] CC, Negrita CASTRO, and Dr. Regan. Case was discussed with Dr. Alvarado. Problems Addressed: Food impaction of esophagus, initial encounter: acute illness or injury Amount and/or Complexity of Data Reviewed Discussion of management or test interpretation with external provider(s): Discussed with Dr. Alvarado Risk Prescription drug management. Stephen Killian MD 01/21/251824 Pepsi was given and she took a drink and was able to swallow a little bit then it came right back up. Checked on Courtney and she is talking & spitting up. She reports I feel like it is stuck in there. Pt arrives to ED via private with c/o food stuck in her throat. Pt states she was eating pork chops and potatoes. Pt states hx of fatima's esophagus and states she was told she did not need her esophagus stretched that it was a muscle problem. Pt states she has been unable to take a drink because she states it comes right back up. Pt A/Ox3 with PWD skin. Respirs easy, unlabored, in NAD. documented in this encounter [facility] 01-21-2025 Consult note Associated Order (s): IP CONSULT TO GI [facility] Inpatient Consultation 01/21/2025 Courtney Deng DATE OF : 1950 REQUESTING PHYSICIAN: Stephen Killian MD PRIMARY CARE PHYSICIAN: Ralph Gibson DO REASON FOR CONSULTATION: Acute esophageal obstruction. The patient was seen in the emergency room bed #31. HISTORY: Courtney Deng is a 74 y.o. white female who presented to [facility] on January 21, 2025 with acute esophageal obstruction. Gastroenterology was urgently consulted to evaluate this. The patient was sent from the [facility] emergency room to [facility] emergency room. The patient is of average risk for colon cancer. There is nobody in the family with colon cancer, colon polyps, or gastric cancer. The patient believes she had colonoscopy done at [facility] around 2022. I do not have this report. The patient's last EGD was done at the [facility] by Alexis Draper MD on December 16, 2024. The patient had a short segment of Fatima's 34 cm to 36 cm. Biopsies of the esophagus were consistent with Fatima's. There was no dysplasia. The patient states that her problems began around 4:30 PM today when she was eating pork chop and potatoes. A piece of pork seems to be stuck at the suprasternal area. She has been unable to swallow anything since that time. She went to [facility] emergency room to be evaluated. The patient denies any diarrhea but does have chronic diarrhea. She denies any constipation, melena, hematochezia. The patient states that she has had a long history of dysphagia to solids for the past couple months. She was told by her physicians at the [facility] that there was no stricture to be dilated. The patient denies any GERD. The patient does take chronic pantoprazole 40 mg twice daily for her short segment of Fatima's. REVIEW OF SYSTEMS: She denies any fever, chills, sweats, fatigue, or loss of appetite. She denies any blurred vision, double vision, or light sensitivity. She denies any hearing loss or tinnitus. She denies any hoarseness, nosebleeds, or sore throat. She denies any chest pain or palpitations. She denies any coughing, or sputum. She admits to shortness of breath. She denies any burning when they urinate, blood in their urine, or urinary incontinence. She denies any dizziness, headaches, weakness, or numbness. She denies any dry skin, itching, rashes, or jaundice. She denies any back pain, joint pain, or muscle pain. She denies any heat or cold intolerance, or hair loss. She denies any bruising, or prolonged bleeding. She denies any environmental allergies, or recurrent infections. 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 With LGD. Negative dysplasia 07/21/22, 12/16/24), and Vitamin D deficiency (04/14/2016). PAST SURGICAL HISTORY: has a past surgical history that includes TUBAL LIGATION (1985), ESOPHAGOGASTRODUODENOSCOPY WITH BIOPSY (N/A, 05/23/2022) (Suzy James MD), Cataract removal (Bilateral, 2014), Ankle fracture surgery (Left, 10/09/1999), LIP BIOPSY, Upper gastrointestinal endoscopy (07/21/2022) ([facility]-Dmitri Akins MD), Upper gastrointestinal endoscopy (12/16/2024) ([facility]-lAexis Draper MD), COLONOSCOPY DIAGNOSTIC (2012) ([facility]), COLONOSCOPY DIAGNOSTIC (04/24/2020) ([facility]-Lily Robbins MD), and Upper gastrointestinal endoscopy (04/23/2020) ([facility]-Adonay Fofana MD). ALLERGY: Allergies Allergen Reactions Atorvastatin Nausea Only Codeine Nausea And Vomiting Doxycycline Other (See Comments) Stomach felt like it was on fire Metformin Nausea Only Naproxen Nausea And Vomiting Nitrofurantoin Nausea Only Benadryl Allergy Nausea Only High does made her sick to her stomach MEDICATIONS: Outpatient Medications Marked as Taking for the 01/21/25 encounter (Hospital Encounter) Medication Sig Dispense Refill Acetaminophen (TYLENOL 8 HOUR PO) Take 500 mg by mouth daily. aspirin EC (ECOTRIN LOW STRENGTH) 81 MG EC tablet Take 1 tablet by mouth daily. atenolol (TENORMIN) 100 MG tablet Take 1/2 (one-half) tablet by mouth once daily 90 tablet 1 Biotin 14703 MCG TABS Take by mouth. Calcium Carb-Cholecalciferol (CALCIUM 500 + D PO) Take by mouth daily. clopidogrel (PLAVIX) 75 MG tablet Take 1 tablet by mouth daily. 90 tablet 3 Continuous Glucose Language Asst (DEXCOM G7 WASTEW[employer] ATTENDANT) GRANT 1 Application by Does not apply route 3 times daily. 1 each 0 Dulaglutide (TRULICITY) 0.75 MG/0.5ML SC Pen Inject 0.75 mg into the skin every 7 days. 6 mL 4 enalapril (VASOTEC) 10 MG tablet Take 1 tablet by mouth daily. 90 tablet 3 ezetimibe (ZETIA) 10 MG tablet Take 1 tablet by mouth daily. 90 tablet 2 furosemide (LASIX) 20 MG tablet Take 1 tablet by mouth once daily 90 tablet 3 glipiZIDE (GLUCOTROL) 5 MG tablet Take 1 tablet by mouth every morning (before breakfast). 90 tablet 3 isosorbide mononitrate (IMDUR) 60 MG 24 hr tablet Take 2 tablets by mouth every morning. 180 tablet 3 Magnesium 500 MG TABS Take by mouth daily. pantoprazole (PROTONIX) 40 MG tablet Take 1 tablet by mouth two times per day. 360 tablet 1 Potassium 95 MG TABS Take 99 mLs by mouth Daily. ranolazine (RANEXA) 500 MG 12 hr tablet Take 1 tablet by mouth two times a day. 180 tablet 3 No current facility-administered medications for this encounter. SOCIAL HISTORY: reports that she quit smoking about 47 years ago. Her smoking use included cigarettes. She has never used smokeless tobacco. She reports that she does not currently use alcohol. She reports that she does not use drugs. FAMILY HISTORY: family history includes Cancer in an other family member; Cancer (age of onset: 57) in her brother; Cancer (age of onset: 60) in her sister; Diabetes in her sister; Heart disease in her mother. PHYSICAL EXAM: Visit Vitals BP 185/79 Pulse 65 Temp 98 F (36.7 C) (forehead) Resp 16 Ht 5' 1 (1.549 m) Wt 86.6 kg (191 lb) SpO2 99% BMI 36.09 kg/m Psychiatric: Alert and oriented in no acute distress. Head: Normocephalic. No abnormalities Eyes: Extraocular movements were intact. Pupils equal round reactive. Nonicteric. Ears: Normal external ears. Nose: Nares normal. Mucosa normal. Throat: Normal mucosa. Teeth normal. Tongue normal. Neck: Supple. Trachea midline. No thyroid abnormalities. Lung: Clear to auscultation and percussion. Cardiovascular: Regular rate and rhythm. Abdomen: Bowel sounds present. Soft and nontender. Musculoskeletal: Moves all extremities. No cyanosis or clubbing. Circulatory: Good peripheral pulses in all extremities. No edema noted. Lymphatic: No submandibular, axillary, or inguinal adenopathy noted. Neurologic: Cranial nerves were grossly intact. No deficits noted. Skin: Warm and moist. Labs: Lab Results Component Value Date WHITEBLOODCE 7.0 07/11/2024 HGB 13.9 07/11/2024 HCT 45.7 07/11/2024 MCV 82.0 07/11/2024 PLT 301 07/11/2024 NA 136 07/11/2024 K 4.3 07/11/2024 CL 103 07/11/2024 CREATININE 1.02 07/11/2024 BUN 14 07/11/2024 CO2 29 07/11/2024 Lab Results Component Value Date ALT 17 07/11/2024 AST 25 07/11/2024 ALKPHOS 65 07/11/2024 BILITOT 0.8 07/11/2024 LABALBU 4.3 07/11/2024 PROT 7.1 07/11/2024 Lipase Date Value Ref Range Status 09/23/2023 73 23 - 300 U/L Final IMPRESSION: 1. Acute esophageal obstruction. I suspect a meat bolus impaction. The patient may have an underlying stricture. 2. Short segment Fatima's 34 cm to 36 cm 3. GERD 4. History of myocardial infarction 5. Hypertension 6. Hyperlipidemia 7. Diabetes 8. Coronary artery disease PLAN: 1. Esophagogastroduodenoscopy was explained to the patient. This procedure will be done urgently tonight. If there is no significant esophagitis, I will dilate the patient's esophagus as well. 2. The risk of the procedure include, but are not limited to bleeding, infection, allergic reaction to the medication, perforation, risk of sedation, and the risk of missing a small lesion. The alternatives were explained to the patient. The patient understands and wants to proceed with the procedures. 3. We will adjust medications appropriately. 4. The patient is advised to avoid aspirin and nonsteroidals prior to the test. 5. The patient will be kept n.p.o. until the procedure. 6. The patient will restart the pantoprazole 40 mg twice per day. The above has been discussed with the patient, nursing staff as well as Stephen Killian MD from the emergency room. Thank you for allowing me to see this very interesting patient. Sincerely, Ruperto Alvarado MD 01/21/2025 7:41 PM [facility] 01-21-2025 Consult note Associated Order (s): IP CONSULT TO GI [facility] Inpatient Consultation 01/21/2025 Courtney Deng DATE OF : 1950 REQUESTING PHYSICIAN: Stephen Killian MD PRIMARY CARE PHYSICIAN: Ralph Gibson DO REASON FOR CONSULTATION: Acute esophageal obstruction. The patient was seen in the emergency room bed #31. HISTORY: Courtney Deng is a 74 y.o. white female who presented to [facility] on January 21, 2025 with acute esophageal obstruction. Gastroenterology was urgently consulted to evaluate this. The patient was sent from the [facility] emergency room to [facility] emergency room. The patient is of average risk for colon cancer. There is nobody in the family with colon cancer, colon polyps, or gastric cancer. The patient believes she had colonoscopy done at [facility] around 2022. I do not have this report. The patient's last EGD was done at the [facility] by Alexis Draper MD on December 16, 2024. The patient had a short segment of Fatima's 34 cm to 36 cm. Biopsies of the esophagus were consistent with Fatima's. There was no dysplasia. The patient states that her problems began around 4:30 PM today when she was eating pork chop and potatoes. A piece of pork seems to be stuck at the suprasternal area. She has been unable to swallow anything since that time. She went to [facility] emergency room to be evaluated. The patient denies any diarrhea but does have chronic diarrhea. She denies any constipation, melena, hematochezia. The patient states that she has had a long history of dysphagia to solids for the past couple months. She was told by her physicians at the [facility] that there was no stricture to be dilated. The patient denies any GERD. The patient does take chronic pantoprazole 40 mg twice daily for her short segment of Fatima's. REVIEW OF SYSTEMS: She denies any fever, chills, sweats, fatigue, or loss of appetite. She denies any blurred vision, double vision, or light sensitivity. She denies any hearing loss or tinnitus. She denies any hoarseness, nosebleeds, or sore throat. She denies any chest pain or palpitations. She denies any coughing, or sputum. She admits to shortness of breath. She denies any burning when they urinate, blood in their urine, or urinary incontinence. She denies any dizziness, headaches, weakness, or numbness. She denies any dry skin, itching, rashes, or jaundice. She denies any back pain, joint pain, or muscle pain. She denies any heat or cold intolerance, or hair loss. She denies any bruising, or prolonged bleeding. She denies any environmental allergies, or recurrent infections. 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 With LGD. Negative dysplasia 07/21/22, 12/16/24), and Vitamin D deficiency (04/14/2016). PAST SURGICAL HISTORY: has a past surgical history that includes TUBAL LIGATION (1985), ESOPHAGOGASTRODUODENOSCOPY WITH BIOPSY (N/A, 05/23/2022) (Suzy James MD), Cataract removal (Bilateral, 2014), Ankle fracture surgery (Left, 10/09/1999), LIP BIOPSY, Upper gastrointestinal endoscopy (07/21/2022) ([facility]Dmitri Akins MD), Upper gastrointestinal endoscopy (12/16/2024) ([facility]-Alexis Draper MD), COLONOSCOPY DIAGNOSTIC (2012) ([facility]), COLONOSCOPY DIAGNOSTIC (04/24/2020) ([facility]-Lily Robbins MD), and Upper gastrointestinal endoscopy (04/23/2020) ([facility]-Adonay Fofana MD). ALLERGY: Allergies Allergen Reactions Atorvastatin Nausea Only Codeine Nausea And Vomiting Doxycycline Other (See Comments) Stomach felt like it was on fire Metformin Nausea Only Naproxen Nausea And Vomiting Nitrofurantoin Nausea Only Benadryl Allergy Nausea Only High does made her sick to her stomach MEDICATIONS: Outpatient Medications Marked as Taking for the 01/21/25 encounter (Hospital Encounter) Medication Sig Dispense Refill Acetaminophen (TYLENOL 8 HOUR PO) Take 500 mg by mouth daily. aspirin EC (ECOTRIN LOW STRENGTH) 81 MG EC tablet Take 1 tablet by mouth daily. atenolol (TENORMIN) 100 MG tablet Take 1/2 (one-half) tablet by mouth once daily 90 tablet 1 Biotin 73133 MCG TABS Take by mouth. Calcium Carb-Cholecalciferol (CALCIUM 500 + D PO) Take by mouth daily. clopidogrel (PLAVIX) 75 MG tablet Take 1 tablet by mouth daily. 90 tablet 3 Continuous Glucose Language Asst ([employer] G7 [employer] ATTENDANT) GRANT 1 Application by Does not apply route 3 times daily. 1 each 0 Dulaglutide (TRULICITY) 0.75 MG/0.5ML SC Pen Inject 0.75 mg into the skin every 7 days. 6 mL 4 enalapril (VASOTEC) 10 MG tablet Take 1 tablet by mouth daily. 90 tablet 3 ezetimibe (ZETIA) 10 MG tablet Take 1 tablet by mouth daily. 90 tablet 2 furosemide (LASIX) 20 MG tablet Take 1 tablet by mouth once daily 90 tablet 3 glipiZIDE (GLUCOTROL) 5 MG tablet Take 1 tablet by mouth every morning (before breakfast). 90 tablet 3 isosorbide mononitrate (IMDUR) 60 MG 24 hr tablet Take 2 tablets by mouth every morning. 180 tablet 3 Magnesium 500 MG TABS Take by mouth daily. pantoprazole (PROTONIX) 40 MG tablet Take 1 tablet by mouth two times per day. 360 tablet 1 Potassium 95 MG TABS Take 99 mLs by mouth Daily. ranolazine (RANEXA) 500 MG 12 hr tablet Take 1 tablet by mouth two times a day. 180 tablet 3 No current facility-administered medications for this encounter. SOCIAL HISTORY: reports that she quit smoking about 47 years ago. Her smoking use included cigarettes. She has never used smokeless tobacco. She reports that she does not currently use alcohol. She reports that she does not use drugs. FAMILY HISTORY: family history includes Cancer in an other family member; Cancer (age of onset: 57) in her brother; Cancer (age of onset: 60) in her sister; Diabetes in her sister; Heart disease in her mother. PHYSICAL EXAM: Visit Vitals BP 185/79 Pulse 65 Temp 98 F (36.7 C) (forehead) Resp 16 Ht 5' 1 (1.549 m) Wt 86.6 kg (191 lb) SpO2 99% BMI 36.09 kg/m Psychiatric: Alert and oriented in no acute distress. Head: Normocephalic. No abnormalities Eyes: Extraocular movements were intact. Pupils equal round reactive. Nonicteric. Ears: Normal external ears. Nose: Nares normal. Mucosa normal. Throat: Normal mucosa. Teeth normal. Tongue normal. Neck: Supple. Trachea midline. No thyroid abnormalities. Lung: Clear to auscultation and percussion. Cardiovascular: Regular rate and rhythm. Abdomen: Bowel sounds present. Soft and nontender. Musculoskeletal: Moves all extremities. No cyanosis or clubbing. Circulatory: Good peripheral pulses in all extremities. No edema noted. Lymphatic: No submandibular, axillary, or inguinal adenopathy noted. Neurologic: Cranial nerves were grossly intact. No deficits noted. Skin: Warm and moist. Labs: Lab Results Component Value Date WHITEBLOODCE 7.0 07/11/2024 HGB 13.9 07/11/2024 HCT 45.7 07/11/2024 MCV 82.0 07/11/2024 PLT 301 07/11/2024 NA 136 07/11/2024 K 4.3 07/11/2024 CL 103 07/11/2024 CREATININE 1.02 07/11/2024 BUN 14 07/11/2024 CO2 29 07/11/2024 Lab Results Component Value Date ALT 17 07/11/2024 AST 25 07/11/2024 ALKPHOS 65 07/11/2024 BILITOT 0.8 07/11/2024 LABALBU 4.3 07/11/2024 PROT 7.1 07/11/2024 Lipase Date Value Ref Range Status 09/23/2023 73 23 - 300 U/L Final IMPRESSION: 1. Acute esophageal obstruction. I suspect a meat bolus impaction. The patient may have an underlying stricture. 2. Short segment Fatima's 34 cm to 36 cm 3. GERD 4. History of myocardial infarction 5. Hypertension 6. Hyperlipidemia 7. Diabetes 8. Coronary artery disease PLAN: 1. Esophagogastroduodenoscopy was explained to the patient. This procedure will be done urgently tonight. If there is no significant esophagitis, I will dilate the patient's esophagus as well. 2. The risk of the procedure include, but are not limited to bleeding, infection, allergic reaction to the medication, perforation, risk of sedation, and the risk of missing a small lesion. The alternatives were explained to the patient. The patient understands and wants to proceed with the procedures. 3. We will adjust medications appropriately. 4. The patient is advised to avoid aspirin and nonsteroidals prior to the test. 5. The patient will be kept n.p.o. until the procedure. 6. The patient will restart the pantoprazole 40 mg twice per day. The above has been discussed with the patient, nursing staff as well as Stephen Killian MD from the emergency room. Thank you for allowing me to see this very interesting patient. Sincerely, Ruperto Alvarado MD 01/21/2025 7:41 PM documented in this encounter [facility] 01-21-2025 Emergency department Note She was instructed to report to the ER arrival desk @ [facility]. She voiced understanding. [facility] 01-21-[address] killian gave a verbal order to leave the IV inplace & she has a electric pile driver operator to take her to [facility] ED. [facility] 01-21-2025 Emergency department Note Checked on Courtney and she is reporting no change. [facility] 01-21-2025 Emergency department Note No improvement. [facility] 01-21-2025 Physician Emergency department Note ED Diagnosis and Summary 1. Food impaction of esophagus, initial encounter ED Summary Ms. Deng presented to the [facility] ED with food stuck in her esophagus. No relief with glucagon. Ms. Deng will be going to the [facility] ED for GI evaluation. She is going by personal auto. I spoke with the [facility] CC, Negrita CASTRO, and Dr. Regan. Case was discussed with Dr. Alvarado. History Chief Complaint Patient presents with Other Food stuck Patient's medications, allergies, past medical, surgical, social and family histories were reviewed and updated as appropriate. Past Medical History: Diagnosis Date Fatima's esophagus Cancer (HCC) Hypertension Myocardial infarction (HCC) 04/2020 Past Surgical History: Procedure Laterality Date ESOPHAGOGASTRODUODENOSCOPY WITH BIOPSY N/A 05/23/2022 ESOPHAGOGASTRODUODENOSCOPY WITH BIOPSY performed by Suzy James MD at ENDOSCOPY EYE SURGERY 2014 cataract on posterior of both eyes FRACTURE SURGERY Left 10/09/1999 Ankle fx lip biopsy TUBAL LIGATION 1985 Family History Problem Relation Name Age of Onset Heart disease Mother Diabetes Sister Cancer Sister 60 metastatic small cell Cancer Other Cancer Brother 57 metastatic small cell Social History Socioeconomic History Marital status: Tobacco Use Smoking status: Former Current packs/day: 0.00 Types: Cigarettes Quit date: 10/08/1977 Years since quittin.3 Smokeless tobacco: Never Vaping Use Vaping status: Never Used Substance and Sexual Activity Alcohol use: Not Currently Comment: rare Drug use: No No current facility-administered medications for this encounter. Current Outpatient Medications Medication Sig Dispense Refill Acetaminophen (TYLENOL 8 HOUR PO) Take 500 mg by mouth daily. aspirin EC (ECOTRIN LOW STRENGTH) 81 MG EC tablet Take 1 tablet by mouth daily. atenolol (TENORMIN) 100 MG tablet Take 1/2 (one-half) tablet by mouth once daily 90 tablet 1 Biotin 23323 MCG TABS Take by mouth. Calcium Carb-Cholecalciferol (CALCIUM 500 + D PO) Take by mouth daily. clopidogrel (PLAVIX) 75 MG tablet Take 1 tablet by mouth daily. 90 tablet 3 Continuous Glucose Language Asst (DEXCOM G7 WASTEW[employer]ANT ATTENDANT) GRANT 1 Application by Does not apply route 3 times daily. 1 each 0 Continuous Glucose Sensor (DEXCOM G7 SENSOR) MISC 1 Application by Does not apply route 3 times daily as needed. 4 each 3 Continuous Glucose Sensor MISC 1 Application by Does not apply route every 10 days. 9 applicator 3 cyclobenzaprine (FLEXERIL) 10 MG tablet Take 1 tablet by mouth 3 times daily as needed for Muscle spasms. 15 tablet 0 DIPHENHYDRAMINE-ACETAMINOPHEN PO Take by mouth. Dulaglutide (TRULICITY) 0.75 MG/0.5ML SC Pen Inject 0.75 mg into the skin every 7 days. 6 mL 1 Dulaglutide (TRULICITY) 0.75 MG/0.5ML SC Pen Inject 0.75 mg into the skin every 7 days. 6 mL 4 enalapril (VASOTEC) 10 MG tablet Take 1 tablet by mouth daily. 90 tablet 3 ezetimibe (ZETIA) 10 MG tablet Take 1 tablet by mouth daily. 90 tablet 2 ferrous gluconate (FERGON) 324 (38 Fe) MG tablet Take 1 tablet by mouth 3 times daily (with meals). 90 tablet 5 fluconazole (DIFLUCAN) 150 MG tablet Take 1 tablet by mouth every 72 hours. 2 tablet 0 furosemide (LASIX) 20 MG tablet Take 1 tablet by mouth once daily 90 tablet 3 glipiZIDE (GLUCOTROL) 5 MG tablet Take 1 tablet by mouth every morning (before breakfast). 90 tablet 3 isosorbide mononitrate (IMDUR) 60 MG 24 hr tablet Take 2 tablets by mouth every morning. 180 tablet 3 Magnesium 500 MG TABS Take by mouth daily. Melatonin 10 MG TABS Take 10 mg by mouth nightly as needed. methylPREDNISolone (MEDROL DOSEPAK) 4 MG tablet follow package directions 21 tablet 0 nitroGLYCERIN (NITROSTAT) 0.4 MG SL tablet DISSOLVE 1 TABLET EVERY 5-15 MINUTES NEEDED FOR CHEST PAIN; DO NOT EXCEED 3 DOSES PER EPISODE pantoprazole (PROTONIX) 40 MG tablet Take 1 tablet by mouth two times per day. 360 tablet 1 Potassium 95 MG TABS Take 99 mLs by mouth Daily. ranolazine (RANEXA) 500 MG 12 hr tablet Take 1 tablet by mouth two times a day. 180 tablet 3 Allergies Allergen Reactions Atorvastatin Nausea Only Codeine Nausea And Vomiting Doxycycline Other (See Comments) Stomach felt like it was on fire Metformin Nausea Only Naproxen Nausea And Vomiting Nitrofurantoin Nausea Only Benadryl Allergy Nausea Only High does made her sick to her stomach Courtney Deng 74 y.o. female presents to the [facility] ED with food (potatoes and pork chop) stuck in her throat. Symptoms began shortly prior to ED arrival. She reports she has gotten food stuck before but it usually passes within a few minutes. Ms. Deng had an EGD with Dr. James in 2021 which showed reflux esophagitis, a small-moderate size type 3 paraesophageal hernia, gastric polyps, and mild duodenitis. The history is provided by the patient and medical records. Review of Systems HENT: Positive for trouble swallowing. Physical Exam ED Triage Vitals [01/21/25 1642] BP 177/76 Heart Rate 72 Resp 24 Temp 97.7 F (36.5 C) Temp src FOREHEAD SpO2 100 % Weight 191 lb (86.6 kg) Height 5' 1 (1.549 m) BMI (Calculated) 36.11 Physical Exam Vitals and nursing note reviewed. Constitutional: Comments: Patient gagging, retching, and spitting into an emesis bag HENT: Head: Normocephalic and atraumatic. Eyes: Extraocular Movements: Extraocular movements intact. Conjunctiva/sclera: Conjunctivae normal. Cardiovascular: Rate and Rhythm: Normal rate and regular rhythm. Pulmonary: Effort: Pulmonary effort is normal. Breath sounds: Normal breath sounds. Musculoskeletal: Cervical back: Normal range of motion and neck supple. Skin: General: Skin is warm and dry. Neurological: General: No focal deficit present. Mental Status: She is alert and oriented to person, place, and time. Psychiatric: Mood and Affect: Mood normal. Behavior: Behavior normal. ED Course Procedures Medical Decision Making Ms. Deng presented to the [facility] ED with food stuck in her esophagus. No relief with glucagon. Ms. Deng will be going to the [facility] ED for GI evaluation. She is going by personal auto. I spoke with the [facility] CC, Negrita CASTRO, and Dr. Regan. Case was discussed with Dr. Alvarado. Problems Addressed: Food impaction of esophagus, initial encounter: acute illness or injury Amount and/or Complexity of Data Reviewed Discussion of management or test interpretation with external provider(s): Discussed with Dr. Alvarado Risk Prescription drug management. Stephen Killian MD 01/21/251824 [facility] 01-21-2025 Emergency department Note Pepsi was given and she took a drink and was able to swallow a little bit then it came right back up. [facility] 01-21-2025 Emergency department Note Checked on Courtney and she is talking & spitting up. She reports I feel like it is stuck in there. [facility] 01-21-2025 Emergency department Triage note Pt arrives to ED via private with c/o food stuck in her throat. Pt states she was eating pork chops and potatoes. Pt states hx of fatima's esophagus and states she was told she did not need her esophagus stretched that it was a muscle problem. Pt states she has been unable to take a drink because she states it comes right back up. Pt A/Ox3 with PWD skin. Respirs easy, unlabored, in NAD. [facility] 12-16-2024 Attending History and physical note UPDATED HISTORY AND PHYSICAL EXAMINATION SERVICE DATE: 12/16/2024 SERVICE TIME: 7:38 AM Participation of a fellow, resident, medical student, or advanced practice provider student in performing the sensitive examination was discussed with the patient or authorized underwriting account representative. The patient or authorized underwriting account representative has agreed to proceed with the sensitive examination. (Sensitive examination includes inspection and/or palpation of the breasts, pelvis, prostate and anorectal regions) PHYSICAL EXAM MUST BE COMPLETED ON ADMISSION The History and Physical (completed in the past 30 days) has been reviewed and the patient has been examined. The contents accurately reflect the patient's condition with the following additions or revisions since the H&P was completed. Examination indicates no changes. This H&P can be found in the Electronic Medical Record dated 11/18/24. SIGNATURE: Alexis Draper MD PATIENT NAME: Courtney Deng DATE: December 16, 2024 TIME: 7:38 AM Source Note - Bib Restrepo PA-C - 11/18/2024 10:54 AM EST New Patient Consult REASON FOR VISIT Courtney Deng is a 73 year old female who is scheduled for a consult for New Patient (Discuss EGD - states it has been over two years since her last upper scope. History of barretts esophagus ) History of Present Illness: 73-year-old patient ambulatory to clinic today to discuss an EGD also dysphagia. 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 Congestive heart failure (HCC) Hypertension Type 2 diabetes mellitus without complication (HCC) 02/12/2020 PAST SURGICAL HISTORY Procedure Laterality Date EGD W/O BRSH SPEC VARICIES INJ PRQ CARDIAC STENT W/ANGIO 1 VSL FAMILY HISTORY Problem Relation Age of Onset Malig Hyperthermia No Family History Social History Tobacco Use Smoking status: Former Types: Cigarettes Smokeless tobacco: Never Substance Use Topics Alcohol use: Never Drug use: Never MEDICATIONS Current Outpatient Medications Medication Sig Dispense Refill cyclobenzaprine (FLEXERIL) 10 mg tablet Take 10 mg by mouth three times a day as needed. TRULICITY 0.75 mg/0.5 mL pen injector INJECT 0.75 MG INTO THE SKIN EVERY 7 DAYS DEXCOM G7 SENSOR grant APPLY 1 SENSOR AND CHANGE EVERY 10 DAYS melatonin 10 mg cap Take 10 mg by mouth. aspirin, enteric coated (ASPIRIN, ENTERIC COATED) 81 mg EC tablet Take 1 tablet by mouth once daily. clopidogrel (PLAVIX) 75 mg tablet Take 1 tablet by mouth once daily. enalapril (VASOTEC) 10 mg tablet Take 1 tablet by mouth once daily. ezetimibe (ZETIA) 10 mg tablet Take 1 tablet by mouth once daily. glipiZIDE (GLUCOTROL) 5 mg tablet Take 5 mg by mouth. nitroglycerin sublingual (NITROQUICK) 0.4 mg SL tablet DISSOLVE 1 TABLET EVERY 5-15 MINUTES NEEDED FOR CHEST PAIN; DO NOT EXCEED 3 DOSES PER EPISODE POTASSIUM-99 ORAL Take by mouth. [id number] ORAL Take by mouth. atenolol (TENORMIN) 100 mg tablet TAKE 1/2 (ONE-HALF) TABLET BY MOUTH ONCE DAILY pantoprazole DR (PROTONIX) 40 mg tablet Take 40 mg by mouth once daily. ranolazine ER (RANEXA) 500 mg 12 hr tablet Take 1 tablet by mouth twice daily. furosemide (LASIX) 20 mg tablet Take 1 tablet by mouth once daily. isosorbide mononitrate ER (IMDUR) 60 mg 24 hr tablet Take 60 mg by mouth twice daily. Magnesium 250 mg tab Take 250 mg by mouth once daily. Ferrous Gluconate (FERGON) 324 mg (38 mg iron) tablet Take 324 mg by mouth three times daily. (Patient not taking: Reported on 11/18/2024) No current facility-administered medications for this visit. CURRENT ALLERGIES ALLERGIES Allergen Reactions Atorvastatin Unknown Blackberry Hives Cephalexin Hcl Intolerance Codeine Unknown, GI Upset Doxycycline GI Upset Stomach felt like it was on fire Metformin Unknown Naproxen GI Upset, Vomiting Nitrofurantoin Unknown Increased BP Benadryl Allergy De* GI Upset High does made her sick to her stomach Review of Systems Constitutional: Negative for chills, fever and weight loss. HENT: Negative for sore throat and tinnitus. Respiratory: Negative for cough, shortness of breath and wheezing. Cardiovascular: Positive for chest pain. Negative for palpitations and leg swelling. Gastrointestinal: Positive for diarrhea. Negative for blood in stool, constipation, nausea and vomiting. Genitourinary: Negative for flank pain, frequency and urgency. Musculoskeletal: Negative for falls and joint pain. Skin: Negative for itching and rash. Neurological: Negative for dizziness, seizures and headaches. Endo/Heme/Allergies: Bruises/bleeds easily. Psychiatric/Behavioral: Positive for depression. The patient is not nervous/anxious. PHYSICAL EXAMINATION Ht 5' 1 (1.55m) Wt 196 lb (88.9kg) BMI 37.05 kg/(m^2). General Appearance: Well appearing, alert, in no acute distress, well-hydrated, well nourished. Skin: Skin color, texture, turgor normal, Head: Normocephalic, Oropharynx: Lips, mucosa, and tongue normal, Neck: Supple, Lungs: Unlabored on room air Heart: RR Extremities: No deformities, edema, Neuro: Gait normal. Abdomen: Abdomen soft, non-tender. Bowel sounds normal. 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 These included but were not limited to infection, persistent pain, bleeding, perforation, nerve injury, blood clots, and medical complications. We also discussed the pre-operative course, surgery itself and rehabilitation. The patient has elected to schedule surgery at this time or intends to call the office with a surgical date. Shared decision making occurred while obtaining written informed consent. Bib Restrepo PA-C DATE: 11/18/24 TIME: 10:54 AM Participation of a fellow, resident, medical student, or advanced practice provider student in performing the sensitive examination was discussed with the patient or authorized underwriting account representative. The patient or authorized underwriting account representative has agreed to proceed with the sensitive examination. (Sensitive examination includes inspection and/or palpation of the breasts, pelvis, prostate and anorectal regions) This note is created with the assistance of a speech-recognition program. It may contain inaccuracies such as misspellings,inaccuarate syntax or word sense that escaped review. [facility] Work Phone: 12-16-2024 History and physical note UPDATED HISTORY AND PHYSICAL EXAMINATION SERVICE DATE: 12/16/2024 SERVICE TIME: 7:38 AM Participation of a fellow, resident, medical student, or advanced practice provider student in performing the sensitive examination was discussed with the patient or authorized underwriting account representative. The patient or authorized underwriting account representative has agreed to proceed with the sensitive examination. (Sensitive examination includes inspection and/or palpation of the breasts, pelvis, prostate and anorectal regions) PHYSICAL EXAM MUST BE COMPLETED ON ADMISSION The History and Physical (completed in the past 30 days) has been reviewed and the patient has been examined. The contents accurately reflect the patient's condition with the following additions or revisions since the H&P was completed. Examination indicates no changes. This H&P can be found in the Electronic Medical Record dated 11/18/24. SIGNATURE: Alexis Draper MD PATIENT NAME: Courtney Deng DATE: December 16, 2024 TIME: 7:38 AM Source Note - Bib Restrepo PA-C - 11/18/2024 10:54 AM EST New Patient Consult REASON FOR VISIT Courntey Deng is a 73 year old female who is scheduled for a consult for New Patient (Discuss EGD - states it has been over two years since her last upper scope. History of barretts esophagus ) History of Present Illness: 73-year-old patient ambulatory to clinic today to discuss an EGD also dysphagia. 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 Congestive heart failure (HCC) Hypertension Type 2 diabetes mellitus without complication (HCC) 02/12/2020 PAST SURGICAL HISTORY Procedure Laterality Date EGD W/O BRSH SPEC VARICIES INJ PRQ CARDIAC STENT W/ANGIO 1 VSL FAMILY HISTORY Problem Relation Age of Onset Malig Hyperthermia No Family History Social History Tobacco Use Smoking status: Former Types: Cigarettes Smokeless tobacco: Never Substance Use Topics Alcohol use: Never Drug use: Never MEDICATIONS Current Outpatient Medications Medication Sig Dispense Refill cyclobenzaprine (FLEXERIL) 10 mg tablet Take 10 mg by mouth three times a day as needed. TRULICITY 0.75 mg/0.5 mL pen injector INJECT 0.75 MG INTO THE SKIN EVERY 7 DAYS DEXCOM G7 SENSOR grant APPLY 1 SENSOR AND CHANGE EVERY 10 DAYS melatonin 10 mg cap Take 10 mg by mouth. aspirin, enteric coated (ASPIRIN, ENTERIC COATED) 81 mg EC tablet Take 1 tablet by mouth once daily. clopidogrel (PLAVIX) 75 mg tablet Take 1 tablet by mouth once daily. enalapril (VASOTEC) 10 mg tablet Take 1 tablet by mouth once daily. ezetimibe (ZETIA) 10 mg tablet Take 1 tablet by mouth once daily. glipiZIDE (GLUCOTROL) 5 mg tablet Take 5 mg by mouth. nitroglycerin sublingual (NITROQUICK) 0.4 mg SL tablet DISSOLVE 1 TABLET EVERY 5-15 MINUTES NEEDED FOR CHEST PAIN; DO NOT EXCEED 3 DOSES PER EPISODE POTASSIUM-99 ORAL Take by mouth. [id number] ORAL Take by mouth. atenolol (TENORMIN) 100 mg tablet TAKE 1/2 (ONE-HALF) TABLET BY MOUTH ONCE DAILY pantoprazole DR (PROTONIX) 40 mg tablet Take 40 mg by mouth once daily. ranolazine ER (RANEXA) 500 mg 12 hr tablet Take 1 tablet by mouth twice daily. furosemide (LASIX) 20 mg tablet Take 1 tablet by mouth once daily. isosorbide mononitrate ER (IMDUR) 60 mg 24 hr tablet Take 60 mg by mouth twice daily. Magnesium 250 mg tab Take 250 mg by mouth once daily. Ferrous Gluconate (FERGON) 324 mg (38 mg iron) tablet Take 324 mg by mouth three times daily. (Patient not taking: Reported on 11/18/2024) No current facility-administered medications for this visit. CURRENT ALLERGIES ALLERGIES Allergen Reactions Atorvastatin Unknown Blackberry Hives Cephalexin Hcl Intolerance Codeine Unknown, GI Upset Doxycycline GI Upset Stomach felt like it was on fire Metformin Unknown Naproxen GI Upset, Vomiting Nitrofurantoin Unknown Increased BP Benadryl Allergy De* GI Upset High does made her sick to her stomach Review of Systems Constitutional: Negative for chills, fever and weight loss. HENT: Negative for sore throat and tinnitus. Respiratory: Negative for cough, shortness of breath and wheezing. Cardiovascular: Positive for chest pain. Negative for palpitations and leg swelling. Gastrointestinal: Positive for diarrhea. Negative for blood in stool, constipation, nausea and vomiting. Genitourinary: Negative for flank pain, frequency and urgency. Musculoskeletal: Negative for falls and joint pain. Skin: Negative for itching and rash. Neurological: Negative for dizziness, seizures and headaches. Endo/Heme/Allergies: Bruises/bleeds easily. Psychiatric/Behavioral: Positive for depression. The patient is not nervous/anxious. PHYSICAL EXAMINATION Ht 5' 1 (1.55m) Wt 196 lb (88.9kg) BMI 37.05 kg/(m^2). General Appearance: Well appearing, alert, in no acute distress, well-hydrated, well nourished. Skin: Skin color, texture, turgor normal, Head: Normocephalic, Oropharynx: Lips, mucosa, and tongue normal, Neck: Supple, Lungs: Unlabored on room air Heart: RR Extremities: No deformities, edema, Neuro: Gait normal. Abdomen: Abdomen soft, non-tender. Bowel sounds normal. 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 These included but were not limited to infection, persistent pain, bleeding, perforation, nerve injury, blood clots, and medical complications. We also discussed the pre-operative course, surgery itself and rehabilitation. The patient has elected to schedule surgery at this time or intends to call the office with a surgical date. Shared decision making occurred while obtaining written informed consent. Bib Restrepo PA-C DATE: 11/18/24 TIME: 10:54 AM Participation of a fellow, resident, medical student, or advanced practice provider student in performing the sensitive examination was discussed with the patient or authorized underwriting account representative. The patient or authorized underwriting account representative has agreed to proceed with the sensitive examination. (Sensitive examination includes inspection and/or palpation of the breasts, pelvis, prostate and anorectal regions) This note is created with the assistance of a speech-recognition program. It may contain inaccuracies such as misspellings,inaccuarate syntax or word sense that escaped review. documented in this encounter [facility] 11-20-2024 Telephone encounter Note Patient was called and advised of message. Patient had no further questions or concerns. Anjana Steward MA [facility] 11-20-2024 Miscellaneous Notes Patient was called and advised of message. Patient had no further questions or concerns. Anjana Steward MA Patient was called and a message was left to return call to the office. Phone number provided. Anjana Steward MA Please let the patient know her mammogram was normal. Next due in 1 year. Esteban Vázquez PA-C ([place]) documented in this encounter [facility] 11-19-2024 Telephone encounter Note Patient was called and a message was left to return call to the office. Phone number provided. Anjana Steward MA [facility] 11-19-2024 Telephone encounter Note Please let the patient know her mammogram was normal. Next due in 1 year. Esteban Vázquez PA-C ([place]) [facility] 11-18-2024 History and physical note New Patient Consult REASON FOR VISIT Courtney Deng is a 73 year old female who is scheduled for a consult for New Patient (Discuss EGD - states it has been over two years since her last upper scope. History of barretts esophagus ) History of Present Illness: 73-year-old patient ambulatory to clinic today to discuss an EGD also dysphagia. 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 Congestive heart failure (HCC) Hypertension Type 2 diabetes mellitus without complication (HCC) 02/12/2020 PAST SURGICAL HISTORY Procedure Laterality Date EGD W/O BRSH SPEC VARICIES INJ PRQ CARDIAC STENT W/ANGIO 1 VSL FAMILY HISTORY Problem Relation Age of Onset Malig Hyperthermia No Family History Social History Tobacco Use Smoking status: Former Types: Cigarettes Smokeless tobacco: Never Substance Use Topics Alcohol use: Never Drug use: Never MEDICATIONS Current Outpatient Medications Medication Sig Dispense Refill cyclobenzaprine (FLEXERIL) 10 mg tablet Take 10 mg by mouth three times a day as needed. TRULICITY 0.75 mg/0.5 mL pen injector INJECT 0.75 MG INTO THE SKIN EVERY 7 DAYS DEXCOM G7 SENSOR grant APPLY 1 SENSOR AND CHANGE EVERY 10 DAYS melatonin 10 mg cap Take 10 mg by mouth. aspirin, enteric coated (ASPIRIN, ENTERIC COATED) 81 mg EC tablet Take 1 tablet by mouth once daily. clopidogrel (PLAVIX) 75 mg tablet Take 1 tablet by mouth once daily. enalapril (VASOTEC) 10 mg tablet Take 1 tablet by mouth once daily. ezetimibe (ZETIA) 10 mg tablet Take 1 tablet by mouth once daily. glipiZIDE (GLUCOTROL) 5 mg tablet Take 5 mg by mouth. nitroglycerin sublingual (NITROQUICK) 0.4 mg SL tablet DISSOLVE 1 TABLET EVERY 5-15 MINUTES NEEDED FOR CHEST PAIN; DO NOT EXCEED 3 DOSES PER EPISODE POTASSIUM-99 ORAL Take by mouth. [id number] ORAL Take by mouth. atenolol (TENORMIN) 100 mg tablet TAKE 1/2 (ONE-HALF) TABLET BY MOUTH ONCE DAILY pantoprazole DR (PROTONIX) 40 mg tablet Take 40 mg by mouth once daily. ranolazine ER (RANEXA) 500 mg 12 hr tablet Take 1 tablet by mouth twice daily. furosemide (LASIX) 20 mg tablet Take 1 tablet by mouth once daily. isosorbide mononitrate ER (IMDUR) 60 mg 24 hr tablet Take 60 mg by mouth twice daily. Magnesium 250 mg tab Take 250 mg by mouth once daily. Ferrous Gluconate (FERGON) 324 mg (38 mg iron) tablet Take 324 mg by mouth three times daily. (Patient not taking: Reported on 11/18/2024) No current facility-administered medications for this visit. CURRENT ALLERGIES ALLERGIES Allergen Reactions Atorvastatin Unknown Blackberry Hives Cephalexin Hcl Intolerance Codeine Unknown, GI Upset Doxycycline GI Upset Stomach felt like it was on fire Metformin Unknown Naproxen GI Upset, Vomiting Nitrofurantoin Unknown Increased BP Benadryl Allergy De* GI Upset High does made her sick to her stomach Review of Systems Constitutional: Negative for chills, fever and weight loss. HENT: Negative for sore throat and tinnitus. Respiratory: Negative for cough, shortness of breath and wheezing. Cardiovascular: Positive for chest pain. Negative for palpitations and leg swelling. Gastrointestinal: Positive for diarrhea. Negative for blood in stool, constipation, nausea and vomiting. Genitourinary: Negative for flank pain, frequency and urgency. Musculoskeletal: Negative for falls and joint pain. Skin: Negative for itching and rash. Neurological: Negative for dizziness, seizures and headaches. Endo/Heme/Allergies: Bruises/bleeds easily. Psychiatric/Behavioral: Positive for depression. The patient is not nervous/anxious. PHYSICAL EXAMINATION Ht 5' 1 (1.55m) Wt 196 lb (88.9kg) BMI 37.05 kg/(m^2). General Appearance: Well appearing, alert, in no acute distress, well-hydrated, well nourished. Skin: Skin color, texture, turgor normal, Head: Normocephalic, Oropharynx: Lips, mucosa, and tongue normal, Neck: Supple, Lungs: Unlabored on room air Heart: RR Extremities: No deformities, edema, Neuro: Gait normal. Abdomen: Abdomen soft, non-tender. Bowel sounds normal. 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 These included but were not limited to infection, persistent pain, bleeding, perforation, nerve injury, blood clots, and medical complications. We also discussed the pre-operative course, surgery itself and rehabilitation. The patient has elected to schedule surgery at this time or intends to call the office with a surgical date. Shared decision making occurred while obtaining written informed consent. Bib Restrepo PA-C DATE: 11/18/24 TIME: 10:54 AM Participation of a fellow, resident, medical student, or advanced practice provider student in performing the sensitive examination was discussed with the patient or authorized underwriting account representative. The patient or authorized underwriting account representative has agreed to proceed with the sensitive examination. (Sensitive examination includes inspection and/or palpation of the breasts, pelvis, prostate and anorectal regions) This note is created with the assistance of a speech-recognition program. It may contain inaccuracies such as misspellings,inaccuarate syntax or word sense that escaped review. [facility] 11-18-2024 History and physical note New Patient Consult REASON FOR VISIT Courtney Deng is a 73 year old female who is scheduled for a consult for New Patient (Discuss EGD - states it has been over two years since her last upper scope. History of barretts esophagus ) History of Present Illness: 73-year-old patient ambulatory to clinic today to discuss an EGD also dysphagia. 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 Congestive heart failure (HCC) Hypertension Type 2 diabetes mellitus without complication (HCC) 02/12/2020 PAST SURGICAL HISTORY Procedure Laterality Date EGD W/O BRSH SPEC VARICIES INJ PRQ CARDIAC STENT W/ANGIO 1 VSL FAMILY HISTORY Problem Relation Age of Onset Malig Hyperthermia No Family History Social History Tobacco Use Smoking status: Former Types: Cigarettes Smokeless tobacco: Never Substance Use Topics Alcohol use: Never Drug use: Never MEDICATIONS Current Outpatient Medications Medication Sig Dispense Refill cyclobenzaprine (FLEXERIL) 10 mg tablet Take 10 mg by mouth three times a day as needed. TRULICITY 0.75 mg/0.5 mL pen injector INJECT 0.75 MG INTO THE SKIN EVERY 7 DAYS DEXCOM G7 SENSOR grant APPLY 1 SENSOR AND CHANGE EVERY 10 DAYS melatonin 10 mg cap Take 10 mg by mouth. aspirin, enteric coated (ASPIRIN, ENTERIC COATED) 81 mg EC tablet Take 1 tablet by mouth once daily. clopidogrel (PLAVIX) 75 mg tablet Take 1 tablet by mouth once daily. enalapril (VASOTEC) 10 mg tablet Take 1 tablet by mouth once daily. ezetimibe (ZETIA) 10 mg tablet Take 1 tablet by mouth once daily. glipiZIDE (GLUCOTROL) 5 mg tablet Take 5 mg by mouth. nitroglycerin sublingual (NITROQUICK) 0.4 mg SL tablet DISSOLVE 1 TABLET EVERY 5-15 MINUTES NEEDED FOR CHEST PAIN; DO NOT EXCEED 3 DOSES PER EPISODE POTASSIUM-99 ORAL Take by mouth. [id number] ORAL Take by mouth. atenolol (TENORMIN) 100 mg tablet TAKE 1/2 (ONE-HALF) TABLET BY MOUTH ONCE DAILY pantoprazole DR (PROTONIX) 40 mg tablet Take 40 mg by mouth once daily. ranolazine ER (RANEXA) 500 mg 12 hr tablet Take 1 tablet by mouth twice daily. furosemide (LASIX) 20 mg tablet Take 1 tablet by mouth once daily. isosorbide mononitrate ER (IMDUR) 60 mg 24 hr tablet Take 60 mg by mouth twice daily. Magnesium 250 mg tab Take 250 mg by mouth once daily. Ferrous Gluconate (FERGON) 324 mg (38 mg iron) tablet Take 324 mg by mouth three times daily. (Patient not taking: Reported on 11/18/2024) No current facility-administered medications for this visit. CURRENT ALLERGIES ALLERGIES Allergen Reactions Atorvastatin Unknown Blackberry Hives Cephalexin Hcl Intolerance Codeine Unknown, GI Upset Doxycycline GI Upset Stomach felt like it was on fire Metformin Unknown Naproxen GI Upset, Vomiting Nitrofurantoin Unknown Increased BP Benadryl Allergy De* GI Upset High does made her sick to her stomach Review of Systems Constitutional: Negative for chills, fever and weight loss. HENT: Negative for sore throat and tinnitus. Respiratory: Negative for cough, shortness of breath and wheezing. Cardiovascular: Positive for chest pain. Negative for palpitations and leg swelling. Gastrointestinal: Positive for diarrhea. Negative for blood in stool, constipation, nausea and vomiting. Genitourinary: Negative for flank pain, frequency and urgency. Musculoskeletal: Negative for falls and joint pain. Skin: Negative for itching and rash. Neurological: Negative for dizziness, seizures and headaches. Endo/Heme/Allergies: Bruises/bleeds easily. Psychiatric/Behavioral: Positive for depression. The patient is not nervous/anxious. PHYSICAL EXAMINATION Ht 5' 1 (1.55m) Wt 196 lb (88.9kg) BMI 37.05 kg/(m^2). General Appearance: Well appearing, alert, in no acute distress, well-hydrated, well nourished. Skin: Skin color, texture, turgor normal, Head: Normocephalic, Oropharynx: Lips, mucosa, and tongue normal, Neck: Supple, Lungs: Unlabored on room air Heart: RR Extremities: No deformities, edema, Neuro: Gait normal. Abdomen: Abdomen soft, non-tender. Bowel sounds normal. 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 These included but were not limited to infection, persistent pain, bleeding, perforation, nerve injury, blood clots, and medical complications. We also discussed the pre-operative course, surgery itself and rehabilitation. The patient has elected to schedule surgery at this time or intends to call the office with a surgical date. Shared decision making occurred while obtaining written informed consent. Bib Restrepo PA-C DATE: 11/18/24 TIME: 10:54 AM Participation of a fellow, resident, medical student, or advanced practice provider student in performing the sensitive examination was discussed with the patient or authorized underwriting account representative. The patient or authorized underwriting account representative has agreed to proceed with the sensitive examination. (Sensitive examination includes inspection and/or palpation of the breasts, pelvis, prostate and anorectal regions) This note is created with the assistance of a speech-recognition program. It may contain inaccuracies such as misspellings,inaccuarate syntax or word sense that escaped review. documented in this encounter [facility] 11-10-2024 History of Present illness Narrative Radiology Service Progress Note PATIENT NAME: Courtney Deng DATE OF SERVICE: November 10, 2024 TIME: 11:52 AM PATIENT IDENTITY VERIFICATION COMPLETED USING TWO (2) IDENTIFIERS: Name and Date of confirmed by patient verbally and Name and Date of confirmed by identification band. FALL SCREENING: Has the patient had 2 falls in the last year or 1 fall with injury or currently using an Ambulatory Assistive Device (Walker, Cane, Wheelchair, Crutches, etc.)? No PATIENT GENDER DATA: Assigned female at . status: : No status: NO. PATIENT RELEVANT IMPLANT DATA REVIEWED: Not Applicable PATIENT PRESENTS WITH AN IMPLANTABLE OR ATTACHED PRECISION HONING MACHINE OPERATOR: No RADIOLOGY DEPARTMENT: Mammography PERIPHERAL IV DATA: Not applicable SIGNED BY: RT Zack(R) November 10, 2024 11:52 AM documented in this encounter [facility] 11-10-2024 Note HNO ID: [id number] Author: DORA DO RT(R) Service: ? Author Type: Technologist Type: Progress Notes Filed: 11/10/2024 11:52 Note Text: Radiology Service Progress Note PATIENT NAME: Courtney Deng DATE OF SERVICE: November 10, 2024 TIME: 11:52 AM PATIENT IDENTITY VERIFICATION COMPLETED USING TWO (2) IDENTIFIERS: Name and Date of confirmed by patient verbally and Name and Date of confirmed by identification band. FALL SCREENING: Has the patient had 2 falls in the last year or 1 fall with injury or currently using an Ambulatory Assistive Device (Walker, Cane, Wheelchair, Crutches, etc.)? No PATIENT GENDER DATA: Assigned female at . status: : No status: NO. PATIENT RELEVANT IMPLANT DATA REVIEWED: Not Applicable PATIENT PRESENTS WITH AN IMPLANTABLE OR ATTACHED PRECISION HONING MACHINE OPERATOR: No RADIOLOGY DEPARTMENT: Mammography PERIPHERAL IV DATA: Not applicable SIGNED BY: THOM Dixon) November 10, 2024 11:52 AM [facility] 10-31-[address] - 10/31/2024 11:31 AM EST Aim for frequent small meals or make dinner lightest meal Keep foods lean and low fat: Chicken, turkey, fish, limit high fat and high saturated meats (milton, sausage, salmoni, pepperoni, bologne etc), bake, broil, roast and grill, no frying Dairy products low fat: skim/1%; low fat cheese, sour cream and cream cheeses; Carbs and starches should be whole grain and high fiber. Follow the Plate Method at lunch and dinner: Aim for about 30 grams carbs per meal/30 grams;carbs are the starch, fruit and milk group and is defined Use a 9 plate - 1/2 plate vegetables-non starchy such as green beans, greens, broccoli, cauliflower, etc (1 serving of fruit optional outside of plate) - 1/4 plate lean protein-primarily chicken, turkey fish, lean red 1-2 x per week at most (size of palm) - 1/4 plate whole grain or starchy vegetable such as corn, peas, potatoes, beans (size of fist, 1 cup) Avoid: high sugar and high fat foods;carbonation, coffee, tea, spicy foods Keep food records to hep determine foods intolerant to Start back with regular exercise, exercise bike documented in this encounter [facility] 10-31-2024 History of Present illness Narrative [facility] Nutrition Therapy: Virtual Consult - Initial Assessment I have communicated my name and active licensure. The patient s identity and physical location were verified at the time of this visit. Either the patient or their legal underwriting account representative has been informed of the risks and benefits of -- and alternatives to -- treatment through a remote evaluation and consents to proceed with the evaluation remotely. Nutrition Diagnosis: Behavioral-Environmental: Food and nutrition related knowledge deficit, related to, lack of prior exposure to information , as evidenced by change in existing diagnosis or condition. RECOMMENDED MALNUTRITION DIAGNOSIS: NO MALNUTRITION IDENTIFIED NUTRITION CARE PLAN Nutrition Intervention 10/31/2024: modify type and amount of food or beverage Aim for frequent small meals or make dinner lightest meal Keep foods lean and low fat: Chicken, turkey, fish, limit high fat and high saturated meats (milton, sausage, salmoni, pepperoni, bologne etc), bake, broil, roast and grill, no frying Dairy products low fat: skim/1%; low fat cheese, sour cream and cream cheeses; Carbs and starches should be whole grain and high fiber. Follow the Plate Method at lunch and dinner: Aim for about 30 grams carbs per meal/30 grams;carbs are the starch, fruit and milk group and is defined Use a 9 plate - 1/2 plate vegetables-non starchy such as green beans, greens, broccoli, cauliflower, etc (1 serving of fruit optional outside of plate) - 1/4 plate lean protein-primarily chicken, turkey fish, lean red 1-2 x per week at most (size of palm) - 1/4 plate whole grain or starchy vegetable such as corn, peas, potatoes, beans (size of fist, 1 cup) Avoid: high sugar and high fat foods;carbonation, coffee, tea, spicy foods Keep food records to hep determine foods intolerant to Start back with regular exercise, exercise bike Nutrition Monitoring & Evaluation: balanced diet, labs in target in range Need for Follow up: 4-6 weeks Patient presents for initial MNT as relates to Fatima's esophagus and diabetes,GERD; Other medical issues CHF, HTN, HLD. Struggling with foods for both. Is having difficulty swallowing breads and meats. On Trulicity and Glipizide for control. Having Blood sugar wide variances,can go from 258 to 50, feels symptomatic at 80. HgA1c 6.2. Patient's symptoms are: difficutly swallowing some foods, elevated blood sugars Diet History: 101-178 Breakfast - this morning wheat chex; 2%; usually eggs, occ sausage; water 250 3 hours after meals Snack - no Lunch - yesterday: half bun with 2 small sausage sagrario's; hamburger sagrario; steamed veg with omani sausage; Snack - no Dinner - veg soup with prime rib; pepperoni pizza, occ out for [employer], [employer] for chicken, broccoli and salad; may have breakfast foods; Snack - if hungry a few cashews peanuts Beverages - water, occ Pepsi Alcohol- no Vitamins/Supplements - potassium, magnesium, zinc, calcium To bed 12-3 a.m. 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 Resting Metabolic Rate: 1350 Malnutrition Screening Significant unintentional weight loss? No Eating less than 75% of usual intake for more than 2 weeks? No Potential Signs of Inflammation: no identifiable sources Education Materials Provided: Heart Healthy Eating for Lowering Cholesterol Levels , Eating Healthy with Diabetes, Lifestyle Guidelines for the Treatment of GERD, and Healthy Lunch/Dinner Plate READINESS TO LEARN Cognitive ability: Alert and oriented Motivation to learn: Interested Family support: Unable to assess - Family not present Instruction provided to: Patient Patient learns best by: Individual Instruction Factors affecting learning: None Physical limitations affecting learning: None Referred by: Gurpreet SNEED Billing Type: Initial Assess/15 min 2 units SIGNATURE: Daina Dewey RD PATIENt NAME: Courtney Deng DATE: October 31, 2024 TIME: 10:54 AM documented in this encounter [facility] 10-24-2024 Telephone encounter Note Courtney Deng has been referred to [facility] [place] for Nutrition therapy. P [phone] F [phone] The referral has been faxed and there office will call the patient to schedule. The patient was informed. [facility] 10-24-2024 Miscellaneous Notes Courtney Deng has been referred to [facility] in [place] for Nutrition therapy. P [phone] F [phone] The referral has been faxed and there office will call the patient to schedule. The patient was informed. documented in this encounter [facility] 10-22-2024 Telephone encounter Note Patient advised Jewell Joel MA [facility] 10-22-2024 Miscellaneous Notes Patient advised Jewell Joel MA Please let the patient know her urine looked OK! No evidence of infection. No glucose. Her A1c was 6.2! This is great. With this result, let's think about increasing the Trulicity dose and decreasing the Glipizide. Glipizide is likely contributing to her episodes of low blood sugar. Something to think about before her next appointment with me! Let me know if she has any questions. Esteban Vázquez PA-C ([place]) documented in this encounter [facility] 10-22-2024 Telephone encounter Note Please let the patient know her urine looked OK! No evidence of infection. No glucose. Her A1c was 6.2! This is great. With this result, let's think about increasing the Trulicity dose and decreasing the Glipizide. Glipizide is likely contributing to her episodes of low blood sugar. Something to think about before her next appointment with me! Let me know if she has any questions. Esteban Vázquez PA-C ([place]) [facility] 10-22-2024 Telephone encounter Note Courtney J Glass [id number] Courtney J Glass has been referred to General Surgery Dr Parker. 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 They were in the office while scheduling [facility] 10-22-2024 Miscellaneous Notes Courtney J Sowmya [id number] Courtney Deng has been referred to General Surgery Dr Parker. 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 They were in the office while scheduling documented in this encounter [facility] 10-22-2024 Telephone encounter Note Courtney Deng [id number] Courtney Deng has been referred to [facility] for a mammogram. [facility] [place] [phone] I set this up for November 10 at 9:15 am. This patient has been informed via patient was at the office while the appointment was made. [facility] 10-22-2024 Miscellaneous Notes Courtney Deng [id number] Courtney Deng has been referred to [facility] for a mammogram. [facility] [place] [phone] I set this up for November 10 at 9:15 am. This patient has been informed via patient was at the office while the appointment was made. documented in this encounter [facility] 10-22-2024 Note HNO ID: [id number] Author: ESTEBAN VÁZQUEZ PA-C Service: ? Author Type: Physician Nursing Scheduler Type: Progress Notes Filed: 10/22/2024 15:49 Note Text: Subjective Courtney Deng is a 73 year old female here today for a new patient exam. Concern(s) today include: Lost her in February, this has been a hard transition. Does have a great support network with her sister in law, children, and neighbors. Notes intermittent episodes of foul odor to urine. Last occurred a few days ago. Would like urine checked today. Type 2 DM: Managed by previous PCP. Last A1c 6.7% on 07/11/24. Trulicity was added to her regimen ~05/2024. Also on Glipizide daily. Could not tolerate Metformin. Uses Dexcom. Reports readings fluctuate from the 200s to the 50s. Hyperglycemia symptoms include sweating, hypoglycemia symptoms include shakiness. Up to date on eye exam. No neuropathy. HTN: Well controlled and stable on atenolol and enalapril. HLD: Due for labs. On Zetia. Listed intolerance to atorvastatin. CHF/Hx [place] and stents: Follows with cardiology. They manage her medications such as Ranexa, nitroglycerin, Imdur, and lasix. Chris: Was getting annual scopes, has been about 2 years since last EGD. Diagnosed 3-4 years ago. Over last 3-4 weeks patient has noted intermittent dysphagia when eating bread or meat. Other specialists: - Cardiology, Layla Thomas and Dr. Jose Luis Landa, annually. Currently seeing them for recently developed chest pain, has a stress test scheduled for tomorrow. Next appt is Oct 30, 2024. - Dermatology in [place] as needed due to patient's history of basal cell (nose) - Dr. Velasquez is her eye doctor. Up to date on eye exam. Her medications were reviewed today and her list is now up to date. She is compliant on taking her medications: Yes She is tolerating her medication(s) without side effects: Yes She is following an appropriate diet for her medical problems: No, its hard being alone. States it is difficult finding foods that she can eat that don't bother her stomach or affect her sugars. She is getting some exercise in? Yes, cleaning her house, shovel driveway. Social History Tobacco Use Smoking status: Former Types: Cigarettes Smokeless tobacco: Never Substance Use Topics Alcohol use: Never Drug use: Never REVIEW OF SYSTEMS: Review of Systems Constitutional: Negative for chills, diaphoresis, fatigue and fever. HENT: Positive for trouble swallowing. Negative for congestion, ear pain, rhinorrhea, sore throat and voice change. Eyes: Negative. Respiratory: Negative for cough, chest tightness, shortness of breath and wheezing. Cardiovascular: Positive for chest pain. Negative for palpitations and leg swelling. Gastrointestinal: Negative for abdominal pain, blood in stool, constipation, diarrhea, nausea and vomiting. Genitourinary: Negative. Positive for urine odor Musculoskeletal: Negative for arthralgias, back pain, myalgias and neck pain. Skin: Negative for rash. Neurological: Negative for dizziness, seizures, syncope, weakness, light-headedness, numbness and headaches. Psychiatric/Behavioral: Negative for behavioral problems, hallucinations, self-injury, sleep disturbance and suicidal ideas. The patient is not hyperactive. Grief Objective PHYSICAL EXAMINATION: BP 126/70 (BP Site: Right Arm, BP Position: Sitting, BP Cuff Size: Regular Adult) Pulse 63 Temp 36.7 ?C (98 ?F) (Temporal) Resp 18 Ht 154.9 cm (5' 1) Wt 89.4 kg (197 lb) SpO2 98% BMI 37.22 kg/m? BMI 37.22 kg/(m2) Physical Exam Vitals reviewed. Constitutional: General: She is not in acute distress. Appearance: Normal appearance. She is obese. She is not ill-appearing or diaphoretic. HENT: Head: Normocephalic and atraumatic. Nose: Nose normal. Mouth/Throat: Mouth: Mucous membranes are moist. Eyes: Extraocular Movements: Extraocular movements intact. Conjunctiva/sclera: Conjunctivae normal. Cardiovascular: Rate and Rhythm: Normal rate. Pulmonary: Effort: Pulmonary effort is normal. Abdominal: General: Abdomen is flat. Musculoskeletal: General: Normal range of motion. Cervical back: Normal range of motion. Skin: General: Skin is warm and dry. Findings: No rash. Neurological: General: No focal deficit present. Mental Status: She is alert and oriented to person, place, and time. Gait: Gait normal. Psychiatric: Mood and Affect: Mood normal. Behavior: Behavior normal. UA results: GLUCOSE UA (POCT) Negative mg/dL Negative BILIRUBIN UA (POCT) Negative Negative KETONE UA (POCT) Negative mg/dL Negative SPECIFIC GRAVITY UA (POCT) 1.005 - 1.030 1.010 HEMOGLOBIN/BLOOD UA (POCT) Negative Trace-lysed Abnormal PH UA (POCT) 4.5 - 8.0 5.5 PROTEIN UA (POCT) Negative mg/dL Negative UROBILINOGEN UA (POCT) Normal E.U./dL 0.2 NITRITE UA (POCT) Negative Negative LEUKOCYTES UA (POCT) Negative Small Abnormal COLOR UA (more content not included)... [facility] 10-22-2024 History of Present illness Narrative Ricky Deng is a 73 year old female here today for a new patient exam. Concern(s) today include: Lost her in February, this has been a hard transition. Does have a great support network with her sister in law, children, and neighbors. Notes intermittent episodes of foul odor to urine. Last occurred a few days ago. Would like urine checked today. Type 2 DM: Managed by previous PCP. Last A1c 6.7% on 07/11/24. Trulicity was added to her regimen ~05/2024. Also on Glipizide daily. Could not tolerate Metformin. Uses Dexcom. Reports readings fluctuate from the 200s to the 50s. Hyperglycemia symptoms include sweating, hypoglycemia symptoms include shakiness. Up to date on eye exam. No neuropathy. HTN: Well controlled and stable on atenolol and enalapril. HLD: Due for labs. On Zetia. Listed intolerance to atorvastatin. CHF/Hx [place] and stents: Follows with cardiology. They manage her medications such as Ranexa, nitroglycerin, Imdur, and lasix. Barretts: Was getting annual scopes, has been about 2 years since last EGD. Diagnosed 3-4 years ago. Over last 3-4 weeks patient has noted intermittent dysphagia when eating bread or meat. Other specialists: - Cardiology, Layla Thomas and Dr. Jose Luis Landa, annually. Currently seeing them for recently developed chest pain, has a stress test scheduled for tomorrow. Next appt is Oct 30, 2024. - Dermatology in [place] as needed due to patient's history of basal cell (nose) - Dr. Velasquez is her eye doctor. Up to date on eye exam. Her medications were reviewed today and her list is now up to date. She is compliant on taking her medications: Yes She is tolerating her medication(s) without side effects: Yes She is following an appropriate diet for her medical problems: No, its hard being alone. States it is difficult finding foods that she can eat that don't bother her stomach or affect her sugars. She is getting some exercise in? Yes, cleaning her house, shovel driveway. Social History Tobacco Use Smoking status: Former Types: Cigarettes Smokeless tobacco: Never Substance Use Topics Alcohol use: Never Drug use: Never REVIEW OF SYSTEMS: Review of Systems Constitutional: Negative for chills, diaphoresis, fatigue and fever. HENT: Positive for trouble swallowing. Negative for congestion, ear pain, rhinorrhea, sore throat and voice change. Eyes: Negative. Respiratory: Negative for cough, chest tightness, shortness of breath and wheezing. Cardiovascular: Positive for chest pain. Negative for palpitations and leg swelling. Gastrointestinal: Negative for abdominal pain, blood in stool, constipation, diarrhea, nausea and vomiting. Genitourinary: Negative. Positive for urine odor Musculoskeletal: Negative for arthralgias, back pain, myalgias and neck pain. Skin: Negative for rash. Neurological: Negative for dizziness, seizures, syncope, weakness, light-headedness, numbness and headaches. Psychiatric/Behavioral: Negative for behavioral problems, hallucinations, self-injury, sleep disturbance and suicidal ideas. The patient is not hyperactive. Grief Objective PHYSICAL EXAMINATION: BP 126/70 (BP Site: Right Arm, BP Position: Sitting, BP Cuff Size: Regular Adult) Pulse 63 Temp 36.7 C (98 F) (Temporal) Resp 18 Ht 154.9 cm (5' 1) Wt 89.4 kg (197 lb) SpO2 98% BMI 37.22 kg/m BMI 37.22 kg/(m^2) Physical Exam Vitals reviewed. Constitutional: General: She is not in acute distress. Appearance: Normal appearance. She is obese. She is not ill-appearing or diaphoretic. HENT: Head: Normocephalic and atraumatic. Nose: Nose normal. Mouth/Throat: Mouth: Mucous membranes are moist. Eyes: Extraocular Movements: Extraocular movements intact. Conjunctiva/sclera: Conjunctivae normal. Cardiovascular: Rate and Rhythm: Normal rate. Pulmonary: Effort: Pulmonary effort is normal. Abdominal: General: Abdomen is flat. Musculoskeletal: General: Normal range of motion. Cervical back: Normal range of motion. Skin: General: Skin is warm and dry. Findings: No rash. Neurological: General: No focal deficit present. Mental Status: She is alert and oriented to person, place, and time. Gait: Gait normal. Psychiatric: Mood and Affect: Mood normal. Behavior: Behavior normal. UA results: GLUCOSE UA (POCT) Negative mg/dL Negative BILIRUBIN UA (POCT) Negative Negative KETONE UA (POCT) Negative mg/dL Negative SPECIFIC GRAVITY UA (POCT) 1.005 - 1.030 1.010 HEMOGLOBIN/BLOOD UA (POCT) Negative Trace-lysed Abnormal PH UA (POCT) 4.5 - 8.0 5.5 PROTEIN UA (POCT) Negative mg/dL Negative UROBILINOGEN UA (POCT) Normal E.U./dL 0.2 NITRITE UA (POCT) Negative Negative LEUKOCYTES UA (POCT) Negative Small Abnormal COLOR UA (POCT) Light yellow CLARITY UA (POCT) Slightly Cloudy Assessment /Plan 1. Type 2 diabetes mellitus without complication, without long-term current use of insulin (HCC) - ICD9: 250.00, ICD10: E11.9 (primary diagnosis) - Controlled - Continue current medications - Discussed diabetic education issues of hypoglycemic/hyperglycemic symptoms and medication-specific side effects and monitoring - HEMOGLOBIN A1C (POC) 6.2% today - ALBUMIN/CREATININE RATIO, URINE - CONSULT TO NUTRITION THERAPY 2. Essential (primary) hypertension - ICD9: 401.9, ICD10: I10 - Controlled - Continue current medications - Recommend home blood pressure monitoring, to bring results to next visit - Encouraged sodium restriction, DASH or Mediterranean diet - Recommend regular aerobic exercise 3. Hyperlipemia, mixed - ICD9: 272.2, ICD10: E78.2 - Control undetermined, due for labs - Continue current medications - Counseled on healthy diet and regular exercise 4. Congestive heart failure, unspecified HF chronicity, unspecified heart failure type (HCC) - ICD9: 428.0, ICD10: I50.9 5. Atherosclerosis of [place] coronary artery of [place] heart without angina pectoris - ICD9: 414.01, ICD10: I25.10 - Stable - Continue follow up with Cardiology - Stress test tomorrow - Continue current medications - Encouraged sodium restriction - Recommend regular aerobic exercise 6. Fatima's esophagus without dysplasia - ICD9: 530.85, ICD10: K22.70 7. Dysphagia, unspecified type - ICD9: 787.20, ICD10: R13.10 - CONSULT TO GENERAL SURGERY for EGD - CONSULT TO NUTRITION THERAPY 8. Gastroesophageal reflux disease, unspecified whether esophagitis present - ICD9: 530.81, ICD10: K21.9 - Continue Protonix - Discussed lifestyle modifications including losing weight, limiting caffeine, no meals three hours before sleep, and head of bed elevation - CONSULT TO NUTRITION THERAPY 9. Basal cell carcinoma (BCC), unspecified site - ICD9: 173.91, ICD10: C44.91 - Continue follow up with Dermatology as needed 10. Encounter for screening mammogram for breast cancer - ICD9: V76.12, ICD10: Z12.31 - MARY SCREENING W PADMINI 11. Abnormal urine odor - ICD9: 791.9, ICD10: R82.90 - Not currently present - UA DIP, URINE (POC) 12. Class 2 severe obesity due to excess calories with serious comorbidity and body mass index (BMI) of 37.0 to 37.9 in adult (HCC) - ICD9: 278.01, V85.37, ICD10: E66.812, E66.01, Z68.37 - Behavioral intervention - CONSULT TO NUTRITION THERAPY 13. Encounter for screening examination for other mental health and behavioral disorders - ICD9: V79.8, ICD10: Z13.39 - ANXIETY SCREENING negative Follow-up in 6 months. Return sooner as needed. Esteban Vázquez PA-C documented in this encounter [facility] 08-14-2024 Emergency department Triage note PT here for left shoulder and neck pain. Pt states pain has been going on for 3 weeks. PT feels like its pulling off her shoulder. Pt using icy hot, Voltaren jell, ice and heat rotation, and Biofreeze. Pt was out doing yard work 3 weeks ago. Pt ambulatory to room. Respirations easy and unlabored. Ambulatory to room. [facility] 08-14-2024 Emergency department Note PT here for left shoulder and neck pain. Pt states pain has been going on for 3 weeks. PT feels like its pulling off her shoulder. Pt using icy hot, Voltaren jell, ice and heat rotation, and Biofreeze. Pt was out doing yard work 3 weeks ago. Pt ambulatory to room. Respirations easy and unlabored. Ambulatory to room. Images from the original note were not included. [facility] HISTORY & PHYSICAL Date of ED Visit : 08/14/2024 Date of Service: 08/14/2024 PCP: Ralph Gibson DO Room: [address] CHIEF COMPLAINT: No chief complaint on file. HISTORY OF PRESENT ILLNESS Courtney Deng is a 73 y.o. female presented to The Emergency Department and was evaluated on 08/14/2024 for a chief complaint of left neck pain and left shoulder pain. Reports about 2 weeks ago she was helping a friend move some see progress think she felt a pop somewhere in her neck or shoulder, reports pain since that time. States there are times her left arm goes numb. PAST MEDICAL HISTORY has a past medical history of Fatima's esophagus, Cancer (HCC), Hypertension, and Myocardial infarction (HCC) (04/2020). PAST SURGICAL HISTORY has a past surgical history that includes fracture surgery (Left, 10/09/1999); TUBAL LIGATION (1985); Eye surgery (2014); lip biopsy; and ESOPHAGOGASTRODUODENOSCOPY WITH BIOPSY (N/A, 05/23/2022). 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) GRANT 1 Application, Does not apply, 3 TIMES DAILY Continuous Glucose Sensor (DEXCOM G7 SENSOR) MISC 1 Application, Does not apply, 3 TIMES DAILY PRN Continuous Glucose Sensor MISC 1 Application, Does not apply, EVERY 10 DAYS DIPHENHYDRAMINE-ACETAMINOPHEN PO Oral Dulaglutide (TRULICITY) 0.75 mg, Subcutaneous, EVERY 7 DAYS enalapril (VASOTEC) 10 mg, Oral, DAILY ezetimibe (ZETIA) 10 mg, Oral, DAILY ferrous gluconate (FERGON) 324 mg, Oral, 3 TIMES DAILY WITH MEALS fluconazole (DIFLUCAN) 150 mg, Oral, EVERY 72 HOURS furosemide (LASIX) 20 mg, Oral, DAILY glipiZIDE (GLUCOTROL) 5 mg, Oral, EVERY MORNING BEFORE BREAKFAST isosorbide mononitrate (IMDUR) 120 mg, Oral, EVERY MORNING Magnesium 500 MG TABS Oral, DAILY Melatonin 10 mg, Oral, NIGHTLY PRN nitroGLYCERIN (NITROSTAT) 0.4 MG SL tablet DISSOLVE 1 TABLET EVERY 5-15 MINUTES NEEDED FOR CHEST PAIN; DO NOT EXCEED 3 DOSES PER EPISODE pantoprazole (PROTONIX) 40 mg, Oral, BID Potassium 95 MG TABS 99 mLs, Oral, DAILY ranolazine (RANEXA) 500 mg, Oral, TWO TIMES A DAY Trulicity 0.75 mg, Subcutaneous, EVERY 7 DAYS ALLERGIES is allergic to atorvastatin, codeine, doxycycline, metformin, naproxen, nitrofurantoin, and benadryl allergy. REVIEW OF SYSTEMS Review of Systems Musculoskeletal: Positive for joint pain, myalgias and neck pain. PHYSICAL EXAM Vitals: There were no vitals taken for this visit. Physical Exam Vitals and nursing note reviewed. Constitutional: General: She is awake. She is not in acute distress. Appearance: She is not diaphoretic. HENT: Head: Normocephalic and atraumatic. Right Ear: Hearing, tympanic membrane, ear canal and external ear normal. Left Ear: Hearing, tympanic membrane, ear canal and external ear normal. Eyes: General: Right eye: No discharge. Left eye: No discharge. Extraocular Movements: Right eye: No nystagmus. Left eye: No nystagmus. Pupils: Pupils are equal, round, and reactive to light. Neck: Thyroid: No thyromegaly. Trachea: No tracheal deviation. Cardiovascular: Rate and Rhythm: Regular rhythm. Pulses: Radial pulses are 2+ on the right side and 2+ on the left side. Pulmonary: Effort: Pulmonary effort is normal. No respiratory distress. Breath sounds: No stridor. No wheezing. Abdominal: General: There is no distension. Palpations: Abdomen is soft. Tenderness: There is no abdominal tenderness. There is no guarding. Musculoskeletal: General: No deformity. Right shoulder: No tenderness. Normal range of motion. Left shoulder: Tenderness present. No swelling or deformity. Decreased range of motion. Arms: Cervical back: No edema, erythema, signs of trauma or rigidity. Spinous process tenderness and muscular tenderness present. Decreased range of motion. Comments: Tenderness to the AC joint, remainder of the arm is nontender, there is no erythema, no ecchymosis. No limited range of motion of the elbow or wrist. Muscle strength is 5/5 and equal to the right. Skin: General: Skin is warm and dry. Findings: No erythema. Neurological: Mental Status: She is alert and oriented to person, place, and time. She is not lethargic. Cranial Nerves: No cranial nerve deficit. Psychiatric: Mood and Affect: Mood normal. Behavior: Behavior is cooperative. Judgment: Judgment normal. MDM Medical Decision Making Patient is awake, alert, oriented is breathing easily here maintaining oxygen saturations greater than 95% on room air. Is not using any accessory muscles to breathe. Remains afebrile, not tachycardic, or tachypneic. The patient is nontoxic in appearance. Tenderness in the midline lower cervical spine is within to the left paraspinous musculature. Tenderness along the collarbone out to the AC joint, no erythema, no ecchymosis, no deformity. Sensation is intact in left upper extremity, muscle strength is 5/5 and equal to the right. She does however report intermittent numbness in her left arm. Reports pain is constant in her neck, assume degenerative changes or disc herniation , CT does show multiple degenerative changes in the cervical spine and the shoulder. Plan for analgesics, muscle relaxants and steroids at home. Follow-up with primary care as needed Risk OTC drugs. Prescription drug management. Differential Dx: Disc herniation, degenerative disc disease, cervical radiculopathy, shoulder sprain, strain, fracture, dislocation, AC joint separation. Plan: X-ray left shoulder, CT cervical spine, anti-inflammatories muscle relaxants. Cardiographics 08/14/2024 ECG Imaging XR Shoulder Left Min 2 Views (Routine) Final Result Degenerative joint disease with osseous demineralization and rotator cuff calcific tendinitis. No acute osseous injury. CT Cervical Spine Without IV Contrast Final Result 1. No acute cervical fracture or malalignment. 2. Mild degenerative changes in the cervical spine. No critical spinal canal foraminal stenosis. Lab Review Labs Reviewed - No data to display Findings: Procedures Diagnosis and Disposition: 1. Degeneration, intervertebral disc, cervical 2. Strain of neck muscle, initial encounter 3. Acute pain of left shoulder Note: I discussed present assessment(s), test results, and plan of care with patient. Additionally, all questions and concerns and return precautions discussed. Antonio Villalba APRN CNP 08/14/242009 Antonio Villalba APRN CNP 08/14/24 2011 documented in this encounter [facility] 08-14-2024 Physician Emergency department Note Images from the original note were not included. [facility] HISTORY & PHYSICAL Date of ED Visit : 08/14/2024 Date of Service: 08/14/2024 PCP: Ralph Gibson DO Room: [address] CHIEF COMPLAINT: No chief complaint on file. HISTORY OF PRESENT ILLNESS Courtney Deng is a 73 y.o. female presented to The Emergency Department and was evaluated on 08/14/2024 for a chief complaint of left neck pain and left shoulder pain. Reports about 2 weeks ago she was helping a friend move some see progress think she felt a pop somewhere in her neck or shoulder, reports pain since that time. States there are times her left arm goes numb. PAST MEDICAL HISTORY has a past medical history of Fatima's esophagus, Cancer (HCC), Hypertension, and Myocardial infarction (HCC) (04/2020). PAST SURGICAL HISTORY has a past surgical history that includes fracture surgery (Left, 10/09/1999); TUBAL LIGATION (1985); Eye surgery (2014); lip biopsy; and ESOPHAGOGASTRODUODENOSCOPY WITH BIOPSY (N/A, 05/23/2022). 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) GRANT 1 Application, Does not apply, 3 TIMES DAILY Continuous Glucose Sensor (DEXCOM G7 SENSOR) MISC 1 Application, Does not apply, 3 TIMES DAILY PRN Continuous Glucose Sensor MISC 1 Application, Does not apply, EVERY 10 DAYS DIPHENHYDRAMINE-ACETAMINOPHEN PO Oral Dulaglutide (TRULICITY) 0.75 mg, Subcutaneous, EVERY 7 DAYS enalapril (VASOTEC) 10 mg, Oral, DAILY ezetimibe (ZETIA) 10 mg, Oral, DAILY ferrous gluconate (FERGON) 324 mg, Oral, 3 TIMES DAILY WITH MEALS fluconazole (DIFLUCAN) 150 mg, Oral, EVERY 72 HOURS furosemide (LASIX) 20 mg, Oral, DAILY glipiZIDE (GLUCOTROL) 5 mg, Oral, EVERY MORNING BEFORE BREAKFAST isosorbide mononitrate (IMDUR) 120 mg, Oral, EVERY MORNING Magnesium 500 MG TABS Oral, DAILY Melatonin 10 mg, Oral, NIGHTLY PRN nitroGLYCERIN (NITROSTAT) 0.4 MG SL tablet DISSOLVE 1 TABLET EVERY 5-15 MINUTES NEEDED FOR CHEST PAIN; DO NOT EXCEED 3 DOSES PER EPISODE pantoprazole (PROTONIX) 40 mg, Oral, BID Potassium 95 MG TABS 99 mLs, Oral, DAILY ranolazine (RANEXA) 500 mg, Oral, TWO TIMES A DAY Trulicity 0.75 mg, Subcutaneous, EVERY 7 DAYS ALLERGIES is allergic to atorvastatin, codeine, doxycycline, metformin, naproxen, nitrofurantoin, and benadryl allergy. REVIEW OF SYSTEMS Review of Systems Musculoskeletal: Positive for joint pain, myalgias and neck pain. PHYSICAL EXAM Vitals: There were no vitals taken for this visit. Physical Exam Vitals and nursing note reviewed. Constitutional: General: She is awake. She is not in acute distress. Appearance: She is not diaphoretic. HENT: Head: Normocephalic and atraumatic. Right Ear: Hearing, tympanic membrane, ear canal and external ear normal. Left Ear: Hearing, tympanic membrane, ear canal and external ear normal. Eyes: General: Right eye: No discharge. Left eye: No discharge. Extraocular Movements: Right eye: No nystagmus. Left eye: No nystagmus. Pupils: Pupils are equal, round, and reactive to light. Neck: Thyroid: No thyromegaly. Trachea: No tracheal deviation. Cardiovascular: Rate and Rhythm: Regular rhythm. Pulses: Radial pulses are 2+ on the right side and 2+ on the left side. Pulmonary: Effort: Pulmonary effort is normal. No respiratory distress. Breath sounds: No stridor. No wheezing. Abdominal: General: There is no distension. Palpations: Abdomen is soft. Tenderness: There is no abdominal tenderness. There is no guarding. Musculoskeletal: General: No deformity. Right shoulder: No tenderness. Normal range of motion. Left shoulder: Tenderness present. No swelling or deformity. Decreased range of motion. Arms: Cervical back: No edema, erythema, signs of trauma or rigidity. Spinous process tenderness and muscular tenderness present. Decreased range of motion. Comments: Tenderness to the AC joint, remainder of the arm is nontender, there is no erythema, no ecchymosis. No limited range of motion of the elbow or wrist. Muscle strength is 5/5 and equal to the right. Skin: General: Skin is warm and dry. Findings: No erythema. Neurological: Mental Status: She is alert and oriented to person, place, and time. She is not lethargic. Cranial Nerves: No cranial nerve deficit. Psychiatric: Mood and Affect: Mood normal. Behavior: Behavior is cooperative. Judgment: Judgment normal. MDM Medical Decision Making Patient is awake, alert, oriented is breathing easily here maintaining oxygen saturations greater than 95% on room air. Is not using any accessory muscles to breathe. Remains afebrile, not tachycardic, or tachypneic. The patient is nontoxic in appearance. Tenderness in the midline lower cervical spine is within to the left paraspinous musculature. Tenderness along the collarbone out to the AC joint, no erythema, no ecchymosis, no deformity. Sensation is intact in left upper extremity, muscle strength is 5/5 and equal to the right. She does however report intermittent numbness in her left arm. Reports pain is constant in her neck, assume degenerative changes or disc herniation , CT does show multiple degenerative changes in the cervical spine and the shoulder. Plan for analgesics, muscle relaxants and steroids at home. Follow-up with primary care as needed Risk OTC drugs. Prescription drug management. Differential Dx: Disc herniation, degenerative disc disease, cervical radiculopathy, shoulder sprain, strain, fracture, dislocation, AC joint separation. Plan: X-ray left shoulder, CT cervical spine, anti-inflammatories muscle relaxants. Cardiographics 08/14/2024 ECG Imaging XR Shoulder Left Min 2 Views (Routine) Final Result Degenerative joint disease with osseous demineralization and rotator cuff calcific tendinitis. No acute osseous injury. CT Cervical Spine Without IV Contrast Final Result 1. No acute cervical fracture or malalignment. 2. Mild degenerative changes in the cervical spine. No critical spinal canal foraminal stenosis. Lab Review Labs Reviewed - No data to display Findings: Procedures Diagnosis and Disposition: 1. Degeneration, intervertebral disc, cervical 2. Strain of neck muscle, initial encounter 3. Acute pain of left shoulder Note: I discussed present assessment(s), test results, and plan of care with patient. Additionally, all questions and concerns and return precautions discussed. Antonio Villalba APRN CNP 08/14/242009 Antonio Villalba APRN CNP 08/14/242010 [facility] 07-25-2024 Telephone encounter Note Called and left message for patient to call back. Received letter back from Cardiology. Patient is to hold Plavix for 5 days prior to procedure, resume after and continue the Aspirin. Copy of letter sent to [facility] through [employer]. Fadumo Avina LPN [facility] 07-25-2024 Miscellaneous Notes Called and left message for patient to call back. Received letter back from Cardiology. Patient is to hold Plavix for 5 days prior to procedure, resume after and continue the Aspirin. Copy of letter sent to [facility] through [employer]. Fadumo Avina LPN documented in this encounter [facility] 07-23-2024 Telephone encounter Note Printed last office visit, echo and stress test from [facility]. Fax request sent to [facility] for the EKG rhythm strip. Fadumo Avina LPN [facility] 07-23-2024 Miscellaneous Notes Printed last office visit, echo and stress test from [facility]. Fax request sent to [facility] for the EKG rhythm strip. Fadumo Avina LPN Please request last cardiac OV and testing from [facility] [place]. DOS 07/29/2024 documented in this encounter [facility] 07-23-2024 Telephone encounter Note Please request last cardiac OV and testing from [facility] [place]. DOS 07/29/2024 [facility] 07-22-2024 Instructions Latisha Calabrese [email or web address].[email or web address] - 07/22/2024 11:02 AM EDT Images from the original note were not included. [facility] PATIENT PREOPERATIVE INSTRUCTIONS No ref. provider found has scheduled you for your procedure at this surgery center: [facility] [place] Scheduling Office: [phone] --[address] [place] [address]. Please read below carefully for your personalized instructions. Dietary Restrictions: - No solid food after midnight. - You may have 12 ounces of clear liquids (water, clear juices such as apple juice or gatorade, carbonated beverages, clear tea, black coffee, jello) until 2 hours before scheduled arrival at facility. No red/purple coloring and no creamer/sugar Medications: Unless instructed differently below, stay on all of your medications until your surgery. If you start any new medications after today's visit, please contact your surgeon. Pre-Surgery Med Instructions Medication Instructions aspirin, enteric coated (ASPIRIN, ENTERIC COATED) 81 mg EC tablet Take the day of surgery with a small sip of water clopidogrel (PLAVIX) 75 mg tablet Stop 5 days before surgery DULAGLUTIDE SUBCUTANEOUS Stop 7 days before surgery enalapril (VASOTEC) 10 mg tablet Do not take the day of surgery ezetimibe (ZETIA) 10 mg tablet Take the day of surgery with a small sip of water glipiZIDE (GLUCOTROL) 5 mg tablet Do not take the day of surgery nitroglycerin sublingual (NITROQUICK) 0.4 mg SL tablet IF needed POTASSIUM-99 ORAL Take the day of surgery with a small sip of water [id number] ORAL Stop 7 days before surgery atenolol (TENORMIN) 100 mg tablet Take the day of surgery with a small sip of water Cholecalciferol, Vitamin D3, 50 mcg (2,000 unit) cap Stop 7 days before surgery Ferrous Gluconate (FERGON) 324 mg (38 mg iron) tablet Stop 7 days before surgery pantoprazole DR (PROTONIX) 40 mg tablet Take the day of surgery with a small sip of water ranolazine ER (RANEXA) 500 mg 12 hr tablet Take the day of surgery with a small sip of water furosemide (LASIX) 20 mg tablet Do not take the day of surgery isosorbide mononitrate ER (IMDUR) 60 mg 24 hr tablet Take the day of surgery with a small sip of water Magnesium 250 mg tab Stop 7 days before surgery If you start any new medications after today's visit, please contact the surgeon's office. Blood Thinning Medications: - Stop NSAIDS (Ibuprofen, Advil, Aleve, Motrin, Celebrex, Mobic, etc.) 7 days before surgery, as directed by your surgeon. - Stop Plavix 5 days before surgery or as directed by physician. - Do NOT stop aspirin or other anticoagulants without consulting with your custodial supervisor or prescribing physician. - Stop Vitamin E, ALL multi-vitamins, herbals and dietary supplements 7 days before surgery. - You may take Tylenol (Acetaminophen) or any of your pain medications that do not contain aspirin or NSAIDS as needed. Important Reminders: - Candy, mints, and tobacco products are NOT permitted the morning of surgery. - Hearing aids, dentures and glasses may be worn the morning of surgery. - NO jewelry, body piercings, makeup, hairpins or contacts are to be worn the day of surgery. If you develop symptoms such as a fever, cold, or flu, or have other changes to your health within TWO DAYS of scheduled surgery or the morning of surgery, please contact the surgery center above. Personal Belongings: -Please have photo ID and insurance cards. -If you do not have a copy of advance directives on file with us, please bring a copy with you on the day of surgery. - Leave ALL valuables and money at home or with family members. For Outpatient Procedures: - YOU MUST HAVE A RESPONSIBLE RED MUD THICKENER OPERATOR TAKE YOU HOME. A SHANK SKINNER OR LATENT PRINT EXAMINER CANNOT BE MADE A RESPONSIBLE RED MUD THICKENER OPERATOR. - We recommend that a responsible person stays with you overnight to take care of you. - You cannot stay in a hotel alone after outpatient surgery. You will not be permitted to have your surgery, if you do not have someone to take care of you. Arrival Time for Surgery: - To obtain your arrival time for surgery, call your physician's office the day before your surgery. - If your surgery is scheduled for Sunday, call the Sunday before. Your surgeon s certified bench jeweler technician will tell you what time to call the office. - If you have not reached the departmental certified bench jeweler technician by 5 P.M., call [phone] after 5 P.M. the day before your surgery. Please be aware that emergency situations arise, which may delay or change your surgical time. If this happens, we will notify you as soon as possible and regret any inconvenience. If you already have an Advance Directive, please fax a copy to [phone] or email to for it to be added to your chart. If you do not have an Advance Directive, you can find the appropriate form and more information at [email or web address]. We recommend that you complete the Advance Directive form found on the website and bring it with you the day of your surgery. It can be witnessed and scanned into your chart that day. Latisha Calabrese APRN.ABIGAIL documented in this encounter [facility] 07-22-2024 History and physical note Images from the original note were not included. 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 Denies CP, palpitations, sob, new or worsening cardiac symptoms. 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 Reviewed to hold injectable 7 FULL days prior to upcoming procedure, pt verbalized understanding. Last A1c 6.7 07/11/2024 in C/E Obesity, unspecified Assessment: Body mass index is 37.79 kg/m . Angina pectoris, unspecified (HCC) Assessment: following cardiology, controlled on rx, last OV requested BCC (basal cell carcinoma of skin) Assessment: s/p excision CHF (congestive heart failure) (HCC) Assessment: controlled on rx, following cardiology, last OV requested Aly Activity Status Index: METS: Climb a flight of stairs or walk up a hill (5.50 METs) DASI Score: 5.5 Patient denies any chest pain or undue shortness of breath with the above physical activity. Clinical Frailty Scale: 3. Well, with treated comorbid disease STOP-Bang Score: Snores loudly Has or is being treated for high blood pressure BMI greater than 35 kg/m^2 Patient over 50 years old Has a large neck Denies feeling tired, fatigued, or sleepy during the daytime Has not been observed to stop breathing or choking/gasping during sleep Non-male patient STOP-Bang Score: 5 [id number] Score: Age: 65-74 Sex: female CHF history: Yes Hypertension history: Yes Stroke/TIA/thromboembolism history: No Vascular disease history: Yes Diabetes history: Yes [id number] Score: 6 ANESTHESIA FINDINGS: Intubation History: No history of difficult intubation Significant Anesthesia Considerations: none Airway History: No history of difficult airway I - PHYSICAL EVALUATION AIRWAY Patient intubated: No. Tracheostomy tube not present Mallampati: I. TM distance: >3 FB. Neck ROM: full ROM without neurological symptoms. Mouth opening: adequate. Short neck: no. Thick neck: yes Ernst present: no Lip Bite Test: I Microretrognathia/Micronagthia/Recesse d Chin: No DENTAL Dental findings: teeth intact. II - ANESTHESIA PLAN Anesthetic Plan: other Beta Carlos Manuel Monitoring Plan Post Procedure Analgesic Plan Prepared for Surgery: optimally prepared for surgery, pending [see comment]. Records requested from [facility] [place] CONSULTS: Patient does not require consults for optimization at this time Planned Anesthetic: other anesthesia choice The Following Tests/Procedures Have Been Initiated: Orders Placed This Encounter aspirin, enteric coated (ASPIRIN, ENTERIC COATED) 81 mg EC tablet Sig: Take 1 tablet by mouth once daily. clopidogrel (PLAVIX) 75 mg tablet Sig: Take 1 tablet by mouth once daily. DULAGLUTIDE SUBCUTANEOUS Sig: Inject 0.75 mg subcutaneously one time a week. enalapril (VASOTEC) 10 mg tablet Sig: Take 1 tablet by mouth once daily. ezetimibe (ZETIA) 10 mg tablet Sig: Take 1 tablet by mouth once daily. glipiZIDE (GLUCOTROL) 5 mg tablet Sig: Take 5 mg by mouth. nitroglycerin sublingual (NITROQUICK) 0.4 mg SL tablet Sig: DISSOLVE 1 TABLET EVERY 5-15 MINUTES NEEDED FOR CHEST PAIN; DO NOT EXCEED 3 DOSES PER EPISODE DISCONTD: omeprazole (PRILOSEC) 20 mg capsule Sig: Take 20 mg by mouth. POTASSIUM-99 ORAL Sig: Take by mouth. [id number] ORAL Sig: Take by mouth. This is a virtual visit using Postcard on the Run video visit. It required patient-provider interaction for the medical decision making as documented below. REASON FOR VISIT: Courtney Deng is a 73 year old female who is scheduled for * No surgery found * at the request of @[email or web address]@ for consultation. My final recommendation will be communicated back to the requesting physician by way of shared medical record or letter. Subjective The patient has the following: COVID-19 Immunization Status Overdue - Covid-19 Vaccine ( season) Overdue since 06/08/2024 12/30/2020 Imm Admin: COVID-19 original vaccine, full dose, monovalent (MODERNA) 12/03/2020 Imm Admin: COVID-19 original vaccine, full dose, monovalent (MODERNA) CHIEF COMPLAINT: Pre-op exam HPI: Courtney Deng is a 73 year old seen for PAC due to scheduled above surgery because of Fatima's esophagus. 06/18/24, Dr.Vargo Valdez Linda Deng is a 73-year-old female who is being seen in follow up. She was originally seen in July 2022 for Fatima's esophagus with low grade dysplasia. 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 Recommendations at that time were for another upper endoscopy in six months. We also recommended elevating the head of the bed and utilizing pantoprazole 30 milligrams before breakfast and supper. Review of the photos obtained during the [facility] endoscopy revealed [place] C0M2 Fatima's esophagus. This is a virtual visit. The visit was conducted using Postcard on the Run video visit. It required patient-provider interaction for the medical decision making as documented below. I have communicated my name and active licensure. The patient's identity and physical location were verified at the time of this visit. Either the patient or their legal underwriting account representative has been informed of the risks and benefits of and alternatives to treatment through a remote evaluation and consents to proceed with the evaluation remotely. REVIEW OF SYSTEMS: General: No weight loss, malaise or fevers. Neurological: No history of TIA's, stroke, SHINGLE GRADER tumor, impaired sensorium, hemiplegia, paraplegia or quadraplegia. No neurological symptoms or problems. Respiratory: No history of current cough or dyspnea, or pneumonia in the past 6 weeks. No history of respiratory/pulmonary symptoms or problems. Cardiovascular: Positive for: anticoagulation therapy (Plavix and ASA), CAD, CHF, hyperlipidemia and hypertension Patient's last office visit with custodial supervisor, ADRY, The following tests and/or procedures were performed: cardiac stents. Negative for: abdominal aortic aneurysm, AICD/PPM, angina, arrhythmia, atrial fibrillation, chest pain, congenital heart defect, DVT/PE, recent [place], murmur/valvular heart disease, PVD, open heart surgery and valve surgery. GI: See HPI. +diarrhea, otc rx as needed Positive for: dysphagia and GERD (on rx) Negative for: abdominal pain, hepatitis, irritable bowel syndrome, inflammatory bowel disease, liver disease, nausea, pancreatitis, vomiting and ETOH >2 drinks/day. : No history of dysuria, frequency or incontinence, stones or chronic kidney disease. No difficulty urinating, nocturia > 1 time per night or hematuria. 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 Endocrine: Positive for: diabetes mellitus. Patient's diabetes mellitus is controlled by oral agents and weekly injectable. Negative for: hypothyroidism. Hematology: Positive for: anemia, iron deficiency anemia, bruises/bleeds easily and chronic anti-coagulation/platelet meds. Patient is on anti-coagulation/platelet medication(s): Aspirin and Plavix. Negative for: transfusion of at least 4 units within 72 hours prior to surgery. Oncology: BCC s/p excision Psych: Positive for: anxiety (no rx). Musculoskeletal: Positive for: back pain and joint pain. Skin: Negative for lesions, rash and itching. 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 09/21/2021 Congestive heart failure (HCC) Hypertension Type 2 diabetes mellitus without complication (HCC) 02/12/2020 PAST SURGICAL HISTORY Procedure Laterality Date EGD W/O BRSH SPEC VARICIES INJ PRQ CARDIAC STENT W/ANGIO 1 VSL FAMILY HISTORY Problem Relation Age of Onset Malig Hyperthermia No Family History Social History Tobacco Use Smoking status: Never Smokeless tobacco: Never Substance Use Topics Alcohol use: Never Drug use: Never Prior to Admission medications as of 07/23/24 1010 Medication Sig Last Dose Taking aspirin, enteric coated (ASPIRIN, ENTERIC COATED) 81 mg EC tablet Take 1 tablet by mouth once daily. Taking Yes clopidogrel (PLAVIX) 75 mg tablet Take 1 tablet by mouth once daily. Taking Yes DULAGLUTIDE SUBCUTANEOUS Inject 0.75 mg subcutaneously one time a week. Taking Yes enalapril (VASOTEC) 10 mg tablet Take 1 tablet by mouth once daily. Taking Yes ezetimibe (ZETIA) 10 mg tablet Take 1 tablet by mouth once daily. Taking Yes glipiZIDE (GLUCOTROL) 5 mg tablet Take 5 mg by mouth. Taking Yes nitroglycerin sublingual (NITROQUICK) 0.4 mg SL tablet DISSOLVE 1 TABLET EVERY 5-15 MINUTES NEEDED FOR CHEST PAIN; DO NOT EXCEED 3 DOSES PER EPISODE Taking Yes POTASSIUM-99 ORAL Take by mouth. Taking Yes [id number] ORAL Take by mouth. Taking Yes atenolol (TENORMIN) 100 mg tablet TAKE 1/2 (ONE-HALF) TABLET BY MOUTH ONCE DAILY Taking Yes Cholecalciferol, Vitamin D3, 50 mcg (2,000 unit) cap Take 1 capsule by mouth once daily. Taking Yes Ferrous Gluconate (FERGON) 324 mg (38 mg iron) tablet Take 324 mg by mouth three times daily. Taking Yes pantoprazole DR (PROTONIX) 40 mg tablet Take 40 mg by mouth once daily. Taking Yes ranolazine ER (RANEXA) 500 mg 12 hr tablet Take 1 tablet by mouth twice daily. Taking Yes furosemide (LASIX) 20 mg tablet Take 1 tablet by mouth once daily. Taking Yes isosorbide mononitrate ER (IMDUR) 60 mg 24 hr tablet Take 60 mg by mouth twice daily. Taking Yes Magnesium 250 mg tab Take 250 mg by mouth once daily. Taking Yes No medication comments found. ALLERGIES Allergen Reactions Atorvastatin Unknown Codeine Unknown, GI Upset Metformin Unknown Naproxen GI Upset, Vomiting Nitrofurantoin Unknown Increased BP Benadryl Allergy De* GI Upset High does made her sick to her stomach Objective PHYSICAL EXAM: (if completed, exam performed via video enabled technology) General: alert and oriented (x3), healthy appearance and obese. Skin: normal color, no rash or lesions. HEENT: EOM intact and pupils equal round. Cardiovascular: Self palpated radial pulse regular. Respiratory: Non-labored breathing. Abdomen: soft. Pertinent negatives noted - not tender. Extremities: no deformity, no edema or tenderness, no joint swelling or clubbing. Neurological: normal cognition and motor skills. Gait normal. No weakness or sensory deficit. PAIN ASSESSMENT: VITALS: Ht 5' 1 (1.55m) Wt 200 lb (90.7kg) BMI 37.81 kg/(m^2). Diagnostic tests reviewed for today's visit: Lab Value Units Date High Low HB No results within date range. HCT No results within date range. WBC No results within date range. PLT No results within date range. NA No results within date range. K No results within date range. GLUC No results within date range. BUN No results within date range. CREAT No results within date range. PTSEC No results within date range. INR No results within date range. APTT No results within date range. ALT No results within date range. AST No results within date range. TBILI No results within date range. TSH No results within date range. Lab Value Units Date High Low HCGQT No results within date range. UHCG No results within date range. HCG, BODY* No results within date range. Lab Value Units Date High Low ABORHD No results within date range. ABSCREEN No results within date range. No results found for: HBA1C No results found for this or any previous visit (from the past 8760 hour(s)). No results found for this or any previous visit (from the past 37013 hour(s)). Instructions Given to Patient: Instructions located in the after visit summary. Patient given verbal and written preop instructions and voices comprehension and compliance. SIGNATURE: Latisha Calabrese APRN.CNP PATIENT NAME: Courtney Deng DATE: July 22, 2024 TIME: 11:00 AM PAGER/CONTACT #: [facility] 07-22-2024 History and physical note Images from the original note were not included. 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 Denies CP, palpitations, sob, new or worsening cardiac symptoms. 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 Reviewed to hold injectable 7 FULL days prior to upcoming procedure, pt verbalized understanding. Last A1c 6.7 07/11/2024 in C/E Obesity, unspecified Assessment: Body mass index is 37.79 kg/m . Angina pectoris, unspecified (HCC) Assessment: following cardiology, controlled on rx, last OV requested BCC (basal cell carcinoma of skin) Assessment: s/p excision CHF (congestive heart failure) (HCC) Assessment: controlled on rx, following cardiology, last OV requested Aly Activity Status Index: METS: Climb a flight of stairs or walk up a hill (5.50 METs) DASI Score: 5.5 Patient denies any chest pain or undue shortness of breath with the above physical activity. Clinical Frailty Scale: 3. Well, with treated comorbid disease STOP-Bang Score: Jermain loudly Has or is being treated for high blood pressure BMI greater than 35 kg/m^2 Patient over 50 years old Has a large neck Denies feeling tired, fatigued, or sleepy during the daytime Has not been observed to stop breathing or choking/gasping during sleep Non-male patient STOP-Bang Score: 5 [id number] Score: Age: 65-74 Sex: female CHF history: Yes Hypertension history: Yes Stroke/TIA/thromboembolism history: No Vascular disease history: Yes Diabetes history: Yes [id number] Score: 6 ANESTHESIA FINDINGS: Intubation History: No history of difficult intubation Significant Anesthesia Considerations: none Airway History: No history of difficult airway I - PHYSICAL EVALUATION AIRWAY Patient intubated: No. Tracheostomy tube not present Mallampati: I. TM distance: >3 FB. Neck ROM: full ROM without neurological symptoms. Mouth opening: adequate. Short neck: no. Thick neck: yes Ernst present: no Lip Bite Test: I Microretrognathia/Micronagthia/Recesse d Chin: No DENTAL Dental findings: teeth intact. II - ANESTHESIA PLAN Anesthetic Plan: other Beta Carlos Manuel Monitoring Plan Post Procedure Analgesic Plan Prepared for Surgery: optimally prepared for surgery, pending [see comment]. Records requested from [facility] [place] CONSULTS: Patient does not require consults for optimization at this time Planned Anesthetic: other anesthesia choice The Following Tests/Procedures Have Been Initiated: Orders Placed This Encounter aspirin, enteric coated (ASPIRIN, ENTERIC COATED) 81 mg EC tablet Sig: Take 1 tablet by mouth once daily. clopidogrel (PLAVIX) 75 mg tablet Sig: Take 1 tablet by mouth once daily. DULAGLUTIDE SUBCUTANEOUS Sig: Inject 0.75 mg subcutaneously one time a week. enalapril (VASOTEC) 10 mg tablet Sig: Take 1 tablet by mouth once daily. ezetimibe (ZETIA) 10 mg tablet Sig: Take 1 tablet by mouth once daily. glipiZIDE (GLUCOTROL) 5 mg tablet Sig: Take 5 mg by mouth. nitroglycerin sublingual (NITROQUICK) 0.4 mg SL tablet Sig: DISSOLVE 1 TABLET EVERY 5-15 MINUTES NEEDED FOR CHEST PAIN; DO NOT EXCEED 3 DOSES PER EPISODE DISCONTD: omeprazole (PRILOSEC) 20 mg capsule Sig: Take 20 mg by mouth. POTASSIUM-99 ORAL Sig: Take by mouth. [id number] ORAL Sig: Take by mouth. This is a virtual visit using Postcard on the Run video visit. It required patient-provider interaction for the medical decision making as documented below. REASON FOR VISIT: Courtney Deng is a 73 year old female who is scheduled for * No surgery found * at the request of DrFabi @[email or web address]@ for consultation. My final recommendation will be communicated back to the requesting physician by way of shared medical record or letter. Subjective The patient has the following: COVID-19 Immunization Status Overdue - Covid-19 Vaccine () Overdue since 06/08/2024 12/30/2020 Imm Admin: COVID-19 original vaccine, full dose, monovalent (MODERNA) 12/03/2020 Imm Admin: COVID-19 original vaccine, full dose, monovalent (MODERNA) CHIEF COMPLAINT: Pre-op exam HPI: Courtney Deng is a 73 year old seen for PAC due to scheduled above surgery because of Fatima's esophagus. 06/18/24, Courtney Linda Deng is a 73-year-old female who is being seen in follow up. She was originally seen in July 2022 for Fatima's esophagus with low grade dysplasia. 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 Recommendations at that time were for another upper endoscopy in six months. We also recommended elevating the head of the bed and utilizing pantoprazole 30 milligrams before breakfast and supper. Review of the photos obtained during the [facility] endoscopy revealed [place] C0M2 Fatima's esophagus. This is a virtual visit. The visit was conducted using Postcard on the Run video visit. It required patient-provider interaction for the medical decision making as documented below. I have communicated my name and active licensure. The patient's identity and physical location were verified at the time of this visit. Either the patient or their legal underwriting account representative has been informed of the risks and benefits of and alternatives to treatment through a remote evaluation and consents to proceed with the evaluation remotely. REVIEW OF SYSTEMS: General: No weight loss, malaise or fevers. Neurological: No history of TIA's, stroke, SHINGLE GRADER tumor, impaired sensorium, hemiplegia, paraplegia or quadraplegia. No neurological symptoms or problems. Respiratory: No history of current cough or dyspnea, or pneumonia in the past 6 weeks. No history of respiratory/pulmonary symptoms or problems. Cardiovascular: Positive for: anticoagulation therapy (Plavix and ASA), CAD, CHF, hyperlipidemia and hypertension Patient's last office visit with custodial supervisor, ADRY, The following tests and/or procedures were performed: cardiac stents. Negative for: abdominal aortic aneurysm, AICD/PPM, angina, arrhythmia, atrial fibrillation, chest pain, congenital heart defect, DVT/PE, recent [place], murmur/valvular heart disease, PVD, open heart surgery and valve surgery. GI: See HPI. +diarrhea, otc rx as needed Positive for: dysphagia and GERD (on rx) Negative for: abdominal pain, hepatitis, irritable bowel syndrome, inflammatory bowel disease, liver disease, nausea, pancreatitis, vomiting and ETOH >2 drinks/day. : No history of dysuria, frequency or incontinence, stones or chronic kidney disease. No difficulty urinating, nocturia > 1 time per night or hematuria. 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 Endocrine: Positive for: diabetes mellitus. Patient's diabetes mellitus is controlled by oral agents and weekly injectable. Negative for: hypothyroidism. Hematology: Positive for: anemia, iron deficiency anemia, bruises/bleeds easily and chronic anti-coagulation/platelet meds. Patient is on anti-coagulation/platelet medication(s): Aspirin and Plavix. Negative for: transfusion of at least 4 units within 72 hours prior to surgery. Oncology: BCC s/p excision Psych: Positive for: anxiety (no rx). Musculoskeletal: Positive for: back pain and joint pain. Skin: Negative for lesions, rash and itching. 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 SPEC VARICIES INJ PRQ CARDIAC STENT W/ANGIO 1 VSL FAMILY HISTORY Problem Relation Age of Onset Malig Hyperthermia No Family History Social History Tobacco Use Smoking status: Never Smokeless tobacco: Never Substance Use Topics Alcohol use: Never Drug use: Never Prior to Admission medications as of 07/23/24 1010 Medication Sig Last Dose Taking aspirin, enteric coated (ASPIRIN, ENTERIC COATED) 81 mg EC tablet Take 1 tablet by mouth once daily. Taking Yes clopidogrel (PLAVIX) 75 mg tablet Take 1 tablet by mouth once daily. Taking Yes DULAGLUTIDE SUBCUTANEOUS Inject 0.75 mg subcutaneously one time a week. Taking Yes enalapril (VASOTEC) 10 mg tablet Take 1 tablet by mouth once daily. Taking Yes ezetimibe (ZETIA) 10 mg tablet Take 1 tablet by mouth once daily. Taking Yes glipiZIDE (GLUCOTROL) 5 mg tablet Take 5 mg by mouth. Taking Yes nitroglycerin sublingual (NITROQUICK) 0.4 mg SL tablet DISSOLVE 1 TABLET EVERY 5-15 MINUTES NEEDED FOR CHEST PAIN; DO NOT EXCEED 3 DOSES PER EPISODE Taking Yes POTASSIUM-99 ORAL Take by mouth. Taking Yes [id number] ORAL Take by mouth. Taking Yes atenolol (TENORMIN) 100 mg tablet TAKE 1/2 (ONE-HALF) TABLET BY MOUTH ONCE DAILY Taking Yes Cholecalciferol, Vitamin D3, 50 mcg (2,000 unit) cap Take 1 capsule by mouth once daily. Taking Yes Ferrous Gluconate (FERGON) 324 mg (38 mg iron) tablet Take 324 mg by mouth three times daily. Taking Yes pantoprazole DR (PROTONIX) 40 mg tablet Take 40 mg by mouth once daily. Taking Yes ranolazine ER (RANEXA) 500 mg 12 hr tablet Take 1 tablet by mouth twice daily. Taking Yes furosemide (LASIX) 20 mg tablet Take 1 tablet by mouth once daily. Taking Yes isosorbide mononitrate ER (IMDUR) 60 mg 24 hr tablet Take 60 mg by mouth twice daily. Taking Yes Magnesium 250 mg tab Take 250 mg by mouth once daily. Taking Yes No medication comments found. ALLERGIES Allergen Reactions Atorvastatin Unknown Codeine Unknown, GI Upset Metformin Unknown Naproxen GI Upset, Vomiting Nitrofurantoin Unknown Increased BP Benadryl Allergy De* GI Upset High does made her sick to her stomach Objective PHYSICAL EXAM: (if completed, exam performed via video enabled technology) General: alert and oriented (x3), healthy appearance and obese. Skin: normal color, no rash or lesions. HEENT: EOM intact and pupils equal round. Cardiovascular: Self palpated radial pulse regular. Respiratory: Non-labored breathing. Abdomen: soft. Pertinent negatives noted - not tender. Extremities: no deformity, no edema or tenderness, no joint swelling or clubbing. Neurological: normal cognition and motor skills. Gait normal. No weakness or sensory deficit. PAIN ASSESSMENT: VITALS: Ht 5' 1 (1.55m) Wt 200 lb (90.7kg) BMI 37.81 kg/(m^2). Diagnostic tests reviewed for today's visit: Lab Value Units Date High Low HB No results within date range. HCT No results within date range. WBC No results within date range. PLT No results within date range. NA No results within date range. K No results within date range. GLUC No results within date range. BUN No results within date range. CREAT No results within date range. PTSEC No results within date range. INR No results within date range. APTT No results within date range. ALT No results within date range. AST No results within date range. TBILI No results within date range. TSH No results within date range. Lab Value Units Date High Low HCGQT No results within date range. UHCG No results within date range. HCG, BODY* No results within date range. Lab Value Units Date High Low ABORHD No results within date range. ABSCREEN No results within date range. No results found for: HBA1C No results found for this or any previous visit (from the past 8760 hour(s)). No results found for this or any previous visit (from the past 95592 hour(s)). Instructions Given to Patient: Instructions located in the after visit summary. Patient given verbal and written preop instructions and voices comprehension and compliance. SIGNATURE: Latisha Calabrese APRN.CNP PATIENT NAME: Courtney Deng DATE: July 22, 2024 TIME: 11:00 AM PAGER/CONTACT #: documented in this encounter [facility] 06-18-2024 History of Present illness Narrative VIRTUAL VISIT PROGRESS NOTE This is a virtual visit using Postcard on the Run Zoom Video Visit. It required patient-provider interaction for the medical decision making as documented below. I have communicated my name and active licensure. The patient's identity and physical location were verified at the time of this visit. Either the patient or their legal underwriting account representative has been informed of the risks and benefits of -- and alternatives to -- treatment through a remote evaluation and consents to proceed with the evaluation remotely. Courtney Deng is a 73-year-old female who is being seen in follow up. She was originally seen in July 2022 for Fatima s esophagus with low grade dysplasia. 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 Recommendations at that time were for another upper endoscopy in six months. We also recommended elevating the head of the bed and utilizing pantoprazole 30 milligrams before breakfast and supper. Review of the photos obtained during the [facility] endoscopy revealed [place] C0M2 Fatima s esophagus. Presently Doing well - lost her in February 2024 Hx of Barretts esophagus Taking Pantoprazole - BID AM/PM -no heartburn - no reflux Does have some dysphagia - with meats this has been going on for 2 weeks now she has had some dysphagia off and on No dysphagia with liquids Hamburger - gives her trouble mainly Bread is ok Weight is stable She is a diabetic currently taking Glipizide - FARXIGA Currently - UTI [place] - 2019 and three stents - EKG - stress test - year ago - passed She admits to some chest pressure off and on for several years - is not following up with Cardiology until August 2024 HISTORY REVIEWED (electronic chart updated): PAST MEDICAL HISTORY No date: Congestive heart failure (HCC) No date: Hypertension No past surgical history on file. No family history on file. Social History Tobacco Use Smoking status: Never Smokeless tobacco: Never Substance Use Topics Alcohol use: Never Drug use: Never Current Outpatient Medications Medication Sig atenolol (TENORMIN) 100 mg tablet TAKE 1/2 (ONE-HALF) TABLET BY MOUTH ONCE DAILY Cholecalciferol, Vitamin D3, 50 mcg (2,000 unit) cap Take 1 capsule by mouth once daily. Ferrous Gluconate (FERGON) 324 mg (38 mg iron) tablet Take 324 mg by mouth three times daily. pantoprazole DR (PROTONIX) 40 mg tablet Take 40 mg by mouth once daily. ranolazine ER (RANEXA) 500 mg 12 hr tablet Take 1 tablet by mouth twice daily. furosemide (LASIX) 20 mg tablet Take 1 tablet by mouth once daily. isosorbide mononitrate ER (IMDUR) 60 mg 24 hr tablet Take 60 mg by mouth twice daily. Magnesium 250 mg tab Take 250 mg by mouth once daily. calcium carbonate/vitamin D3 (CALCIUM 600 + D ORAL) Take 1 tablet by mouth once daily. No current facility-administered medications for this visit. ALLERGIES Allergen Reactions Atorvastatin Unknown Codeine Unknown, GI Upset Metformin Unknown Naproxen GI Upset, Vomiting Nitrofurantoin Unknown Increased BP Benadryl Allergy De* GI Upset High does made her sick to her stomach REVIEW OF SYSTEMS: GENERAL: feeling well without fatigue, no recent change in weight ASSESSMENT / PLAN Currently noting episodes of chest pain which is stable. She is on a long acting nitrate. By report, she underwent a stress test one year ago which was normal. She is noting a2 week history of solid food dysphasia. There is no liquid component. There is no pyrosis or regurgitation but she does note a burning sensation in the gastric region. She underwent an upper endoscopy under monitored anesthesia care two years ago at our institution without difficulty. At this point we are recommending the following: #1 follow up with her local custodial supervisor in two weeks with an EKG. #2: PACC clearance #3 following the above will arrange for an upper endoscopy with possible dilation under monitored anesthesia care There are no Patient Instructions on file for this visit. I spent a total of 25 minutes on the date of the service which included preparing to see the patient and [id number] patient care Answers submitted by the patient for this visit: Review of Systems Gastroenterology (Submitted on 06/18/2024) Fever: No Chills: No Night Sweats: No Unitentional Weight Change: No A Cough: No Difficulty Breathing: Yes Chest Pain: Yes Belly pain: Yes A feeling of fullness or have belly pain after eating: Yes Food getting stuck in your throat or chest after eating: Yes Nausea - that is, a feeling like you could vomit: Yes Regurgitation - that is, food or liquid coming back up into your throat or mouth without vomiting, or feel burning behind your breast bone: No Loss of appetite: No To throw up or vomit: No Black tarry stools: No Loose or watery stools: Yes The feeling like you need to empty your bowels right away - that is, feel as if you would have an accident: Yes Bowel incontinence - that is, have an accident because you cannot make it to the bathroom in time: Yes Problems with straining while having bowel movements , hard or lumpy stools, or feel unfinished (that you have not passed all your stool): No Pain in rectum or anus during bowel movements: No Problems with jaundice - that is, yellow discoloration of your skin or eyes, now or in the past: No Problems with having to flush the toilet more than two times due to oily stool, or see stool floating with oil: No documented in this encounter [facility] 06-18-2024 Note HNO ID: [id number] Author: DERRICK MANRIQUEZ MD Service: ? Author Type: Physician Type: Progress Notes Filed: 06/18/2024 11:52 Note Text: VIRTUAL VISIT PROGRESS NOTE This is a virtual visit using [employer] Video Visit. It required patient-provider interaction for the medical decision making as documented below. I have communicated my name and active licensure. The patient's identity and physical location were verified at the time of this visit. Either the patient or their legal underwriting account representative has been informed of the risks and benefits of -- and alternatives to -- treatment through a remote evaluation and consents to proceed with the evaluation remotely. Courtney Deng is a 73-year-old female who is being seen in follow up. She was originally seen in July 2022 for Fatima?s esophagus with low grade dysplasia. 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 Recommendations at that time were for another upper endoscopy in six months. We also recommended elevating the head of the bed and utilizing pantoprazole 30 milligrams before breakfast and supper. Review of the photos obtained during the [facility] endoscopy revealed [place] C0M2 Fatima?s esophagus. Presently Doing well - lost her in February 2024 Hx of Barretts esophagus Taking Pantoprazole - BID AM/PM -no heartburn - no reflux Does have some dysphagia - with meats this has been going on for 2 weeks now she has had some dysphagia off and on No dysphagia with liquids Hamburger - gives her trouble mainly Bread is ok Weight is stable She is a diabetic currently taking Glipizide - FARXIGA Currently - UTI [place] - 2019 and three stents - EKG - stress test - year ago - passed She admits to some chest pressure off and on for several years - is not following up with Cardiology until August 2024 HISTORY REVIEWED (electronic chart updated): PAST MEDICAL HISTORY No date: Congestive heart failure (HCC) No date: Hypertension No past surgical history on file. No family history on file. Social History Tobacco Use Smoking status: Never Smokeless tobacco: Never Substance Use Topics Alcohol use: Never Drug use: Never Current Outpatient Medications Medication Sig atenolol (TENORMIN) 100 mg tablet TAKE 1/2 (ONE-HALF) TABLET BY MOUTH ONCE DAILY Cholecalciferol, Vitamin D3, 50 mcg (2,000 unit) cap Take 1 capsule by mouth once daily. Ferrous Gluconate (FERGON) 324 mg (38 mg iron) tablet Take 324 mg by mouth three times daily. pantoprazole DR (PROTONIX) 40 mg tablet Take 40 mg by mouth once daily. ranolazine ER (RANEXA) 500 mg 12 hr tablet Take 1 tablet by mouth twice daily. furosemide (LASIX) 20 mg tablet Take 1 tablet by mouth once daily. isosorbide mononitrate ER (IMDUR) 60 mg 24 hr tablet Take 60 mg by mouth twice daily. Magnesium 250 mg tab Take 250 mg by mouth once daily. calcium carbonate/vitamin D3 (CALCIUM 600 + D ORAL) Take 1 tablet by mouth once daily. No current facility-administered medications for this visit. ALLERGIES Allergen Reactions Atorvastatin Unknown Codeine Unknown, GI Upset Metformin Unknown Naproxen GI Upset, Vomiting Nitrofurantoin Unknown Increased BP Benadryl Allergy De* GI Upset High does made her sick to her stomach REVIEW OF SYSTEMS: GENERAL: feeling well without fatigue, no recent change in weight ASSESSMENT / PLAN Currently noting episodes of chest pain which is stable. She is on a long acting nitrate. By report, she underwent a stress test one year ago which was normal. She is noting a2 week history of solid food dysphasia. There is no liquid component. There is no pyrosis or regurgitation but she does note a burning sensation in the gastric region. She underwent an upper endoscopy under monitored anesthesia care two years ago at our institution without difficulty. At this point we are recommending the following: #1 follow up with her local custodial supervisor in two weeks with an EKG. #2: PACC clearance #3 following the above will arrange for an upper endoscopy with possible dilation under monitored anesthesia care There are no Patient Instructions on file for this visit. I spent a total of 25 minutes on the date of the service which included preparing to see the patient and [id number] patient care Answers submitted by the patient for this visit: Review of Systems Gastroenterology (Submitted on 06/18/2024) Fever: No Chills: No Night Sweats: No Unitentional Weight Change: No A Cough: No Difficulty Breathing: Yes Chest Pain: Yes Belly pain: Yes A feeling of fullness or have belly pain after eating: Yes Food getting stuck in your throat or chest after eating: Yes Nausea - that is, a feeling like you could vomit: Yes Regurgitation - that is, food or liquid coming back up into your throat or mouth without vomiting, or feel burning behind your breast bone: No Loss of appetite: No To (more content not included)... [facility] 09-30-2023 Hospital Discharge instructions Linden Marie MD - 09/30/2023 2:41 AM EST You were seen today here in the emergency department. You were seen for concerns of an episode of high blood sugar. At this time, you are safe for discharge. You can continue to take your diabetes medications as normal. Monitor your symptoms at home. Even though you are safe for discharge at this time, return to the emergency department if you develop new or worsening symptoms. Follow-up with your primary care physician regarding this visit. documented in this encounter [facility] 09-30-2023 Emergency department Triage note Pt was seen in ed earlier this shift. PT states that she had steroid and now sugar is 308. Pt is alert and oriented x 4 RR are equal and unlabored Skin PWD [facility] 09-30-2023 Emergency department Note Pt was seen in ed earlier this shift. PT states that she had steroid and now sugar is 308. Pt is alert and oriented x 4 RR are equal and unlabored Skin PWD documented in this encounter [facility] 09-30-2023 Hospital Discharge instructions Cindy Barajas APRN CNP - 09/30/2023 12:00 AM EST Home and rest, drink plenty of fluids. Medications as ordered. Albuterol inhaler 2 puffs every 6 hours as needed. Follow up with your primary care provider, return to the ED as needed if symptoms worsen or additional concerns arise. The following attachments cannot be sent through Care [email or web address] (Upper Respiratory Infection) (Arm[place]ian [place])documented in this encounter [facility] 09-29-2023 Physician Emergency department Note ED Diagnosis and Summary 1. Viral URI with cough ED Summary Patient treated symptomatically in the ED, a script for tessalon was ordered and she was given an albuterol inhaler with verbal instructions. To follow up with PCP, return to ED for worsening symptoms or additional concerns. Instructions given and patient voices understanding of instructions given and agrees with plan. History No chief complaint on file. Patient's medications and allergies were reviewed and updated as appropriate. Patient's medications, allergies, past medical, surgical, social and family histories were reviewed and updated as appropriate. Past Medical History: Diagnosis Date Cancer (HCC) Hypertension Myocardial infarction (HCC) 04/2020 Patient Active Problem List Diagnosis Date Noted GERD (gastroesophageal reflux disease) 04/11/2022 Hypertension Past Surgical History: Procedure Laterality Date ESOPHAGOGASTRODUODENOSCOPY WITH BIOPSY N/A 05/23/2022 ESOPHAGOGASTRODUODENOSCOPY WITH BIOPSY performed by Suzy James MD at ENDOSCOPY EYE SURGERY 2014 cataract on posterior of both eyes FRACTURE SURGERY Left 10/09/1999 Ankle fx lip biopsy TUBAL LIGATION 1985 Family History Problem Relation Age of Onset Heart disease Mother Diabetes Sister Cancer Sister 60 metastatic small cell Cancer Other Cancer Brother 57 metastatic small cell Social History Socioeconomic History Marital status: Tobacco Use Smoking status: Former Current packs/day: 0.00 Types: Cigarettes Quit date: 10/08/1977 Years since quittin.0 Smokeless tobacco: Never Vaping Use Vaping Use: Never used Substance and Sexual Activity Alcohol use: Not Currently Comment: rare Drug use: No Sexual activity: Yes Partners: Male control/protection: Surgical No current facility-administered medications for this encounter. Current Outpatient Medications Medication Sig Dispense Refill Acetaminophen (TYLENOL 8 HOUR PO) Take 500 mg by mouth daily. aspirin EC (ECOTRIN LOW STRENGTH) 81 MG EC tablet Take 1 tablet by mouth daily. atenolol (TENORMIN) 100 MG tablet Take 0.5 tablets by mouth daily. 90 tablet 3 Calcium Carb-Cholecalciferol (CALCIUM 500 + D PO) Take by mouth daily. Cholecalciferol 50 MCG (2000 UT) CAPS Take by mouth. clopidogrel (PLAVIX) 75 MG tablet Take 1 tablet by mouth daily. Dapagliflozin Propanediol (FARXIGA) 10 MG tablet Take 1 tablet by mouth daily. 90 tablet 3 Dapagliflozin Propanediol (FARXIGA) 10 MG tablet Take 1 tablet by mouth daily. 30 tablet 0 enalapril (VASOTEC) 10 MG tablet Take 1 tablet by mouth daily. 90 tablet 3 ezetimibe (ZETIA) 10 MG tablet Take 1 tablet by mouth daily. 90 tablet 2 ferrous gluconate (FERGON) 324 (38 Fe) MG tablet Take 1 tablet by mouth 3 times daily (with meals). 90 tablet 5 furosemide (LASIX) 20 MG tablet Take 1 tablet by mouth daily. 30 tablet 0 furosemide (LASIX) 20 MG tablet Take 1 tablet by mouth daily. 90 tablet 3 gabapentin (NEURONTIN) 300 MG capsule 1 qhs for 1 week then may increase to bid in neeed 90 capsule 1 glipiZIDE (GLUCOTROL) 5 MG tablet Take 1 tablet by mouth every morning (before breakfast). 90 tablet 3 isosorbide mononitrate (IMDUR) 60 MG 24 hr tablet Take 1 tablet by mouth two times a day. 14 tablet 0 Magnesium 500 MG TABS Take by mouth daily. Melatonin 10 MG TABS Take 10 mg by mouth nightly as needed. Ondansetron (ZOFRAN-ODT) 4 MG disintegrating tablet Take 1 tablet by mouth every 8 hours as needed for Nausea and/or Vomiting. Dissolve on tongue then swallow. 20 tablet 0 oxycodone-acetaminophen (PERCOCET) 5-325 MG per tablet Take 1 tablet by mouth every 6 hours as needed for Pain. 12 tablet 0 pantoprazole (PROTONIX) 40 MG tablet Take 1 tablet by mouth two times per day. 90 tablet 2 Potassium 95 MG TABS Take 99 mLs by mouth Daily. ranolazine (RANEXA) 500 MG 12 hr tablet Take 1 tablet by mouth two times a day. 180 tablet 3 No current facility-administered medications on file prior to encounter. Current Outpatient Medications on File Prior to Encounter Medication Sig Dispense Refill Acetaminophen (TYLENOL 8 HOUR PO) Take 500 mg by mouth daily. aspirin EC (ECOTRIN LOW STRENGTH) 81 MG EC tablet Take 1 tablet by mouth daily. atenolol (TENORMIN) 100 MG tablet Take 0.5 tablets by mouth daily. 90 tablet 3 Calcium Carb-Cholecalciferol (CALCIUM 500 + D PO) Take by mouth daily. Cholecalciferol 50 MCG (2000 UT) CAPS Take by mouth. clopidogrel (PLAVIX) 75 MG tablet Take 1 tablet by mouth daily. Dapagliflozin Propanediol (FARXIGA) 10 MG tablet Take 1 tablet by mouth daily. 90 tablet 3 Dapagliflozin Propanediol (FARXIGA) 10 MG tablet Take 1 tablet by mouth daily. 30 tablet 0 enalapril (VASOTEC) 10 MG tablet Take 1 tablet by mouth daily. 90 tablet 3 ezetimibe (ZETIA) 10 MG tablet Take 1 tablet by mouth daily. 90 tablet 2 ferrous gluconate (FERGON) 324 (38 Fe) MG tablet Take 1 tablet by mouth 3 times daily (with meals). 90 tablet 5 furosemide (LASIX) 20 MG tablet Take 1 tablet by mouth daily. 30 tablet 0 furosemide (LASIX) 20 MG tablet Take 1 tablet by mouth daily. 90 tablet 3 gabapentin (NEURONTIN) 300 MG capsule 1 qhs for 1 week then may increase to bid in neeed 90 capsule 1 glipiZIDE (GLUCOTROL) 5 MG tablet Take 1 tablet by mouth every morning (before breakfast). 90 tablet 3 isosorbide mononitrate (IMDUR) 60 MG 24 hr tablet Take 1 tablet by mouth two times a day. 14 tablet 0 Magnesium 500 MG TABS Take by mouth daily. Melatonin 10 MG TABS Take 10 mg by mouth nightly as needed. Ondansetron (ZOFRAN-ODT) 4 MG disintegrating tablet Take 1 tablet by mouth every 8 hours as needed for Nausea and/or Vomiting. Dissolve on tongue then swallow. 20 tablet 0 oxycodone-acetaminophen (PERCOCET) 5-325 MG per tablet Take 1 tablet by mouth every 6 hours as needed for Pain. 12 tablet 0 pantoprazole (PROTONIX) 40 MG tablet Take 1 tablet by mouth two times per day. 90 tablet 2 Potassium 95 MG TABS Take 99 mLs by mouth Daily. ranolazine (RANEXA) 500 MG 12 hr tablet Take 1 tablet by mouth two times a day. 180 tablet 3 No outpatient medications have been marked as taking for the 09/29/23 encounter (Hospital Encounter). Allergies Allergen Reactions Atorvastatin Nausea Only Codeine Nausea And Vomiting Doxycycline Other (See Comments) Stomach felt like it was on fire Metformin Nausea Only Naproxen Nausea And Vomiting Nitrofurantoin Nausea Only Benadryl Allergy Nausea Only High does made her sick to her stomach 72 y/o female patient presents to the ED with a 4 day history of sneezing and congestion. Reports a cough for approximately 10 days. Denies any fever. Has taken a Covid test at home which was negative 1 hour prior to arrival. No ill exposure, no one else at home is ill. Denies any additional concerns. Review of Systems Constitutional: Negative for chills and fever. HENT: Positive for congestion and sneezing. Respiratory: Positive for cough. Negative for shortness of breath. All other systems reviewed and are negative. I have reviewed ROS, [facility] and the nurses notes and I agree with them unless otherwise noted Physical Exam ED Triage Vitals [09/29/232156] BP 176/69 Heart Rate 58 Resp 20 Temp 97.5 F (36.4 C) Temp src SpO2 96 % Weight 205 lb (93 kg) Height 5' 1 (1.549 m) BMI (Calculated) 38.75 Physical Exam Vitals and nursing note reviewed. Constitutional: General: She is not in acute distress. Appearance: She is obese. She is not toxic-appearing. HENT: Head: Normocephalic and atraumatic. Right Ear: Tympanic membrane normal. Left Ear: Tympanic membrane normal. Nose: Nose normal. Mouth/Throat: Mouth: Mucous membranes are moist. Eyes: Conjunctiva/sclera: Conjunctivae normal. Pupils: Pupils are equal, round, and reactive to light. Cardiovascular: Rate and Rhythm: Regular rhythm. Bradycardia present. Heart sounds: Normal heart sounds. Pulmonary: Effort: Pulmonary effort is normal. Breath sounds: Wheezing (scattered) present. Neurological: Mental Status: She is alert. ED Course DD: URI, Covid, Influenza, Pneumonia Procedures XR Chest PA and lat Final Result No acute findings. Labs Reviewed SARS-COV-2, FLU A, FLU B, RSV (PCR) PANEL - Normal Medical Decision Making Amount and/or Complexity of Data Reviewed Labs: ordered. Radiology: ordered. Cindy Barajas APRN CNP 09/30/23 0004 [facility] 09-29-2023 Emergency department Note ED Diagnosis and Summary 1. Viral URI with cough ED Summary Patient treated symptomatically in the ED, a script for tessalon was ordered and she was given an albuterol inhaler with verbal instructions. To follow up with PCP, return to ED for worsening symptoms or additional concerns. Instructions given and patient voices understanding of instructions given and agrees with plan. History No chief complaint on file. Patient's medications and allergies were reviewed and updated as appropriate. Patient's medications, allergies, past medical, surgical, social and family histories were reviewed and updated as appropriate. Past Medical History: Diagnosis Date Cancer (HCC) Hypertension Myocardial infarction (HCC) 04/2020 Patient Active Problem List Diagnosis Date Noted GERD (gastroesophageal reflux disease) 04/11/2022 Hypertension Past Surgical History: Procedure Laterality Date ESOPHAGOGASTRODUODENOSCOPY WITH BIOPSY N/A 05/23/2022 ESOPHAGOGASTRODUODENOSCOPY WITH BIOPSY performed by Suzy James MD at ENDOSCOPY EYE SURGERY 2014 cataract on posterior of both eyes FRACTURE SURGERY Left 10/09/1999 Ankle fx lip biopsy TUBAL LIGATION 1986 Family History Problem Relation Age of Onset Heart disease Mother Diabetes Sister Cancer Sister 60 metastatic small cell Cancer Other Cancer Brother 57 metastatic small cell Social History Socioeconomic History Marital status: Tobacco Use Smoking status: Former Current packs/day: 0.00 Types: Cigarettes Quit date: 10/08/1977 Years since quittin.0 Smokeless tobacco: Never Vaping Use Vaping Use: Never used Substance and Sexual Activity Alcohol use: Not Currently Comment: rare Drug use: No Sexual activity: Yes Partners: Male control/protection: Surgical No current facility-administered medications for this encounter. Current Outpatient Medications Medication Sig Dispense Refill Acetaminophen (TYLENOL 8 HOUR PO) Take 500 mg by mouth daily. aspirin EC (ECOTRIN LOW STRENGTH) 81 MG EC tablet Take 1 tablet by mouth daily. atenolol (TENORMIN) 100 MG tablet Take 0.5 tablets by mouth daily. 90 tablet 3 Calcium Carb-Cholecalciferol (CALCIUM 500 + D PO) Take by mouth daily. Cholecalciferol 50 MCG (2000 UT) CAPS Take by mouth. clopidogrel (PLAVIX) 75 MG tablet Take 1 tablet by mouth daily. Dapagliflozin Propanediol (FARXIGA) 10 MG tablet Take 1 tablet by mouth daily. 90 tablet 3 Dapagliflozin Propanediol (FARXIGA) 10 MG tablet Take 1 tablet by mouth daily. 30 tablet 0 enalapril (VASOTEC) 10 MG tablet Take 1 tablet by mouth daily. 90 tablet 3 ezetimibe (ZETIA) 10 MG tablet Take 1 tablet by mouth daily. 90 tablet 2 ferrous gluconate (FERGON) 324 (38 Fe) MG tablet Take 1 tablet by mouth 3 times daily (with meals). 90 tablet 5 furosemide (LASIX) 20 MG tablet Take 1 tablet by mouth daily. 30 tablet 0 furosemide (LASIX) 20 MG tablet Take 1 tablet by mouth daily. 90 tablet 3 gabapentin (NEURONTIN) 300 MG capsule 1 qhs for 1 week then may increase to bid in neeed 90 capsule 1 glipiZIDE (GLUCOTROL) 5 MG tablet Take 1 tablet by mouth every morning (before breakfast). 90 tablet 3 isosorbide mononitrate (IMDUR) 60 MG 24 hr tablet Take 1 tablet by mouth two times a day. 14 tablet 0 Magnesium 500 MG TABS Take by mouth daily. Melatonin 10 MG TABS Take 10 mg by mouth nightly as needed. Ondansetron (ZOFRAN-ODT) 4 MG disintegrating tablet Take 1 tablet by mouth every 8 hours as needed for Nausea and/or Vomiting. Dissolve on tongue then swallow. 20 tablet 0 oxycodone-acetaminophen (PERCOCET) 5-325 MG per tablet Take 1 tablet by mouth every 6 hours as needed for Pain. 12 tablet 0 pantoprazole (PROTONIX) 40 MG tablet Take 1 tablet by mouth two times per day. 90 tablet 2 Potassium 95 MG TABS Take 99 mLs by mouth Daily. ranolazine (RANEXA) 500 MG 12 hr tablet Take 1 tablet by mouth two times a day. 180 tablet 3 No current facility-administered medications on file prior to encounter. Current Outpatient Medications on File Prior to Encounter Medication Sig Dispense Refill Acetaminophen (TYLENOL 8 HOUR PO) Take 500 mg by mouth daily. aspirin EC (ECOTRIN LOW STRENGTH) 81 MG EC tablet Take 1 tablet by mouth daily. atenolol (TENORMIN) 100 MG tablet Take 0.5 tablets by mouth daily. 90 tablet 3 Calcium Carb-Cholecalciferol (CALCIUM 500 + D PO) Take by mouth daily. Cholecalciferol 50 MCG (2000 UT) CAPS Take by mouth. clopidogrel (PLAVIX) 75 MG tablet Take 1 tablet by mouth daily. Dapagliflozin Propanediol (FARXIGA) 10 MG tablet Take 1 tablet by mouth daily. 90 tablet 3 Dapagliflozin Propanediol (FARXIGA) 10 MG tablet Take 1 tablet by mouth daily. 30 tablet 0 enalapril (VASOTEC) 10 MG tablet Take 1 tablet by mouth daily. 90 tablet 3 ezetimibe (ZETIA) 10 MG tablet Take 1 tablet by mouth daily. 90 tablet 2 ferrous gluconate (FERGON) 324 (38 Fe) MG tablet Take 1 tablet by mouth 3 times daily (with meals). 90 tablet 5 furosemide (LASIX) 20 MG tablet Take 1 tablet by mouth daily. 30 tablet 0 furosemide (LASIX) 20 MG tablet Take 1 tablet by mouth daily. 90 tablet 3 gabapentin (NEURONTIN) 300 MG capsule 1 qhs for 1 week then may increase to bid in neeed 90 capsule 1 glipiZIDE (GLUCOTROL) 5 MG tablet Take 1 tablet by mouth every morning (before breakfast). 90 tablet 3 isosorbide mononitrate (IMDUR) 60 MG 24 hr tablet Take 1 tablet by mouth two times a day. 14 tablet 0 Magnesium 500 MG TABS Take by mouth daily. Melatonin 10 MG TABS Take 10 mg by mouth nightly as needed. Ondansetron (ZOFRAN-ODT) 4 MG disintegrating tablet Take 1 tablet by mouth every 8 hours as needed for Nausea and/or Vomiting. Dissolve on tongue then swallow. 20 tablet 0 oxycodone-acetaminophen (PERCOCET) 5-325 MG per tablet Take 1 tablet by mouth every 6 hours as needed for Pain. 12 tablet 0 pantoprazole (PROTONIX) 40 MG tablet Take 1 tablet by mouth two times per day. 90 tablet 2 Potassium 95 MG TABS Take 99 mLs by mouth Daily. ranolazine (RANEXA) 500 MG 12 hr tablet Take 1 tablet by mouth two times a day. 180 tablet 3 No outpatient medications have been marked as taking for the 09/29/23 encounter (Hospital Encounter). Allergies Allergen Reactions Atorvastatin Nausea Only Codeine Nausea And Vomiting Doxycycline Other (See Comments) Stomach felt like it was on fire Metformin Nausea Only Naproxen Nausea And Vomiting Nitrofurantoin Nausea Only Benadryl Allergy Nausea Only High does made her sick to her stomach 72 y/o female patient presents to the ED with a 4 day history of sneezing and congestion. Reports a cough for approximately 10 days. Denies any fever. Has taken a Covid test at home which was negative 1 hour prior to arrival. No ill exposure, no one else at home is ill. Denies any additional concerns. Review of Systems Constitutional: Negative for chills and fever. HENT: Positive for congestion and sneezing. Respiratory: Positive for cough. Negative for shortness of breath. All other systems reviewed and are negative. I have reviewed ROS, [facility] and the nurses notes and I agree with them unless otherwise noted Physical Exam ED Triage Vitals [09/29/232156] BP 176/69 Heart Rate 58 Resp 20 Temp 97.5 F (36.4 C) Temp src SpO2 96 % Weight 205 lb (93 kg) Height 5' 1 (1.549 m) BMI (Calculated) 38.75 Physical Exam Vitals and nursing note reviewed. Constitutional: General: She is not in acute distress. Appearance: She is obese. She is not toxic-appearing. HENT: Head: Normocephalic and atraumatic. Right Ear: Tympanic membrane normal. Left Ear: Tympanic membrane normal. Nose: Nose normal. Mouth/Throat: Mouth: Mucous membranes are moist. Eyes: Conjunctiva/sclera: Conjunctivae normal. Pupils: Pupils are equal, round, and reactive to light. Cardiovascular: Rate and Rhythm: Regular rhythm. Bradycardia present. Heart sounds: Normal heart sounds. Pulmonary: Effort: Pulmonary effort is normal. Breath sounds: Wheezing (scattered) present. Neurological: Mental Status: She is alert. ED Course DD: URI, Covid, Influenza, Pneumonia Procedures XR Chest PA and lat Final Result No acute findings. Labs Reviewed SARS-COV-2, FLU A, FLU B, RSV (PCR) PANEL - Normal Medical Decision Making Amount and/or Complexity of Data Reviewed Labs: ordered. Radiology: ordered. Cindy Barajas APRN CNP 09/30/23 0004 Pt arrives to the ED via private vehicle. Pt ambulates to room without difficulty. PT c/o cough,sneezing and congestion for approx 4 days. Pt denies any fevers. Pt states she took a covid test at home and states that it was negative. Pt A&Ox4. RR easy and unlabored. NAD noted. documented in this encounter [facility] 09-29-2023 Emergency department Triage note Pt arrives to the ED via private vehicle. Pt ambulates to room without difficulty. PT c/o cough,sneezing and congestion for approx 4 days. Pt denies any fevers. Pt states she took a covid test at home and states that it was negative. Pt A&Ox4. RR easy and unlabored. NAD noted. [facility] 09-23-2023 Hospital Discharge instructions Santo Elam MD - 09/23/2023 9:[address] scan shows some mild inflammation of the abdominal fat, a condition called panniculitis, which is not serious and probably incidental. Nothing needs to be done about the panniculitis. We are still concerned about your gall bladder being the cause of your symptoms. We have therefore referred you to a surgeon to have the HIDA scan we talked about. We have also prescribed pain medicine to use in the mean time. The following attachments cannot be sent through Care Everywhere.Abdominal Pain (Armenian Cape Verdean)documented in this encounter [facility] 09-23-2023 Emergency department Note Report to Zurdo CASTRO. [facility] 09-23-2023 Emergency department Note Report to Zurdo CASTRO. Pt resting in cot with side rails up x 2, call light within reach. No needs at this time. PT arrived to ED at this time with a chief complaint of nausea and ABD pain that started around 2 weeks ago but the nausea has gotten worse this AM. She states she was diagnosed with a UTI Sunday and is currently on an ATB. She also has complaints of right upper ABD pain and rates it a 4/10. She states this pain comes and goes. She states she is to see her gastro doctor this coming Sunday. PT denies taking any medication for pain or nausea. PT states her last BM was this AM but denies any diarrhea. Skin is warm, pink and dry. RR is easy. documented in this encounter [facility] 09-23-2023 Emergency department Note Pt resting in cot with side rails up x 2, call light within reach. No needs at this time. [facility] 09-23-2023 Emergency department Triage note PT arrived to ED at this time with a chief complaint of nausea and ABD pain that started around 2 weeks ago but the nausea has gotten worse this AM. She states she was diagnosed with a UTI Sunday and is currently on an ATB. She also has complaints of right upper ABD pain and rates it a 4/10. She states this pain comes and goes. She states she is to see her gastro doctor this coming Sunday. PT denies taking any medication for pain or nausea. PT states her last BM was this AM but denies any diarrhea. Skin is warm, pink and dry. RR is easy. [facility] 08-02-2023 Emergency department Note Discharge instructions reviewed patient verbalizes understanding NAD [facility] 08-02-2023 Emergency department Note Discharge instructions reviewed patient verbalizes understanding NAD Called lab regarding troponin, Anamika in lab states it is running Patient resting on cot. Call light in reach. NAD Patient resting on cot NAD call light in reach Patient resting on cot NAD ED Diagnosis and Summary 1. Chest pain, unspecified type ED Summary History Chief Complaint Patient presents with Chest Pain Patient's medications and allergies were reviewed and updated as appropriate. Patient's medications, allergies, past medical, surgical, social and family histories were reviewed and updated as appropriate. Past Medical History: Diagnosis Date Cancer (HCC) Hypertension Myocardial infarction (HCC) 04/2020 Patient Active Problem List Diagnosis Date Noted GERD (gastroesophageal reflux disease) 04/11/2022 Hypertension Past Surgical History: Procedure Laterality Date ESOPHAGOGASTRODUODENOSCOPY WITH BIOPSY N/A 05/23/2022 ESOPHAGOGASTRODUODENOSCOPY WITH BIOPSY performed by Suzy James MD at ENDOSCOPY EYE SURGERY 2014 cataract on posterior of both eyes FRACTURE SURGERY Left 10/09/1999 Ankle fx lip biopsy TUBAL LIGATION 1985 Family History Problem Relation Age of Onset Heart disease Mother Diabetes Sister Cancer Sister 60 metastatic small cell Cancer Other Cancer Brother 57 metastatic small cell Social History Socioeconomic History Marital status: Tobacco Use Smoking status: Former Current packs/day: 0.00 Types: Cigarettes Quit date: 10/08/1977 Years since quittin.8 Smokeless tobacco: Never Substance and Sexual Activity Alcohol use: Not Currently Comment: rare Drug use: No Sexual activity: Yes Partners: Male control/protection: Surgical Social Determinants of Health GPC Brief Food GPC Brief Transportation GPC Brief Housing [facility] 72-year-old female with a past medical history notable for CAD with 1 prior stent in 2019 (Bernie), hypertension, hyperlipidemia, DM, Fatima's esophagus, GERD, hernia presents to the emergency room for evaluation of chest pain. Patient reports chest pain described as a squeezing sensation that woke her from sleep this evening. She endorses a generalized feeling of malaise that accompanied this sensation. Denies nausea, vomiting, or diaphoresis. Pain was nonradiating and subsided shortly thereafter. Reports history of GERD, but feels symptoms are different. Denies similar symptoms in the past. Currently endorses generalized malaise. Denies chest pain, abdominal pain, nausea, vomiting. Denies recent infectious symptoms. Review of Systems Cardiovascular: Positive for chest pain. Physical Exam ED Triage Vitals [08/02/23 0226] BP 199/90 Heart Rate 65 Resp 18 Temp 97.6 F (36.4 C) Temp src Oral SpO2 99 % Weight 205 lb (93 kg) Height 5' 1 (1.549 m) BMI (Calculated) 38.75 Physical Exam Vitals and nursing note reviewed. Constitutional: General: She is not in acute distress. Appearance: Normal appearance. She is not toxic-appearing. HENT: Head: Normocephalic and atraumatic. Eyes: General: No scleral icterus. Extraocular Movements: Extraocular movements intact. Conjunctiva/sclera: Conjunctivae normal. Cardiovascular: Rate and Rhythm: Normal rate and regular rhythm. Pulses: Normal pulses. Pulmonary: Effort: Pulmonary effort is normal. No respiratory distress. Abdominal: General: There is no distension. Tenderness: There is no abdominal tenderness. Musculoskeletal: General: No swelling. Normal range of motion. Cervical back: Normal range of motion. Skin: General: Skin is warm. Capillary Refill: Capillary refill takes less than 2 seconds. Coloration: Skin is not jaundiced. Findings: No erythema. Neurological: General: No focal deficit present. Mental Status: She is alert. Mental status is at baseline. Psychiatric: Mood and Affect: Mood normal. ED Course Procedures Medical Decision Making Heart Score History: Slightly or Non-Suspicious ECG: Normal Age: > or equal to 65 years Risk Factors: > or equal to 3 Risk Factors or History of CAD Troponin: < or equal to Normal Limit Score: 4 Comorbidities considered that could potentially complicate patient care: Past Medical History: Diagnosis Date Cancer (HCC) Hypertension Myocardial infarction (HCC) 04/2020 The patient is a 72 y.o. female who presents to the ED for evaluation of chest pain. Please see HPI and PE for pertinent information. Initial DDX concerning for but not limited to: ACS, pneumonia, reflux, pancreatitis, less likely PE History obtained from: Patient External record review includes: Echocardiogram 02/27/2020 Stress test 05/01/2016 ED work up/clinical course: Patient arrives in no distress. She is currently pain-free. Aspirin ordered. EKG demonstrates a normal sinus rhythm without evidence of ischemia. 3:19 AM Initial troponin undetectable. Lab work otherwise unrevealing. Chest x-ray without acute process. Patient reevaluated and in no distress. She has a HEART score of 4 and would benefit from further cardiac work-up and risk stratification. However, symptoms are equally likely to be gastrointestinal in nature. Offered admission for formal stress testing as we currently do not have this available at my facility. I also offered to perform a delta troponin and, if reassuring, discharge the patient with an outpatient stress test ordered at the [facility]. Patient would prefer hospital discharge at this time. Delta troponin is currently pending. If negative, and if patient remains pain-free, we will plan for discharge with outpatient stress test. Results review: Labs: Labs Reviewed CBC AND DIFFERENTIAL - Abnormal; Notable for the following components: Result Value RBC 5.41 (*) MCV 77.1 (*) MCH 23.1 (*) MCHC 30.0 (*) RDW-CV 21.8 (*) Absolute [place] 0.7 (*) All other components within normal limits COMPREHENSIVE METABOLIC PANEL - Abnormal; Notable for the following components: Glucose 131 (*) All other components within normal limits TROPONIN I SERIES - Normal BRAIN NATRIURETIC PEPTIDE - Normal LIPASE - Normal PERIPHERAL SMEAR REVIEW RAINBOW DRAW Narrative: The following orders were created for panel order [facility] Draw. Procedure Abnormality Status --------- ------ Gold Top[[id number]] In process LIGHT BLUE TOP[[id number]] In process Light Green Top[[id number]] In process Lavender Top[[id number]] In process Dark Green Top[[id number]] In process Please view results for these tests on the individual orders. GOLD TOP LIGHT BLUE TOP LIGHT GREEN TOP LAVENDER TOP DARK GREEN TOP TROPONIN I Imaging initially interpreted by me: No Acute Process XR Chest 1 View Final Result 1. No acute cardiopulmonary abnormality. Any interpretation of radiology tests by me is preliminary in nature in order to assess for immediately dangerous pathology in need or urgent or emergent intervention. Unless documented otherwise, final radiology reads guide the ultimate treatment plan including disposition. All EKGs (if applicable) are independently interpreted by myself. Nursing documentation of past medical history, surgical history, family history, and social history and medications reviewed and are accurate to the best of my knowledge except as detailed in the body of this note. This note dictated using THUBIT voice recognition software. Attempts at proofreading were made, but errors may occasionally still occur. Derrick Esquivel DO 08/02/23 0320 Patient arrives to ED from home with complaints of chest pain that woke her up from her sleep. Denies shortness of breath but does states she has had a lot of belching. Resp easy and unlabored. GCS 15 Currently pain free documented in this encounter [facility] 08-02-2023 Hospital Discharge instructions Derrick Esquivel DO - 08/02/2023 6:06 AM EDT You will be contacted by the [facility] ([facility]) to have an outpatient stress test scheduled. Return to the emergency room immediately if you develop chest pain, difficulty breathing, or any new symptoms that are concerning to you. The following attachments cannot be sent through Care Everywhere.Chest Pain (Armenian [place] Verdean)documented in this encounter [facility] 08-02-2023 Emergency department Note Called lab regarding troponin, Anamika in lab states it is running [facility] 08-02-2023 Emergency department Note Patient resting on cot. Call light in reach. NAD [facility] 08-02-2023 Emergency department Note Patient resting on cot NAD call light in reach [facility] 08-02-2023 Emergency department Note Patient resting on cot NAD [facility] 08-02-2023 Physician Emergency department Note ED Diagnosis and Summary 1. Chest pain, unspecified type ED Summary History Chief Complaint Patient presents with Chest Pain Patient's medications and allergies were reviewed and updated as appropriate. Patient's medications, allergies, past medical, surgical, social and family histories were reviewed and updated as appropriate. Past Medical History: Diagnosis Date Cancer (HCC) Hypertension Myocardial infarction (HCC) 04/2020 Patient Active Problem List Diagnosis Date Noted GERD (gastroesophageal reflux disease) 04/11/2022 Hypertension Past Surgical History: Procedure Laterality Date ESOPHAGOGASTRODUODENOSCOPY WITH BIOPSY N/A 05/23/2022 ESOPHAGOGASTRODUODENOSCOPY WITH BIOPSY performed by Suzy James MD at ENDOSCOPY EYE SURGERY 2014 cataract on posterior of both eyes FRACTURE SURGERY Left 10/09/1999 Ankle fx lip biopsy TUBAL LIGATION 1986 Family History Problem Relation Age of Onset Heart disease Mother Diabetes Sister Cancer Sister 60 metastatic small cell Cancer Other Cancer Brother 57 metastatic small cell Social History Socioeconomic History Marital status: Tobacco Use Smoking status: Former Current packs/day: 0.00 Types: Cigarettes Quit date: 10/08/1977 Years since quittin.8 Smokeless tobacco: Never Substance and Sexual Activity Alcohol use: Not Currently Comment: rare Drug use: No Sexual activity: Yes Partners: Male control/protection: Surgical Social Determinants of Health GPC Brief Food GPC Brief Transportation GPC Brief Housing HPI 72-year-old female with a past medical history notable for CAD with 1 prior stent in 2019 (Bernie), hypertension, hyperlipidemia, DM, Fatima's esophagus, GERD, hernia presents to the emergency room for evaluation of chest pain. Patient reports chest pain described as a squeezing sensation that woke her from sleep this evening. She endorses a generalized feeling of malaise that accompanied this sensation. Denies nausea, vomiting, or diaphoresis. Pain was nonradiating and subsided shortly thereafter. Reports history of GERD, but feels symptoms are different. Denies similar symptoms in the past. Currently endorses generalized malaise. Denies chest pain, abdominal pain, nausea, vomiting. Denies recent infectious symptoms. Review of Systems Cardiovascular: Positive for chest pain. Physical Exam ED Triage Vitals [08/02/23 0226] BP 199/90 Heart Rate 65 Resp 18 Temp 97.6 F (36.4 C) Temp src Oral SpO2 99 % Weight 205 lb (93 kg) Height 5' 1 (1.549 m) BMI (Calculated) 38.75 Physical Exam Vitals and nursing note reviewed. Constitutional: General: She is not in acute distress. Appearance: Normal appearance. She is not toxic-appearing. HENT: Head: Normocephalic and atraumatic. Eyes: General: No scleral icterus. Extraocular Movements: Extraocular movements intact. Conjunctiva/sclera: Conjunctivae normal. Cardiovascular: Rate and Rhythm: Normal rate and regular rhythm. Pulses: Normal pulses. Pulmonary: Effort: Pulmonary effort is normal. No respiratory distress. Abdominal: General: There is no distension. Tenderness: There is no abdominal tenderness. Musculoskeletal: General: No swelling. Normal range of motion. Cervical back: Normal range of motion. Skin: General: Skin is warm. Capillary Refill: Capillary refill takes less than 2 seconds. Coloration: Skin is not jaundiced. Findings: No erythema. Neurological: General: No focal deficit present. Mental Status: She is alert. Mental status is at baseline. Psychiatric: Mood and Affect: Mood normal. ED Course Procedures Medical Decision Making Heart Score History: Slightly or Non-Suspicious ECG: Normal Age: > or equal to 65 years Risk Factors: > or equal to 3 Risk Factors or History of CAD Troponin: < or equal to Normal Limit Score: 4 Comorbidities considered that could potentially complicate patient care: Past Medical History: Diagnosis Date Cancer (HCC) Hypertension Myocardial infarction (HCC) 04/2020 The patient is a 72 y.o. female who presents to the ED for evaluation of chest pain. Please see HPI and PE for pertinent information. Initial DDX concerning for but not limited to: ACS, pneumonia, reflux, pancreatitis, less likely PE History obtained from: Patient External record review includes: Echocardiogram 02/27/2020 Stress test 05/01/2016 ED work up/clinical course: Patient arrives in no distress. She is currently pain-free. Aspirin ordered. EKG demonstrates a normal sinus rhythm without evidence of ischemia. 3:19 AM Initial troponin undetectable. Lab work otherwise unrevealing. Chest x-ray without acute process. Patient reevaluated and in no distress. She has a HEART score of 4 and would benefit from further cardiac work-up and risk stratification. However, symptoms are equally likely to be gastrointestinal in nature. Offered admission for formal stress testing as we currently do not have this available at my facility. I also offered to perform a delta troponin and, if reassuring, discharge the patient with an outpatient stress test ordered at the [facility]. Patient would prefer hospital discharge at this time. Delta troponin is currently pending. If negative, and if patient remains pain-free, we will plan for discharge with outpatient stress test. Results review: Labs: Labs Reviewed CBC AND DIFFERENTIAL - Abnormal; Notable for the following components: Result Value RBC 5.41 (*) MCV 77.1 (*) MCH 23.1 (*) MCHC 30.0 (*) RDW-CV 21.8 (*) Absolute [place] 0.7 (*) All other components within normal limits COMPREHENSIVE METABOLIC PANEL - Abnormal; Notable for the following components: Glucose 131 (*) All other components within normal limits TROPONIN I SERIES - Normal BRAIN NATRIURETIC PEPTIDE - Normal LIPASE - Normal PERIPHERAL SMEAR REVIEW RAINBOW DRAW Narrative: The following orders were created for panel order [facility] Draw. Procedure Abnormality Status --------- ------ Gold Top[[id number]] In process LIGHT BLUE TOP[[id number]] In process Light Green Top[[id number]] In process Lavender Top[[id number]] In process Dark Green Top[[id number]] In process Please view results for these tests on the individual orders. GOLD TOP LIGHT BLUE TOP LIGHT GREEN TOP LAVENDER TOP DARK GREEN TOP TROPONIN I Imaging initially interpreted by me: No Acute Process XR Chest 1 View Final Result 1. No acute cardiopulmonary abnormality. Any interpretation of radiology tests by me is preliminary in nature in order to assess for immediately dangerous pathology in need or urgent or emergent intervention. Unless documented otherwise, final radiology reads guide the ultimate treatment plan including disposition. All EKGs (if applicable) are independently interpreted by myself. Nursing documentation of past medical history, surgical history, family history, and social history and medications reviewed and are accurate to the best of my knowledge except as detailed in the body of this note. This note dictated using THUBIT voice recognition software. Attempts at proofreading were made, but errors may occasionally still occur. Derrick Esquivel DO 08/02/23 0320 [facility] 08-02-2023 Emergency department Triage note Patient arrives to ED from home with complaints of chest pain that woke her up from her sleep. Denies shortness of breath but does states she has had a lot of belching. Resp easy and unlabored. GCS 15 Currently pain free [facility] 12-09-2022 Discharge summary Note Date/Time December 09, 2022 3:54pm [facility] Medical Records Department [address] [place] [address] Emergency Department Summary 12/09/22 MR#: [id number] Acct: [id number] Name: COURTNEY DENG Rep #:[id number] : 1950 72 From: Jacques Morales MD PCP: Dr. Ralph Gibson DO Status:REG ER Location: ED ADDENDUM by Dr. Jacques Morales MD on 12/09/22 at 1702 EKG showed normal sinus bradycardia rate of 56 no acute signs of WI or ischemia. Unchanged from prior EKG from March 2022. 12/09/221701<Electronically signed by Jacques Morales MD> Cosigner Signature (if applicable): cc: Dr. Ralph Gibson DO ~* Signed HPI HPI - URI History of Present Illness Chief Complaint: Shortness of Breath Detail of Chief Complaint: Cough of white phlegm. Informant: patient Onset/Context/Timing Onset: Weeks Context: Gradual Onset Timing: Continuous Current Severity: Mild Maximum Severity: Mild Associated Symptoms Associated Symptoms: Positive for Productive Cough Narrative Narrative: 72-year-old female history of CAD, WI, CHF, coronary stents and diabetes. States she got URI symptoms since November 27 was treated with Tussin DM withoutany significant relief. Her primary care physician 1 to put her on antibiotic which she sent with her reflux she could not take it so never started the antibiotic. She says she she has not had any fever or chills. She at times haswhite productive phlegm. She had a home COVID test that was negative. She states she does get short of breath primarily supine. She denies any hemoptysis. No chest pain except with coughing. No leg swelling. Prior similar symptoms: Yes Recent Illness/Hospitalization: No ROS ROS ED ROS Narrative Cough. Shortness of breath. Review of Systems ROS Unobtainable: Denies due to encephalopathy Constitutional Constitutional ED: Denies chills or fever(s) Eyes Eyes: Denies blurry vision ENT ENT ED: Denies ear pain Cardiovascular Cardiovascular: Denies chest pain or palpitations Respiratory/Chest Respiratory/Chest: Reports cough and dyspnea Gastrointestinal Gastrointestinal: Reports diarrhea; Denies abdominal pain, constipation, melena,nausea or vomiting Musculoskeletal Musculoskeletal: Denies arthralgias Integumentary Denies abscess Neurologic Neurologic: Denies headache(s) Psychiatric Psychiatric: Denies anxiety or depression Endocrine Endocrinology: Denies cold intolerance Hematologic/Lymphatic Hematologic/Lymphatic: Denies easy bleeding or easy bruising Allergic/Immunologic Allergic/Immunologic ED: Denies mouth swelling or tongue swelling PFSH [facility] Medical History (Updated 12/09/22 @ 17:[address] Jacques Morales MD) Anxiety Atherosclerosis of coronary artery without angina pectoris Fatima's esophagus CHF (congestive heart failure) Essential (primary) hypertension Former smoker GERD (gastroesophageal reflux disease) GI bleed History of non-ST elevation myocardial infarction (NSTEMI) (04/20/20) Hyperlipidemia Obesity Osteoarthritis Type 2 diabetes mellitus Home Medications aspirin 81 mg tablet,delayed release (Adult Aspirin Regimen) 81 mg PO DAILY heart health 03/30/20 [History Last Taken 03/28/21] atenolol 50 mg tablet 50 mg PO DAILY blood pressure #90 tabs 08/25/20 [Rx Last Taken 03/28/21] ranolazine 500 mg tablet,extended release,12 hr (Ranexa) 500 mg PO BID #60 tabs 08/30/20 [Rx Last Taken 03/28/21] potassium 99 mg tablet 99 mg PO DAILY 09/06/20 [History Last Taken 03/13/21 07:00] ezetimibe 10 mg tablet (Zetia) 10 mg PO DAILY #30 tabs 11/26/20 [Rx Last Taken 03/13/21 07:00] furosemide 20 mg tablet 20 mg PO DAILY #90 tabs 02/01/21 [Rx Last Taken 03/12/21 10:00] isosorbide mononitrate 60 mg tablet,extended release 24 hr 60 mg PO BID #60 tabs110/08/20 [Rx Last Taken Unknown] cholecalciferol (vitamin D3) 50 mcg (2,000 unit) capsule 50 mcg PO DAILY 09/21/21 [History Last Taken Unknown] clopidogrel 75 mg tablet (Plavix) 75 mg PO DAILY #90 tabs 10/24/21 [Rx Last Taken Unknown] pantoprazole 40 mg tablet,delayed release 40 mg PO DAILY 06/29/22 [History Last Taken Unknown] azithromycin 250 mg tablet (Zithromax Z-Glenn) 250 mg PO DAILY 4 days #4 tabs 12/09/22 [Rx Last Taken Unknown] calcium carbonate 600 mg calcium (1,500 mg) tablet (Calcium) 600 mg PO DAILY 12/09/22 [History Last Taken Unknown] dapagliflozin 10 mg tablet (Farxiga) 10 mg PO DAILY 12/09/22 [History Last Taken Unknown] enalapril maleate 10 mg tablet 10 mg PO DAILY 12/09/22 [History Last Taken Unknown] magnesium 250 mg tablet 250 mg PO DAILY 12/09/22 [History Last Taken Unknown] melatonin 5 mg tablet 5 mg PO QHS 12/09/22 [History Last Taken Unknown] Allergy/AdvReac Type Severity Reaction Status Date / Time atorvastatin Allergy Severe Other Verified 12/09/22 15:36 codeine AdvReac Diarrhea Verified 12/09/22 15:36 metformin AdvReac gi upset Verified 12/09/22 15:36 naproxen AdvReac Diarrhea Verified 12/09/22 15:36 nitrofurantoin AdvReac Nausea Verified 12/09/22 15:36 [From Macrobid] Family History Sister Myocardial infarction age 53 Cancer Sister Heart disease Myocardial infarction, Onset Age: 69 Mother Myocardial infarction, Onset Age: 63 Brother Cancer Other CAD (coronary artery disease) Surgical History History of coronary artery stent placement (04/19/20) History of left heart catheterization (03/31/21) History of open reduction and internal fixation (ORIF) procedure History of tubal ligation Social History adopted: No household members: spouse housing: house number of children: 3 current occupational status: retired current occupational exposures/hazards: No pets and animals: No leisure activities: fishing history of recent travel: No sexually active: No Smoking Status: Former smoker quit date: 10/08/77 pack-years: 6 Electronic Cigarette Use: not used alcohol intake: never seatbelt use: always do you feel safe at home: Yes EXAM Physical Exam Narrative Exam Narrative: 72-year-old female no acute distress. Vital signs stable afebrile. Pulse ox 97% on room air no signs hypoxia. H EENT exam unremarkable. Moist with membranes. Neck nontender no JVD. Lungs clear to auscultation bilaterally. Heart regular rate and rhythm rate about 65 no murmur. Abdomen soft nontender. Moving all 4 extremities. Calves are nontender without edema or cords. Neurologically she is awake and alert with no focal motor deficits. Very benignexam. Const Vital Signs: 12/09/22 15:35 12/09/22 16:01 12/09/22 16:29 Temperature 97.2 F L Temperature Source Temporal Pulse Rate 65 Respiratory Rate 18 Respiratory Effort Normal Non-Labored Short of Breath Respiratory Depth Normal Respiratory Pattern Normal Blood Pressure 165/84 H Blood Pressure Mean 111 Pulse Ox 97 97 Oxygen Delivery Method Room Air Room Air Room Air 12/09/22 16:13 12/09/22 16:31 Temperature 97.2 F L 97.2 F L Temperature Source Temporal Temporal Pulse Rate 63 55 L Respiratory Rate 17 16 Respiratory Effort Respiratory Depth Respiratory Pattern Blood Pressure 145/67 H 136/62 H Blood Pressure Mean 89 85 Pulse Ox 95 94 Oxygen Delivery Method Room Air Room Air Positive well nourished, well developed and obese; Negative for cachectic or contractures General Appearance ED: well developed and NAD; Negative for cachectic, contractures, cyanotic, diaphoretic or pallor Nutritional Appearance: obese; Negative for cachectic HEENT Reports moist mucous membranes; Denies dry mucous membranes normocephalic; Negative for atraumatic Mouth ED: No dry mucous membranes Mouth: No dry mucous membranes Teeth and Gingiva: Negative for caries Throat: posterior oropharynx normal Eyes PERRL and EOMs intact bilaterally General Eye ED: Negative for pale conjunctiva or scleral icterus Neck no lymphadenopathy, supple, no meningeal signs and no JVD General: Negative for anterior neck swelling or lymphadenopathy Resp normal respiratory effort and clear to auscultation bilaterally Effort and Inspection: Negative for retractions Auscultation: Negative for rales, rhonchi or wheezes Cardio S1 normal heart sound, S2 normal heart sound and no murmurs Rate: regular rate Rhythm: regular rhythm GI non-tender, non-distended and no masses Inspection: Negative for abdominal distention Auscultation: normoactive bowel sounds Palpation: soft; Negative for tender or guarding Back/Spine no CVA tenderness and normal ROM General Back: Negative for CVA tenderness Cervical Spine: Negative for cervical spine tenderness Thoracic Spine / Upper Back: Negative for thoracic spinal tenderness Lumbar Spine / Lower Back: Negative for lumbar spinal tenderness Sacrum: Negative for tenderness Extremity normal to inspection and full ROM General Extremety ED: Negative for cyanosis or tenderness General Extremity: Negative for cyanosis Neuro oriented x3 and CN's II-XII intact bilaterally Sensorium / Orientation: alert, oriented to person, oriented to place and oriented to time; Negative for orientation impaired, lethargic or stuporous Motor Exam: strength 5/5 throughout Psych mental status grossly normal Appearance: Negative for other Attitude: No agitated Mood & Affect: Negative for depressed Skin General Skin Exam: Negative for jaundice or pallor Lesions: no lesions Rashes: no rashes Trauma: Negative for abrasion MDM MDM MDM Narrative Medical decision making narrative: 72-year-old with shortness of breath and a cough. Benign exam. Differential includes URI, pneumonia, pleural effusion, CHF or dysrhythmia. On exam there isno obvious dysrhythmia. I do not hear pneumonia. She has equal symmetrical lung sounds. I think this is more of a URI etiology. Chest x-ray is consistent with a right lower lobe pneumonia. Patient be startedon Zithromax. First dose given in ER 5 mg p.o. and 250/day for the next 4 days. I did go over the chest x-ray results with the patient. I will check her COVIDPCR but that will take several hours to come back. Lab Data Attestation: I reviewed the patient's lab results. Lab results narrative: CBC shows normal white count 7.8. H&H 12.9 and 42. Platelets 269. Chemistries unremarkable. Gap at 9. Normal BUN and creatinine. Glucose 155. Chest x-ray looks like a right lower lobe pneumonia that both the radiologist and I agree with. Labs: Laboratory Results - last 24 hr 12/09/22 12/09/22 16:01 16:01 WBC 7.8 RBC 5.23 Hgb 12.9 Hct 42.1 MCV 80.5 L MCH 24.7 L MCHC 30.6 L RDW Std Deviation 42.3 RDW Coeff of Ibrahima 14.6 Plt Count 269 MPV 10.0 Immature Gran % (Auto) 0.400 Neut % (Auto) 71.9 H Lymph % (Auto) 17.3 L [place] % (Auto) 8.6 Eos % (Auto) 1.4 Baso % (Auto) 0.4 Absolute Neuts (auto) 5.6 Absolute Lymphs (auto) 1.35 Nucleated RBC % 0 Sodium 140 Potassium 3.6 Chloride 107 Carbon Dioxide 24.0 Anion Gap 9 BUN 11 Creatinine 0.97 Estim Creat Clear Calc 42.68 Est GFR (MDRD) Af Amer 73 Est GFR (MDRD) Non-Af 60 BUN/Creatinine Ratio 11.3 Glucose 155 H Calcium 8.6 Radiography Chest X-Ray - ED: 1 View, Read by ED Physician, Heart, Mediastinum, Bony Structures, Chronic Changes and Right Infiltrate Diagnostic Testing: Clinical Impression(s) from Imaging Studies Chest X-Ray 12/09/22 16:10 IMPRESSION: Mild right lower lobe airspace disease which may represent developing pneumonia. Electronically Signed: Ramon Mora MD at 16:31 EST , Chest x-ray, 2 views, AP and lateral on the AP view there is some opacity in theright lower lung which could be consistent with an infiltrate. Differential Diagnosis Differential Diagnosis: Pneumonia versus URI versus virus versus cardiac event or pulmonary edema or pleural effusion. Why less likely: Clinically sounds like bacterial respiratory infection versus a viral URI. Discharge Plan Triage Chief Complaint: Shortness of Breath ED Provider: Jacques Morales Dx/Rx/DC Orders Clinical Impression: Pneumonia, History of CAD (coronary artery disease), History of diabetes mellitus Instructions: ED Pneumonia (Adult) Prescriptions: New azithromycin [Zithromax Z-Glenn] 250 mg tablet 250 mg PO DAILY 4 Days Qty: 4 0RF Rx Instructions: start on day 2 of therapy No Action aspirin [Adult Aspirin Regimen] 81 mg tablet,delayed release (DR/EC) 81 mg PO DAILY atenolol 50 mg tablet 50 mg PO DAILY Qty: 90 3RF cholecalciferol (vitamin D3) 50 mcg (2,000 unit) capsule 50 mcg PO DAILY pantoprazole 40 mg tablet,delayed release (DR/EC) 40 mg PO DAILY Label Comments: TAKE 1 TABLET BY MOUTH TWICE DAILY potassium 99 MG tablet 99 mg PO DAILY enalapril maleate 10 mg tablet 10 mg PO DAILY Label Comments: TAKE 1 TABLET BY MOUTH ONCE DAILY calcium carbonate [Calcium 600] 600 mg calcium (1,500 mg) Tablet 600 mg PO DAILY magnesium 250 mg Tablet 250 mg PO DAILY melatonin 5 mg Tablet 5 mg PO QHS Farxiga 10 mg Tablet 10 mg PO DAILY ranolazine [Ranexa] 500 mg tablet extended release 12 hr 500 mg PO BID Qty: 60 11RF ezetimibe [Zetia] 10 mg tablet 10 mg PO DAILY Qty: 30 3RF furosemide 20 mg tablet 20 mg PO DAILY Qty: 90 3RF isosorbide mononitrate 60 mg tablet extended release 24 hr 60 mg PO BID Qty: 60 11RF clopidogrel [Plavix] 75 mg tablet 75 mg PO DAILY Qty: 90 3RF Primary Care Provider: Ralph Gibson Referrals: Ralph Gibson DO [Primary Care Provider] - 3-5 Days if not improving Activity Restrictions/Additional Instructions: Zithromax which is the antibiotic 1 pill once a day after lunch for the next 4 days starting on Sunday. Plenty of fluids and rest. Tylenol for any fever. Follow-up with your doctor if not improving. Return if worse. Disposition Disposition: Home, Self Care What to do if you have Problems For any increased pain, shortness of breath, bleeding, nausea or vomiting, chestpain, or any unexpected problems, contact your Primary Care Provider. Call [facility] ([phone]) or report to the closest Emergency Room. Call 911 if necessary. 12/09/22 1701 <Electronically signed by Jacques Morales MD> Cosigner Signature (if applicable): CC: Dr. Ralph Gibson DO ~ Signed [facility] Work Phone: [phone] 493-111810-26-2022 Miscellaneous Notes* Telephone Encounter - Bettie Mosquera - 08/02/2022 11:26 AM EDT I was able to pull [facility] records from care everywhere so they are available for you to view. I spoke with the pt about the MRI and we are working on getting that. Bettie Mosquera Drapery Inspector documented [facility] Nurse Note* Lin Guzman RN - 07/21/2022 4:27 PM EDT AMBULATORY PATIENT EDUCATION NOTE TOPIC: GI PROCEDURES: Esophagogastroduodenoscopy(EGD) with or without biopies based on clinical findings, removal of polyps or lesions READINESS TO LEARN INSTRUCTION PROVIDED TO: Patient, readness to learn accessed prior to procedure and Patient and family member COGNITIVE ABILITY: Alert and oriented PTED MOTIVATION TO LEARN: Interested FAMILY SUPPORT: High - Very involved in pt care IPATIENT LEARNS BEST BY: Individual Instruction Written Instruction - Hand-outs Verbal Instruction FACTORS AFFECTING LEARNING: None PHYSICAL LIMITATIONS AFFECTING LEARNING: None LEARNING RESPONSE METHOD OF INSTRUCTION: Individual instruction PATIENT / FAMILY RESPONSE: Verbalizes understanding of: WORSENING CONDITION- Signs and symptoms of aworsening condition that warrant a call to the physician FOLLOW-UP PLAN: Patient instructed to call with any further issues Recommend - Recommend continued instruction and follow up as directed Contact information given. SUPPLEMENTAL MATERIAL: Procedure Discharge Instructions REFERRAL (RECOMMENDATION): None documented in this encounterA[facility]10-07-[facility]22 Miscellaneous Notes* Telephone Encounter - Roxanne Edwards RN - 07/14/2022 5:00 PM EDT GI Pre-Procedure Spoke with patient: Yes Confirmed date scheduled and patient report time: Yes Procedure Planned:Endoscopic Ultrasound (EUS) with or without Fine Needle Aspiration (FNA) Is the patient on blood thinners?no Procedure Instructions given to patient: Yes, and they verbalized their understanding of instructions given Patient instructed to take prescribed preparation prior to procedure:Yes, and they verbalized theirunderstanding of instructions given Patient instructed to have family/friend present for procedure transport home:Patient/patient underwriting account representative was told that if they do not have a responsible adult accompany them to their procedure; and remain in the endoscopy area until they are discharged; that their procedure cannot be done with s edation or anesthesia and may be cancelled. and They verbalized their understanding and agree to have a responsible adult accompany the patient to their procedure and remain in the endoscopy area. Any barriers to Patient learning: Patient/Patient Copy Reader responded appropriately on phone. Type of instruction given: Verbal by telephone contact. Roxanne Edwards RN documented in this encounterA[facility]09-27-[facility] Instructions* Patient Instructions* Misti Palafox MD - 07/04/2022 1:41 PM EDT - RFA (radio frequency ablation) for treatment of dysplasia with fatima's esophagus - That will be during an EGD - Change timing of pantoprazole 40 mg to 30 minutes before breakfast and dinner - Okay to stop sucralfate - Lifestyle changes for GERD - Decrease excess weight. - Raise the head of the bed 4 to 6 inches. - Do not lie down for at least 3 to 4 hours after meals. - Avoid the following: citrus juices, cigarettes, chocolate, tight fitting clothing, coffee and other caffeinated beverages, carbonated beverages, fatty and fried foods, anticholinergic medications, medications which decrease LES tone (Ca channel carlos manuel, theophyline preparations). FATIMA'S ESOPHAGUS Fatima's esophagus is a condition in which the esophagus, the muscular tube that carries food and saliva from the mouth to the stomach, changes so that some of its lining is replaced by a type of tissue similar to that normally found in the intestine. This process is called intestinal metaplasia. While Fatima's esophagus may cause no symptoms itself, a small number of people with this condition develop a relatively rare but often deadly type of cancer of the esophagus called esophageal adenocarcinoma. Fatima's esophagus is estimated to affect about 700,000 adults in the [place]. It is associated with the very common condition gastroesophageal reflux disease or GERD. Normal Function of the Esophagus The esophagus seems to have only one important function in the body--to carry food, liquids, and saliva from the mouth to the stomach. The stomach then acts as a container to start digestion and pumpfood and liquids into the intestines in a controlled process. Food can then be properly digested over time, and nutrients can be absorbed by the intestines. The esophagus transports food to the stomach by coordinated contractions of its muscular lining. This process is automatic and people are usually not aware of it. Many people have felt their esophagus when they swallow something too large, try to eat too quickly, or drink very hot or very cold liquids. They then feel the movement of the food or drink down the esophagus into the stomach, which may be an uncomfortable sensation. The muscular layers of the esophagus are normally pinched together at both the upper and lower endsby muscles called sphincters. When a person swallows, the sphincters relax automatically to allow food or drink to pass from the mouth into the stomach. The muscles then close rapidly to prevent the swallowed food or drink from leaking out of the stomach back into the esophagus or into the mouth. These sphincters make it possible to swallow while lying down or even upside-down. When people belch to release swallowed air or gas from carbonated beverages, the sphincters relax and small amounts offood or drink may come back up briefly; this condition is called reflux. The esophagus quickly squeezes the material back into the stomach. This amount of reflux and the reaction to it by the esophagus are considered normal. While these functions of the esophagus are obviously an important part of everyday life, people whomust have their esophagus removed, for example because of cancer, can live a relatively healthy life without it. GERD Having occasional liquid or gas reflux is considered normal. When it happens frequently, particularly when not trying to belch, and causes other symptoms, it is considered a medical problem or disease. However, it is not necessarily a serious one that requires seeing a physician. The stomach produces acid and enzymes to digest food. When this mixture refluxes into the esophagusmore frequently than normal, or for a longer period of time than normal, it may produce symptoms. These symptoms, often called acid reflux, are usually described by people as heartburn, indigestion, or gas. The symptoms typically consist of a burning sensation below and behind the lower part of the breastbone or sternum. Almost everyone has experienced these symptoms at least once, typically after overeating. GERD symptoms can also result from being overweight, eating certain types of foods, or being . In most people, GERD symptoms last only a short time and require no treatment at all. More persistent symptoms are often quickly relieved by [id number] acid-reducing agents such as antacids. Common antacids are [place] Maalox Mylanta Pepto-Bismol [place] Rolaids Other drugs used to relieve GERD symptoms are antisecretory drugs such as histamine2 (H2) blockers or proton pump inhibitors. Common H2 blockers are cimetidine (Tagamet HB) famotidine (Pepcid AC) nizatidine (Axid AR) ranitidine (Zantac 75) Common proton pump inhibitors are esomeprazole (Nexium) lansoprazole (Prevacid) omeprazole (Prilosec) pantoprazole (Protonix) rabeprazole (Aciphex) People who have GERD symptoms frequently should consult a physician. Other diseases can have similar symptoms, and prescription medications in combination with other measures might be needed to reduce reflux. GERD that is untreated over a long period of time can lead to complications, such as an ulcer in the esophagus that could cause bleeding. Another common complication is scar tissue that blocks the movement of swallowed food and drink through the esophagus; this condition is called stricture. Esophageal reflux may also cause certain less common symptoms, such as hoarseness or chronic cough,and sometimes provokes conditions such as asthma. While most patients find that lifestyle modifications and acid-blocking drugs relieve their symptoms, doctors occasionally recommend surgery. Overall, more than 60 million [place] adults experience GERD, making it one of the most common medical conditions. GERD and Fatima's Esophagus The exact causes of Fatima's esophagus are not known, but it is thought to be caused in part by the same factors that cause GERD. Although people who do not have heartburn can have Fatima's esophagus, it is found about three to five times more often in people with this condition. Fatima's esophagus is uncommon in children. The average age at diagnosis is 60, but it is usually difficult to determine when the problem started. It is about twice as common in men as in women and much more common in white men than in men of other races. Fatima's Esophagus and Cancer of the Esophagus Fatima's esophagus does not cause symptoms itself and is important only because it seems to precede the development of a particular kind of cancer--esophageal adenocarcinoma. The risk of developing adenocarcinoma is 30 to 125 times higher in people who have Fatima's esophagus than in people who do not. This type of cancer is increasing rapidly in white men. This increase may be related to the rise in obesity and GERD. For people who have Fatima's esophagus, the risk of getting cancer of the esophagus is small: lessthan 1 percent (0.4 percent to 0.5 percent) per year. Esophageal adenocarcinoma is often not curable, partly because the disease is frequently discovered at a late stage and because treatments are not effective. Diagnosis and Screening Fatima's esophagus can only be diagnosed by an upper GI endoscopy to obtain biopsies of the esophagus. At present, it cannot be diagnosed on the basis of symptoms, physical exam, or blood tests. In an upper GI endoscopy, a flexible tube called an endoscope, which has a light and miniature camera, is passed into the esophagus. If the tissue appears suspicious, then biopsies must be done. A biopsyis the removal of a small piece of tissue using a pincher-like device passed through the endoscope.A pathologist examines the tissue under a microscope to confirm the diagnosis. Looking for a medical problem in people who do not know whether they have one is called screening. Currently, there are no commonly accepted guidelines on who should have endoscopy to check for Fatima's esophagus. Among the many reasons for the lack of firm recommendations about screening are the great expense and occasional risk of side effects of the test. Also, the rate of finding Fatima's esophagus is low, and finding the problem early has not been proven to prevent deaths from cancer. Many physicians recommend that adult patients who are over the age of 40 and have had GERD symptomsfor a number of years have endoscopy to see whether they have Fatima's esophagus. Screening for this condition in people who have no symptoms is not recommended. Treatment Fatima's esophagus has no cure, short of surgical removal of the esophagus, which is a serious operation. Surgery is recommended only for people who have a high risk of developing cancer or who already have it. Most physicians recommend treating GERD with acid-blocking drugs, since this is sometimes associated with improvement in the extent of the Fatima's tissue. However, this approach has notbeen proven to reduce the risk of cancer. Treating reflux with a surgical procedure for GERD also does not seem to cure Fatima's esophagus. Several different experimental approaches are under study. One attempts to see whether destroying the Fatima's tissue by heat or other means through an endoscope can eliminate the condition. This approach, however, has potential risks and unknown effectiveness. Surveillance for Dysplasia and Cancer Periodic endoscopic examinations to look for early warning signs of cancer are generally recommended for people who have Fatima's esophagus. This approach is called surveillance. When people who have Fatima's esophagus develop cancer, the process seems to go through an intermediate stage in whichcancer cells appear in the Faitma's tissue. This condition is called dysplasia and can be seen only in biopsies with a microscope. The process is patchy and cannot be seen directly through the endoscope, so multiple biopsies must be taken. Even then, the cancer cells can be missed. The process of change from Fatima's to cancer seems to happen in only a few patients, less than 1 percent per year, and over a relatively long period of time. Most physicians recommend that patientswith Fatima's esophagus undergo periodic surveillance endoscopy to have biopsies. The recommended interval between endoscopies varies depending on specific circumstances, and the ideal interval has not been determined. Treatment for Dysplasia or Esophageal Adenocarcinoma If a person with Fatima's esophagus is found to have dysplasia or cancer, the doctor will usually recommend surgery if the person is strong enough and has a good chance of being cured. The type of surgery may vary, but it usually involves removing most of the esophagus and pulling the stomach up into the chest to attach it to what remains of the esophagus. Many patients with Fatima's esophagus are elderly and have many other medical problems that make surgery unwise; in these patients, other approaches to treating dysplasia are being investigated. Hope Through Research Many important questions about Fatima's esophagus need further research to: find better ways to identify people who have the problem find out what causes it test treatments that may prevent or eliminate it find better treatments for people who have Fatima's esophagus with cancer The National [employer] of Diabetes and Digestive and Kidney Diseases and the National [employer] sponsor research programs to investigate Fatima's esophagus. Points to Remember In Fatima's esophagus, the cells lining the esophagus change and become similar to the cells lining the intestine. Fatima's esophagus is associated with gastroesophageal reflux disease or GERD. A small number of people with Fatima's esophagus may develop esophageal cancer. Fatima's esophagus is diagnosed by upper gastrointestinal endoscopy and biopsy. People who have Fatima's esophagus should have periodic esophageal examinations. Taking acid-blocking drugs for GERD may result in improvements in Fatima's esophagus. Removal of the esophagus is recommended only for people who have a high risk of developing cancer or who already have it. For More Information [employer]intestinal [employer] (IFF[employer]) Inc[employer] [address] [place] [address] Phone: or [phone] Email: Internet: www.iffgd.org National [employer] ([facility]) National Institutes of [address], [address] [place] [address] Internet: www.nci.nih.gov The U.S. Government does not endorse or favor any specific commercial product or company. Trade, proprietary, or company names appearing in this document are used only because they are considered necessary in the context of the information provided. If a product is not mentioned, the omission does not mean or imply that the product is unsatisfactory. National Digestive Diseases Information Clearinghouse [address] [place] [address] Phone: Email: Internet: www.digestive.niddk.nih.gov The National Digestive Diseases Information Clearinghouse (NDDIC) is a service of the National [place] of Diabetes and Digestive and Kidney Diseases (NIDDK). The NIDDK is part of the National Institutes of Health of the U.S. Department of Health and Human Services. Established in 1979, the Clearinghouse provides information about digestive diseases to people with digestive disorders and to their families, health youth care worker, and the public. The NDDIC answers inquiries, develops and distributes publications, and works closely with professional and patient organizations and Government agencies to coordinate resources about digestive diseases. Publications produced by the Clearinghouse are carefully reviewed by both NIDDK scientists and outside experts. This publication was originally reviewed by Julieth Hernandez M.D., [facility]; and Reynold Londono M.D., [facility] This publication is not copyrighted. The Clearinghouse encourages users of this publication to duplicate and distribute as many copies as desired. NIH Publication No. [id number] September 2004 documented in this encounterAult[facility] History of Present illness Narrative* Misti Palafox MD - 07/04/2022 1:00 PM EDT Images from the original note were not included. Celiac Disease Program NEW GENERAL GI PATIENT HISTORY & PHYSICAL Courtney Deng 07/04/2022 Subjective This is a 71 year old female with a history of [place] s/p stent on DAPT, hx tobacco use, GERD who presents for evaluation of dysphagia. Recommendations will be communicated back to referring physician via fax, mail, or sharing of EMR. CC Patient presents with: severe dysplasia History of Present Illness Referring MD: Ralph Gibson Presenting Symptoms: dysphagia Follows with Dr Gibson from OSH. Has had GERD (epigastric pain, hoarse voice) for years, worsening over the past year. Was experiencing intermittent RUQ pain eventually causing her to undergo CT a/p. Due to distended GB, underwent MRI that reportedly showed benign findings. She underwent EGD with biopsy on 05/23/2022 that showed: paraesophageal hernia, reflux esophagitis with likely Fatima's esophagus, gastric polyps, mild duodenitis. GEJ bx-- SQUAMOUS AND GASTRIC MUCOSA WITH INTESTINAL METAPLASIA AND FOCAL LOW-GRADE DYSPLASIA. Duodenal bx-- normal villous architecture, no increased in intraepithelial lymphocytes. Stomach polyp-- POLYPOID FOVEOLAR HYPERPLASIA NO SIGNIFICANT INFLAMMATION OR DYSPLASIA Started on sucralfate 1g QID and continued on PPI 40mg BID. Only able to take carafate BID due to pill burden. Surgeon wanted patient to get RFA and referred to [facility] due to sooner appt availability rather than [facility]. Recommendations: EGD every 6 months for one year then every year until reversion to nondysplastic Barretts - RFA if patient is amenable Family history of possible stomach cancer. Review of Systems A comprehensive 14-point review of systems was performed and found to be negative except as noted in the HPI. Answers submitted by the patient for this visit: Review of Systems Gastroenterology (Submitted on 07/04/2022) Fever: No Chills: No Night Sweats: No Unitentional Weight Change: No A Cough: No Difficulty Breathing: No Chest Pain: No Belly pain: Yes A feeling of fullness or have belly pain after eating: Yes Food getting stuck in your throat or chest after eating: Yes Nausea - that is, a feeling like you could vomit: Yes Regurgitation - that is, food or liquid coming back up into your throat or mouth without vomiting, or feel burning behind your breast bone: Yes Loss of appetite: No To throw up or vomit: No Blood in your stools: No Black tarry stools: No Loose or watery stools: Yes The feeling like you need to empty your bowels right away - that is, feel as if you would have an accident: Yes Bowel incontinence - that is, have an accident because you cannot make it to the bathroom in time: Yes Problems with straining while having bowel movements , hard or lumpy stools, or feel unfinished (that you have not passed all your stool): No Pain in rectum or anus during bowel movements: No Problems with jaundice - that is, yellow discoloration of your skin or eyes, now or in the past: No Problems with having to flush the toilet more than two times due to oily stool, or see stool floating with oil: No Past Medical History [place] GERD Tobacco use Past Surgical History Cardiac Stent Family History Potential family history of gastric cancer Social History Tobacco uses. Accompanied by and daughter. Medications Current Outpatient Medications Medication Sig Dispense Refill atenolol (TENORMIN) 100 mg tablet TAKE 1/2 (ONE-HALF) TABLET BY MOUTH ONCE DAILY Cholecalciferol, Vitamin D3, 50 mcg (2,000 unit) cap Take 1 capsule by mouth once daily. Ferrous Gluconate (FERGON) 324 mg (38 mg iron) tablet Take 324 mg by mouth three times daily. pantoprazole DR (PROTONIX) 40 mg tablet Take 40 mg by mouth once daily. ranolazine ER (RANEXA) 500 mg 12 hr tablet Take 1 tablet by mouth twice daily. furosemide (LASIX) 20 mg tablet Take 1 tablet by mouth once daily. isosorbide mononitrate ER (IMDUR) 60 mg 24 hr tablet Take 60 mg by mouth twice daily. Magnesium 250 mg tab Take 250 mg by mouth once daily. calcium carbonate/vitamin D3 (CALCIUM 600 + D ORAL) Take 1 tablet by mouth once daily. No current facility-administered medications for this visit. Allergies ALLERGIES Allergen Reactions Atorvastatin Unknown Codeine Unknown, GI Upset Metformin Unknown Naproxen GI Upset, Vomiting Nitrofurantoin Unknown Increased BP Benadryl Allergy De* GI Upset High does made her sick to her stomach Objective Physical Exam BP 168/85 (BP Site: Left Arm, BP Position: Sitting, BP Cuff Size: Regular Adult) Pulse (!) 55 Temp (!) 35.8 C (96.5 F) (Temporal) Ht 154.9 cm (5' 1) Wt 95.3 kg (210 lb) SpO2 97% BMI 39.68 kg/m Gen: Aox3, no acute distress CV: RRR, no m/r/g Lungs: CTAB Abd: mild RUQ tenderness to palpation, +BS Labs Labs reviewed. 01/13/22 TSH: 1.100 01/13/22 Hgb 13.4 01/13/22 CMP normal (except sodium 134) Imaging Imaging reviewed including outside records. CT Abd/pelvis 02/13/22: DILATED COMMON BILE DUCT. NEWLY VISUALIZED CYSTIC ABNORMALITY IN the liver. No definite pancreatic ductal dilation or mass. Distended gallbladder. Consider repeat right upper quadrant ultrasound, or MR CP/MRI for better visualization of the common bile duct and ampullary region. This could also better characterize the cystic liver findings. Additional note of a cyst finding upper pole of the right kidney, also newly visualized as compared to the prior ultrasound. 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 SMALL INTESTINE, DUODENUM BULB, BIOPSY: -DUODENAL MUCOSA WITH NORMAL VILLOUS ARCHITECTURE, NO INCREASE IN INTRAEPITHELIAL LYMPHOCYTES B. STOMACH, POLYP, BIOPSY: -POLYPOID FOVEOLAR HYPERPLASIA NO SIGNIFICANT INFLAMMATION OR DYSPLASIA C. GASTROESOPHAGEAL JUNCTION, BIOPSY: -SQUAMOUS AND GASTRIC MUCOSA WITH INTESTINAL METAPLASIA AND FOCAL LOW-GRADE DYSPLASIA Colonoscopy: not on file Assessment and Plan #1 Fatima's esophagus with low-grade dysplasia #2 GERD Ms. Deng is a 71-year-old female with a history of GERD, HTN, CAD s/p who presents with ongoing GERD, EGD with low grade dysplasia. Referred to [facility] for RFA evaluation. Discussed surveillance biopsies versus RFA for treatment. Expressed my preference and GI society's towards treatment with radio frequency ablation. Ordered therapeutic EGD. Advised optimizing timing of PPI. - Will refer to Dr Akins for RFA consideration - Continue pantoprazole 40mg BID - take 30 minutes before meals - Okay to discontinue sucralfate - Lifestyle recommendations for GERD Attending Note I evaluated the patient and personally participated in the peguero components. I agree with the resident's findings and plan as documented and have discussed the case and management of the patient's carewith the resident. BE with low-grade dysplasia, plan for RFA. Signature: Misti Palafox MD Date: 07/04/22 Time: 1435 Medical Decision Making: Problems: Moderate: New problem with uncertain prognosis Data: Unique test result(s) reviewed: 2 Unique test(s) ordered: 1 Risk: Moderate: Moderate risk from testing/treatment Medical Decision Making Level: 4 - Moderate documented in this encounterAult[facility]08-16-2022 Hospital Discharge instructions* Discharge Instructions* Jossie Matta RN - 05/23/2022 11:13 AM EDT SCOPE DISCHARGE INSTRUCTIONS You have had an Esophagogastroduodenoscopy (EGD) procedure. Sedation: You were given medication for sedation. You may feel drowsy or tired for a few hours. We recommend you not be alone today. Please do not participate in activities that require good coordination or concentration such as driving a car or operating machinery for the next 24 hours. Protect yourself against falls, especially on the stairs or when walking long distances. Delay making businessdecisions that require the signing of legal documents for a minimum of 24 hours. No alcoholic beverages for 24 hours. Diet: Type of diet ordered No restriction.. You may eat and drink at 12:38pm.. IV: If the IV site swells or bleeds, please apply direct pressure for 5 minutes. If the site becomes red, you may apply warm, moist compresses to the site. Please see a healthcare professional if youhave concerns about your IV site. Pain/Bleeding: You have had a biopsy taken performed during the procedure. You may expect a little bleeding from the site. Within the next 48 hours, if the bleeding becomes excessive or is accompanied by abdominal or chest pain, please call your physician immediately. If you are on aspirin or NSAIDS (non-steroidal anti-inflammatory drugs) then you can resume 7 days.Hold plavix for 7 days. If no follow-up appointment is required, you may receive a letter or phone call from the physician regarding your test/biopsy results within the next two weeks. A note will also be sent to your referring physician. If you have any questions, please call your physician's office. documented in this encounterMemorial [facility] Note* Op Note - Suzy James MD - 05/23/2022 10:54 AM EDT Date of operation- 05/23/2022 Event Time Procedure/Incision Start 104 Event Time Procedure End 1054 PCP:Ralph Gibson DO Procedure: EGD with biopsy PreOperative Diagnosis: GERD, epigastric pain, hiatal hernia PostOperative Diagnosis: reflux esophagitis, small-moderate size type 3 paraesophageal hernia, gastric polyps, mild duodenitis Surgeon: Suzy James MD Sedation: Patient received conscious sedation medications Versed 5mg and Fentanyl 100 mcg given intravenously by me in incremental doses until sedation achieved. During the time of the procedure the patient was continuously monitored under my direct supervisionfor greater than or equal to 15 minutes (>15 minutes). ? Game Author: Sally Walsh ST Sedation Nurse: Diann Cabrera RN Indications: Courtney Deng is 71 y.o. female with GERD and epigastric pain that is likely due to her hiatal hernia. 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 The video upper GI endoscope was passed and direct vision by mouth investigating theoropharynx, vocal cords, esophagus, stomach (including retroflexion view the cardia and fundus), and the duodenum well into the third portion of the duodenum.Above findings were noted and multiple biopsied were obtained with cold forceps. Gas was evacuated from the gastric lumen decompressing the stomach.The scope was then withdrawn reinspecting the esophagus. The patient tolerated the procedure w ithout complication. Comments and recommendations: Will halley with the results PPI BID Suzy James M.D. [facility] (office) (pager) [facility]08-16-[facility]22 Miscellaneous Notes* Op Note - Suzy James MD - 05/23/2022 10:54 AM EDT Date of operation- 05/23/2022 Event Time Procedure/Incision Start 104 Event Time Procedure End 1054 PCP:Ralph Gibson DO Procedure: EGD with biopsy PreOperative Diagnosis: GERD, epigastric pain, hiatal hernia PostOperative Diagnosis: reflux esophagitis, small-moderate size type 3 paraesophageal hernia, gastric polyps, mild duodenitis Surgeon: Suzy James MD Sedation: Patient received conscious sedation medications Versed 5mg and Fentanyl 100 mcg given intravenously by me in incremental doses until sedation achieved. During the time of the procedure the patient was continuously monitored under my direct supervisionfor greater than or equal to 15 minutes (>15 minutes). ? Game Author: Sally Walsh ST Sedation Nurse: Diann Cabrera RN Indications: Courtney Deng is 71 y.o. female with GERD and epigastric pain that is likely due to her hiatal hernia. 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 The video upper GI endoscope was passed and direct vision by mouth investigating theoropharynx, vocal cords, esophagus, stomach (including retroflexion view the cardia and fundus), and the duodenum well into the third portion of the duodenum.Above findings were noted and multiple biopsied were obtained with cold forceps. Gas was evacuated from the gastric lumen decompressing the stomach.The scope was then withdrawn reinspecting the esophagus. The patient tolerated the procedure w ithout complication. Comments and recommendations: Will halley with the results PPI BID Suzy James M.D. [facility] (office) (pager) documented in this encounterMemorial [facility]-16-[facility] History and physical note* Suzy James MD - 05/23/2022 9:57 AM EDT History and Physical Update Patient was seen and examined in the holding area. There have been no changes to the patient's medical history since I last saw them in the office and no changes to her physical exam. All questions were answered at the bedside. Suzy James M.D. [facility] (office) (pager) [place] [address] Office [phone] Consult Date of Service: 05/23/2022 Patient name: Courtney Deng Requested by: No ref. provider found Reason for request/Chief Complaint: GERD, distended gallbladder, dilated CBD This document has been created using voice recognition software and may contain spelling, grammatical, syntax, and accounts officer errors. Assessment/Plan: Courtney Deng is 71 y.o. female with GERD and epigastric pain that is likely due to her hiatal hernia. She was also noted to have a distended gallbladder with dilated common bile duct. However, she had known cholelithiasis and there is no signs of cholecystitis. Her common bile duct size is measured about 8 mm which is on the mildly dilated size for a 72 yo patient. I explained to the patient that this could be an anatomic variance but cannot rule out any underlying causes so will need furtherinvestigation with MRCP to evaluate any underlying pathology if any since she also has a new liver lesion. She does not need any emergent cholecystectomy at this time. However, she may need diagnostic EGD to evaluate further about her epigastric pain and GERD depending on the MRCP. Open MRI needed due to severe anxiety-we will arrange Follow-up after MRI to discuss results and plan Diet modification discussed for her reflux I discussed her elevated BMI. She has been counseled in the office during this visit . Addendum: MRI normal Scheduled for EGD to assess further about epigastric pain. History of Present Illness: Courtney Deng is 71 y.o. female who came in for further evaluation of abnormal imaging finding. She reports having subxiphoid/epigastric pain after eating with significant reflux. She is using the wedge during sleep but often wakes up due to reflux symptoms. She is using PPI daily and Tums as needed. She had ultrasound of gallbladder which was normal and had CT a/p which demonstrated distended gallbladder and dilated common bile duct with new cystic lesion in the liver. She denies any history of hepatitis, history of jaundice, or pancreatitis. She denies any biliary colic symptoms. She has chronic diarrhea. She had EGD/colonoscopy 2 years ago after her cardiac catheterization at outside facility. Past Medical History: Past Medical History: Diagnosis Date Hypertension Myocardial infarction (HCC) 04/2020 Past Surgical History: Past Surgical History: Procedure Laterality Date EYE SURGERY 2014 cataract on posterior of both eyes FRACTURE SURGERY Left 10/09/1999 Ankle fx lip biopsy TUBAL LIGATION 1985 Prior to Admission Medications: No current facility-administered medications on file prior to encounter. Current Outpatient Medications on File Prior to Encounter Medication Sig Dispense Refill Acetaminophen (TYLENOL 8 HOUR PO) Take 500 mg by mouth daily. aspirin EC (ECOTRIN LOW STRENGTH) 81 MG EC tablet Take 81 mg by mouth daily. atenolol (TENORMIN) 100 MG tablet Take 0.5 tablets by mouth daily. 90 tablet 3 Cholecalciferol 50 MCG (2000 UT) CAPS Take by mouth. clopidogrel (PLAVIX) 75 MG tablet Take 75 mg by mouth daily. ferrous gluconate (FERGON) 324 (38 Fe) MG tablet Take 1 tablet by mouth 3 times daily (with meals).90 tablet 5 furosemide (LASIX) 20 MG tablet Take 20 mg by mouth. ibuprofen (ADVIL,MOTRIN) 400 MG tablet Take 400 mg by mouth daily as needed for Pain. isosorbide mononitrate (IMDUR) 60 MG 24 hr tablet Take 60 mg by mouth two times a day. Melatonin 10 MG TABS Take 10 mg by mouth nightly as needed. pantoprazole (PROTONIX) 40 MG tablet Take 40 mg by mouth daily. Potassium 95 MG TABS Take 99 mLs by mouth Daily. ranolazine (RANEXA) 500 MG 12 hr tablet Take 1 tablet by mouth two times a day. 180 tablet 3 Family History: Obtained collectively from the medical record/family/patient Family History Problem Relation Age of Onset Heart disease Mother Diabetes Sister Cancer Sister 60 metastatic small cell Cancer Other Cancer Brother 57 metastatic small cell Social History: Social History Tobacco Use Smoking status: Former Types: Cigarettes Quit date: 10/08/1977 Years since quittin.6 Smokeless tobacco: Never Substance Use Topics Alcohol use: Not Currently Comment: rare Drug use: No Allergies: Allergies Allergen Reactions Atorvastatin Nausea Only Codeine Nausea And Vomiting Metformin Nausea Only Naproxen Nausea And Vomiting REVIEW OF SYSTEMS: All negative except positive items which are bolded Constitutional: chills, diaphoresis, fever, malaise/fatigue, night sweats, weakness and weight loss Skin: alopecia, itching and rash HENT: congestion, ear discharge, ear pain, headaches, hearing loss, nose bleeds, sore throat, stridor and tinnitus Eyes: blurred vision, double vision, eye discharge, eye pain, eye redness and photophobia Cardiovascular: chest pain, claudication, leg swelling, orthopnea, palpitations, paroxysmal nocturnal dyspnea Respiratory: cough, hemoptysis, shortness of breath, sputum production or wheezing Gastointestinal: abdominal pain, blood in stool, constipation, diarrhea, heartburn, melena, nausea and vomiting Genitourinary: dysuria, flank pain, frequency, hematuria and urgency Musculoskeletal: back pain, falls, joint pain, myalgias and neck pain Endo: cold intolerance, heat intolerance, polydipsia and polyuria. Heme: anemia, easy bleeding and easy bruising Allergies: environmental allergies, hay fever, hives and rhinorrhea Neurological: dizziness, focal weakness, level of consciousness, seizures, sensory change, speech change, tingling and tremor Psychiatric: depression, hallucinations, insomnia, memory loss, nervous, anxious, substance abuse and suicidal ideals Physical Examination: PHYSICAL EXAMINATION: There were no vitals taken for this visit. CONSTITUTIONAL: Well-developed, well-nourished female in no acute distress. Oriented with normal affect. EYES: ENT: PERRL. EOMI. Sclerae white. EAMs normal. Hearing normal. Nasal mucosa normal Lips, gums and oropharynx: Dentition is normal for age NECK: Supple, trachea is midline, no JVD CV: Regular rate and rhythm. Peripheral pulses: Radial pulses full RESPIRATORY: normal respiratory effort. GASTROINTESTINAL: Soft, ND, NT Small reducible umbilical/incisional hernia MUSCULOSKELETAL: No cyanosis or clubbing. NEURO: No focal deficits, Cranial nerves intact, intact sensation to all four extremities. PSYCH: Alert and oriented, Appropriate. Mood: normal SKIN: Intact without obvious lesions. No palpable nodules LYMPHATICS: No cervical, supraclavicular, epitrochlear or inguinal nodes palpated. Labs/X-ray/Pathology: Labs: Lab Results Component Value Date WHITEBLOODCE 9.3 01/13/2022 HGB 13.4 01/13/2022 HCT 44.3 01/13/2022 PLT 309.0 01/13/2022 CHOL 182 06/30/2021 TRIG 223 (H) 06/30/2021 HDL 56.5 06/30/2021 ALT 17 01/13/2022 AST 23 01/13/2022 NA 134 (L) 01/13/2022 K 4.3 01/13/2022 CL 100 01/13/2022 CREATININE 0.90 02/13/2022 BUN 14 01/13/2022 CO2 26 01/13/2022 TSH 1.100 01/13/2022 HGBA1C 6.5 (H) 01/13/2022 Imaging: US gallbladder FINDINGS: LIVER: The liver demonstrates normal echogenicity without evidence of intrahepatic biliary ductal dilatation. BILIARY SYSTEM: Gallbladder is unremarkable without evidence of pericholecystic fluid, wall thickening or stones. Negative sonographic Marin's sign. Common bile duct is 7.4 mm. RIGHT KIDNEY: The right kidney is grossly unremarkable without evidence of hydronephrosis. PANCREAS: Visualized portions of the pancreas are unremarkable. OTHER: No evidence of right upper quadrant ascites. IMPRESSION: Unremarkable right upper quadrant ultrasound. CT a/p FINDINGS: The pelvis is not included on these images. Imaging of right upper quadrant from April 2021 is reviewed, the gallbladder was unremarkable at that time, common bile duct at that time was slightly over 7 mm. No obvious pathology seen in the liver on the previous ultrasound. The gallbladder on the current study is greatly distended although with no obvious adjacent fluid. No calcified stones are seen noting that most gallstones are not calcified. Adjacent to the gallbladder but within the liver as seen axial image 36 and adjacent, coronal image 45, there is a cystic abnormality with somewhat irregular borders and measuring 22 x 11 x 14 mm. The liver otherwise with no suspicious focal findings. The liver prominent measuring 19.9 cm cephalocaudal. The common bile duct is 8 mm, this is dilated. The pancreas without obvious mass. No pancreatic ductal dilation is identified. There is a moderate size hiatus hernia. The lung bases with mosaic attenuation, this is nonspecific although could be associated with air-trapping. The heart is not enlarged. Some calcifications likely associated with the coronary arteries are seen. There is no free air. There are no abdominal wall hernias containing bowel in the area imaged. The adrenal glands without mass. The spleen no focal abnormality seen, not enlarged. The right kidney a cystic finding upper pole which measures simple fluid Hounsfield unit, 10 mm x 8 mm x 9 mm. No hydronephrosis of either kidney and the included portions of the ureters with no stones. The aorta atherosclerotic with no aneurysm. Included portions of the GI tract noting that oral contrast has been administered with no findings suspicious for pathologic wall thickening or large or small bowel obstruction, again noting the hiatus hernia and substantial air in the lower esophagus. Evaluation for adenopathy with nodes not meeting size criterion for pathologic enlargement in the periportal and peripancreatic regions. The bony structures with no fractures or destructive lesions. Multilevel anterior osteophytes and bony fusion of the particularly lower thoracic spine are seen. IMPRESSION: DILATED COMMON BILE DUCT. NEWLY VISUALIZED CYSTIC ABNORMALITY IN the liver. No definite pancreatic ductal dilation or mass. Distended gallbladder. Consider repeat right upper quadrant ultrasound, or MR CP/MRI for better visualization of the common bile duct and ampullary region. This could also better characterize the cystic liver findings. Additional note of a cyst finding upper pole of the right kidney, also newly visualized as compared to the prior ultrasound. Suzy James M.D. [facility] (office) (pager) [facility]08-16-2022 History and physical note* Suzy James MD - 05/23/2022 9:57 AM EDT History and Physical Update Patient was seen and examined in the holding area. There have been no changes to the patient's medical history since I last saw them in the office and no changes to her physical exam. All questions were answered at the bedside. Suzy James M.D. [facility] (office) (pager) [place] [address] Office [phone] Consult Date of Service: 05/23/2022 Patient name: Courtney Deng Requested by: No ref. provider found Reason for request/Chief Complaint: GERD, distended gallbladder, dilated CBD This document has been created using voice recognition software and may contain spelling, grammatical, syntax, and accounts officer errors. Assessment/Plan: Courtney Deng is 71 y.o. female with GERD and epigastric pain that is likely due to her hiatal hernia. She was also noted to have a distended gallbladder with dilated common bile duct. However, she had known cholelithiasis and there is no signs of cholecystitis. Her common bile duct size is measured about 8 mm which is on the mildly dilated size for a 72 yo patient. I explained to the patient that this could be an anatomic variance but cannot rule out any underlying causes so will need furtherinvestigation with MRCP to evaluate any underlying pathology if any since she also has a new liver lesion. She does not need any emergent cholecystectomy at this time. However, she may need diagnostic EGD to evaluate further about her epigastric pain and GERD depending on the MRCP. Open MRI needed due to severe anxiety-we will arrange Follow-up after MRI to discuss results and plan Diet modification discussed for her reflux I discussed her elevated BMI. She has been counseled in the office during this visit . Addendum: MRI normal Scheduled for EGD to assess further about epigastric pain. History of Present Illness: Courtney Deng is 71 y.o. female who came in for further evaluation of abnormal imaging finding. She reports having subxiphoid/epigastric pain after eating with significant reflux. She is using the wedge during sleep but often wakes up due to reflux symptoms. She is using PPI daily and Tums as needed. She had ultrasound of gallbladder which was normal and had CT a/p which demonstrated distended gallbladder and dilated common bile duct with new cystic lesion in the liver. She denies any history of hepatitis, history of jaundice, or pancreatitis. She denies any biliary colic symptoms. She has chronic diarrhea. She had EGD/colonoscopy 2 years ago after her cardiac catheterization at outside facility. Past Medical History: Past Medical History: Diagnosis Date Hypertension Myocardial infarction (HCC) 04/2020 Past Surgical History: Past Surgical History: Procedure Laterality Date EYE SURGERY 2014 cataract on posterior of both eyes FRACTURE SURGERY Left 10/09/1999 Ankle fx lip biopsy TUBAL LIGATION 1985 Prior to Admission Medications: No current facility-administered medications on file prior to encounter. Current Outpatient Medications on File Prior to Encounter Medication Sig Dispense Refill Acetaminophen (TYLENOL 8 HOUR PO) Take 500 mg by mouth daily. aspirin EC (ECOTRIN LOW STRENGTH) 81 MG EC tablet Take 81 mg by mouth daily. atenolol (TENORMIN) 100 MG tablet Take 0.5 tablets by mouth daily. 90 tablet 3 Cholecalciferol 50 MCG (1999 UT) CAPS Take by mouth. clopidogrel (PLAVIX) 75 MG tablet Take 75 mg by mouth daily. ferrous gluconate (FERGON) 324 (38 Fe) MG tablet Take 1 tablet by mouth 3 times daily (with meals).90 tablet 5 furosemide (LASIX) 20 MG tablet Take 20 mg by mouth. ibuprofen (ADVIL,MOTRIN) 400 MG tablet Take 400 mg by mouth daily as needed for Pain. isosorbide mononitrate (IMDUR) 60 MG 24 hr tablet Take 60 mg by mouth two times a day. Melatonin 10 MG TABS Take 10 mg by mouth nightly as needed. pantoprazole (PROTONIX) 40 MG tablet Take 40 mg by mouth daily. Potassium 95 MG TABS Take 99 mLs by mouth Daily. ranolazine (RANEXA) 500 MG 12 hr tablet Take 1 tablet by mouth two times a day. 180 tablet 3 Family History: Obtained collectively from the medical record/family/patient Family History Problem Relation Age of Onset Heart disease Mother Diabetes Sister Cancer Sister 60 metastatic small cell Cancer Other Cancer Brother 57 metastatic small cell Social History: Social History Tobacco Use Smoking status: Former Types: Cigarettes Quit date: 10/08/1977 Years since quittin.6 Smokeless tobacco: Never Substance Use Topics Alcohol use: Not Currently Comment: rare Drug use: No Allergies: Allergies Allergen Reactions Atorvastatin Nausea Only Codeine Nausea And Vomiting Metformin Nausea Only Naproxen Nausea And Vomiting REVIEW OF SYSTEMS: All negative except positive items which are bolded Constitutional: chills, diaphoresis, fever, malaise/fatigue, night sweats, weakness and weight loss Skin: alopecia, itching and rash HENT: congestion, ear discharge, ear pain, headaches, hearing loss, nose bleeds, sore throat, stridor and tinnitus Eyes: blurred vision, double vision, eye discharge, eye pain, eye redness and photophobia Cardiovascular: chest pain, claudication, leg swelling, orthopnea, palpitations, paroxysmal nocturnal dyspnea Respiratory: cough, hemoptysis, shortness of breath, sputum production or wheezing Gastointestinal: abdominal pain, blood in stool, constipation, diarrhea, heartburn, melena, nausea and vomiting Genitourinary: dysuria, flank pain, frequency, hematuria and urgency Musculoskeletal: back pain, falls, joint pain, myalgias and neck pain Endo: cold intolerance, heat intolerance, polydipsia and polyuria. Heme: anemia, easy bleeding and easy bruising Allergies: environmental allergies, hay fever, hives and rhinorrhea Neurological: dizziness, focal weakness, level of consciousness, seizures, sensory change, speech change, tingling and tremor Psychiatric: depression, hallucinations, insomnia, memory loss, nervous, anxious, substance abuse and suicidal ideals Physical Examination: PHYSICAL EXAMINATION: There were no vitals taken for this visit. CONSTITUTIONAL: Well-developed, well-nourished female in no acute distress. Oriented with normal affect. EYES: ENT: PERRL. EOMI. Sclerae white. EAMs normal. Hearing normal. Nasal mucosa normal Lips, gums and oropharynx: Dentition is normal for age NECK: Supple, trachea is midline, no JVD CV: Regular rate and rhythm. Peripheral pulses: Radial pulses full RESPIRATORY: normal respiratory effort. GASTROINTESTINAL: Soft, ND, NT Small reducible umbilical/incisional hernia MUSCULOSKELETAL: No cyanosis or clubbing. NEURO: No focal deficits, Cranial nerves intact, intact sensation to all four extremities. PSYCH: Alert and oriented, Appropriate. Mood: normal SKIN: Intact without obvious lesions. No palpable nodules LYMPHATICS: No cervical, supraclavicular, epitrochlear or inguinal nodes palpated. Labs/X-ray/Pathology: Labs: Lab Results Component Value Date WHITEBLOODCE 9.3 01/13/2022 HGB 13.4 01/13/2022 HCT 44.3 01/13/2022 PLT 309.0 01/13/2022 CHOL 182 06/30/2021 TRIG 223 (H) 06/30/2021 HDL 56.5 06/30/2021 ALT 17 01/13/2022 AST 23 01/13/2022 NA 134 (L) 01/13/2022 K 4.3 01/13/2022 CL 100 01/13/2022 CREATININE 0.90 02/13/2022 BUN 14 01/13/2022 CO2 26 01/13/2022 TSH 1.100 01/13/2022 HGBA1C 6.5 (H) 01/13/2022 Imaging: US gallbladder FINDINGS: LIVER: The liver demonstrates normal echogenicity without evidence of intrahepatic biliary ductal dilatation. BILIARY SYSTEM: Gallbladder is unremarkable without evidence of pericholecystic fluid, wall thickening or stones. Negative sonographic Marin's sign. Common bile duct is 7.4 mm. RIGHT KIDNEY: The right kidney is grossly unremarkable without evidence of hydronephrosis. PANCREAS: Visualized portions of the pancreas are unremarkable. OTHER: No evidence of right upper quadrant ascites. IMPRESSION: Unremarkable right upper quadrant ultrasound. CT a/p FINDINGS: The pelvis is not included on these images. Imaging of right upper quadrant from April 2021 is reviewed, the gallbladder was unremarkable at that time, common bile duct at that time was slightly over 7 mm. No obvious pathology seen in the liver on the previous ultrasound. The gallbladder on the current study is greatly distended although with no obvious adjacent fluid. No calcified stones are seen noting that most gallstones are not calcified. Adjacent to the gallbladder but within the liver as seen axial image 36 and adjacent, coronal image 45, there is a cystic abnormality with somewhat irregular borders and measuring 22 x 11 x 14 mm. The liver otherwise with no suspicious focal findings. The liver prominent measuring 19.9 cm cephalocaudal. The common bile duct is 8 mm, this is dilated. The pancreas without obvious mass. No pancreatic ductal dilation is identified. There is a moderate size hiatus hernia. The lung bases with mosaic attenuation, this is nonspecific although could be associated with air-trapping. The heart is not enlarged. Some calcifications likely associated with the coronary arteries are seen. There is no free air. There are no abdominal wall hernias containing bowel in the area imaged. The adrenal glands without mass. The spleen no focal abnormality seen, not enlarged. The right kidney a cystic finding upper pole which measures simple fluid Hounsfield unit, 10 mm x 8 mm x 9 mm. No hydronephrosis of either kidney and the included portions of the ureters with no stones. The aorta atherosclerotic with no aneurysm. Included portions of the GI tract noting that oral contrast has been administered with no findings suspicious for pathologic wall thickening or large or small bowel obstruction, again noting the hiatus hernia and substantial air in the lower esophagus. Evaluation for adenopathy with nodes not meeting size criterion for pathologic enlargement in the periportal and peripancreatic regions. The bony structures with no fractures or destructive lesions. Multilevel anterior osteophytes and bony fusion of the particularly lower thoracic spine are seen. IMPRESSION: DILATED COMMON BILE DUCT. NEWLY VISUALIZED CYSTIC ABNORMALITY IN the liver. No definite pancreatic ductal dilation or mass. Distended gallbladder. Consider repeat right upper quadrant ultrasound, or MR CP/MRI for better visualization of the common bile duct and ampullary region. This could also better characterize the cystic liver findings. Additional note of a cyst finding upper pole of the right kidney, also newly visualized as compared to the prior ultrasound. Suzy James M.D. [facility] (office) (pager) documented in this [facility]07-10-2022 Emergency department Note* Adonay Vázquez DO - 04/16/2022 4:11 PM EDT I have personally seen and examined this patient. I have fully participated in the care of this patient. I have reviewed all pertinent clinical information, including history, physical exam and plan. Patient with left-sided neck pain that radiates into the left shoulder. Began on Sunday after mowing her lawn. Pain is worse with palpation and movement of the left neck and left shoulder. CT cervical spine did not reveal any acute abnormalities. She does have some chronic changes consistent with age. X-rays of the left shoulder showed some arthritic changes but no acute findings. She can follow-up with her PCP. We will start her on Flexeril and steroids. She was okay with this plan. Splane to her that she may need an MRI as an outpatient if symptoms worsen or continue. Adonay Vázquez DO 04/16/22 161 * Radha Plaza RN - 04/16/2022 2:15 PM EDT Pt arrives to ED c/o upper back pain and neck pain that radiates into her left shoulder onset Sunday night. Denies injury. States that she push mowed on Sunday. States has been taking ibuprofen, usedBiofreeze without relief. States has had similar pain before but it wasn't this bad and said it wasd/t her DDD. Alert and oriented. Respers easy and unlabored. Ambulates with steady gait. 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 angina pectoris Impaired glucose tolerance Impaired glucose tolerance test Vitamin D deficiency Unspecified vitamin D deficiency [facility]* Diagnosis Upper abdominal pain Abdominal pain, other specified site Essential hypertension Unspecified essential hypertension Impaired glucose tolerance Impaired glucose tolerance test documented in this encounter [facility] noteNo assessment information available [facility] Work Phone: Evaluation note* Diagnosis Screening mammogram, encounter for documented in this [facility]* Diagnosis GERD (gastroesophageal reflux disease)- Primary Esophageal reflux Cervical radiculopathy- Primary Brachial neuritis or radiculitis nos GERD (gastroesophageal reflux disease) Esophageal reflux documented in this encounter [facility]* Diagnosis GERD (gastroesophageal reflux disease)- Primary Esophageal reflux [facility]* Diagnosis Fatima's esophagus with low grade dysplasia- Primary Fatima's esophagus Gastroesophageal reflux disease with esophagitis without hemorrhage documented in this encounter [facility] note* Diagnosis Fatima's esophagus with low grade dysplasia Fatima's esophagus Gastroesophageal reflux disease with esophagitis without hemorrhage documented in this encounter [facility] note* Diagnosis Pneumonia due to COVID-19 virus documented in this encounter [facility] note* Diagnosis Primary osteoarthritis involving multiple joints documented in this encounter [facility] note* Diagnosis Chest pain, unspecified type- Primary documented in this encounter [facility] note* Diagnosis RUQ pain- Primary Abdominal pain, right upper quadrant Nausea Nausea alone documented in this encounter [facility] note* Diagnosis Epigastric pain Abdominal pain, epigastric Chronic right upper quadrant pain Abdominal pain, right upper quadrant documented in this encounter [facility] note* Diagnosis Viral URI with cough- Primary Acute upper respiratory infections of unspecified site documented in this encounter [facility] note* Diagnosis Hyperglycemia- Primary Other abnormal glucose documented in this encounter [facility] note* Diagnosis Screening mammogram, encounter for documented in this encounter [facility] note* Diagnosis Fatima's esophagus with low grade dysplasia- Primary Fatima's esophagus Gastroesophageal reflux disease without esophagitis Esophageal reflux Fatima's esophagus without dysplasia Fatima's esophagus Esophageal dysphagia Dysphagia, pharyngoesophageal phase documented in this encounter [facility] note* Diagnosis Pre-operative examination- Primary Preoperative examination, unspecified Atherosclerosis of ewiiaapaayp coronary artery of ewiiaapaayp heart without angina pectoris Fatima's esophagus without dysplasia Fatima's esophagus Hiatal hernia Diaphragmatic hernia without mention of obstruction or gangrene Essential (primary) hypertension Unspecified essential hypertension Gastroesophageal reflux disease, unspecified whether esophagitis present Hyperlipemia, mixed Mixed hyperlipidemia Class 2 severe obesity due to excess calories with serious comorbidity and body mass index (BMI) of 37.0 to 37.9 in adult (HCC) Type 2 diabetes mellitus without complication, without long-term current use of insulin (HCC) Angina pectoris, unspecified (HCC) Basal cell carcinoma (BCC), unspecified site Congestive heart failure, unspecified HF chronicity, unspecified heart failure type ([facility]) * Assessment & Plan Note - Latisha Calabrese APRN.[employer] CREDIT CARD COLLECTION CLERK - 07/23/2024 10:10 AM EDT Associated Problem(s): CHF (congestive heart failure) ([facility]) Assessment: controlled on rx, following cardiology, last OV requested * Assessment & Plan Note - Latisha Calabrese APRN.ABIGAIL - 07/23/2024 10:09 AM EDT Associated Problem(s): BCC (basal cell carcinoma of skin) Assessment: s/p excision * Assessment & Plan Note - Latisha Calabrese APRN.CNP - 07/23/2024 10:09 AM EDT Associated Problem(s): Angina pectoris, unspecified (HCC) Assessment: following cardiology, controlled on rx, last OV requested * Assessment & Plan Note - Latisha Calabrese APRN.CNP - 07/23/2024 10:05 AM EDT Associated Problem(s): Obesity, unspecified Assessment: Body mass index is 37.79 kg/m . * Assessment & Plan Note - Latisha Calabrese APRN.CNP - 07/23/2024 10:05 AM EDT Associated Problem(s): Type 2 diabetes mellitus without complication (HCC) Assessment: controlled with weekly injectable and oral agent. Reviewed to hold injectable 7 FULL days prior to upcoming procedure, pt verbalized understanding. Last A1c 6.7 07/11/2024 in C/E * Assessment & Plan Note - Latisha Calabrese APRN.CNP - 07/23/2024 10:03 AM EDT Associated Problem(s): GERD (gastroesophageal reflux disease) Assessment: controlled on rx * Assessment & Plan Note - Latisha Calabrese APRN.CNP - 07/23/2024 10:03 AM EDT Associated Problem(s): Fatima's esophagus without dysplasia Assessment: controlled on rx * Assessment & Plan Note - Latisha Calabrese APRN.CNP - 07/23/2024 10:03 AM EDT Associated Problem(s): Hiatal hernia Assessment: small sliding type per CT 09/2023 * Assessment & Plan Note - Latisha Calabrese APRN.CNP - 07/23/2024 10:01 AM EDT Associated Problem(s): 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 Denies CP, palpitations, sob, new or worsening cardiac symptoms. Following cardiology, last OV * Assessment & Plan Note - Latisha Calabrese APRN.CNP - 07/23/2024 9:57 AM EDT Associated Problem(s): Hyperlipemia, mixed Assessment: c/w statin * Assessment & Plan Note - Latisha Calabrese APRN.CNP - 07/23/2024 9:57 AM EDT Associated Problem(s): Essential (primary) hypertension Assessment: controlled on rx Last 14 BP Last 14 Encounter BP Readings: Date: BP: 07/21/2022 124/60 07/21/2022 147/65 07/04/2022 168/85 documented in this encounter [facility] note* Diagnosis Degeneration, intervertebral disc, cervical- Primary Degeneration of cervical intervertebral disc Strain of neck muscle, initial encounter Acute pain of left shoulder [facility] Diagnosis Pre-operative examination- Primary Preoperative examination, unspecified Atherosclerosis of ewiiaapaayp coronary artery of ewiiaapaayp heart without angina pectoris Fatima's esophagus without dysplasia Fatima's esophagus Hiatal hernia Diaphragmatic hernia without mention of obstruction or gangrene Essential (primary) hypertension Unspecified essential hypertension Gastroesophageal reflux disease, unspecified whether esophagitis present Hyperlipemia, mixed Mixed hyperlipidemia Class 2 severe obesity due to excess calories with serious comorbidity and body mass index (BMI) of 37.0 to 37.9 in adult ([facility]) Type 2 diabetes mellitus without complication, without long-term current use of insulin ([facility]) Angina pectoris, unspecified ([facility]) Basal cell carcinoma (BCC), unspecified site Congestive heart failure, unspecified HF chronicity, unspecified heart failure type ([facility]) Type 2 diabetes mellitus without complication, without long-term current use of insulin ([facility])- Primary Essential (primary) hypertension Unspecified essential hypertension Hyperlipemia, mixed Mixed hyperlipidemia Congestive heart failure, unspecified HF chronicity, unspecified heart failure type (HCC) Atherosclerosis of ewiiaapaayp coronary artery of ewiiaapaayp heart without angina pectoris Fatima's esophagus without dysplasia Fatima's esophagus Dysphagia, unspecified type Gastroesophageal reflux disease, unspecified whether esophagitis present Basal cell carcinoma (BCC), unspecified site Encounter for screening mammogram for breast cancer Abnormal urine odor Other nonspecific finding on examination of urine Class 2 severe obesity due to excess calories with serious comorbidity and body mass index (BMI) of 37.0 to 37.9 in adult ([facility]) Encounter for screening examination for other mental health and behavioral disorders documented in this encounter [facility] note* Diagnosis Pre-operative examination- Primary Preoperative examination, unspecified Atherosclerosis of ewiiaapaayp coronary artery of ewiiaapaayp heart without angina pectoris Fatima's esophagus without dysplasia Fatima's esophagus Hiatal hernia Diaphragmatic hernia without mention of obstruction or gangrene Essential (primary) hypertension Unspecified essential hypertension Gastroesophageal reflux disease, unspecified whether esophagitis present Hyperlipemia, mixed Mixed hyperlipidemia Class 2 severe obesity due to excess calories with serious comorbidity and body mass index (BMI) of 37.0 to 37.9 in adult ([facility]) Type 2 diabetes mellitus without complication, without long-term current use of insulin ([facility]) Angina pectoris, unspecified (HCC) Basal cell carcinoma (BCC), unspecified site Congestive heart failure, unspecified HF chronicity, unspecified heart failure type ([facility]) Dietary counseling- Primary Dietary surveillance and counseling Fatima's esophagus without dysplasia Fatima's esophagus Type 2 diabetes mellitus without complication, without long-term current use of insulin ([facility]) Gastroesophageal reflux disease, unspecified whether esophagitis present documented in this encounter [facility] note* Diagnosis Pre-operative examination- Primary Preoperative examination, unspecified Atherosclerosis of ewiiaapaayp coronary artery of ewiiaapaayp heart without angina pectoris Fatima's esophagus without dysplasia Fatima's esophagus Hiatal hernia Diaphragmatic hernia without mention of obstruction or gangrene Essential (primary) hypertension Unspecified essential hypertension Gastroesophageal reflux disease, unspecified whether esophagitis present Hyperlipemia, mixed Mixed hyperlipidemia Class 2 severe obesity due to excess calories with serious comorbidity and body mass index (BMI) of 37.0 to 37.9 in adult ([facility]) Type 2 diabetes mellitus without complication, without long-term current use of insulin ([facility]) Angina pectoris, unspecified (HCC) Basal cell carcinoma (BCC), unspecified site Congestive heart failure, unspecified HF chronicity, unspecified heart failure type ([facility]) Encounter for screening mammogram for breast cancer documented in this encounter [facility] note* Diagnosis Pre-operative examination- Primary Preoperative examination, unspecified Atherosclerosis of ewiiaapaayp coronary artery of ewiiaapaayp heart without angina pectoris Fatima's esophagus without dysplasia Aftima's esophagus Hiatal hernia Diaphragmatic hernia without mention of obstruction or gangrene Essential (primary) hypertension Unspecified essential hypertension Gastroesophageal reflux disease, unspecified whether esophagitis present Hyperlipemia, mixed Mixed hyperlipidemia Class 2 severe obesity due to excess calories with serious comorbidity and body mass index (BMI) of 37.0 to 37.9 in adult ([facility]) Type 2 diabetes mellitus without complication, without long-term current use of insulin ([facility]) Angina pectoris, unspecified (HCC) Basal cell carcinoma (BCC), unspecified site Congestive heart failure, unspecified HF chronicity, unspecified heart failure type ([facility]) Fatima's esophagus without dysplasia Fatima's esophagus Dysphagia, unspecified type [facility] Diagnosis Pre-operative examination- Primary Preoperative examination, unspecified Atherosclerosis of ewiiaapaayp coronary artery of ewiiaapaayp heart without angina pectoris Fatima's esophagus without dysplasia Fatima's esophagus Hiatal hernia Diaphragmatic hernia without mention of obstruction or gangrene Essential (primary) hypertension Unspecified essential hypertension Gastroesophageal reflux disease, unspecified whether esophagitis present Hyperlipemia, mixed Mixed hyperlipidemia Class 2 severe obesity due to excess calories with serious comorbidity and body mass index (BMI) of 37.0 to 37.9 in adult (HCC) Type 2 diabetes mellitus without complication, without long-term current use of insulin ([facility]) Angina pectoris, unspecified (HCC) Basal cell carcinoma (BCC), unspecified site Congestive heart failure, unspecified HF chronicity, unspecified heart failure type ([facility]) Esophageal dysphagia Dysphagia, pharyngoesophageal phase Fatima's esophagus without dysplasia Fatima's esophagus Dysphagia, unspecified type Atherosclerotic heart disease of 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 angina pectoris Coronary atherosclerosis of ewiiaapaayp coronary artery Angina pectoris, unspecified ([facility]) BCC (basal cell carcinoma of skin) Basal cell carcinoma of skin, site unspecified CHF (congestive heart failure) (HCC) Congestive heart failure, unspecified GERD (gastroesophageal reflux disease) Esophageal reflux History of [place] (myocardial infarction) Old myocardial infarction Hyperlipemia, mixed Mixed hyperlipidemia Type 2 diabetes mellitus without complication ([facility]) Type II or unspecified type diabetes mellitus without mention of complication, not stated as uncontrolled documented [facility] this encounter [facility]* Diagnosis Food impaction of esophagus, initial encounter- Primary [facility]* Diagnosis Onset Date Resolution Status Admit Date Essential (primary) hypertension chronic February 23, 2025 12:54pm Hyperlipidemia chronic February 23, 2025 12:54pm Dyspnea on exertion resolved February 052024 12:54pm History of coronary artery stent placement April 19, 2020 resolved February 23, 2025 12:54pm [facility] Work Phone: Evaluation note* Diagnosis Palpitations- Primary documented in this encounter [facility] Additional Instructions Closely watch your oxygen levels periodically. If you stay below 90% for more than a minute or so, and/or you are feeling like your breathing is getting worse, return to the emergency department for further evaluation.[facility] Work Phone: Hospital Discharge instructions* Attachments The following attachments cannot be sent through Care Everywhere. * Cervical Radiculopathy ([place]ian [place]) [facility] Additional Instructions Zithromax which is the antibiotic 1 pill once a day after lunch for the next 4 days starting on Sunday. Plenty of fluids and rest. Tylenol for any fever. Follow-up with your doctor if not improving. Return if worse.[facility] Work Phone: Hospital Discharge instructions Additional Instructions The cough from pneumonia can last over a month. Your chest x-ray looks improved from previous. I would take the Tussin cough medication you have at home and follow-up with your primary care doctor. If symptoms worsen come back to the emergency room.[facility] Work Phone: Hospital Discharge instructions Additional Instructions Follow-up with your PCP and return for any worsening of your symptoms.[facility] Work Phone: Hospital Discharge instructions* Attachments The following attachments cannot be sent through Care Everywhere. * Cervical Disc Disease ([place]ian [place]) * Shoulder Sprain ([place]ian [place]) * Cervical Strain or Sprain: Rehab Exercises ([place]ian [place]) [facility] Procedure Authorization (Routine) Status Reason Specialty Diagnoses / Procedures Referre d By Contact Referred To Contact Closed Diagnoses Epigastric abdominal pain Procedures US RT Upper Quadrant Ralph Gibson DO [address] [place] [id number] Electronically signed by Ralph Gibson DO at [facility] for referral (narrative)* Outpatient Procedure (Routine) - Authorized Specialty Diagnoses / Procedures Referred By Luciano sifuentes Referred To Contact [facility] Diagnoses Fatima's esophagus with low grade dysplasia Gastroesophageal reflux disease with esophagitis without hemorrhage Procedures EGD - THERAPEUTIC, EUS, OR TUBE INTERVENTIONS EGD ABLATE TUMOR POLYP/LESION W/DILATION& WIRE Misti Palafox MD [address] [facility] [address] [place] [id number] Referral ID Status Reason Start Date Expiration Date Visits Requested Visits Authorized [id number] Authorized Auto-Generat ed Referral 07/04/2022 07/04/2023 1 1 [facility] for referral (narrative)* Outpatient Procedure (Routine) - Closed Specialty Diagnoses / Procedures [facility] Referred To Contact [facility] [place] Diagnoses Fatima's esophagus with low grade dysplasia Gastroesophageal reflux disease with esophagitis without hemorrhage Procedures EGD - THERAPEUTIC, EUS, OR TUBE INTERVENTIONS EGD ABLATE TUMOR POLYP/LESION W/DILATION& WIRE Misti Palafox MD [address] [place], [place] [id number] [place] [id number] Referral ID Status Reason Start Date Expiration Date V isits Requested Visits Authorized [id number] Closed Auto-Generate d Referral 07/04/2022 07/04/2023 1 1 [facility] for referral (narrative)* Procedure Authorization (Urgent) - Incomplete Specialty Diagnoses / Procedures Referred By Luciano sifuentes Referred To Contact [facility] Diagnoses Chest pain, unspecified type Procedures Nuclear Stress Test - Pharmacological IN CV STRS TST XERS&/OR RX CONT ECG TRCG ONLY CHG MYOCARDIAL SPECT MULTIPLE STUDIES Derrick Esquivel DO [address] [id number] Referral ID Status Reason Start Date Expiration Date V isits Requested Visits Authorized [id number] Incomplete 08/02/2023 09/02/2024 1 1 * Consultation (Urgent) - Open Specialty Diagnoses / Procedures Referred By Luciano t Referred To Contact Family Medicine Diagnoses Chest pain, unspecified type Derrick Esquivel DO [address] [place] [address] [facility] [address] [place] [address] Referral ID Status Reason Start Date Expiration Date Visits Re quested Visits Authorized [id number] Open 08/02/2023 09/02/2024 1 1 [facility] for referral (narrative)* Procedure Authorization (Routine) - Closed Specialty Diagnoses / Procedures Referred By Luciano sifuentes Referred To Contact Radiology Diagnoses Epigastric pain Chronic right upper quadrant pain Procedures US [place] [address] [place] [address] [facility] [address] [place] [address] Referral ID Status Reason Start Date Expiration Date Visits Re quested Visits Authorized [id number] Closed 09/26/2023 10/07/2023 1 1 [employer] [facility] for referral (narrative)* Outpatient Procedure (Routine) - Authorized Specialty Diagnoses / Procedures Referred By Luciano sifuentes Referred To Contact [facility] Diagnoses Fatima's esophagus with low grade dysplasia Gastroesophageal reflux disease without esophagitis Procedures EGD DIAGNOSTIC ESOPHAGOGASTRODUODENOSC OPY TRANSORAL DIAGNOSTIC Derrick Manriquez MD [address], [place] [address] [facility] [address] [place] [address] Referral ID Status Reason Start Date Expiration Date Visits Requested Visits Authorized [id number] Authorized Auto-Generat ed Referral 06/18/2024 06/18/2025 1 1 * Consult, Test, Treat (Routine) - Authorized Specialty Diagnoses / Procedures Referred By Luciano sifuentes Referred To Contact Diagnoses Fatima's esophagus with low grade dysplasia Gastroesophageal reflux disease without esophagitis Procedures REFER TO [facility] - PREOPERATIVE OPTIMIZATION OFFICE/OUTPATIENT NEW HIGH MDM 60 MINUTES Derrick Manriquez MD [address] [place] [address] Referral ID Status Reason Start Date Expiration Date Visits Requested Visits Authorized [id number] Authorized PCP Requested Referral 06/18/2024 06/18/2025 1 1 * Outpatient Procedure (Routine) - New Request Specialty Diagnoses / Procedures Referred By Luciano sifuentes Referred [facility] Diagnoses Fatima's esophagus with low grade dysplasia Gastroesophageal reflux disease without esophagitis Procedures ECG COMPLETE ECG ROUTINE ECG W/LEAST 12 LDS W/I&R Derrick Manriquez MD [address] [place] [address] [facility] [address] [place] [address] Referral ID Status Reason Start Date Expiration Date Visits Requested Visits Authorized [id number] New Request Auto-Generat ed Referral 06/18/2024 06/18/2025 1 1 [facility] for referral (narrative)* Diagnostic Procedure Only (Routine) - Authorized Specialty Diagnoses / Procedures Referred By Luciano sifuentes Referred To Contact [facility] Diagnoses Encounter for screening mammogram for breast cancer Procedures MARY SCREENING W PADMINI SCREENING DIGITAL BREAST TOMOSYNTHESIS BI SCREENING MAMMOGRAPHY BI 2-VIEW BREAST INC Esteban Mishra PA-C [id number] [address] [place] [address] [facility] [address] [place] [address] Referral ID Status Reason Start Date Expiration Date Visits Requested Visits Authorized [id number] Authorized Auto-Generat ed Referral 10/22/2024 11/21/2025 1 1 * Consult, Test, Treat (Routine) - Authorized Specialty Diagnoses / Procedures Referred By Luciano sifuentes Referred To Contact Nutrition Diagnoses Fatima's esophagus without dysplasia Type 2 diabetes mellitus without complication, without long-term current use of insulin (HCC) Gastroesophageal reflux disease, unspecified whether esophagitis present Procedures CONSULT TO NUTRITION THERAPY MEDICAL NUTRITION ASSMT&IVNTJ INDIV EACH [address] [place] Esteban Vázquez PA-C [id number] [address] [place] [address] Referral ID Status Reason Start Date Expiration Date Visits Requested Visits Authorized [id number] Authorized PCP Requested Referral 10/22/2024 10/22/2025 1 4 * Consult, Test, Treat (Routine) - Authorized Specialty Diagnoses / Procedures Referred By Luciano sifuentes Referred To Contact General Surgery Diagnoses Fatima's esophagus without dysplasia Dysphagia, unspecified type Procedures CONSULT TO GENERAL SURGERY OFFICE/OUTPATIENT [facility] 60 MINUTES Esteban Vázquez PA-C [id number] [place] [address] Referral ID Status Reason Start Date Expiration Date Visits Requested Visits Authorized [id number] Authorized PCP Requested Referral 10/22/2024 10/22/2025 1 1 [facility]No reason for referral information availableHarrisville [facility] Work Phone: Reason for visit Narrative* Procedure Authorization (Routine) Status Reason Specialty Diagnoses / Procedures Referre d By Contact Referred To Contact Closed Diagnoses Epigastric abdominal pain Procedures US RT Upper Quadrant Ralph Gibson, [address] [place] [address] [facility] N[facility]* Outpatient Procedure (Routine) - Closed Specialty Diagnoses / Procedures Referred By Luciano sifuentes Referred To Contact [facility] Diagnoses Fatima's esophagus with low grade dysplasia Gastroesophageal reflux disease with esophagitis without hemorrhage Procedures EGD - THERAPEUTIC, EUS, OR TUBE INTERVENTIONS EGD ABLATE TUMOR POLYP/LESION W/DILATION& WIRE Misti Palafox MD [address] [place] [address] [facility] [address] [place] [address] Referral ID Status Reason Start Date Expiration Date V isits Requested Visits Authorized [id number] Closed Auto-Generate d Referral 07/04/2022 07/04/2023 1 1 [facility] for visit Narrative* Procedure Authorization (Routine) - Closed Specialty Diagnoses / Procedures Referred By Yinaac t Referred To Contact Radiology Diagnoses Epigastric pain Chronic right upper quadrant pain Procedures US [place] [address] [place] [address] [facility] [address] [place] [address] Referral ID Status Reason Start Date Expiration Date Visits Re quested Visits Authorized [id number] Closed 09/26/2023 10/07/2023 1 1 [facility] for visit Narrative* Diagnostic Procedure Only (Routine) - Closed Specialty Diagnoses / Procedures Referred By Contac t Referred To Contact [facility] Diagnoses Encounter for screening mammogram for breast cancer Procedures MARY SCREENING W PADMINI SCREENING DIGITAL BREAST TOMOSYNTHESIS BI SCREENING MAMMOGRAPHY BI 2-VIEW BREAST INC Esteban Mishra PA-C [id number] [address] [place] [address] [facility] [address] [place] [address] Referral ID Status Reason Start Date Expiration Date V isits Requested Visits Authorized [id number] Closed Auto-Generate d Referral 10/22/2024 11/21/2025 1 1 [facility] for visit Narrative* Outpatient Procedure (Routine) - Closed Specialty Diagnoses / Procedures Referred By Contac t Referred To Contact [facility] Diagnoses Fatima's esophagus without dysplasia Dysphagia, unspecified type Procedures EGD - THERAPEUTIC, EUS, OR TUBE INTERVENTIONS EGD BALLOON DILATION ESOPHAGUS <30 MM DIAM Bib Restrepo PA-C [address] [place] [id number] Phone: tel: fax: [facility] [address] [place] [address] Referral ID Status Reason Start Date Expiration Date V isits Requested Visits Authorized [id number] Closed Auto-Generate d Referral 11/18/2024 11/18/2025 1 1 [facility] Summary Purpose Family History No Family History Records Found Relationship Condition Age at Onset Recorded Date/T connie Not Specified Coronary artery disease Unknown sister Myocardial infarction Unknown Malignant neoplasm Unknown sister Cardiac disease Unknown Myocardial infarction 69 mother Myocardial infarction 63 brother Malignant neoplasm Unknown Advance Directives No Advanced Directives Records FoundDocuments on File Type Date Recorded Patient Copy Reader Expl anation Advance Directives and Living Will Power of Design Editor Documents on File Type Date Recorded Patient Copy Reader Expl anation Advance Directives and Living Will Power of Design Editor Documents on File Type Date Recorded Patient Copy Reader Expl anation Advance Directives and Living Will Power of Design Editor DNR Documentation Advance Directive Response Recorded Date/ Time Advance Directives Yes March 28 8:56am Living Will No March 13, 2022 1 1:39am Power of Design Editor No March 13, 2022 11:39am Advance Directive Response Recorded Date/ Time Advance Directives Yes March 28 7:56am Living Will No December 09, 2022 4:29pm Power of Design Editor No December 09 4:29pm Advance Directive Response Recorded Date/ Time Name of Medical Power of Design Editor Terell Deng December 23, 2022 8:20pm Advance Directives Yes March 28 8:56am Living Will Yes December 23, 2022 8:20pm Power of Design Editor Yes December 23 8:20pm Advance Directive Response Recorded Date/ Time Advance Directives Yes March 28 7:56am Living Will No August 13 1:37pm Power of Design Editor No August 13, 2023 1:37pm Advance Directive Response Recorded Date/ Time Advance Directives Yes March 28 8:56am Chief Complaint and Reason for Visit Chief Complaint SOB, cough, numbness , pain to shoulder Chief Complaint SOB Chief Complaint SOB COUGH Chief Complaint CHEST PAIN Chief Complaint Admit Date BP ISSUES/SOB February 23, 2025 12:54 pm Reason for Visit Admit Date Essential (primary) hypertension February 12:54pm Hyperlipidemia February 23, 2025 12:54 pm Dyspnea on exertion February 23, 2025 12:54 pm History of coronary artery stent placeme nt February 23, 2025 12:54pm Reason for Referral Specialty Diagnoses / Procedures Referred By Luciano t Referred To Contact General Surgery Diagnoses RUQ pain Nausea Santo Elam MD [address] [place] [address] [facility] [place] [address] [place] [address] Referral ID Status Reason Start Date Expiration Date Visits Re quested Visits Authorized [id number] Open 09/23/2023 10/24/2024 1 1 Additional Source Comments INFORMATION SOURCE (unrecogn ized section and content) DATE CREATED AUTHOR [facility]/03/2018 [facility] DATE CREATED AUTHOR AUTHOR'S ORGANIZ ATION 05/01/2020 [facility] DATE CREATED AUTHOR AUTHOR'S ORGANIZ ATION 01/17/2022 [facility] DATE CREATED AUTHOR AUTHOR'S ORGANIZ ATION 09/23/2023 [facility] DATE CREATED AUTHOR AUTHOR'S ORGANIZ ATION 08/01/2024 [facility] DATE CREATED AUTHOR AUTHOR'S ORGANIZ ATION 12/18/2024 [facility] DATE CREATED AUTHOR AUTHOR'S ORGANIZ ATION 03/16/2025 [facility] DATE CREATED AUTHOR AUTHOR'S ORGANIZ ATION 03/20/2025 [facility] re System Care Teams (unrecognized sec tion and content) [place] Commissioner Relationship Specialty Start Date End Date Ralph Gibson DO PCP - General Family Medicine 04/01/15 County Commissioner Relationship Specialty Start Date End Date Ralph Gibson DO PCP - General Family Medicine 04/01/15 County Commissioner Relationship Specialty Start Date End Date Ralph Gibson DO PCP - General Family Medicine 04/01/15 County Commissioner Relationship Specialty Start Date End Date Ralph Gibson DO PCP - General Family Medicine 04/01/15 County Commissioner Relationship Specialty Start Date End Date Ralph Gibson DO PCP - General Family Medicine 04/01/15 County Commissioner Relationship Specialty Start Date End Date Ralph Gibson Derrick, DO [address] [place] [address] PCP - General Family Medicine 03/16/20 Jacque Isabel CNP Referring Family Medicine 03/16/20 [place] Commissioner Relationship Specialty Start Date End Date Ralph Gibson, DO [address] [place] [address] PCP - General Family Medicine 03/16/20 Jacque Isabel CNP Referring Family Medicine 03/16/20 County Commissioner Relationship Specialty Start Date End Date Ralph Gibson, DO [address] [place] [address] PCP - General Family Medicine 03/16/20 Cindy Isabel, BANK CREDIT CARD COLLECTION CLERK Referring Family Medicine 03/16/20 County Commissioner Relationship Specialty Start Date End Date Ralph Gibson, DO [address] [place] [address] PCP - General Family Medicine 03/16/20 Cindy Isabel, BANK CREDIT CARD COLLECTION CLERK Referring Family Medicine 03/16/20 Team Status: Active Member Role Status Dates Dr. Ralph Gibson DO Primary Care Provider Active Team Status: Inactive Member Role Status Dates Dr. Ralph Gibson DO Primary Care Provider Active Dr. Jacques Morales MD Emergency Provider Active Team Status: Inactive Member Role Status Dates Dr. Ralph Gibson DO Primary Care Provider Active Dr. Jacques Morales MD Attending Provider, Emergency Pro vider Active Team Status: Inactive Member Role Status Dates Dr. Ralph Gibson DO Primary Care Provider Active Moshe Jackson MD Emergency Provider Active County Commissioner Relationship Specialty Start Date End Date Ralph Gibson DO PCP - General Family Medicine 04/01/15 County Commissioner Relationship Specialty Start Date End Date Ralph Gibson DO PCP - General Family Medicine 04/01/15 County Commissioner Relationship Specialty Start Date End Date Ralph Gibson DO PCP - General Family Medicine 04/01/15 Team Status: Inactive Member Role Status Dates Dr. Ralph Gibson DO Primary Care Provider Active Dr. Richard Lara , Emergency Provider Active County Commissioner Relationship Specialty Start Date End Date Ralph Gibson DO PCP - General Family Medicine 04/01/15 County Commissioner Relationship Specialty Start Date End Date Ralph Gibson DO PCP - General Family Medicine 04/01/15 County Commissioner Relationship Specialty Start Date End Date Ralph Gibson DO PCP - General Family Medicine 04/01/15 County Commissioner Relationship Specialty Start Date End Date Ralph Gibson DO PCP - General Family Medicine 04/01/15 County Commissioner Relationship Specialty Start Date End Date Ralph Gibson DO PCP - General Family Medicine 04/01/15 County Commissioner Relationship Specialty Start Date End Date Ralph Gibson DO [facility] [address] [place] [address] PCP - General Family Medicine 03/16/20 Cindy Isabel, ABIGAIL Referring Family Medicine 03/16/20 County Commissioner Relationship Specialty Start Date End Date Ralph Gibson DO [facility] [address] [address] PCP - General Family Medicine 03/16/20 Cindy Isabel, ABIGAIL Referring Family Medicine 03/16/20 County Commissioner Relationship Specialty Start Date End Date Ralph Gibson DO [facility] [address] [address] PCP - General Family Medicine 03/16/20 Cindy Isabel, ABIGAIL Referring Family Medicine 03/16/20 County Commissioner Relationship Specialty Start Date End Date Ralph Gibson DO PCP - General Family Medicine 04/01/15 County Commissioner Relationship Specialty Start Date End Date Esteban Vázquez PA-C [address] [place] [address] PCP - General Family Medicine 10/22/24 Cindy Isabel CNP Referring Family Medicine 03/16/20 County Commissioner Relationship Specialty Start Date End Date Esteban Vázquez PA-C [address] [place] [address] PCP - General Family Medicine 10/22/24 Cindy Isabel CNP Referring Family Medicine 03/16/20 County Commissioner Relationship Specialty Start Date End Date Esteban Vázquez PA-C [address] [place] [address] PCP - General Family Medicine 10/22/24 Cindy Isabel CNP Referring Family Medicine 03/16/20 County Commissioner Relationship Specialty Start Date End Date Esteban Vázquez PA-C [address] [place] [address] PCP - General Family Medicine 10/22/24 Cindy Isabel CNP Referring Family Medicine 03/16/20 County Commissioner Relationship Specialty Start Date End Date Esteban Vázquez PA-C [address] [place] [address] PCP - General Family Medicine 10/22/24 Cindy Isabel CNP Referring Family Medicine 03/16/20 County Commissioner Relationship Specialty Start Date End Date Esteban Vázquez PA-C [address] [place] [address] PCP - General Family Medicine 10/22/24 Cindy Isabel CNP Referring Family Medicine 03/16/20 County Commissioner Relationship Specialty Start Date End Date Esteban Vázquez PA-C [address] [place] [address] PCP - General Family Medicine 10/22/24 Cindy Isabel CNP Referring Family Medicine 03/16/20 County Commissioner Relationship Specialty Start Date End Date Esteban Vázquez PA-C [address] [place] [address] PCP - General Family Medicine 10/22/24 Cindy Isabel CNP Referring Family Medicine 03/16/20 County Commissioner Relationship Specialty Start Date End Date Esteban Vázquez PA-C [address] [place] [address] PCP - General Family Medicine 10/22/24 Cindy Isabel CNP Referring Family Medicine 03/16/20 County Commissioner Relationship Specialty Start Date End Date Ralph Gibson DO PCP - General Family Medicine 04/01/15 Team Status: Inactive Member Role Status Dates Dr. Ralph Gibson DO Primary Care Provider Active Start: February 23, 2025 End: February 23, 2025 Dr. Ralph Gibson DO Referring Provider Active Start: February 23, 2025 End: February 23, 2025 Layla GRIFFITHS, PA Attending Provider Active Start: February 23, 2025 End: February 23, 2025 County Commissioner Relationship Specialty Start Date End Date Ralph Gibson DO PCP - General Family Medicine 04/01/15 Goals (unrecognized section and content) Goals may be documented in a n alternate sectionGoals may be documented in an alternate sectionGoals may be documented in an alternate sectionGoals may be documented in an alternate sectionGoals may be documented in an alternate section Reason for Visit (unrecogniz ed section and content) Reason Comments Neck Pain Shoulder Pain Specialty Diagnoses / Procedures Referred By Luciano sifuentes Referred To Contact Diagnoses GERD (gastroesophageal reflux disease) K21.9 (ICD-10-CM) - 530.81 (ICD-9-CM) - GERD (gastroesophageal reflux disease) Procedures Case Request Operating Room: [facility]STRODU[facility]COPY IN ESOPHAGOGASTRODUODENOSCOPY TRANSORAL DIAGNOSTIC 61674 - IN ESOPHAGOGASTRODUODENOSCOPY TRANSORAL DIAGNOSTIC Suzy James MD [facility] [employer] [place] [id number] Referral ID Status Reason Start Date Expiration Date V isits Requested Visits Authorized [id number] New Request 04/11/2022 05/12/2023 1 1 Reason Comments severe dysplasia Reason Comments Appointment Confirmation Reason Comments Received Outside Medical Records Reason Comments Chest Pain Reason Comments Nausea Abdominal Pain Reason Comments Cough Reason Comments Hyperglycemia Reason Comments Throat Problem Reason Comments Request Outside Medical Records Reason Comments Neck Pain Reason Comments general surgery Reason Comments mammogram Reason Comments Results Reason Comments Establish Care Reason Comments Assessment Patient Education Specialty Diagnoses / Procedures Referred By Luciano sifuentes Referred To Contact Nutrition Diagnoses 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 Dysphagia, unspecified type Procedures CONSULT TO GENERAL SURGERY OFFICE/OUTPATIENT NEW HIGH MDM 60 MINUTES Esteban Vázquez PA-C [address] [place] [address] Phone: tel: fax: Referral ID Status Reason Start Date Expiration Date V isits Requested Visits Authorized [id number] Closed PCP Requested Referral 10/22/2024 10/22/2025 1 1 Reason Onset Date Comments Results 11/19/2024 Mammo Reason Comments Other Food stuck Reason Comments Palpitations Shortness of Breath Scheduled Active and Recently Administ ered Medications (unrecognized section and content) Medication Order 04/14/2022 04/15/2022 04/16/2022 hydrocodone-acetaminophen (NORCO) 5-325 MG 1 tablet (COMPLETED) 1 tablet, Oral, NOW, 1 dose, On Sun04/16/22 at 1513, Maximum dose of acetaminophen is 4000 mg from all sources in 24 hours. 1517 (Given - Provid er: Brett Billy LPN) Continuous Medication Order 05/21/2022 05/22/2022 05/23/2022 0.9% NaCl infusion Intravenous, at 100 mL/hr, CONTINUOUS, Starting on Sun05/23/22 at 1030, Until Discontinued, Pre-op (OPS) 1032 (New Bag - Prov ider: Erik Waddell RN)1126 (Infusion Complete - Provider: Jossie Matta RN) PRN Medication Order 05/21/2022 05/22/2022 05/23/2022 fentaNYL Citrate (PF) (SUBLIMAZE) 100 MCG/2ML injection PRN, Starting on Sun05/23/22 at 1038, Until Discontinued, Intra-op 1038 (Given - Provid er: Diann Cabrera RN) midazolam hcl (VERSED) injection PRN, Starting on Sun05/23/22 at 1038, Until Discontinued, Intra-op 1038 (Given - Provid er: Diann Cabrera RN)1040 (Given - Provider: Diann Cabrera RN)1045 (Given - Provider: Diann Cabrera RN)1046 (Given - Provider: Diann Cabrera RN)1050 (Given - Provider: Diann Cabrera RN) tetracaine-benzocaine (CETACAINE) PRN, Starting on Sun05/23/22 at 1038, Until Discontinued, Intra-op 1038 (Given - Provid er: Diann Cabrera RN) Scheduled Medication Order 07/31/2023 08/01/2023 08/02/2023 Aspirin 325 MG tablet 325 mg (COMPLETED) 325 mg, Oral, NOW, 1 dose, On More[place] 08/02/23 at 0330 0250 (Given - Provid er: Daniela Centeno RN) Scheduled Medication Order 09/21/2023 09/22/2023 09/23/2023 Famotidine (PF) (PEPCID) injection 20 mg (COMPLETED) 20 mg, IV Push, NOW, 1 dose, On 09/23/23 at 0745, Dilute with 0.9% Sodium Chloride to 10 ml. Give no faster than 10 mg/min. 0743 (Given - Provid er: Zurdo Adler RN) LOCM iodixanol (VISIPAQUE 320 MG/ML) 320 MG/ML injection 75 mL (COMPLETED) 75 mL, Intravenous, ONCE, 1 dose, On 09/23/23 at 0815, Radiology 0740 (Given - Provid er: Mary Huff RT) PRN Medication Order 09/21/2023 09/22/2023 09/23/2023 HYDROmorphone (DILAUDID) injection 0.5 mg 0.5 mg, IV Push, EVERY 2 HOURS PRN, Severe Pain, 3 doses, Starting on 09/23/23 at 0709, Until Discontinued, Caution: This medication looks and/or sounds like another medication. 0801 (Not Given - Pr ovider: Zurdo Adler RN - Reason: Patient/family refused) ondansetron hcl (ZOFRAN) injection 4 mg 4 mg, IV Push, EVERY 6 HOURS PRN, Nausea and/or Vomiting, 3 doses, Starting on 09/23/23 at 0709, Until Discontinued, Caution: This medication looks and/or sounds like another medication. 0801 (Not Given - Pr ovider: Zurdo Adler RN - Reason: Patient/family refused) Scheduled Medication Order 09/28/2023 09/29/2023 09/30/2023 Albuterol Inhaler (PROVENTIL) 1 home pack 1 packet (COMPLETED) 1 packet, Inhalation, PRIOR TO DISCHARGE, 1 dose, On 09/30/23 at 0045, packet given to pt. per physician for home self.administration 0011 (Dispensed to Patient by Physician/Other Qualified Staff Member - Provider: Sharri Ríos RN - Comment: take home medication) Albuterol nebulizer soln 2.5 mg (COMPLETED) 2.5 mg, Nebulization, NOW, 1 dose, On 09/29/23 at 2300 2230 (Given - Provider: Saida Gonzalez, BRINELL TESTER) benzonatate (TESSALON) capsule 100 mg (COMPLETED) 100 mg, Oral, NOW, 1 dose, On 09/30/23 at 0045, Caution: Do not crush or chew. Can cause local anesthesia of the oral mucosa; choking could occur. 0011 (Given - Provid er: Sharri Ríos RN) Dexamethasone (DECADRON) injection 5 mg (COMPLETED) 5 mg, Oral, NOW, 1 dose, On 09/29/23 at 2300 2254 (Given - Provider: Yissel Loyola LPN) Scheduled Medication Order 08/12/2024 08/13/2024 08/14/2024 cyclobenzaprine (FLEXERIL) tablet 10 mg (COMPLETED) 10 mg, Oral, NOW, 1 dose, On More[place] 08/14/24 at 1845 1807 (Given - Provid er: Yissel Loyola LPN) hydrocodone-acetaminophen (NORCO) 5-325 MG 1 tablet (COMPLETED) 1 tablet, Oral, NOW, 1 dose, On [place] 08/14/24 at 2000, Maximum dose of acetaminophen is 4000 mg from all sources in 24 hours. 2007 (Given - Provid er: Yissel Loyola LPN) Ketorolac (TORADOL) injection 15 mg (COMPLETED) 15 mg, Intramuscular, NOW, 1 dose, On [place] 08/14/24 at 1845 1807 (Given - Provid er: Yissel Loyola LPN) Scheduled Medication Order 01/19/2025 01/20/2025 01/21/2025 Glucagon (human recombinant) injection 1 mg (COMPLETED) 1 mg, IV Push, NOW, 1 dose, On Sun01/21/25 at 1730 1649 (Given - Provid er: Anjana Gómez RN) lactated ringers infusion (COMPLETED) Intravenous, at 50 mL/hr, ONCE, 1 dose, On Sun01/21/25 at 2015, Pre-op (OPS) 1938 (New Bag - Prov ider: Delmy Rader RN) ondansetron hcl (ZOFRAN) injection 4 mg (COMPLETED) 4 mg, IV Push, NOW, 1 dose, On Sun01/21/25 at 1730, Caution: This medication looks and/or sounds like another medication. 1649 (Given - Provid er: Anjana Gómez RN) PRN Medication Order 01/19/2025 01/20/2025 01/21/2025 fentaNYL Citrate (PF) (SUBLIMAZE) 100 MCG/2ML injection (CANCELED) PRN, Starting on Sun01/21/25 at 1945, Until Sun01/21/25 at 1999, Intra-op 1944 (Given - Provid er: Marisol Dye RN) midazolam hcl (VERSED) injection (CANCELED) PRN, Starting on Sun01/21/25 at 1945, Until Sun01/21/25 at 1999, Intra-op 1944 (Given - Provid er: Marisol Dye RN)194 (Given - Provider: Marisol Dye RN) Scheduled Medication Order 03/16/2025 03/17/2025 03/18/2025 sodium chloride 0.9% bolus 0.9 % solution 1,000 mL (COMPLETED) 1,000 mL, Intravenous, Administer over 31 Minutes, On Sun03/17/25 at 2345, ONCE, 1 dose 2324 (New Bag - Provider: Miranda Douglass RN) 0033 (Infusion Complete - Provider: Miranda Douglass RN) Source Comments (unrecognize d section and content) In the event this informatio n is protected by the Federal Confidentiality of Alcohol and Drug Abuse Patient Records regulations: The Federal rules restrict any use of the information to criminally investigate or prosecute any alcohol or drug abuse patient.[facility] the event this information is protected by the Federal Confidentiality of Alcohol and Drug Abuse Patient Records regulations: The Federal rules restrict any use of the information to criminally investigate or prosecute any alcohol or drug abuse patient.[facility] the event this information is protected by the Federal Confidentiality of Alcohol and Drug Abuse Patient Records regulations: The Federal rules restrict any use of the information to criminally investigate or prosecute any alcohol or drug abuse patient.[facility] the event this information is protected by the Federal Confidentiality of Alcohol and Drug Abuse Patient Records regulations: The Federal rules restrict any use of the information to criminally investigate or prosecute any alcohol or drug abuse patient.[facility] the event this information is protected by the Federal Confidentiality of Alcohol and Drug Abuse Patient Records regulations: The Federal rules restrict any use of the information to criminally investigate or prosecute any alcohol or drug abuse patient.[facility] the event this information is protected by the Federal Confidentiality of Alcohol and Drug Abuse Patient Records regulations: The Federal rules restrict any use of the information to criminally investigate or prosecute any alcohol or drug abuse patient.[facility] the event this information is protected by the Federal Confidentiality of Alcohol and Drug Abuse Patient Records regulations: The Federal rules restrict any use of the information to criminally investigate or prosecute any alcohol or drug abuse patient.[facility] the event this information is protected by the Federal Confidentiality of Alcohol and Drug Abuse Patient Records regulations: The Federal rules restrict any use of the information to criminally investigate or prosecute any alcohol or drug abuse patient.[facility] the event this information is protected by the Federal Confidentiality of Alcohol and Drug Abuse Patient Records regulations: The Federal rules restrict any use of the information to criminally investigate or prosecute any alcohol or drug abuse patient.[facility] the event this information is protected by the Federal Confidentiality of Alcohol and Drug Abuse Patient Records regulations: The Federal rules restrict any use of the information to criminally investigate or prosecute any alcohol or drug abuse patient.[facility] the event this information is protected by the Federal Confidentiality of Alcohol and Drug Abuse Patient Records regulations: The Federal rules restrict any use of the information to criminally investigate or prosecute any alcohol or drug abuse patient.[facility] the event this information is protected by the Federal Confidentiality of Alcohol and Drug Abuse Patient Records regulations: The Federal rules restrict any use of the information to criminally investigate or prosecute any alcohol or drug abuse patient.[facility] the event this information is protected by the Federal Confidentiality of Alcohol and Drug Abuse Patient Records regulations: The Federal rules restrict any use of the information to criminally investigate or prosecute any alcohol or drug abuse patient.[facility] the event this information is protected by the Federal Confidentiality of Alcohol and Drug Abuse Patient Records regulations: The Federal rules restrict any use of the information to criminally investigate or prosecute any alcohol or drug abuse patient.[facility] the event this information is protected by the Federal Confidentiality of Alcohol and Drug Abuse Patient Records regulations: The Federal rules restrict any use of the information to criminally investigate or prosecute any alcohol or drug abuse patient.[facility] the event this information is protected by the Federal Confidentiality of Alcohol and Drug Abuse Patient Records regulations: The Federal rules restrict any use of the information to criminally investigate or prosecute any alcohol or drug abuse patient.[facility] the event this information is protected by the Federal Confidentiality of Alcohol and Drug Abuse Patient Records regulations: The Federal rules restrict any use of the information to criminally investigate or prosecute any alcohol or drug abuse patient.[facility] the event this information is protected by the Federal Confidentiality of Alcohol and Drug Abuse Patient Records regulations: The Federal rules restrict any use of the information to criminally investigate or prosecute any alcohol or drug abuse patient.[facility] the event this information is protected by the Federal Confidentiality of Alcohol and Drug Abuse Patient Records regulations: The Federal rules restrict any use of the information to criminally investigate or prosecute any alcohol or drug abuse patient.[facility] FOR RECORDS PERTAINING TO PATIENTS WHO ARE OR HAVE BEEN ENROLLED IN A CHEMICAL DEPENDENCY/SUBSTANCEABUSE PROGRAM, SOME INFORMATION MAY BE OMITTED. This clinical summary was aggregated from multiple sources. Caution should be exercised in using it in the provision of clinical care. This summary normalizes information from multiple sources, and as a consequence, information in this document may materially change the coding, format and clinical context of patient data. In addition, data may be omitted in some cases. CLINICAL DECISIONS SHOULD BE BASED ON THE PRIMARY CLINICAL RECORDS. [facility]. provides no warranty or guarantee of the accuracy or completeness of information in this document.
--- NOTE | 2025-03-24 18:28 | STRESSREP ---
Stress Test Report Pharmacologic myocardial perfusion stress test. 74-year-old lady with a history of coronary artery disease Resting EKG demonstrates sinus rhythm with a rate of 60 bpm. Resting blood pressure is 158/80 mmHg. 0.4 mg of regadenoson was infused per usual protocol followed by rapid intravenous saline flush injection. Continuous EKG monitoring was performed. The maximum heart rate was 80 bpm which was 54% of max impacted heart rate the maximum workload was 1 metabolic equivalent. At rest there were no ST or T wave changes noted to suggest ischemia and at peak infusion nonspecific ST changes were noted which did not meet the criteria for ischemia. No clinical angina is noted. The final blood pressure was 156/70 mmHg. Myocardial perfusion protocol. 11.1 mCi of technetium 99m sestamibi was injected at rest. 0.4 mg of regadenoson was infused per usual protocol. At peak infusion 33.3 mCi of technetium 99m sestamibi was injected stress images were obtained stress and rest images were reconstructed and compared in the short axis vertical long and horizontal long axis. Gated images were also obtained. Perfusion SPECT analysis: Review of the stress images demonstrate normal uptake of tracer noted in all areas of the myocardium. There is a small defect noted in the anteroseptal wall. The resting images similar demonstrated normal uptake of tracer noted in all areas of the myocardium. Small defect noted in the anteroseptal wall. No areas of reversibility are noted to suggest ischemia and no previous infarct is noted. Gated SPECT analysis: The gated ejection fraction is 73%. Conclusion: Normal pharmacologic myocardial perfusion stress test. Preserved ejection fraction.
== END | disposition home or self-care (01) ==
PROVIDERS: Referring Provider Physician Assistant Medical; Visit Provider Physician Assistant Medical
DX: R06.00 Dyspnea, unspecified (principal); Z95.5 Presence of coronary angioplasty implant and graft
CPT/HCPCS: 78452; 93017; A9500; A4216; J2785

== ENCOUNTER → 2025-05-20 | Outpatient (CLI) | payer MEDICARE, OTHER, SELFPAY ==
[2025-05-20 17:43] LABS: AST(SGOT) 16 U/L (<=31); Alanine Aminotransfer ALT/SGPT 12 U/L (<=34); Albumin, Serum 4.0 g/dL (3.4-4.8); Alkaline Phosphatase 74 U/L (35-104); Anion Gap 12 (5-15); BUN 22 mg/dL (4-19); BUN/Creat Ratio 20.8 RATIO (10-20); Calcium,Total 9.2 mg/dL (7.6-11.0); Carbon Dioxide 23.7 mmol/L (21.0-32.0); Chloride 102 mmol/L (98-108); Cholesterol 166 mg/dL (<=200); Globulin 2.9 g/dL (2.2-4.2); Glucose 107 mg/dL (70-99); Low Density Lipoprotein Calc. 84 mg/dL; Potassium 4.4 mmol/L (3.3-5.1); Triglycerides 129 mg/dL; Very Low Density Lipoprotein 26 mg/dL (5-40); cholesterol:hdl ratio screen 2.96
== END | disposition home or self-care (01) ==
LOC: LAB 16:18
PROVIDERS: Referring Provider Physician Assistant Medical; Visit Provider Physician Assistant Medical
DX: E78.5 Hyperlipidemia, unspecified (principal)
CPT/HCPCS: 36415; 80053; 80061

== ENCOUNTER → 2025-06-04 | Outpatient (CLI) | payer MEDICARE, OTHER, SELFPAY | END | disposition home or self-care (01) | LOC: SL 20:02 | PROVIDERS: Referring Provider Physician Assistant Medical; Visit Provider Physician Assistant Medical | DX: G47.33 Obstructive sleep apnea (adult) (pediatric) (principal) | CPT/HCPCS: 95811 ==

== ENCOUNTER → 2025-08-18 | Outpatient (CLI) | payer MEDICARE, OTHER, SELFPAY ==
[2025-08-18 09:25] LABS: Hematocrit 27.4 % (37-47); Hemoglobin 7.6 g/dL (12.0-15.0); Immature Granulocytes Count 0.020 X10^3/uL (0.0-0.0); Mean Corp Hgb Conc 27.7 g/dL (32-36); Mean Corpuscular Volume 64.2 fL (81-99); Mean Platelet Vol. 9.1 fl (6.2-12.0); NRBC Flagged by Analyzer 0 % (0-5); Platelet Count 366 K/mm3 (150-450); RBC Distribution Width CV 17.9 % (11.6-14.6); RBC Distribution Width SD 40.5 fl (35.1-43.9); Red Blood Count 4.27 M/mm3 (4.2-5.4); White Blood Count 7.5 K/mm3 (4.4-11.0)
[2025-08-18 10:05] LABS: Anion Gap 10 (5-15); BUN 20 mg/dL (4-19); BUN/Creat Ratio 19.6 RATIO (10-20); Calcium,Total 9.3 mg/dL (7.6-11.0); Carbon Dioxide 25.1 mmol/L (21.0-32.0); Chloride 103 mmol/L (98-108); Glucose 104 mg/dL (70-99); Magnesium 2.2 mg/dL (1.5-2.2); Potassium 4.3 mmol/L (3.3-5.1); Pro- Brain NATRIURETIC PEPTIDE 161 pg/mL (<=900)
== END | disposition home or self-care (01) ==
LOC: LAB 09:09
PROVIDERS: Referring Provider Nurse Practitioner Family; Visit Provider Nurse Practitioner Family
DX: R42 Dizziness and giddiness (principal); R06.00 Dyspnea, unspecified; I25.10 Atherosclerotic heart disease of native coronary artery without angina pectoris; R53.83 Other fatigue
CPT/HCPCS: 36415; 80048; 83735; 83880; 84443; 85025

== ENCOUNTER → 2025-09-07 | Outpatient (CLI) | payer MEDICARE, OTHER, SELFPAY ==
--- NOTE | 2025-09-07 13:46 | ECHOCS_ITS ---
Reason For Study Reason For Study: DYSPNEA/SOB Procedure This was a 2D Doppler, Color Flow transthoracic echocardiogram. The study was technically difficult. Contrast injection was performed. Exam performed in department. Left Ventricle Normal LV size. The left ventricular ejection fraction is 60 %. Mild segmental systolic dysfunction (see wall motion). Mid-anteroseptal : Hypokinetic. Mid-Anterior : Hypokinetic. Mid-inferoseptal : Akinetic. The rest of the wall segments are normal. Right Ventricle Normal RV size. Normal systolic function. Atria Normal left atrium. Normal right atrium. Mitral Valve Normal mitral valve. Mild (1+) eccentric mitral valve insufficiency. Tricuspid Valve Normal tricuspid valve. Mild (1+) tricuspid valve insufficiency. Pulmonary artery systolic pressure is 24 mmHg. Aortic Valve Trisinus/trileaflet aortic valve. Mild (1+) aortic valve insufficiency. Pulmonic Valve Normal pulmonic valve. Great Vessels Normal aortic root. The pulmonary artery is normal size. Inferior vena cava collapse with sniff. Pericardium/Pleural No pericardial effusion. Medication 22 gauge I.V. with prn adaptor inserted into right arm. Diluted definity 1.5ml given slow IV push to enhance endocardial definition. MMode/2D Measurements & Calculations LVIDd: 4.7 cm IVSd: 0.65 cm Ao root diam: 3.2 cm LVIDs: 3.3 cm LVPWd: 0.78 cm RVDd: 3.2 cm FS: 28.9 % LAV(MOD-bp): 45.6 ml LVAd ap4: 31.4 cm2 LVAd ap2: 28.5 cm2 LAV(MOD-bp) Indexed: 25.4 ml/m2 LVLd ap4: 7.8 cm LVLd ap2: 7.5 cm LAV(MOD-sp2): 22.6 ml EDV(MOD-sp4): 102.9 ml EDV(MOD-sp2): 90.0 ml LAV(MOD-sp4): 56.1 ml EDV(sp4-el): 107.0 ml EDV(sp2-el): 92.1 ml LVAs ap4: 17.4 cm2 LVAs ap2: 16.1 cm2 LVLs ap4: 6.3 cm LVLs ap2: 6.3 cm ESV(MOD-sp4): 39.4 ml ESV(MOD-sp2): 34.1 ml ESV(sp4-el): 40.4 ml ESV(sp2-el): 34.8 ml EF(MOD-sp4): 61.7 % EF(MOD-sp2): 62.2 % EF(sp4-el): 62.3 % SV(MOD-sp4): 63.5 ml SV(MOD-sp2): 55.9 ml SV(sp4-el): 66.6 ml SI(MOD-sp4): 35.3 ml/m2 SI(MOD-sp2): 31.1 ml/m2 LA A4 area: 21.0 cm2 LA dimension(2D): 4.1 cm RA A4 area: 10.7 cm2 TAPSE: 1.2 cm Time Measurements MV dec time: 0.27 sec Doppler Measurements & Calculations MV E max brandon: 48.4 cm/sec Lat Peak E' Brandon: 7.4 cm/sec Med Peak E' Brandon: 7.6 cm/sec MV A max brandon: 73.5 cm/sec E/E' lat: 6.6 E/E' med: 6.4 MV E/A: 0.66 MV dec slope: 180.8 cm/sec2 Ao V2 max: 138.6 cm/sec AI max brandon: 423.4 cm/sec Ao max P.7 mmHg AI max P.0 mmHg Ao V2 mean: 95.1 cm/sec AI dec slope: 153.4 cm/sec2 Ao mean P.0 mmHg AI P1/2t: 808.1 msec Ao V2 VTI: 28.2 cm AV (velocity ratio): 0.67 LV V1 max: 83.2 cm/sec PA V2 max: 100.1 cm/sec TR max brandon: 228.0 cm/sec LV V1 max P.8 mmHg TR max P.8 mmHg LV V1 mean P.6 mmHg LV V1 mean: 60.2 cm/sec LV V1 VTI: 18.8 cm ECHO/Echo Complete W/ Contrast Interpretation Summary Normal LV size. The left ventricular ejection fraction is 60 %. Mild (1+) eccentric mitral valve insufficiency. Pulmonary artery systolic pressure is 24 mmHg. Mild (1+) aortic valve insufficiency. Mild segmental systolic dysfunction (see wall motion). Compared to previous study, the left ventricular systolic function has improved .. Contrast injection was performed. Ordering Physician: Jacob Renae Referring Physician: Efrain Gibson Performed By: Chapis Pickens RDCS
--- NOTE | 2025-09-07 13:46 | CDU_ITS ---
Reason For Study Reason For Study: Tinnitus Rt. Velocities/BP Lt. Velocities/BP Prox CCA 50.9/10.7 cm/sec. Prox CCA 66.7/15.1 cm/sec. Mid CCA 62.2/13.3 cm/sec. Mid CCA 71.6/15.1 cm/sec. Dist CCA 57.8/11.6 cm/sec. Dist CCA 76.5/18.8 cm/sec. Prox ICA 55.1/14.5 cm/sec. Prox ICA 57.5/15.7 cm/sec. Mid ICA 82.8/26.7 cm/sec. Mid ICA 93.8/25.6 cm/sec. Dist ICA 86.1/22.3 cm/sec. Dist ICA 58.1/16.3 cm/sec. Rt. ICA/CCA = 1.38. Lt. ICA/CCA = 1.31. Prox ECA 108.3//6 cm/sec. Prox ECA 65.2/6.9 cm/sec. Rt. Vert. 99.8/18.8 cm/sec. Lt. Vert. 58.9/9.7 cm/sec. Right Extracranial There is intimal thickening but no significant atherosclerotic plaque noted in the right common carotid artery. There is heterogeneous, irregular atherosclerotic plaque noted in the right internal carotid artery. There is intimal thickening but no significant atherosclerotic plaque noted in the right external carotid artery. Antegrade flow is noted in the right vertebral artery. Left Extracranial There is intimal thickening but no significant atherosclerotic plaque noted in the left common carotid artery. There is heterogeneous, irregular atherosclerotic plaque noted in the left internal carotid artery. There is intimal thickening but no significant atherosclerotic plaque noted in the left external carotid artery. Antegrade flow is noted in the left vertebral artery. Procedure Carotid Duplex [id number]. This is a Carotid Duplex examination using B-mode, color flow and specral Doppler. Definity constrast agent used on Echocardiogram prior to exam. Exam performed in department. VL/Carotid Duplex Ultrasound Interpretation Summary Mild (<50%) stenosis right extracranial internal carotid. Mild (<50%) stenosis left extracranial internal carotid. Flow within the vertebral arteries is antegrade bilaterally. Ordering Physician: aJcob Renae Referring Physician: Efrain Gibson Performed By: Adriana Sierra RVT
== END | disposition home or self-care (01) ==
LOC: CVS 13:43
PROVIDERS: Referring Provider Nurse Practitioner Family; Visit Provider Nurse Practitioner Family
DX: R06.00 Dyspnea, unspecified (principal); I65.22 Occlusion and stenosis of left carotid artery; Z95.5 Presence of coronary angioplasty implant and graft; I10 Essential (primary) hypertension; E78.5 Hyperlipidemia, unspecified; R42 Dizziness and giddiness
CPT/HCPCS: 93306; 93880; Q9957; A4216; C8929